=== PATIENT | female | born 1945 | race Caucasian/White ===

== ENCOUNTER 2016-07-10 14:14 | Outpatient (RCR) | payer MEDICARE ==
[~2016-07-10 14:14] MED LIST: ALBU8.5H2 IH; AMLO10TA82 PO; ASP81TEC PO; ATOR40TA PO; CLOP75TA PO; ETD200C PO; FEXO180T PO; FURO40TA4 PO; HYDR-3062 PO; HYDR-3584 PO; ISM30TCR PO; ISOS30TA3 PO; KCL20TCR PO; LEVO750T24 GT; LISI-593 PO; LISI40TA PO; LOPE2CAP29 PO; LORA10TA7 PO; LSNP10T PO; LSNP20T PO; MELO-198 PO; MNTL10T PO; MORP15TA PO; MS15TCR PO; NAPR-243 PO; NF-ESOM40C PO; NITR12SP5 TL; Oxygen NS; PNT40TEC PO; ROPI0.25 PO; ROPI0.5T PO; ROPI0.5T2 PO; ROPI1TAB PO; SMV20T PO; TRAM50TA2 PO; TRM50T PO
== END 2016-07-10 15:20 | disposition home or self-care (01) ==
PROVIDERS: ATTEND Nurse Practitioner Community Health
DX: M79.602 Pain in left arm (principal)

== ENCOUNTER 2017-01-18 18:20 | Emergency (ER) | payer MEDICARE ==
[~2017-01-18] VITALS: Ht 157.5 cm; Wt 74.8 kg
--- OUTSIDE RECORDS SUMMARY | 2017-01-18 18:26 | XMS REPORT ---
Author Author FUENTES PATIÑO Organization [employer] Address Unknown Phone Unavailable Care Team Providers Care Ham Clerk Name Role Phone FUENTES PATIÑO CP Unavailable Allergies No Known Allergies Problems Problem Type Condition Code Onset Dates Condition Status Problem Low back pain, unspecified back pain laterality, with sciatica presence unspecified M54.5 Active Problem Chronic obstructive pulmonary disease, unspecified COPD type J44.9 Active Problem Atherosclerotic heart disease of [place] coronary artery without angina pectoris I25.10 Active Medications No Known Medications Results No Known Results Summary Purpose eClinicalWorks Submission
--- OUTSIDE RECORDS SUMMARY | 2017-01-18 18:26 | XMS REPORT ---
Author Author FUENTES PATIÑO Organization [facility] Address [address] [place] [address] Care Team Providers Care Carpet Cutter Name Role Phone FUENTES PATIÑO Unavailable PROBLEMS Type Condition ICD9-CM Code XSF12-DT Code Onset Dates Condition Status SNOMED Code Problem Other chronic pain G89.29 Active 57277695 Problem Episodic cluster headache, not intractable G44.019 Active 466888390 Problem Low back pain, unspecified back pain laterality, with sciatica presence unspecified M54.5 Active 539964020 Problem Chronic obstructive pulmonary disease, unspecified COPD type J44.9 Active 74493537 Problem Acute pain due to injury G89.11 Active 615548575 Problem Atherosclerotic heart disease of [place] coronary artery without angina pectoris I25.10 Active [id number] ALLERGIES Unknown Allergies SOCIAL HISTORY No smoking Hx information available PLAN OF CARE VITAL SIGNS MEDICATIONS Medication Instructions Dosage Frequency Start Date End Date Duration Status Hydrocodone-Acetaminophen 5-325 MG Orally twice a day 1 tablet 12h 28 Jan, 2016 28 days Active RESULTS No Results PROCEDURES No Known procedures IMMUNIZATIONS No Known Immunizations
--- OUTSIDE RECORDS SUMMARY | 2017-01-18 18:26 | XMS REPORT ---
Author Author FUENTES PATIÑO Organization [employer] Address Unknown Phone Unavailable Care Team Providers Care Electronic Engraver Name Role Phone FUENTES PATIÑO CP Unavailable Allergies No Known Allergies Problems Problem Type Condition Code Onset Dates Condition Status Problem Atherosclerotic heart disease of [place] coronary artery without angina pectoris I25.10 Active Problem Low back pain, unspecified back pain laterality, with sciatica presence unspecified M54.5 Active Problem Acute pain due to injury G89.11 Active Problem Chronic obstructive pulmonary disease, unspecified COPD type J44.9 Active Assessment Low back pain, unspecified back pain laterality, with sciatica presence unspecified M54.5 Active Medications No Known Medications Results No Known Results Summary Purpose [employer]ClinicalWorks Submission
--- OUTSIDE RECORDS SUMMARY | 2017-01-18 18:26 | XMS REPORT ---
Author Author FUENTES PATIÑO Organization [employer] Address Unknown Phone Unavailable Care Team Providers Care Bail Bond Agent Name Role Phone FUENTES PATIÑO CP Unavailable Allergies No Known Allergies Problems Problem Type Condition Code Onset Dates Condition Status Problem Atherosclerotic heart disease of [place] coronary artery without angina pectoris I25.10 Active Problem Low back pain, unspecified back pain laterality, with sciatica presence unspecified M54.5 Active Problem Acute pain due to injury G89.11 Active Problem Chronic obstructive pulmonary disease, unspecified COPD type J44.9 Active Medications Medication Code System Code Instructions Start Date End Date Status Dosage Hydrocodone-Acetaminophen [facility] [address]-23 5-325 MG Orally twice a day May 05, 2014 1 tablet Results No Known Results Summary Purpose eClinicalWorks Submission
--- OUTSIDE RECORDS SUMMARY | 2017-01-18 18:26 | XMS REPORT ---
Author Author FUENTES PATIÑO Organization [employer] Address Unknown Phone Unavailable Care Team Providers Care Branch Manager Trainee Name Role Phone FUENTES PATIÑO CP Unavailable Allergies No Known Allergies Problems Problem Type Condition Code Onset Dates Condition Status Problem Atherosclerotic heart disease of [place] coronary artery without angina pectoris I25.10 Active Problem Low back pain, unspecified back pain laterality, with sciatica presence unspecified M54.5 Active Problem Acute pain due to injury G89.11 Active Problem Chronic obstructive pulmonary disease, unspecified COPD type J44.9 Active Medications Medication Code System Code Instructions Start Date End Date Status Dosage Claritin [facility] [address]-44 10 MG Orally 2 times a day 1 tablet Simvastatin [facility] [address]-52 20 MG TAKE ONE TABLET BY MOUTH AT BEDTIME Results No Known Results Summary Purpose eClinicalWorks Submission
--- OUTSIDE RECORDS SUMMARY | 2017-01-18 18:26 | XMS REPORT ---
Author Author FUENTES PATIÑO Organization [employer] Address Unknown Phone Unavailable Care Team Providers Care Checkout Supervisor Name Role Phone FUENTES PATIÑO CP Unavailable Allergies No Known Allergies Problems Problem Type Condition Code Onset Dates Condition Status Problem Atherosclerotic heart disease of [place] coronary artery without angina pectoris I25.10 Active Problem Low back pain, unspecified back pain laterality, with sciatica presence unspecified M54.5 Active Problem Acute pain due to injury G89.11 Active Problem Chronic obstructive pulmonary disease, unspecified COPD type J44.9 Active Medications Medication Code System Code Instructions Start Date End Date Status Dosage Etodolac [facility] [address]-69 200 MG Orally 3 times a day 1 capsule as needed Results No Known Results Summary Purpose eClinicalWorks Submission
--- OUTSIDE RECORDS SUMMARY | 2017-01-18 18:26 | XMS REPORT ---
Author Author FUENTES PATIÑO Organization [employer] Address Unknown Phone Unavailable Care Team Providers Care Senior Manager Creative Services Name Role Phone FUENTES PATIÑO CP Unavailable Allergies No Known Allergies Problems Problem Type Condition Code Onset Dates Condition Status Problem Atherosclerotic heart disease of [place] coronary artery without angina pectoris I25.10 Active Problem Low back pain, unspecified back pain laterality, with sciatica presence unspecified M54.5 Active Problem Acute pain due to injury G89.11 Active Problem Chronic obstructive pulmonary disease, unspecified COPD type J44.9 Active Medications Medication Code System Code Instructions Start Date End Date Status Dosage Hydrocodone-Acetaminophen [facility] [address]-83 5-325 MG 2 times a day May 05, 2014 1 tablet by Oral route 3 times per day Results No Known Results Summary Purpose eClinicalWorks Submission
--- OUTSIDE RECORDS SUMMARY | 2017-01-18 18:26 | XMS REPORT ---
Author Author FUENTES PATIÑO [facility] eClinical[employer] Address Unknown Phone Unavailable Care Team Providers Care Trust Vault Clerk Name Role Phone FUENTES PATIÑO CP Unavailable Allergies, Adverse Reactions, Alerts Substance Reaction Event Type Dilantin Info Not Available Drug Allergy Demerol Info Not Available Drug Allergy Aleve Info Not Available Drug Allergy Problems Problem Type Condition Code Onset Dates Condition Status Problem Atherosclerotic heart disease of [place] coronary artery without angina pectoris I25.10 Active Problem Low back pain, unspecified back pain laterality, with sciatica presence unspecified M54.5 Active Problem Acute pain due to injury G89.11 Active Assessment Acute pain due to injury G89.11 Active Problem Chronic obstructive pulmonary disease, unspecified COPD type J44.9 Active Assessment Other chronic pain G89.29 Active Medications Medication Code System Code Instructions Start Date End Date Status Dosage Zocor [facility] [address]-54 20 MG August 30, 2013 1 Tablet by Oral route 1 time per day--repository Lisinopril [facility] [address]-90 10 MG Orally August 02, 2013 take 2 tablet by Oral route 1 time per day-- trepository- pantoprazole NDC 0 40 mg August 07, 2012 take 1 tablet (40 mg) by oral route once daily-- repository Requip [facility] [id number] 0.5 MG Orally Once a day 1 tablet 1 to 3 hours before bedtime HydrOXYzine HCl [facility] [address]-97 25 mg Jan 26, 2014 take 1-2 tablet by Oral route 6 times per hour Albuterol NDC 0 90 mcg/actuation Inhalation Three times a day May 10, 2013 2 puffs by Inhalation route every 4 hours PRN Singulair [facility] [address]-92 10 MG Orally Once a day Dec 10, 2013 1 tablet by Oral route 1 time per day Gentamicin Sulfate [facility] [address]-37 0.3 % Ophthalmic Three times a day July 27, 2014 1 drop into affected eye Isosorbide Mononitrate [facility] [address]-53 30 mg Oct 08, 2013 take 1 tablet (30 mg) by oral route once daily in the morning Tizanidine HCl [facility] [address]-12 2 MG Orally Once a day at bedtime Feb 08, 2015 1 tablet as needed Etodolac [facility] [address]-86 200 MG Orally 3 times a day 1 capsule as needed HydrOXYzine HCl [facility] [address]-36 10 mg Orally every 6 hrs Jan 26, 2014 2-5 mg repository Imdur [facility] [id number] 30 MG TAKE ONE TABLET BY MOUTH ONCE DAILY Claritin [facility] 01997208539 10 MG Orally 2 times a day 1 tablet Acetaminophen [facility] [address]-33 500 mg Nov 05, 2012 1-2 tablet(s ) by Oral route every 6 hours PRN knee pain Lisinopril [facility] [address]-98 40 MG Orally Once a day Dec 15, 2014 1 tablet Simvastatin [facility] 08522405903 20 MG TAKE ONE TABLET BY MOUTH AT BEDTIME Hydrocodone-Acetaminophen [facility] [address]-57 5-325 MG x2 weeks May 05, 2014 1 tablet by Oral route 3 times per day Aspirin [facility] [address]-66 81 mg August 26, 2013 take 1 tablet by Oral route 1 time per day enteric coated Aspirin EC Low Dose [facility] 04771595477 81 MG TAKE ONE TABLET BY MOUTH ONCE DAILY Procedures Procedure Coding System Code Date Office Visit, Est Pt., Level 3 CPT-4 30302 Feb 08, 2015 [facility] VISIT ESTABLISHED PATIENT CPT-4 G0467 Feb 08, 2015 Vital Signs Date/Time: Feb 08, 2015 Temperature 97.12 F Weight 166.7 lbs Height 62 in BMI 30.49 Index Blood Pressure Diastolic 92 mmHg Blood Pressure Systolic 140 mmHg Cardiac Monitoring Heart Rate 64 bpm Results No Known Results Summary Purpose eClinicalWorks Submission
--- OUTSIDE RECORDS SUMMARY | 2017-01-18 18:26 | XMS REPORT ---
Author Author FUENTES PATIÑO [facility] [employer] Address Unknown Phone Unavailable Care Team Providers Care French Folding Machine Operator Name Role Phone FUENTES PATIÑO CP Unavailable Allergies No Known Allergies Problems Problem Type Condition Code Onset Dates Condition Status Problem Atherosclerotic heart disease of [place] coronary artery without angina pectoris I25.10 Active Problem Low back pain, unspecified back pain laterality, with sciatica presence unspecified M54.5 Active Problem Acute pain due to injury G89.11 Active Problem Chronic obstructive pulmonary disease, unspecified COPD type J44.9 Active Assessment Chronic obstructive pulmonary disease, unspecified COPD type J44.9 Active Medications Medication Code System Code Instructions Start Date End Date Status Dosage Singulair [facility] [address]-42 10 mg Orally Once a day Dec 10, 2013 1 tablet Aspirin EC Low Dose [facility] 96975178044 81 MG TAKE ONE TABLET BY MOUTH ONCE DAILY Etodolac [facility] [address]-36 200 mg Orally 3 times a day as needed for hand pain August 01, 2015 1 tablet Metformin HCl [facility] 97729064821 500 MG TAKE ONE TABELT BY MOUTH EVERY MORNING FOR 1 WEEK, THEN INCREASE TO TAKE ONE TABLET BY MOUTH TWICE DAILY Hydrocodone-Acetaminophen [facility] [address]-38 5-325 MG Orally twice a day May 05, 2014 1 tablet Zocor [facility] [address]-33 20 MG August 30, 2013 1 Tablet by Oral route 1 time per day Isosorbide Mononitrate [facility] [address]-80 30 MG Oct 08, 2013 take 1 tablet (30 mg) by oral route once daily in the morning ProAir HFA [facility] [address]-78 108 (90 Base) MCG/ACT Inhalation every 4 hrs September 08, 2015 2 puffs as needed for cough or wheeze Lisinopril [facility] [address]-05 40 mg Orally Once a day Dec 15, 2014 1 tablet Etodolac [facility] [address]-60 200 MG Orally 3 times a day 1 capsule as needed Requip [facility] [address]-28 0.5 MG Orally Once a day 1 tablet 1 to 3 hours before bedtime Results No Known Results Summary Purpose eClinicalWorks Submission
--- OUTSIDE RECORDS SUMMARY | 2017-01-18 18:26 | XMS REPORT ---
Author Author FUENTES PATIÑO Organization [employer] Address Unknown Phone Unavailable Care Team Providers Care Western Felt Hat Blocker Name Role Phone FUENTES PATIÑO CP Unavailable Allergies No Known Allergies Problems Problem Type Condition Code Onset Dates Condition Status Problem Atherosclerotic heart disease of [place] coronary artery without angina pectoris I25.10 Active Problem Low back pain, unspecified back pain laterality, with sciatica presence unspecified M54.5 Active Problem Acute pain due to injury G89.11 Active Problem Chronic obstructive pulmonary disease, unspecified COPD type J44.9 Active Assessment Low back pain, unspecified back pain laterality, with sciatica presence unspecified M54.5 Active Medications Medication Code System Code Instructions Start Date End Date Status Dosage Zocor [facility] [address]-55 20 MG August 30, 2013 1 Tablet by Oral route 1 time per day Etodolac [facility] [address]-80 200 MG Orally 3 times a day 1 capsule as needed ProAir HFA [facility] [address]-97 108 (90 Base) MCG/ACT Inhalation every 4 hrs September 08, 2015 2 puffs as needed for cough or wheeze Lisinopril [facility] [address]-87 40 mg Orally Once a day Dec 15, 2014 1 tablet Hydrocodone-Acetaminophen [facility] [address]-28 5-325 MG Orally twice a day May 05, 2014 1 tablet Isosorbide Mononitrate [facility] [address]-48 30 MG Oct 08, 2013 take 1 tablet (30 mg) by oral route once daily in the morning Singulair [facility] 59106546415 10 MG Take 1 tablet by mouth once a day Aspirin EC Low Dose [facility] 49540758803 81 MG TAKE ONE TABLET BY MOUTH ONCE DAILY Results No Known Results Summary Purpose eClinicalWorks Submission
--- OUTSIDE RECORDS SUMMARY | 2017-01-18 18:26 | XMS REPORT ---
Author Author ROSIE FISH Organization [facility] Address [address] [place] [address] Care Team Providers Care Hot Knife Cutter Name Role Phone ROSIE FISH Unavailable PROBLEMS Type Condition ICD9-CM Code [id number] Code Onset Dates Condition Status SNOMED Code Problem Other chronic pain G89.29 Active 85962651 Problem Episodic cluster headache, not intractable G44.019 Active 071257551 Problem Low back pain, unspecified back pain laterality, with sciatica presence unspecified M54.5 Active 286015114 Problem Chronic obstructive pulmonary disease, unspecified COPD type J44.9 Active 06156054 Problem Acute pain due to injury G89.11 Active 897667711 Problem Atherosclerotic heart disease of [place] coronary artery without angina pectoris I25.10 Active 7856771437320 ALLERGIES Substance Reaction Event Type Date Status Dilantin Unknown Drug Allergy Jan, Active Demerol Unknown Drug Allergy Jan, Active Benadryl rash Drug Allergy Jan, Active Aleve Unknown Drug Allergy Jan, Active SOCIAL HISTORY No smoking Hx information available PLAN OF CARE Activity Details Follow Up 2 Months Reason:nail trimming VITAL SIGNS Height 62 in 2016-02-13 Weight 170.7 lbs 2016-02-13 Temperature 97.8 degrees Fahrenheit 2016-02-13 Heart Rate 62 bpm 2016-02-13 Respiratory Rate 2016-02-13 BMI 31.22 kg/m2 2016-02-13 Blood pressure systolic 132 mmHg 2016-02-13 Blood pressure diastolic 86 mmHg 2016-02-13 MEDICATIONS Medication Instructions Dosage Frequency Start Date End Date Duration Status Singulair 10 MG Take 1 tablet by mouth once a day 90 Active Isosorbide Mononitrate 30 MG take 1 tablet (30 mg) by oral route once daily in the morning Sep, 90 Active Lisinopril 40 mg Orally Once a day 1 tablet 24h Nov, 90 days Active ProAir HFA 108 (90 Base) MCG/ACT Inhalation every 4 hrs 2 puffs as needed for cough or wheeze 4h 15 Aug, 2015 90 days Active Hydrocodone-Acetaminophen 5-325 MG Orally twice a day 1 tablet 12h 12 Apr, 2014 28 days Active Zocor 20 MG 1 Tablet by Oral route 1 time per day Aug, Active Etodolac 200 MG Orally 3 times a day 1 capsule as needed 8h Active RESULTS No Results PROCEDURES Procedure Date Ordered Related Diagnosis Body Site TRIM NAIL(S) 2016-02-13 N/A TRIM NAIL(S) Feb 13, 2016 Office Visit, Est Pt., Level 2 Feb 13, 2016 [facility] VISIT ESTABLISHED PATIENT Feb 13, 2016 IMMUNIZATIONS No Known Immunizations
--- OUTSIDE RECORDS SUMMARY | 2017-01-18 18:27 | XMS REPORT ---
Author Author FUENTES PATIÑO Organization [facility] Address [address] [place] [address] Care Team Providers Care Healthcare Advisory Services Manager Name Role Phone FUENTES PATIÑO Unavailable PROBLEMS Type Condition ICD9-CM Code [id number] Code Onset Dates Condition Status SNOMED Code Problem Other chronic pain G89.29 Active 23002307 Problem Episodic cluster headache, not intractable G44.019 Active 615337497 Problem Low back pain, unspecified back pain laterality, with sciatica presence unspecified M54.5 Active 685145429 Problem Chronic obstructive pulmonary disease, unspecified COPD type J44.9 Active 82188894 Problem Acute pain due to injury G89.11 Active 149652240 Problem Atherosclerotic heart disease of [place] coronary artery without angina pectoris I25.10 Active 3622514561541 ALLERGIES Unknown Allergies SOCIAL HISTORY No smoking Hx information available PLAN OF CARE VITAL SIGNS MEDICATIONS Medication Instructions Dosage Frequency Start Date End Date Duration Status Neurontin 100 MG Orally Once a day at bedtime 1 tablet Feb, 10 days Active RESULTS No Results PROCEDURES No Known procedures IMMUNIZATIONS No Known Immunizations
--- OUTSIDE RECORDS SUMMARY | 2017-01-18 18:27 | XMS REPORT ---
Author FUENTES Hatfield Organization [employer] Address Unknown Phone Unavailable Care Team Providers Care Python Architect Name Role Phone FUENTES PATIÑO CP Unavailable Allergies No Known Allergies Problems Problem Type Condition Code Onset Dates Condition Status Problem Atherosclerotic heart disease of [place] coronary artery without angina pectoris I25.10 Active Problem Low back pain, unspecified back pain laterality, with sciatica presence unspecified M54.5 Active Problem Acute pain due to injury G89.11 Active Problem Chronic obstructive pulmonary disease, unspecified COPD type J44.9 Active Medications Medication Code System Code Instructions Start Date End Date Status Dosage Hydrocodone-Acetaminophen [facility] [address]-51 5-325 MG Orally twice a day May 05, 2014 1 tablet Results No Known Results Summary Purpose eClinicalWorks Submission
--- OUTSIDE RECORDS SUMMARY | 2017-01-18 18:27 | XMS REPORT ---
Author Author FUENTES PATIÑO Organization [employer] Address Unknown Phone Unavailable Care Team Providers Care Ornamental Metal Erector Name Role Phone FUENTES PATIÑO CP Unavailable Allergies No Known Allergies Problems Problem Type Condition Code Onset Dates Condition Status Problem Atherosclerotic heart disease of [place] coronary artery without angina pectoris I25.10 Active [...] Hydrocodone-Acetaminophen [facility] [address]-34 5-325 MG Orally twice a day May 05, 2014 1 tablet Results No Known Results Summary Purpose eClinicalWorks Submission
--- OUTSIDE RECORDS SUMMARY | 2017-01-18 18:27 | XMS REPORT ---
Author Author EDA TINEO [facility] Address [address] [place] [id number] Phone Unavailable Care Team Providers Care Athletic Equipment Manager Name Role Phone EDA TINEO Unavailable Unavailable PROBLEMS Type Condition ICD9-CM Code [id number] Code Onset Dates Condition Status SNOMED Code Problem Other chronic pain G89.29 Active 89868587 Problem Episodic cluster headache, not intractable G44.019 Active 922494245 Problem Chronic obstructive pulmonary disease, unspecified COPD type J44.9 Active 95495387 Problem Low back pain, unspecified back pain laterality, with sciatica presence unspecified M54.5 Active 014497494 Problem Acute pain due to injury G89.11 Active 152954573 Problem Atherosclerotic heart disease of [place] coronary artery without angina pectoris I25.10 Active 1507442393750 ALLERGIES Substance Reaction Event Type Date Status Dilantin Unknown Drug Allergy Feb, Active Demerol Unknown Drug Allergy Feb, Active Benadryl rash Drug Allergy Feb, Active Aleve Unknown Drug Allergy Feb, Active SOCIAL HISTORY No smoking Hx information available PLAN OF CARE Activity Details Follow Up dania Reason:[place]IL[place] VITAL SIGNS Blood pressure systolic 133 mmHg 2016-02-26 Blood pressure diastolic 82 mmHg 2016-02-26 MEDICATIONS Medication Instructions Dosage Frequency Start Date End Date Duration Status Isosorbide Mononitrate 30 MG take 1 tablet (30 mg) by oral route once daily in the morning Sep, 90 Active Singulair 10 MG Take 1 tablet by mouth once a day 90 Active Hydrocodone-Acetaminophen 5-325 MG Orally twice a day 1 tablet 12h Jan, 28 days Active Neurontin 100 MG Orally Once a day at bedtime 1 tablet Feb, 10 days Active Lisinopril 40 mg Orally Once a day 1 tablet 24h Nov, 90 days Active Oxygen ... by inhalation route at bedtime 2L via nasal canula Active ProAir HFA 108 (90 Base) MCG/ACT Inhalation every 4 hrs 2 puffs as needed for cough or wheeze 4h Aug, 90 days Active PredniSONE 10 mg Orally 3 tabs daily X 3 days, 2 tabs dailyX 2 days 1 tab for 1 day 4 tablet daily X 4 days. Jan, Feb, 10 days Active Zocor 20 MG 1 Tablet by Oral route 1 time per day Aug, Active Aspirin EC Low Dose 81 MG TAKE ONE TABLET BY MOUTH ONCE DAILY 120 Active Etodolac 200 mg Orally 3 times a day as needed for hand pain 1 tablet Jul, Active RESULTS No Results PROCEDURES Procedure Date Ordered Related Diagnosis Body Site INTRAORL-PERIAPICAL 1 FILM 91652 Feb 26, 2016 INTRAORL-PERIAPICAL EA ADD FILM Feb 26, 2016 PROPHYLAXIS - ADULT Feb 26, 2016 PANORAMIC FILM SEE ALSO CODE 80391 Feb 26, 2016 TOPICAL FLUORIDE VARNISH Feb 26, 2016 BITEWINGS - THREE FILMS Feb 26, 2016 IMMUNIZATIONS No Known Immunizations
--- OUTSIDE RECORDS SUMMARY | 2017-01-18 18:27 | XMS REPORT ---
Author FUENTES [facility] eClinicalWorks Address Unknown Phone Unavailable Care Team Providers Care Lining Machine Tender Name Role Phone FUENTES PATIÑO CP Unavailable [...] J44.9 Active Problem Atherosclerotic heart disease of [place] coronary artery without angina pectoris I25.10 Active Assessment Essential hypertension I10 Active Assessment Viral infection, unspecified B34.9 Active Medications Medication Code System Code Instructions Start Date End Date Status Dosage Isosorbide Mononitrate [facility] [address]-19 30 mg Oct 08, 2013 take 1 tablet (30 mg) by oral route once daily in the morning HydrOXYzine HCl [facility] [address]-20 10 mg Orally every 6 hrs Jan 26, 2014 2-5 mg repository Gentamicin Sulfate [facility] [address]-41 0.3 % Ophthalmic Three times a day July 27, 2014 1 drop into affected eye pantoprazole [facility] 0 40 mg August 07, 2012 take 1 tablet (40 mg) by oral route once daily-- repository Etodolac [facility] [address]-97 200 MG Orally 3 times a day 1 capsule as needed Aspirin [facility] [address]-02 81 mg August 26, 2013 take 1 tablet by Oral route 1 time per day enteric coated Zocor [facility] [address]-41 20 MG August 30, 2013 1 Tablet by Oral route 1 time per day--repository Simvastatin [facility] 22738119790 20 MG TAKE ONE TABLET BY MOUTH AT BEDTIME Acetaminophen [facility] [address]-77 500 mg Nov 05, 2012 1-2 tablet(s ) by Oral route every 6 hours PRN knee pain Claritin [facility] 25454422148 10 MG Orally 2 times a day 1 tablet Imdur [facility] 95336297733 30 MG TAKE ONE TABLET BY MOUTH ONCE DAILY Lisinopril [facility] [address]-89 40 MG Orally Once a day Dec 15, 2014 1 tablet Aspirin EC Low Dose [facility] 74595523823 81 MG TAKE ONE TABLET BY MOUTH ONCE DAILY Albuterol [facility] 0 90 mcg/actuation Inhalation Three times a day May 10, 2013 2 puffs by Inhalation route every 4 hours PRN Hydrocodone-Acetaminophen [facility] [address]-11 5-325 MG May 05, 2014 1 tablet by Oral route 2 times per day for knee pain HydrOXYzine HCl [facility] [address]-47 25 mg Jan 26, 2014 take 1-2 tablet by Oral route 6 times per hour Singulair [facility] [address]-47 10 MG Orally Once a day Dec 10, 2013 1 tablet by Oral route 1 time per day Requip [facility] [address]-48 0.5 MG Orally Once a day July 27, 2014 1 tablet 1 to 3 hours before bedtime Lisinopril [facility] [address]-71 10 MG Orally August 02, 2013 take 2 tablet by Oral route 1 time per day-- trepository- Lisinopril [facility] [address]-22 20 mg August 02, 2013 take 1 tablet by Oral route 1 time per day Procedures Procedure Coding System Code Date Office Visit, Est Pt., Level 3 CPT-4 18075 Dec 15, 2014 [facility] VISIT ESTABLISHED PATIENT CPT-4 G0467 Dec 15, 2014 Vital Signs Date/Time: Dec 15, 2014 Temperature 97.5 F Weight 170 lbs Height 62 in BMI 31.09 Index Blood Pressure Diastolic 98 mmHg Blood Pressure Systolic 160 mmHg Cardiac Monitoring Heart Rate 80 bpm Results No Known Results Summary Purpose eClinicalWorks Submission
--- OUTSIDE RECORDS SUMMARY | 2017-01-18 18:27 | XMS REPORT ---
Author Author FUENTES PATIÑO Organization eClinicalWorks Address Unknown Phone Unavailable Care Team Providers Care Fresh Work Inspector Name Role Phone FUENTES PATIÑO CP Unavailable Allergies No Known Allergies Problems Problem Type Condition Code Onset Dates Condition Status Problem Atherosclerotic heart disease of [place] coronary artery without angina pectoris I25.10 Active Problem Low back pain, unspecified back pain laterality, with sciatica presence unspecified M54.5 Active Problem Acute pain due to injury G89.11 Active Problem Chronic obstructive pulmonary disease, unspecified COPD type J44.9 Active Assessment Low back pain, unspecified back pain laterality, with sciatica presence unspecified M54.5 Active Medications No Known Medications Procedures Procedure Coding System Code Date No Charge CPT-4 83998 Feb 08, 2015 Results Name Result Date Reference Range Unit Abnormality Flag [employer] Summary Purpose eClinicalWorks Submission
--- OUTSIDE RECORDS SUMMARY | 2017-01-18 18:27 | XMS REPORT ---
Author Author FUENTES PATIÑO Organization eClinicalWorks Address Unknown Phone Unavailable Care Team Providers Care Silk Conditioner Name Role Phone FUENTES PATIÑO CP Unavailable Allergies No Known Allergies Problems Problem Type Condition Code Onset Dates Condition Status Problem Atherosclerotic heart disease of [place] coronary artery without angina pectoris I25.10 Active Problem Low back pain, unspecified back pain laterality, with sciatica presence unspecified M54.5 Active Problem Acute pain due to injury G89.11 Active Problem Chronic obstructive pulmonary disease, unspecified COPD type J44.9 Active Medications Medication Code System Code Instructions Start Date End Date Status Dosage Lisinopril [facility] [address]-00 40 MG Orally Once a day Dec 15, 2014 1 tablet Requip [facility] [address]-83 0.5 MG Orally Once a day 1 tablet 1 to 3 hours before bedtime Singulair [facility] [address]-31 10 MG Orally Once a day Dec 10, 2013 1 tablet by Oral route 1 time per day Results No Known Results Summary Purpose eClinicalWorks Submission
--- OUTSIDE RECORDS SUMMARY | 2017-01-18 18:27 | XMS REPORT ---
Author Author FUENTES PATIÑO Organization [facility] Address [address] [place] [address] Care Team Providers Care Mold Closer Name Role Phone FUENTES PATIÑO Unavailable PROBLEMS Type Condition ICD9-CM Code [id number] Code Onset Dates Condition Status SNOMED Code Problem Other chronic pain G89.29 Active 22999686 Problem Episodic cluster headache, not intractable G44.019 Active 857289073 Problem Chronic obstructive pulmonary disease, unspecified COPD type J44.9 Active 66507245 Problem Low back pain, unspecified back pain laterality, with sciatica presence unspecified M54.5 Active 206673030 Problem Acute pain due to injury G89.11 Active 466347967 Problem Atherosclerotic heart disease of [place] coronary artery without angina pectoris I25.10 Active 4486916042239 ALLERGIES Unknown Allergies SOCIAL HISTORY No smoking Hx information available PLAN OF CARE VITAL SIGNS MEDICATIONS Medication Instructions Dosage Frequency Start Date End Date Duration Status Hydrocodone-Acetaminophen 5-325 MG Orally twice a day 1 tablet 12h Feb, 28 days Active RESULTS No Results PROCEDURES No Known procedures IMMUNIZATIONS No Known Immunizations
--- OUTSIDE RECORDS SUMMARY | 2017-01-18 18:27 | XMS REPORT ---
Author Author LORE PATIÑO Organization eClinicalWorks Address Unknown Phone Unavailable Care Team Providers Care Spinning Frame Fixer Name Role Phone LORE PATIÑO CP Unavailable Allergies No Known Allergies Problems Problem Type Condition ICD-9 Code Onset Dates Condition Status Problem Polyuria 788.42 Active Problem Lumbago 724.2 Active Problem Other and unspecified angina pectoris 413.9 Active Problem Dermatophytosis of nail 110.1 Active Problem Other screening mammogram V76.12 Active Problem Other and unspecified noninfectious gastroenteritis and colitis 558.9 Active Problem Dysphagia, unspecified 787.20 Active Problem Other abnormal glucose 790.29 Active Problem Chronic airway obstruction, not elsewhere classified 496 Active Problem Hemangioma of unspecified site 228.00 Active Problem Pneumonia, organism unspecified 486 Active Problem Other drug allergy 995.27 Active Problem Edema 782.3 Active Problem Headache 784.0 Active Problem Pain in soft tissues of limb 729.5 Active Problem Hypopotassemia 276.8 Active Problem Pain in joint, lower leg 719.46 Active Problem Coronary atherosclerosis of [place] coronary artery 414.01 Active Problem Dehydration 276.51 Active Problem Unspecified breast screening V76.10 Active Problem Unspecified infective otitis externa 380.10 Active Problem Coronary atherosclerosis of unspecified type of vessel, [place] or graft 414.00 Active Medications Medication Code System Code Instructions Start Date End Date Status Dosage Hydrocodone-Acetaminophen [facility] [address]-31 5-[address] Segovia to sign in Lore's absence May 05, 2014 1 tablet by Oral route 2 times per day for knee pain Results No Known Results Summary Purpose eClinicalWorks Submission
--- OUTSIDE RECORDS SUMMARY | 2017-01-18 18:27 | XMS REPORT ---
Author Author FUENTES PATIÑO Organization eClinicalWorks Address Unknown Phone Unavailable Care Team Providers Care Biopsychologist Name Role Phone FUENTES PATIÑO CP Unavailable Allergies No Known Allergies Problems Problem Type Condition Code Onset Dates Condition Status Problem Atherosclerotic heart disease of [place] coronary artery without angina pectoris I25.10 Active Problem Low back pain, unspecified back pain laterality, with sciatica presence unspecified M54.5 Active Problem Acute pain due to injury G89.11 Active Problem Chronic obstructive pulmonary disease, unspecified COPD type J44.9 Active Medications Medication Code System Code Instructions Start Date End Date Status Dosage Albuterol [facility] 0 90 mcg/actuation Inhalation Three times a day May 10, 2013 2 puffs by Inhalation route every 4 hours PRN Etodolac [facility] [address]-99 200 MG Orally 3 times a day 1 capsule as needed Isosorbide Mononitrate [facility] [address]-73 30 MG Oct 08, 2013 take 1 tablet (30 mg) by oral route once daily in the morning Results No Known Results Summary Purpose eClinicalWorks Submission
--- OUTSIDE RECORDS SUMMARY | 2017-01-18 18:27 | XMS REPORT ---
Author Author FUENTES PATIÑO Organization [facility] Address [address] [place] [address] Care Team Providers Care Jailer/Training Officer Name Role Phone FUENTES PATIÑO Unavailable PROBLEMS Type Condition ICD9-CM Code [id number] Code Onset Dates Condition Status SNOMED Code Problem Low back pain, unspecified back pain laterality, with sciatica presence unspecified M54.5 Active 241750047 Problem Acute bilateral low back pain with left-sided sciatica M54.42 Active 28729818 Problem Other chronic pain G89.29 Active 62943830 Problem Atherosclerotic heart disease of [place] coronary artery without angina pectoris I25.10 Active 7122128946639 Problem Chronic obstructive pulmonary disease, unspecified COPD type J44.9 Active 58723019 Problem Episodic cluster headache, not intractable G44.019 Active 712490182 Problem Acute pain due to injury G89.11 Active 041649019 ALLERGIES No Information SOCIAL HISTORY Never Assessed PLAN OF CARE VITAL SIGNS MEDICATIONS Medication Instructions Dosage Frequency Start Date End Date Duration Status Hydrocodone-Acetaminophen 5-325 MG Orally twice a day 1 tablet 12h 14 Jun, 2016 28 days Active RESULTS No Results PROCEDURES No Known procedures IMMUNIZATIONS No Known Immunizations MEDICAL (GENERAL) HISTORY Type Description Date Medical History hypertension Medical History hyperlipidemia Medical History type II diabetes Medical History osteoarthritis Medical History chronic obstructive pulmonary disease (COPD) Medical History coronary artery disease Medical History back pain (2 displaced vertebrae) Medical History echo (11/2012) WNL Medical History asthma Medical History restless leg syndrome Surgical History heart cath-stent mid to distal circumflex () 07/2012 Surgical History heart cath-stent to LAD for 60% stenosis () 08/2012 Surgical History heart cath-stents showed minimal dz, but were patent, 95% occlusion of small vessels; too small to stent ([facility]) 08/2013 Surgical History EGD-dilated stricture (I[facility]) 09/2012 Surgical History cholecystectomy Surgical History hysterectomy Surgical History appendectomy Surgical History spine surgery-halo (neck and back surgery) 1993 Surgical History carpal tunnel release Surgical History rectocele/cystocele repair, pessary fitted ([facility]) 05/2013 Surgical History Suspicious lesion removal 2015 Hospitalization History [facility] acute gastoentereritis, dehydration 06/06 Hospitalization History Heart Cath 2013
--- OUTSIDE RECORDS SUMMARY | 2017-01-18 18:28 | XMS REPORT ---
Author Author FUENTES PATIÑO [facility] Address [address] [place] [address] Care Team Providers Care Technician Name Role Phone FUENTES PATIÑO Unavailable PROBLEMS Type Condition ICD9-CM Code [id number] Code Onset Dates Condition Status SNOMED Code Problem Other chronic pain G89.29 Active 15422926 Problem Episodic cluster headache, not intractable G44.019 Active 555111483 Problem Low back pain, unspecified back pain laterality, with sciatica presence unspecified M54.5 Active 340266077 Problem Chronic obstructive pulmonary disease, unspecified COPD type J44.9 Active 11566302 Problem Acute pain due to injury G89.11 Active 114096409 Problem Atherosclerotic heart disease of [place] coronary artery without angina pectoris I25.10 Active 5462217256871 ALLERGIES Unknown Allergies SOCIAL HISTORY No smoking Hx information available PLAN OF CARE VITAL SIGNS MEDICATIONS Unknown Medications RESULTS No Results PROCEDURES No Known procedures IMMUNIZATIONS No Known Immunizations
--- OUTSIDE RECORDS SUMMARY | 2017-01-18 18:28 | XMS REPORT ---
Author Author ROSIE FISH Organization [facility] Address [address] [place] [address] Care Team Providers Care Personal Development Educator Name Role Phone ROSIE FISH Unavailable PROBLEMS Type Condition ICD9-CM Code ETC25-IT Code Onset Dates Condition Status SNOMED Code Problem Low back pain, unspecified back pain laterality, with sciatica presence unspecified M54.5 Active 158492177 Problem Acute bilateral low back pain with left-sided sciatica M54.42 Active 12371890 Problem Other chronic pain G89.29 Active 59723032 Problem Atherosclerotic heart disease of [place] coronary artery without angina pectoris I25.10 Active 3076709772035 Problem Chronic obstructive pulmonary disease, unspecified COPD type J44.9 Active 46047358 Problem Episodic cluster headache, not intractable G44.019 Active 919095537 Problem Acute pain due to injury G89.11 Active 727178459 ALLERGIES Substance Reaction Event Type Date Status Dilantin Unknown Drug Allergy Mar, Active Demerol Unknown Drug Allergy Mar, Active Benadryl rash Drug Allergy Mar, Active Aleve Unknown Drug Allergy Mar, Active SOCIAL HISTORY Never Assessed PLAN OF CARE Activity Details Follow Up 2 Months Reason:nail trimming. VITAL SIGNS Height 62 in 2016-04-23 Weight 168 lbs 2016-04-23 Heart Rate 80 bpm 2016-04-23 Respiratory Rate 18 2016-04-23 BMI 30.72 kg/m2 2016-04-23 Blood pressure systolic 130 mmHg 2016-04-23 Blood pressure diastolic 88 mmHg 2016-04-23 MEDICATIONS Medication Instructions Dosage Frequency Start Date End Date Duration Status Zocor 20 MG 1 Tablet by Oral route 1 time per day Aug, Active Mobic 15 MG Orally Once a day 1 tablet 24h Mar, 30 days Active Hydrocodone-Acetaminophen 5-325 MG Orally twice a day 1 tablet 12h Mar, 28 days Active Oxygen ... by inhalation route at bedtime 2L via nasal canula Active Neurontin 100 MG Orally Once a day at bedtime 1 tablet Feb, 10 days Active Ibuprofen 800 MG Orally Three times a day 1 tablet 8h 14 Mar, 2016Apr 30 day(s) Active Isosorbide Mononitrate 30 MG take 1 tablet (30 mg) by oral route once daily in the morning Sep, 90 Active ProAir HFA 108 (90 Base) MCG/ACT Inhalation every 4 hrs 2 puffs as needed for cough or wheeze 4h Aug, 90 days Active Singulair 10 MG Take 1 tablet by mouth once a day 90 Active Lisinopril 40 mg Orally Once a day 1 tablet 24h Nov, 90 days Active Aspirin EC Low Dose 81 MG TAKE ONE TABLET BY MOUTH ONCE DAILY 120 Active RESULTS No Results PROCEDURES Procedure Date Ordered Result Body Site [facility] VISIT ESTABLISHED PATIENT Apr 23, 2016 IMMUNIZATIONS No Known Immunizations MEDICAL (GENERAL) HISTORY [...] History heart cath-stent mid to distal circumflex ([facility]) 07/2012 Surgical History heart cath-stent to L[facility] for 60% stenosis [facility]) 08/2012 Surgical History heart cath-stents showed minimal dz, but were patent, 95% occlusion of small vessels; too small to stent ([facility]) 08/2013 Surgical History EGD-dilated stricture ([facility]) 09/2012 Surgical History cholecystectomy Surgical History hysterectomy Surgical History appendectomy Surgical History spine surgery-halo (neck and back surgery) 1993 Surgical History carpal tunnel release Surgical History rectocele/cystocele repair, pessary fitted ([facility]) 05/2013 Surgical History Suspicious lesion removal 2015 Hospitalization History [facility] acute gastoentereritis, dehydration 06/06 Hospitalization History Heart Cath 2013
--- OUTSIDE RECORDS SUMMARY | 2017-01-18 18:28 | XMS REPORT ---
Author Author FUENTES PATIÑO Organization [facility] Address [address] [place] [address] Care Team Providers Care Hat Forming Machine Feeder Name Role Phone FUENTSE PATIÑO Unavailable PROBLEMS Type Condition ICD9-CM Code QIO22-BL Code Onset Dates Condition Status SNOMED Code Problem Low back pain, unspecified back pain laterality, with sciatica presence unspecified M54.5 Active 779638862 Problem Acute bilateral low back pain with left-sided sciatica M54.42 Active 54266846 Problem Other chronic pain G89.29 Active 44666498 Problem Atherosclerotic heart disease of [place] coronary artery without angina pectoris I25.10 Active 6015536369095 Problem Chronic obstructive pulmonary disease, unspecified COPD type J44.9 Active 04753369 Problem Episodic cluster headache, not intractable G44.019 Active 454742258 Problem Acute pain due to injury G89.11 Active 102175447 ALLERGIES No Information SOCIAL HISTORY Never Assessed PLAN OF CARE VITAL SIGNS MEDICATIONS Medication Instructions Dosage Frequency Start Date End Date Duration Status Hydrocodone-Acetaminophen 5-325 MG Orally twice a day 1 tablet 12h 17 Apr, 2016 28 days Active RESULTS No Results [...] of small vessels; too small to stent () 08/2013 Surgical History EGD-dilated stricture (Ivan) 09/2012 Surgical History cholecystectomy Surgical History hysterectomy Surgical History appendectomy Surgical History spine surgery-halo (neck and back surgery) 1993 Surgical History carpal tunnel release Surgical History rectocele/cystocele repair, pessary fitted ([facility]) 05/2013 Surgical History Suspicious lesion removal 2015 Hospitalization History [facility] acute gastoentereritis, dehydration 06/06 Hospitalization History Heart Cath 2013
--- OUTSIDE RECORDS SUMMARY | 2017-01-18 18:28 | XMS REPORT ---
Author Author FUENTES PATIÑO Organization eClinicalWorks Address Unknown Phone Unavailable Care Team Providers Care Student Accounts Coordinator Name Role Phone FUENTES PATIÑO CP Unavailable Allergies No Known Allergies Problems Problem Type Condition Code Onset Dates Condition Status Problem Atherosclerotic heart disease of [place] coronary artery without angina pectoris I25.10 Active Problem Low back pain, unspecified back pain laterality, with sciatica presence unspecified M54.5 Active Problem Acute pain due to injury G89.11 Active Problem Chronic obstructive pulmonary disease, unspecified COPD type J44.9 Active Medications No Known Medications Results No Known Results Summary Purpose eClinicalWorks Submission
--- OUTSIDE RECORDS SUMMARY | 2017-01-18 18:28 | XMS REPORT ---
Author Author ROSIE FISH Organization [facility] Address [address] [place] [address] Care Team Providers Care Funeral Director'S Assistant Name Role Phone ROSIE FISH Unavailable PROBLEMS Type Condition ICD9-CM Code [id number] Code Onset Dates Condition Status SNOMED Code Problem Low back pain, unspecified back pain laterality, with sciatica presence unspecified M54.5 Active 452080395 Problem Acute bilateral low back pain with left-sided sciatica M54.42 Active 16690727 Problem Other chronic pain G89.29 Active 91032781 Problem Atherosclerotic heart disease of [place] coronary artery without angina pectoris I25.10 Active 9599809771929 Problem Chronic obstructive pulmonary disease, unspecified COPD type J44.9 Active 04777234 Problem Episodic cluster headache, not intractable G44.019 Active 326979506 Problem Acute pain due to injury G89.11 Active 535635960 ALLERGIES Substance Reaction Event Type Date Status Dilantin Unknown Drug Allergy June, Active Demerol Unknown Drug Allergy June, Active Benadryl rash Drug Allergy June, Active Aleve Unknown Drug Allergy June, Active SOCIAL HISTORY Never Assessed PLAN OF CARE Activity Details Follow Up 2 Months Reason:nail trimming Future/Pending Procedure TRIM NAIL(S) VITAL SIGNS Height 62 in 2016-07-19 Weight 167.8 lbs 2016-07-19 Temperature 98.3 degrees Fahrenheit 2016-07-19 Heart Rate 66 bpm 2016-07-19 Respiratory Rate 18 2016-07-19 BMI 30.69 kg/m2 2016-07-19 Blood pressure systolic 100 mmHg 2016-07-19 Blood pressure diastolic 70 mmHg 2016-07-19 MEDICATIONS Medication Instructions Dosage Frequency Start Date End Date Duration Status Oxygen ... by inhalation route at bedtime 2L via nasal canula Active Simvastatin 20 MG Take 1 tablet by mouth once a day in the evening 90 Active Lisinopril 40 mg Orally Once a day 1 tablet 24h Nov, 90 days Active Mobic 15 MG Orally Once a day 1 tablet 24h 30 Active Isosorbide Mononitrate 30 MG take 1 tablet (30 mg) by oral route once daily in the morning Sep, 90 Active Aspirin EC Low Dose 81 MG TAKE ONE TABLET BY MOUTH ONCE DAILY 120 Active Hydrocodone-Acetaminophen 5-325 MG Orally twice a day 1 tablet 12h June, 28 days Active Zocor 20 MG 1 Tablet by Oral route 1 time per day Aug, Active ProAir HFA 108 (90 Base) MCG/ACT Inhalation every 4 hrs 2 puffs as needed for cough or wheeze 4h Aug, 90 days Active Singulair 10 MG Orally Once a day 1 tablet 24h 90 days Active RESULTS No Results PROCEDURES Procedure Date Ordered Result Body Site TRIM NAIL(S) July 19, 2016 [facility] VIS[facility] ESTABLISHED PATIENT July 19, 2016 IMMUNIZATIONS No Known Immunizations MEDICAL (GENERAL) [...] heart cath-stent to LAD for 60% stenosis ([facility]) 08/2012 Surgical History heart cath-stents showed minimal dz, but were patent, 95% occlusion of small vessels; too small to stent ([facility]) 08/2013 Surgical History EGD-dilated stricture (Ivan) 09/2012 Surgical History cholecystectomy Surgical History hysterectomy Surgical History appendectomy Surgical History spine surgery-halo (neck and back surgery) 1993 Surgical History carpal tunnel release Surgical History rectocele/cystocele repair, pessary fitted ([facility]) 05/2013 Surgical History Suspicious lesion removal 2015 Hospitalization History [facility] acute gastoentereritis, dehydration 06/06 Hospitalization History Heart Cath 2013
--- OUTSIDE RECORDS SUMMARY | 2017-01-18 18:28 | XMS REPORT ---
Author Author FUENTES PATIÑO Organization eClinicalWorks Address Unknown Phone Unavailable Care Team Providers Care Guest Experience Representative Name Role Phone FUENTES PATIÑO CP Unavailable Allergies No Known Allergies Problems Problem Type Condition Code Onset Dates Condition Status Problem Atherosclerotic heart disease of [place] coronary artery without angina pectoris I25.10 Active Problem Low back pain, unspecified back pain laterality, with sciatica presence unspecified M54.5 Active Problem Acute pain due to injury G89.11 Active Problem Chronic obstructive pulmonary disease, unspecified COPD type J44.9 Active Medications No Known Medications Results No Known Results Summary Purpose eClinicalWorks Submission
--- OUTSIDE RECORDS SUMMARY | 2017-01-18 18:28 | XMS REPORT ---
Author Author [facility] Address Unknown Care Team Providers Care Manager Transportation Planning Name Role Phone BETY TAMAYO Unavailable PROBLEMS Type Condition ICD9-CM Code [id number] Code Onset Dates Condition Status SNOMED Code Problem Other chronic pain G89.29 Active 75928056 Problem Episodic cluster headache, not intractable G44.019 Active 006762833 Problem Chronic obstructive pulmonary disease, unspecified COPD type J44.9 Active 25772923 Problem Low back pain, unspecified back pain laterality, with sciatica presence unspecified M54.5 Active 422543760 Problem Acute pain due to injury G89.11 Active 918087471 Problem Atherosclerotic heart disease of [place] coronary artery without angina pectoris I25.10 Active 3586216288809 ALLERGIES Substance Reaction Event Type Date Status Dilantin Unknown Drug Allergy Feb, Active Demerol Unknown Drug Allergy Feb, Active Benadryl rash Drug Allergy Feb, Active Aleve Unknown Drug Allergy Feb, Active SOCIAL HISTORY No smoking Hx information available PLAN OF CARE Activity Details Follow Up 6 Months Reason:recall VITAL SIGNS MEDICATIONS Medication Instructions Dosage Frequency Start Date End Date Duration Status Isosorbide Mononitrate 30 MG take 1 tablet (30 mg) by oral route once daily in the morning Sep, 90 Active Oxygen ... by inhalation route at bedtime 2L via nasal canula Active Hydrocodone-Acetaminophen 5-325 MG Orally twice a day 1 tablet 12h Jan, 28 days Active Etodolac 200 mg Orally 3 times a day as needed for hand pain 1 tablet Jul, Active Lisinopril 40 mg Orally Once a day 1 tablet 24h Nov, 90 days Active ProAir HFA 108 (90 Base) MCG/ACT Inhalation every 4 hrs 2 puffs as needed for cough or wheeze 4h Aug, 90 days Active Singulair 10 MG Take 1 tablet by mouth once a day 90 Active Neurontin 100 MG Orally Once a day at bedtime 1 tablet Feb, 10 days Active Zocor 20 MG 1 Tablet by Oral route 1 time per day Aug, Active Aspirin EC Low Dose 81 MG TAKE ONE TABLET BY MOUTH ONCE DAILY 120 Active PredniSONE 10 mg Orally 3 tabs daily X 3 days, 2 tabs dailyX 2 days 1 tab for 1 day 4 tablet daily X 4 days. Jan, Feb, 10 days Active RESULTS No Results PROCEDURES Procedure Date Ordered Related Diagnosis Body Site COMP ORAL EVALUATION - NEW/EST PT Feb 27, 2016 IMMUNIZATIONS No Known Immunizations
--- OUTSIDE RECORDS SUMMARY | 2017-01-18 18:28 | XMS REPORT ---
Author Author AYE REYES Organization [facility] Address [address] [place] [address] Care Team Providers Care Sterile Proc Tech Name Role Phone KJ REYESICE Unavailable PROBLEMS Type Condition ICD9-CM Code [id number] Code Onset Dates Condition Status SNOMED Code Problem Low back pain, unspecified back pain laterality, with sciatica presence unspecified M54.5 Active 719363413 Problem Acute bilateral low back pain with left-sided sciatica M54.42 Active 07045254 Problem Other chronic pain G89.29 Active 88542416 Problem Atherosclerotic heart disease of the [place] coronary artery without angina pectoris I25.10 Active 6079614234650 Problem Chronic obstructive pulmonary disease, unspecified COPD type J44.9 Active 79869655 Problem Episodic cluster headache, not intractable G44.019 Active 885318695 Problem Acute pain due to injury G89.11 Active 501993519 ALLERGIES Substance Reaction Event Type Date Status Dilantin Unknown Drug Allergy Mar, Active Demerol Unknown Drug Allergy Mar, Active Benadryl rash Drug Allergy Mar, Active Aleve Unknown Drug Allergy Mar, Active SOCIAL HISTORY Never Assessed PLAN OF CARE Activity Details Follow Up prn Reason: VITAL SIGNS Height 62 in 2016-04-09 Weight 167.2 lbs 2016-04-09 Temperature 97.0 degrees Fahrenheit 2016-04-09 Heart Rate 80 bpm 2016-04-09 Respiratory Rate 18 2016-04-09 BMI 30.58 kg/m2 2016-04-09 Blood pressure systolic 128 mmHg 2016-04-09 Blood pressure diastolic 78 mmHg 2016-04-09 MEDICATIONS Medication Instructions Dosage Frequency Start Date End Date Duration Status Isosorbide Mononitrate CR 30 MG Take 1 tablet by mouth once daily in the morning 90 Active Singulair 10 MG Take 1 tablet by mouth once a day 90 Active Zocor 20 MG 1 Tablet by Oral route 1 time per day Aug, Active Isosorbide Mononitrate 30 MG take 1 tablet (30 mg) by oral route once daily in the morning Sep, 90 Active Aspirin EC Low Dose 81 MG TAKE ONE TABLET BY MOUTH ONCE DAILY 120 Active Hydrocodone-Acetaminophen 5-325 MG Orally twice a day 1 tablet 12h Feb, 28 days Active Oxygen ... by inhalation route at bedtime 2L via nasal canula Active Ibuprofen 800 MG Orally Three times a day 1 tablet 8h 14 Mar, 2016Apr 30 day(s) Active Neurontin 100 MG Orally Once a day at bedtime 1 tablet Feb, 10 days Active Lisinopril 40 mg Orally Once a day 1 tablet 24h Nov, 90 days Active ProAir HFA 108 (90 Base) MCG/ACT Inhalation every 4 hrs 2 puffs as needed for cough or wheeze 4h Aug, 90 days Active RESULTS No Results PROCEDURES Procedure Date Ordered Result Body Site [facility] VISIT ESTABLISHED PATIENT Apr 09, 2016 IMMUNIZATIONS No Known Immunizations MEDICAL (GENERAL) [...] stent (Cari) 08/2013 Surgical History EGD-dilated stricture (Love) 09/2012 Surgical History cholecystectomy Surgical History hysterectomy Surgical History appendectomy Surgical History spine surgery-halo (neck and back surgery) 1993 Surgical History carpal tunnel release Surgical History rectocele/cystocele repair, pessary fitted (Fenech) 05/2013 Surgical History Suspicious lesion removal 2015 Hospitalization History [facility] acute gastoentereritis, dehydration 06/06 Hospitalization History Heart Cath 2013
--- OUTSIDE RECORDS SUMMARY | 2017-01-18 18:28 | XMS REPORT ---
Author FUENTES [facility] eClinicalWorks Address Unknown Phone Unavailable Care Team Providers Care Hand Spinner Name Role Phone FUENTES PATIÑO CP Unavailable Allergies, Adverse Reactions, Alerts Substance Reaction Event Type Dilantin Info Not Available Drug Allergy Demerol Info Not Available Drug Allergy Benadryl rash Drug Allergy Aleve Info Not Available Drug Allergy Problems Problem Type Condition Code Onset Dates Condition Status Assessment Atypical mole L81.9 Active Problem Atherosclerotic heart disease of [place] coronary artery without angina pectoris I25.10 Active Problem Low back pain, unspecified back pain laterality, with sciatica presence unspecified M54.5 Active Problem Acute pain due to injury G89.11 Active Assessment Breast cancer screening Z12.39 Active Assessment Hyperlipidemia, unspecified hyperlipidemia type E78.5 Active Problem Chronic obstructive pulmonary disease, unspecified COPD type J44.9 Active Assessment Cramp of both lower extremities R25.2 Active Medications Medication Code System Code Instructions Start Date End Date Status Dosage Isosorbide Mononitrate [facility] [address]-44 30 MG Oct 08, 2013 take 1 tablet (30 mg) by oral route once daily in the morning Etodolac [facility] [address]-80 200 MG Orally 3 times a day 1 capsule as needed ProAir HFA [facility] [address]-46 108 (90 Base) MCG/ACT Inhalation every 4 hrs September 08, 2015 2 puffs as needed for cough or wheeze Lisinopril [facility] [address]-26 40 mg Orally Once a day Dec 15, 2014 1 tablet Singulair [facility] [address]-90 10 mg Orally Once a day Dec 10, 2013 1 tablet Aspirin EC Low Dose [facility] 83944158436 81 MG TAKE ONE TABLET BY MOUTH ONCE DAILY Etodolac [facility] [address]-51 200 mg Orally 3 times a day as needed for hand pain August 01, 2015 1 tablet Metformin HCl [facility] 98558824444 500 MG TAKE ONE TABELT BY MOUTH EVERY MORNING FOR 1 WEEK, THEN INCREASE TO TAKE ONE TABLET BY MOUTH TWICE DAILY Hydrocodone-Acetaminophen [facility] [address]-47 5-325 MG Orally twice a day May 05, 2014 1 tablet Zocor [facility] [address]-92 20 MG August 30, 2013 1 Tablet by Oral route 1 time per day Procedures Procedure Coding System Code Date [facility] VISIT ESTABLISHED PATIENT CPT-4 G0467 September 18, 2015 Office Visit, Est Pt., Level 3 CPT-4 62591 September 18, 2015 LAB NOT BILLED BY [facility] CPT-4 NOBLL September 18, 2015 VENIPUNCT, ROUTINE* CPT-4 93486 September 18, 2015 Vital Signs Date/Time: September 18, 2015 Cardiac Monitoring Heart Rate 51 bpm Weight 160.9 lbs Height 62 in BMI 29.43 Index Blood Pressure Diastolic 96 mmHg Blood Pressure Systolic 146 mmHg Results No Known Results Summary Purpose eClinicalWorks Submission
--- OUTSIDE RECORDS SUMMARY | 2017-01-18 18:28 | XMS REPORT ---
Author Author FUENTES PATIÑO Organization [employer] Address Unknown Phone Unavailable Care Team Providers Care Assembling Inspector Name Role Phone FUENTES PATIÑO CP Unavailable Allergies No Known Allergies Problems Problem Type Condition Code Onset Dates Condition Status Problem Atherosclerotic heart disease of [place] coronary artery without angina pectoris I25.10 Active Problem Low back pain, unspecified back pain laterality, with sciatica presence unspecified M54.5 Active Problem Acute pain due to injury G89.11 Active Problem Chronic obstructive pulmonary disease, unspecified COPD type J44.9 Active Assessment Allergic rhinitis, unspecified allergic rhinitis type J30.9 Active Medications No Known Medications Procedures Procedure Coding System Code Date THER/PROPH/DIAG INJ, SC/IM CPT-4 86957 August 07, 2015 KENALOG 40 MG/ML (PER 10 MG) CPT-4 J3301 August 07, 2015 Results No Known Results Summary Purpose eClinicalWorks Submission
--- OUTSIDE RECORDS SUMMARY | 2017-01-18 18:28 | XMS REPORT ---
Author Author FUENTES PATIÑO [facility] Address [address] [place] [address] Care Team Providers Care Commercial Sewing Instructor Name Role Phone FUENTES PATIÑO Unavailable PROBLEMS Type Condition ICD9-CM Code INN53-AT Code Onset Dates Condition Status SNOMED Code Problem Acute pain due to injury G89.11 Active 854024047 Problem Atherosclerotic heart disease of [place] coronary artery without angina pectoris I25.10 Active 6523667145390 Problem Low back pain, unspecified back pain laterality, with sciatica presence unspecified M54.5 Active 530921578 Problem Chronic obstructive pulmonary disease, unspecified COPD type J44.9 Active 04281323 ALLERGIES Unknown Allergies SOCIAL HISTORY No smoking Hx information available PLAN OF CARE VITAL SIGNS MEDICATIONS Unknown Medications RESULTS No Results PROCEDURES No Known procedures IMMUNIZATIONS No Known Immunizations
--- OUTSIDE RECORDS SUMMARY | 2017-01-18 18:28 | XMS REPORT ---
Author Author FUENTES PATIÑO Organization [facility] Address [address] [place] [address] Care Team Providers Care Timber Poisoner Name Role Phone FUENTES PATIÑO Unavailable PROBLEMS Type Condition ICD9-CM Code VFP64-HX Code Onset Dates Condition Status SNOMED Code Problem Low back pain, unspecified back pain laterality, with sciatica presence unspecified M54.5 Active 831095708 Problem Acute bilateral low back pain with left-sided sciatica M54.42 Active 57959735 Problem Other chronic pain G89.29 Active 61977052 Problem Atherosclerotic heart disease of [place] coronary artery without angina pectoris I25.10 Active 2988075336307 Problem Chronic obstructive pulmonary disease, unspecified COPD type J44.9 Active 68458490 Problem Episodic cluster headache, not intractable G44.019 Active 486617000 Problem Acute pain due to injury G89.11 Active 872327849 ALLERGIES No Information SOCIAL HISTORY Never Assessed PLAN OF CARE VITAL SIGNS MEDICATIONS No Known Medications RESULTS No Results PROCEDURES No Known [...] release Surgical History rectocele/cystocele repair, pessary fitted ([facility]) 05/2013 Surgical History Suspicious lesion removal 2015 Hospitalization History [facility] acute gastoentereritis, dehydration 06/06 Hospitalization History Heart Cath 2014
--- OUTSIDE RECORDS SUMMARY | 2017-01-18 18:29 | XMS REPORT ---
Author Author FUENTES PATIÑO Organization [employer] Address Unknown Phone Unavailable Care Team Providers Care Television Repairman Name Role Phone FUENTES PATIÑO CP Unavailable Allergies No Known Allergies Problems Problem Type Condition Code Onset Dates Condition Status Problem Atherosclerotic heart disease of [place] coronary artery without angina pectoris I25.10 Active Problem Low back pain, unspecified back pain laterality, with sciatica presence unspecified M54.5 Active Problem Acute pain due to injury G89.11 Active Problem Chronic obstructive pulmonary disease, unspecified COPD type J44.9 Active Medications Medication Code System Code Instructions Start Date End Date Status Dosage Zocor [facility] [address]-31 20 MG August 30, 2013 1 Tablet by Oral route 1 time per day Results No Known Results Summary Purpose eClinicalWorks Submission
--- OUTSIDE RECORDS SUMMARY | 2017-01-18 18:29 | XMS REPORT ---
Author Author FUENTES PATIÑO Organization [employer] Address Unknown Phone Unavailable Care Team Providers Care Floor Winder Name Role Phone FUENTES PATIÑO CP Unavailable Allergies No Known Allergies Problems Problem Type Condition Code Onset Dates Condition Status Problem Atherosclerotic heart disease of [place] coronary artery without angina pectoris I25.10 Active [...] Start Date End Date Status Dosage Hydrocodone-Acetaminophen [facility] [address]-56 5-325 MG Orally twice a day May 05, 2014 1 tablet Results No Known Results Summary Purpose eClinicalWorks Submission
--- OUTSIDE RECORDS SUMMARY | 2017-01-18 18:29 | XMS REPORT ---
Author Author FUENTES PATIÑO Organization [employer] Address Unknown Phone Unavailable Care Team Providers Care Photonics Engineering Technologist Name Role Phone FUENTES PATIÑO CP Unavailable [...] leg 719.46 Active Problem Coronary atherosclerosis of [place] coronary artery 414.01 Active Problem Dehydration 276.51 Active Problem Unspecified breast screening V76.10 Active Problem Unspecified infective otitis externa 380.10 Active Problem Coronary atherosclerosis of unspecified type of vessel, [place] or graft 414.00 Active Medications Medication Code System Code Instructions Start Date End Date Status Dosage [facility] [address]-42 10 MG Orally Once a day Dec 10, 2013 1 tablet by Oral route 1 time per day Results No Known Results Summary Purpose eClinicalWorks Submission
--- OUTSIDE RECORDS SUMMARY | 2017-01-18 18:29 | XMS REPORT ---
Author Author FUENTES PATIÑO Organization [facility] Address [address] [place] [address] Care Team Providers Care Sales And Marketing Assistant Name Role Phone FUENTES PATIÑO Unavailable PROBLEMS Type Condition ICD9-CM Code UOF11-LK Code Onset Dates Condition Status SNOMED Code Problem Low back pain, unspecified back pain laterality, with sciatica presence unspecified M54.5 Active 445922036 Problem Acute bilateral low back pain with left-sided sciatica M54.42 Active 57835901 Problem Other chronic pain G89.29 Active 40208220 Problem Atherosclerotic heart disease of [place] coronary artery without angina pectoris I25.10 Active 6060163320369 Problem Chronic obstructive pulmonary disease, unspecified COPD type J44.9 Active 31655901 Problem Episodic cluster headache, not intractable G44.019 Active 888420969 Problem Acute pain due to injury G89.11 Active 450930278 ALLERGIES No Information SOCIAL HISTORY Never Assessed PLAN OF CARE VITAL SIGNS MEDICATIONS Medication Instructions Dosage Frequency Start Date End Date Duration Status Hydrocodone-Acetaminophen 5-325 MG Orally twice a day 1 tablet 12h 17 Mar, 2016 28 days Active RESULTS No Results [...]
--- OUTSIDE RECORDS SUMMARY | 2017-01-18 18:29 | XMS REPORT ---
Author Author FUENTES PATIÑO Organization [facility] Address [address] [place] [address] Care Team Providers Care Ophthalmic Asst Name Role Phone FUENTES PATIÑO Unavailable PROBLEMS Type Condition ICD9-CM Code NVT62-EP Code Onset Dates Condition Status SNOMED Code Problem Other chronic pain G89.29 Active 69379537 Problem Episodic cluster headache, not intractable G44.019 Active 184731206 Problem Low back pain, unspecified back pain laterality, with sciatica presence unspecified M54.5 Active 283628944 Problem Chronic obstructive pulmonary disease, unspecified COPD type J44.9 Active 76063340 Problem Acute pain due to injury G89.11 Active 509488055 Problem Atherosclerotic heart disease of [place] coronary artery without angina pectoris I25.10 Active 1422669434527 ALLERGIES Substance Reaction Event Type Date Status Dilantin Unknown Drug Allergy Jan, Active Demerol Unknown Drug Allergy Jan, Active Benadryl rash Drug Allergy Jan, Active Aleve Unknown Drug Allergy Jan, Active SOCIAL HISTORY No smoking Hx information available PLAN OF CARE Activity Details Follow Up 4 Weeks Reason:headache VITAL SIGNS Height 62 in 2016-02-22 Weight 168.1 lbs 2016-02-22 Temperature 97.9 degrees Fahrenheit 2016-02-22 Heart Rate 52 bpm 2016-02-22 Respiratory Rate 20 2016-02-22 Oximetry on room air:97 % 2016-02-22 BMI 30.74 kg/m2 2016-02-22 Blood pressure systolic 130 mmHg 2016-02-22 Blood pressure diastolic 90 mmHg 2016-02-22 MEDICATIONS Medication Instructions Dosage Frequency Start Date End Date Duration Status ProAir HFA 108 (90 Base) MCG/ACT Inhalation every 4 hrs 2 puffs as needed for cough or wheeze 4h 15 Aug, 2015 90 days Active Singulair 10 MG Take 1 tablet by mouth once a day 90 Active PredniSONE 10 mg Orally 3 tabs daily X 3 days, 2 tabs dailyX 2 days 1 tab for 1 day 4 tablet daily X 4 days. Jan, Feb, 10 days Active Hydrocodone-Acetaminophen 5-325 MG Orally twice a day 1 tablet 12h Jan, 28 days Active Zocor 20 MG 1 Tablet by Oral route 1 time per day Aug, Active Lisinopril 40 mg Orally Once a day 1 tablet 24h 22 Nov, 2014 90 days Active Isosorbide Mononitrate 30 MG take 1 tablet (30 mg) by oral route once daily in the morning Sep, 90 Active Etodolac 200 mg Orally 3 times a day as needed for hand pain 1 tablet Jul, Active Carbamazepine 100 MG Orally Once a day at bedtime 1 tablet Jan, 30 day(s) Active Aspirin EC Low Dose 81 MG TAKE ONE TABLET BY MOUTH ONCE DAILY 120 Active Oxygen ... by inhalation route at bedtime 2L via nasal canula Active RESULTS Name Result Date Reference Range CBC 2016-02-22 WBC 9.9 3.4-10.8 RBC 4.33 3.77-5.28 Hemoglobin 12.4 11.1-15.9 Hematocrit 39.2 34.0-46.6 MCV 91 79-97 MCH 28.6 26.6-33.0 MCHC 31.6 31.5-35.7 RDW 13.3 12.3-15.4 Platelets 294 150-379 Neutrophils 47 Lymphs 42 Monocytes 8 Eos 2 Basos 1 Immature Cells Neutrophils (Absolute) 4.7 1.4-7.0 Lymphs (Absolute) 4.2 0.7-3.1 Monocytes(Absolute) 0.7 0.1-0.9 Eos (Absolute) 0.2 0.0-0.4 Baso (Absolute) 0.1 0.0-0.2 Immature Granulocytes 0 Immature Grans (Abs) 0.0 0.0-0.1 NRBC Hematology Comments: CMP 2016-02-22 Glucose, Serum 84 65-99 BUN 11 8-27 Creatinine, Serum 0.81 0.57-1.00 eGFR If NonAfricn Am 75 >59 eGFR If Africn Am 86 >59 BUN/Creatinine Ratio 14 11-26 Sodium, Serum 141 134-144 Potassium, Serum 3.7 3.5-5.2 Chloride, Serum 101 96-106 Carbon Dioxide, Total 29 18-29 Calcium, Serum 9.5 8.7-10.3 Protein, Total, Serum 6.5 6.0-8.5 Albumin, Serum 4.6 3.6-4.8 Globulin, Total 1.9 1.5-4.5 A/G Ratio 2.4 1.1-2.5 Bilirubin, Total 0.9 0.0-1.2 Alkaline Phosphatase, S 60 39-117 AST (SGOT) 11 0-40 ALT (SGPT) 8 0-32 ESR/SED RATE (IN HOUSE) 2016-02-22 SED/ESR RATE 13 mm/hr Lot # [id number] Exp Date 04/23/2016 0 - 30 mm PROCEDURES Procedure Date Ordered Related Diagnosis Body Site MEASURE BLOOD OXYGEN LEVEL Feb 22, 2016 [facility] EST[facility] PAT[facility] Feb 22, 2016 RBC SED RATE, NONAUTOMATED Feb 22, 2016 VENIPUNCT, ROUTINE* Feb 22, 2016 Office Visit, Est Pt., Level 3 Feb 22, 2016 IMMUNIZATIONS No Known Immunizations
--- OUTSIDE RECORDS SUMMARY | 2017-01-18 18:29 | XMS REPORT ---
Author Author FUENTES PATIÑO Organization [employer] Address Unknown Phone Unavailable Care Team Providers Care Oil Rig Driller Name Role Phone FUENTES PATIÑO CP Unavailable Allergies No Known Allergies Problems Problem Type Condition Code Onset Dates Condition Status Problem Low back pain, unspecified back pain laterality, with sciatica presence unspecified M54.5 Active Problem Chronic obstructive pulmonary disease, unspecified COPD type J44.9 Active Problem Atherosclerotic heart disease of [place] coronary artery without angina pectoris I25.10 Active Medications Medication Code System Code Instructions Start Date End Date Status Dosage Hydrocodone-Acetaminophen [facility] [address]-33 5-325 MG May 05, 2014 1 tablet by Oral route 2 times per day for knee pain Results No Known Results Summary Purpose eClinicalWorks Submission
--- OUTSIDE RECORDS SUMMARY | 2017-01-18 18:29 | XMS REPORT ---
Author Author FUENTES PATIÑO Organization [employer] Address Unknown Phone Unavailable Care Team Providers Care Drilling Manager Name Role Phone FUENTES PATIÑO CP Unavailable Allergies No Known Allergies Problems Problem Type Condition Code Onset Dates Condition Status Problem Atherosclerotic heart disease of [place] coronary artery without angina pectoris I25.10 Active Problem Low back pain, unspecified back pain laterality, with sciatica presence unspecified M54.5 Active Problem Acute pain due to injury G89.11 Active Problem Chronic obstructive pulmonary disease, unspecified COPD type J44.9 Active Assessment Chronic obstructive pulmonary disease, unspecified COPD type J44.9 Active Medications Medication Code System Code Instructions Start Date End Date Status Dosage [place] [facility] [address]-78 10 mg Orally Once a day Dec 10, 2013 1 tablet Results No Known Results Summary Purpose eClinicalWorks Submission
--- OUTSIDE RECORDS SUMMARY | 2017-01-18 18:29 | XMS REPORT ---
Author Author FUENTES PATIÑO Organization [facility] Address [address] [place] [address] Care Team Providers Care Materials Inspector Name Role Phone FUENTES PATIÑO Unavailable PROBLEMS Type Condition ICD9-CM Code DHU13-EB Code Onset Dates Condition Status SNOMED Code Problem Low back pain, unspecified back pain laterality, with sciatica presence unspecified M54.5 Active 230952827 Problem Acute bilateral low back pain with left-sided sciatica M54.42 Active 68193901 Problem Other chronic pain G89.29 Active 87904720 Problem Atherosclerotic heart disease of [place] coronary artery without angina pectoris I25.10 Active 9476592946860 Problem Chronic obstructive pulmonary disease, unspecified COPD type J44.9 Active 04740988 Problem Episodic cluster headache, not intractable G44.019 Active 737447994 Problem Acute pain due to injury G89.11 Active 305096218 ALLERGIES No Information SOCIAL HISTORY Never Assessed PLAN OF CARE VITAL SIGNS MEDICATIONS Medication Instructions Dosage Frequency Start Date End Date Duration Status Mobic 15 MG Orally Once a day 1 tablet 24h Mar, 30 days Active RESULTS No Results PROCEDURES No [...]
--- OUTSIDE RECORDS SUMMARY | 2017-01-18 18:29 | XMS REPORT ---
Author Author FUENTES PATIÑO [facility] Address [address] [place] [address] Care Team Providers Care Tar Boiler Name Role Phone FUENTES PATIÑO Unavailable PROBLEMS Type Condition ICD9-CM Code [id number] Code Onset Dates Condition Status SNOMED Code Problem Low back pain, unspecified back pain laterality, with sciatica presence unspecified M54.5 Active 957198244 Problem Acute bilateral low back pain with left-sided sciatica M54.42 Active 75437108 Problem Other chronic pain G89.29 Active 51432082 Problem Atherosclerotic heart disease of [place] coronary artery without angina pectoris I25.10 Active 9755683876804 Problem Chronic obstructive pulmonary disease, unspecified COPD type J44.9 Active 21787841 Problem Episodic cluster headache, not intractable G44.019 Active 404022795 Problem Acute pain due to injury G89.11 Active [id number] ALLERGIES No Known Allergies SOCIAL HISTORY No smoking Hx information available PLAN OF CARE VITAL SIGNS MEDICATIONS No Known Medications RESULTS No Results PROCEDURES No Known procedures IMMUNIZATIONS No Known Immunizations
--- OUTSIDE RECORDS SUMMARY | 2017-01-18 18:29 | XMS REPORT ---
Author Author FUENTES PATIÑO [facility] Address [address] [place] [address] Care Team Providers Care Passenger Rate Clerk Name Role Phone FUENTES PATIÑO Unavailable PROBLEMS Type Condition ICD9-CM Code [id number] Code Onset Dates Condition Status SNOMED Code Problem Other chronic pain G89.29 Active 35119843 Problem Episodic cluster headache, not intractable G44.019 Active 812466774 Problem Low back pain, unspecified back pain laterality, with sciatica presence unspecified M54.5 Active 986196497 Problem Chronic obstructive pulmonary disease, unspecified COPD type J44.9 Active 06698722 Problem Acute pain due to injury G89.11 Active 252829376 Problem Atherosclerotic heart disease of [place] coronary artery without angina pectoris I25.10 Active [id number] ALLERGIES Unknown Allergies SOCIAL HISTORY No smoking Hx information available PLAN OF CARE VITAL SIGNS MEDICATIONS Unknown Medications RESULTS No Results PROCEDURES No Known procedures IMMUNIZATIONS No Known Immunizations
--- OUTSIDE RECORDS SUMMARY | 2017-01-18 18:29 | XMS REPORT ---
Author Author FUENTES PATIÑO Organization [employer] Address Unknown Phone Unavailable Care Team Providers Care Substation Designer Name Role Phone FUENTES PATIÑO CP Unavailable Allergies No Known Allergies Problems Problem Type Condition Code Onset Dates Condition Status Problem Polyuria [...] leg 719.46 Active Problem Coronary atherosclerosis of [place] coronary artery 414.01 Active Problem Dehydration 276.51 Active Problem Unspecified breast screening V76.10 Active Problem Unspecified infective otitis externa 380.10 Active Problem Coronary atherosclerosis of unspecified type of vessel, [place] or graft 414.00 Active Medications Medication Code System Code Instructions Start Date End Date Status Dosage Silvadene [facility] [id number] 1 % Externally Once a day Nov 23, 2014Nov 1 application to affected area Results No Known Results Summary Purpose [employer] Submission
--- OUTSIDE RECORDS SUMMARY | 2017-01-18 18:29 | XMS REPORT ---
Author Author ROSIE FISH Organization [facility] Address [address] [place] [address] Care Team Providers Care Churner Name Role Phone ROSIE FISH Unavailable PROBLEMS Type Condition ICD9-CM Code [id number] Code Onset Dates Condition Status SNOMED Code Problem Acute pain due to injury G89.11 Active 327141889 Problem Atherosclerotic heart disease of [place] coronary artery without angina pectoris I25.10 Active 1210435753502 Assessment Onychomycosis B35.1 Oct, Active 481356190 Assessment Ingrown nail L60.0 Oct, Active 661235664 Problem Low back pain, unspecified back pain laterality, with sciatica presence unspecified M54.5 Active 270649573 Problem Chronic obstructive pulmonary disease, unspecified COPD type J44.9 Active 99258422 ALLERGIES Substance Reaction Event Type Date Status Dilantin Unknown Drug Allergy Oct, Active Demerol Unknown Drug Allergy Oct, Active Benadryl rash Drug Allergy Oct, Active Aleve Unknown Drug Allergy Oct, Active SOCIAL HISTORY No smoking Hx information available PLAN OF CARE VITAL SIGNS Height 62 in 2015-11-02 Weight 165.7 lbs 2015-11-02 Heart Rate 66 bpm 2015-11-02 Respiratory Rate 20 2015-11-02 BMI 30.30 kg/m2 2015-11-02 Blood pressure systolic 136 mmHg 2015-11-02 Blood pressure diastolic 78 mmHg 2015-11-02 MEDICATIONS Medication Instructions Dosage Frequency Start Date End Date Duration Status Isosorbide Mononitrate 30 MG take 1 tablet (30 mg) by oral route once daily in the morning Sep, Active Aspirin EC Low Dose 81 MG TAKE ONE TABLET BY MOUTH ONCE DAILY 120 Active Singulair 10 mg Orally Once a day 1 tablet 24h Nov, 90 days Active Etodolac 200 MG Orally 3 times a day 1 capsule as needed 8h Active Zocor 20 MG 1 Tablet by Oral route 1 time per day Aug, Active Lisinopril 40 mg Orally Once a day 1 tablet 24h 22 Nov, 2014 90 days Active ProAir HFA 108 (90 Base) MCG/ACT Inhalation every 4 hrs 2 puffs as needed for cough or wheeze 4h 15 Aug, 2015 90 days Active Hydrocodone-Acetaminophen 5-325 MG Orally twice a day 1 tablet 12h Apr, 28 days Active RESULTS No Results PROCEDURES Procedure Date Ordered Related Diagnosis Body Site NAIL REMOVAL SINGLE (COMPLETE OR PARTIAL) 2015-11-02 N/A REMOVAL OF NAIL PLATE Nov 02, 2015 Office Visit, Est Pt., Level 2 Nov 02, 2015 ON LICENSE OF [facility] VISIT ESTABLISHED PATIENT Nov 02, 2015 IMMUNIZATIONS No Known Immunizations
--- OUTSIDE RECORDS SUMMARY | 2017-01-18 18:29 | XMS REPORT ---
Author Author FUENTES PATIÑO Organization [employer] Address Unknown Phone Unavailable Care Team Providers Care Slide Fastener Repairer Name Role Phone FUENTES PATIÑO CP Unavailable Allergies No Known Allergies Problems Problem Type Condition Code Onset Dates Condition Status Problem Low back pain, unspecified back pain laterality, with sciatica presence unspecified M54.5 Active Problem Chronic obstructive pulmonary disease, unspecified COPD type J44.9 Active Problem Atherosclerotic heart disease of [place] coronary artery without angina pectoris I25.10 Active Medications Medication Code System Code Instructions Start Date End Date Status Dosage Hydrocodone-Acetaminophen [facility] [address]-17 5-325 MG May 05, 2014 1 tablet by Oral route 2 times per day for knee pain Results No Known Results Summary Purpose [employer] Submission
--- OUTSIDE RECORDS SUMMARY | 2017-01-18 18:30 | XMS REPORT ---
Author Author FUENTES PATIÑO Organization [employer] Address Unknown Phone Unavailable Care Team Providers Care Global Implementation Manager Name Role Phone FUENTES PATIÑO CP Unavailable Allergies No Known Allergies Problems Problem Type Condition Code Onset Dates Condition Status Problem Atherosclerotic heart disease of [place] coronary artery without angina pectoris I25.10 Active [...] Start Date End Date Status Dosage Hydrocodone-Acetaminophen [facility] [address]-72 5-325 MG Orally twice a day May 05, 2014 1 tablet Results No Known Results Summary Purpose [employer] Submission
[2017-01-18] MEDS ORDERED: IOHEXOL 350 MG/ML 100 ML (OMNIPAQUE 350) VIAL IV ONE (18:45)
[2017-01-18] MEDS ORDERED: NS 100 ML (IVPB) BAG IV ONE (18:45)
[2017-01-18 18:50] LABS: BASOPHILS # (AUTO) 0.1 10^3/uL (0.0-0.1); BASOPHILS % (AUTO) 1 % (0-10); EOSINOPHILS # (AUTO) 0.2 10^3/uL (0.0-0.3); EOSINOPHILS % (AUTO) 3 % (0-10); LYMPHOCYTES # (AUTO) 2.7 X 10^3 (1.0-4.0); LYMPHOCYTES % (AUTO) 32 % (12-44); MEAN CORPUSCULAR HEMOGLOBIN 29 PG (25-34); MEAN CORPUSCULAR HGB CONC 33 G/DL (32-36); MEAN CORPUSCULAR VOLUME 88 FL (80-99); MEAN PLATELET VOLUME 10.3 FL (7.4-10.4); MONOCYTES # (AUTO) 0.7 X 10^3 (0.0-1.0); MONOCYTES % (AUTO) 9 % (0-12); NEUTROPHILS # (AUTO) 4.8 X 10^3 (1.8-7.8); NEUTROPHILS % (AUTO) 56 % (42-75); PLATELET COUNT 243 10^3/uL (130-400); RED BLOOD COUNT 4.64 10^6/uL (4.35-5.85); RED CELL DISTRIBUTION WIDTH 12.8 % (10.0-14.5); WHITE BLOOD COUNT 8.5 10^3/uL (4.3-11.0)
[2017-01-18 18:51] LABS: BILIRUBIN,URINE NEGATIVE (NEGATIVE); KETONES,URINE NEGATIVE (NEGATIVE); LEUKOCYTE ESTERASE ,URINE NEGATIVE (NEGATIVE); NITRITE,URINE NEGATIVE (NEGATIVE); PH,URINE 6.5 (5-9); PROTEIN,URINE 1+ (NEGATIVE); UROBILINOGEN,URINE NORMAL (NORMAL)
[2017-01-18 19:00] LABS: INR 0.9 (0.8-1.4); PROTHROMBIN TIME PATIENT 12.4 SEC (12.2-14.7)
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
[2017-01-18 19:11] LABS: ALANINE AMINOTRANSFERASE 13 U/L (0-55); ALBUMIN 4.2 GM/DL (3.2-4.5); AMYLASE 49 U/L (25-125); ANION GAP 10 MMOL/L (5-14); ASPARTATE AMINO TRANSFERASE 12 U/L (5-34); BILIRUBIN,TOTAL 1.1 MG/DL (0.1-1.0); BLOOD UREA NITROGEN 11 MG/DL (7-18); BUN/CREATININE RATIO 15; CALCIUM 9.5 MG/DL (8.5-10.1); CARBON DIOXIDE 26 MMOL/L (21-32); CHLORIDE 104 MMOL/L (98-107); CREATININE SERUM 0.75 MG/DL (0.60-1.30); GFR ESTIMATED > 60; GLUCOSE 101 MG/DL (70-105); LIPASE 35 U/L (8-78); POTASSIUM 3.5 MMOL/L (3.6-5.0); SODIUM 140 MMOL/L (135-145); TOTAL PROTEIN 6.8 GM/DL (6.4-8.2)
[2017-01-18 19:17] LABS: TROPONIN I < 0.30 NG/ML (<0.30)
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
[2017-01-18] MEDS ORDERED: CYCL10TA9 PO (20:14)
[2017-01-18] MEDS ORDERED: RX-CYCLOBENZAPRINE 10 MG (FLEXERIL) TAB PPK#3 PO STA (20:14)
[2017-01-18 20:32] VITALS: BP 157/112
== END 2017-01-18 20:34 | disposition home or self-care (01) ==
LOC: EDUNIT# 18:20 → ER 18:21
DX: S16.1XXA Strain of muscle, fascia and tendon at neck level, initial encounter (principal); S39.012A Strain of muscle, fascia and tendon of lower back, initial encounter; S20.212A Contusion of left front wall of thorax, initial encounter; M54.2 Cervicalgia; M54.5 Low back pain; G89.29 Other chronic pain; J44.9 Chronic obstructive pulmonary disease, unspecified; I25.10 Atherosclerotic heart disease of native coronary artery without angina pectoris; E78.00 Pure hypercholesterolemia, unspecified; I10 Essential (primary) hypertension; K21.9 Gastro-esophageal reflux disease without esophagitis; M19.90 Unspecified osteoarthritis, unspecified site; E11.9 Type 2 diabetes mellitus without complications; Z79.82 Long term (current) use of aspirin; Z98.1 Arthrodesis status; Z90.49 Acquired absence of other specified parts of digestive tract; Z95.5 Presence of coronary angioplasty implant and graft; V49.40XA Driver injured in collision with unspecified motor vehicles in traffic accident, initial encounter
CPT/HCPCS: 36415; 70450; 71010; 71260; 72125; 72128; 72131; 72170; 74177; 80053; 81000; 82150; 83690; 84484; 85025; 85610; 85730; 93005; 93041

== ENCOUNTER → 2017-03-05 | Outpatient (CLI) | payer MEDICARE ==
[~2017-03-05] MED LIST changes: +CYCL10TA9 PO
== END ==
LOC: CARD 08:34
PROVIDERS: ATTEND Internal Medicine Cardiovascular Disease
DX: I25.10 Atherosclerotic heart disease of native coronary artery without angina pectoris (principal); R07.9 Chest pain, unspecified; I10 Essential (primary) hypertension; E78.2 Mixed hyperlipidemia
CPT/HCPCS: 93306

== ENCOUNTER → 2017-03-12 | Outpatient (CLI) | payer MEDICARE ==
[~2017-03-12] VITALS: Ht 157.5 cm; Wt 77.6 kg
[~2017-03-12] MED LIST changes: +CATHETER FLUSH 10 ML SYR IV PRN; +REGADENOSON 0.4 MG/5 ML SYR (LEXISCAN) IV ONE
[2017-03-12 09:06] VITALS: BP 167/104
--- NOTE | 2017-03-12 13:31 | STRESS TEST ---
DATE OF SERVICE: 03/12/2017 LEXISCAN MYOVIEW STRESS TEST REPORT REFERRING PHYSICIAN: [facility]. Baseline heart rate is 54, baseline blood pressure 175/100. Baseline EKG is sinus rhythm with no ischemic changes. In summary, the patient received 10.37 mCi of technetium-99 Myoview and the resting images were obtained. Then, the patient received 0.4 mg of Lexiscan followed by 32.4 mCi of technetium-99 Myoview. Throughout the test, there were no EKG changes. The resting and stress images were reviewed and compared in the short axis, horizontal long axis, and vertical long axis views. Review of the images showed breast attenuation with typical female pattern. No significant ischemia or infarction was seen. SSS is 2, SDS 2, TID value 0.99. On the gated images, the left ventricle appeared to be normal size with normal contractility. Calculated ejection fraction is 70%. CONCLUSION: 1. The patient tolerated Lexiscan well. 2. Typical female pattern with no significant ischemia or infarction on SPECT images. 3. Normal left ventricular size with normal contractility. Calculated ejection fraction is 70%. Job ID: [id number] DocumentID: [id number] Dictated Date: 03/12/2017 10:59:57 Customer Advocacy Manager Date: 03/12/2017 11:51:52 Dictated By: EFREM VALENTIN MD
== END ==
LOC: CARD 07:32
PROVIDERS: ATTEND Internal Medicine Cardiovascular Disease
DX: I25.10 Atherosclerotic heart disease of native coronary artery without angina pectoris (principal); R07.9 Chest pain, unspecified; I10 Essential (primary) hypertension; E78.2 Mixed hyperlipidemia
CPT/HCPCS: 78452; 93017

== ENCOUNTER → 2017-04-25 | Outpatient (CLI) | payer MEDICARE ==
[~2017-04-25] MED LIST changes: -CATHETER FLUSH 10 ML SYR IV PRN; -REGADENOSON 0.4 MG/5 ML SYR (LEXISCAN) IV ONE
[2017-04-25 09:33] LABS: ALANINE AMINOTRANSFERASE 11 U/L (0-55); ALBUMIN 4.3 GM/DL (3.2-4.5); ALKALINE PHOSPHATASE 53 U/L (40-136); BILIRUBIN,TOTAL 0.8 MG/DL (0.1-1.0); BUN/CREATININE RATIO 18; CALCIUM 9.4 MG/DL (8.5-10.1); CARBON DIOXIDE 26 MMOL/L (21-32); CHLORIDE 105 MMOL/L (98-107); CHOLESTEROL 185 MG/DL (< 200); CREATININE SERUM 0.74 MG/DL (0.60-1.30); GFR ESTIMATED > 60; GLUCOSE 107 MG/DL (70-105); HDL CHOLESTEROL 46 MG/DL (40-60); POTASSIUM 4.1 MMOL/L (3.6-5.0); SODIUM 142 MMOL/L (135-145); TOTAL PROTEIN 6.4 GM/DL (6.4-8.2); TRIGLYCERIDES 165 MG/DL (<150); VLDL CHOLESTEROL 33 MG/DL (5-40)
== END ==
LOC: LAB 08:42
PROVIDERS: ATTEND Physician Assistant
DX: I10 Essential (primary) hypertension (principal); I25.10 Atherosclerotic heart disease of native coronary artery without angina pectoris; E78.2 Mixed hyperlipidemia; I65.29 Occlusion and stenosis of unspecified carotid artery
CPT/HCPCS: 36415; 80053; 80061

== ENCOUNTER → 2017-05-21 | Outpatient (CLI) | payer MEDICARE ==
--- NOTE | 2017-05-21 08:43 | Diagnostic Imaging Report ---
Indication: Routine screening. Comparison is made with prior study from 09/25/2015 and 08/09/2014. Findings: Moderate parenchymal density is identified bilaterally. There is parenchymal heterogeneity and increased density, limiting the sensitivity of mammography. The parenchymal pattern is stable however. There are benign calcifications present. No dominant mass or malignant-appearing micro-ulcerations are seen. Axillae are unremarkable. Impression: BI-RADS category 2. No mammographic features suspicious for malignancy are identified. ACR BI-RADS Category 2: Benign findings. Result letter will be mailed to the patient. Note: At least 10% of breast cancer is not imaged by mammography. Dictated by: Dictated on workstation # [id number]
== END ==
LOC: RAD 07:53
PROVIDERS: ATTEND Nurse Practitioner Community Health
DX: Z12.31 Encounter for screening mammogram for malignant neoplasm of breast (principal)
CPT/HCPCS: 77067

== ENCOUNTER 2017-08-25 05:41 | Outpatient (CLI) | payer MEDICARE ==
[~2017-08-25] VITALS: Ht 157.5 cm; Wt 77.6 kg
[2017-08-25] MEDS ORDERED: ASPI-999 PO (10:29)
[2017-08-25] MEDS ORDERED: LORA10TA7 PO (10:31)
[2017-08-25] MEDS ORDERED: CITA10TA7 PO (10:31)
[2017-08-25] MEDS ORDERED: MELO15TA39 PO (10:31)
== END 2017-08-25 10:33 ==
LOC: PREOP 05:41
PROVIDERS: ATTEND Surgery
DX: Z01.818 Encounter for other preprocedural examination (principal)

== ENCOUNTER 2017-09-01 10:42 | Day surgery (SDC) | payer MEDICARE ==
[~2017-09-01] VITALS: Ht 157.5 cm; Wt 77.6 kg
[~2017-09-01 10:42] MED LIST changes: +ASPI-999 PO; +CITA10TA7 PO; +MELO15TA39 PO
[2017-09-01] MEDS ORDERED: NS IV 500 ML 500 ML IV PRN (11:03)
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
--- NOTE | 2017-09-01 11:10 | Conscious Sedation/ASA ---
Conscious Sedation Pre-Proced Time Reviewed: 11:10 ASA Class: 2 Airway Mallampati Classification: (chitimacha appropriate class) I. II. III, IV Lungs Heart ASA score ASA 1: a normal healthy patient ASA 2: a patient with a mild systemic disease (mid diabetes, controlled hypertension, obesity ASA 3: a patient with a severe systemic disease that limits activity (angina , COPD, prior Myocardial infarction) ASA 4: a patient with an incapacitating disease that is a constant threat to life (CHF, renal failure) ASA 5: a moribund patient not expected to survive 24 hrs. (ruptured aneurysm) ASA 6: a declared brain patient whose organs are being harvested. For emergent operations, add the letter E after the classification Grade 1 Sedation Plan: Discussed options with patient/fam Note The patient is an appropriate candidate to undergo the planned procedure, sedation, and anesthesia. The patient immediately re-assessed prior to indication. NICOLA MEJÍA MD Sep 01, 2017 11:10 am
[2017-09-01] MEDS ORDERED: NS IV 500 ML 500 ML ONE (11:23)
[2017-09-01 11:45] VITALS: BP 137/77
[2017-09-01] MEDS ORDERED: MIDAZOLAM 2 MG/2 ML (VERSED) VIAL ONE ×4 (11:51)
[2017-09-01] MEDS ORDERED: fentaNYL INJECTION 100 MCG/2 ML AMP ONE (11:51)
[2017-09-01] MEDS: MIDAZOLAM 2 MG/2 ML (VERSED) VIAL IVP PRN ×2 (12:46→12:51)
[2017-09-01] MEDS: fentaNYL INJECTION 100 MCG/2 ML AMP IVP PRN ×2 (12:48→12:53)
--- NOTE | 2017-09-01 13:11 | Endo Procedure Record ---
Endo Procedure Report Date of Procedure Last Colonoscopy: No Sep 01, 2017 Surgeon (s) NICOLA MEJÍA MD Post Procedure/Op Diagnosis Sigmoid diverticulosis. Poor bowel prep Procedure Performed Colonoscopy to cecum Description of Procedure Anesthesia Type: Conscious Sedation Specimen(s) collected/removed None Description of the Procedure Indication for the procedure: This lady came in for colonoscopy to investigate positive Cologard test. Informed consent was obtained after reviewing the procedure in detail. Description of procedure: She was placed in left lateral this position and her vital signs were monitored. Conscious sedation was achieved using Versed and fentanyl. Digital rectal examination was unremarkable. The colonoscope was then introduced in the rectum and advanced all the way up to the cecum The quality of bowel preparation was rather poor. However, I was able to irrigate the mucosa, suctioning the liquid fecal material and completed the examination. Scope was then withdrawn slowly and the mucosa examined in a systematic fashion. Finding: Sigmoid diverticulosis No polyps were found. She tolerated the procedure well and was taken back to the nursing area in a stable condition. Impression: Positive cologard test. No polyps. Copy Copies To 1: ROBB CURTIS MD,NICOLA Samuel MD Sep 01, 2017 1:10 pm
--- NOTE | 2017-09-01 13:13 | Discharge Inst-Simple/Standard ---
Discharge Inst-Standard Discharge Medications New, Converted or Re-Newed RX: Other Patient Instructions/Follow Up Plan of Care/Instructions/FU: Repeat colonoscopy in 5 Activity as Tolerated: Yes Discharge Diet: No Restrictions NICOLA MEJÍA MD Sep 01, 2017 1:13 pm
[2017-09-01 13:35] VITALS: BP 163/72
[2017-09-01 14:05] VITALS: BP 157/75
[2017-09-01 14:35] VITALS: BP 157/75
== END 2017-09-01 14:35 | disposition home or self-care (01) ==
LOC: ENDO 10:42
PROVIDERS: ATTEND Surgery
DX: R19.5 Other fecal abnormalities (principal); K57.30 Diverticulosis of large intestine without perforation or abscess without bleeding; I25.10 Atherosclerotic heart disease of native coronary artery without angina pectoris; I10 Essential (primary) hypertension; E11.9 Type 2 diabetes mellitus without complications; J44.9 Chronic obstructive pulmonary disease, unspecified; J45.909 Unspecified asthma, uncomplicated; Z79.82 Long term (current) use of aspirin; Z79.899 Other long term (current) drug therapy

== ENCOUNTER → 2017-12-18 | Outpatient (CLI) | payer MEDICARE ==
--- NOTE | 2017-12-18 08:17 | Diagnostic Imaging Report ---
PROCEDURE: US Thyroid. TECHNIQUE: Multiple real-time grayscale images were obtained of the thyroid in various projections. INDICATION: Thyroid enlargement. FINDINGS: Right lobe of the thyroid measures 3.8 x 1.6 x 1.6 cm and left lobe measures 3.1 x 1.3 x 1.7 cm. Both lobes contain hypoechoic nodules, both less than 1 cm in size. Nodule on the right is in the lower pole measuring 6 mm x 7 mm. Nodule on the left is in the midportion measuring 5 mm x 6 mm. No dominant thyroid mass is detected. IMPRESSION: Bilateral subcentimeter thyroid nodules. No dominant thyroid mass is detected. Dictated by: Dictated on workstation # [id number]
== END ==
LOC: RAD 07:13
PROVIDERS: ATTEND Internal Medicine Cardiovascular Disease
DX: E04.2 Nontoxic multinodular goiter (principal)
CPT/HCPCS: 76536

== ENCOUNTER → 2018-05-12 | Outpatient (CLI) | payer MEDICARE, OTHER ==
--- NOTE | 2018-05-12 11:10 | Diagnostic Imaging Report ---
INDICATION: Postmenopausal screening for osteoporosis. COMPARISON: None FINDINGS: AP Spine L1-L4: [BMD (g/cm2): 1.050] [T-Score: -1.2] [Z-Score: 0.2] [BMD Previous: 1.154] [BMD % Change: -9.0] LT Hip Neck: [BMD (g/cm2): 0.782] [T-Score: -1.8] [Z-Score: -0.3] LT Hip Total: [BMD (g/cm2):0.875] [T-Score:-1.1] [Z-Score: 0.3] [BMD Previous: N/A] [BMD % Change: N/A] RT Hip Neck: [BMD (g/cm2):0.749] [T-Score:-2.1] [Z-Score:-0.5] RT Hip Total: [BMD (g/cm2):0.857] [T-score:-1.2] [Z-Score:0.1] [BMD Previous:N/A] [BMD % Change:N/A] *Indicates significant change from prior examination based on 95% confidence level. World Health Organization criteria for BMD interpretation classify patients as Normal (T-score at or above -1.0), Osteopenic (T-score between -1.0 and -2.5) or Osteoporotic (T-score at or below -2.5). LIMITATIONS AND MODIFICATION: None. FRACTURE RISK (FRAX SCORE): The ten year probability of (%): Major Osteoporotic Fracture: [12.2] Hip Fracture: [2.5] IMPRESSION: 1. Osteopenia (Low bone mass). 2. Baseline examination. 3. See below National Osteoporosis Foundation guidelines on when to potentially initiate pharmacologic therapy. Based on the National Osteoporosis Foundation Guidelines, pharmacologic treatment should be initiated in any of the following, unless clinical conditions suggest otherwise: * Any patient with prior fragility fracture of the hip or vertebrae. A spine fracture indicates 5X risk for subsequent spine fracture and 2X risk for subsequent hip fracture. * Osteoporosis (T-score <-2.5). * Postmenopausal women and men age 50 and older with low bone mass/osteopenia (T-score between -1.0 and -2.5) by DXA and 10-year major osteoporotic fracture greater than 20% or a 10-year probability of hip fracture greater than 3%. These fracture risks are supplied above in the FRAX score, if applicable. * Clinician judgement and/or patient preferences may indicate treatment for people with 10-year fracture probabilities above or below these levels. Dictated by: Dictated on workstation # [id number]
== END ==
LOC: RAD 08:48
PROVIDERS: ATTEND Nurse Practitioner Community Health
DX: M85.80 Other specified disorders of bone density and structure, unspecified site (principal); M81.0 Age-related osteoporosis without current pathological fracture; Z78.0 Asymptomatic menopausal state
CPT/HCPCS: 77080

== ENCOUNTER → 2018-11-25 | Outpatient (CLI) | payer MEDICARE ==
[2018-11-25 12:29] LABS: ALANINE AMINOTRANSFERASE 11 U/L (0-55); ALBUMIN 4.3 GM/DL (3.2-4.5); ALKALINE PHOSPHATASE 71 U/L (40-136); BILIRUBIN,TOTAL 0.9 MG/DL (0.1-1.0); BUN/CREATININE RATIO 16; CALCIUM 9.5 MG/DL (8.5-10.1); CARBON DIOXIDE 27 MMOL/L (21-32); CHLORIDE 107 MMOL/L (98-107); CHOLESTEROL 171 MG/DL (< 200); CREATININE SERUM 0.83 MG/DL (0.60-1.30); GFR ESTIMATED > 60; GLUCOSE 90 MG/DL (70-105); HDL CHOLESTEROL 42 MG/DL (40-60); POTASSIUM 3.6 MMOL/L (3.6-5.0); SODIUM 144 MMOL/L (135-145); TOTAL PROTEIN 6.7 GM/DL (6.4-8.2); TRIGLYCERIDES 143 MG/DL (<150); VLDL CHOLESTEROL 29 MG/DL (5-40)
== END ==
LOC: CARD 11:34
PROVIDERS: ATTEND Physician Assistant
DX: I10 Essential (primary) hypertension (principal); I34.0 Nonrheumatic mitral (valve) insufficiency; I25.10 Atherosclerotic heart disease of native coronary artery without angina pectoris; I65.29 Occlusion and stenosis of unspecified carotid artery
CPT/HCPCS: 36415; 80053; 80061; 93306

== ENCOUNTER → 2019-02-08 | Outpatient (CLI) | payer MEDICARE ==
[~2019-02-08] VITALS: Ht 157 cm; Wt 74.0 kg
[~2019-02-08] MED LIST changes: +CATHETER FLUSH 10 ML SYR IV PRN; +REGADENOSON 0.4 MG/5 ML SYR (LEXISCAN) IV ONE
[2019-02-08 09:37] VITALS: BP 159/86
--- NOTE | 2019-02-08 12:17 | STRESS TEST ---
DATE OF SERVICE: 02/08/2019 LEXISCAN MYOVIEW STRESS TEST REFERRING PHYSICIAN: [facility]. Baseline heart rate is 59, baseline blood pressure 160/90. Baseline EKG is sinus rhythm with no ischemic changes. In summary, the patient was injected with 10.04 mCi of technetium-99 Myoview and the resting images were obtained. Then, the patient received 0.4 mg of Lexiscan followed by 29.2 mCi of technetium-99 Myoview. Throughout the test, there were no EKG changes. The resting and stress images were reviewed and compared in the short axis, horizontal long axis, and vertical long axis views. Review of the images showed breast attenuation with typical female pattern. No significant ischemia or infarction was seen. SSS is 3, SDS 3, there is transient ischemic dilatation with TID value 1.24. On the gated images, the left ventricle appeared to be in normal size with normal contractility. Calculated ejection fraction is 85%. CONCLUSION: 1. The patient tolerated Lexiscan well. 2. Breast attenuation with typical female pattern. No significant ischemia or infarction on SPECT images. 3. Transient ischemic dilatation with TID value of 1.24. 4. Normal left ventricular size with normal contractility. Calculated ejection fraction is 85%. Job ID: [id number] DocumentID: [id number] Dictated Date: 02/08/2019 11:53:46 Geography Faculty Member Date: 02/08/2019 12:16:47 Dictated By: EFREM VALENTIN MD
== END ==
LOC: CARD 07:15
PROVIDERS: ATTEND Physician Assistant
DX: I25.10 Atherosclerotic heart disease of native coronary artery without angina pectoris (principal); I65.29 Occlusion and stenosis of unspecified carotid artery; R07.9 Chest pain, unspecified; R60.9 Edema, unspecified; I10 Essential (primary) hypertension
CPT/HCPCS: 78452; 93017

== ENCOUNTER 2019-03-03 05:58 | Day surgery (SDC) | payer MEDICARE ==
[2019-03-03] VITALS (11 sets, daily range): BP systolic 115–185; BP diastolic 68–94
[~2019-03-03] VITALS: Ht 157 cm; Wt 74.0 kg
[~2019-03-03 05:58] MED LIST changes: -CATHETER FLUSH 10 ML SYR IV PRN; -REGADENOSON 0.4 MG/5 ML SYR (LEXISCAN) IV ONE; -TRAM50TA2 PO
[2019-03-03] MEDS ORDERED: HEParin 1000 UNIT/ML (10ML VIAL) FOR BOLUS ONE (06:44)
[2019-03-03] MEDS ORDERED: NS IV 1000 ML 3,000 ML ONE (06:44)
[2019-03-03] MEDS ORDERED: LIDOCAINE 1% INJ 20 ML 20 ML VIAL ONE (06:44)
[2019-03-03] MEDS ORDERED: NS IV 1000 ML 1,000 ML IV SCH ×2 (06:45→08:48)
[2019-03-03 07:12] LABS: HEMOGLOBIN 14.1 G/DL (11.5-16.0); RED CELL DISTRIBUTION WIDTH 13.1 % (10.0-14.5)
[2019-03-03 07:13] LABS: BILIRUBIN,URINE NEGATIVE (NEGATIVE); CLARITY,URINE CLEAR; COLOR,URINE YELLOW; GLUCOSE, URINE (UA) NEGATIVE (NEGATIVE); KETONES,URINE NEGATIVE (NEGATIVE); LEUKOCYTE ESTERASE ,URINE NEGATIVE (NEGATIVE); NITRITE,URINE NEGATIVE (NEGATIVE); PROTEIN,URINE NEGATIVE (NEGATIVE)
[2019-03-03 07:24] LABS: BACTERIA,URINE TRACE /HPF; SQUAMOUS EPITHELIAL CELL,UR 25-50 /HPF
[2019-03-03] MEDS ORDERED: MONT10TA24 PO (07:30)
[2019-03-03] MEDS ORDERED: AMLO10TA7 PO (07:30)
[2019-03-03] MEDS ORDERED: PANT40TA3 PO (07:30)
[2019-03-03] MEDS ORDERED: ESCI20TA PO (07:30)
[2019-03-03] MEDS ORDERED: ATOR20TA49 PO (07:30)
[2019-03-03] MEDS ORDERED: RANO500T3 PO (07:30)
[2019-03-03] MEDS ORDERED: BUDE10.2 IH (07:32)
[2019-03-03] MEDS ORDERED: RT-ALBUINH IH (07:32)
[2019-03-03 07:33] LABS: ALANINE AMINOTRANSFERASE 12 U/L (0-55); ALBUMIN 4.7 GM/DL (3.2-4.5); ALKALINE PHOSPHATASE 75 U/L (40-136); BILIRUBIN,TOTAL 1.1 MG/DL (0.1-1.0); BUN/CREATININE RATIO 15; CALCIUM 9.5 MG/DL (8.5-10.1); CARBON DIOXIDE 26 MMOL/L (21-32); CHLORIDE 105 MMOL/L (98-107); CHOLESTEROL 208 MG/DL (< 200); CREATININE SERUM 0.81 MG/DL (0.60-1.30); GFR ESTIMATED > 60; GLUCOSE 104 MG/DL (70-105); HDL CHOLESTEROL 51 MG/DL (40-60); POTASSIUM 3.8 MMOL/L (3.6-5.0); SODIUM 143 MMOL/L (135-145); TOTAL PROTEIN 7.2 GM/DL (6.4-8.2); TRIGLYCERIDES 184 MG/DL (<150); VLDL CHOLESTEROL 37 MG/DL (5-40)
[2019-03-03] MEDS ORDERED: fentaNYL INJECTION 100 MCG/2 ML AMP ONE (07:35)
[2019-03-03] MEDS ORDERED: MIDAZOLAM 5 MG/5 ML (VERSED) VIAL ONE (07:35)
[2019-03-03 07:38] LABS: PROTHROMBIN TIME PATIENT 13.3 SEC (12.2-14.7)
[2019-03-03] MEDS ORDERED: ACET-2469 PO (07:56)
[2019-03-03] MEDS ORDERED: NITR12SP5 TL (07:56)
[2019-03-03] MEDS ORDERED: CHOL10007 PO (07:56)
[2019-03-03] MEDS ORDERED: IBUP-1773 PO (07:56)
[2019-03-03] MEDS ORDERED: ACET325T38 PO (07:59)
--- NOTE | 2019-03-03 08:16 | Diagnostic Imaging Report ---
CHEST 1 VIEW, AP/PA ONLY Indication: Chest pain Comparison: 01/18/2017 Findings: Low lung volumes. Stable left basilar patchy opacities likely due to subsegmental atelectasis. No consolidation in the visualized lungs. Posterior lower lobes are poorly evaluated by portable radiography. Stable cardiomegaly. Mediastinal contours are otherwise normal. No pleural effusion or pneumothorax. Impression: 1. No acute cardiopulmonary process by portable radiography. Dictated by: Dictated on workstation # [id number]
--- NOTE | 2019-03-03 08:48 | Cardiac Procedure Note-CS/ASA ---
Pre-Procedure Note Pre-Op Procedure Note H&P Reviewed The H&P was reviewed, patient examined and no changes noted. Date H&P Reviewed: Mar 03, 2019 Time H&P Reviewed: 08:47 Conscious Sedation Pre-Proced Time 08:47 ASA Score 3 For ASA 3 and 4: Consider anesthesia and medical clearance. Also, for patients with a history of failed moderate sedation consider anesthesia. Airway Lungs Heart ASA score ASA 1: a normal healthy patient ASA 2: a patient with a mild systemic disease (mid diabetes, controlled hypertension, obesity x ASA 3: a patient with a severe systemic disease that limits activity (angina, COPD, prior Myocardial infarction) ASA 4: a patient with an incapacitating disease that is a constant threat to life (CHF, renal failure) ASA 5: a moribund patient not expected to survive 24 hrs. (ruptured aneurysm) ASA 6: a declared brain- patient whose organs are being harvested. For emergent operations, add the letter E after the classification Mallampati Classification Grade 3 Sedation Plan Analgesia, Amnesia, Plan communicated to team members, Discussed options with patient/fam, Discussed risks with patient/fam The patient is an appropriate candidate to undergo the planned procedure, sedation, and anesthesia. The patient immediately re-assessed prior to indication. EFREM VALENTIN MD Mar 03, 2019 08:48
--- NOTE | 2019-03-03 08:51 | Discharge Inst-Post CATH ---
Discharge Inst-CATH/EP Problems Reviewed?: Yes Post Cardiac Cath/EP D/C Inst Follow Up/Plan Appointment with Dr. VALENTIN's office in 4 weeks <b>CARDIAC CATH/EP PROCEDURE DISCHARGE INSTRUCTIONS</b> ACTIVITY * Go Home directly and rest. * Limit activity of the leg (or wrist if it was used) for 7 days including aerobics, swimming, jogging, bicycling, etc. * Restrict stair-climbing for 7 days if possible, if not, climb up with your non-cath leg, then bring together on the same step. * Avoid lifting, pushing, pulling or excessive movement of the affected extremity for 7 days. * Customary sexual activity may be resumed after 2 days-use caution not to use a position that strains or causes pain to the affected extremity. * No driving for 24 hours. * NO SMOKING. * Avoid straining for bowel movements for 7 days. * Gentle walking on level ground is allowed. * Returning to work will depend on the type of procedure and the results. Your doctor will discuss this with you. CALL YOUR DOCTOR FOR ANY OF THE FOLLOWING: *If bleeding from the puncture site occurs- Apply gentle pressure to site with clean cloth and call your doctor or EMS. * If a knot or lump forms under the skin, increases in size, or causes pain. * If bruising appears to be worsening or moving further down your leg instead of disappearing. * Temperature above 101 F. CARE OF YOUR GROIN INCISION; * Bruising or purple discoloration of the skin near the puncture site is common. * You may shower only, no bathtub bathing for 5 days. Be careful to avoid slipping as your leg may feel stiff. * If a closure device was used on your femoral artery, please see the attached guide regarding care of the device and your leg. * Leave dressing on FOR 24 hours. CARE OF YOUR WRIST INCISION; * Bruising or purple discoloration of the skin near the puncture site is common. * You may shower. * DO NOT submerge wrist. * Leave dressing on FOR 24 hours. EFREM VALENTIN MD Mar 03, 2019 08:51
--- NOTE | 2019-03-03 08:56 | Cardiac Cath Report ---
Cardiac Cath Report Physician (s)/Emergency Department Technician (s) Physician EFREM VALENTIN MD Pre-Procedure Diagnosis Pre-Procedure Diagnosis: coronary artery disease Post-Procedure Note Procedure Start Date: Mar 03, 2019 Name of Procedure: left heart catheterization Abdominal aortogram with bilateral runoff Findings/Procedure Note PROCEDURE NOTE: 73-year-old lady with history of coronary artery disease multiple intervention the past had an abnormal stress test with transient ischemic dilatation, scheduled for cardiac catheterization, had episode of lower extremities pain and claudication, she was scheduled for bilateral runoff during the procedure. After explaining the procedure to the patient, all pros and cons were explained, all questions were answered. The patient signed the consent and then she was placed on the cardiac catheterization laboratory. Groin was prepped SL fashion local anesthesia was used. Sheath placed in the artery. Gin right and left catheter were used to access the coronary system. Pigtail was used to access the left ventricular cavity. Left ventriculogram was not done Pigtail catheter was placed in the abdominal aorta just above the renal artery and runoff down to the foot was done. At the end of the procedure the sheath was removed. Closure device was used FINDINGS: Hemodynamics LV 158/17, end-diastolic pressure of 17 Aorta 162/81 mean of 115 ANATOMY: Left Main is free of obstructive disease Left Anterior Descending has mild disease, patent stent at the midportion, ostial diagonal branch that has been present since 2013, mild small vessel disease distally Left Circumflex has mild disease at the proximal and distal portion, patent stent in the midportion Right Coronory Artery has mild disease nonobstructive disease LV Gram was not done, pressure was measured Aorta evaluation done with abdominal aortogram and bilateral runoff which showed mild disease, slightly slower flow at the left leg with no obstructive disease down to the foot, renal arteries are normal, inferior mesenteric artery is normal CONCLUSION: 1. Patent stents in the LAD and circumflex artery with [id number] disease nonobstructive 2. Normal left ventricular end-diastolic pressure 3. Mild atherosclerotic plaques in the abdominal aorta and the legs with no significant obstructive disease down to the foot with normal renal arteries DISCUSSION AND RECOMMENDATION: patient was educated on compliance with medication, I will stop Ranexa and continue all other medications and monitor Anesthesia Type: Conscious Sedation Estimated blood loss (mL): 15 ml Contrast Amount: 96 ml Total Radiation Dose: 420 mGy Post-Procedure Diagnosis Post-operative diagnosis: Chest pain Coronary artery disease Hypertension Hyperlipidemia EFREM VALENTIN MD Mar 03, 2019 08:56
[2019-03-03] MEDS ORDERED: PATIENT MAY USE OWN MEDS, ALL PO SCH (09:00)
--- NOTE | 2019-03-03 11:00 | NUR ---
SPOKE WITH THE PT WELL CALLING MAIL ORDER TO COMPLETE THE MED REC. PT HAD ALL HER MED BOTTLES (MOST WERE FROM [facility]) AND THEY WERE ALMOST ALL FULL HOWEVER WHEN I SPOKE WITH [facility] HER MOST RECENT SHIPMENT OUT WAS 11-17-2018 FOR 90 DAY SUPPLIES. WHEN I ASKED THE PT ABOUT THIS SHE SAID SHE HAD AN ABUNDANCE BUILT UP FROM WHEN SHE FILLED AT [facility]. I THEN CALLED [facility] AND SHE HAS HARDLY EVER FILLED ANYTHING THERE, AND NONE OF THE ONES IN QUESTION. I LET BRYSON IN THE [employer] IN[employer]ER KNOW THAT I WAS CONCERNED ABOUT COMPLIANCE SO HE COULD LET THE KNOW. RANEXA 500MG: PT HAD A BOTTLES THAT SAYS "1 TAB BID" HOWEVER THE PT STATES HER DIRECTIONS WERE CHANGED AND SHE KNOW TAKES 2 TABS BID. I LEFT ALMOST EVERYTHING ON THE MED REC EVEN THOUGH THE DATING IS OFF SINCE SHE HAS ALMOST FULL BOTTLES. I DID DOCUMENT THE DATES ON THE ADDITIONAL NOTES ON THE MED REC. THE FOLLOWING ARE FILL DATES: 06-17-2018 ISOSORBIDE #90/90DS 06-17-2018 PROTONIX #90/90DS 11-17-2018 ATORVASTATIN #90/90DS 11-17-2018 RANEXA 500MG #180(SEE ABOVE FOR DAY SUPPLY) 11-17-2018 AMLODIPINE #90/90DS 11-17-2018 LISINOPRIL #90/90DS 11-17-2018 MONTELUKAST #90/90DS 11-30-2018 ESCITALOPRAM #30/30DS OTC MEDS: ASPIRIN TYLENOL TYLENOL PM
== END 2019-03-03 13:15 | disposition home or self-care (01) ==
LOC: CATH 05:58 → SDC 09:06 → CATH 13:15
PROVIDERS: ATTEND Internal Medicine Cardiovascular Disease
DX: I25.10 Atherosclerotic heart disease of native coronary artery without angina pectoris (principal); I10 Essential (primary) hypertension; R55 Syncope and collapse; E78.2 Mixed hyperlipidemia; G89.29 Other chronic pain; J44.9 Chronic obstructive pulmonary disease, unspecified; E11.9 Type 2 diabetes mellitus without complications; G25.81 Restless legs syndrome; I73.9 Peripheral vascular disease, unspecified; Z88.8 Allergy status to other drugs, medicaments and biological substances; Z88.5 Allergy status to narcotic agent; Z79.82 Long term (current) use of aspirin; Z90.49 Acquired absence of other specified parts of digestive tract; Z90.710 Acquired absence of both cervix and uterus; Z83.3 Family history of diabetes mellitus; Z82.3 Family history of stroke
CPT/HCPCS: 36415; 71045; 80053; 80061; 81000; 85027; 85610; 85730; 87081; 93458

== ENCOUNTER 2019-07-19 09:02 | Emergency (ER) | payer MEDICARE ==
[~2019-07-19] VITALS: Ht 157.4 cm; Wt 76.6 kg
[~2019-07-19 09:02] MED LIST changes: +ACET-2715 PO; +ACET325T38 PO; +AMLO10TA7 PO; +ATOR20TA49 PO; +BUDE10.2 IH; +CHOL10007 PO; +ESCI20TA PO; +IBUP-1773 PO; +MONT10TA26 PO; +PANT40TA3 PO; +RANO500T3 PO; +ROPI0.5T4 PO; +RT-ALBUINH IH
--- OUTSIDE RECORDS SUMMARY | 2019-07-19 09:09 | XMS REPORT ---
Author Author Juanita PATIÑO Organization [facility] Address [address] [place] [address] Care Team Providers Care Hand Box Folder Name Role Phone FUENTES PATIÑO Unavailable PROBLEMS Type Condition ICD9-CM Code WWZ63-US Code Onset Dates Condition S tatus SNOMED Code Problem Episodic cluster headache, not intractable G44.019 Active 541048155 Problem Angina pectoris, unspecified I20.9 A ctive 728568065 Problem Acute bilateral low back pain with left-sided sciatica M54.42 Active 51802977 Problem Other chronic pain G89.29 Active 8 9359529 Problem Lumbago with sciatica, right side M54.41 Active 150095072 Problem Lumbago with sciatica, left side M54.42 Active 817590162 Problem COPD exacerbation J44.1 Active 29 7106711661550 Problem Anxiety F41.9 Active 54310622 Problem Major depressive disorder, recurrent, mild F33.0 Active 993623670 Problem History of diabetes mellitus, type II Z86.39 Active 960428290 Problem Other chronic pain G89.29 Active 8 1120255 Problem Hyperlipidemia, unspecified hyperlipidemia type E7 8.5 Active 35151096 Problem 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.0 Active 831617064 Problem Chronic obstructive pulmonary disease, unspecified COPD ty pe J44.9 Active 31836384 Problem Essential hypertension I10 Active 76467762 Problem Seasonal allergic rhinitis due to pollen J30.1 Active 70967748 Problem Atherosclerotic heart diseas e of [place] coronary artery without angina pectoris I25.10 Active 9379445740097 Problem Hypoglycemia E16.2 Active 9764830 03 Problem 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 Active 247808315758 7 Problem Primary osteoarthritis of right knee M17.11 Active 679881491044005 Problem Dysphagia, unspecified type R13.10 Ac tive 80253238 ALLERGIES No Information ENCOUNTERS Encounter Location Date Diagnosis [place] [address] [place] [id number] 28 May, 2019 [place] [address] [address] 09 May, 2019 [place] [address] [address] 30 Apr, 2019 Dysphagia, unspecified type R13.10 ; Coronary artery disease of [place] artery of [place] heart with stable angina pectoris I25.118 and Breast cancer screening by mammogram Z12.31 [place] [address] [place] [id number] [address] [place] [id number] 10 Apr, 2019 Low back pain, unspecified b ack pain laterality, with sciatica presence unspecified M54.5 ; Onychomycosis B35.1 ; Other chronic pain G89.29 ; Chronic obstructive pulmonary disease, unspecified COPD type J44.9 ; Essential hypertension I10 ; Family history of diabetes mellitus Z83.3 ; Hyperlipidemia, unspecified hyperlipidemia type E78.5 ; Anxiety F41.9 and 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 [place] [address] [address] 06 Mar, 2019 Primary osteoarthritis of ri t knee M17.11 [place] [address] [place] [id number] [address] [place] [phone] Mar, [place] [address] [place] [id number] [place] [id number] Feb, Onychomycosis B35.1 ; Nail h ypertrophy L60.2 and Self-care deficit for grooming and hygiene Z74.1 [place] [address] [place] [id number] [place] [id number] 11 Jan, 2019 Posterior right knee pain M2 5.561 ; Pain in left leg M79.605 ; Pain in right leg M79.604 ; Coronary artery disease of [place] artery of [place] heart with stable angina pectoris I25.118 and Encounter for immunization Z23 [place] [id number] [place] [phone] Dec, Nail hypertrophy L60.2 ; Lakshmi chomycosis B35.1 and Self-care deficit for grooming and hygiene Z74.1 [place] [address] [facility] [id number] [address] [place] [id number] Oct, [facility] [address] [facility] [id number] [address] [place] [id number] Sep, Other chest pain R07.89 [facility] [address] [facility] [id number] [address] [place] [phone] Sep, [facility] [address] [facility] [id number] [address] [place] [id number] Sep, Cellulitis of groin L03.314 [place] [address] [facility] [id number] [address] [place] [address] Sep, Nail hypertrophy L60.2 and S elf-care deficit for grooming and hygiene Z74.1 [place] [address] [facility] [id number] [address] [place] [id number] Aug, [place] [address] [facility] [id number] [place] [address] Aug, Hypoglycemia E16.2 ; Nonintr actable episodic headache, unspecified headache type R51 and Candidiasis of breast B37.89 [place] [address] [facility] [id number] [address] [place] [phone] Aug, Nail hypertrophy L60.2 and S elf-care deficit for grooming and hygiene Z74.1 [place] [address] [facility] [id number] [address] [place] [id number] June, [facility] [address] [facility] [id number] [address] [place] [id number] May, Bee sting, accidental or uni ntentional, initial encounter T63.441A [place] [address] [facility] [id number] [address] [place] [address] Apr, Primary osteoarthritis invol ving multiple joints M15.0 ; Angina pectoris, unspecified I20.9 ; History of diabetes mellitus, type II Z86.39 and Chronic obstructive pulmonary disease, unspecified COPD type J44.9 [facility] [address] [facility] [id number] [address] [place] [id number] Apr, Nail hypertrophy L60.2 and [facility] deficit for grooming and hygiene Z74.1 [facility] [address] [facility] [id number] [address] [place] [id number] Mar, [facility] [address] [facility] [id number] [address] [place] [id number] Mar, Low back pain M54.5 [facility] [address] [facility] [id number] [address] [place] [phone] Mar, [facility] [address] [facility] [id number] [address] [place] [id number] Feb, [facility] [address] [place] [id number] [address] [place] [phone] Feb, [facility] [address] [place] [id number] [address] [place] [id number] Feb, Encounter for Medicare annua l wellness exam Z00.00 ; Major depressive disorder, recurrent, mild F33.0 ; Chronic obstructive pulmonary disease, unspecified COPD type J44.9 ; Atherosclerotic heart disease of [place] coronary artery without angina pectoris I25.10 ; Primary osteoarthritis involving multiple joints M15.0 ; Angina pectoris, unspecified I20.9 and 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 [facility] [address] [facility] [id number] [address] [place] [phone] Jan, [facility] [address] [facility] [id number] [address] [place] [id number] Jan, [facility] [address] [place] [id number] [address] [place] [id number] Dec, Chronic obstructive pulmonar y disease, unspecified COPD type J44.9 ; Low back pain M54.5 ; Other chronic pain G89.29 and Moderate episode of recurrent major depressive disorder F33.1 [facility] [address] [place] [id number] [address] [place] [id number] Nov, [place] [address] [place] [id number] [place] [address] Nov, Encounter for immunization Z 23 [place] [place] [id number] [place] [address] Nov, Allergic rhinitis due to ned iona, unspecified seasonality J30.1 ; Primary osteoarthritis involving multiple joints M15.0 and Encounter for immunization Z23 [place] [address] [place] [id number] [place] [phone] Oct, Nail hypertrophy L60.2 and S elf-care deficit for hygiene R46.0 [facility] [address] [address] Oct, Chest congestion R09.89 ; So re throat J02.9 and Cough R05 [place] [address] [address] Sep, [place] [address] [address] Aug, Low back pain M54.5 ; Other chronic pain G89.29 ; Pain in right knee M25.561 ; Pain in left knee M25.562 and Rash R21 [place] [address] [place] [id number] [address] [place] [address] Aug, Nail hypertrophy L60.2 and S elf-care deficit for hygiene R46.0 [place] [address] [place] [id number] [address] [place] [id number] June, Hypertrophy of nail L60.2 an d Self-care deficit for hygiene R46.0 [place] [address] [place] [id number] [address] [place] [phone] June, [place] [address] [facility] [id number] [address] [place] [phone] June, COPD exacerbation J44.1 [place] [address] [facility] [id number] [address] [place] [address] May, [place] [address] [facility] [id number] [address] [place] [id number] Apr, Seasonal allergic rhinitis d ue to pollen J30.1 ; Encounter for immunization Z23 ; COPD exacerbation J44.1 ; Encounter for screening mammogram for breast cancer Z12.31 and Colon cancer screening Z12.11 [place] [address] [facility] [id number] [address] [place] [address] Apr, [place] [address] [facility] [id number] [address] [place] [address] Feb, Lumbago with sciatica, right side M54.41 ; Lumbago with sciatica, left side M54.42 ; Other chronic pain G89.29 ; Left hip pain M25.552 and Anxiety F41.9 [facility] [place] [address] [facility] [id number] [address] [place] [phone] Jan, History of asthma Z87.09 ; C OPD exacerbation J44.1 and Acute non-recurrent maxillary sinusitis J01.00 [place] [address] [facility] [id number] [address] [place] [address] 20 Jan, 2017 Other chronic pain G89.29 an d Acute bilateral low back pain with left-sided sciatica M54.42 [place] [address] [facility] [id number] [address] [place] [address] 14 Jan, 2017 Other chronic pain G89.29 an d Acute bilateral low back pain with left-sided sciatica M54.42 [place] [address] [facility] [id number] [address] [place] [id number] 08 Dec, 2016 Trochanteric bursitis of lef t hip M70.62 ; Left hip pain M25.552 and Other chronic pain G89.29 [facility] [address] [place] [id number] [address] [place] [id number] Nov, Local reaction to insect sti ng, accidental or unintentional, initial encounter T63.481A and Acute dermatitis L30.9 [facility] [address] [place] [id number] [place] [address] Nov, Breast cancer screening Z12. 31 [place] [address] [address] Nov, Acute bilateral low back rangel n with left-sided sciatica M54.42 and Low back pain, unspecified back pain laterality, with sciatica presence unspecified M54.5 [facility] [address] [place] [id number] [place] [address] Oct, Acute bilateral low back rangel n with left-sided sciatica M54.42 [place] [address] [address] Sep, Low back pain, unspecified b ack pain laterality, with sciatica presence unspecified M54.5 [place] [address] [place] [address] Sep, [place] [address] [address] Aug, Nail hypertrophy L60.2 ; Lakshmi chomycosis B35.1 and Self-care deficit for hygiene R46.0 [place] [address] [place] [phone] Aug, [place] [address] [place] [address] Aug, [facility] [address] [place] [id number] [place] [address] Jul, Rash R21 [place] [address] [place] [id number] [place] [phone] Jul, [place] [address] [place] [address] Jul, Low back pain, unspecified b ack pain laterality, with sciatica presence unspecified M54.5 [facility] [address] [id number] [address] [place] [phone] June, Nail hypertrophy L60.2 ; Marilee f-care deficit for hygiene R46.0 and Other chronic pain G89.29 [facility] [address] [id number] [address] [place] [phone] June, Low back pain, unspecified b ack pain laterality, with sciatica presence unspecified M54.5 [place] [address] [id number] [address] [place] [phone] May, [facility] [address] [id number] [address] [place] [phone] May, [place] [address] [id number] [address] [place] [id number] May, [facility] [address] [id number] [address] [place] [id number] May, Low back pain, unspecified b ack pain laterality, with sciatica presence unspecified M54.5 [facility] [address] [id number] [address] [place] [id number] Apr, Breast pain, left N64.4 ; Le ft arm pain M79.602 and Family history of diabetes mellitus Z83.3 [facility] [address] [id number] [address] [place] [id number] Apr, Low back pain, unspecified b ack pain laterality, with sciatica presence unspecified M54.5 [facility] [address] [id number] [address] [place] [address] Apr, [facility] [address] [id number] [address] [place] [id number] Mar, Onychomycosis B35.1 and Self -care deficit for hygiene R46.0 [facility] [address] [id number] [address] [place] [id number] 17 Mar, 2016 Low back pain, unspecified b ack pain laterality, with sciatica presence unspecified M54.5 [facility] [address] [id number] [address] [place] [id number] 14 Mar, 2016 Pain in left shoulder M25.51 2 and Other chronic pain G89.29 [facility] [address] [id number] [address] [place] [id number] 13 Mar, 2016 Arthralgia, unspecified join t M25.50 [facility] [address] [id number] [address] [place] [phone] 06 Mar, 2016 [facility] [address] [id number] [address] [place] [id number] Feb, Low back pain, unspecified b ack pain laterality, with sciatica presence unspecified M54.5 [facility] [address] [id number] [address] [place] [id number] 12 Feb, 2016 [facility] [address] [place] [id number] Feb, Dental examination Z01.20 [facility] [id number] [place] [id number] Feb, Dental examination Z01.20 [facility] [address] [id number] [address] [place] [id number] Feb, Cramp of both lower extremit ies R25.2 [facility] [address] [id number] [address] [place] [id number] Feb, [facility] [address] [facility] [id number] [address] [place] [id number] Jan, Hypoxemia R09.02 ; Episodic cluster headache, not intractable G44.019 and Cramp of both lower extremities R25.2 [facility] [address] [id number] [address] [place] [id number] Jan, [facility] [address] [id number] [address] [place] [id number] Jan, Low back pain, unspecified b ack pain laterality, with sciatica presence unspecified M54.5 [facility] [address] [id number] [address] [place] [id number] Jan, Hypertrophy of nail L60.2 ; Onychomycosis B35.1 and Self-care deficit for hygiene R46.0 [facility] [address] [id number] [address] [place] [address] Jan, Low back pain, unspecified b ack pain laterality, with sciatica presence unspecified M54.5 [facility] [address] [facility] [id number] [address] [place] [id number] Dec, Low back pain, unspecified b ack pain laterality, with sciatica presence unspecified M54.5 [facility] [address] [facility] [id number] [address] [place] [id number] Dec, Bug bite with infection, ini tial encounter W57.XXXA [place] [address] [facility] [id number] [address] [place] [address] Nov, Low back pain, unspecified b ack pain laterality, with sciatica presence unspecified M54.5 [place] [address] [facility] [id number] [address] [place] [address] Nov, [facility] [address] [facility] [id number] [address] [place] [address] Nov, Chronic obstructive pulmonar y disease, unspecified COPD type J44.9 [facility] [address] [facility] [id number] [address] [place] [id number] Nov, [place] [address] [facility] [id number] [address] [place] [id number] 14 Oct, 2015 [place] [address] [facility] [id number] [address] [place] [id number] Oct, Onychomycosis B35.1 and Ingr own nail L60.0 [facility] [address] [id number] [address] [place] [address] Oct, Low back pain, unspecified b ack pain laterality, with sciatica presence unspecified M54.5 [facility] [address] [id number] [address] [place] [phone] Sep, [facility] [address] [id number] [address] [place] [id number] Sep, Low back pain, unspecified b ack pain laterality, with sciatica presence unspecified M54.5 [place] [address] [id number] [address] [place] [id number] Aug, [place] [address] [id number] [address] [place] [id number] Aug, Cramp of both lower extremit ies R25.2 ; Breast cancer screening Z12.39 ; Hyperlipidemia, unspecified hyperlipidemia type E78.5 and Atypical mole L81.9 [place] [address] [id number] [address] [place] [address] Aug, Chronic obstructive pulmonar y disease, unspecified COPD type J44.9 [facility] [address] [id number] [address] [place] [id number] Aug, Low back pain, unspecified b ack pain laterality, with sciatica presence unspecified M54.5 [facility] [address] [id number] [address] [place] [address] Aug, Atherosclerotic heart diseas e of [place] coronary artery without angina pectoris I25.10 [facility] [address] [id number] [address] [place] [id number] Jul, [facility] [address] [id number] [address] [place] [phone] Jul, [facility] [address] [id number] [address] [place] [id number] 13 Jul, 2015 Allergic rhinitis, unspecifi ed allergic rhinitis type J30.9 [facility] [address] [id number] [address] [place] [id number] Jul, Low back pain, unspecified b ack pain laterality, with sciatica presence unspecified M54.5 [place] [address] [facility] [id number] [address] [place] [id number] 07 Jul, 2015 Post-concussion headache G44 .309 and Arthralgia, unspecified joint M25.50 [place] [address] [id number] [address] [place] [id number] June, Chronic obstructive pulmonar y disease, unspecified COPD type J44.9 [place] [address] [facility] [id number] [address] [place] [id number] June, [place] [address] [facility] [id number] [address] [place] [phone] May, [place] [address] [facility] [id number] [address] [place] [address] May, [place] [address] [facility] [id number] [address] [place] [address] 30 Apr, 2015 Hip pain 719.45 and Atherosc lerotic heart disease of [place] coronary artery without angina pectoris I25.10 [place] [address] [facility] [id number] [address] [place] [address] Apr, History of self-care deficit Z86.59 ; Hypertrophy of nail L60.2 and Onychomycosis B35.1 [place] [address] [facility] [id number] [address] [place] [phone] Apr, [place] [address] [place] [id number] [address] [place] [id number] Apr, Gastroenteritis K52.9 [place] [address] [facility] [id number] [address] [place] [id number] Mar, [place] [address] [id number] [address] [place] [id number] Mar, [facility] [address] [id number] [address] [place] [id number] Mar, [facility] [address] [id number] [address] [place] [id number] Mar, Acute pain due to injury G89 .11 and Other chronic pain G89.29 [facility] [address] [id number] [address] [place] [id number] Mar, [facility] [address] [id number] [address] [place] [id number] Mar, [facility] [address] [id number] [address] [place] [id number] Mar, [facility] [address] [id number] [address] [place] [id number] Mar, [facility] [address] [id number] [address] [place] [id number] Feb, Low back pain, unspecified b ack pain laterality, with sciatica presence unspecified M54.5 [facility] [address] [id number] [address] [place] [phone] Feb, [facility] [address] [id number] [address] [place] [id number] Jan, [facility] [address] [id number] [address] [place] [id number] Jan, Low back pain, unspecified b ack pain laterality, with sciatica presence unspecified M54.5 [facility] [address] [id number] [address] [place] [id number] Jan, Other chronic pain G89.29 an d Acute pain due to injury G89.11 [facility] [address] [id number] [address] [place] [id number] Dec, [facility] [address] [id number] [address] [place] [id number] Nov, Essential hypertension I10 a nd Viral infection, unspecified B34.9 [facility] [address] [id number] [address] [place] [id number] Nov, [facility] [address] [facility] [id number] [address] [place] [address] Nov, [facility] [address] [facility] [id number] [address] [place] [phone] Oct, [facility] [address] [id number] [address] [place] [id number] Oct, [facility] [address] [facility] [id number] [address] [place] [phone] Oct, [facility] [address] [facility] [id number] [address] [place] [id number] Oct, [facility] [address] [facility] [id number] [address] [place] [id number] Sep, [facility] [address] [facility] [facility] [id number] [address] [place] [phone] Sep, Hypertrophy of nail 703.8 an d Self-care deficit for hygiene V40.39 [facility] [address] [facility] [id number] [address] [place] [phone] Sep, [facility] [address] [facility] [id number] [address] [place] [phone] Sep, [facility] [address] [facility] [id number] [address] [place] [phone] Aug, [facility] [address] [facility] [id number] [address] [place] [id number] Jul, Onychomycosis 110.1 and Ingr own nail 703.0 [facility] [address] [facility] [id number] [address] [place] [id number] Jul, Other screening mammogram V7 6.12 [facility] [address] [id number] [address] [place] [phone] Jul, [facility] [address] [id number] [address] [place] [phone] Jul, Hip pain 719.45 ; Visual dis turbance 368.9 and Conjunctivitis 372.30 [facility] [address] [id number] [address] [place] [phone] June, [facility] [address] [id number] [address] [place] [phone] June, [facility] [address] [id number] [address] [place] [phone] June, [facility] [address] [id number] [address] [place] [phone] June, [facility] [address] [id number] [address] [place] [phone] May, [facility] [address] [id number] [address] [place] [phone] May, [facility] [address] [id number] [address] [place] [phone] Apr, [facility] [address] [id number] [address] [place] [phone] Apr, [facility] [address] [id number] [address] [place] [phone] Apr, [facility] [address] [id number] [address] [place] [phone] Apr, [facility] [address] [id number] [address] [place] [phone] Mar, [facility] [address] [id number] [address] [place] [phone] Mar, [facility] [address] [id number] [address] [place] [phone] Feb, [facility] [address] [id number] [address] [place] [address], [place] [address] Feb, [facility] [address] [id number] [address] [place] [address], [place] [address] Feb, [facility] [address] [id number] [address] [place] [address], [place] [address] Jan, [facility] [address] [id number] [address] [place] [address], [place] [address] Jan, [facility] [address] [id number] [address] [place] [address], [place] [address] Jan, [facility] [address] [id number] [address] [place] [address], [place] [address] Jan, [facility] [address] [id number] [address] [place] [address], [place] [address] Jan, [facility] [address] [id number] [address] [place] [address], [place] [phone] Jan, [facility] [address] [id number] [address] [place] [address], [place] [address] Dec, [facility] [address] [id number] [address] [place] [address], [place] [address] Nov, [facility] [address] [id number] [address] [place] [address], [place] [address] Nov, [facility] [address] [id number] [address] [place] [phone] Nov, [facility] [address] [id number] [address] [place] [address], [place] [address] Nov, [facility] [address] [id number] [address] [place] [address], [place] [address] Nov, [facility] [address] [id number] [address] [place] [address], [place] [address] Nov, [facility] [address] [id number] [address] [place] [address], [place] [address] Nov, [facility] [address] [id number] [address] [place] [address], [place] [address] Nov, [facility] [address] [id number] [address] [place] [address], [place] [address] Nov, [facility] [address] [id number] [address] [place] [address], [place] [phone] Nov, [facility] [address] [id number] [address] [place] [address], [place] [address] Oct, [facility] [address] [id number] [address] [place] [address], [place] [address] Oct, [facility] [address] [id number] [address] [place] [address], [place] [phone] Oct, [facility] [address] [id number] [address] [place] [address], [place] [address] Oct, [facility] [address] [id number] [address] [place] [address], [place] [id number] 15 Oct, 2013 [facility] [address] [id number] [address] [place] [address], [place] [id number] 15 Oct, 2013 [facility] [address] [id number] [address] [place] [address], [place] [phone] Oct, [facility] [address] [id number] [address] [place] [address], [place] [phone] Oct, [facility] [address] [id number] [address] [place] [address], [place] [id number] Sep, [facility] [address] [id number] [address] [place] [address], [place] [id number] Sep, [facility] [address] [id number] [address] [place] [address], [place] [id number] Sep, [facility] [address] [id number] [address] [place] [address], [place] [address] Sep, [facility] [address] [id number] [facility] [place] [address] Aug, [facility] [address] [id number] [facility] [place] [address] Aug, [facility] [address] [id number] [facility] [place] [address] Aug, [facility] [address] [id number] [address] [place] [address], [place] [address] Aug, [facility] [address] [id number] [address] [place] [address], [place] [address] Aug, [facility] [address] [id number] [address] [place] [address], [place] [address] Aug, [facility] [address] [id number] [address] [place] [address], [place] [address] Aug, [facility] [address] [id number] [address] [place] [address], [place] [address] Aug, [facility] [address] [id number] [address] [place] [address], [place] [address] Jul, [facility] [address] [id number] [address] [place] [address], [place] [phone] Jul, [facility] [address] [id number] [address] [place] [address], [place] [address] Jul, [facility] [address] [id number] [address] [place] [address], [place] [address] Jul, [facility] [address] [id number] [address] [place] [address], [place] [address] Jul, [facility] [address] [id number] [address] [place] [address], [place] [address] Jul, [facility] [address] [id number] [address] [place] [address], [place] [address] Jul, [facility] [address] [id number] [address] [place] [address], [place] [address] Jul, [facility] [address] [id number] [address] [place] [address], [place] [address] Jul, [facility] [address] [id number] [address] [place] [address], [place] [address] Jul, [facility] [address] [id number] [address] [place] [address], [place] [address] Jul, [facility] [address] [id number] [address] [place] [address], [place] [address] Jul, [facility] [address] [id number] [address] [place] [address], [place] [address] Jul, [facility] [address] [id number] [address] [place] [address], [place] [address] Jul, [facility] [address] [id number] [address] [place] [address], [place] [phone] Jul, [facility] [address] [id number] [address] [place] [address], [place] [address] Jul, [facility] [address] [id number] [address] [place] [address], [place] [address] Jul, [facility] [address] [id number] [address] [place] [address], [place] [address] June, [facility] [address] [id number] [address] [place] [address], [place] [address] June, [facility] [address] [id number] [address] [place] [address], [place] [address] May, [facility] [address] [id number] [address] [place] [address], [place] [address] May, [facility] [address] [id number] [address] [place] [address], [place] [address] May, [facility] [address] [id number] [address] [place] [address], [place] [address] May, [facility] [address] [id number] [facility] [place] [address] 17 Apr, 2013 [facility] [address] [id number] [address] [place] [address], [place] [id number] 17 Apr, 2013 [facility] [address] [id number] [facility] [place] [address] 13 Apr, 2013 [facility] [address] [id number] [address] [place] [address], [place] [address] 13 Apr, 2013 [facility] [address] [id number] [address] [place] [address], [place] [address] 11 Apr, 2013 [facility] [address] [id number] [address] [place] [address], [place] [id number] 11 Apr, 2013 [facility] [address] [id number] [address] [place] [address], [place] [id number] 10 Apr, 2013 [facility] [address] [id number] [address] [place] [address], [place] [id number] 13 Mar, 2013 [facility] [address] [id number] [address] [place] [address], [place] [address] 13 Mar, 2013 [facility] [address] [id number] [address] [place] [address], [place] [id number] 11 Mar, 2013 [facility] [address] [id number] [address] [place] [address], [place] [phone] 11 Mar, 2013 [facility] [address] [id number] [address] [place] [address], [place] [address] Feb, [facility] [address] [id number] [address] [place] [address], [place] [phone] Feb, [facility] [address] [id number] [address] [place] [address], [place] [address] Feb, [facility] [address] [id number] [address] [place] [address], [place] [phone] Feb, [facility] [address] [id number] [address] [place] [address], [place] [address] Jan, [facility] [address] [id number] [address] [place] [address], [place] [id number] Jan, [facility] [address] [id number] [address] [place] [address], [place] [address] Jan, [facility] [address] [id number] [address] [place] [address], [place] [address] Jan, [facility] [address] [id number] [address] [place] [address], [place] [address] Dec, [facility] [address] [id number] [address] [place] [address], [place] [address] Dec, [facility] [address] [id number] [address] [place] [address], [place] [address] Dec, [facility] [address] [id number] [address] [place] [address], [place] [phone] Dec, [facility] [address] [id number] [address] [place] [id number] Dec, [facility] [address] [id number] [address] [place] [address], [place] [address] Nov, [facility] [address] [id number] [address] [place] [phone] Nov, [facility] [address] [id number] [address] [place] [phone] Nov, [facility] [address] [id number] [address] [place] [phone] Nov, [facility] [address] [id number] [address] [place] [address], [place] [address] Nov, [facility] [address] [id number] [address] [place] [phone] Nov, [facility] [address] [id number] [address] [place] [id number] Nov, [facility] [address] [id number] [address] [place] [address], [place] [address] Nov, [facility] [address] [id number] [address] [place] [address], [place] [address] Oct, [facility] [address] [id number] [address] [place] [address], [place] [address] Oct, [facility] [address] [id number] [address] [place] [address], [place] [address] Sep, [facility] [address] [id number] [address] [place] [address], [place] [address] Sep, [facility] [address] [id number] [address] [place] [address], [place] [address] Sep, [facility] [address] [id number] [address] [place] [address], [place] [address] Sep, [facility] [address] [id number] [address] [place] [address], [place] [address] Sep, [facility] [address] [id number] [address] [place] [address], [place] [address] Sep, [facility] [address] [id number] [address] [place] [address], [place] [address] Sep, [facility] [address] [id number] [address] [place] [address], [place] [address] Aug, [facility] [address] [id number] [address] [place] [address], [place] [address] Aug, [facility] [address] [id number] [address] [place] [address], [place] [address] Aug, [facility] [address] [id number] [address] [place] [address], [place] [address] Aug, [facility] [address] [id number] [address] [place] [address], [place] [address] Aug, [facility] [address] [id number] [address] [place] [address], [place] [address] Aug, [facility] [address] [id number] [address] [place] [address], [place] [address] 05 Aug, 2012 [facility] [address] [id number] [address] [place] [address], [place] [address] Aug, [facility] [address] [id number] [address] [place] [address], [place] [address] Jul, [facility] [address] [id number] [address] [place] [address], [place] [address] Jul, [facility] [address] [id number] [address] [place] [address], [place] [address] Jul, [facility] [address] [id number] [address] [place] [address], [place] [address] Jul, [facility] [address] [id number] [address] [place] [address], [place] [address] June, [facility] [address] [id number] [address] [place] [address], [place] [address] June, [facility] [address] [id number] [address] [place] [address], [place] [address] June, [facility] [address] [id number] [address] [place] [address], [place] [address] June, [facility] [address] [id number] [address] [place] [address], [place] [address] June, [facility] [address] [id number] [address] [place] [address], [place] [address] May, [facility] [address] [id number] [address] [place] [address], [place] [address] May, [facility] [address] [id number] [address] [place] [address], [place] [address] 16 May, 2012 [facility] [address] [id number] [address] [place] [address], [place] [address] 04 May, 2012 [facility] [address] [id number] [address] [place] [address], [place] [address] 26 Apr, 2012 [facility] [address] [id number] [address] [place] [address], [place] [id number] 25 Apr, 2012 [facility] [address] [id number] [address] [place] [address], [place] [id number] 08 Apr, 2012 [facility] [address] [id number] [address] [place] [address], [place] [address] 07 Apr, 2012 [facility] [address] [id number] [address] [place] [address], [place] [address] 21 Mar, 2012 [facility] [address] [id number] [address] [place] [address], [place] [id number] 15 Mar, 2012 [facility] [address] [id number] [address] [place] [address], [place] [id number] 13 Mar, 2012 [facility] [address] [id number] [address] [place] [address], [place] [id number] 07 Mar, 2012 [facility] [address] [id number] [address] [place] [address], [place] [address] Feb, [facility] [address] [id number] [address] [place] [address], [place] [address] Jan, [facility] [address] [id number] [address] [place] [address], [place] [address] Jan, [facility] [address] [id number] [address] [place] [address], [place] [id number] Jan, [facility] [address] [id number] [address] [place] [address], [place] [address] Dec, [facility] [address] [id number] [address] [place] [address], [place] [address] Dec, [facility] [address] [id number] [address] [place] [address], [place] [address] Dec, [facility] [address] [id number] [address] [place] [address], [place] [address] Dec, [facility] [address] [id number] [address] [place] [address], [place] [id number] 15 Dec, 2011 [facility] [address] [id number] [address] [place] [address], [place] [id number] 15 Dec, 2011 [facility] [address] [id number] [address] [place] [address], [place] [id number] 14 Dec, 2011 [facility] [address] [id number] [address] [place] [address], [place] [id number] 07 Dec, 2011 [facility] [address] [id number] [address] [place] [address], [place] [id number] 07 Dec, 2011 [facility] [address] [id number] [address] [place] [address], [place] [id number] 17 Nov, 2011 [facility] [address] [id number] [address] [place] [address], [place] [id number] 17 Nov, 2011 [facility] [address] [id number] [address] [place] [address], [place] [id number] Nov, [facility] [address] [id number] [address] [place] [address], [place] [id number] 12 Nov, 2011 [facility] [address] [id number] [address] [place] [address], [place] [id number] 10 Nov, 2011 [facility] [address] [id number] [address] [place] [address], [place] [id number] 10 Nov, 2011 [facility] [address] [id number] [address] [place] [address], [place] [id number] Oct, [facility] [address] [id number] [address] [place] [address], [place] [id number] 16 Sep, 2011 [facility] [address] [id number] [address] [place] [address], [place] [id number] Sep, [facility] [address] [id number] [address] [place] [address], [place] [id number] Aug, [facility] [address] [id number] [address] [place] [address], [place] [id number] Aug, [facility] [address] [id number] [address] [place] [address], [place] [id number] Aug, [facility] [address] [id number] [address] [place] [address], [place] [id number] Aug, [facility] [address] [id number] [address] [place] [address], [place] [id number] Aug, [facility] [address] [id number] [address] [place] [address], [place] [id number] Jul, [facility] [address] [id number] [address] [place] [address], [place] [id number] Jul, [facility] [address] [id number] [address] [place] [address], [place] [id number] June, [facility] [address] [id number] [address] [place] [address], [place] [id number] June, [facility] [address] [id number] [address] [place] [address], [place] [id number] June, [facility] [address] [id number] [address] [place] [address], [place] [id number] June, [facility] [address] [id number] [address] [place] [address], [place] [id number] May, [facility] [address] [id number] [address] [place] [address], [place] [id number] Apr, [facility] [address] [id number] [address] [place] [address], [place] [id number] Apr, [facility] [address] [id number] [address] [place] [address], [place] [id number] 15 Apr, 2011 [facility] [address] [id number] [address] [place] [address], [place] [id number] 08 Apr, 2011 [facility] [address] [id number] [address] [place] [address], [place] [id number] 05 Apr, 2011 [facility] [address] [id number] [address] [place] [address], [place] [id number] 29 Mar, 2011 [facility] [address] [id number] [address] [place] [address], [place] [id number] Mar, [facility] [address] [id number] [address] [place] [address], [place] [id number] 04 Mar, 2011 [facility] [address] [id number] [address] [place] [address], [place] [id number] Feb, [facility] [address] [id number] [address] [place] [address], [place] [id number] Feb, [facility] [address] [id number] [address] [place] [address], [place] [id number] Feb, [facility] [address] [id number] [address] [place] [address], [place] [id number] Feb, [facility] [address] [id number] [address] [place] [address], [place] [id number] Feb, [facility] [address] [id number] [address] [place] [address], [place] [id number] Feb, [facility] [address] [id number] [address] [place] [address], [place] [phone] Jan, [facility] [address] [id number] [address] [place] [address], [place] [id number] Jan, [facility] [address] [id number] [address] [place] [address], [place] [id number] Jan, [facility] [address] [id number] [address] [place] [address], [place] [id number] Jan, [facility] [address] [id number] [address] [place] [address], [place] [id number] Jan, [facility] [address] [id number] [address] [place] [address], [place] [id number] Jul, [facility] [address] [id number] [address] [place] [address], [place] [phone] June, [facility] [address] [id number] [address] [place] [id number] 13 Feb, 2010 [facility] [address] [id number] [address] [place] [id number] Jan, [facility] [address] [id number] [address] [place] [id number] Sep, [facility] [address] [id number] [address] [place] [id number] Aug, [facility] [address] [id number] [address] [place] [phone] May, [facility] [facility] [address] [id number] [address] [place] [phone] Apr, [facility] [address] [id number] [address] [place] [phone] Jan, [facility] [address] [id number] [address] [place] [phone] Jan, [facility] [address] [id number] [address] [place] [phone] Jan, [facility] [address] [id number] [address] [place] [id number] Dec, [facility] [address] [id number] [address] [place] [phone] Dec, [facility] [address] [id number] [address] [place] [id number] Nov, [facility] [address] [id number] [address] [place] [phone] Nov, [facility] [address] [id number] [address] [place] [phone] Nov, IMMUNIZATIONS No Known Immunizations SOCIAL HISTORY Never Assessed REASON FOR VISIT PLAN OF CARE VITAL SIGNS MEDICATIONS Unknown Medications RESULTS No Results PROCEDURES No Known procedures INSTRUCTIONS MEDICATIONS ADMINISTERED No Known Medications MEDICAL (GENERAL) HISTORY Type Description Date Medical History hypertension Medical History hyperlipidemia Medical History type II diabetes Medical History osteoarthritis Medical History chronic obstructive pulmonary disease (C OPD) Medical History coronary artery disease Diallo nt in 2012 Heart cath in 2016 and stress test in 2017 Dr Alcala Medical History back pain (2 displaced vertebrae) Medical History echo (11/2012) WNL Medical History asthma Medical History restless leg syndrome Surgical History heart cath-stent mid to distal circumfle x (Cari) 07/2012 Surgical History heart cath-stent to LAD for 60% stenosis (Cari) 08/2012 Surgical History heart cath-stents showed min imal dz, but were patent, 95% occlusion of small vessels; too small to stent (Cari) 08/2013 Surgical History EGD-dilated stricture ([facility]) 09/2012 Surgical History cholecystectomy Surgical History hysterectomy Surgical History appendectomy Surgical History spine surgery-halo (neck and back surger y) 1993 Surgical History carpal tunnel release Surgical History rectocele/cystocele repair, pessary fitt ed ([facility]) 05/2013 Surgical History Suspicious lesion removal 2015 Surgical History heart cath 03/03/2019 Hospitalization History [facility] acute gastoentereritis, dehydrati on 06/06 Hospitalization History Heart Cath 2013 Hospitalization History ER visit- 09/2018
--- OUTSIDE RECORDS SUMMARY | 2019-07-19 09:09 | XMS REPORT ---
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 Engineer Name Role Phone FUENTES PATIÑO Unavailable PROBLEMS Type Condition ICD9-CM Code LQX26-XY Code Onset Dates Condition S tatus SNOMED Code Problem Episodic cluster headache, not intractable G44.019 Active 650269919 Problem Angina pectoris, unspecified I20.9 A ctive 258530911 Problem Acute bilateral low back pain with left-sided sciatica M54.42 Active 03167748 Problem Other chronic pain G89.29 Active 8 7745225 Problem Lumbago with sciatica, right side M54.41 Active 261171383 Problem Lumbago with sciatica, left side M54.42 Active 575809581 Problem COPD exacerbation J44.1 Active 29 9780131632289 Problem Anxiety F41.9 Active 87412677 Problem Major depressive disorder, recurrent, mild F33.0 Active 489857284 Problem History of diabetes mellitus, type II Z86.39 Active 956362217 Problem Other chronic pain G89.29 Active 8 8077261 Problem Hyperlipidemia, unspecified hyperlipidemia type E7 8.5 Active 81297701 Problem 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.0 Active 341063864 Problem Chronic obstructive pulmonary disease, unspecified COPD ty pe J44.9 Active 73021460 Problem Essential hypertension I10 Active 23956064 Problem Seasonal allergic rhinitis due to pollen J30.1 Active 69612624 Problem Atherosclerotic heart diseas e of [place] coronary artery without angina pectoris I25.10 Active 8089227803694 Problem Hypoglycemia E16.2 Active 0254115 03 Problem 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 Active 416890234822 7 Problem Primary osteoarthritis of right knee M17.11 Active 783693286506066 Problem Dysphagia, unspecified type R13.10 Ac tive 02437811 ALLERGIES No Information ENCOUNTERS Encounter Location Date Diagnosis [place] [id number] [place] [phone] 28 May, 2019 [place] [address] [address] 09 May, 2019 [place] [address] [address] 30 Apr, 2019 Dysphagia, unspecified type R13.10 ; Coronary artery disease of [place] artery of [place] heart with stable angina pectoris I25.118 and Breast cancer screening by mammogram Z12.31 [place] [address] [place] [id number] [address] [place] [phone] 10 Apr, 2019 Low back pain, unspecified b ack pain laterality, with sciatica presence unspecified M54.5 ; Onychomycosis B35.1 ; Other chronic pain G89.29 ; Chronic obstructive pulmonary disease, unspecified COPD type J44.9 ; Essential hypertension I10 ; Family history of diabetes mellitus Z83.3 ; Hyperlipidemia, unspecified hyperlipidemia type E78.5 ; Anxiety F41.9 and 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 [place] [address] [address] 06 Mar, 2019 Primary osteoarthritis of ri t knee M17.11 [place] [address] [place] [id number] [address] [place] [phone] Mar, [place] [address] [place] [id number] [place] [phone] Feb, Onychomycosis B35.1 ; Nail h ypertrophy L60.2 and Self-care deficit for grooming and hygiene Z74.1 [place] [address] [place] [id number] [place] [id number] 11 Jan, 2019 Posterior right knee pain M2 5.561 ; Pain in left leg M79.605 ; Pain in right leg M79.604 ; Coronary artery disease of [place] artery of [place] heart with stable angina pectoris I25.118 and Encounter for immunization Z23 [place] [id number] [place] [phone] Dec, Nail hypertrophy L60.2 ; Lakshmi chomycosis B35.1 and Self-care deficit for grooming and hygiene Z74.1 [place] [address] [facility] [id number] [address] [place] [phone] Oct, [facility] [address] [facility] [id number] [address] [place] [phone] Sep, Other chest pain R07.89 [facility] [address] [facility] [id number] [address] [place] [phone] Sep, [facility] [address] [facility] [id number] [address] [place] [phone] Sep, Cellulitis of groin L03.314 [place] [address] [facility] [id number] [address] [place] [phone] Sep, Nail hypertrophy L60.2 and S elf-care deficit for grooming and hygiene Z74.1 [place] [address] [facility] [id number] [address] [place] [phone] Aug, [place] [address] [facility] [id number] [place] [phone] Aug, Hypoglycemia E16.2 ; Nonintr actable episodic headache, unspecified headache type R51 and Candidiasis of breast B37.89 [place] [address] [facility] [id number] [address] [place] [phone] Aug, Nail hypertrophy L60.2 and S elf-care deficit for grooming and hygiene Z74.1 [place] [address] [facility] [id number] [address] [place] [phone] June, [facility] [address] [facility] [id number] [address] [place] [phone] May, Bee sting, accidental or uni ntentional, initial encounter T63.441A [place] [address] [facility] [id number] [address] [place] [phone] Apr, Primary osteoarthritis invol ving multiple joints M15.0 ; Angina pectoris, unspecified I20.9 ; History of diabetes mellitus, type II Z86.39 and Chronic obstructive pulmonary disease, unspecified COPD type J44.9 [facility] [address] [facility] [id number] [address] [place] [phone] Apr, Nail hypertrophy L60.2 and S [facility] deficit for grooming and hygiene Z74.1 [facility] [address] [facility] [id number] [address] [place] [phone] Mar, [facility] [address] [facility] [id number] [address] [place] [phone] Mar, Low back pain M54.5 [facility] [address] [facility] [id number] [address] [place] [phone] Mar, [facility] [address] [facility] [id number] [address] [place] [phone] Feb, [facility] [address] [place] [id number] [place] [phone] Feb, [facility] [address] [place] [id number] [place] [phone] Feb, Encounter for Medicare annua l wellness exam Z00.00 ; Major depressive disorder, recurrent, mild F33.0 ; Chronic obstructive pulmonary disease, unspecified COPD type J44.9 ; Atherosclerotic heart disease of [place] coronary artery without angina pectoris I25.10 ; Primary osteoarthritis involving multiple joints M15.0 ; Angina pectoris, unspecified I20.9 and 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 [facility] [address] [facility] [id number] [address] [place] [phone] Jan, [facility] [address] [facility] [id number] [address] [place] [phone] Jan, [facility] [address] [place] [id number] [place] [phone] Dec, Chronic obstructive pulmonar y disease, unspecified COPD type J44.9 ; Low back pain M54.5 ; Other chronic pain G89.29 and Moderate episode of recurrent major depressive disorder F33.1 [facility] [address] [place] [id number] [place] [phone] Nov, [place] [address] [place] [id number] [place] [phone] Nov, Encounter for immunization Z 23 [place] [address] [place] [id number] [place] [phone] Nov, Allergic rhinitis due to ned iona, unspecified seasonality J30.1 ; Primary osteoarthritis involving multiple joints M15.0 and Encounter for immunization Z23 [place] [address] [place] [id number] [place] [phone] Oct, Nail hypertrophy L60.2 and S elf-care deficit for hygiene R46.0 [facility] [address] [address] Oct, Chest congestion R09.89 ; So re throat J02.9 and Cough R05 [place] [address] [address] Sep, [place] [address] [phone] Aug, Low back pain M54.5 ; Other chronic pain G89.29 ; Pain in right knee M25.561 ; Pain in left knee M25.562 and Rash R21 [place] [address] [place] [id number] [place] [phone] Aug, Nail hypertrophy L60.2 and S elf-care deficit for hygiene R46.0 [place] [address] [place] [id number] [place] [phone] June, Hypertrophy of nail L60.2 an d Self-care deficit for hygiene R46.0 [place] [address] [place] [id number] [place] [phone] June, [place] [address] [facility] [id number] [address] [place] [phone] June, COPD exacerbation J44.1 [place] [address] [facility] [id number] [address] [place] [phone] May, [place] [address] [facility] [id number] [address] [place] [phone] Apr, Seasonal allergic rhinitis d ue to pollen J30.1 ; Encounter for immunization Z23 ; COPD exacerbation J44.1 ; Encounter for screening mammogram for breast cancer Z12.31 and Colon cancer screening Z12.11 [place] [address] [facility] [id number] [address] [place] [phone] Apr, [place] [address] [facility] [id number] [address] [place] [phone] Feb, Lumbago with sciatica, right side M54.41 ; Lumbago with sciatica, left side M54.42 ; Other chronic pain G89.29 ; Left hip pain M25.552 and Anxiety F41.9 [facility] [place] [address] [facility] [id number] [address] [place] [phone] Jan, History of asthma Z87.09 ; C OPD exacerbation J44.1 and Acute non-recurrent maxillary sinusitis J01.00 [place] [address] [facility] [id number] [address] [place] [phone] 20 Jan, 2017 Other chronic pain G89.29 an d Acute bilateral low back pain with left-sided sciatica M54.42 [place] [address] [facility] [id number] [address] [place] [phone] 14 Jan, 2017 Other chronic pain G89.29 an d Acute bilateral low back pain with left-sided sciatica M54.42 [place] [address] [facility] [id number] [address] [place] [phone] 08 Dec, 2016 Trochanteric bursitis of lef t hip M70.62 ; Left hip pain M25.552 and Other chronic pain G89.29 [facility] [address] [place] [id number] [place] [phone] Nov, Local reaction to insect sti ng, accidental or unintentional, initial encounter T63.481A and Acute dermatitis L30.9 [facility] [address] [place] [id number] [place] [phone] Nov, Breast cancer screening Z12. 31 [place] [address] [id number] Nov, Acute bilateral low back rangel n with left-sided sciatica M54.42 and Low back pain, unspecified back pain laterality, with sciatica presence unspecified M54.5 [facility] [address] [place] [id number] [place] [phone] Oct, Acute bilateral low back rangel n with left-sided sciatica M54.42 [place] [address] [address] Sep, Low back pain, unspecified b ack pain laterality, with sciatica presence unspecified M54.5 [place] [address] [place] [phone] Sep, [place] [address] [address] Aug, Nail hypertrophy L60.2 ; Lakshmi chomycosis B35.1 and Self-care deficit for hygiene R46.0 [place] [address] [place] [phone] Aug, [place] [address] [place] [phone] Aug, [facility] [address] [place] [id number] [place] [phone] Jul, Rash R21 [place] [address] [place] [id number] [place] [phone] Jul, [place] [address] [place] [address] Jul, Low back pain, unspecified b ack pain laterality, with sciatica presence unspecified M54.5 [facility] [address] [id number] [address] [place] [phone] June, Nail hypertrophy L60.2 ; Marilee f-care deficit for hygiene R46.0 and Other chronic pain G89.29 [facility] [address] [id number] [address] [place] [phone] June, Low back pain, unspecified b ack pain laterality, with sciatica presence unspecified M54.5 [place] [address] [id number] [address] [place] [phone] May, [facility] [address] [id number] [address] [place] [phone] May, [place] [address] [id number] [address] [place] [phone] May, [facility] [address] [id number] [address] [place] [phone] May, Low back pain, unspecified b ack pain laterality, with sciatica presence unspecified M54.5 [facility] [address] [id number] [address] [place] [phone] Apr, Breast pain, left N64.4 ; Le ft arm pain M79.602 and Family history of diabetes mellitus Z83.3 [facility] [address] [id number] [address] [place] [phone] Apr, Low back pain, unspecified b ack pain laterality, with sciatica presence unspecified M54.5 [facility] [address] [id number] [address] [place] [phone] Apr, [facility] [address] [id number] [address] [place] [phone] Mar, Onychomycosis B35.1 and Self -care deficit for hygiene R46.0 [facility] [address] [id number] [address] [place] [id number] 17 Mar, 2016 Low back pain, unspecified b ack pain laterality, with sciatica presence unspecified M54.5 [facility] [address] [id number] [address] [place] [phone] 14 Mar, 2016 Pain in left shoulder M25.51 2 and Other chronic pain G89.29 [facility] [address] [id number] [address] [place] [phone] 13 Mar, 2016 Arthralgia, unspecified join t M25.50 [facility] [address] [id number] [address] [place] [phone] 06 Mar, 2016 [facility] [address] [id number] [address] [place] [phone] Feb, Low back pain, unspecified b ack pain laterality, with sciatica presence unspecified M54.5 [facility] [address] [id number] [address] [place] [phone] 12 Feb, 2016 [facility] [address] [place] [id number] Feb, Dental examination Z01.20 [facility] [id number] [place] [address] [id number] Feb, Dental examination Z01.20 [facility] [address] [id number] [address] [place] [phone] Feb, Cramp of both lower extremit ies R25.2 [facility] [address] [id number] [address] [place] [phone] Feb, [facility] [address] [facility] [id number] [address] [place] [phone] Jan, Hypoxemia R09.02 ; Episodic cluster headache, not intractable G44.019 and Cramp of both lower extremities R25.2 [facility] [address] [id number] [address] [place] [phone] Jan, [facility] [address] [id number] [address] [place] [phone] Jan, Low back pain, unspecified b ack pain laterality, with sciatica presence unspecified M54.5 [facility] [address] [id number] [address] [place] [phone] Jan, Hypertrophy of nail L60.2 ; Onychomycosis B35.1 and Self-care deficit for hygiene R46.0 [facility] [address] [id number] [address] [place] [phone] Jan, Low back pain, unspecified b ack pain laterality, with sciatica presence unspecified M54.5 [facility] [address] [facility] [id number] [address] [place] [phone] Dec, Low back pain, unspecified b ack pain laterality, with sciatica presence unspecified M54.5 [facility] [address] [facility] [id number] [address] [place] [phone] Dec, Bug bite with infection, ini tial encounter W57.XXXA [place] [address] [facility] [facility] [id number] [address] [place] [phone] Nov, Low back pain, unspecified b ack pain laterality, with sciatica presence unspecified M54.5 [place] [address] [facility] [id number] [address] [place] [phone] Nov, [facility] [address] [facility] [id number] [address] [place] [phone] Nov, Chronic obstructive pulmonar y disease, unspecified COPD type J44.9 [facility] [address] [facility] [id number] [address] [place] [phone] Nov, [place] [address] [facility] [id number] [address] [place] [phone] 14 Oct, 2015 [place] [address] [facility] [id number] [address] [place] [phone] Oct, Onychomycosis B35.1 and Ingr own nail L60.0 [facility] [address] [id number] [address] [place] [phone] Oct, Low back pain, unspecified b ack pain laterality, with sciatica presence unspecified M54.5 [facility] [address] [id number] [address] [place] [phone] Sep, [facility] [address] [id number] [address] [place] [phone] Sep, Low back pain, unspecified b ack pain laterality, with sciatica presence unspecified M54.5 [place] [address] [id number] [address] [place] [phone] Aug, [place] [address] [id number] [address] [place] [phone] Aug, Cramp of both lower extremit ies R25.2 ; Breast cancer screening Z12.39 ; Hyperlipidemia, unspecified hyperlipidemia type E78.5 and Atypical mole L81.9 [place] [address] [id number] [address] [place] [phone] Aug, Chronic obstructive pulmonar y disease, unspecified COPD type J44.9 [facility] [address] [id number] [address] [place] [phone] Aug, Low back pain, unspecified b ack pain laterality, with sciatica presence unspecified M54.5 [facility] [address] [id number] [address] [place] [phone] Aug, Atherosclerotic heart diseas e of [place] coronary artery without angina pectoris I25.10 [facility] [address] [id number] [address] [place] [phone] Jul, [facility] [address] [id number] [address] [place] [phone] Jul, [facility] [address] [id number] [address] [place] [phone] 13 Jul, 2015 Allergic rhinitis, unspecifi ed allergic rhinitis type J30.9 [facility] [address] [id number] [address] [place] [phone] Jul, Low back pain, unspecified b ack pain laterality, with sciatica presence unspecified M54.5 [place] [address] [facility] [id number] [address] [place] [phone] 07 Jul, 2015 Post-concussion headache G44 .309 and Arthralgia, unspecified joint M25.50 [place] [address] [id number] [address] [place] [phone] June, Chronic obstructive pulmonar y disease, unspecified COPD type J44.9 [place] [address] [facility] [id number] [address] [place] [phone] June, [place] [address] [facility] [id number] [address] [place] [phone] May, [place] [address] [facility] [id number] [address] [place] [phone] May, [place] [address] [facility] [id number] [address] [place] [phone] 30 Apr, 2015 Hip pain 719.45 and Atherosc lerotic heart disease of [place] coronary artery without angina pectoris I25.10 [place] [address] [facility] [id number] [address] [place] [phone] Apr, History of self-care deficit Z86.59 ; Hypertrophy of nail L60.2 and Onychomycosis B35.1 [place] [address] [facility] [id number] [address] [place] [phone] Apr, [place] [address] [place] [id number] [place] [phone] Apr, Gastroenteritis K52.9 [place] [address] [facility] [id number] [address] [place] [id number] Mar, [place] [id number] [id number] [address] [place] [phone] Mar, [facility] [address] [id number] [address] [place] [phone] Mar, [facility] [address] [id number] [address] [place] [id number] Mar, Acute pain due to injury G89 .11 and Other chronic pain G89.29 [facility] [address] [id number] [address] [place] [phone] Mar, [facility] [address] [id number] [address] [place] [id number] Mar, [facility] [address] [id number] [address] [place] [phone] Mar, [facility] [address] [id number] [address] [place] [phone] Mar, [facility] [address] [id number] [address] [place] [phone] Feb, Low back pain, unspecified b ack pain laterality, with sciatica presence unspecified M54.5 [facility] [address] [id number] [address] [place] [phone] Feb, [facility] [address] [id number] [address] [place] [phone] Jan, [facility] [address] [id number] [address] [place] [id number] Jan, Low back pain, unspecified b ack pain laterality, with sciatica presence unspecified M54.5 [facility] [address] [id number] [address] [place] [phone] Jan, Other chronic pain G89.29 an d Acute pain due to injury G89.11 [facility] [address] [id number] [address] [place] [id number] Dec, [facility] [address] [id number] [address] [place] [id number] Nov, Essential hypertension I10 a nd Viral infection, unspecified B34.9 [facility] [address] [id number] [address] [place] [phone] Nov, [facility] [address] [facility] [id number] [address] [place] [phone] Nov, [facility] [address] [facility] [id number] [address] [place] [phone] Oct, [facility] [address] [id number] [address] [place] [phone] Oct, [facility] [address] [facility] [id number] [address] [place] [phone] Oct, [facility] [address] [facility] [id number] [address] [place] [phone] Oct, [facility] [address] [facility] [id number] [address] [place] [phone] Sep, [facility] [address] [facility] [id number] [address] [place] [id number] Sep, Hypertrophy of nail 703.8 an d Self-care deficit for hygiene V40.39 [facility] [address] [facility] [id number] [address] [place] [phone] Sep, [facility] [address] [facility] [id number] [address] [place] [phone] Sep, [facility] [address] [facility] [id number] [address] [place] [phone] Aug, [facility] [address] [facility] [id number] [address] [place] [id number] Jul, Onychomycosis 110.1 and Ingr own nail 703.0 [facility] [address] [facility] [id number] [address] [place] [address] Jul, Other screening mammogram V7 6.12 [facility] [address] [id number] [address] [place] [phone] Jul, [facility] [address] [id number] [address] [place] [address] Jul, Hip pain 719.45 ; Visual dis turbance 368.9 and Conjunctivitis 372.30 [facility] [address] [id number] [address] [place] [phone] June, [facility] [address] [id number] [address] [place] [phone] June, [facility] [address] [id number] [address] [place] [phone] June, [facility] [address] [id number] [address] [place] [phone] June, [facility] [address] [id number] [address] [place] [phone] May, [facility] [address] [id number] [address] [place] [phone] May, [facility] [address] [id number] [address] [place] [phone] Apr, [facility] [address] [id number] [address] [place] [phone] Apr, [facility] [address] [id number] [address] [place] [phone] Apr, [facility] [address] [id number] [address] [place] [phone] Apr, [facility] [address] [id number] [address] [place] [phone] Mar, [facility] [address] [id number] [address] [place] [phone] Mar, [facility] [address] [id number] [address] [place] [phone] Feb, [facility] [address] [id number] [address] [place] [address], [place] [address] Feb, [facility] [address] [id number] [address] [place] [address], [place] [address] Feb, [facility] [address] [id number] [address] [place] [address], [place] [address] Jan, [facility] [address] [id number] [address] [place] [address], [place] [address] Jan, [facility] [address] [id number] [address] [place] [address], [place] [address] Jan, [facility] [address] [id number] [address] [place] [address], [place] [address] Jan, [facility] [address] [id number] [address] [place] [address], [place] [address] Jan, [facility] [address] [id number] [address] [place] [address], [place] [address] Jan, [facility] [address] [id number] [address] [place] [address], [place] [address] Dec, [facility] [address] [id number] [address] [place] [address], [place] [address] Nov, [facility] [address] [id number] [address] [place] [address], [place] [address] Nov, [facility] [address] [id number] [address] [place] [phone] Nov, [facility] [address] [id number] [address] [place] [address], [place] [address] Nov, [facility] [address] [id number] [address] [place] [address], [place] [address] Nov, [facility] [address] [id number] [address] [place] [address], [place] [address] Nov, [facility] [address] [id number] [address] [place] [address], [place] [address] Nov, [facility] [address] [id number] [address] [place] [address], [place] [address] Nov, [facility] [address] [id number] [address] [place] [address], [place] [address] Nov, [facility] [address] [id number] [address] [place] [address], [place] [address] Nov, [facility] [address] [id number] [address] [place] [address], [place] [address] Oct, [facility] [address] [id number] [address] [place] [address], [place] [address] Oct, [facility] [address] [id number] [address] [place] [address], [place] [address] Oct, [facility] [address] [id number] [address] [place] [address], [place] [address] Oct, [facility] [address] [id number] [address] [place] [address], [place] [address] 15 Oct, 2013 [facility] [address] [id number] [address] [place] [address], [place] [address] 15 Oct, 2013 [facility] [address] [id number] [address] [place] [address], [place] [address] Oct, [facility] [address] [id number] [address] [place] [address], [place] [address] Oct, [facility] [address] [id number] [address] [place] [address], [place] [address] Sep, [facility] [address] [id number] [address] [place] [address], [place] [address] Sep, [facility] [address] [id number] [address] [place] [address], [place] [address] Sep, [facility] [address] [id number] [address] [place] [address], [place] [address] Sep, [facility] [address] [id number] [facility] [address] Aug, [facility] [address] [id number] [facility] [address] Aug, [facility] [address] [id number] [facility] [address] Aug, [facility] [address] [id number] [address] [place] [address], [place] [address] Aug, [facility] [address] [id number] [address] [place] [address], [place] [address] Aug, [facility] [address] [id number] [address] [place] [address], [place] [address] Aug, [facility] [address] [id number] [address] [place] [address], [place] [address] Aug, [facility] [address] [id number] [address] [place] [address], [place] [address] Aug, [facility] [address] [id number] [address] [place] [address], [place] [address] Jul, [facility] [address] [id number] [address] [place] [address], [place] [address] Jul, [facility] [address] [id number] [address] [place] [address], [place] [address] Jul, [facility] [address] [id number] [address] [place] [address], [place] [address] Jul, [facility] [address] [id number] [address] [place] [address], [place] [address] Jul, [facility] [address] [id number] [address] [place] [address], [place] [address] Jul, [facility] [address] [id number] [address] [place] [address], [place] [address] Jul, [facility] [address] [id number] [address] [place] [address], [place] [address] Jul, [facility] [address] [id number] [address] [place] [address], [place] [address] Jul, [facility] [address] [id number] [address] [place] [address], [place] [address] Jul, [facility] [address] [id number] [address] [place] [address], [place] [address] Jul, [facility] [address] [id number] [address] [place] [address], [place] [address] Jul, [facility] [address] [id number] [address] [place] [address], [place] [address] Jul, [facility] [address] [id number] [address] [place] [address], [place] [address] Jul, [facility] [address] [id number] [address] [place] [address], [place] [address] Jul, [facility] [address] [id number] [address] [place] [address], [place] [address] Jul, [facility] [address] [id number] [address] [place] [address], [place] [address] Jul, [facility] [address] [id number] [address] [place] [address], [place] [address] June, [facility] [address] [id number] [address] [place] [address], [place] [address] June, [facility] [address] [id number] [address] [place] [address], [place] [address] May, [facility] [address] [id number] [address] [place] [address], [place] [address] May, [facility] [address] [id number] [address] [place] [address], [place] [address] May, [facility] [address] [id number] [address] [place] [address], [place] [address] May, [facility] [address] [id number] [facility] [address] 17 Apr, 2013 [facility] [address] [id number] [address] [place] [address], [place] [address] 17 Apr, 2013 [facility] [address] [id number] [facility] [address] 13 Apr, 2013 [facility] [address] [id number] [address] [place] [address], [place] [address] 13 Apr, 2013 [facility] [address] [id number] [address] [place] [address], [place] [address] 11 Apr, 2013 [facility] [address] [id number] [address] [place] [address], [place] [address] 11 Apr, 2013 [facility] [address] [id number] [address] [place] [address], [place] [address] 10 Apr, 2013 [facility] [address] [id number] [address] [place] [address], [place] [address] 13 Mar, 2013 [facility] [address] [id number] [address] [place] [address], [place] [address] 13 Mar, 2013 [facility] [address] [id number] [address] [place] [address], [place] [address] 11 Mar, 2013 [facility] [address] [id number] [address] [place] [address], [place] [address] 11 Mar, 2013 [facility] [address] [id number] [address] [place] [address], [place] [address] Feb, [facility] [address] [id number] [address] [place] [address], [place] [address] Feb, [facility] [address] [id number] [address] [place] [address], [place] [address] Feb, [facility] [address] [id number] [address] [place] [address], [place] [address] Feb, [facility] [address] [id number] [address] [place] [address], [place] [address] Jan, [facility] [address] [id number] [address] [place] [address], [place] [address] Jan, [facility] [address] [id number] [address] [place] [address], [place] [address] Jan, [facility] [address] [id number] [address] [place] [address], [place] [address] Jan, [facility] [address] [id number] [address] [place] [address], [place] [address] Dec, [facility] [address] [id number] [address] [place] [address], [place] [address] Dec, [facility] [address] [id number] [address] [place] [address], [place] [address] Dec, [facility] [address] [id number] [address] [place] [address], [place] [address] Dec, [facility] [address] [id number] [address] [place] [address] Dec, [facility] [address] [id number] [address] [place] [address], [place] [address] Nov, [facility] [address] [id number] [address] [place] [address] Nov, [facility] [address] [id number] [address] [place] [id number] Nov, [facility] [address] [id number] [address] [place] [address] Nov, [facility] [address] [id number] [address] [place] [address], [place] [address] Nov, [facility] [address] [id number] [address] [place] [address] Nov, [facility] [address] [id number] [address] [place] [address] Nov, [facility] [address] [id number] [address] [place] [address], [place] [address] Nov, [facility] [address] [id number] [address] [place] [address], [place] [address] Oct, [facility] [address] [id number] [address] [place] [address], [place] [address] Oct, [facility] [address] [id number] [address] [place] [address], [place] [address] Sep, [facility] [address] [id number] [address] [place] [address], [place] [address] Sep, [facility] [address] [id number] [address] [place] [address], [place] [address] Sep, [facility] [address] [id number] [address] [place] [address], [place] [address] Sep, [facility] [address] [id number] [address] [place] [address], [place] [address] Sep, [facility] [address] [id number] [address] [place] [address], [place] [address] Sep, [facility] [address] [id number] [address] [place] [address], [place] [address] Sep, [facility] [address] [id number] [address] [place] [address], [place] [address] Aug, [facility] [address] [id number] [address] [place] [address], [place] [address] Aug, [facility] [address] [id number] [address] [place] [address], [place] [address] Aug, [facility] [address] [id number] [address] [place] [address], [place] [address] Aug, [facility] [address] [id number] [address] [place] [address], [place] [address] Aug, [facility] [address] [id number] [address] [place] [address], [place] [address] Aug, [facility] [address] [id number] [address] [place] [address], [place] [address] 05 Aug, 2012 [facility] [address] [id number] [address] [place] [address], [place] [address] Aug, [facility] [address] [id number] [address] [place] [address], [place] [address] Jul, [facility] [address] [id number] [address] [place] [address], [place] [address] Jul, [facility] [address] [id number] [address] [place] [address], [place] [address] Jul, [facility] [address] [id number] [address] [place] [address], [place] [address] Jul, [facility] [address] [id number] [address] [place] [address], [place] [address] June, [facility] [address] [id number] [address] [place] [address], [place] [address] June, [facility] [address] [id number] [address] [place] [address], [place] [address] June, [facility] [address] [id number] [address] [place] [address], [place] [address] June, [facility] [address] [id number] [address] [place] [address], [place] [address] June, [facility] [address] [id number] [address] [place] [address], [place] [address] May, [facility] [address] [id number] [address] [place] [address], [place] [address] May, [facility] [address] [id number] [address] [place] [address], [place] [address] 16 May, 2012 [facility] [address] [id number] [address] [place] [address], [place] [address] 04 May, 2012 [facility] [address] [id number] [address] [place] [address], [place] [address] 26 Apr, 2012 [facility] [address] [id number] [address] [place] [address], [place] [address] 25 Apr, 2012 [facility] [address] [id number] [address] [place] [address], [place] [address] 08 Apr, 2012 [facility] [address] [id number] [address] [place] [address], [place] [address] 07 Apr, 2012 [facility] [address] [id number] [address] [place] [address], [place] [address] 21 Mar, 2012 [facility] [address] [id number] [address] [place] [address], [place] [address] 15 Mar, 2012 [facility] [address] [id number] [address] [place] [address], [place] [address] 13 Mar, 2012 [facility] [address] [id number] [address] [place] [address], [place] [address] 07 Mar, 2012 [facility] [address] [id number] [address] [place] [address], [place] [address] Feb, [facility] [address] [id number] [address] [place] [address], [place] [address] Jan, [facility] [address] [id number] [address] [place] [address], [place] [address] Jan, [facility] [address] [id number] [address] [place] [address], [place] [address] Jan, [facility] [address] [id number] [address] [place] [address], [place] [address] Dec, [facility] [address] [id number] [address] [place] [address], [place] [address] Dec, [facility] [address] [id number] [address] [place] [address], [place] [address] Dec, [facility] [address] [id number] [address] [place] [address], [place] [address] Dec, [facility] [address] [id number] [address] [place] [address], [place] [address] 15 Dec, 2011 [facility] [address] [id number] [address] [place] [address], [place] [address] 15 Dec, 2011 [facility] [address] [id number] [address] [place] [address], [place] [address] 14 Dec, 2011 [facility] [address] [id number] [address] [place] [address], [place] [address] 07 Dec, 2011 [facility] [address] [id number] [address] [place] [address], [place] [address] 07 Dec, 2011 [facility] [address] [id number] [address] [place] [address], [place] [address] 17 Nov, 2011 [facility] [address] [id number] [address] [place] [address], [place] [address] 17 Nov, 2011 [facility] [address] [id number] [address] [place] [address], [place] [address] Nov, [facility] [address] [id number] [address] [place] [address], [place] [address] 12 Nov, 2011 [facility] [address] [id number] [address] [place] [address], [place] [address] 10 Nov, 2011 [facility] [address] [id number] [address] [place] [address], [place] [address] 10 Nov, 2011 [facility] [address] [id number] [address] [place] [address], [place] [address] Oct, [facility] [address] [id number] [address] [place] [address], [place] [address] 16 Sep, 2011 [facility] [address] [id number] [address] [place] [address], [place] [address] Sep, [facility] [address] [id number] [address] [place] [address], [place] [address] Aug, [facility] [address] [id number] [address] [place] [address], [place] [address] Aug, [facility] [address] [id number] [address] [place] [address], [place] [address] Aug, [facility] [address] [id number] [address] [place] [address], [place] [address] Aug, [facility] [address] [id number] [address] [place] [address], [place] [address] Aug, [facility] [address] [id number] [address] [place] [address], [place] [address] Jul, [facility] [address] [id number] [address] [place] [address], [place] [address] Jul, [facility] [address] [id number] [address] [place] [address], [place] [address] June, [facility] [address] [id number] [address] [place] [address], [place] [address] June, [facility] [address] [id number] [address] [place] [address], [place] [address] June, [facility] [address] [id number] [address] [place] [address], [place] [address] June, [facility] [address] [id number] [address] [place] [address], [place] [address] May, [facility] [address] [id number] [address] [place] [address], [place] [address] Apr, [facility] [address] [id number] [address] [place] [address], [place] [address] Apr, [facility] [address] [id number] [address] [place] [address], [place] [address] 15 Apr, 2011 [facility] [address] [id number] [address] [place] [place] [address], [place] [address] 08 Apr, 2011 [facility] [address] [id number] [address] [place] [address], [place] [address] 05 Apr, 2011 [facility] [address] [id number] [address] [place] [address], [place] [address] 29 Mar, 2011 [facility] [address] [id number] [address] [place] [address], [place] [address] Mar, [facility] [address] [id number] [address] [place] [address], [place] [address] 04 Mar, 2011 [facility] [address] [id number] [address] [place] [address], [place] [address] Feb, [facility] [address] [id number] [address] [place] [address], [place] [address] Feb, [facility] [address] [id number] [address] [place] [address], [place] [address] Feb, [facility] [address] [id number] [address] [place] [address], [place] [address] Feb, [facility] [address] [id number] [address] [place] [address], [place] [address] Feb, [facility] [address] [id number] [address] [place] [address], [place] [address] Feb, [facility] [address] [id number] [address] [place] [address], [place] [address] Jan, [facility] [place] [address] [id number] [address] [place] [address], [place] [address] Jan, [facility] [address] [id number] [address] [place] [address], [place] [address] Jan, [facility] [address] [id number] [address] [place] [address], [place] [address] Jan, [facility] [address] [id number] [address] [place] [address], [place] [address] Jan, [facility] [address] [id number] [address] [place] [address], [place] [address] Jul, [facility] [address] [id number] [address] [place] [address], [place] [address] June, [facility] [address] [id number] [address] [place] [phone] 13 Feb, 2010 [facility] [address] [id number] [address] [place] [phone] Jan, [facility] [address] [id number] [address] [place] [phone] Sep, [facility] [address] [id number] [address] [place] [phone] Aug, [facility] [address] [id number] [address] [place] [phone] May, [facility] [address] [id number] [address] [place] [phone] Apr, [facility] [address] [id number] [address] [place] [phone] Jan, [facility] [address] [id number] [address] [place] [phone] Jan, [facility] [address] [id number] [address] [place] [phone] Jan, [facility] [address] [id number] [address] [place] [phone] Dec, [facility] [address] [id number] [address] [place] [phone] Dec, [facility] [address] [id number] [address] [place] [phone] Nov, [facility] [address] [id number] [address] [place] [phone] Nov, [facility] [address] [id number] [address] [place] [phone] Nov, IMMUNIZATIONS No Known Immunizations SOCIAL HISTORY [...] Surgical History rectocele/cystocele repair, pessary fitt ed ([facility]) 05/2013 Surgical History Suspicious lesion removal 2015 Surgical History heart cath 03/03/2019 Hospitalization History [facility] acute gastoentereritis, dehydrati on 06/06 Hospitalization History Heart Cath 2013 Hospitalization History ER visit- 09/2018
--- OUTSIDE RECORDS SUMMARY | 2019-07-19 09:10 | XMS REPORT ---
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 Active 8669465557182 Problem Other chronic pain G89.29 Active 8 9217873 Problem Episodic cluster headache, not intractable G44.019 Active 960893444 Problem Lumbago with sciatica, left side M54.42 Active 446282850 Problem Acute bilateral low back pain with left-sided sciatica M54.42 Active 82186923 Problem Anxiety F41.9 Active 32620550 Problem Lumbago with sciatica, right side M54.41 Active 746964484 Problem 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.0 Active 887880125 Problem Major depressive disorder, recurrent, mild F33.0 Active 733879673 Problem History of diabetes mellitus, type II Z86.39 Active 488770359 Problem Hyperlipidemia, unspecified hyperlipidemia type E7 8.5 Active 01768516 Problem Seasonal allergic rhinitis due to pollen J30.1 Active 97601469 Problem Essential hypertension I10 Active 69886654 Problem COPD exacerbation J44.1 Active 29 8989730139144 Problem Chronic obstructive pulmonary disease, unspecified COPD ty pe J44.9 Active 47351637 Problem Other chronic pain G89.29 Active 8 2173026 Problem Hypoglycemia E16.2 Active 6198439 03 Problem 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.118 [place] [address] [address] [place] [id number] [address] [place] [id number] 10 Apr, 2019 Low back pain, unspecified b ack pain laterality, with sciatica presence unspecified M54.5 ; Onychomycosis B35.1 ; Other chronic pain G89.29 ; Chronic obstructive pulmonary disease, unspecified COPD type J44.9 ; Essential hypertension I10 ; Family history of diabetes mellitus Z83.3 ; Hyperlipidemia, unspecified hyperlipidemia type E78.5 ; Anxiety F41.9 and 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 [place] [address] [address] Mar, Primary osteoarthritis of ri t knee M17.[address] [address] Mar, [place] [address] [address] [place] [id number] [address] [place] [id number] Feb, Onychomycosis B35.1 ; Nail h ypertrophy L60.2 and Self-care deficit for grooming and hygiene Z74.1 [place] [address] [place] [id number] [address] [place] [id number] Jan, Posterior right knee pain M2 5.561 ; Pain in left leg M79.605 ; Pain in right leg M79.604 ; 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.118 and Encounter for immunization Z23 [place] [address] [address] Dec, Nail hypertrophy L60.2 ; Lakshmi chomycosis B35.1 and Self-care deficit for grooming and hygiene Z74.1 [place] [address] [place] [id number] [address] [place] [id number] Oct, [place] [address] [address] Sep, Other chest pain R07.89 [place] [address] [address] Sep, [facility] [address] [address] Sep, Cellulitis of groin L03.314 [place] [address] [address] Sep, Nail hypertrophy L60.2 and S elf-care deficit for grooming and hygiene Z74.1 [place] [address] [address] Aug, [place] [address] [address] Aug, Hypoglycemia E16.2 ; Nonintr actable episodic headache, unspecified headache type R51 and Candidiasis of breast B37.89 [place] [address] [address] Aug, Nail hypertrophy L60.2 and S elf-care deficit for grooming and hygiene Z74.1 [place] [address] [address] June, [facility] [address] [address] May, Bee sting, accidental or uni ntentional, initial encounter T63.441A [place] [address] [address] Apr, Primary osteoarthritis invol ving multiple joints M15.0 ; Angina pectoris, unspecified I20.9 ; History of diabetes mellitus, type II Z86.39 and Chronic obstructive pulmonary disease, unspecified COPD type J44.9 [place] [address] [address] Apr, Nail hypertrophy L60.2 and S elf-care deficit for grooming and hygiene Z74.1 [facility] [address] [id number] [address] [place] [id number] Mar, [facility] [address] [facility] [id number] [address] [place] [id number] 13 Mar, 2018 Low back pain M54.5 [facility] [address] [facility] [id number] [address] [place] [id number] Mar, [facility] [address] [id number] [address] [place] [id number] Feb, [facility] [address] [facility] [id number] [address] [place] [id number] Feb, [facility] [address] [facility] [id number] [address] [place] [id number] Feb, Encounter for Medicare [facility] wellness exam Z00.00 ; Major depressive disorder, recurrent, mild F33.0 ; Chronic obstructive pulmonary disease, unspecified COPD type J44.9 ; 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 ; Primary osteoarthritis involving multiple joints M15.0 ; Angina pectoris, unspecified I20.9 and 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 [facility] [address] [facility] [id number] [address] [place] [id number] Jan, [facility] [address] [facility] [id number] [address] [place] [id number] Jan, [facility] [address] [facility] [id number] [address] [place] [id number] Dec, Chronic obstructive pulmonar y disease, unspecified COPD type J44.9 ; Low back pain M54.5 ; Other chronic pain G89.29 and Moderate episode of recurrent major depressive disorder F33.1 [facility] [address] [facility] [id number] [address] [place] [id number] Nov, [facility] [address] [facility] [id number] [address] [place] [id number] Nov, Encounter for immunization Z 23 [facility] [address] [id number] [address] [place] [id number] Nov, Allergic rhinitis due to ned iona, unspecified seasonality J30.1 ; Primary osteoarthritis involving multiple joints M15.0 and Encounter for immunization Z23 [facility] [address] [id number] [address] [place] [id number] Oct, Nail hypertrophy L60.2 and S elf-care deficit for hygiene R46.0 [facility] [address] [id number] [address] [place] [id number] 05 Oct, 2017 Chest congestion R09.89 ; So re throat J02.9 and Cough R05 [facility] [address] [id number] [address] [place] [id number] Sep, [facility] [address] [id number] [address] [place] [id number] Aug, Low back pain M54.5 ; Other chronic pain G89.29 ; Pain in right knee M25.561 ; Pain in left knee M25.562 and Rash R21 [facility] [address] [id number] [address] [place] [id number] Aug, Nail hypertrophy L60.2 and S elf-care deficit for hygiene R46.0 [facility] [address] [id number] [address] [place] [id number] June, Hypertrophy of nail L60.2 an d Self-care deficit for hygiene R46.0 [facility] [address] [id number] [address] [place] [id number] June, [facility] [address] [facility] [id number] [address] [place] [id number] June, COPD exacerbation J44.1 [facility] [address] [facility] [id number] [address] [place] [id number] May, [facility] [address] [facility] [id number] [address] [place] [id number] Apr, Seasonal allergic rhinitis d ue to pollen J30.1 ; Encounter for immunization Z23 ; COPD exacerbation J44.1 ; Encounter for screening mammogram for breast cancer Z12.31 and Colon cancer screening Z12.11 [place] [address] [address] Apr, [place] [address] [address] Feb, Lumbago with sciatica, right side M54.41 ; Lumbago with sciatica, left side M54.42 ; Other chronic pain G89.29 ; Left hip pain M25.552 and Anxiety F41.9 [facility] [place] [address] [address] 20 Jan, 2017 History of asthma Z87.09 ; C OPD exacerbation J44.1 and Acute non-recurrent maxillary sinusitis J01.00 [place] [address] [address] 20 Jan, 2017 Other chronic pain G89.29 an d Acute bilateral low back pain with left-sided sciatica M54.42 [place] [address] [address] 14 Jan, 2017 Other chronic pain G89.29 an d Acute bilateral low back pain with left-sided sciatica M54.42 [place] [address] [address] 08 Dec, 2016 Trochanteric bursitis of lef t hip M70.62 ; Left hip pain M25.552 and Other chronic pain G89.29 [facility] [address] [id number] 27 Nov, 2016 Local reaction to insect sti ng, accidental or unintentional, initial encounter T63.481A and Acute dermatitis L30.9 [place] [address] [address] 18 Nov, 2016 Breast cancer screening Z12. 31 [facility] [address] [id number] [address] [place] [id number] Nov, Acute bilateral low back rangel n with left-sided sciatica M54.42 and Low back pain, unspecified back pain laterality, with sciatica presence unspecified M54.5 [facility] [address] [id number] [address] [place] [id number] Oct, Acute bilateral low back rangel n with left-sided sciatica M54.42 [facility] [address] [id number] [address] [place] [id number] Sep, Low back pain, unspecified b ack pain laterality, with sciatica presence unspecified M54.5 [place] [id number] [id number] [address] [place] [id number] Sep, [place] [address] [id number] [address] [place] [id number] Aug, Nail hypertrophy L60.2 ; Lakshmi chomycosis B35.1 and Self-care deficit for hygiene R46.0 [place] [address] [id number] [address] [place] [id number] Aug, [facility] [address] [id number] [address] [place] [id number] Aug, [facility] [address] [id number] [address] [place] [id number] Jul, Rash R21 [facility] [address] [id number] [address] [place] [id number] Jul, [place] [address] [id number] [address] [place] [id number] Jul, Low back pain, unspecified b ack pain laterality, with sciatica presence unspecified M54.5 [place] [address] [id number] [address] [place] [id number] June, Nail hypertrophy L60.2 ; Marilee f-care deficit for hygiene R46.0 and Other chronic pain G89.29 [facility] [address] [id number] [address] [place] [id number] June, Low back pain, unspecified b ack pain laterality, with sciatica presence unspecified M54.5 [facility] [address] [id number] [address] [place] [id number] May, [facility] [address] [id number] [address] [place] [id number] May, [facility] [address] [id number] [address] [place] [id number] May, [facility] [address] [id number] [address] [place] [id number] May, Low back pain, unspecified b ack pain laterality, with sciatica presence unspecified M54.5 [facility] [address] [id number] [address] [place] [id number] Apr, Breast pain, left N64.4 ; Le ft arm pain M79.602 and Family history of diabetes mellitus Z83.3 [facility] [address] [id number] [address] [place] [id number] Apr, Low back pain, unspecified b ack pain laterality, with sciatica presence unspecified M54.5 [place] [address] [id number] [address] [place] [id number] Apr, [facility] [address] [id number] [address] [place] [id number] Mar, Onychomycosis B35.1 and Self -care deficit for hygiene R46.0 [facility] [address] [id number] [address] [place] [id number] 17 Mar, 2016 Low back pain, unspecified b ack pain laterality, with sciatica presence unspecified M54.5 [facility] [address] [id number] [address] [place] [id number] Mar, Pain in left shoulder M25.51 2 and Other chronic pain G89.29 [facility] [address] [id number] [address] [place] [id number] 13 Mar, 2016 Arthralgia, unspecified join t M25.50 [facility] [address] [id number] [address] [place] [id number] 06 Mar, 2016 [facility] [address] [id number] [address] [place] [id number] Feb, Low back pain, unspecified b ack pain laterality, with sciatica presence unspecified M54.5 [facility] [address] [id number] [address] [place] [id number] Feb, [facility] [address] [id number] [place] [id number] Feb, Dental examination Z01.20 [facility] [address] [id number] [place] [id number] Feb, Dental examination Z01.20 [facility] [address] [id number] [address] [place] [id number] Feb, Cramp of both lower extremit ies R25.2 [facility] [address] [id number] [address] [place] [id number] Feb, [facility] [address] [id number] [address] [place] [id number] Jan, Hypoxemia R09.02 ; Episodic cluster headache, not intractable G44.019 and Cramp of both lower extremities R25.2 [facility] [address] [id number] [address] [place] [id number] Jan, [facility] [address] [id number] [address] [place] [id number] Jan, Low back pain, unspecified b ack pain laterality, with sciatica presence unspecified M54.5 [facility] [address] [id number] [address] [place] [id number] Jan, Hypertrophy of nail L60.2 ; Onychomycosis B35.1 and Self-care deficit for hygiene R46.0 [place] [address] [facility] [id number] [address] [place] [id number] Jan, Low back pain, unspecified b ack pain laterality, with sciatica presence unspecified M54.5 [place] [address] [place] [id number] [address] [place] [id number] Dec, Low back pain, unspecified b ack pain laterality, with sciatica presence unspecified M54.5 [facility] [address] [facility] [id number] [address] [place] [id number] Dec, Bug bite with infection, ini tial encounter W57.XXXA [place] [address] [place] [id number] [address] [place] [id number] Nov, Low back pain, unspecified b ack pain laterality, with sciatica presence unspecified M54.5 [place] [address] [facility] [id number] [address] [place] [id number] Nov, [place] [address] [facility] [id number] [address] [place] [id number] Nov, Chronic obstructive pulmonar y disease, unspecified COPD type J44.9 [place] [address] [facility] [id number] [address] [place] [id number] Nov, [place] [address] [facility] [id number] [address] [place] [id number] 14 Oct, 2015 [place] [address] [id number] [address] [place] [id number] 08 Oct, 2015 Onychomycosis B35.1 and Ingr own nail L60.0 [place] [address] [id number] [address] [place] [id number] 02 Oct, 2015 Low back pain, unspecified b ack pain laterality, with sciatica presence unspecified M54.5 [place] [address] [id number] [address] [place] [id number] Sep, [facility] [address] [facility] [id number] [address] [place] [id number] Sep, Low back pain, unspecified b ack pain laterality, with sciatica presence unspecified M54.5 [facility] [address] [id number] [address] [place] [id number] Aug, [facility] [address] [facility] [id number] [address] [place] [id number] Aug, Cramp of both lower extremit ies R25.2 ; Breast cancer screening Z12.39 ; Hyperlipidemia, unspecified hyperlipidemia type E78.5 and Atypical mole L81.9 [facility] [address] [facility] [id number] [address] [place] [id number] Aug, Chronic obstructive pulmonar y disease, unspecified COPD type J44.9 [facility] [address] [facility] [id number] [address] [place] [id number] Aug, Low back pain, unspecified b ack pain laterality, with sciatica presence unspecified M54.5 [place] [address] [facility] [id number] [address] [place] [id number] Aug, 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 [facility] [address] [facility] [id number] [address] [place] [id number] Jul, [facility] [address] [id number] [address] [place] [id number] Jul, [facility] [address] [facility] [id number] [address] [place] [id number] Jul, Allergic rhinitis, unspecifi ed allergic rhinitis type J30.9 [facility] [address] [id number] [address] [place] [id number] Jul, Low back pain, unspecified b ack pain laterality, with sciatica presence unspecified M54.5 [place] [address] [facility] [id number] [address] [place] [id number] Jul, Post-concussion headache G44 .309 and Arthralgia, unspecified joint M25.50 [facility] [address] [facility] [id number] [address] [place] [id number] 24 Jun, 2015 Chronic obstructive pulmonar y disease, unspecified COPD type J44.9 [place] [id number] [place] [id number] June, [place] [address] [address] May, [place] [address] [address] May, [place] [address] [id number] 30 Apr, 2015 Hip pain 719.45 and Atherosc lerotic heart disease of alutiiq coronary artery without angina pectoris I25.10 [place] [address] [place] [id number] [address] [place] [address] Apr, History of self-care deficit Z86.59 ; Hypertrophy of nail L60.2 and Onychomycosis B35.1 [place] [address] [place] [id number] [address] [place] [id number] Apr, [place] [address] [address] Apr, Gastroenteritis K52.9 [place] [address] [place] [id number] [address] [place] [id number] Mar, [place] [address] [id number] Mar, [place] [address] [place] [id number] [address] [place] [id number] Mar, [place] [address] [address] Mar, Acute pain due to injury G89 .11 and Other chronic pain G89.29 [facility] [address] [id number] [address] [place] [id number] Mar, [facility] [address] [id number] [address] [place] [id number] Mar, [facility] [address] [id number] [address] [place] [id number] Mar, [facility] [address] [id number] [address] [place] [id number] Mar, [facility] [address] [id number] [address] [place] [id number] Feb, Low back pain, unspecified b ack pain laterality, with sciatica presence unspecified M54.5 [facility] [address] [facility] [id number] [address] [place] [id number] Feb, [facility] [address] [id number] [address] [place] [id number] Jan, [facility] [address] [facility] [id number] [address] [place] [id number] Jan, Low back pain, unspecified b ack pain laterality, with sciatica presence unspecified M54.5 [facility] [address] [facility] [id number] [address] [place] [id number] Jan, Other chronic pain G89.29 an d Acute pain due to injury G89.11 [facility] [address] [id number] [address] [place] [id number] Dec, [facility] [address] [facility] [id number] [address] [place] [phone] Nov, Essential hypertension I10 a nd Viral infection, unspecified B34.9 [facility] [address] [facility] [id number] [address] [place] [id number] Nov, [facility] [address] [id number] [address] [place] [id number] Nov, [facility] [address] [facility] [id number] [address] [place] [address] [id number] 30 Oct, 2014 [facility] [address] [facility] [id number] [address] [place] [id number] Oct, [facility] [address] [facility] [id number] [address] [place] [id number] Oct, [facility] [address] [id number] [address] [place] [address] Oct, [facility] [address] [facility] [id number] [address] [place] [address] Sep, [facility] [address] [facility] [id number] [address] [place] [id number] Sep, Hypertrophy of nail 703.8 an d Self-care deficit for hygiene V40.39 [facility] [address] [place] [id number] [address] [place] [address] Sep, [facility] [address] [facility] [id number] [address] [place] [address] Sep, [facility] [address] [facility] [id number] [address] [place] [address] Aug, [facility] [address] [place] [id number] [address] [place] [address] Jul, Onychomycosis 110.1 and Ingr own nail 703.0 [facility] [address] [facility] [id number] [address] [place] [address] Jul, Other screening mammogram V7 6.12 [facility] [address] [facility] [id number] [address] [place] [id number] Jul, [facility] [address] [facility] [id number] [address] [place] [address] Jul, Hip pain 719.45 ; Visual dis turbance 368.9 and Conjunctivitis 372.30 [facility] [address] [id number] [address] [place] [address], [place] [address] June, [facility] [address] [id number] [address] [place] [address], [place] [address] June, [facility] [address] [id number] [address] [place] [address], [place] [address] June, [facility] [address] [id number] [address] [place] [address], [place] [address] June, [facility] [address] [id number] [address] [place] [address], [place] [address] May, [facility] [address] [id number] [address] [place] [address], [place] [address] May, [facility] [address] [id number] [address] [place] [address], [place] [address] Apr, [facility] [address] [id number] [address] [place] [address] Apr, [facility] [address] [id number] [address] [place] [address], [place] [address] Apr, [facility] [address] [id number] [address] [place] [phone] Apr, [facility] [address] [id number] [address] [place] [address] Mar, [facility] [address] [id number] [address] [place] [id number] Mar, [facility] [address] [id number] [address] [place] [address], [place] [address] Feb, [facility] [address] [id number] [address] [place] [phone] Feb, [facility] [address] [id number] [address] [place] [address], [place] [address] Feb, [facility] [address] [id number] [address] [place] [address], [place] [address] Jan, [facility] [address] [id number] [address] [place] [address], [place] [address] Jan, [facility] [address] [id number] [address] [place] [address], [place] [address] Jan, [facility] [address] [id number] [address] [place] [address], [place] [address] Jan, [facility] [address] [id number] [address] [place] [address], [place] [address] Jan, [facility] [address] [id number] [address] [place] [address], [place] [address] Jan, [facility] [address] [id number] [address] [place] [address], [place] [address] Dec, [facility] [address] [id number] [address] [place] [address], [place] [address] Nov, [facility] [address] [id number] [address] [place] [address], [place] [address] Nov, [facility] [address] [id number] [address] [place] [address], [place] [address] Nov, [facility] [address] [id number] [address] [place] [address], [place] [address] Nov, [facility] [address] [id number] [address] [place] [address], [place] [address] Nov, [facility] [address] [id number] [address] [place] [address], [place] [address] Nov, [facility] [address] [id number] [address] [place] [address], [place] [address] Nov, [facility] [address] [id number] [address] [place] [address], [place] [address] Nov, [facility] [address] [id number] [address] [place] [address], [place] [address] Nov, [facility] [address] [id number] [address] [place] [address], [place] [address] Nov, [facility] [address] [id number] [address] [place] [address], [place] [address] Oct, [facility] [address] [id number] [address] [place] [address], [place] [address] Oct, [facility] [address] [id number] [address] [place] [address], [place] [address] Oct, [facility] [address] [id number] [address] [place] [address], [place] [address] Oct, [facility] [address] [id number] [address] [place] [address], [place] [address] Oct, [facility] [address] [id number] [address] [place] [address], [place] [address] Oct, [facility] [address] [id number] [address] [place] [address], [place] [address] Oct, [facility] [address] [id number] [address] [place] [address], [place] [address] Oct, [facility] [address] [id number] [address] [place] [address], [place] [address] Sep, [facility] [address] [id number] [address] [place] [address], [place] [address] Sep, [facility] [address] [id number] [address] [place] [address], [place] [address] Sep, [facility] [address] [id number] [address] [place] [address], [place] [address] Sep, [facility] [address] [id number] [address] [place] [address], [place] [address] Aug, [facility] [address] [id number] [address] [place] [address], [place] [address] Aug, [facility] [address] [id number] [address] [place] [address], [place] [address] Aug, [facility] [address] [id number] [address] [place] [address], [place] [address] Aug, [facility] [address] [id number] [address] [place] [address], [place] [address] Aug, [facility] [address] [id number] [address] [place] [address], [place] [address] Aug, [facility] [address] [id number] [address] [place] [address], [place] [address] Aug, [facility] [address] [id number] [address] [place] [address], [place] [address] Aug, [facility] [address] [id number] [address] [place] [address], [place] [address] Jul, [facility] [address] [id number] [address] [place] [address], [place] [address] Jul, [facility] [address] [id number] [address] [place] [address], [place] [address] Jul, [facility] [address] [id number] [address] [place] [address], [place] [address] Jul, [facility] [address] [id number] [address] [place] [address], [place] [address] Jul, [facility] [address] [id number] [address] [place] [address], [place] [address] Jul, [facility] [address] [id number] [address] [place] [address], [place] [address] Jul, [facility] [address] [id number] [address] [place] [address], [place] [address] Jul, [facility] [address] [id number] [address] [place] [address], [place] [address] Jul, [facility] [address] [id number] [address] [place] [address], [place] [address] Jul, [facility] [address] [id number] [facility] [place] [address] 09 Jul, 2013 [facility] [address] [id number] [address] [place] [address], [place] [address] Jul, [facility] [address] [id number] [address] [place] [address], [place] [address] 05 Jul, 2013 [facility] [address] [id number] [address] [place] [address], [place] [address] Jul, [facility] [address] [id number] [address] [place] [address], [place] [address] Jul, [facility] [address] [id number] [address] [place] [address], [place] [address] Jul, [facility] [address] [id number] [address] [place] [address], [place] [address] Jul, [facility] [address] [id number] [address] [place] [address], [place] [address] June, [facility] [address] [id number] [address] [place] [address], [place] [address] June, [facility] [address] [id number] [address] [place] [address], [place] [address] May, [facility] [address] [id number] [address] [place] [address], [place] [address] May, [facility] [address] [id number] [address] [place] [address], [place] [address] May, [facility] [address] [id number] [address] [place] [address], [place] [address] May, [facility] [address] [id number] [address] [place] [address], [place] [address] 17 Apr, 2013 [facility] [address] [id number] [address] [place] [address], [place] [address] 17 Apr, 2013 [facility] [address] [id number] [address] [place] [address], [place] [address] 13 Apr, 2013 [facility] [address] [id number] [facility] [place] [address] 13 Apr, 2013 [facility] [address] [id number] [address] [place] [address], [place] [address] Apr, [facility] [address] [id number] [address] [place] [address], [place] [address] Apr, [facility] [address] [id number] [address] [place] [address], [place] [address] Apr, [facility] [address] [id number] [address] [place] [address], [place] [address] Mar, [facility] [address] [id number] [address] [place] [address], [place] [address] Mar, [facility] [address] [id number] [address] [place] [address], [place] [address] Mar, [facility] [address] [id number] [address] [place] [address], [place] [address] Mar, [facility] [address] [id number] [address] [place] [address], [place] [address] Feb, [facility] [address] [id number] [address] [place] [address], [place] [address] Feb, [facility] [address] [id number] [address] [place] [address], [place] [address] Feb, [facility] [address] [id number] [address] [place] [address], [place] [address] Feb, [facility] [address] [id number] [address] [place] [address], [place] [address] Jan, [facility] [address] [id number] [address] [place] [address], [place] [address] Jan, [facility] [address] [id number] [address] [place] [address], [place] [address] Jan, [facility] [address] [id number] [address] [place] [address], [place] [address] Jan, [facility] [address] [id number] [address] [place] [address], [place] [address] Dec, [facility] [address] [id number] [address] [place] [address], [place] [address] Dec, [facility] [address] [id number] [address] [place] [address], [place] [address] Dec, [facility] [address] [id number] [address] [place] [address], [place] [address] Dec, [facility] [address] [id number] [address] [place] [address], [place] [address] Dec, [facility] [address] [id number] [address] [place] [address], [place] [address] Nov, [facility] [address] [id number] [address] [place] [address], [place] [address] Nov, [facility] [address] [id number] [address] [place] [address], [place] [address] Nov, [facility] [address] [id number] [address] [place] [address], [place] [address] Nov, [facility] [address] [id number] [address] [place] [address], [place] [address] Nov, [facility] [address] [id number] [address] [place] [address], [place] [address] Nov, [facility] [address] [id number] [address] [place] [address], [place] [address] Nov, [facility] [address] [id number] [address] [place] [address], [place] [address] Nov, [facility] [address] [id number] [address] [place] [address], [place] [address] Oct, [facility] [address] [id number] [address] [place] [address], [place] [address] Oct, [facility] [address] [id number] [address] [place] [address], [place] [address] Sep, [facility] [address] [id number] [address] [place] [address], [place] [address] Sep, [facility] [address] [id number] [address] [place] [address], [place] [address] Sep, [facility] [address] [id number] [address] [place] [address], [place] [address] Sep, [facility] [address] [id number] [address] [place] [address], [place] [address] Sep, [facility] [address] [id number] [address] [place] [address], [place] [address] Sep, [facility] [address] [id number] [address] [place] [address], [place] [address] Sep, [facility] [address] [id number] [address] [place] [address], [place] [address] Aug, [facility] [address] [id number] [address] [place] [address], [place] [address] Aug, [facility] [address] [id number] [address] [place] [address], [place] [address] Aug, [facility] [address] [id number] [address] [place] [address], [place] [address] Aug, [facility] [address] [id number] [address] [place] [address], [place] [address] Aug, [facility] [address] [id number] [address] [place] [address], [place] [address] Aug, [facility] [address] [id number] [address] [place] [address], [place] [address] Aug, [facility] [address] [id number] [address] [place] [address], [place] [address] Aug, [facility] [address] [id number] [address] [place] [address], [place] [address] 15 Jul, 2012 [facility] [address] [id number] [address] [place] [address], [place] [address] 14 Jul, 2012 [facility] [address] [id number] [address] [place] [address], [place] [address] Jul, [facility] [address] [id number] [address] [place] [address], [place] [address] Jul, [facility] [address] [id number] [address] [place] [address], [place] [address] June, [facility] [address] [id number] [address] [place] [address], [place] [address] June, [facility] [address] [id number] [address] [place] [address], [place] [address] June, [facility] [address] [id number] [address] [place] [address], [place] [address] June, [facility] [address] [id number] [address] [place] [address], [place] [address] June, [facility] [address] [id number] [address] [place] [address], [place] [address] May, [facility] [address] [id number] [address] [place] [address], [place] [address] May, [facility] [address] [id number] [address] [place] [address], [place] [address] May, [facility] [address] [id number] [address] [place] [address], [place] [address] May, [facility] [address] [id number] [address] [place] [address], [place] [address] Apr, [facility] [address] [id number] [address] [place] [address], [place] [address] Apr, [facility] [address] [id number] [address] [place] [address], [place] [address] Apr, [facility] [address] [id number] [address] [place] [address], [place] [address] 07 Apr, 2012 [facility] [address] [id number] [address] [place] [address], [place] [address] 21 Mar, 2012 [facility] [address] [id number] [address] [place] [address], [place] [address] 15 Mar, 2012 [facility] [address] [id number] [address] [place] [address], [place] [address] 13 Mar, 2012 [facility] [address] [id number] [address] [place] [address], [place] [address] 07 Mar, 2012 [facility] [address] [id number] [address] [place] [address], [place] [address] 07 Feb, 2012 [facility] [address] [id number] [address] [place] [address], [place] [address] 12 Jan, 2012 [facility] [address] [id number] [address] [place] [address], [place] [address] 12 Jan, 2012 [facility] [address] [id number] [address] [place] [address], [place] [address] 07 Jan, 2012 [facility] [address] [id number] [address] [place] [address], [place] [address] 29 Dec, 2011 [facility] [address] [id number] [address] [place] [address], [place] [address] 29 Dec, 2011 [facility] [address] [id number] [address] [place] [address], [place] [address] 28 Dec, 2011 [facility] [address] [id number] [address] [place] [address], [place] [address] 28 Dec, 2011 [facility] [address] [id number] [address] [place] [address], [place] [address] 15 Dec, 2011 [facility] [address] [id number] [address] [place] [address], [place] [address] 15 Dec, 2011 [facility] [address] [id number] [address] [place] [address], [place] [address] 14 Dec, 2011 [facility] [address] [id number] [address] [place] [address], [place] [address] 07 Dec, 2011 [facility] [address] [id number] [address] [place] [address], [place] [address] 07 Dec, 2011 [facility] [address] [id number] [address] [place] [address], [place] [address] 17 Nov, 2011 [facility] [address] [id number] [address] [place] [address], [place] [address] 17 Nov, 2011 [facility] [address] [id number] [address] [place] [address], [place] [address] Nov, [facility] [address] [id number] [address] [place] [address], [place] [address] Nov, [facility] [address] [id number] [address] [place] [address], [place] [address] Nov, [facility] [address] [id number] [address] [place] [address], [place] [address] Nov, [facility] [address] [id number] [address] [place] [address], [place] [address] Oct, [facility] [address] [id number] [address] [place] [address], [place] [address] Sep, [facility] [address] [id number] [address] [place] [address], [place] [address] Sep, [facility] [address] [id number] [address] [place] [address], [place] [address] Aug, [facility] [address] [id number] [address] [place] [address], [place] [address] Aug, [facility] [address] [id number] [address] [place] [address], [place] [address] Aug, [facility] [address] [id number] [address] [place] [address], [place] [address] Aug, [facility] [address] [id number] [address] [place] [address], [place] [address] Aug, [facility] [address] [id number] [address] [place] [address], [place] [address] Jul, [facility] [address] [id number] [address] [place] [address], [place] [address] Jul, [facility] [address] [id number] [address] [place] [address], [place] [address] June, [facility] [address] [id number] [address] [place] [address], [place] [address] June, [facility] [address] [id number] [address] [place] [address], [place] [address] June, [facility] [address] [id number] [address] [place] [address], [place] [address] June, [facility] [address] [id number] [address] [place] [address], [place] [address] May, [facility] [address] [id number] [address] [place] [address], [place] [address] Apr, [facility] [address] [id number] [address] [place] [address], [place] [id number] Apr, [facility] [address] [id number] [address] [place] [address], [place] [address] Apr, [facility] [address] [id number] [address] [place] [address], [place] [address] Apr, [facility] [address] [id number] [address] [place] [address], [place] [address] Apr, [facility] [address] [id number] [address] [place] [address], [place] [address] Mar, [facility] [address] [id number] [address] [place] [address], [place] [address] Mar, [facility] [address] [id number] [address] [place] [address], [place] [address] Mar, [facility] [address] [id number] [address] [place] [address], [place] [address] Feb, [facility] [address] [id number] [address] [place] [address], [place] [address] Feb, [facility] [address] [id number] [address] [place] [address], [place] [address] Feb, [facility] [address] [id number] [address] [place] [address], [place] [address] Feb, [facility] [address] [id number] [address] [place] [address], [place] [address] Feb, [facility] [address] [id number] [address] [place] [address], [place] [address] Feb, [facility] [address] [id number] [address] [place] [address], [place] [address] Jan, [facility] [address] [id number] [address] [place] [address], [place] [address] Jan, [facility] [address] [id number] [address] [place] [address], [place] [address] Jan, [facility] [address] [id number] [address] [place] [address], [place] [address] Jan, [facility] [address] [id number] [address] [place] [address], [place] [address] Jan, [facility] [address] [id number] [address] [place] [address], [place] [address] Jul, [facility] [address] [id number] [address] [place] [address], [place] [address] June, [facility] [address] [id number] [address] [place] [address], [place] [address] Feb, [facility] [address] [id number] [address] [place] [address], [place] [address] Jan, [facility] [address] [id number] [address] [place] [phone] Sep, [facility] [address] [id number] [address] [place] [id number] Aug, [facility] [address] [id number] [address] [place] [phone] May, [facility] [address] [id number] [address] [place] [phone] Apr, [facility] [address] [id number] [address] [place] [phone] Jan, [facility] [address] [id number] [address] [place] [phone] Jan, [facility] [address] [id number] [address] [place] [id number] Jan, [facility] [address] [id number] [address] [place] [phone] Dec, [facility] [address] [id number] [address] [place] [phone] Dec, [facility] [address] [id number] [address] [place] [id number] Nov, [facility] [address] [id number] [address] [place] [id number] Nov, [facility] [address] [id number] [address] [place] [phone] Nov, IMMUNIZATIONS No Known Immunizations SOCIAL HISTORY [...] Diallo nt in 2012 Heart cath in 2017 and stress test in 2018 Dr Alcala Medical History back pain (2 [...] Surgical History rectocele/cystocele repair, pessary fitt ed ([facility]) 05/2013 Surgical History Suspicious lesion removal 2015 Surgical History heart cath 03/03/2019 Hospitalization History [facility] acute gastoentereritis, dehydrati on 06/06 Hospitalization History Heart Cath 2013 Hospitalization History ER visit- 09/2018
--- OUTSIDE RECORDS SUMMARY | 2019-07-19 09:10 | XMS REPORT ---
Author Author Juanita PATIÑO Organization [facility] Address [address] [place] [address] Care Team Providers Care Lead Applier Name Role Phone FUENTES PATIÑO Unavailable PROBLEMS Type Condition ICD9-CM Code SVP06-WL Code Onset Dates Condition S tatus SNOMED Code Problem Episodic cluster headache, not intractable G44.019 Active 648476405 Problem Angina pectoris, unspecified I20.9 A ctive 577955239 Problem Acute bilateral low back pain with left-sided sciatica M54.42 Active 99795969 Problem Other chronic pain G89.29 Active 8 3582779 Problem Lumbago with sciatica, right side M54.41 Active 348258678 Problem Lumbago with sciatica, left side M54.42 Active 324679851 Problem COPD exacerbation J44.1 Active 29 [id number] Problem Anxiety F41.9 Active 93695241 Problem Major depressive disorder, recurrent, mild F33.0 Active 879656804 Problem History of diabetes mellitus, type II Z86.39 Active 990704569 Problem Other chronic pain G89.29 Active 8 7951609 Problem Hyperlipidemia, unspecified hyperlipidemia type E7 8.5 Active 64222950 Problem 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.0 Active 569799088 Problem Chronic obstructive pulmonary disease, unspecified COPD ty pe J44.9 Active 03984067 Problem Essential hypertension I10 Active 36118011 Problem Seasonal allergic rhinitis due to pollen J30.1 Active 68485056 Problem 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 Active 4824655104466 Problem Hypoglycemia E16.2 Active 9068734 03 Problem 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 Active 478532405999 7 Problem Primary osteoarthritis of right knee M17.11 Active [id number] Problem Dysphagia, unspecified type R13.10 Ac tive [id number] ALLERGIES No Information ENCOUNTERS Encounter Location Date Diagnosis [place] [address] [address] 28 May, [address] [address] 30 Apr, 2019 Dysphagia, unspecified type R13.10 ; Breast cancer screening by mammogram Z12.31 and Coronary artery disease of cab[place] artery of [place] heart with stable angina pectoris I25.[address] [address] 10 Apr, 2019 Low back pain, unspecified b ack pain laterality, with sciatica presence unspecified M54.5 ; Onychomycosis B35.1 ; Other chronic pain G89.29 ; Chronic obstructive pulmonary disease, unspecified COPD type J44.9 ; Essential hypertension I10 ; Family history of diabetes mellitus Z83.3 ; Hyperlipidemia, unspecified hyperlipidemia type E78.5 ; Anxiety F41.9 and 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 [address] 06 Mar, 2019 Primary osteoarthritis of ri t knee M17.[address] [address] Mar, [address] [address] Feb, Onychomycosis B35.1 ; Nail h ypertrophy L60.2 and Self-care deficit for grooming and hygiene Z74.[address] [address] Jan, Posterior right knee pain M2 5.561 ; Pain in left leg M79.605 ; Pain in right leg M79.604 ; Coronary artery disease of cabaz[place] artery of cabaz[place] heart with stable angina pectoris I25.118 and Encounter for immunization Z23 [address] [address] Dec, Nail hypertrophy L60.2 ; Lakshmi chomycosis B35.1 and Self-care deficit for grooming and hygiene Z74.1 [place] [address] [address] Oct, [place] [address] [place] [id number] [place] [address] Sep, Other chest pain R07.89 [place] [address] [address] Sep, [facility] [address] [address] Sep, Cellulitis of groin L03.314 [place] [address] [address] Sep, Nail hypertrophy L60.2 and S elf-care deficit for grooming and hygiene Z74.1 [place] [address] [address] Aug, [place] [address] [address] Aug, Hypoglycemia E16.2 ; Nonintr actable episodic headache, unspecified headache type R51 and Candidiasis of breast B37.89 [place] [address] [address] Aug, Nail hypertrophy L60.2 and S elf-care deficit for grooming and hygiene Z74.1 [place] [address] [address] June, [facility] [address] [place] [id number] [address] [place] [address] May, Bee sting, accidental or uni ntentional, initial encounter T63.441A [place] [address] [place] [id number] [address] [place] [address] Apr, Primary osteoarthritis invol ving multiple joints M15.0 ; Angina pectoris, unspecified I20.9 ; History of diabetes mellitus, type II Z86.39 and Chronic obstructive pulmonary disease, unspecified COPD type J44.9 [facility] [address] [facility] [id number] [address] [place] [address] Apr, Nail hypertrophy L60.2 and S elf-care deficit for grooming and hygiene Z74.1 [facility] [address] [facility] [id number] [address] [place] [id number] Mar, [facility] [address] [facility] [id number] [address] [place] [address] Mar, Low back pain M54.5 [facility] [address] [facility] [id number] [address] [place] [phone] Mar, [facility] [address] [facility] [id number] [address] [place] [address] Feb, [facility] [address] [facility] [id number] [address] [place] [id number] Feb, [facility] [address] [facility] [id number] [address] [place] [address] Feb, Encounter for Medicare annua l wellness exam Z00.00 ; Major depressive disorder, recurrent, mild F33.0 ; Chronic obstructive pulmonary disease, unspecified COPD type J44.9 ; 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 ; Primary osteoarthritis involving multiple joints M15.0 ; Angina pectoris, unspecified I20.9 and 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 [facility] [address] [facility] [id number] [address] [place] [address] Jan, [facility] [address] [facility] [id number] [address] [place] [phone] Jan, [facility] [address] [facility] [id number] [address] [place] [phone] Dec, Chronic obstructive pulmonar y disease, unspecified COPD type J44.9 ; Low back pain M54.5 ; Other chronic pain G89.29 and Moderate episode of recurrent major depressive disorder F33.1 [facility] [address] [place] [id number] [address] [place] [address] Nov, [facility] [address] [facility] [id number] [address] [place] [address] Nov, Encounter for immunization Z 23 [facility] [address] [facility] [id number] [address] [place] [address] Nov, Allergic rhinitis due to ned iona, unspecified seasonality J30.1 ; Primary osteoarthritis involving multiple joints M15.0 and Encounter for immunization Z23 [facility] [address] [facility] [id number] [address] [place] [phone] Oct, Nail hypertrophy L60.2 and S elf-care deficit for hygiene R46.0 [facility] [address] [facility] [id number] [address] [place] [phone] Oct, Chest congestion R09.89 ; So re throat J02.9 and Cough R05 [place] [address] [facility] [id number] [address] [place] [address] Sep, [facility] [address] [facility] [id number] [address] [place] [address] Aug, Low back pain M54.5 ; Other chronic pain G89.29 ; Pain in right knee M25.561 ; Pain in left knee M25.562 and Rash R21 [place] [address] [facility] [id number] [address] [place] [address] Aug, Nail hypertrophy L60.2 and S elf-care deficit for hygiene R46.0 [facility] [address] [facility] [id number] [address] [place] [address] June, Hypertrophy of nail L60.2 an d Self-care deficit for hygiene R46.0 [facility] [address] [facility] [id number] [address] [place] [address] June, [facility] [address] [facility] [id number] [address] [place] [id number] June, COPD exacerbation J44.1 [place] [address] [place] [id number] [address] [place] [phone] May, [place] [address] [address] Apr, Seasonal allergic rhinitis d ue to pollen J30.1 ; Encounter for immunization Z23 ; COPD exacerbation J44.1 ; Encounter for screening mammogram for breast cancer Z12.31 and Colon cancer screening Z12.11 [place] [address] [address] Apr, [place] [address] [address] Feb, Lumbago with sciatica, right side M54.41 ; Lumbago with sciatica, left side M54.42 ; Other chronic pain G89.29 ; Left hip pain M25.552 and Anxiety F41.9 [facility] [place] [address] [address] Jan, History of asthma Z87.09 ; C OPD exacerbation J44.1 and Acute non-recurrent maxillary sinusitis J01.00 [place] [address] [address] 20 Jan, 2017 Other chronic pain G89.29 an d Acute bilateral low back pain with left-sided sciatica M54.42 [place] [address] [address] 14 Jan, 2017 Other chronic pain G89.29 an d Acute bilateral low back pain with left-sided sciatica M54.42 [place] [address] [address] 08 Dec, 2016 Trochanteric bursitis of lef t hip M70.62 ; Left hip pain M25.552 and Other chronic pain G89.29 [facility] [address] [address] Nov, Local reaction to insect sti ng, accidental or unintentional, initial encounter T63.481A and Acute dermatitis L30.9 [facility] [address] [id number] [address] [place] [address] Nov, Breast cancer screening Z12. 31 [facility] [address] [id number] [address] [place] [address] Nov, Acute bilateral low back rangel n with left-sided sciatica M54.42 and Low back pain, unspecified back pain laterality, with sciatica presence unspecified M54.5 [facility] [address] [id number] [address] [place] [phone] Oct, Acute bilateral low back rangel n with left-sided sciatica M54.42 [facility] [address] [id number] [address] [place] [id number] Sep, Low back pain, unspecified b ack pain laterality, with sciatica presence unspecified M54.5 [facility] [address] [id number] [address] [place] [address] Sep, [facility] [address] [id number] [address] [place] [phone] Aug, Nail hypertrophy L60.2 ; Lakshmi chomycosis B35.1 and Self-care deficit for hygiene R46.0 [facility] [address] [facility] [id number] [address] [place] [phone] Aug, [facility] [address] [facility] [id number] [address] [place] [phone] Aug, [facility] [address] [id number] [address] [place] [phone] Jul, Rash R21 [place] [address] [facility] [id number] [address] [place] [address] Jul, [facility] [address] [facility] [id number] [address] [place] [id number] Jul, Low back pain, unspecified b ack pain laterality, with sciatica presence unspecified M54.5 [facility] [address] [id number] [address] [place] [phone] June, Nail hypertrophy L60.2 ; Marilee f-care deficit for hygiene R46.0 and Other chronic pain G89.29 [facility] [address] [id number] [address] [place] [id number] June, Low back pain, unspecified b ack pain laterality, with sciatica presence unspecified M54.5 [facility] [address] [id number] [address] [place] [phone] May, [facility] [address] [id number] [address] [place] [phone] May, [facility] [address] [id number] [address] [place] [id number] May, [facility] [address] [id number] [address] [place] [id number] May, Low back pain, unspecified b ack pain laterality, with sciatica presence unspecified M54.5 [facility] [address] [id number] [address] [place] [address] Apr, Breast pain, left N64.4 ; Le ft arm pain M79.602 and Family history of diabetes mellitus Z83.3 [facility] [address] [id number] [address] [place] [id number] Apr, Low back pain, unspecified b ack pain laterality, with sciatica presence unspecified M54.5 [facility] [address] [id number] [address] [place] [id number] Apr, [facility] [address] [id number] [address] [place] [phone] Mar, Onychomycosis B35.1 and Self -care deficit for hygiene R46.0 [facility] [address] [id number] [address] [place] [address] Mar, Low back pain, unspecified b ack pain laterality, with sciatica presence unspecified M54.5 [facility] [address] [id number] [address] [place] [id number] 14 Mar, 2016 Pain in left shoulder M25.51 2 and Other chronic pain G89.29 [facility] [address] [id number] [address] [place] [id number] 13 Mar, 2016 Arthralgia, unspecified join t M25.50 [facility] [address] [id number] [address] [place] [id number] 06 Mar, 2016 [facility] [address] [id number] [address] [place] [phone] Feb, Low back pain, unspecified b ack pain laterality, with sciatica presence unspecified M54.5 [facility] [address] [id number] [address] [place] [phone] Feb, [facility] [id number] [place] [id number] Feb, Dental examination Z01.20 [facility] [id number] [place] [id number] Feb, Dental examination Z01.20 [facility] [address] [id number] [address] [place] [phone] Feb, Cramp of both lower extremit ies R25.2 [facility] [address] [id number] [address] [place] [id number] Feb, [facility] [address] [id number] [address] [place] [phone] Jan, Hypoxemia R09.02 ; Episodic cluster headache, not intractable G44.019 and Cramp of both lower extremities R25.2 [facility] [address] [id number] [address] [place] [id number] Jan, [facility] [address] [id number] [address] [place] [address] Jan, Low back pain, unspecified b ack pain laterality, with sciatica presence unspecified M54.5 [place] [address] [facility] [id number] [address] [place] [address] Jan, Hypertrophy of nail L60.2 ; Onychomycosis B35.1 and Self-care deficit for hygiene R46.0 [place] [address] [place] [id number] [address] [place] [phone] Jan, Low back pain, unspecified b ack pain laterality, with sciatica presence unspecified M54.5 [place] [address] [facility] [id number] [address] [place] [id number] Dec, Low back pain, unspecified b ack pain laterality, with sciatica presence unspecified M54.5 [facility] [address] [place] [id number] [address] [place] [phone] Dec, Bug bite with infection, ini tial encounter W57.XXXA [place] [address] [place] [id number] [address] [place] [address] Nov, Low back pain, unspecified b ack pain laterality, with sciatica presence unspecified M54.5 [place] [address] [place] [id number] [address] [place] [id number] Nov, [place] [address] [place] [id number] [address] [place] [phone] Nov, Chronic obstructive pulmonar y disease, unspecified COPD type J44.9 [place] [address] [facility] [id number] [address] [place] [phone] Nov, [place] [address] [place] [id number] [address] [place] [id number] 14 Oct, 2015 [place] [address] [facility] [id number] [address] [place] [address] 08 Oct, 2015 Onychomycosis B35.1 and Ingr own nail L60.0 [place] [address] [id number] [address] [place] [address] Oct, Low back pain, unspecified b ack pain laterality, with sciatica presence unspecified M54.5 [facility] [address] [id number] [address] [place] [phone] Sep, [facility] [address] [id number] [address] [place] [address] Sep, Low back pain, unspecified b ack pain laterality, with sciatica presence unspecified M54.5 [facility] [address] [id number] [address] [place] [address] Aug, [place] [address] [facility] [id number] [address] [place] [phone] Aug, Cramp of both lower extremit ies R25.2 ; Breast cancer screening Z12.39 ; Hyperlipidemia, unspecified hyperlipidemia type E78.5 and Atypical mole L81.9 [facility] [address] [id number] [address] [place] [address] Aug, Chronic obstructive pulmonar y disease, unspecified COPD type J44.9 [place] [address] [id number] [address] [place] [id number] Aug, Low back pain, unspecified b ack pain laterality, with sciatica presence unspecified M54.5 [place] [address] [id number] [address] [place] [address] Aug, 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 [facility] [address] [id number] [address] [place] [address] Jul, [facility] [address] [id number] [address] [place] [id number] Jul, [facility] [address] [facility] [id number] [address] [place] [phone] Jul, Allergic rhinitis, unspecifi ed allergic rhinitis type J30.9 [place] [address] [id number] [address] [place] [id number] 13 Jul, 2015 Low back pain, unspecified b ack pain laterality, with sciatica presence unspecified M54.5 [facility] [address] [facility] [id number] [address] [place] [id number] 07 Jul, 2015 Post-concussion headache G44 .309 and Arthralgia, unspecified joint M25.50 [place] [address] [id number] [address] [place] [id number] 24 Jun, 2015 Chronic obstructive pulmonar y disease, unspecified COPD type J44.9 [place] [address] [facility] [id number] [address] [place] [phone] June, [place] [address] [facility] [id number] [address] [place] [phone] May, [place] [address] [place] [id number] [address] [place] [id number] 05 May, 2015 [facility] [address] [facility] [id number] [address] [place] [id number] 30 Apr, 2015 Hip pain 719.45 and Atherosc lerotic heart disease of cabazon coronary artery without angina pectoris I25.10 [place] [address] [place] [id number] [address] [place] [address] Apr, History of self-care deficit Z86.59 ; Hypertrophy of nail L60.2 and Onychomycosis B35.1 [facility] [address] [facility] [id number] [address] [place] [address] 16 Apr, 2015 [facility] [address] [facility] [id number] [address] [place] [phone] 15 Apr, 2015 Gastroenteritis K52.9 [facility] [address] [facility] [id number] [address] [place] [phone] Mar, [facility] [address] [place] [id number] [address] [place] [phone] Mar, [facility] [address] [id number] [address] [place] [phone] Mar, [facility] [address] [id number] [address] [place] [address] Mar, Acute pain due to injury G89 .11 and Other chronic pain G89.29 [facility] [address] [id number] [address] [place] [phone] Mar, [facility] [address] [id number] [address] [place] [phone] Mar, [facility] [address] [id number] [address] [place] [phone] Mar, [facility] [address] [id number] [address] [place] [phone] Mar, [facility] [address] [id number] [address] [place] [phone] Feb, Low back pain, unspecified b ack pain laterality, with sciatica presence unspecified M54.5 [facility] [address] [id number] [address] [place] [phone] Feb, [facility] [address] [id number] [address] [place] [id number] Jan, [facility] [address] [id number] [address] [place] [phone] Jan, Low back pain, unspecified b ack pain laterality, with sciatica presence unspecified M54.5 [facility] [address] [id number] [address] [place] [phone] Jan, Other chronic pain G89.29 an d Acute pain due to injury G89.11 [facility] [address] [id number] [address] [place] [id number] Dec, [facility] [address] [id number] [address] [place] [phone] Nov, Essential hypertension I10 a nd Viral infection, unspecified B34.9 [facility] [address] [facility] [id number] [address] [place] [phone] Nov, [facility] [address] [facility] [id number] [address] [place] [phone] Nov, [facility] [address] [facility] [id number] [address] [place] [phone] Oct, [facility] [address] [facility] [id number] [address] [place] [phone] Oct, [facility] [address] [facility] [id number] [address] [place] [id number] Oct, [facility] [address] [place] [id number] [address] [place] [phone] Oct, [facility] [address] [place] [id number] [address] [place] [id number] Sep, [facility] [address] [place] [id number] [address] [place] [id number] Sep, Hypertrophy of nail 703.8 an d Self-care deficit for hygiene V40.39 [facility] [address] [place] [id number] [address] [place] [id number] Sep, [facility] [address] [place] [id number] [address] [place] [address] Sep, [facility] [address] [id number] [address] [place] [address] Aug, [facility] [address] [facility] [id number] [address] [place] [address] Jul, Onychomycosis 110.1 and Ingr own nail 703.0 [facility] [address] [facility] [id number] [address] [place] [address] Jul, Other screening mammogram V7 6.12 [facility] [address] [id number] [address] [place] [address] Jul, [facility] [address] [id number] [address] [place] [address] Jul, Hip pain 719.45 ; Visual dis turbance 368.9 and Conjunctivitis 372.30 [facility] [address] [id number] [address] [place] [address], [place] [address] June, [facility] [address] [id number] [address] [place] [address] June, [facility] [address] [id number] [address] [place] [address], [place] [address] June, [facility] [address] [id number] [address] [place] [address], [place] [address] June, [facility] [address] [id number] [address] [place] [address], [place] [address] May, [facility] [address] [id number] [address] [place] [address], [place] [address] May, [facility] [address] [id number] [address] [place] [phone] Apr, [facility] [address] [id number] [address] [place] [address], [place] [address] Apr, [facility] [address] [id number] [address] [place] [phone] Apr, [facility] [address] [id number] [address] [place] [phone] Apr, [facility] [address] [id number] [address] [place] [address] Mar, [facility] [address] [id number] [address] [place] [phone] Mar, [facility] [address] [id number] [address] [place] [phone] Feb, [facility] [address] [id number] [address] [place] [phone] Feb, [facility] [address] [id number] [address] [place] [address], [place] [address] Feb, [facility] [address] [id number] [address] [place] [address], [place] [address] Jan, [facility] [address] [id number] [address] [place] [address], [place] [address] Jan, [facility] [address] [id number] [address] [place] [address], [place] [address] Jan, [facility] [address] [id number] [address] [place] [address], [place] [address] Jan, [facility] [address] [id number] [address] [place] [address], [place] [address] Jan, [facility] [address] [id number] [address] [place] [address], [place] [address] Jan, [facility] [address] [id number] [address] [place] [address], [place] [address] Dec, [facility] [address] [id number] [address] [place] [address], [place] [address] Nov, [facility] [address] [id number] [address] [place] [address], [place] [address] Nov, [facility] [address] [id number] [address] [place] [address], [place] [address] Nov, [facility] [address] [id number] [address] [place] [phone] Nov, [facility] [address] [id number] [address] [place] [address], [place] [address] Nov, [facility] [address] [id number] [address] [place] [address], [place] [address] Nov, [facility] [address] [id number] [address] [place] [address], [place] [address] Nov, [facility] [address] [id number] [address] [place] [address], [place] [address] Nov, [facility] [address] [id number] [address] [place] [address], [place] [address] Nov, [facility] [address] [id number] [address] [place] [address], [place] [address] Nov, [facility] [address] [id number] [address] [place] [address], [place] [address] Oct, [facility] [address] [id number] [address] [place] [address], [place] [address] 25 Oct, 2013 [facility] [address] [id number] [address] [place] [address], [place] [address] Oct, [facility] [address] [id number] [address] [place] [address], [place] [address] Oct, [facility] [address] [id number] [address] [place] [address], [place] [address] 15 Oct, 2013 [facility] [address] [id number] [address] [place] [address], [place] [address] 15 Oct, 2013 [facility] [address] [id number] [address] [place] [address], [place] [address] 04 Oct, 2013 [facility] [address] [id number] [address] [place] [address], [place] [address] 04 Oct, 2013 [facility] [address] [id number] [address] [place] [address], [place] [address] Sep, [facility] [address] [id number] [address] [place] [address], [place] [address] Sep, [facility] [address] [id number] [address] [place] [address], [place] [address] Sep, [facility] [address] [id number] [address] [place] [address], [place] [address] Sep, [facility] [address] [id number] [address] [place] [address], [place] [address] Aug, [facility] [address] [id number] [facility] [place] [address] Aug, 2013 [facility] [address] [id number] [facility] [place] [address] Aug, 2013 [facility] [address] [id number] [facility] [place] [address] Aug, 2013 [facility] [address] [id number] [facility] [place] [address] Aug, 2013 [facility] [address] [id number] [facility] [place] [address] Aug, 2013 [facility] [address] [id number] [address] [place] [address], [place] [address] Aug, [facility] [address] [id number] [address] [place] [address], [place] [address] Aug, [facility] [address] [id number] [address] [place] [address], [place] [address] Jul, [facility] [address] [id number] [address] [place] [address], [place] [address] Jul, [facility] [address] [id number] [address] [place] [address], [place] [address] Jul, [facility] [address] [id number] [address] [place] [address], [place] [address] Jul, [facility] [address] [id number] [address] [place] [address], [place] [address] Jul, [facility] [address] [id number] [address] [place] [address], [place] [address] Jul, [facility] [address] [id number] [address] [place] [address], [place] [address] Jul, [facility] [address] [id number] [address] [place] [address], [place] [address] Jul, [facility] [address] [id number] [address] [place] [address], [place] [address] Jul, [facility] [address] [id number] [address] [place] [address], [place] [address] Jul, [facility] [address] [id number] [address] [place] [address], [place] [address] Jul, [facility] [address] [id number] [address] [place] [address], [place] [address] Jul, [facility] [address] [id number] [address] [place] [address], [place] [address] Jul, [facility] [address] [id number] [address] [place] [address], [place] [address] Jul, [facility] [address] [id number] [address] [place] [address], [place] [address] Jul, [facility] [address] [id number] [address] [place] [address], [place] [address] Jul, [facility] [address] [id number] [address] [place] [address], [place] [address] Jul, [facility] [address] [id number] [address] [place] [address], [place] [address] June, [facility] [address] [id number] [address] [place] [address], [place] [address] June, [facility] [address] [id number] [address] [place] [address], [place] [address] May, [facility] [address] [id number] [address] [place] [address], [place] [address] May, [facility] [address] [id number] [address] [place] [address], [place] [address] May, [facility] [address] [id number] [address] [place] [address], [place] [address] May, [facility] [address] [id number] [address] [place] [address], [place] [address] Apr, [facility] [address] [id number] [facility] [place] [address] 17 Apr, 2013 [facility] [address] [id number] [address] [place] [address], [place] [address] 13 Apr, 2013 [facility] [address] [id number] [address] [place] [address], [place] [address] 13 Apr, 2013 [facility] [address] [id number] [address] [place] [address], [place] [address] 11 Apr, 2013 [facility] [address] [id number] [address] [place] [address], [place] [address] 11 Apr, 2013 [facility] [address] [id number] [address] [place] [address], [place] [address] 10 Apr, 2013 [facility] [address] [id number] [address] [place] [address], [place] [address] 13 Mar, 2013 [facility] [address] [id number] [address] [place] [address], [place] [address] 13 Mar, 2013 [facility] [address] [id number] [address] [place] [address], [place] [address] 11 Mar, 2013 [facility] [address] [id number] [address] [place] [address], [place] [address] Mar, [facility] [address] [id number] [address] [place] [address], [place] [address] Feb, [facility] [address] [id number] [address] [place] [address], [place] [address] Feb, [facility] [address] [id number] [address] [place] [address], [place] [address] Feb, [facility] [address] [id number] [address] [place] [address], [place] [address] Feb, [facility] [address] [id number] [address] [place] [address], [place] [address] Jan, [facility] [address] [id number] [address] [place] [address], [place] [address] Jan, [facility] [address] [id number] [address] [place] [address], [place] [address] Jan, [facility] [address] [id number] [address] [place] [address], [place] [address] Jan, [facility] [address] [id number] [address] [place] [address], [place] [address] Dec, [facility] [address] [id number] [address] [place] [address], [place] [address] Dec, [facility] [address] [id number] [address] [place] [address], [place] [address] Dec, [facility] [address] [id number] [address] [place] [address], [place] [address] Dec, [facility] [address] [id number] [address] [place] [address], [place] [address] Dec, [facility] [address] [id number] [address] [place] [address] Nov, [facility] [address] [id number] [address] [place] [address], [place] [address] Nov, [facility] [address] [id number] [address] [place] [address] Nov, [facility] [address] [id number] [address] [place] [address] Nov, [facility] [address] [id number] [address] [place] [address] Nov, [facility] [address] [id number] [address] [place] [address], [place] [address] Nov, [facility] [address] [id number] [address] [place] [address] Nov, [facility] [address] [id number] [address] [place] [address] Nov, [facility] [address] [id number] [address] [place] [address], [place] [address] Oct, [facility] [address] [id number] [address] [place] [address], [place] [address] Oct, [facility] [address] [id number] [address] [place] [address], [place] [address] Sep, [facility] [address] [id number] [address] [place] [address], [place] [address] Sep, [facility] [address] [id number] [address] [place] [address], [place] [address] Sep, [facility] [address] [id number] [address] [place] [address], [place] [address] Sep, [facility] [address] [id number] [address] [place] [address], [place] [address] Sep, [facility] [address] [id number] [address] [place] [address], [place] [address] Sep, [facility] [address] [id number] [address] [place] [address], [place] [address] Sep, [facility] [address] [id number] [address] [place] [address], [place] [address] Aug, [facility] [address] [id number] [address] [place] [address], [place] [address] Aug, [facility] [address] [id number] [address] [place] [address], [place] [address] Aug, [facility] [address] [id number] [address] [place] [address], [place] [address] Aug, [facility] [address] [id number] [address] [place] [address], [place] [address] 16 Aug, 2012 [facility] [address] [id number] [address] [place] [address], [place] [address] Aug, [facility] [address] [id number] [address] [place] [address], [place] [address] 05 Aug, 2012 [facility] [address] [id number] [address] [place] [address], [place] [address] Aug, [facility] [address] [id number] [address] [place] [address], [place] [address] 15 Jul, 2012 [facility] [address] [id number] [address] [place] [address], [place] [address] 14 Jul, 2012 [facility] [address] [id number] [address] [place] [address], [place] [address] Jul, [facility] [address] [id number] [address] [place] [address], [place] [address] Jul, [facility] [address] [id number] [address] [place] [address], [place] [address] June, [facility] [address] [id number] [address] [place] [address], [place] [address] June, [facility] [address] [id number] [address] [place] [address], [place] [address] June, [facility] [address] [id number] [address] [place] [address], [place] [address] June, [facility] [address] [id number] [address] [place] [address], [place] [address] June, [facility] [address] [id number] [address] [place] [address], [place] [address] May, [facility] [address] [id number] [address] [place] [address], [place] [address] May, [facility] [address] [id number] [address] [place] [address], [place] [address] May, [facility] [address] [id number] [address] [place] [address], [place] [address] May, [facility] [address] [id number] [address] [place] [address], [place] [address] Apr, [facility] [address] [id number] [address] [place] [address], [place] [address] Apr, [facility] [address] [id number] [address] [place] [address], [place] [address] 08 Apr, 2012 [facility] [address] [id number] [address] [place] [address], [place] [address] 07 Apr, 2012 [facility] [address] [id number] [address] [place] [address], [place] [address] 21 Mar, 2012 [facility] [address] [id number] [address] [place] [address], [place] [address] 15 Mar, 2012 [facility] [address] [id number] [address] [place] [address], [place] [address] 13 Mar, 2012 [facility] [address] [id number] [address] [place] [address], [place] [address] 07 Mar, 2012 [facility] [address] [id number] [address] [place] [address], [place] [address] Feb, [facility] [address] [id number] [address] [place] [address], [place] [address] Jan, [facility] [address] [id number] [address] [place] [address], [place] [address] Jan, [facility] [address] [id number] [address] [place] [address], [place] [address] Jan, [facility] [address] [id number] [address] [place] [address], [place] [address] Dec, [facility] [address] [id number] [address] [place] [address], [place] [address] Dec, [facility] [address] [id number] [address] [place] [address], [place] [address] Dec, [facility] [address] [id number] [address] [place] [address], [place] [address] Dec, [facility] [address] [id number] [address] [place] [address], [place] [address] 15 Dec, 2011 [facility] [address] [id number] [address] [place] [address], [place] [address] 15 Dec, 2011 [facility] [address] [id number] [address] [place] [address], [place] [address] 14 Dec, 2011 [facility] [address] [id number] [address] [place] [address], [place] [address] 07 Dec, 2011 [facility] [address] [id number] [address] [place] [address], [place] [address] 07 Dec, 2011 [facility] [address] [id number] [address] [place] [address], [place] [address] 17 Nov, 2011 [facility] [address] [id number] [address] [place] [address], [place] [address] 17 Nov, 2011 [facility] [address] [id number] [address] [place] [address], [place] [address] 12 Nov, 2011 [facility] [address] [id number] [address] [place] [address], [place] [address] 12 Nov, 2011 [facility] [address] [id number] [address] [place] [address], [place] [address] 10 Nov, 2011 [facility] [address] [id number] [address] [place] [address], [place] [address] 10 Nov, 2011 [facility] [address] [id number] [address] [place] [address], [place] [address] 12 Oct, 2011 [facility] [address] [id number] [address] [place] [address], [place] [address] 16 Sep, 2011 [facility] [address] [id number] [address] [place] [address], [place] [address] Sep, [facility] [address] [id number] [address] [place] [address], [place] [address] Aug, [facility] [address] [id number] [address] [place] [address], [place] [address] Aug, [facility] [address] [id number] [address] [place] [address], [place] [address] Aug, [facility] [address] [id number] [address] [place] [address], [place] [address] Aug, [facility] [address] [id number] [address] [place] [address], [place] [address] Aug, [facility] [address] [id number] [address] [place] [address], [place] [address] Jul, [facility] [address] [id number] [address] [place] [address], [place] [address] Jul, [facility] [address] [id number] [address] [place] [address], [place] [address] June, [facility] [address] [id number] [address] [place] [address], [place] [address] June, [facility] [address] [id number] [address] [place] [address], [place] [address] June, [facility] [address] [id number] [address] [place] [address], [place] [address] June, [facility] [address] [id number] [address] [place] [address], [place] [address] May, [facility] [address] [id number] [address] [place] [address], [place] [address] Apr, [facility] [address] [id number] [address] [place] [address], [place] [address] Apr, [facility] [address] [id number] [address] [place] [address], [place] [address] Apr, [facility] [address] [id number] [address] [place] [address], [place] [address] Apr, [facility] [address] [id number] [address] [place] [address], [place] [address] Apr, [facility] [address] [id number] [address] [place] [address], [place] [address] Mar, [facility] [address] [id number] [address] [place] [address], [place] [address] Mar, [facility] [address] [id number] [address] [place] [address], [place] [address] Mar, [facility] [address] [id number] [address] [place] [address], [place] [address] Feb, [facility] [address] [id number] [address] [place] [address], [place] [address] Feb, [facility] [address] [id number] [address] [place] [address], [place] [address] Feb, [facility] [address] [id number] [address] [place] [address], [place] [address] Feb, [facility] [address] [id number] [address] [place] [address], [place] [address] Feb, [facility] [address] [id number] [address] [place] [address], [place] [address] Feb, [facility] [address] [id number] [address] [place] [address], [place] [address] Jan, [facility] [address] [id number] [address] [place] [address], [place] [address] Jan, [facility] [address] [id number] [address] [place] [address], [place] [address] Jan, [facility] [address] [id number] [address] [place] [address], [place] [address] Jan, [facility] [address] [id number] [address] [place] [address], [place] [address] Jan, [facility] [address] [id number] [address] [place] [address], [place] [id number] 16 Jul, 2010 [facility] [address] [id number] [address] [place] [address], [place] [id number] June, [facility] [address] [id number] [address] [place] [address], [place] [phone] Feb, [facility] [address] [id number] [address] [place] [phone] Jan, [facility] [address] [id number] [address] [place] [id number] Sep, [facility] [address] [id number] [address] [place] [phone] Aug, [facility] [address] [id number] [address] [place] [phone] May, [facility] [address] [id number] [address] [place] [phone] Apr, [facility] [address] [id number] [address] [place] [phone] Jan, [facility] [address] [id number] [address] [place] [phone] Jan, [facility] [address] [id number] [address] [place] [phone] Jan, [facility] [address] [id number] [address] [place] [phone] Dec, [facility] [address] [id number] [address] [place] [phone] Dec, [facility] [address] [id number] [address] [place] [phone] Nov, [facility] [address] [id number] [address] [place] [phone] Nov, [facility] [address] [id number] [address] [place] [phone] Nov, IMMUNIZATIONS No Known Immunizations SOCIAL HISTORY [...] Surgical History rectocele/cystocele repair, pessary fitt ed ([facility]) 05/2013 Surgical History Suspicious lesion removal 2016 Surgical History heart cath 03/03/2019 Hospitalization History [facility] acute gastoentereritis, dehydrati on 06/06 Hospitalization History Heart Cath 2013 Hospitalization History ER visit- 09/2018
--- OUTSIDE RECORDS SUMMARY | 2019-07-19 09:11 | XMS REPORT ---
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 Active 6857682768062 Problem Other chronic pain G89.29 Active 8 5966075 Problem Episodic cluster headache, not intractable G44.019 Active 693663016 Problem Lumbago with sciatica, left side M54.42 Active 922686344 Problem Acute bilateral low back pain with left-sided sciatica M54.42 Active 92081008 Problem Anxiety F41.9 Active 07801395 Problem Lumbago with sciatica, right side M54.41 Active 590677679 Problem 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.0 Active 582431600 Problem Major depressive disorder, recurrent, mild F33.0 Active 138255457 Problem History of diabetes mellitus, type II Z86.39 Active 314900789 Problem Hyperlipidemia, unspecified hyperlipidemia type E7 8.5 Active 29129143 Problem Seasonal allergic rhinitis due to pollen J30.1 Active 20146322 Problem Essential hypertension I10 Active 51219487 Problem COPD exacerbation J44.1 Active 29 8320579572429 Problem Chronic obstructive pulmonary disease, unspecified COPD ty pe J44.9 Active 16804102 Problem Other chronic pain G89.29 Active 8 9444397 Problem Hypoglycemia E16.2 Active 8507670 03 Problem 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 Active 470427022175 7 Problem Primary osteoarthritis of right knee M17.11 Active [id number] ALLERGIES No Information ENCOUNTERS Encounter Location Date Diagnosis [facility] [address] [id number] [place] [address] Apr, [place] [address] [address] Apr, Low back pain, unspecified back pain lat erality, with sciatica presence unspecified M54.5 ; Onychomycosis B35.1 ; Other chronic pain G89.29 ; Chronic obstructive pulmonary disease, unspecified COPD type J44.9 ; Essential hypertension I10 ; Family history of diabetes mellitus Z83.3 ; Hyperlipidemia, unspecified hyperlipidemia type E78.5 ; Anxiety F41.9 and 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 [address] Mar, Primary osteoarthritis of right knee M17 .[address] [address] Mar, [address] [address] Feb, Onychomycosis B35.1 ; Nail hypertrophy L 60.2 and Self-care deficit for grooming and hygiene Z74.[address] [address] Jan, Posterior right knee pain M25.561 ; Pain in left leg M79.605 ; Pain in right leg M79.604 ; 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 I25.118 and Encounter for immunization Z23 [address] [address] Dec, Nail hypertrophy L60.2 ; Onychomycosis B 35.1 and Self-care deficit for grooming and hygiene Z74.[address] [address] Oct, [address] [address] Sep, Other chest pain R07.[address] [address] Sep, [facility] [place] [id number] [address] [place] [address] Sep, Cellulitis of groin L03.314 [place] [address] [address] Sep, Nail hypertrophy L60.2 and Self-care def icit for grooming and hygiene Z74.1 [place] [address] [address] Aug, [address] [address] Aug, Hypoglycemia E16.2 ; Nonintractable epis odic headache, unspecified headache type R51 and Candidiasis of breast B37.[address] [address] Aug, Nail hypertrophy L60.2 and Self-care def icit for grooming and hygiene Z74.[address] [address] June, [facility] WALK IN [address] [address] May, Bee sting, accidental or uni ntentional, initial encounter T63.441A [address] [address] Apr, Primary osteoarthritis involving multipl e joints M15.0 ; Angina pectoris, unspecified I20.9 ; History of diabetes mellitus, type II Z86.39 and Chronic obstructive pulmonary disease, unspecified COPD type J44.[address] [address] Apr, Nail hypertrophy L60.2 and Self-care def icit for grooming and hygiene Z74.[address] [address] Mar, [facility]ARE [address] [place], [place] [id number] [address] [place] [address] Mar, Low back pain M54.5 [place] [address] [address] Mar, [place] [address] [address] Feb, [place] [address] [address] Feb, [place] [address] [address] Feb, Encounter for Medicare annual wellness e xam Z00.00 ; Major depressive disorder, recurrent, mild F33.0 ; Chronic obstructive pulmonary disease, unspecified COPD type J44.9 ; 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 ; Primary osteoarthritis involving multiple joints M15.0 ; Angina pectoris, unspecified I20.9 and 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 [place] [address] [address] Jan, [place] [address] [address] Jan, [place] [address] [address] Dec, Chronic obstructive pulmonary disease, u nspecified COPD type J44.9 ; Low back pain M54.5 ; Other chronic pain G89.29 and Moderate episode of recurrent major depressive disorder F33.1 [place] [address] [address] Nov, [place] [address] [address] Nov, Encounter for immunization Z23 [place] [address] [address] Nov, Allergic rhinitis due to pollen, unspeci fied seasonality J30.1 ; Primary osteoarthritis involving multiple joints M15.0 and Encounter for immunization Z23 [place] [address] [address] Oct, Nail hypertrophy L60.2 and Self-care def icit for hygiene R46.0 [facility] [address] [facility] [id number] [address] [place] [address] Oct, Chest congestion R09.89 ; So re throat J02.9 and Cough R05 [facility] [address] [address] Sep, [place] [address] [address] Aug, Low back pain M54.5 ; Other chronic pain G89.29 ; Pain in right knee M25.561 ; Pain in left knee M25.562 and Rash R21 [place] [address] [address] Aug, Nail hypertrophy L60.2 and Self-care def icit for hygiene R46.0 [place] [address] [address] June, Hypertrophy of nail L60.2 and Self-care deficit for hygiene R46.0 [place] [address] [address] June, [place] [address] [address] June, COPD exacerbation J44.1 [place] [address] [address] May, [place] [address] [address] Apr, Seasonal allergic rhinitis due to pollen J30.1 ; Encounter for immunization Z23 ; COPD exacerbation J44.1 ; Encounter for screening mammogram for breast cancer Z12.31 and Colon cancer screening Z12.11 [place] [address] [address] Apr, [place] [address] [address] Feb, Lumbago with sciatica, right side M54.41 ; Lumbago with sciatica, left side M54.42 ; Other chronic pain G89.29 ; Left hip pain M25.552 and Anxiety F41.9 [facility] [place] [address] [address] [place] [id number] [place] [address] Jan, History of asthma Z87.09 ; C OPD exacerbation J44.1 and Acute non-recurrent maxillary sinusitis J01.00 [place] [address] [address] Jan, Other chronic pain G89.29 and Acute bila teral low back pain with left- sided sciatica M54.42 [place] [address] [address] Jan, Other chronic pain G89.29 and Acute bila teral low back pain with left- sided sciatica M54.[address] [address] Dec, Trochanteric bursitis of left hip M70.62 ; Left hip pain M25.552 and Other chronic pain G89.29 [facility] WALK IN [address] [address] Nov, Local reaction to insect sti ng, accidental or unintentional, initial encounter T63.481A and Acute dermatitis L30.[address] [address] Nov, Breast cancer screening Z12.[address] [address] Nov, Acute bilateral low back pain with left- sided sciatica M54.42 and Low back pain, unspecified back pain laterality, with sciatica presence unspecified M54.5 [facility] WALK IN [place] [address] [address] Oct, Acute bilateral low back rangel n with left-sided sciatica M54.42 [place] [address] [address] Sep, Low back pain, unspecified back pain lat erality, with sciatica presence unspecified M54.5 [facility] [address] [address] Sep, [facility] [address] [address] Aug, Nail hypertrophy L60.2 ; Onychomycosis B 35.1 and Self-care deficit for hygiene R46.0 [facility] [address] [address] Aug, [facility] [address] [address] Aug, [facility] [address] [facility] [id number] [address] [place] [address] Jul, Rash R21 [facility] [address] [address] Jul, [facility] [address] [address] Jul, Low back pain, unspecified back pain lat erality, with sciatica presence unspecified M54.5 [place] [address] [address] June, Nail hypertrophy L60.2 ; Self-care defic it for hygiene R46.0 and Other chronic pain G89.29 [facility] [address] [address] June, Low back pain, unspecified back pain lat erality, with sciatica presence unspecified M54.5 [place] [address] [address] May, [facility] [address] [address] May, [facility] [address] [address] May, [place] [address] [address] May, Low back pain, unspecified back pain lat erality, with sciatica presence unspecified M54.5 [place] [address] [address] Apr, Breast pain, left N64.4 ; Left arm pain M79.602 and Family history of diabetes mellitus Z83.3 [place] [address] [address] Apr, Low back pain, unspecified back pain lat erality, with sciatica presence unspecified M54.5 [place] [address] [address] Apr, [place] [address] [address] 28 Mar, 2016 Onychomycosis B35.1 and Self-care defici t for hygiene R46.0 [place] [address] [address] 17 Mar, 2016 Low back pain, unspecified back pain lat erality, with sciatica presence unspecified M54.5 [facility] [address] [facility] [id number] [address] [place] [address] 14 Mar, 2016 Pain in left shoulder M25.51 2 and Other chronic pain G89.29 [place] [address] [address] 13 Mar, 2016 Arthralgia, unspecified joint M25.50 [place] [address] [address] 06 Mar, 2016 [place] [address] [address] Feb, Low back pain, unspecified back pain lat erality, with sciatica presence unspecified M54.5 [place] [address] [address] Feb, [facility] [address] [id number] Feb, Dental examination Z01.20 [facility] [address] [id number] Feb, Dental examination Z01.20 [place] [address] [address] Feb, Cramp of both lower extremities R25.2 [place] [address] [address] Feb, [place] [address] [place] [address] Jan, Hypoxemia R09.02 ; Episodic cluster head ache, not intractable G44.019 and Cramp of both lower extremities R25.2 [place] [address] [address] Jan, [place] [address] [address] Jan, Low back pain, unspecified back pain lat erality, with sciatica presence unspecified M54.5 [place] [address] [address] Jan, Hypertrophy of nail L60.2 ; Onychomycosi s B35.1 and Self-care deficit for hygiene R46.0 [place] [address] [address] Jan, Low back pain, unspecified back pain lat erality, with sciatica presence unspecified M54.5 [place] [address] [address] Dec, Low back pain, unspecified back pain lat erality, with sciatica presence unspecified M54.[address] [facility] [address] [facility] [id number] [address] [place] [address] Dec, Bug bite with infection, ini tial encounter W57.XXXA [place] [address] [address] Nov, Low back pain, unspecified back pain lat erality, with sciatica presence unspecified M54.5 [place] [address] [address] Nov, [place] [address] [address] Nov, Chronic obstructive pulmonary disease, u nspecified COPD type J44.9 [place] [address] [address] Nov, [place] [address] [address] Oct, [place] [address] [address] Oct, Onychomycosis B35.1 and Ingrown nail L60 .0 [place] [address] [address] Oct, Low back pain, unspecified back pain lat erality, with sciatica presence unspecified M54.5 [place] [address] [address] Sep, [place] [address] [address] Sep, Low back pain, unspecified back pain lat erality, with sciatica presence unspecified M54.5 [place] [address] [address] Aug, [place] [address] [address] Aug, Cramp of both lower extremities R25.2 ; Breast cancer screening Z12.39 ; Hyperlipidemia, unspecified hyperlipidemia type E78.5 and Atypical mole L81.9 [place] [address] [address] Aug, Chronic obstructive pulmonary disease, u nspecified COPD type J44.9 [place] [address] [address] 11 Aug, 2015 Low back pain, unspecified back pain lat erality, with sciatica presence unspecified M54.5 [place] [address] [address] 11 Aug, 2015 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 [place] [address] [address] Jul, [place] [address] [address] Jul, [place] [address] [address] Jul, Allergic rhinitis, unspecified allergic rhinitis type J30.9 [place] [address] [address] Jul, Low back pain, unspecified back pain lat erality, with sciatica presence unspecified M54.5 [place] [address] [address] 07 Jul, 2015 Post-concussion headache G44.309 and Art hralgia, unspecified joint M25.50 [place] [address] [address] June, Chronic obstructive pulmonary disease, u nspecified COPD type J44.9 [place] [address] [address] June, [place] [address] [address] May, [place] [address] [address] May, [place] [address] [address] Apr, Hip pain 719.45 and Atherosclerotic hear t disease of tangirnaq coronary artery without angina pectoris I25.10 [place] [id number] [address] 22 Apr, 2015 History of self-care deficit Z86.59 ; Hy pertrophy of nail L60.2 and Onychomycosis B35.1 [place] [address] [address] 16 Apr, 2015 [place] [address] [address] 15 Apr, 2015 Gastroenteritis K52.9 [place] [address] [address] Mar, [place] [address] [address] Mar, [place] [address] [address] Mar, [place] [address] [address] Mar, Acute pain due to injury G89.11 and Othe r chronic pain G89.29 [place] [address] [address] 12 Mar, 2015 [place] [address] [address] 08 Mar, 2015 [place] [address] [address] 08 Mar, 2015 [facility] [address] [address] 08 Mar, 2015 [place] [address] [address] Feb, Low back pain, unspecified back pain lat erality, with sciatica presence unspecified M54.5 [place] [address] [address] Feb, [place] [address] [address] Jan, [facility] [address] [address] Jan, Low back pain, unspecified back pain lat erality, with sciatica presence unspecified M54.5 [facility] [address] [address] Jan, Other chronic pain G89.29 and Acute pain due to injury G89.11 [facility] [address] [address] Dec, [facility] [address] [address] Nov, Essential hypertension I10 and Viral inf ection, unspecified B34.9 [facility] [address] [address] Nov, [facility] [address] [address] Nov, [facility] [address] [address] 30 Oct, 2014 [facility] [address] [address] 14 Oct, 2014 [facility] [address] [address] 08 Oct, 2014 [facility] [address] [address] 08 Oct, 2014 [facility] [address] [address] Sep, [facility] [address] [address] Sep, Hypertrophy of nail 703.8 and Self-care deficit for hygiene V40.39 [facility] [address] [address] Sep, [facility] [address] [address] Sep, [facility] [address] [place] [id number] [place] [address] Aug, [facility] [address] [place] [id number] [place] [address] Jul, Onychomycosis 110.1 and Ingrown nail 703 .0 [facility] [address] [place] [id number] [place] [address] Jul, Other screening mammogram V76.12 [facility] [address] [place] [id number] [place] [address] Jul, [facility] [address] [address] Jul, Hip pain 719.45 ; Visual disturbance 368 .9 and Conjunctivitis 372.30 [facility] [address] [place] [id number] [place] [address] June, [facility] [address] [place] [id number] [place] [address] June, [facility] [address] [place] [id number] [place] [address] June, [facility] [address] [place] [id number] [place] [address] June, [facility] [address] [place] [id number] [place] [address] May, [facility] [address] [place] [id number] [place] [address] May, [facility] [address] [place] [id number] [place] [address] Apr, [facility] [address] [place] [id number] [place] [address] Apr, [facility] [address] [place] [id number] [place] [address] Apr, [facility] [address] [place] [id number] [place] [address] Apr, [facility] [address] [id number] [place] [address] Mar, 2014 [facility] [address] [id number] [place] [address] Mar, [facility] [address] [id number] [place] [address] Feb, [facility] [address] [id number] [place] [address] Feb, [facility] [address] [id number] [place] [address] Feb, [facility] [address] [id number] [place] [address] Jan, [facility] [address] [id number] [place] [address] Jan, [facility] [address] [place] [id number] [place] [address] Jan, [facility] [address] [id number] [place] [address] Jan, [facility] [address] [place] [id number] [place] [address] Jan, [facility] [address] [id number] [place] [address] Jan, [facility] [address] [place] [id number] [place] [address] Dec, [facility] [address] [id number] [place] [address] Nov, [facility] [address] [id number] [place] [address] Nov, [facility] [address] [id number] [place] [address] Nov, [facility] [address] [id number] [place] [address] Nov, [facility] [address] [id number] [place] [address] Nov, [facility] [address] [facility] [id number] [place] [address] Nov, [facility] [address] [facility] [id number] [place] [address] Nov, [facility] [address] [id number] [place] [address] Nov, [facility] [address] [id number] [place] [address] Nov, [facility] [address] [facility] [id number] [place] [address] Nov, [facility] [address] [id number] [place] [address] Oct, [facility] [address] [id number] [place] [address] Oct, [facility] [address] [id number] [place] [address] 24 Oct, 2013 [facility] [address] [id number] [place] [address] 24 Oct, 2013 [facility] [address] [id number] [place] [address] 15 Oct, 2013 [facility] [address] [id number] [place] [address] 15 Oct, 2013 [facility] [address] [id number] [place] [address] Oct, 2013 [facility] [address] [id number] [place] [address] Oct, 2013 [facility] [address] [id number] [place] [address] Sep, [facility] [address] [id number] [place] [address] Sep, [facility] [address] [id number] [place] [address] Sep, [facility] [address] [id number] [place] [address] Sep, 2013 [facility] [address] [id number] [place] [address] Aug, [facility] [address] [facility] [id number] [place] [address] Aug, 2013 [facility] [address] [facility] [id number] [place] [address] Aug, [facility] [address] [facility] [id number] [place] [address] Aug, 2013 [facility] [address] [facility] [id number] [place] [address] Aug, [facility] [address] [id number] [place] [address] Aug, [facility] [address] [id number] [place] [address] Aug, [facility] [address] [id number] [place] [address] Aug, [facility] [address] [facility] [id number] [place] [address] Jul, [facility] [address] [id number] [place] [address] Jul, [facility] [address] [id number] [place] [address] Jul, [facility] [address] [facility] [id number] [place] [address] Jul, [facility] [address] [facility] [id number] [place] [address] Jul, [facility] [address] [id number] [place] [address] Jul, [facility] [address] [id number] [place] [address] Jul, [facility] [address] [id number] [place] [address] Jul, [facility] [address] [id number] [place] [address] Jul, [facility] [address] [id number] [place] [address] Jul, [facility] [address] [id number] [place] [address] Jul, [facility] [address] [id number] [place] [address] Jul, [facility] [address] [id number] [place] [address] Jul, [facility] [address] [id number] [place] [address] Jul, [facility] [address] [id number] [place] [address] Jul, [facility] [place] [facility] [address] [id number] [place] [address] Jul, [facility] [place] [facility] [address] [id number] [place] [address] Jul, [facility] [place] [facility] [address] [id number] [place] [address] June, [facility] [place] [facility] [address] [id number] [place] [address] June, [facility] [place] [facility] [address] [id number] [place] [address] May, [facility] [place] [facility] [address] [id number] [place] [address] May, [facility] [place] [facility] [address] [id number] [place] [address] May, [facility] [place] [facility] [address] [id number] [place] [address] May, [facility] [place] [facility] [address] [id number] [place] [address] Apr, [facility] [place] [facility] [address] [id number] [place] [address] 17 Apr, 2013 [facility] [place] [facility] [address] [facility] [id number] [place] [address] 13 Apr, 2013 [facility] [place] [facility] [address] [facility] [id number] [place] [address] 13 Apr, 2013 [facility] [place] [facility] [address] [id number] [place] [address] 11 Apr, 2013 [facility] [place] [facility] [address] [id number] [place] [address] 11 Apr, 2013 [facility] [place] [facility] [address] [facility] [id number] [place] [address] 10 Apr, 2013 [facility] [place] [facility] [address] [id number] [place] [address] 13 Mar, 2013 [facility] [place] [facility] [address] [id number] [place] [address] Mar, [facility] [place] [facility] [address] [id number] [place] [address] Mar, [facility] [place] [facility] [address] [id number] [place] [address] Mar, [facility] [place] [facility] [address] [id number] [place] [address] Feb, [facility] [place] [facility] [address] [id number] [place] [address] Feb, [facility] [place] [facility] [address] [id number] [place] [address] Feb, [facility] [place] [facility] [address] [facility] [id number] [place] [address] Feb, [facility] [place] [facility] [address] [id number] [place] [address] Jan, [facility] [place] [facility] [address] [facility] [id number] [place] [address] Jan, [facility] [place] [facility] [address] [id number] [place] [address] Jan, [facility] [place] [facility] [address] [id number] [place] [address] Jan, [facility] [place] [facility] [address] [id number] [place] [address] Dec, [facility] [place] [facility] [address] [id number] [place] [address] Dec, [facility] [place] [facility] [address] [id number] [place] [address] Dec, [facility] [place] [facility] [address] [id number] [place] [address] Dec, [facility] [place] [facility] [address] [id number] [place] [address] Dec, [facility] [place] [facility] [address] [id number] [place] [address] Nov, [facility] [place] [facility] [address] [id number] [place] [address] Nov, [facility] [place] [facility] [address] [id number] [place] [address] Nov, [facility] [place] [facility] [address] [id number] [place] [address] Nov, [facility] [place] [facility] [address] [id number] [place] [address] Nov, [facility] [place] [facility] [address] [id number] [place] [address] Nov, [facility] [place] [facility] [address] [id number] [place] [address] Nov, [facility] [place] [facility] [address] [id number] [place] [address] Nov, [facility] [place] [facility] [address] [id number] [place] [address] Oct, [facility] [place] [facility] [address] [id number] [place] [address] Oct, [facility] [place] [facility] [address] [id number] [place] [address] Sep, [facility] [place] [facility] [address] [id number] [place] [address] Sep, [facility] [place] [facility] [address] [facility] [id number] [place] [address] Sep, [facility] [place] [facility] [address] [facility] [id number] [place] [address] Sep, [facility] [place] [facility] [address] [id number] [place] [address] Sep, [facility] [place] [facility] [address] [facility] [id number] [place] [address] Sep, [facility] [place] [facility] [address] [id number] [place] [address] Sep, [facility] [place] [facility] [address] [id number] [place] [address] Aug, [facility] [place] [facility] [address] [id number] [place] [address] Aug, [facility] [place] [facility] [address] [facility] [id number] [place] [address] Aug, [facility] [place] [facility] [address] [id number] [place] [address] Aug, [facility] [place] [facility] [address] [id number] [place] [address] Aug, [facility] [place] [facility] [address] [id number] [place] [address] Aug, [facility] [place] [facility] [address] [facility] [id number] [place] [address] Aug, [facility] [place] [facility] [address] [id number] [place] [address] Aug, [facility] [place] [facility] [address] [facility] [id number] [place] [address] Jul, [facility] [place] [facility] [address] [id number] [place] [address] Jul, [facility] [place] [facility] [address] [id number] [place] [address] Jul, [facility] [address] [id number] [place] [address] Jul, [facility] [place] [facility] [address] [id number] [place] [address] June, [facility] [place] [facility] [address] [id number] [place] [address] June, [facility] [place] [facility] [address] [id number] [place] [address] June, [facility] [place] [facility] [address] [id number] [place] [address] June, [facility] [place] [facility] [address] [id number] [place] [address] June, [facility] [place] [facility] [address] [id number] [place] [address] May, [facility] [place] [facility] [address] [id number] [place] [address] May, [facility] [place] [facility] [address] [id number] [place] [address] May, [facility] [place] [facility] [address] [id number] [place] [address] May, [facility] [place] [facility] [address] [id number] [place] [address] Apr, [facility] [place] [facility] [address] [id number] [place] [address] Apr, [facility] [place] [facility] [address] [id number] [place] [address] Apr, [facility] [place] [facility] [address] [id number] [place] [address] Apr, [facility] [place] [facility] [address] [id number] [place] [address] Mar, [facility] [place] [facility] [address] [id number] [place] [address] Mar, [facility] [place] [facility] [address] [id number] [place] [address] 13 Mar, 2012 [facility] [place] [facility] [address] [id number] [place] [address] 07 Mar, 2012 [facility] [place] [facility] [address] [id number] [place] [address] 07 Feb, 2012 [facility] [place] [facility] [address] [id number] [place] [address] Jan, [facility] [place] [facility] [address] [id number] [place] [address] Jan, [facility] [place] [facility] [address] [id number] [place] [address] Jan, [facility] [place] [facility] [address] [id number] [place] [address] 29 Dec, 2011 [facility] [place] [facility] [id number] [place] [address] 29 Dec, 2011 [facility] [place] [facility] [address] [id number] [place] [address] Dec, [facility] [place] [facility] [address] [id number] [place] [address] 28 Dec, 2011 [facility] [place] [facility] [address] [id number] [place] [address] 15 Dec, 2011 [facility] [place] [facility] [address] [id number] [place] [address] 15 Dec, 2011 [facility] [place] [facility] [address] [id number] [place] [address] 14 Dec, 2011 [facility] [place] [facility] [address] [id number] [place] [address] 07 Dec, 2011 [facility] [place] [facility] [address] [id number] [place] [address] 07 Dec, 2011 [facility] [place] [facility] [address] [id number] [place] [address] 17 Nov, 2011 [facility] [place] [facility] [address] [id number] [place] [address] Nov, [facility] [place] [facility] [address] [facility] [id number] [place] [address] Nov, [facility] [place] [facility] [address] [id number] [place] [address] Nov, [facility] [place] [facility] [address] [id number] [place] [address] Nov, [facility] [place] [facility] [address] [id number] [place] [address] Nov, [facility] [place] [facility] [address] [facility] [id number] [place] [address] Oct, [facility] [place] [facility] [address] [id number] [place] [address] Sep, [facility] [place] [facility] [address] [id number] [place] [address] Sep, [facility] [place] [facility] [address] [id number] [place] [address] Aug, [facility] [place] [facility] [address] [id number] [place] [address] Aug, [facility] [place] [facility] [address] [id number] [place] [address] Aug, [facility] [place] [facility] [address] [id number] [place] [address] Aug, [facility] [place] [facility] [address] [id number] [place] [address] Aug, [facility] [place] [facility] [address] [id number] [place] [address] Jul, [facility] [place] [facility] [address] [id number] [place] [address] Jul, [facility] [place] [facility] [address] [id number] [place] [address] June, [facility] [place] [facility] [address] [id number] [place] [address] June, [facility] [place] [facility] [address] [id number] [place] [address] June, [facility] [place] [facility] [address] [id number] [place] [address] June, [facility] [place] [facility] [address] [id number] [place] [address] May, [facility] [place] [facility] [address] [id number] [place] [address] Apr, [facility] [place] [facility] [address] [id number] [place] [address] Apr, [facility] [place] [facility] [address] [id number] [place] [address] Apr, [facility] [place] [facility] [address] [id number] [place] [address] Apr, [facility] [place] [facility] [address] [id number] [place] [address] Apr, [facility] [place] [facility] [address] [id number] [place] [address] Mar, [facility] [place] [facility] [address] [id number] [place] [address] Mar, [facility] [place] [facility] [address] [id number] [place] [address] Mar, [facility] [place] [facility] [address] [id number] [place] [address] Feb, [facility] [place] [facility] [address] [id number] [place] [address] Feb, [facility] [place] [facility] [address] [id number] [place] [address] Feb, [facility] [place] [facility] [address] [id number] [place] [address] Feb, [facility] [place] [facility] [address] [id number] [place] [address] Feb, [facility] [place] [facility] [address] [id number] [place] [address] Feb, [facility] [address] [id number] [place] [address] 30 Jan, 2011 [facility] [address] [id number] [place] [address] Jan, [facility] [address] [id number] [place] [address] Jan, [facility] [address] [id number] [place] [address] Jan, [facility] [place] [facility] [address] [id number] [place] [address] Jan, [facility] [address] [id number] [place] [address] 16 Jul, 2010 [facility] [place] [facility] [address] [id number] [place] [address] June, [facility] [id number] [place] [address] Feb, [facility] [address] [id number] [place] [address] Jan, [facility] [address] [id number] [place] [address] Sep, [facility] [place] [facility] [address] [id number] [place] [address] Aug, [facility] [address] [id number] [place] [address] 14 May, 2009 [facility] [place] [facility] [address] [id number] [place] [address] 16 Apr, 2009 [facility] [place] [facility] [address] [id number] [place] [address] Jan, [facility] [place] [facility] [address] [id number] [place] [address] Jan, [facility] [place] [facility] [address] [id number] [place] [address] Jan, [facility] [place] [facility] [address] [id number] [place] [address] Dec, [facility] [address] [id number] [place] [address] Dec, [facility] [address] [id number] [place] [address] Nov, [facility] [address] [id number] [place] [address] Nov, [facility] [address] [id number] [place] [address] Nov, IMMUNIZATIONS No Known Immunizations SOCIAL HISTORY [...] Surgical History rectocele/cystocele repair, pessary fitt ed ([facility]) 05/2013 Surgical History Suspicious lesion removal 2016 Surgical History heart cath 03/03/2019 Hospitalization History [facility] acute gastoentereritis, dehydrati on 06/06 Hospitalization History Heart Cath 2013 Hospitalization History ER visit- 09/2018
--- OUTSIDE RECORDS SUMMARY | 2019-07-19 09:11 | XMS REPORT ---
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 Active [id number] Problem Other chronic pain G89.29 Active 8 7978775 Problem Episodic cluster headache, not intractable G44.019 Active 447269314 Problem Lumbago with sciatica, left side M54.42 Active 901001900 Problem Acute bilateral low back pain with left-sided sciatica M54.42 Active 99339737 Problem Anxiety F41.9 Active 70312366 Problem Lumbago with sciatica, right side M54.41 Active 681231587 Problem 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.0 Active 509315641 Problem Major depressive disorder, recurrent, mild F33.0 Active 079931935 Problem History of diabetes mellitus, type II Z86.39 Active 550979867 Problem Hyperlipidemia, unspecified hyperlipidemia type E7 8.5 Active 75526090 Problem Seasonal allergic rhinitis due to pollen J30.1 Active 37953072 Problem Essential hypertension I10 Active 50480490 Problem COPD exacerbation J44.1 Active 29 [id number] Problem Chronic obstructive pulmonary disease, unspecified COPD ty pe J44.9 Active 12610774 Problem Other chronic pain G89.29 Active 8 6587481 Problem Hypoglycemia E16.2 Active 2467977 03 Problem 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 Active 269292405791 7 Problem Primary osteoarthritis of right knee M17.11 Active [id number] ALLERGIES No Information ENCOUNTERS Encounter Location Date Diagnosis [facility] [address] [facility] [id number] [address] [place] [phone] Apr, Chronic obstructive pulmonar y disease, unspecified COPD type J44.9 and 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.118 [place] [address] [address] [place] [id number] [address] [place] [id number] 10 Apr, 2019 Low back pain, unspecified b ack pain laterality, with sciatica presence unspecified M54.5 ; Onychomycosis B35.1 ; Other chronic pain G89.29 ; Chronic obstructive pulmonary disease, unspecified COPD type J44.9 ; Essential hypertension I10 ; Family history of diabetes mellitus Z83.3 ; Hyperlipidemia, unspecified hyperlipidemia type E78.5 ; Anxiety F41.9 and 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 [place] [address] [address] Mar, Primary osteoarthritis of ri t knee M17.[address] [address] Mar, [place] [address] [address] [place] [id number] [address] [place] [address] Feb, Onychomycosis B35.1 ; Nail h ypertrophy L60.2 and Self-care deficit for grooming and hygiene Z74.1 [place] [address] [address] [place] [id number] [address] [place] [address] Jan, Posterior right knee pain M2 5.561 ; Pain in left leg M79.605 ; Pain in right leg M79.604 ; 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.118 and Encounter for immunization Z23 [place] [address] [address] Dec, Nail hypertrophy L60.2 ; Lakshmi chomycosis B35.1 and Self-care deficit for grooming and hygiene Z74.1 [place] [address] [address] [place] [id number] [address] [place] [id number] Oct, [place] [address] [address] Sep, Other chest pain R07.89 [place] [address] [address] Sep, [facility] [address] [address] Sep, Cellulitis of groin L03.314 [place] [address] [address] Sep, Nail hypertrophy L60.2 and S elf-care deficit for grooming and hygiene Z74.1 [place] [address] [address] Aug, [place] [address] [address] Aug, Hypoglycemia E16.2 ; Nonintr actable episodic headache, unspecified headache type R51 and Candidiasis of breast B37.89 [place] [address] [address] Aug, Nail hypertrophy L60.2 and S elf-care deficit for grooming and hygiene Z74.1 [place] [address] [address] June, [facility] [address] [address] May, Bee sting, accidental or uni ntentional, initial encounter T63.441A [place] [address] [address] Apr, Primary osteoarthritis invol ving multiple joints M15.0 ; Angina pectoris, unspecified I20.9 ; History of diabetes mellitus, type II Z86.39 and Chronic obstructive pulmonary disease, unspecified COPD type J44.9 [place] [address] [address] Apr, Nail hypertrophy L60.2 and S elf-care deficit for grooming and hygiene Z74.1 [facility] [address] [id number] [address] [place] [address] Mar, [facility] [address] [facility] [id number] [address] [place] [id number] 13 Mar, 2018 Low back pain M54.5 [facility] [address] [facility] [id number] [address] [place] [phone] Mar, [facility] [address] [id number] [address] [place] [id number] Feb, [facility] [address] [facility] [id number] [address] [place] [id number] Feb, [facility] [address] [facility] [id number] [address] [place] [address] Feb, [facility] Z00.00 ; Major depressive disorder, recurrent, mild F33.0 ; Chronic obstructive pulmonary disease, unspecified COPD type J44.9 ; 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 ; Primary osteoarthritis involving multiple joints M15.0 ; Angina pectoris, unspecified I20.9 and 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 [facility] [address] [facility] [id number] [address] [place] [phone] Jan, [facility] [address] [facility] [id number] [address] [place] [phone] Jan, [facility] [address] [facility] [id number] [address] [place] [address] Dec, Chronic obstructive pulmonar y disease, unspecified COPD type J44.9 ; Low back pain M54.5 ; Other chronic pain G89.29 and Moderate episode of recurrent major depressive disorder F33.1 [facility] [address] [facility] [id number] [address] [place] [phone] Nov, [facility] [address] [facility] [id number] [address] [place] [address] Nov, Encounter for immunization Z 23 [facility] [address] [id number] [address] [place] [address] Nov, Allergic rhinitis due to ned iona, unspecified seasonality J30.1 ; Primary osteoarthritis involving multiple joints M15.0 and Encounter for immunization Z23 [facility] [address] [id number] [address] [place] [address] Oct, Nail hypertrophy L60.2 and S elf-care deficit for hygiene R46.0 [facility] [address] [id number] [address] [place] [id number] 05 Oct, 2017 Chest congestion R09.89 ; So re throat J02.9 and Cough R05 [facility] [address] [id number] [address] [place] [phone] Sep, [facility] [address] [id number] [address] [place] [address] Aug, Low back pain M54.5 ; Other chronic pain G89.29 ; Pain in right knee M25.561 ; Pain in left knee M25.562 and Rash R21 [facility] [address] [id number] [address] [place] [address] Aug, Nail hypertrophy L60.2 and S elf-care deficit for hygiene R46.0 [facility] [address] [id number] [address] [place] [phone] June, Hypertrophy of nail L60.2 an d Self-care deficit for hygiene R46.0 [facility] [address] [id number] [address] [place] [phone] June, [facility] [address] [facility] [id number] [address] [place] [address] June, COPD exacerbation J44.1 [facility] [address] [facility] [id number] [address] [place] [id number] May, [facility] [address] [facility] [id number] [address] [place] [address] Apr, Seasonal allergic rhinitis d ue to pollen J30.1 ; Encounter for immunization Z23 ; COPD exacerbation J44.1 ; Encounter for screening mammogram for breast cancer Z12.31 and Colon cancer screening Z12.11 [place] [address] [address] Apr, [place] [address] [address] Feb, Lumbago with sciatica, right side M54.41 ; Lumbago with sciatica, left side M54.42 ; Other chronic pain G89.29 ; Left hip pain M25.552 and Anxiety F41.9 [facility] [place] [address] [address] 20 Jan, 2017 History of asthma Z87.09 ; C OPD exacerbation J44.1 and Acute non-recurrent maxillary sinusitis J01.00 [place] [address] [address] 20 Jan, 2017 Other chronic pain G89.29 an d Acute bilateral low back pain with left-sided sciatica M54.42 [place] [address] [address] 14 Jan, 2017 Other chronic pain G89.29 an d Acute bilateral low back pain with left-sided sciatica M54.42 [place] [address] [address] 08 Dec, 2016 Trochanteric bursitis of lef t hip M70.62 ; Left hip pain M25.552 and Other chronic pain G89.29 [facility] [address] [address] 27 Nov, 2016 Local reaction to insect sti ng, accidental or unintentional, initial encounter T63.481A and Acute dermatitis L30.9 [place] [address] [address] 18 Nov, 2016 Breast cancer screening Z12. 31 [facility] [address] [id number] [address] [place] [phone] Nov, Acute bilateral low back rangel n with left-sided sciatica M54.42 and Low back pain, unspecified back pain laterality, with sciatica presence unspecified M54.5 [facility] [address] [id number] [address] [place] [id number] Oct, Acute bilateral low back rangel n with left-sided sciatica M54.42 [facility] [address] [id number] [address] [place] [id number] Sep, Low back pain, unspecified b ack pain laterality, with sciatica presence unspecified M54.5 [place] [address] [id number] [address] [place] [phone] Sep, [place] [address] [id number] [address] [place] [address] Aug, Nail hypertrophy L60.2 ; Lakshmi chomycosis B35.1 and Self-care deficit for hygiene R46.0 [place] [address] [id number] [address] [place] [phone] Aug, [facility] [address] [id number] [address] [place] [address] Aug, [facility] [address] [id number] [address] [place] [address] Jul, Rash R21 [facility] [address] [id number] [address] [place] [phone] Jul, [place] [address] [id number] [address] [place] [id number] Jul, Low back pain, unspecified b ack pain laterality, with sciatica presence unspecified M54.5 [place] [address] [id number] [address] [place] [phone] June, Nail hypertrophy L60.2 ; Marilee f-care deficit for hygiene R46.0 and Other chronic pain G89.29 [facility] [address] [id number] [address] [place] [address] June, Low back pain, unspecified b ack pain laterality, with sciatica presence unspecified M54.5 [facility] [address] [id number] [address] [place] [phone] May, [facility] [address] [id number] [address] [place] [phone] May, [facility] [address] [id number] [address] [place] [phone] May, [facility] [address] [id number] [address] [place] [phone] May, Low back pain, unspecified b ack pain laterality, with sciatica presence unspecified M54.5 [facility] [address] [id number] [address] [place] [address] Apr, Breast pain, left N64.4 ; Le ft arm pain M79.602 and Family history of diabetes mellitus Z83.3 [facility] [address] [id number] [address] [place] [id number] Apr, Low back pain, unspecified b ack pain laterality, with sciatica presence unspecified M54.5 [place] [address] [id number] [address] [place] [id number] Apr, [facility] [address] [id number] [address] [place] [address] Mar, Onychomycosis B35.1 and Self -care deficit for hygiene R46.0 [facility] [address] [id number] [address] [place] [id number] 17 Mar, 2016 Low back pain, unspecified b ack pain laterality, with sciatica presence unspecified M54.5 [facility] [address] [id number] [address] [place] [address] Mar, Pain in left shoulder M25.51 2 and Other chronic pain G89.29 [facility] [address] [id number] [address] [place] [address] 13 Mar, 2016 Arthralgia, unspecified join t M25.50 [facility] [address] [id number] [address] [place] [id number] 06 Mar, 2016 [facility] [address] [id number] [address] [place] [id number] Feb, Low back pain, unspecified b ack pain laterality, with sciatica presence unspecified M54.5 [facility] [address] [id number] [address] [place] [id number] Feb, [facility] [id number] [place] [id number] Feb, Dental examination Z01.20 [facility] [id number] [place] [id number] Feb, Dental examination Z01.20 [facility] [address] [id number] [address] [place] [phone] Feb, Cramp of both lower extremit ies R25.2 [facility] [address] [id number] [address] [place] [phone] Feb, [facility] [address] [id number] [address] [place] [address] Jan, Hypoxemia R09.02 ; Episodic cluster headache, not intractable G44.019 and Cramp of both lower extremities R25.2 [facility] [address] [id number] [address] [place] [address] Jan, [facility] [address] [id number] [address] [place] [address] Jan, Low back pain, unspecified b ack pain laterality, with sciatica presence unspecified M54.5 [facility] [address] [id number] [address] [place] [address] Jan, Hypertrophy of nail L60.2 ; Onychomycosis B35.1 and Self-care deficit for hygiene R46.0 [place] [address] [facility] [id number] [address] [place] [address] Jan, Low back pain, unspecified b ack pain laterality, with sciatica presence unspecified M54.5 [place] [address] [place] [id number] [address] [place] [address] Dec, Low back pain, unspecified b ack pain laterality, with sciatica presence unspecified M54.5 [facility] [address] [facility] [id number] [address] [place] [id number] Dec, Bug bite with infection, ini tial encounter W57.XXXA [place] [address] [place] [id number] [address] [place] [address] Nov, Low back pain, unspecified b ack pain laterality, with sciatica presence unspecified M54.5 [place] [address] [facility] [id number] [address] [place] [address] Nov, [place] [address] [facility] [id number] [address] [place] [address] Nov, Chronic obstructive pulmonar y disease, unspecified COPD type J44.9 [place] [address] [facility] [id number] [address] [place] [address] Nov, [place] [address] [facility] [id number] [address] [place] [id number] 14 Oct, 2015 [place] [address] [id number] [address] [place] [id number] 08 Oct, 2015 Onychomycosis B35.1 and Ingr own nail L60.0 [place] [address] [id number] [address] [place] [id number] 02 Oct, 2015 Low back pain, unspecified b ack pain laterality, with sciatica presence unspecified M54.5 [place] [address] [id number] [address] [place] [id number] Sep, [facility] [address] [facility] [id number] [address] [place] [phone] Sep, Low back pain, unspecified b ack pain laterality, with sciatica presence unspecified M54.5 [facility] [address] [id number] [address] [place] [phone] Aug, [facility] [address] [facility] [id number] [address] [place] [id number] Aug, Cramp of both lower extremit ies R25.2 ; Breast cancer screening Z12.39 ; Hyperlipidemia, unspecified hyperlipidemia type E78.5 and Atypical mole L81.9 [facility] [address] [facility] [id number] [address] [place] [id number] Aug, Chronic obstructive pulmonar y disease, unspecified COPD type J44.9 [facility] [address] [facility] [id number] [address] [place] [phone] Aug, Low back pain, unspecified b ack pain laterality, with sciatica presence unspecified M54.5 [place] [address] [facility] [id number] [address] [place] [address] Aug, 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 [facility] [address] [facility] [id number] [address] [place] [address] Jul, [facility] [address] [id number] [address] [place] [id number] Jul, [facility] [address] [facility] [id number] [address] [place] [address] Jul, Allergic rhinitis, unspecifi ed allergic rhinitis type J30.9 [facility] [address] [id number] [address] [place] [address] Jul, Low back pain, unspecified b ack pain laterality, with sciatica presence unspecified M54.5 [place] [address] [facility] [id number] [address] [place] [id number] Jul, Post-concussion headache G44 .309 and Arthralgia, unspecified joint M25.50 [facility] [address] [facility] [id number] [address] [place] [address] 24 Jun, 2015 Chronic obstructive pulmonar y disease, unspecified COPD type J44.9 [place] [id number] [place] [address] June, [place] [address] [address] May, [place] [address] [address] May, [place] [address] [address] 30 Apr, 2015 Hip pain 719.45 and Atherosc lerotic heart disease of cheesh-na coronary artery without angina pectoris I25.10 [place] [address] [place] [id number] [address] [place] [address] Apr, History of self-care deficit Z86.59 ; Hypertrophy of nail L60.2 and Onychomycosis B35.1 [place] [address] [place] [id number] [address] [place] [address] Apr, [place] [address] [address] Apr, Gastroenteritis K52.9 [place] [address] [place] [id number] [address] [place] [address] Mar, [place] [address] [address] Mar, [place] [address] [place] [id number] [address] [place] [address] Mar, [place] [address] [address] Mar, Acute pain due to injury G89 .11 and Other chronic pain G89.29 [facility] [address] [id number] [address] [place] [id number] Mar, [facility] [address] [id number] [address] [place] [phone] Mar, [facility] [address] [id number] [address] [place] [phone] Mar, [facility] [address] [id number] [address] [place] [address] Mar, [facility] [address] [id number] [address] [place] [address] Feb, Low back pain, unspecified b ack pain laterality, with sciatica presence unspecified M54.5 [facility] [address] [facility] [id number] [address] [place] [phone] Feb, [facility] [address] [id number] [address] [place] [phone] Jan, [facility] [address] [facility] [id number] [address] [place] [address] Jan, Low back pain, unspecified b ack pain laterality, with sciatica presence unspecified M54.5 [facility] [address] [facility] [id number] [address] [place] [phone] Jan, Other chronic pain G89.29 an d Acute pain due to injury G89.11 [facility] [address] [id number] [address] [place] [id number] Dec, [facility] [address] [facility] [id number] [address] [place] [id number] Nov, Essential hypertension I10 a nd Viral infection, unspecified B34.9 [facility] [address] [facility] [id number] [address] [place] [phone] Nov, [facility] [address] [id number] [address] [place] [phone] Nov, [facility] [address] [facility] [id number] [address] [place] [phone] 30 Oct, 2014 [facility] [address] [facility] [id number] [address] [place] [phone] Oct, [facility] [address] [facility] [id number] [address] [place] [address] [id number] Oct, [facility] [address] [id number] [address] [place] [phone] Oct, [facility] [address] [facility] [id number] [address] [place] [phone] Sep, [facility] [address] [facility] [id number] [address] [place] [id number] Sep, Hypertrophy of nail 703.8 an d Self-care deficit for hygiene V40.39 [facility] [address] [id number] [address] [place] [phone] Sep, [facility] [address] [facility] [id number] [address] [place] [phone] Sep, [facility] [address] [facility] [id number] [address] [place] [phone] Aug, [facility] [address] [id number] [address] [place] [phone] Jul, Onychomycosis 110.1 and Ingr own nail 703.0 [facility] [address] [facility] [id number] [address] [place] [phone] Jul, Other screening mammogram V7 6.12 [facility] [address] [facility] [id number] [address] [place] [phone] Jul, [facility] [address] [facility] [id number] [address] [place] [phone] Jul, Hip pain 719.45 ; Visual dis turbance 368.9 and Conjunctivitis 372.30 [facility] [address] [id number] [address] [place] [address], [place] [id number] June, [facility] [address] [id number] [address] [place] [address], [place] [id number] June, [facility] [address] [id number] [address] [place] [address], [place] [id number] June, [facility] [address] [id number] [address] [place] [address], [place] [id number] June, [facility] [address] [id number] [address] [place] [address], [place] [id number] May, [facility] [address] [id number] [address] [place] [address], [place] [id number] May, [facility] [address] [id number] [address] [place] [address], [place] [id number] Apr, [facility] [address] [id number] [address] [place] [phone] Apr, [facility] [address] [id number] [address] [place] [address], [place] [id number] Apr, [facility] [address] [id number] [address] [place] [phone] Apr, [facility] [address] [id number] [address] [place] [phone] Mar, [facility] [address] [id number] [address] [place] [phone] Mar, [facility] [address] [id number] [address] [place] [address], [place] [id number] Feb, [facility] [address] [id number] [address] [place] [phone] Feb, [facility] [address] [id number] [address] [place] [address], [place] [id number] Feb, [facility] [address] [id number] [address] [place] [address], [place] [id number] Jan, [facility] [address] [id number] [address] [place] [address], [place] [id number] Jan, [facility] [address] [id number] [address] [place] [address], [place] [id number] Jan, [facility] [address] [id number] [address] [place] [address], [place] [id number] Jan, [facility] [address] [id number] [address] [place] [address], [place] [id number] Jan, [facility] [address] [id number] [address] [place] [address], [place] [id number] Jan, [facility] [address] [id number] [address] [place] [address], [place] [id number] Dec, [facility] [address] [id number] [address] [place] [address], [place] [id number] Nov, [facility] [address] [id number] [address] [place] [address], [place] [phone] Nov, [facility] [address] [id number] [address] [place] [address], [place] [phone] Nov, [facility] [address] [id number] [address] [place] [address], [place] [id number] Nov, [facility] [address] [id number] [address] [place] [address], [place] [id number] Nov, [facility] [address] [id number] [address] [place] [address], [place] [id number] Nov, [facility] [address] [id number] [address] [place] [address], [place] [id number] Nov, [facility] [address] [id number] [address] [place] [address], [place] [phone] Nov, [facility] [address] [id number] [address] [place] [address], [place] [phone] Nov, [facility] [address] [id number] [address] [place] [address], [place] [id number] Nov, [facility] [address] [id number] [address] [place] [address], [place] [id number] Oct, [facility] [address] [id number] [address] [place] [address], [place] [id number] Oct, [facility] [address] [id number] [address] [place] [address], [place] [id number] Oct, [facility] [address] [id number] [address] [place] [address], [place] [id number] Oct, [facility] [address] [id number] [address] [place] [address], [place] [id number] Oct, [facility] [address] [id number] [address] [place] [address], [place] [id number] Oct, [facility] [address] [id number] [address] [place] [address], [place] [id number] Oct, [facility] [address] [id number] [address] [place] [address], [place] [id number] Oct, [facility] [address] [id number] [address] [place] [address], [place] [id number] Sep, [facility] [address] [id number] [address] [place] [address], [place] [id number] Sep, [facility] [address] [id number] [address] [place] [address], [place] [id number] Sep, [facility] [address] [id number] [address] [place] [address], [place] [id number] Sep, [facility] [address] [id number] [address] [place] [address], [place] [phone] Aug, [facility] [address] [id number] [address] [place] [address], [place] [phone] Aug, [facility] [address] [id number] [address] [place] [address], [place] [id number] Aug, [facility] [address] [id number] [address] [place] [address], [place] [id number] Aug, [facility] [address] [id number] [address] [place] [address], [place] [phone] Aug, [facility] [address] [id number] [address] [place] [address], [place] [phone] Aug, [facility] [address] [id number] [address] [place] [address], [place] [id number] Aug, [facility] [address] [id number] [address] [place] [address], [place] [phone] Aug, [facility] [address] [id number] [address] [place] [address], [place] [id number] Jul, [facility] [address] [id number] [address] [place] [address], [place] [id number] Jul, [facility] [address] [id number] [address] [place] [address], [place] [phone] Jul, [facility] [address] [id number] [address] [place] [address], [place] [phone] Jul, [facility] [address] [id number] [address] [place] [address], [place] [phone] Jul, [facility] [address] [id number] [address] [place] [address], [place] [id number] Jul, [facility] [address] [id number] [address] [place] [address], [place] [id number] Jul, [facility] [address] [id number] [address] [place] [address], [place] [id number] Jul, [facility] [address] [id number] [address] [place] [address], [place] [id number] Jul, [facility] [address] [id number] [address] [place] [address], [place] [id number] Jul, [facility] [address] [id number] [facility] [place] [id number] 09 Jul, 2013 [facility] [address] [id number] [address] [place] [address], [place] [id number] Jul, [facility] [address] [id number] [address] [place] [address], [place] [id number] 05 Jul, 2013 [facility] [address] [id number] [address] [place] [address], [place] [id number] Jul, [facility] [address] [id number] [address] [place] [address], [place] [id number] Jul, [facility] [address] [id number] [address] [place] [address], [place] [id number] Jul, [facility] [address] [id number] [address] [place] [address], [place] [id number] Jul, [facility] [address] [id number] [address] [place] [address], [place] [id number] June, [facility] [address] [id number] [address] [place] [address], [place] [id number] June, [facility] [address] [id number] [address] [place] [address], [place] [id number] May, [facility] [address] [id number] [address] [place] [address], [place] [id number] May, [facility] [address] [id number] [address] [place] [address], [place] [id number] May, [facility] [address] [id number] [address] [place] [address], [place] [id number] May, [facility] [address] [id number] [address] [place] [address], [place] [id number] 17 Apr, 2013 [facility] [address] [id number] [address] [place] [address], [place] [id number] 17 Apr, 2013 [facility] [address] [id number] [address] [place] [address], [place] [id number] 13 Apr, 2013 [facility] [address] [id number] [facility] [place] [id number] 13 Apr, 2013 [facility] [address] [id number] [address] [place] [address], [place] [id number] Apr, [facility] [address] [id number] [address] [place] [address], [place] [id number] Apr, [facility] [address] [id number] [address] [place] [address], [place] [phone] Apr, [facility] [address] [id number] [address] [place] [address], [place] [id number] Mar, [facility] [address] [id number] [address] [place] [address], [place] [id number] Mar, [facility] [address] [id number] [address] [place] [address], [place] [id number] Mar, [facility] [address] [id number] [address] [place] [address], [place] [id number] Mar, [facility] [address] [id number] [address] [place] [address], [place] [id number] Feb, [facility] [address] [id number] [address] [place] [address], [place] [id number] Feb, [facility] [address] [id number] [address] [place] [address], [place] [id number] Feb, [facility] [address] [id number] [address] [place] [address], [place] [id number] Feb, [facility] [address] [id number] [address] [place] [address], [place] [phone] Jan, [facility] [address] [id number] [address] [place] [address], [place] [id number] Jan, [facility] [address] [id number] [address] [place] [address], [place] [id number] Jan, [facility] [address] [id number] [address] [place] [address], [place] [id number] Jan, [facility] [address] [id number] [address] [place] [address], [place] [phone] Dec, [facility] [address] [id number] [address] [place] [address], [place] [id number] Dec, [facility] [address] [id number] [address] [place] [address], [place] [id number] Dec, [facility] [address] [id number] [address] [place] [address], [place] [id number] Dec, [facility] [address] [id number] [address] [place] [address], [place] [id number] Dec, [facility] [address] [id number] [address] [place] [address], [place] [id number] Nov, [facility] [address] [id number] [address] [place] [address], [place] [id number] Nov, [facility] [address] [id number] [address] [place] [address], [place] [phone] Nov, [facility] [address] [id number] [address] [place] [address], [place] [id number] Nov, [facility] [address] [id number] [address] [place] [address], [place] [phone] Nov, [facility] [address] [id number] [address] [place] [address], [place] [phone] Nov, [facility] [address] [id number] [address] [place] [address], [place] [phone] Nov, [facility] [address] [id number] [address] [place] [address], [place] [id number] Nov, [facility] [address] [id number] [address] [place] [address], [place] [id number] Oct, [facility] [address] [id number] [address] [place] [address], [place] [id number] Oct, [facility] [address] [id number] [address] [place] [address], [place] [id number] Sep, [facility] [address] [id number] [address] [place] [address], [place] [id number] Sep, [facility] [address] [id number] [address] [place] [address], [place] [id number] Sep, [facility] [address] [id number] [address] [place] [address], [place] [address] Sep, [facility] [address] [id number] [address] [place] [address], [place] [address] Sep, [facility] [address] [id number] [address] [place] [address], [place] [id number] Sep, [facility] [address] [id number] [address] [place] [address], [place] [id number] Sep, [facility] [address] [id number] [address] [place] [address], [place] [id number] Aug, [facility] [address] [id number] [address] [place] [address], [place] [id number] Aug, [facility] [address] [id number] [address] [place] [address], [place] [id number] Aug, [facility] [address] [id number] [address] [place] [address], [place] [id number] Aug, [facility] [address] [id number] [address] [place] [address], [place] [id number] Aug, [facility] [address] [id number] [address] [place] [address], [place] [address] Aug, [facility] [address] [id number] [address] [place] [address], [place] [id number] Aug, [facility] [address] [id number] [address] [place] [address], [place] [id number] Aug, [facility] [address] [id number] [address] [place] [address], [place] [id number] 15 Jul, 2012 [facility] [address] [id number] [address] [place] [address], [place] [id number] 14 Jul, 2012 [facility] [address] [id number] [address] [place] [address], [place] [id number] Jul, [facility] [address] [id number] [address] [place] [address], [place] [id number] Jul, [facility] [address] [id number] [address] [place] [address], [place] [id number] June, [facility] [address] [id number] [address] [place] [address], [place] [id number] June, [facility] [address] [id number] [address] [place] [address], [place] [id number] June, [facility] [address] [id number] [address] [place] [address], [place] [id number] June, [facility] [address] [id number] [address] [place] [address], [place] [id number] June, [facility] [address] [id number] [address] [place] [address], [place] [id number] May, [facility] [address] [id number] [address] [place] [address], [place] [id number] May, [facility] [address] [id number] [address] [place] [address], [place] [id number] May, [facility] [address] [id number] [address] [place] [address], [place] [id number] May, [facility] [address] [id number] [address] [place] [address], [place] [id number] Apr, [facility] [address] [id number] [address] [place] [address], [place] [id number] Apr, [facility] [address] [id number] [address] [place] [address], [place] [id number] Apr, [facility] [address] [id number] [address] [place] [address], [place] [id number] 07 Apr, 2012 [facility] [address] [id number] [address] [place] [address], [place] [id number] 21 Mar, 2012 [facility] [address] [id number] [address] [place] [address], [place] [id number] 15 Mar, 2012 [facility] [address] [id number] [address] [place] [address], [place] [id number] 13 Mar, 2012 [facility] [address] [id number] [address] [place] [address], [place] [id number] 07 Mar, 2012 [facility] [address] [id number] [address] [place] [address], [place] [id number] 07 Feb, 2012 [facility] [address] [id number] [address] [place] [address], [place] [id number] 12 Jan, 2012 [facility] [address] [id number] [address] [place] [address], [place] [id number] 12 Jan, 2012 [facility] [address] [id number] [address] [place] [address], [place] [id number] 07 Jan, 2012 [facility] [address] [id number] [address] [place] [address], [place] [id number] 29 Dec, 2011 [facility] [address] [id number] [address] [place] [address], [place] [id number] 29 Dec, 2011 [facility] [address] [id number] [address] [place] [address], [place] [id number] 28 Dec, 2011 [facility] [address] [id number] [address] [place] [address], [place] [id number] 28 Dec, 2011 [facility] [address] [id number] [address] [place] [address], [place] [id number] 15 Dec, 2011 [facility] [address] [id number] [address] [place] [address], [place] [id number] 15 Dec, 2011 [facility] [address] [id number] [address] [place] [address], [place] [id number] 14 Dec, 2011 [facility] [address] [id number] [address] [place] [address], [place] [id number] 07 Dec, 2011 [facility] [address] [id number] [address] [place] [address], [place] [id number] 07 Dec, 2011 [facility] [address] [id number] [address] [place] [address], [place] [id number] 17 Nov, 2011 [facility] [address] [id number] [address] [place] [address], [place] [id number] 17 Nov, 2011 [facility] [address] [id number] [address] [place] [address], [place] [id number] Nov, [facility] [address] [id number] [address] [place] [address], [place] [id number] Nov, [facility] [address] [id number] [address] [place] [address], [place] [id number] Nov, [facility] [address] [id number] [address] [place] [address], [place] [id number] Nov, [facility] [address] [id number] [address] [place] [address], [place] [id number] Oct, [facility] [address] [id number] [address] [place] [address], [place] [id number] Sep, [facility] [address] [id number] [address] [place] [address], [place] [id number] Sep, [facility] [address] [id number] [address] [place] [address], [place] [id number] Aug, [facility] [address] [id number] [address] [place] [address], [place] [id number] Aug, [facility] [address] [id number] [address] [place] [address], [place] [id number] Aug, [facility] [address] [id number] [address] [place] [address], [place] [id number] Aug, [facility] [address] [id number] [address] [place] [address], [place] [id number] Aug, [facility] [address] [id number] [address] [place] [address], [place] [id number] Jul, [facility] [address] [id number] [address] [place] [address], [place] [id number] Jul, [facility] [address] [id number] [address] [place] [address], [place] [id number] June, [facility] [address] [id number] [address] [place] [address], [place] [id number] June, [facility] [address] [id number] [address] [place] [address], [place] [id number] June, [facility] [address] [id number] [address] [place] [address], [place] [id number] June, [facility] [address] [id number] [address] [place] [address], [place] [id number] May, [facility] [address] [id number] [address] [place] [address], [place] [id number] Apr, [facility] [address] [id number] [address] [place] [address], [place] [id number] Apr, [facility] [address] [id number] [address] [place] [address], [place] [id number] Apr, [facility] [address] [id number] [address] [place] [address], [place] [id number] Apr, [facility] [address] [id number] [address] [place] [address], [place] [id number] Apr, [facility] [address] [id number] [address] [place] [address], [place] [id number] Mar, [facility] [address] [id number] [address] [place] [address], [place] [id number] Mar, [facility] [address] [id number] [address] [place] [address], [place] [id number] Mar, [facility] [address] [id number] [address] [place] [address], [place] [id number] Feb, [facility] [address] [id number] [address] [place] [address], [place] [id number] Feb, [facility] [address] [id number] [address] [place] [address], [place] [id number] Feb, [facility] [address] [id number] [address] [place] [address], [place] [id number] Feb, [facility] [facility] [address] [id number] [address] [place] [address], [place] [id number] Feb, [facility] [address] [id number] [address] [place] [address], [place] [id number] Feb, [facility] [address] [id number] [address] [place] [address], [place] [id number] Jan, [facility] [address] [id number] [address] [place] [address], [place] [id number] Jan, [facility] [address] [id number] [address] [place] [address], [place] [id number] Jan, [facility] [address] [id number] [address] [place] [address], [place] [id number] Jan, [facility] [address] [id number] [address] [place] [address], [place] [id number] Jan, [facility] [address] [id number] [address] [place] [address], [place] [id number] Jul, [facility] [address] [id number] [address] [place] [address], [place] [id number] June, [facility] [address] [id number] [address] [place] [address], [place] [id number] Feb, [facility] [address] [id number] [address] [place] [address], [place] [id number] Jan, [facility] [address] [id number] [address] [place] [id number] Sep, [facility] [address] [id number] [address] [place] [phone] Aug, [facility] [address] [id number] [address] [place] [phone] May, [facility] [address] [id number] [address] [place] [phone] Apr, [facility] [address] [id number] [address] [place] [id number] Jan, [facility] [address] [id number] [address] [place] [id number] Jan, [facility] [address] [id number] [address] [place] [phone] Jan, [facility] [address] [id number] [address] [place] [phone] Dec, [facility] [address] [id number] [address] [place] [phone] Dec, [facility] [address] [id number] [address] [place] [phone] Nov, [facility] [address] [id number] [address] [place] [id number] Nov, [facility] [address] [id number] [address] [place] [id number] Nov, IMMUNIZATIONS No Known Immunizations SOCIAL HISTORY [...] Surgical History rectocele/cystocele repair, pessary fitt ed ([facility]) 05/2013 Surgical History Suspicious lesion removal 2015 Surgical History heart cath 03/03/2019 Hospitalization History [facility] acute gastoentereritis, dehydrati on 06/06 Hospitalization History Heart Cath 2013 Hospitalization History ER visit- 09/2018
--- OUTSIDE RECORDS SUMMARY | 2019-07-19 09:11 | XMS REPORT ---
Author Author Juanita PATIÑO Organization [facility] Address [address] [place] [address] Care Team Providers Care Sleep Technician Name Role Phone FUENTES PATIÑO Unavailable PROBLEMS Type Condition ICD9-CM Code GFO38-EK Code Onset Dates Condition S tatus SNOMED Code Problem Angina pectoris, unspecified I20.9 A ctive 575132376 Problem Atherosclerotic heart diseas e of [place] coronary artery without angina pectoris I25.10 Active 0776803040921 Problem Other chronic pain G89.29 Active 8 8369558 Problem Episodic cluster headache, not intractable G44.019 Active 367536108 Problem Lumbago with sciatica, left side M54.42 Active 595777438 Problem Acute bilateral low back pain with left-sided sciatica M54.42 Active 29285485 Problem Anxiety F41.9 Active 89744736 Problem Lumbago with sciatica, right side M54.41 Active 210421453 Problem 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.0 Active 319193930 Problem Major depressive disorder, recurrent, mild F33.0 Active 756926107 Problem History of diabetes mellitus, type II Z86.39 Active 874199370 Problem Hyperlipidemia, unspecified hyperlipidemia type E7 8.5 Active 07007299 Problem Seasonal allergic rhinitis due to pollen J30.1 Active 15539347 Problem Essential hypertension I10 Active 00317700 Problem COPD exacerbation J44.1 Active 29 0832549000535 Problem Chronic obstructive pulmonary disease, unspecified COPD ty pe J44.9 Active 79767712 Problem Other chronic pain G89.29 Active 8 0771453 Problem Hypoglycemia E16.2 Active 5936237 03 Problem 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 [address] [id number] [place] [address] Apr, [place] [address] [address] Apr, Low back pain, unspecified back pain lat erality, with sciatica presence unspecified M54.5 ; Onychomycosis B35.1 ; Other chronic pain G89.29 ; Chronic obstructive pulmonary disease, unspecified COPD type J44.9 ; Essential hypertension I10 ; Family history of diabetes mellitus Z83.3 ; Hyperlipidemia, unspecified hyperlipidemia type E78.5 ; Anxiety F41.9 and 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 [address] Mar, Primary osteoarthritis of right knee M17 .[address] [address] Mar, [address] [address] Feb, Onychomycosis B35.1 ; Nail hypertrophy L 60.2 and Self-care deficit for grooming and hygiene Z74.[address] [address] Jan, Posterior right knee pain M25.561 ; Pain in left leg M79.605 ; Pain in right leg M79.604 ; Coronary artery disease of [place] artery of [place] heart with stable angina pectoris I25.118 and Encounter for immunization Z23 [address] [address] Dec, Nail hypertrophy L60.2 ; Onychomycosis B 35.1 and Self-care deficit for grooming and hygiene Z74.[address] [address] Oct, [address] [address] Sep, Other chest pain R07.[address] [address] Sep, [facility] [place] [id number] [place] [address] Sep, Cellulitis of groin L03.314 [place] [address] [address] Sep, Nail hypertrophy L60.2 and Self-care def icit for grooming and hygiene Z74.1 [place] [address] [address] Aug, [address] [address] Aug, Hypoglycemia E16.2 ; Nonintractable epis odic headache, unspecified headache type R51 and Candidiasis of breast B37.[address] [address] Aug, Nail hypertrophy L60.2 and Self-care def icit for grooming and hygiene Z74.[address] [address] June, [facility] [address] [address] May, Bee sting, accidental or uni ntentional, initial encounter T63.441A [address] [address] Apr, Primary osteoarthritis involving multipl e joints M15.0 ; Angina pectoris, unspecified I20.9 ; History of diabetes mellitus, type II Z86.39 and Chronic obstructive pulmonary disease, unspecified COPD type J44.[address] [address] Apr, Nail hypertrophy L60.2 and Self-care def icit for grooming and hygiene Z74.[address] [address] Mar, [facility] [address] [place] [id number] [address] [place] [address] Mar, Low back pain M54.5 [place] [address] [address] Mar, [place] [address] [address] Feb, [place] [address] [address] Feb, [place] [address] [address] Feb, Encounter for Medicare annual wellness e xam Z00.00 ; Major depressive disorder, recurrent, mild F33.0 ; Chronic obstructive pulmonary disease, unspecified COPD type J44.9 ; Atherosclerotic heart disease of [place] coronary artery without angina pectoris I25.10 ; Primary osteoarthritis involving multiple joints M15.0 ; Angina pectoris, unspecified I20.9 and 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 [place] [address] [address] Jan, [place] [address] [address] Jan, [place] [address] [address] Dec, Chronic obstructive pulmonary disease, u nspecified COPD type J44.9 ; Low back pain M54.5 ; Other chronic pain G89.29 and Moderate episode of recurrent major depressive disorder F33.1 [place] [address] [address] Nov, [place] [address] [address] Nov, Encounter for immunization Z23 [place] [address] [address] Nov, Allergic rhinitis due to pollen, unspeci fied seasonality J30.1 ; Primary osteoarthritis involving multiple joints M15.0 and Encounter for immunization Z23 [place] [address] [address] Oct, Nail hypertrophy L60.2 and Self-care def icit for hygiene R46.0 [facility] [address] [facility] [id number] [address] [place] [address] Oct, Chest congestion R09.89 ; So re throat J02.[address] [facility] [address] [address] Sep, [place] [address] [address] Aug, Low back pain M54.5 ; Other chronic pain G89.29 ; Pain in right knee M25.561 ; Pain in left knee M25.562 and Rash R21 [place] [address] [address] Aug, Nail hypertrophy L60.2 and Self-care def icit for hygiene R46.0 [place] [address] [address] June, Hypertrophy of nail L60.2 and Self-care deficit for hygiene R46.0 [place] [address] [address] June, [place] [address] [address] June, COPD exacerbation J44.1 [place] [address] [address] May, [place] [address] [address] Apr, Seasonal allergic rhinitis due to pollen J30.1 ; Encounter for immunization Z23 ; COPD exacerbation J44.1 ; Encounter for screening mammogram for breast cancer Z12.31 and Colon cancer screening Z12.11 [place] [address] [address] Apr, [place] [address] [address] Feb, Lumbago with sciatica, right side M54.41 ; Lumbago with sciatica, left side M54.42 ; Other chronic pain G89.29 ; Left hip pain M25.552 and Anxiety F41.9 [facility] [place] [address] [address] [place] [id number] [place] [address] Jan, History of asthma Z87.09 ; C OPD exacerbation J44.1 and Acute non-recurrent maxillary sinusitis J01.00 [place] [address] [address] Jan, Other chronic pain G89.29 and Acute bila teral low back pain with left- sided sciatica M54.42 [place] [address] [address] Jan, Other chronic pain G89.29 and Acute bila teral low back pain with left- sided sciatica M54.[address] [address] Dec, Trochanteric bursitis of left hip M70.62 ; Left hip pain M25.552 and Other chronic pain G89.29 [facility] [address] [address] Nov, Local reaction to insect sti ng, accidental or unintentional, initial encounter T63.481A and Acute dermatitis L30.[address] [address] Nov, Breast cancer screening Z12.[address] [address] Nov, Acute bilateral low back pain with left- sided sciatica M54.42 and Low back pain, unspecified back pain laterality, with sciatica presence unspecified M54.5 [facility] [place] [address] [address] Oct, Acute bilateral low back rangel n with left-sided sciatica M54.42 [place] [address] [address] Sep, Low back pain, unspecified back pain lat erality, with sciatica presence unspecified M54.5 [facility] [address] [address] Sep, [facility] [address] [address] Aug, Nail hypertrophy L60.2 ; Onychomycosis B 35.1 and Self-care deficit for hygiene R46.0 [facility] [address] [address] Aug, [facility] [address] [address] Aug, [facility] [address] [facility] [id number] [address] [place] [address] Jul, Rash [address]21 [facility] [address] [address] Jul, [facility] [address] [address] Jul, Low back pain, unspecified back pain lat erality, with sciatica presence unspecified M54.5 [place] [address] [address] June, Nail hypertrophy L60.2 ; Self-care defic it for hygiene R46.0 and Other chronic pain G89.29 [facility] [address] [address] June, Low back pain, unspecified back pain lat erality, with sciatica presence unspecified M54.5 [place] [address] [address] May, [facility] [address] [address] May, [facility] [address] [address] May, [place] [address] [address] May, Low back pain, unspecified back pain lat erality, with sciatica presence unspecified M54.5 [place] [address] [address] Apr, Breast pain, left N64.4 ; Left arm pain M79.602 and Family history of diabetes mellitus Z83.3 [place] [address] [address] Apr, Low back pain, unspecified back pain lat erality, with sciatica presence unspecified M54.5 [place] [address] [address] Apr, [place] [address] [address] 28 Mar, 2016 Onychomycosis B35.1 and Self-care defici t for hygiene R46.0 [place] [address] [address] 17 Mar, 2016 Low back pain, unspecified back pain lat erality, with sciatica presence unspecified M54.5 [facility] [address] [facility] [id number] [address] [place] [address] 14 Mar, 2016 Pain in left shoulder M25.51 2 and Other chronic pain G89.29 [place] [address] [address] 13 Mar, 2016 Arthralgia, unspecified joint M25.50 [place] [address] [address] 06 Mar, 2016 [place] [address] [address] Feb, Low back pain, unspecified back pain lat erality, with sciatica presence unspecified M54.5 [place] [address] [address] Feb, [facility] [address] [id number] Feb, Dental examination Z01.20 [facility] [address] [id number] Feb, Dental examination Z01.20 [place] [address] [address] Feb, Cramp of both lower extremities R25.2 [place] [address] [address] Feb, [place] [address] [place] [address] Jan, Hypoxemia R09.02 ; Episodic cluster head ache, not intractable G44.019 and Cramp of both lower extremities R25.2 [place] [address] [address] Jan, [place] [address] [address] Jan, Low back pain, unspecified back pain lat erality, with sciatica presence unspecified M54.5 [place] [address] [address] Jan, Hypertrophy of nail L60.2 ; Onychomycosi s B35.1 and Self-care deficit for hygiene R46.0 [place] [address] [address] Jan, Low back pain, unspecified back pain lat erality, with sciatica presence unspecified M54.5 [place] [address] [address] Dec, Low back pain, unspecified back pain lat erality, with sciatica presence unspecified M54.5 [facility] [address] [facility] [id number] [address] [place] [address] Dec, Bug bite with infection, ini tial encounter W57.XXXA [place] [address] [address] Nov, Low back pain, unspecified back pain lat erality, with sciatica presence unspecified M54.5 [place] [address] [address] Nov, [place] [address] [address] Nov, Chronic obstructive pulmonary disease, u nspecified COPD type J44.9 [place] [address] [address] Nov, [place] [address] [address] Oct, [place] [address] [address] Oct, Onychomycosis B35.1 and Ingrown nail L60 .0 [place] [address] [address] Oct, Low back pain, unspecified back pain lat erality, with sciatica presence unspecified M54.5 [place] [address] [address] Sep, [place] [address] [address] Sep, Low back pain, unspecified back pain lat erality, with sciatica presence unspecified M54.5 [place] [address] [address] Aug, [place] [address] [address] Aug, Cramp of both lower extremities R25.2 ; Breast cancer screening Z12.39 ; Hyperlipidemia, unspecified hyperlipidemia type E78.5 and Atypical mole L81.9 [place] [address] [address] Aug, Chronic obstructive pulmonary disease, u nspecified COPD type J44.9 [place] [address] [address] 11 Aug, 2015 Low back pain, unspecified back pain lat erality, with sciatica presence unspecified M54.5 [place] [address] [address] 11 Aug, 2015 Atherosclerotic heart disease of [place] coronary artery without angina pectoris I25.10 [place] [address] [address] Jul, [place] [address] [address] Jul, [place] [address] [address] Jul, Allergic rhinitis, unspecified allergic rhinitis type J30.9 [place] [address] [address] Jul, Low back pain, unspecified back pain lat erality, with sciatica presence unspecified M54.5 [place] [address] [address] 07 Jul, 2015 Post-concussion headache G44.309 and Art hralgia, unspecified joint M25.50 [place] [address] [address] June, Chronic obstructive pulmonary disease, u nspecified COPD type J44.9 [place] [address] [address] June, [place] [address] [address] May, [place] [address] [address] May, [place] [address] [address] Apr, Hip pain 719.45 and Atherosclerotic hear t disease of [place] coronary artery without angina pectoris I25.10 [place] [address] [address] 22 Apr, 2015 History of self-care deficit Z86.59 ; Hy pertrophy of nail L60.2 and Onychomycosis B35.1 [place] [address] [address] 16 Apr, 2015 [place] [address] [address] 15 Apr, 2015 Gastroenteritis K52.9 [place] [address] [address] Mar, [place] [address] [address] Mar, [place] [address] [address] Mar, [place] [address] [address] Mar, Acute pain due to injury G89.11 and Othe r chronic pain G89.29 [place] [address] [address] 12 Mar, 2015 [place] [address] [address] 08 Mar, 2015 [place] [address] [address] 08 Mar, 2015 [facility] [address] [address] 08 Mar, 2015 [place] [address] [address] Feb, Low back pain, unspecified back pain lat erality, with sciatica presence unspecified M54.5 [place] [address] [address] Feb, [place] [address] [address] Jan, [facility] [address] [address] Jan, Low back pain, unspecified back pain lat erality, with sciatica presence unspecified M54.5 [facility] [address] [address] Jan, Other chronic pain G89.29 and Acute pain due to injury G89.11 [facility] [address] [address] Dec, [facility] [address] [address] Nov, Essential hypertension I10 and Viral inf ection, unspecified B34.9 [facility] [address] [address] Nov, [facility] [address] [address] Nov, [facility] [address] [address] 30 Oct, 2014 [facility] [address] [address] 14 Oct, 2014 [facility] [address] [address] 08 Oct, 2014 [facility] [address] [address] 08 Oct, 2014 [facility] [address] [address] Sep, [facility] [address] [address] Sep, Hypertrophy of nail 703.8 and Self-care deficit for hygiene V40.39 [facility] [address] [address] Sep, [facility] [address] [address] Sep, [facility] [address] [place] [id number] [place] [address] Aug, [facility] [address] [place] [id number] [place] [address] Jul, Onychomycosis 110.1 and Ingrown nail 7[address] [facility] [address] [place] [id number] [place] [address] Jul, Other screening mammogram V76.12 [facility] [address] [place] [id number] [place] [address] Jul, [facility] [address] [address] Jul, Hip pain 719.45 ; Visual disturbance 368 .[address] [facility] [address] [place] [id number] [place] [address] June, [facility] [address] [place] [id number] [place] [address] June, [facility] [address] [place] [id number] [place] [address] June, [facility] [address] [place] [id number] [place] [address] June, [facility] [address] [place] [id number] [place] [address] May, [facility] [address] [place] [id number] [place] [address] May, [facility] [address] [place] [id number] [place] [address] Apr, [facility] [address] [place] [id number] [place] [address] Apr, [facility] [address] [place] [id number] [place] [address] Apr, [facility] [address] [place] [id number] [place] [address] Apr, [facility] [address] [id number] [place] [address] Mar, 2014 [facility] [address] [id number] [place] [address] Mar, [facility] [address] [id number] [place] [address] Feb, [facility] [address] [id number] [place] [address] Feb, [facility] [address] [id number] [place] [address] Feb, [facility] [address] [id number] [place] [address] Jan, [facility] [address] [id number] [place] [address] Jan, [facility] [address] [place] [id number] [place] [address] Jan, [facility] [address] [id number] [place] [address] Jan, [facility] [address] [place] [id number] [place] [address] Jan, [facility] [address] [id number] [place] [address] Jan, [facility] [address] [place] [id number] [place] [address] Dec, [facility] [address] [id number] [place] [address] Nov, [facility] [address] [id number] [place] [address] Nov, [facility] [address] [id number] [place] [address] Nov, [facility] [address] [id number] [place] [address] Nov, [facility] [address] [id number] [place] [address] Nov, [facility] [address] [facility] [id number] [place] [address] Nov, [facility] [address] [facility] [id number] [place] [address] Nov, [facility] [address] [id number] [place] [address] Nov, [facility] [address] [id number] [place] [address] Nov, [facility] [address] [facility] [id number] [place] [address] Nov, [facility] [address] [id number] [place] [address] Oct, [facility] [address] [id number] [place] [address] Oct, [facility] [address] [id number] [place] [address] 24 Oct, 2013 [facility] [address] [id number] [place] [address] 24 Oct, 2013 [facility] [address] [id number] [place] [address] 15 Oct, 2013 [facility] [address] [id number] [place] [address] 15 Oct, 2013 [facility] [address] [id number] [place] [address] Oct, 2013 [facility] [address] [id number] [place] [address] Oct, 2013 [facility] [address] [id number] [place] [address] Sep, [facility] [address] [id number] [place] [address] Sep, [facility] [address] [id number] [place] [address] Sep, [facility] [address] [id number] [facility] [place] [address] Sep, 2013 [facility] [address] [id number] [facility] [place] [address] Aug, [facility] [address] [facility] [id number] [place] [address] Aug, 2013 [facility] [address] [facility] [id number] [place] [address] Aug, [facility] [address] [facility] [id number] [place] [address] Aug, 2013 [facility] [address] [facility] [id number] [place] [address] Aug, [facility] [address] [id number] [place] [address] Aug, [facility] [address] [id number] [place] [address] Aug, [facility] [address] [id number] [place] [address] Aug, [facility] [address] [facility] [id number] [place] [address] Jul, [facility] [address] [id number] [place] [address] Jul, [facility] [address] [id number] [place] [address] Jul, [facility] [address] [facility] [id number] [place] [address] Jul, [facility] [address] [facility] [id number] [place] [address] Jul, [facility] [address] [id number] [place] [address] Jul, [facility] [address] [id number] [place] [address] Jul, [facility] [address] [id number] [place] [address] Jul, [facility] [address] [id number] [place] [address] Jul, [facility] [address] [id number] [place] [address] Jul, [facility] [address] [id number] [place] [address] Jul, [facility] [address] [id number] [place] [address] Jul, [facility] [address] [id number] [place] [address] Jul, [facility] [address] [id number] [place] [address] Jul, [facility] [address] [id number] [place] [address] Jul, [facility] [address] [id number] [place] [address] Jul, [facility] [address] [id number] [place] [address] Jul, [facility] [place] [facility] [id number] [place] [address] June, [facility] [place] [facility] [address] [id number] [place] [address] June, [facility] [place] [facility] [address] [facility] [id number] [place] [address] May, [facility] [place] [facility] [address] [facility] [id number] [place] [address] May, [facility] [place] [facility] [address] [facility] [id number] [place] [address] May, [facility] [place] [facility] [address] [facility] [address] [id number] [place] [address] May, [facility] [place] [facility] [address] [facility] [id number] [place] [address] Apr, [facility] [place] [facility] [address] [facility] [address] [id number] [place] [address] 17 Apr, 2013 [facility] [place] [facility] [address] [facility] [id number] [place] [address] 13 Apr, 2013 [facility] [place] [facility] [address] [facility] [id number] [facility] [place] [address] 13 Apr, 2013 [facility] [place] [facility] [address] [facility] [address] [id number] [place] [address] 11 Apr, 2013 [facility] [place] [facility] [address] [facility] [id number] [place] [address] 11 Apr, 2013 [facility] [place] [facility] [address] [facility] [id number] [facility] [place] [address] 10 Apr, 2013 [facility] [place] [facility] [address] [facility] [id number] [place] [address] 13 Mar, 2013 [facility] [place] [facility] [address] [id number] [place] [address] Mar, [facility] [place] [facility] [address] [facility] [id number] [place] [address] Mar, [facility] [place] [facility] [address] [facility] [id number] [place] [address] Mar, [facility] [place] [facility] [address] [id number] [place] [address] Feb, [facility] [place] [facility] [address] [facility] [id number] [place] [address] Feb, [facility] [place] [facility] [address] [facility] [address] [id number] [place] [address] Feb, [facility] [place] [facility] [address] [facility] [id number] [place] [address] Feb, [facility] [place] [facility] [address] [facility] [id number] [place] [address] Jan, [facility] [place] [facility] [address] [facility] [id number] [place] [address] Jan, [facility] [place] [facility] [address] [facility] [address] [id number] [place] [address] Jan, [facility] [place] [facility] [address] [facility] [id number] [place] [address] Jan, [facility] [place] [facility] [address] [facility] [id number] [place] [address] Dec, [facility] [place] [facility] [address] [facility] [address] [id number] [place] [address] Dec, [facility] [place] [facility] [address] [facility] [address] [id number] [place] [address] Dec, [facility] [place] [facility] [address] [facility] [id number] [place] [address] Dec, [facility] [place] [facility] [address] [facility] [id number] [place] [address] Dec, [facility] [place] [facility] [address] [facility] [id number] [place] [address] Nov, [facility] [place] [facility] [address] [facility] [address] [id number] [place] [address] Nov, [facility] [place] [facility] [address] [facility] [id number] [place] [address] Nov, [facility] [place] [facility] [address] [facility] [id number] [place] [address] Nov, [facility] [place] [facility] [address] [facility] [id number] [place] [address] Nov, [facility] [place] [facility] [address] [id number] [place] [address] Nov, [facility] [place] [facility] [address] [facility] [address] [id number] [place] [address] Nov, [facility] [place] [facility] [address] [facility] [id number] [place] [address] Nov, [facility] [place] [facility] [address] [facility] [id number] [place] [address] Oct, [facility] [place] [facility] [address] [facility] [id number] [place] [address] Oct, [facility] [place] [facility] [address] [facility] [address] [id number] [place] [address] Sep, [facility] [place] [facility] [address] [id number] [facility] [place] [address] Sep, [facility] [place] [facility] [address] [facility] [id number] [place] [address] Sep, [facility] [place] [facility] [address] [facility] [id number] [facility] [place] [address] Sep, [facility] [place] [facility] [address] [id number] [place] [address] Sep, [facility] [place] [facility] [address] [facility] [id number] [place] [address] Sep, [facility] [place] [facility] [address] [id number] [place] [address] Sep, [facility] [place] [facility] [address] [facility] [id number] [facility] [place] [address] Aug, [facility] [place] [facility] [address] [id number] [facility] [place] [address] Aug, [facility] [place] [facility] [address] [facility] [id number] [place] [address] Aug, [facility] [place] [facility] [address] [facility] [id number] [facility] [place] [address] Aug, [facility] [place] [facility] [address] [id number] [facility] [place] [address] Aug, [facility] [place] [facility] [address] [facility] [address] [id number] [place] [address] Aug, [facility] [place] [facility] [address] [facility] [id number] [facility] [place] [address] Aug, [facility] [place] [facility] [address] [id number] [facility] [place] [address] Aug, [facility] [place] [facility] [address] [facility] [id number] [facility] [place] [address] Jul, [facility] [place] [facility] [id number] [facility] [place] [address] Jul, [facility] [place] [facility] [id number] [place] [address] Jul, [facility] [id number] [place] [address] Jul, [facility] [place] [facility] [id number] [place] [address] June, [facility] [place] [facility] [address] [id number] [place] [address] June, [facility] [place] [facility] [address] [id number] [place] [address] June, [facility] [place] [facility] [address] [facility] [address] [id number] [place] [address] June, [facility] [place] [facility] [address] [facility] [id number] [place] [address] June, [facility] [place] [facility] [address] [facility] [id number] [place] [address] May, [facility] [place] [facility] [address] [facility] [id number] [place] [address] May, [facility] [place] [facility] [address] [facility] [id number] [place] [address] May, [facility] [place] [facility] [address] [facility] [id number] [place] [address] May, [facility] [place] [facility] [address] [facility] [id number] [place] [address] Apr, [facility] [place] [facility] [address] [facility] [id number] [place] [address] Apr, [facility] [place] [facility] [address] [facility] [id number] [place] [address] Apr, [facility] [place] [facility] [address] [facility] [id number] [place] [address] Apr, [facility] [place] [facility] [address] [facility] [address] [id number] [place] [address] Mar, [facility] [place] [facility] [address] [facility] [id number] [place] [address] Mar, [facility] [place] [facility] [address] [facility] [id number] [place] [address] 13 Mar, 2012 [facility] [place] [facility] [address] [facility] [address] [id number] [place] [address] 07 Mar, 2012 [facility] [place] [facility] [address] [facility] [id number] [place] [address] 07 Feb, 2012 [facility] [place] [facility] [address] [facility] [id number] [place] [address] Jan, [facility] [place] [facility] [address] [facility] [address] [id number] [place] [address] Jan, [facility] [place] [facility] [address] [id number] [place] [address] Jan, [facility] [place] [facility] [id number] [place] [address] 29 Dec, 2011 [facility] [place] [facility] [id number] [place] [address] 29 Dec, 2011 [facility] [place] [facility] [address] [facility] [id number] [place] [address] Dec, [facility] [place] [facility] [id number] [place] [address] 28 Dec, 2011 [facility] [place] [facility] [id number] [place] [address] 15 Dec, 2011 [facility] [place] [facility] [id number] [place] [address] 15 Dec, 2011 [facility] [place] [facility] [address] [id number] [place] [address] 14 Dec, 2011 [facility] [place] [facility] [address] [facility] [address] [id number] [place] [address] 07 Dec, 2011 [facility] [place] [facility] [address] [facility] [id number] [place] [address] 07 Dec, 2011 [facility] [place] [facility] [address] [facility] [id number] [place] [address] 17 Nov, 2011 [facility] [place] [facility] [address] [facility] [address] [id number] [place] [address] Nov, [facility] [place] [facility] [address] [facility] [id number] [place] [address] Nov, [facility] [place] [facility] [address] [id number] [place] [address] Nov, [facility] [place] [facility] [address] [facility] [id number] [place] [address] Nov, [facility] [place] [facility] [address] [facility] [id number] [place] [address] Nov, [facility] [place] [facility] [address] [facility] [id number] [place] [address] Oct, [facility] [place] [facility] [address] [facility] [id number] [place] [address] Sep, [facility] [place] [facility] [address] [facility] [id number] [place] [address] Sep, [facility] [place] [facility] [address] [facility] [id number] [place] [address] Aug, [facility] [place] [facility] [address] [id number] [place] [address] Aug, [facility] [place] [facility] [address] [id number] [place] [address] Aug, [facility] [place] [facility] [address] [id number] [place] [address] Aug, [facility] [place] [facility] [address] [id number] [place] [address] Aug, [facility] [place] [facility] [address] [id number] [place] [address] Jul, [facility] [place] [facility] [address] [id number] [place] [address] Jul, [facility] [place] [facility] [address] [id number] [place] [address] June, [facility] [place] [facility] [address] [id number] [place] [address] June, [facility] [place] [facility] [address] [id number] [place] [address] June, [facility] [place] [facility] [address] [id number] [place] [address] June, [facility] [place] [facility] [address] [id number] [place] [address] May, [facility] [place] [facility] [address] [id number] [place] [address] Apr, [facility] [place] [facility] [address] [id number] [place] [address] Apr, [facility] [place] [facility] [address] [id number] [place] [address] Apr, [facility] [place] [facility] [address] [id number] [place] [address] Apr, [facility] [place] [facility] [address] [id number] [place] [address] Apr, [facility] [place] [facility] [address] [id number] [place] [address] Mar, [facility] [place] [facility] [address] [id number] [place] [address] Mar, [facility] [place] [facility] [address] [id number] [place] [address] Mar, [facility] [place] [facility] [address] [id number] [place] [address] Feb, [facility] [place] [facility] [address] [id number] [place] [address] Feb, [facility] [place] [facility] [address] [id number] [place] [address] Feb, [facility] [place] [facility] [address] [id number] [place] [address] Feb, [facility] [place] [facility] [address] [id number] [place] [address] Feb, [facility] [place] [facility] [address] [id number] [place] [address] Feb, [facility] [address] [facility] [id number] [place] [address] 30 Jan, 2011 [facility] [address] [id number] [place] [address] Jan, [facility] [address] [id number] [place] [address] Jan, [facility] [address] [id number] [place] [address] Jan, [facility] [place] [facility] [address] [id number] [place] [address] Jan, [facility] [address] [id number] [place] [address] 16 Jul, 2010 [facility] [place] [facility] [address] [id number] [place] [address] June, [facility] [id number] [place] [address] Feb, [facility] [address] [id number] [place] [address] Jan, [facility] [address] [id number] [place] [address] Sep, [facility] [place] [facility] [address] [id number] [place] [address] Aug, [facility] [address] [id number] [place] [address] 14 May, 2009 [facility] [place] [facility] [address] [id number] [place] [address] 16 Apr, 2009 [facility] [place] [facility] [address] [id number] [place] [address] Jan, [facility] [place] [facility] [address] [id number] [place] [address] Jan, [facility] [place] [facility] [address] [id number] [place] [address] Jan, [facility] [place] [facility] [address] [id number] [place] [address] Dec, [facility] [address] [id number] [place] [address] Dec, [facility] [address] [id number] [place] [address] Nov, [facility] [address] [id number] [place] [address] Nov, [facility] [address] [id number] [place] [address] Nov, IMMUNIZATIONS No Known Immunizations SOCIAL HISTORY Never Assessed REASON FOR VISIT PLAN OF CARE VITAL SIGNS Height 62 in 2013-05-04 Weight 179.12 lbs 2013-05-04 Temperature 97.7 degrees Fahrenheit 2013-05-04 Heart Rate 80 bpm 2013-05-04 Respiratory Rate 18 2013-05-04 Blood pressure systolic 126 mmHg 2013-05-04 Blood pressure diastolic 72 mmHg 2013-05-04 MEDICATIONS Unknown Medications RESULTS No Results PROCEDURES Procedure Date Ordered Result Body Site MAMMOGRAM, SCREENING May 04, 2013 INSTRUCTIONS MEDICATIONS ADMINISTERED No Known Medications MEDICAL [...] Surgical History rectocele/cystocele repair, pessary fitt ed ([facility]) 05/2013 Surgical History Suspicious lesion removal 2015 Surgical History heart cath 03/03/2019 Hospitalization History [facility] acute gastoentereritis, dehydrati on 06/06 Hospitalization History Heart Cath 2013 Hospitalization History ER visit- 09/2018
--- OUTSIDE RECORDS SUMMARY | 2019-07-19 09:12 | XMS REPORT ---
Author Author Juanita PATIÑO Organization 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 Active 1241655174682 Problem Other chronic pain G89.29 Active 8 9894539 Problem Episodic cluster headache, not intractable G44.019 Active 235346049 Problem Lumbago with sciatica, left side M54.42 Active 056149237 Problem Acute bilateral low back pain with left-sided sciatica M54.42 Active 59953332 Problem COPD exacerbation J44.1 Active 29 [id number] Problem Seasonal allergic rhinitis due to pollen J30.1 Active 15561961 Problem 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.0 Active 941431872 Problem 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 Active 250856750175 7 Problem Anxiety F41.9 Active 31623410 Problem Primary osteoarthritis of right knee M17.11 Active 162630713889719 Problem Lumbago with sciatica, right side M54.41 Active 979674340 Problem Major depressive disorder, recurrent, mild F33.0 Active 520912019 Problem History of diabetes mellitus, type II Z86.39 Active 934193644 Problem Other chronic pain G89.29 Active 8 9858270 Problem Hypoglycemia E16.2 Active 6322755 03 ALLERGIES Substance Reaction Event Type Date Status Demerol Unknown Drug Allergy Apr, Active Benadryl rash Drug Allergy Apr, Active Aleve Unknown Drug Allergy Apr, Active Dilantin Unknown Drug Allergy Apr, Active ENCOUNTERS Encounter Location Date Diagnosis [place] [address] [address] Apr, [place] [address] [address] Mar, Primary osteoarthritis of right knee M17 .11 [place] [address] [address] Mar, [place] [address] [address] Feb, Onychomycosis B35.1 ; Nail hypertrophy L 60.2 and Self-care deficit for grooming and hygiene Z74.1 [place] [address] [address] Jan, Posterior right knee pain M25.561 ; Pain in left leg M79.605 ; Pain in right leg M79.604 ; Coronary artery disease of elim ira artery of elim ira heart with stable angina pectoris I25.118 and Encounter for immunization Z23 [place] [address] [address] Dec, Nail hypertrophy L60.2 ; Onychomycosis B 35.1 and Self-care deficit for grooming and hygiene Z74.1 [place] [address] [address] Oct, [place] [address] [address] Sep, Other chest pain R07.89 [place] [address] [address] Sep, [facility] [address] [facility] [id number] [address] [place] [address] Sep, Cellulitis of groin L03.314 [place] [address] [address] Sep, Nail hypertrophy L60.2 and Self-care def icit for grooming and hygiene Z74.1 [place] [address] [address] Aug, [place] [address] [address] Aug, Hypoglycemia E16.2 ; Nonintractable epis odic headache, unspecified headache type R51 and Candidiasis of breast B37.[address] [address] Aug, Nail hypertrophy L60.2 and Self-care def icit for grooming and hygiene Z74.1 [place] [address] [address] June, [facility] [address] [place] [id number] [address] [place] [address] May, Bee sting, accidental or uni ntentional, initial encounter T63.441A [address] [address] Apr, Primary osteoarthritis involving multipl e joints M15.0 ; Angina pectoris, unspecified I20.9 ; History of diabetes mellitus, type II Z86.39 and Chronic obstructive pulmonary disease, unspecified COPD type J44.[address] [address] Apr, Nail hypertrophy L60.2 and Self-care def icit for grooming and hygiene Z74.1 [place] [address] [address] Mar, [facility] [address] [place] [id number] [place] [address] Mar, Low back pain M54.[address] [address] Mar, [place] [address] [address] Feb, [place] [address] [address] Feb, [place] [address] [address] Feb, Encounter for Medicare annual wellness e xam Z00.00 ; Major depressive disorder, recurrent, mild F33.0 ; Chronic obstructive pulmonary disease, unspecified COPD type J44.9 ; 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 ; Primary osteoarthritis involving multiple joints M15.0 ; Angina pectoris, unspecified I20.9 and 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 [place] [address] [address] Jan, [place] [address] [address] Jan, [place] [address] [address] Dec, Chronic obstructive pulmonary disease, u nspecified COPD type J44.9 ; Low back pain M54.5 ; Other chronic pain G89.29 and Moderate episode of recurrent major depressive disorder F33.1 [place] [address] [address] Nov, [place] [address] [address] Nov, Encounter for immunization Z23 [place] [address] [address] Nov, Allergic rhinitis due to pollen, unspeci fied seasonality J30.1 ; Primary osteoarthritis involving multiple joints M15.0 and Encounter for immunization Z23 [place] [address] [place] [id number] [place] [address] Oct, Nail hypertrophy L60.2 and Self-care def icit for hygiene R46.0 [facility] [address] [facility] [id number] [address] [place] [address] Oct, Chest congestion R09.89 ; So re throat J02.9 and Cough R05 [place] [address] [place] [id number] [place] [address] Sep, [place] [address] [address] Aug, Low back pain M54.5 ; Other chronic pain G89.29 ; Pain in right knee M25.561 ; Pain in left knee M25.562 and Rash R21 [place] [address] [address] Aug, Nail hypertrophy L60.2 and Self-care def icit for hygiene R46.0 [place] [address] [address] June, Hypertrophy of nail L60.2 and Self-care deficit for hygiene R46.0 [place] [address] [address] June, [place] [address] [address] June, COPD exacerbation J44.1 [place] [address] [address] May, [place] [address] [address] Apr, Seasonal allergic rhinitis due to pollen J30.1 ; Encounter for immunization Z23 ; COPD exacerbation J44.1 ; Encounter for screening mammogram for breast cancer Z12.31 and Colon cancer screening Z12.11 [place] [address] [address] Apr, [place] [address] [address] Feb, Lumbago with sciatica, right side M54.41 ; Lumbago with sciatica, left side M54.42 ; Other chronic pain G89.29 ; Left hip pain M25.552 and Anxiety F41.9 [facility] [address] [facility] [id number] [address] [place] [address] Jan, History of asthma Z87.09 ; C OPD exacerbation J44.1 and Acute non-recurrent maxillary sinusitis J01.00 [place] [address] [address] 20 Jan, 2017 Other chronic pain G89.29 and Acute bila teral low back pain with left- sided sciatica M54.42 [place] [address] [address] 14 Jan, 2017 Other chronic pain G89.29 and Acute bila teral low back pain with left- sided sciatica M54.42 [place] [address] [address] 08 Dec, 2016 Trochanteric bursitis of left hip M70.62 ; Left hip pain M25.552 and Other chronic pain G89.29 [facility] [place] [address] [address] Nov, Local reaction to insect sti ng, accidental or unintentional, initial encounter T63.481A and Acute dermatitis L30.9 [place] [address] [address] Nov, Breast cancer screening Z12.[address] [address] Nov, Acute bilateral low back pain with left- sided sciatica M54.42 and Low back pain, unspecified back pain laterality, with sciatica presence unspecified M54.5 [facility] [place] [address] [address] [place] [id number] [place] [address] Oct, Acute bilateral low back rangel n with left-sided sciatica M54.42 [place] [address] [address] Sep, Low back pain, unspecified back pain lat erality, with sciatica presence unspecified M54.5 [place] [address] [address] Sep, [place] [address] [address] Aug, Nail hypertrophy L60.2 ; Onychomycosis B 35.1 and Self-care deficit for hygiene R46.0 [facility] [address] [address] Aug, [facility] [address] [address] Aug, [facility] [address] [facility] [id number] [address] [place] [address] Jul, Rash R21 [facility] [address] [address] Jul, [place] [address] [address] Jul, Low back pain, unspecified back pain lat erality, with sciatica presence unspecified M54.5 [place] [address] [address] June, Nail hypertrophy L60.2 ; Self-care defic it for hygiene R46.0 and Other chronic pain G89.29 [place] [address] [address] June, Low back pain, unspecified back pain lat erality, with sciatica presence unspecified M54.5 [facility] [address] [address] May, [facility] [address] [address] May, [facility] [address] [address] May, [place] [address] [address] May, Low back pain, unspecified back pain lat erality, with sciatica presence unspecified M54.5 [place] [address] [address] Apr, Breast pain, left N64.4 ; Left arm pain M79.602 and Family history of diabetes mellitus Z83.3 [place] [address] [address] Apr, Low back pain, unspecified back pain lat erality, with sciatica presence unspecified M54.5 [place] [address] [address] Apr, [place] [address] [address] 28 Mar, 2016 Onychomycosis B35.1 and Self-care defici t for hygiene R46.0 [place] [address] [address] 17 Mar, 2016 Low back pain, unspecified back pain lat erality, with sciatica presence unspecified M54.5 [facility] [address] [facility] [id number] [address] [address] 14 Mar, 2016 Pain in left shoulder M25.51 2 and Other chronic pain G89.29 [place] [address] [address] 13 Mar, 2016 Arthralgia, unspecified joint M25.50 [place] [address] [address] 06 Mar, 2016 [place] [address] [address] Feb, Low back pain, unspecified back pain lat erality, with sciatica presence unspecified M54.5 [place] [address] [address] Feb, [facility] [address] [id number] Feb, Dental examination Z01.20 [facility] [address] [id number] Feb, Dental examination Z01.20 [place] [address] [address] Feb, Cramp of both lower extremities R25.2 [place] [address] [address] Feb, [place] [address] [place] [id number] Jan, Hypoxemia R09.02 ; Episodic cluster head ache, not intractable G44.019 and Cramp of both lower extremities R25.2 [place] [address] [address] Jan, [place] [address] [place] [address] Jan, Low back pain, unspecified back pain lat erality, with sciatica presence unspecified M54.5 [place] [address] [address] Jan, Hypertrophy of nail L60.2 ; Onychomycosi s B35.1 and Self-care deficit for hygiene R46.0 [place] [address] [address] Jan, Low back pain, unspecified back pain lat erality, with sciatica presence unspecified M54.5 [place] [address] [address] Dec, Low back pain, unspecified back pain lat erality, with sciatica presence unspecified M54.5 [facility] [address] [facility] [id number] [address] [address] Dec, Bug bite with infection, ini tial encounter W57.XXXA [place] [address] [address] Nov, Low back pain, unspecified back pain lat erality, with sciatica presence unspecified M54.5 [place] [address] [address] Nov, [place] [address] [address] Nov, Chronic obstructive pulmonary disease, u nspecified COPD type J44.9 [place] [address] [address] Nov, [place] [address] [address] Oct, [place] [address] [address] Oct, Onychomycosis B35.1 and Ingrown nail L60 .0 [place] [address] [address] Oct, Low back pain, unspecified back pain lat erality, with sciatica presence unspecified M54.5 [place] [address] [address] Sep, [place] [address] [address] Sep, Low back pain, unspecified back pain lat erality, with sciatica presence unspecified M54.5 [place] [address] [address] Aug, [place] [address] [address] Aug, Cramp of both lower extremities R25.2 ; Breast cancer screening Z12.39 ; Hyperlipidemia, unspecified hyperlipidemia type E78.5 and Atypical mole L81.9 [place] [address] [address] Aug, Chronic obstructive pulmonary disease, u nspecified COPD type J44.9 [place] [address] [address] Aug, Low back pain, unspecified back pain lat erality, with sciatica presence unspecified M54.5 [place] [address] [address] Aug, 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 [place] [address] [address] Jul, [place] [address] [address] Jul, [place] [address] [address] Jul, Allergic rhinitis, unspecified allergic rhinitis type J30.9 [place] [address] [address] 13 Jul, 2015 Low back pain, unspecified back pain lat erality, with sciatica presence unspecified M54.5 [place] [address] [address] 07 Jul, 2015 Post-concussion headache G44.309 and Art hralgia, unspecified joint M25.50 [place] [address] [address] June, Chronic obstructive pulmonary disease, u nspecified COPD type J44.9 [place] [address] [address] June, [place] [address] [address] 18 May, 2015 [place] [address] [address] May, [place] [address] [address] 30 Apr, 2015 Hip pain 719.45 and Atherosclerotic hear t disease of elim ira coronary artery without angina pectoris I25.10 [place] [address] [address] 22 Apr, 2015 History of self-care deficit Z86.59 ; Hy pertrophy of nail L60.2 and Onychomycosis B35.1 [place] [address] [address] Apr, [facility] [address] [address] Apr, Gastroenteritis K52.9 [facility] [address] [address] Mar, [facility] [address] [address] Mar, [facility] [address] [address] Mar, [facility] [address] [address] Mar, Acute pain due to injury G89.11 and Othe r chronic pain G89.29 [facility] [address] [address] Mar, [facility] [address] [address] 08 Mar, 2015 [facility] [address] [address] 08 Mar, 2015 [facility] [address] [address] 08 Mar, 2015 [facility] [address] [address] Feb, Low back pain, unspecified back pain lat erality, with sciatica presence unspecified M54.5 [facility] [address] [address] Feb, [facility] [address] [address] Jan, [facility] [address] [address] Jan, Low back pain, unspecified back pain lat erality, with sciatica presence unspecified M54.5 [facility] [address] [address] 16 Dec, 2015 Other chronic pain G89.29 and Acute pain due to injury G89.11 [facility] [address] [address] Dec, [facility] [address] [address] Nov, Essential hypertension I10 and Viral inf ection, unspecified B34.9 [facility] [address] [address] Nov, [facility] [address] [address] Nov, [facility] [address] [address] Oct, [place] [address] [address] Oct, [place] [address] [address] Oct, [facility] [address] [address] Oct, [facility] [address] [address] Sep, [place] [address] [address] Sep, Hypertrophy of nail 703.8 and Self-care deficit for hygiene V40.39 [facility] [address] [address] Sep, [facility] [address] [address] Sep, [facility] [address] [address] Aug, [facility] [address] [address] Jul, Onychomycosis 110.1 and Ingrown nail 703 .0 [place] [address] [address] Jul, Other screening mammogram V76.12 [facility] [address] [id number] [place] [address] Jul, [facility] [address] [id number] [place] [address] Jul, Hip pain 719.45 ; Visual disturbance 368 .[address] [facility] [address] [place] [id number] [place] [address] June, [facility] [address] [id number] [place] [address] June, [facility] [address] [place] [id number] [place] [address] June, [facility] [address] [place] [id number] [place] [address] June, [facility] [address] [place] [id number] [place] [address] May, [facility] [address] [id number] [place] [address] May, [facility] [address] [place] [id number] [place] [address] Apr, [facility] [address] [id number] [place] [address] Apr, [facility] [address] [place] [id number] [place] [address] Apr, [facility] [address] [id number] [place] [address] Apr, [facility] [address] [place] [id number] [place] [address] Mar, [facility] [address] [id number] [place] [address] Mar, [facility] [address] [id number] [place] [address] Feb, [facility] [address] [id number] [place] [address] Feb, [facility] [address] [id number] [place] [address] Feb, [facility] [address] [id number] [place] [address] Jan, [facility] [address] [id number] [place] [address] Jan, [facility] [address] [id number] [place] [address] Jan, [facility] [address] [id number] [place] [address] Jan, [facility] [address] [id number] [place] [address] Jan, [facility] [address] [id number] [place] [address] Jan, [facility] [address] [id number] [place] [address] Dec, [facility] [address] [id number] [place] [address] Nov, [facility] [address] [id number] [place] [address] Nov, [facility] [address] [id number] [place] [address] Nov, [facility] [address] [id number] [place] [address] Nov, [facility] [address] [id number] [place] [address] Nov, [facility] [address] [place] [id number] [place] [address] Nov, [facility] [address] [id number] [place] [address] Nov, [facility] [address] [id number] [place] [address] Nov, [facility] [address] [facility] [id number] [place] [address] Nov, [facility] [address] [id number] [place] [address] Nov, [facility] [address] [id number] [place] [address] Oct, [facility] [address] [id number] [place] [address] Oct, [facility] [address] [facility] [id number] [place] [address] Oct, [facility] [address] [id number] [place] [address] Oct, [facility] [address] [id number] [place] [address] Oct, [facility] [address] [id number] [place] [address] Oct, [facility] [address] [id number] [place] [address] Oct, [facility] [address] [id number] [place] [address] Oct, [facility] [address] [id number] [place] [address] Sep, [facility] [address] [id number] [place] [address] Sep, [facility] [address] [id number] [place] [address] Sep, [facility] [address] [id number] [place] [address] Sep, [facility] [address] [id number] [place] [address] Aug, [facility] [address] [id number] [place] [address] Aug, [facility] [address] [id number] [place] [address] Aug, 2013 [facility] [address] [facility] [id number] [facility] [place] [address] Aug, 2013 [facility] [address] [facility] [id number] [facility] [place] [address] Aug, 2013 [facility] [address] [id number] [facility] [place] [address] Aug, 2013 [facility] [address] [facility] [id number] [facility] [place] [address] Aug, 2013 [facility] [address] [facility] [id number] [facility] [place] [address] Aug, 2013 [facility] [address] [id number] [place] [address] Jul, [facility] [address] [id number] [place] [address] Jul, [facility] [address] [id number] [place] [address] Jul, [facility] [address] [id number] [place] [address] Jul, [facility] [address] [id number] [place] [address] Jul, [facility] [address] [id number] [place] [address] Jul, [facility] [address] [id number] [place] [address] Jul, [facility] [address] [id number] [place] [address] Jul, [facility] [address] [id number] [place] [address] Jul, [facility] [address] [id number] [place] [address] Jul, [facility] [address] [id number] [place] [address] Jul, [facility] [address] [id number] [place] [place] [address] 09 Jul, 2013 [facility] [address] [facility] [id number] [place] [address] Jul, [facility] [address] [facility] [id number] [place] [address] Jul, [facility] [address] [id number] [place] [address] Jul, [facility] [address] [id number] [place] [address] Jul, [facility] [address] [facility] [id number] [place] [address] Jul, [facility] [address] [id number] [place] [address] June, [facility] [address] [id number] [place] [address] June, [facility] [address] [id number] [place] [address] May, [facility] [address] [id number] [place] [address] May, [facility] [address] [id number] [place] [address] May, [facility] [address] [id number] [place] [address] May, [facility] [address] [id number] [place] [address] Apr, [facility] [address] [facility] [id number] [place] [address] 17 Apr, 2013 [facility] [address] [id number] [place] [address] Apr, [facility] [address] [id number] [place] [address] Apr, [facility] [address] [id number] [place] [address] Apr, [facility] [address] [id number] [place] [address] Apr, [facility] [address] [id number] [place] [address] Apr, [facility] [address] [id number] [place] [address] 13 Mar, 2013 [facility] [address] [id number] [place] [address] Mar, [facility] [address] [id number] [place] [address] Mar, [facility] [address] [id number] [place] [address] Mar, [facility] [address] [id number] [place] [address] Feb, [facility] [address] [id number] [place] [address] Feb, [facility] [address] [id number] [place] [address] Feb, [facility] [address] [id number] [place] [address] Feb, [facility] [address] [id number] [place] [address] Jan, [facility] [address] [id number] [place] [address] Jan, [facility] [address] [id number] [place] [address] Jan, [facility] [address] [id number] [place] [address] Jan, [facility] [address] [id number] [place] [address] Dec, [facility] [address] [id number] [place] [address] Dec, [facility] [address] [id number] [facility] [place] [address] Dec, [facility] [address] [facility] [id number] [facility] [place] [address] Dec, [facility] [address] [facility] [id number] [place] [address] Dec, [facility] [address] [id number] [place] [address] Nov, [facility] [address] [id number] [place] [address] Nov, [facility] [address] [id number] [place] [address] Nov, [facility] [address] [id number] [place] [address] Nov, [facility] [address] [id number] [place] [address] Nov, [facility] [address] [id number] [place] [address] Nov, [facility] [address] [id number] [place] [address] Nov, [facility] [address] [id number] [place] [address] Nov, [facility] [address] [id number] [place] [address] Oct, [facility] [address] [id number] [place] [address] Oct, [facility] [address] [facility] [id number] [place] [address] Sep, [facility] [address] [id number] [place] [address] Sep, [facility] [address] [id number] [place] [address] Sep, [facility] [address] [id number] [place] [address] Sep, [facility] [address] [id number] [place] [address] Sep, [facility] [address] [facility] [id number] [place] [address] Sep, [facility] [address] [id number] [place] [address] Sep, [facility] [address] [id number] [place] [address] Aug, [facility] [address] [facility] [id number] [place] [address] Aug, [facility] [address] [facility] [id number] [place] [address] Aug, [facility] [address] [id number] [place] [address] Aug, [facility] [address] [id number] [place] [address] Aug, [facility] [address] [id number] [place] [address] Aug, [facility] [address] [id number] [place] [address] Aug, [facility] [address] [id number] [place] [address] Aug, [facility] [address] [id number] [place] [address] Jul, [facility] [address] [id number] [place] [address] Jul, [facility] [address] [facility] [id number] [place] [address] Jul, [facility] [address] [id number] [place] [address] Jul, [facility] [address] [id number] [place] [address] June, [facility] [address] [id number] [place] [address] June, [facility] [address] [id number] [place] [address] June, [facility] [address] [id number] [place] [address] June, [facility] [address] [id number] [place] [address] June, [facility] [address] [id number] [place] [address] May, [facility] [address] [facility] [id number] [place] [address] May, [facility] [address] [id number] [place] [address] May, [facility] [address] [id number] [place] [address] May, [facility] [address] [id number] [place] [address] Apr, [facility] [address] [id number] [place] [address] Apr, [facility] [address] [id number] [place] [address] Apr, [facility] [address] [id number] [place] [address] Apr, [facility] [address] [id number] [place] [address] Mar, [facility] [address] [id number] [place] [address] 15 Mar, 2012 [facility] [address] [id number] [place] [address] Mar, [facility] [address] [id number] [place] [address] 07 Mar, 2012 [facility] [address] [id number] [place] [address] Feb, [facility] [address] [id number] [place] [address] Jan, [facility] [address] [id number] [place] [address] Jan, [facility] [address] [id number] [place] [address] Jan, [facility] [address] [id number] [place] [address] Dec, [facility] [address] [id number] [place] [address] Dec, [facility] [address] [id number] [place] [address] Dec, [facility] [address] [id number] [place] [address] Dec, [facility] [address] [id number] [place] [address] 15 Dec, 2011 [facility] [address] [id number] [place] [address] 15 Dec, 2011 [facility] [address] [id number] [place] [address] 14 Dec, 2011 [facility] [address] [id number] [place] [address] Dec, [facility] [address] [id number] [place] [address] Dec, [facility] [address] [id number] [place] [address] Nov, [facility] [address] [id number] [place] [address] 17 Nov, 2011 [facility] [id number] [place] [address] Nov, [facility] [address] [id number] [place] [address] Nov, [facility] [address] [id number] [place] [address] Nov, [facility] [address] [id number] [place] [address] Nov, [facility] [address] [id number] [place] [address] Oct, [facility] [address] [id number] [place] [address] Sep, [facility] [address] [id number] [place] [address] Sep, [facility] [address] [id number] [place] [address] Aug, [facility] [address] [id number] [place] [address] Aug, [facility] [address] [id number] [place] [address] Aug, [facility] [address] [id number] [place] [address] Aug, [facility] [address] [id number] [place] [address] Aug, [facility] [address] [id number] [place] [address] Jul, [facility] [address] [id number] [place] [address] Jul, [facility] [address] [id number] [place] [address] June, [facility] [address] [id number] [place] [address] June, [facility] [address] [id number] [place] [address] June, [facility] [address] [id number] [place] [address] June, [facility] [address] [id number] [place] [address] May, [facility] [address] [id number] [place] [address] Apr, [facility] [address] [id number] [place] [address] Apr, [facility] [address] [id number] [place] [address] 15 Apr, 2011 [facility] [address] [id number] [place] [address] 08 Apr, 2011 [facility] [address] [id number] [place] [address] Apr, [facility] [address] [id number] [place] [address] Mar, [facility] [address] [id number] [place] [address] Mar, [facility] [address] [id number] [place] [address] Mar, [facility] [address] [id number] [place] [address] Feb, [facility] [address] [id number] [place] [address] Feb, [facility] [address] [id number] [place] [address] Feb, [facility] [address] [id number] [place] [address] Feb, [facility] [address] [id number] [place] [address] Feb, [facility] [address] [id number] [place] [address] Feb, [facility] [address] [id number] [place] [address] Jan, [facility] [address] [id number] [place] [address] Jan, [facility] [address] [id number] [place] [address] Jan, [facility] [address] [id number] [place] [address] 13 Jan, 2011 [facility] [address] [id number] [place] [address] 02 Jan, 2011 [facility] [address] [id number] [place] [address] 16 Jul, 2010 [facility] [address] [id number] [place] [address] June, [facility] [address] [id number] [place] [address] 13 Feb, 2010 [facility] [address] [id number] [place] [address] Jan, [facility] [address] [id number] [place] [address] Sep, [facility] [address] [id number] [place] [address] Aug, [facility] [address] [id number] [place] [address] 14 May, 2009 [facility] [address] [id number] [place] [address] Apr, [facility] [address] [id number] [place] [address] Jan, [facility] [address] [id number] [place] [address] Jan, [facility] [address] [id number] [place] [address] Jan, [facility] [address] [id number] [place] [address] Dec, [facility] [id number] [place] [address] Dec, [facility] [address] [id number] [place] [address] Nov, [facility] [address] [id number] [place] [address] Nov, [facility] [address] [facility] [id number] [place] [address] Nov, IMMUNIZATIONS No Known Immunizations SOCIAL HISTORY Never Assessed REASON FOR VISIT COPD Pt in for follow up NANCI Muller, Needs A1C. Has prev hx of DM. PLAN OF CARE Activity Details Follow Up 4 Months Reason:arthralgia VITAL SIGNS Height 62 in 2018-05-18 Weight 165.8 lbs 2018-05-18 Temperature 97.8 degrees Fahrenheit 2018-05-18 Heart Rate 64 bpm 2018-05-18 Respiratory Rate 18 2018-05-18 Oximetry 95 % 2018-05-18 BMI 30.32 kg/m2 2018-05-18 Blood pressure systolic 152 mmHg 2018-05-18 Blood pressure diastolic 84 mmHg 2018-05-18 MEDICATIONS Medication Instructions Dosage Frequency Start Date End Date Duration S tatus Calcium 600 MG Orally Twice a day 1 tablet with meals 12h Feb, Active Ibuprofen 600 MG Orally Three times a day 1 tablet with food or milk as needed 8h 25 Apr, 2018 30 days Active Ranexa 500 mg Orally Twice a day 1 tablet 12h Active Ventolin HFA 108 (90 Base) MCG/ACT USE 2 PUFFS EVERY 4 HOURS NEEDED FOR SHORTNESS OF BREATH OR WHEEZE 90 Active Loratadine 10 mg Orally Once a day as needed for allergies 1 tablet Apr, May, 90 days Active Escitalopram Oxalate 20 MG Orally Once a day 1 tablet 24h 22 Ja 2017 30 day(s) Active Isosorbide Mononitrate 30 mg take 1 tabl et (30 mg) by oral route once daily in the morning 90 Active Symbicort 160-4.5 MCG/ACT Inhalation Twice a day 2 puffs 12h Jan, Active Singulair 10 MG TAKE 1 TABLET BY MOUTH ONCE A DAY 90 Active Oxygen ... by inhalation route at bedtime 2L via nasal canula Active Atorvastatin Calcium 20 MG Orally Once a day 1 tablet 24h 16 Oc 2017 30 day(s) Active Aspirin EC Low Dose 81 MG TAKE ONE TABLET BY MOUTH ONCE DAILY 120 Active Amlodipine Besylate 5 MG Orally Once a day 1 tablet 24h 16 Nov, 2017 30 day(s) Active Pantoprazole Sodium 40 MG Orally Once a day 1 tablet 24h Active Lidoderm 5 % Externally Once a day 1 patch to skin remove after 12 hours 24h 13 Mar, 2018 30 days Active RESULTS No Results PROCEDURES Procedure Date Ordered Result Body Site [facility] VISIT ESTABLISHED PATIENT May 18, 2018 VENIPUNCT, ROUTINE* May 18, 2018 [facility] May [facility], 2018 GLYCATED HEMOGLOBIN TEST May 18, 2018 INSTRUCTIONS MEDICATIONS ADMINISTERED No Known Medications MEDICAL [...] Surgical History rectocele/cystocele repair, pessary fitt ed ([facility]) 05/2013 Surgical History Suspicious lesion removal 2015 Surgical History heart cath 03/03/2019 Hospitalization History [facility] acute gastoentereritis, dehydrati on 06/06 Hospitalization History Heart Cath 2013 Hospitalization History ER visit- 09/2018
--- OUTSIDE RECORDS SUMMARY | 2019-07-19 09:12 | XMS REPORT ---
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 Active 0428309933587 Problem Other chronic pain G89.29 Active 8 8946532 Problem Episodic cluster headache, not intractable G44.019 Active 162772604 Problem Lumbago with sciatica, left side M54.42 Active 065787399 Problem Acute bilateral low back pain with left-sided sciatica M54.42 Active 21018864 Problem COPD exacerbation J44.1 Active 29 [id number] Problem Seasonal allergic rhinitis due to pollen J30.1 Active 29043207 Problem 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.0 Active 554024538 Problem 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 Active [id number] 7 Problem Anxiety F41.9 Active 68938176 Problem Primary osteoarthritis of right knee M17.11 Active 481282442437498 Problem Lumbago with sciatica, right side M54.41 Active 369273733 Problem Major depressive disorder, recurrent, mild F33.0 Active 951754970 Problem History of diabetes mellitus, type II Z86.39 Active 241016638 Problem Other chronic pain G89.29 Active 8 3112712 Problem Hypoglycemia E16.2 Active 8262222 03 ALLERGIES No Information ENCOUNTERS Encounter Location Date Diagnosis [facility] [id number] [place] [address] 06 Mar, 2019 Primary osteoarthritis of right knee M17 .11 [place] [address] [address] Mar, [address] [address] Feb, Onychomycosis B35.1 ; Nail hypertrophy L 60.2 and Self-care deficit for grooming and hygiene Z74.[address] [address] Jan, Posterior right knee pain M25.561 ; Pain in left leg M79.605 ; Pain in right leg M79.604 ; Coronary artery disease of kiana artery of kiana heart with stable angina pectoris I25.118 and Encounter for immunization Z23 [address] [address] Dec, Nail hypertrophy L60.2 ; Onychomycosis B 35.1 and Self-care deficit for grooming and hygiene Z74.[address] [address] Oct, [address] [address] Sep, Other chest pain R07.[address] [address] Sep, [facility] [address] [facility] [id number] [address] [place] [address] Sep, Cellulitis of groin L03.[address] [address] Sep, Nail hypertrophy L60.2 and Self-care def icit for grooming and hygiene Z74.[address] [address] Aug, [address] [address] Aug, Hypoglycemia E16.2 ; Nonintractable epis odic headache, unspecified headache type R51 and Candidiasis of breast B37.89 [place] [address] [address] Aug, Nail hypertrophy L60.2 and Self-care def icit for grooming and hygiene Z74.1 [place] [address] [address] June, [facility] [address] [facility] [id number] [address] [place] [address] May, Bee sting, accidental or uni ntentional, initial encounter T63.441A [place] [address] [address] Apr, Primary osteoarthritis involving multipl e joints M15.0 ; Angina pectoris, unspecified I20.9 ; History of diabetes mellitus, type II Z86.39 and Chronic obstructive pulmonary disease, unspecified COPD type J44.9 [place] [address] [address] Apr, Nail hypertrophy L60.2 and Self-care def icit for grooming and hygiene Z74.1 [place] [address] [address] Mar, [facility] [place] [address] [facility] [id number] [address] [place] [address] 13 Mar, 2018 Low back pain M54.5 [place] [address] [address] Mar, [place] [address] [address] Feb, [place] [address] [address] Feb, [place] [address] [address] Feb, Encounter for Medicare annual wellness e xam Z00.00 ; Major depressive disorder, recurrent, mild F33.0 ; Chronic obstructive pulmonary disease, unspecified COPD type J44.9 ; 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 ; Primary osteoarthritis involving multiple joints M15.0 ; Angina pectoris, unspecified I20.9 and 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 [place] [address] [address] Jan, [place] [address] [address] Jan, [place] [address] [address] Dec, Chronic obstructive pulmonary disease, u nspecified COPD type J44.9 ; Low back pain M54.5 ; Other chronic pain G89.29 and Moderate episode of recurrent major depressive disorder F33.1 [place] [address] [address] Nov, [place] [address] [address] Nov, Encounter for immunization Z23 [place] [address] [address] Nov, Allergic rhinitis due to pollen, unspeci fied seasonality J30.1 ; Primary osteoarthritis involving multiple joints M15.0 and Encounter for immunization Z23 [place] [address] [address] Oct, Nail hypertrophy L60.2 and Self-care def icit for hygiene R46.0 [facility] [address] [facility] [id number] [address] [place] [address] Oct, Chest congestion R09.89 ; So re throat J02.9 and Cough R05 [place] [address] [address] Sep, [place] [address] [address] Aug, Low back pain M54.5 ; Other chronic pain G89.29 ; Pain in right knee M25.561 ; Pain in left knee M25.562 and Rash R21 [place] [address] [address] Aug, Nail hypertrophy L60.2 and Self-care def icit for hygiene R46.0 [place] [address] [address] June, Hypertrophy of nail L60.2 and Self-care deficit for hygiene R46.0 [place] [address] [address] June, [place] [address] [address] June, COPD exacerbation J44.1 [place] [address] [address] May, [place] [address] [address] Apr, Seasonal allergic rhinitis due to pollen J30.1 ; Encounter for immunization Z23 ; COPD exacerbation J44.1 ; Encounter for screening mammogram for breast cancer Z12.31 and Colon cancer screening Z12.11 [place] [address] [address] Apr, [place] [address] [address] Feb, Lumbago with sciatica, right side M54.41 ; Lumbago with sciatica, left side M54.42 ; Other chronic pain G89.29 ; Left hip pain M25.552 and Anxiety F41.9 [facility] [address] [facility] [id number] [address] [place] [address] Jan, History of asthma Z87.09 ; C OPD exacerbation J44.1 and Acute non-recurrent maxillary sinusitis J01.00 [place] [address] [address] Jan, Other chronic pain G89.29 and Acute bila teral low back pain with left- sided sciatica M54.42 [place] [address] [address] 14 Jan, 2017 Other chronic pain G89.29 and Acute bila teral low back pain with left- sided sciatica M54.[address] [address] Dec, Trochanteric bursitis of left hip M70.62 ; Left hip pain M25.552 and Other chronic pain G89.29 [facility] [address] [address] Nov, Local reaction to insect sti ng, accidental or unintentional, initial encounter T63.481A and Acute dermatitis L30.[address] [address] Nov, Breast cancer screening Z12.[address] [address] Nov, Acute bilateral low back pain with left- sided sciatica M54.42 and Low back pain, unspecified back pain laterality, with sciatica presence unspecified M54.5 [facility] [address] [address] Oct, Acute bilateral low back rangel n with left-sided sciatica M54.[address] [address] Sep, Low back pain, unspecified back pain lat erality, with sciatica presence unspecified M54.5 [place] [address] [address] Sep, [address] [address] Aug, Nail hypertrophy L60.2 ; Onychomycosis B 35.1 and Self-care deficit for hygiene R46.[address] [address] Aug, [address] [address] Aug, [facility] [address] [facility] [id number] [address] [place] [address] Jul, Rash R21 [facility] [address] [address] Jul, [facility] [address] [address] Jul, Low back pain, unspecified back pain lat erality, with sciatica presence unspecified M54.5 [place] [address] [address] June, Nail hypertrophy L60.2 ; Self-care defic it for hygiene R46.0 and Other chronic pain G89.29 [place] [address] [address] June, Low back pain, unspecified back pain lat erality, with sciatica presence unspecified M54.5 [place] [address] [address] May, [place] [address] [address] May, [facility] [address] [address] May, [place] [address] [address] May, Low back pain, unspecified back pain lat erality, with sciatica presence unspecified M54.5 [place] [address] [address] Apr, Breast pain, left N64.4 ; Left arm pain M79.602 and Family history of diabetes mellitus Z83.3 [place] [address] [address] 17 Apr, 2016 Low back pain, unspecified back pain lat erality, with sciatica presence unspecified M54.5 [place] [address] [address] Apr, [facility] [address] [address] 28 Mar, 2016 Onychomycosis B35.1 and Self-care defici t for hygiene R46.0 [facility] [address] [address] 17 Mar, 2016 Low back pain, unspecified back pain lat erality, with sciatica presence unspecified M54.5 [facility] [address] [facility] [id number] [address] [place] [address] 14 Mar, 2016 Pain in left shoulder M25.51 2 and Other chronic pain G89.29 [facility] [address] [address] 13 Mar, 2016 Arthralgia, unspecified joint M25.50 [place] [address] [address] Mar, [facility] [address] [address] Feb, Low back pain, unspecified back pain lat erality, with sciatica presence unspecified M54.5 [facility] [address] [address] Feb, [facility] [address] [id number] Feb, Dental examination Z01.20 [facility] [address] [id number] Feb, Dental examination Z01.20 [facility] [address] [address] Feb, Cramp of both lower extremities R25.2 [facility] [address] [address] Feb, [facility] [address] [address] Jan, Hypoxemia R09.02 ; Episodic cluster head ache, not intractable G44.019 and Cramp of both lower extremities R25.2 [place] [address] [address] Jan, [place] [address] [address] Jan, Low back pain, unspecified back pain lat erality, with sciatica presence unspecified M54.5 [place] [address] [address] Jan, Hypertrophy of nail L60.2 ; Onychomycosi s B35.1 and Self-care deficit for hygiene R46.0 [place] [address] [address] Jan, Low back pain, unspecified back pain lat erality, with sciatica presence unspecified M54.5 [place] [address] [address] Dec, Low back pain, unspecified back pain lat erality, with sciatica presence unspecified M54.5 [facility] [address] [facility] [id number] [address] [place] [address] Dec, Bug bite with infection, ini tial encounter W57.XXXA [place] [address] [address] Nov, Low back pain, unspecified back pain lat erality, with sciatica presence unspecified M54.5 [place] [address] [address] Nov, [place] [address] [address] Nov, Chronic obstructive pulmonary disease, u nspecified COPD type J44.9 [place] [address] [address] Nov, [place] [address] [address] 14 Oct, 2015 [facility] [address] [address] 08 Oct, 2015 Onychomycosis B35.1 and Ingrown nail L60 .0 [place] [address] [address] 02 Oct, 2015 Low back pain, unspecified back pain lat erality, with sciatica presence unspecified M54.5 [place] [address] [address] Sep, [place] [address] [address] Sep, Low back pain, unspecified back pain lat erality, with sciatica presence unspecified M54.5 [place] [address] [address] Aug, [place] [address] [address] Aug, Cramp of both lower extremities R25.2 ; Breast cancer screening Z12.39 ; Hyperlipidemia, unspecified hyperlipidemia type E78.5 and Atypical mole L81.9 [place] [address] [address] Aug, Chronic obstructive pulmonary disease, u nspecified COPD type J44.9 [place] [address] [address] Aug, Low back pain, unspecified back pain lat erality, with sciatica presence unspecified M54.5 [place] [address] [address] Aug, 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 [place] [address] [address] Jul, [place] [address] [address] Jul, [place] [address] [address] Jul, Allergic rhinitis, unspecified allergic rhinitis type J30.9 [place] [address] [address] Jul, Low back pain, unspecified back pain lat erality, with sciatica presence unspecified M54.5 [place] [address] [address] 07 Jul, 2015 Post-concussion headache G44.309 and Art hralgia, unspecified joint M25.50 [place] [address] [address] June, Chronic obstructive pulmonary disease, u nspecified COPD type J44.9 [place] [address] [address] June, [place] [address] [address] May, [place] [address] [address] May, [place] [address] [address] 30 Apr, 2015 Hip pain 719.45 and Atherosclerotic hear t disease of kiana coronary artery without angina pectoris I25.10 [place] [address] [address] Apr, History of self-care deficit Z86.59 ; Hy pertrophy of nail L60.2 and Onychomycosis B35.1 [place] [address] [address] Apr, [address] [address] Apr, Gastroenteritis K52.9 [place] [address] [address] Mar, [place] [address] [address] Mar, [facility] [address] [address] Mar, [facility] [address] [address] Mar, Acute pain due to injury G89.11 and Othe r chronic pain G89.29 [facility] [address] [address] Mar, [facility] [address] [address] Mar, [facility] [address] [address] Mar, [facility] [address] [address] Mar, [facility] [address] [address] Feb, Low back pain, unspecified back pain lat erality, with sciatica presence unspecified M54.5 [facility] [address] [address] Feb, [facility] [address] [address] Jan, [facility] [address] [address] Jan, Low back pain, unspecified back pain lat erality, with sciatica presence unspecified M54.5 [facility] [address] [address] Jan, Other chronic pain G89.29 and Acute pain due to injury G89.11 [facility] [address] [address] Dec, [facility] [address] [address] Nov, Essential hypertension I10 and Viral inf ection, unspecified B34.9 [facility] [address] [address] Nov, [facility] [address] [address] Nov, [facility] [address] [address] Oct, [facility] [address] [address] 14 Oct, 2014 [facility] [address] [address] Oct, [facility] [address] [address] Oct, [facility] [address] [address] Sep, [facility] [address] [address] Sep, Hypertrophy of nail 703.8 and Self-care deficit for hygiene V40.39 [place] [address] [address] Sep, [facility] [address] [address] Sep, [place] [address] [address] Aug, [facility] [address] [address] Jul, Onychomycosis 110.1 and Ingrown nail 703 .0 [place] [address] [address] Jul, Other screening mammogram V76.12 [facility] [address] [address] Jul, [facility] [address] [address] Jul, Hip pain 719.45 ; Visual disturbance 368 .9 and Conjunctivitis 372.30 [facility] [address] [place] [id number] [place] [address] June, [facility] [address] [place] [id number] [place] [address] June, [facility] [address] [place] [id number] [place] [address] June, [facility] [place] [facility] [address] [place] [id number] [place] [address] June, [facility] [address] [place] [id number] [place] [address] May, [facility] [address] [place] [id number] [place] [address] May, [facility] [address] [place] [id number] [place] [address] Apr, [facility] [place] [facility] [address] [place] [id number] [place] [address] Apr, [facility] [address] [place] [id number] [place] [address] Apr, [facility] [address] [place] [id number] [place] [address] Apr, [facility] [address] [place] [id number] [place] [address] Mar, [facility] [place] [facility] [address] [place] [id number] [place] [address] Mar, [facility] [place] [facility] [address] [place] [id number] [place] [address] Feb, [facility] [place] [facility] [address] [place] [id number] [place] [address] Feb, [facility] [place] [facility] [address] [place] [id number] [place] [address] Feb, [facility] [address] [place] [id number] [place] [address] Jan, [facility] [place] [facility] [id number] [place] [address] Jan, [facility] [place] [facility] [id number] [place] [address] Jan, [facility] [place] [facility] [id number] [place] [address] Jan, [facility] [place] [facility] [id number] [place] [address] Jan, [facility] [place] [facility] [id number] [place] [address] Jan, [facility] [place] [facility] [id number] [place] [address] Dec, [facility] [place] [facility] [id number] [place] [address] Nov, [facility] [place] [facility] [id number] [place] [address] Nov, [facility] [place] [facility] [id number] [place] [address] Nov, [facility] [place] [facility] [address] [id number] [place] [address] Nov, [facility] [place] [facility] [id number] [place] [address] Nov, 2013 [facility] [place] [facility] [id number] [place] [address] Nov, [facility] [place] [facility] [id number] [place] [address] Nov, 2013 [facility] [place] [facility] [id number] [place] [address] Nov, [facility] [place] [facility] [id number] [place] [address] Nov, [facility] [place] [facility] [id number] [place] [address] Nov, [facility] [place] [facility] [address] [facility] [id number] [place] [address] Oct, 2013 [facility] [place] [facility] [address] [facility] [id number] [facility] [facility] [place] [address] 25 Oct, 2013 [facility] [place] [facility] [address] [facility] [id number] [place] [address] Oct, [facility] [place] [facility] [address] [facility] [id number] [facility] [facility] [place] [address] 24 Oct, 2013 [facility] [place] [facility] [address] [facility] [id number] [place] [address] 15 Oct, 2013 [facility] [place] [facility] [address] [facility] [id number] [place] [address] 15 Oct, 2013 [facility] [place] [facility] [address] [facility] [id number] [facility] [facility] [place] [address] Oct, [facility] [place] [facility] [id number] [facility] [facility] [place] [address] Oct, [facility] [place] [facility] [address] [facility] [id number] [place] [address] Sep, [facility] [place] [facility] [address] [facility] [id number] [facility] [facility] [place] [address] Sep, [facility] [place] [facility] [id number] [place] [address] Sep, [facility] [place] [facility] [id number] [place] [address] Sep, [facility] [place] [facility] [id number] [place] [address] Aug, [facility] [place] [facility] [address] [facility] [id number] [facility] [place] [address] Aug, [facility] [id number] [place] [address] Aug, [facility] [address] [facility] [id number] [place] [address] Aug, 2013 [facility] [id number] [place] [address] Aug, 2013 [facility] [address] [facility] [id number] [place] [address] Aug, 2013 [facility] [address] [facility] [id number] [place] [address] Aug, [facility] [address] [facility] [id number] [place] [address] Aug, [facility] [id number] [place] [address] Jul, [facility] [address] [facility] [id number] [place] [address] Jul, [facility] [address] [facility] [id number] [place] [address] Jul, [facility] [id number] [place] [address] Jul, [facility] [id number] [place] [address] Jul, [facility] [id number] [place] [address] Jul, [facility] [id number] [place] [address] Jul, [facility] [id number] [place] [address] Jul, [facility] [id number] [place] [address] Jul, [facility] [id number] [place] [address] Jul, [facility] [address] [facility] [id number] [place] [address] Jul, [facility] [id number] [place] [address] Jul, [facility] [id number] [place] [address] Jul, [facility] [id number] [place] [address] Jul, [facility] [id number] [place] [address] Jul, [facility] [id number] [place] [address] Jul, [facility] [id number] [place] [address] Jul, [facility] [id number] [place] [address] June, [facility] [address] [facility] [id number] [place] [address] June, [facility] [id number] [place] [address] May, [facility] [id number] [place] [address] May, [facility] [id number] [place] [address] May, [facility] [id number] [place] [address] May, [facility] [id number] [place] [address] 17 Apr, 2013 [facility] [id number] [place] [address] 17 Apr, 2013 [facility] [id number] [place] [address] 13 Apr, 2013 [facility] [id number] [place] [address] 13 Apr, 2013 [facility] [id number] [place] [address] 11 Apr, 2013 [facility] [id number] [place] [address] 11 Apr, 2013 [facility] [id number] [place] [address] 10 Apr, 2013 [facility] [id number] [place] [address] Mar, [facility] [address] [facility] [id number] [place] [address] Mar, [facility] [id number] [place] [address] Mar, [facility] [id number] [place] [address] Mar, [facility] [id number] [place] [address] Feb, [facility] [id number] [place] [address] Feb, [facility] [id number] [place] [address] Feb, [facility] [id number] [place] [address] Feb, [facility] [id number] [place] [address] Jan, [facility] [id number] [place] [address] Jan, [facility] [id number] [place] [address] Jan, [facility] [id number] [place] [address] Jan, [facility] [id number] [place] [address] Dec, [facility] [id number] [place] [address] Dec, [facility] [id number] [place] [address] Dec, [facility] [id number] [place] [address] Dec, [facility] [id number] [place] [address] Dec, [facility] [id number] [place] [address] Nov, [facility] [address] [facility] [id number] [place] [address] Nov, [facility] [id number] [place] [address] Nov, [facility] [id number] [place] [address] Nov, [facility] [address] [facility] [id number] [place] [address] Nov, [facility] [address] [facility] [id number] [place] [address] Nov, [facility] [id number] [place] [address] Nov, [facility] [id number] [place] [address] Nov, [facility] [id number] [place] [address] Oct, [facility] [address] [facility] [id number] [place] [address] Oct, [facility] [id number] [place] [address] Sep, [facility] [id number] [place] [address] Sep, [facility] [id number] [place] [address] Sep, [facility] [address] [facility] [id number] [place] [address] Sep, [facility] [id number] [place] [address] Sep, [facility] [id number] [place] [address] Sep, [facility] [id number] [place] [address] Sep, [facility] [address] [facility] [id number] [facility] [facility] [place] [address] Aug, [facility] [address] [facility] [id number] [facility] [facility] [place] [address] Aug, [facility] [id number] [place] [address] Aug, [facility] [id number] [facility] [facility] [place] [address] Aug, [facility] [address] [facility] [id number] [place] [address] Aug, [facility] [id number] [place] [address] Aug, [facility] [id number] [place] [address] Aug, [facility] [id number] [place] [address] Aug, [facility] [id number] [place] [address] Jul, [facility] [id number] [place] [address] Jul, [facility] [id number] [place] [address] Jul, [facility] [id number] [place] [address] Jul, [facility] [address] [facility] [id number] [place] [address] June, [facility] [address] [facility] [id number] [place] [address] June, [facility] [id number] [place] [address] June, [facility] [id number] [place] [address] June, [facility] [id number] [facility] [facility] [place] [address] June, [facility] [id number] [place] [address] May, [facility] [id number] [place] [address] May, [facility] [id number] [place] [address] May, [facility] [id number] [place] [address] May, [facility] [id number] [place] [address] Apr, [facility] [id number] [place] [address] Apr, [facility] [id number] [place] [address] Apr, [facility] [id number] [place] [address] Apr, [facility] [id number] [place] [address] Mar, [facility] [id number] [place] [address] 15 Mar, 2012 [facility] [id number] [place] [address] Mar, [facility] [id number] [place] [address] 07 Mar, 2012 [facility] [id number] [place] [address] Feb, [facility] [id number] [place] [address] Jan, [facility] [id number] [place] [address] Jan, [facility] [id number] [place] [address] Jan, [facility] [id number] [place] [address] Dec, [facility] [id number] [place] [address] Dec, [facility] [id number] [place] [address] Dec, [facility] [id number] [place] [address] Dec, [facility] [id number] [place] [address] 15 Dec, 2011 [facility] [id number] [place] [address] 15 Dec, 2011 [facility] [id number] [place] [address] 14 Dec, 2011 [facility] [id number] [place] [address] Dec, [facility] [id number] [place] [address] Dec, [facility] [id number] [place] [address] Nov, [facility] [id number] [place] [address] 17 Nov, 2011 [facility] [id number] [place] [address] Nov, [facility] [id number] [place] [address] Nov, [facility] [id number] [place] [address] 10 Nov, 2011 [facility] [id number] [place] [address] 10 Nov, 2011 [facility] [id number] [place] [address] 12 Oct, 2011 [facility] [id number] [place] [address] Sep, [facility] [id number] [place] [address] Sep, [facility] [id number] [place] [address] Aug, [facility] [id number] [place] [address] Aug, [facility] [id number] [place] [address] Aug, [facility] [id number] [place] [address] Aug, [facility] [id number] [place] [address] Aug, [facility] [id number] [place] [address] Jul, [facility] [id number] [place] [address] Jul, [facility] [id number] [place] [address] June, [facility] [id number] [place] [address] June, [facility] [id number] [place] [address] June, [facility] [id number] [place] [address] June, [facility] [id number] [place] [address] May, [facility] [id number] [place] [address] Apr, [facility] [id number] [place] [address] Apr, [facility] [id number] [place] [address] Apr, [facility] [id number] [place] [address] Apr, [facility] [id number] [place] [address] Apr, [facility] [id number] [place] [address] Mar, [facility] [id number] [place] [address] Mar, [facility] [id number] [place] [address] Mar, [facility] [id number] [place] [address] Feb, [facility] [id number] [place] [address] Feb, [facility] [id number] [place] [address] Feb, [facility] [id number] [place] [address] Feb, [facility] [id number] [place] [address] Feb, [facility] [id number] [place] [address] Feb, [facility] [id number] [place] [address] Jan, [facility] [id number] [place] [address] Jan, [facility] [id number] [place] [address] Jan, [facility] [id number] [place] [address] Jan, [facility] [id number] [place] [address] Jan, [facility] [id number] [place] [address] Jul, [facility] [id number] [place] [address] June, [facility] [id number] [place] [address] Feb, [facility] [id number] [place] [address] Jan, [facility] [id number] [place] [address] Sep, [facility] [id number] [place] [address] Aug, [facility] [id number] [place] [address] May, [facility] [id number] [place] [address] Apr, [facility] [id number] [place] [address] Jan, [facility] [id number] [place] [address] Jan, [facility] [id number] [place] [address] Jan, [facility] [id number] [place] [address] Dec, [facility] [id number] [place] [address] Dec, [facility] [id number] [place] [address] Nov, [facility] [id number] [place] [address] Nov, [facility] [id number] [place] [address] Nov, IMMUNIZATIONS No Known Immunizations SOCIAL HISTORY Never Assessed REASON FOR VISIT PLAN OF CARE VITAL SIGNS MEDICATIONS No [...] Surgical History rectocele/cystocele repair, pessary fitt ed ([facility]) 05/2013 Surgical History Suspicious lesion removal 2015 Surgical History heart cath 03/03/2019 Hospitalization History [facility] acute gastoentereritis, dehydrati on 06/06 Hospitalization History Heart Cath 2013 Hospitalization History ER visit- 09/2018
--- OUTSIDE RECORDS SUMMARY | 2019-07-19 09:13 | XMS REPORT ---
Author Author Juanita PATIÑO Organization [facility] Address [address] [place] [address] Care Team Providers Care Enrollment Eligibility Representative Name Role Phone FUENTES PATIÑO Unavailable PROBLEMS Type Condition ICD9-CM Code QCO61-FU Code Onset Dates Condition S tatus SNOMED Code Problem Chronic obstructive pulmonary disease, unspecified COPD ty pe J44.9 Active 54302774 Problem Angina pectoris, unspecified I20.9 A ctive 143632237 Problem Atherosclerotic heart diseas e of [place] coronary artery without angina pectoris I25.10 Active 9230194347016 Problem Other chronic pain G89.29 Active 8 8476164 Problem Episodic cluster headache, not intractable G44.019 Active 167686590 Problem Lumbago with sciatica, left side M54.42 Active 639935105 Problem Acute bilateral low back pain with left-sided sciatica M54.42 Active 15374010 Problem COPD exacerbation J44.1 Active 29 [id number] Problem Seasonal allergic rhinitis due to pollen J30.1 Active 44889492 Problem 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.0 Active 985650194 Problem 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 Active 760730542216 7 Problem Anxiety F41.9 Active 80411291 Problem Primary osteoarthritis of right knee M17.11 Active 827237021211252 Problem Lumbago with sciatica, right side M54.41 Active 204725934 Problem Major depressive disorder, recurrent, mild F33.0 Active 813486023 Problem History of diabetes mellitus, type II Z86.39 Active 205305805 Problem Other chronic pain G89.29 Active 8 9839022 Problem Hypoglycemia E16.2 Active 3001929 03 ALLERGIES No Information ENCOUNTERS Encounter Location Date Diagnosis [facility] [address] [id number] [place] [address] 06 Mar, 2019 Primary osteoarthritis of right knee M17 .11 [place] [address] [address] Mar, [address] [address] Feb, Onychomycosis B35.1 ; Nail hypertrophy L 60.2 and Self-care deficit for grooming and hygiene Z74.[address] [address] Jan, Posterior right knee pain M25.561 ; Pain in left leg M79.605 ; Pain in right leg M79.604 ; Coronary artery disease of [place] artery of [place] heart with stable angina pectoris I25.118 and Encounter for immunization Z23 [address] [address] Dec, Nail hypertrophy L60.2 ; Onychomycosis B 35.1 and Self-care deficit for grooming and hygiene Z74.[address] [address] Oct, [address] [address] Sep, Other chest pain R07.[address] [address] Sep, [facility] [address] [facility] [id number] [address] [place] [address] Sep, Cellulitis of groin L03.[address] [address] Sep, Nail hypertrophy L60.2 and Self-care def icit for grooming and hygiene Z74.[address] [address] Aug, [address] [address] Aug, Hypoglycemia E16.2 ; Nonintractable epis odic headache, unspecified headache type R51 and Candidiasis of breast B37.89 [place] [address] [address] Aug, Nail hypertrophy L60.2 and Self-care def icit for grooming and hygiene Z74.1 [place] [address] [address] June, [facility] [address] [facility] [id number] [address] [place] [address] May, Bee sting, accidental or uni ntentional, initial encounter T63.441A [place] [address] [address] Apr, Primary osteoarthritis involving multipl e joints M15.0 ; Angina pectoris, unspecified I20.9 ; History of diabetes mellitus, type II Z86.39 and Chronic obstructive pulmonary disease, unspecified COPD type J44.9 [place] [address] [address] Apr, Nail hypertrophy L60.2 and Self-care def icit for grooming and hygiene Z74.1 [place] [address] [address] Mar, [facility] [place] [address] [address] [facility] [id number] [address] [place] [address] 13 Mar, 2018 Low back pain M54.5 [place] [address] [address] Mar, [place] [address] [address] Feb, [place] [address] [address] Feb, [place] [address] [address] Feb, Encounter for Medicare annual wellness e xam Z00.00 ; Major depressive disorder, recurrent, mild F33.0 ; Chronic obstructive pulmonary disease, unspecified COPD type J44.9 ; Atherosclerotic heart disease of [place] coronary artery without angina pectoris I25.10 ; Primary osteoarthritis involving multiple joints M15.0 ; Angina pectoris, unspecified I20.9 and 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 [place] [address] [address] Jan, [place] [address] [address] Jan, [place] [address] [address] Dec, Chronic obstructive pulmonary disease, u nspecified COPD type J44.9 ; Low back pain M54.5 ; Other chronic pain G89.29 and Moderate episode of recurrent major depressive disorder F33.1 [place] [address] [address] Nov, [place] [address] [address] Nov, Encounter for immunization Z23 [place] [address] [address] Nov, Allergic rhinitis due to pollen, unspeci fied seasonality J30.1 ; Primary osteoarthritis involving multiple joints M15.0 and Encounter for immunization Z23 [place] [address] [address] Oct, Nail hypertrophy L60.2 and Self-care def icit for hygiene R46.0 [facility] [address] [facility] [id number] [address] [place] [address] Oct, Chest congestion R09.89 ; So re throat J02.9 and Cough R05 [place] [address] [address] Sep, [place] [address] [address] Aug, Low back pain M54.5 ; Other chronic pain G89.29 ; Pain in right knee M25.561 ; Pain in left knee M25.562 and Rash R21 [place] [address] [address] Aug, Nail hypertrophy L60.2 and Self-care def icit for hygiene R46.0 [place] [address] [address] June, Hypertrophy of nail L60.2 and Self-care deficit for hygiene R46.0 [place] [address] [address] June, [place] [address] [address] June, COPD exacerbation J44.1 [place] [address] [address] May, [place] [address] [address] Apr, Seasonal allergic rhinitis due to pollen J30.1 ; Encounter for immunization Z23 ; COPD exacerbation J44.1 ; Encounter for screening mammogram for breast cancer Z12.31 and Colon cancer screening Z12.11 [place] [address] [address] Apr, [place] [address] [address] Feb, Lumbago with sciatica, right side M54.41 ; Lumbago with sciatica, left side M54.42 ; Other chronic pain G89.29 ; Left hip pain M25.552 and Anxiety F41.9 [facility] [address] [facility] [id number] [address] [place] [address] Jan, History of asthma Z87.09 ; C OPD exacerbation J44.1 and Acute non-recurrent maxillary sinusitis J01.00 [place] [address] [address] Jan, Other chronic pain G89.29 and Acute bila teral low back pain with left- sided sciatica M54.42 [place] [address] [address] 14 Jan, 2017 Other chronic pain G89.29 and Acute bila teral low back pain with left- sided sciatica M54.[address] [address] Dec, Trochanteric bursitis of left hip M70.62 ; Left hip pain M25.552 and Other chronic pain G89.29 [facility] [address] [address] Nov, Local reaction to insect sti ng, accidental or unintentional, initial encounter T63.481A and Acute dermatitis L30.[address] [address] Nov, Breast cancer screening Z12.[address] [address] Nov, Acute bilateral low back pain with left- sided sciatica M54.42 and Low back pain, unspecified back pain laterality, with sciatica presence unspecified M54.5 [facility] [place] [address] [address] Oct, Acute bilateral low back rangel n with left-sided sciatica M54.[address] [address] Sep, Low back pain, unspecified back pain lat erality, with sciatica presence unspecified M54.5 [place] [address] [address] Sep, [address] [address] Aug, Nail hypertrophy L60.2 ; Onychomycosis B 35.1 and Self-care deficit for hygiene R46.[address] [address] Aug, [address] [address] Aug, [facility] [address] [facility] [id number] [address] [place] [address] Jul, Rash R21 [facility] [place] [address] [address] Jul, [facility] [place] [address] [address] Jul, Low back pain, unspecified back pain lat erality, with sciatica presence unspecified M54.5 [place] [address] [address] June, Nail hypertrophy L60.2 ; Self-care defic it for hygiene R46.0 and Other chronic pain G89.29 [place] [address] [address] June, Low back pain, unspecified back pain lat erality, with sciatica presence unspecified M54.5 [place] [address] [address] May, [place] [address] [address] May, [facility] [place] [address] [address] May, [place] [address] [address] May, Low back pain, unspecified back pain lat erality, with sciatica presence unspecified M54.5 [place] [address] [address] Apr, Breast pain, left N64.4 ; Left arm pain M79.602 and Family history of diabetes mellitus Z83.3 [place] [address] [address] 17 Apr, 2016 Low back pain, unspecified back pain lat erality, with sciatica presence unspecified M54.5 [place] [address] [address] Apr, [facility] [place] [address] [address] 28 Mar, 2016 Onychomycosis B35.1 and Self-care defici t for hygiene R46.0 [facility] [place] [address] [address] 17 Mar, 2016 Low back pain, unspecified back pain lat erality, with sciatica presence unspecified M54.5 [facility] [address] [facility] [id number] [address] [place] [address] 14 Mar, 2016 Pain in left shoulder M25.51 2 and Other chronic pain G89.29 [facility] [place] [address] [address] 13 Mar, 2016 Arthralgia, unspecified joint M25.50 [place] [address] [address] Mar, [facility] [place] [address] [address] Feb, Low back pain, unspecified back pain lat erality, with sciatica presence unspecified M54.5 [facility] [place] [address] [address] Feb, [facility] [address] [id number] Feb, Dental examination Z01.20 [facility] [address] [id number] Feb, Dental examination Z01.20 [facility] [place] [address] [address] Feb, Cramp of both lower extremities R25.2 [facility] [place] [address] [address] Feb, [facility] [place] [address] [address] Jan, Hypoxemia R09.02 ; Episodic cluster head ache, not intractable G44.019 and Cramp of both lower extremities R25.2 [place] [address] [address] Jan, [place] [address] [address] Jan, Low back pain, unspecified back pain lat erality, with sciatica presence unspecified M54.5 [place] [address] [address] Jan, Hypertrophy of nail L60.2 ; Onychomycosi s B35.1 and Self-care deficit for hygiene R46.0 [place] [address] [address] Jan, Low back pain, unspecified back pain lat erality, with sciatica presence unspecified M54.5 [place] [address] [address] Dec, Low back pain, unspecified back pain lat erality, with sciatica presence unspecified M54.5 [facility] [address] [facility] [id number] [address] [place] [address] Dec, Bug bite with infection, ini tial encounter W57.XXXA [place] [address] [address] Nov, Low back pain, unspecified back pain lat erality, with sciatica presence unspecified M54.5 [place] [address] [address] Nov, [place] [address] [address] Nov, Chronic obstructive pulmonary disease, u nspecified COPD type J44.9 [place] [address] [address] Nov, [place] [address] [address] 14 Oct, 2015 [facility] [place] [address] [address] 08 Oct, 2015 Onychomycosis B35.1 and Ingrown nail L60 .0 [place] [address] [address] 02 Oct, 2015 Low back pain, unspecified back pain lat erality, with sciatica presence unspecified M54.5 [place] [address] [address] Sep, [place] [address] [address] Sep, Low back pain, unspecified back pain lat erality, with sciatica presence unspecified M54.5 [place] [address] [address] Aug, [place] [address] [address] Aug, Cramp of both lower extremities R25.2 ; Breast cancer screening Z12.39 ; Hyperlipidemia, unspecified hyperlipidemia type E78.5 and Atypical mole L81.9 [place] [address] [address] Aug, Chronic obstructive pulmonary disease, u nspecified COPD type J44.9 [place] [address] [address] Aug, Low back pain, unspecified back pain lat erality, with sciatica presence unspecified M54.5 [place] [address] [address] Aug, Atherosclerotic heart disease of [place] coronary artery without angina pectoris I25.10 [place] [address] [address] Jul, [place] [address] [address] Jul, [place] [address] [address] Jul, Allergic rhinitis, unspecified allergic rhinitis type J30.9 [place] [address] [address] Jul, Low back pain, unspecified back pain lat erality, with sciatica presence unspecified M54.5 [place] [address] [address] 07 Jul, 2015 Post-concussion headache G44.309 and Art hralgia, unspecified joint M25.50 [place] [address] [address] June, Chronic obstructive pulmonary disease, u nspecified COPD type J44.9 [place] [address] [address] June, [place] [address] [address] May, [place] [address] [address] May, [place] [address] [address] 30 Apr, 2015 Hip pain 719.45 and Atherosclerotic hear t disease of [place] coronary artery without angina pectoris I25.10 [place] [address] [address] Apr, History of self-care deficit Z86.59 ; Hy pertrophy of nail L60.2 and Onychomycosis B35.1 [place] [address] [address] Apr, [address] [address] Apr, Gastroenteritis K52.9 [place] [address] [address] Mar, [place] [address] [address] Mar, [facility] [place] [address] [address] Mar, [facility] [place] [address] [address] Mar, Acute pain due to injury G89.11 and Othe r chronic pain G89.29 [facility] [place] [address] [address] Mar, [facility] [place] [address] [address] Mar, [facility] [place] [address] [address] Mar, [facility] [place] [address] [address] Mar, [facility] [place] [address] [address] Feb, Low back pain, unspecified back pain lat erality, with sciatica presence unspecified M54.5 [facility] [place] [address] [address] Feb, [facility] [place] [address] [address] Jan, [facility] [place] [address] [address] Jan, Low back pain, unspecified back pain lat erality, with sciatica presence unspecified M54.5 [facility] [place] [address] [address] Jan, Other chronic pain G89.29 and Acute pain due to injury G89.11 [facility] [place] [address] [address] Dec, [facility] [place] [address] [address] Nov, Essential hypertension I10 and Viral inf ection, unspecified B34.9 [facility] [place] [address] [address] Nov, [facility] [place] [address] [address] Nov, [facility] [place] [address] [address] Oct, [facility] [place] [address] [address] 14 Oct, 2014 [facility] [place] [address] [address] Oct, [facility] [address] [address] Oct, [facility] [place] [address] [address] Sep, [facility] [place] [address] [address] Sep, Hypertrophy of nail 703.8 and Self-care deficit for hygiene V40.39 [place] [address] [address] Sep, [facility] [place] [address] [address] Sep, [place] [address] [address] Aug, [facility] [address] [address] Jul, Onychomycosis 110.1 and Ingrown nail 703 .0 [place] [address] [address] Jul, Other screening mammogram V76.12 [facility] [place] [address] [address] Jul, [facility] [address] [address] Jul, Hip pain 719.45 ; Visual disturbance 368 .9 and Conjunctivitis 372.30 [facility] [address] [place] [id number] [place] [address] June, [facility] [address] [place] [id number] [place] [address] June, [facility] [address] [place] [id number] [place] [address] June, [facility] [place] [facility] [address] [place] [id number] [place] [address] June, [facility] [address] [place] [id number] [place] [address] May, [facility] [address] [place] [id number] [place] [address] May, [facility] [address] [place] [id number] [place] [address] Apr, [facility] [place] [facility] [address] [place] [id number] [place] [address] Apr, [facility] [address] [place] [id number] [place] [address] Apr, [facility] [address] [place] [id number] [place] [address] Apr, [facility] [address] [place] [id number] [place] [address] Mar, [facility] [place] [facility] [address] [place] [id number] [place] [address] Mar, [facility] [place] [facility] [address] [place] [id number] [place] [address] Feb, [facility] [place] [facility] [address] [place] [id number] [place] [address] Feb, [facility] [place] [facility] [address] [place] [id number] [place] [address] Feb, [facility] [address] [place] [id number] [place] [address] Jan, [facility] [place] [facility] [address] [id number] [place] [address] Jan, [facility] [place] [facility] [address] [id number] [place] [address] Jan, [facility] [place] [facility] [address] [id number] [place] [address] Jan, [facility] [place] [facility] [address] [id number] [place] [address] Jan, [facility] [place] [facility] [address] [id number] [place] [address] Jan, [facility] [place] [facility] [address] [id number] [place] [address] Dec, [facility] [place] [facility] [address] [id number] [place] [address] Nov, [facility] [place] [facility] [address] [id number] [place] [address] Nov, [facility] [place] [facility] [address] [id number] [place] [address] Nov, [facility] [place] [facility] [address] [id number] [place] [address] Nov, [facility] [place] [facility] [address] [id number] [place] [address] Nov, 2013 [facility] [place] [facility] [address] [id number] [place] [address] Nov, [facility] [place] [facility] [address] [id number] [place] [address] Nov, 2013 [facility] [place] [facility] [address] [id number] [place] [address] Nov, [facility] [place] [facility] [address] [id number] [place] [address] Nov, [facility] [place] [facility] [address] [id number] [place] [address] Nov, [facility] [place] [facility] [address] [id number] [place] [address] Oct, 2013 [facility] [place] [facility] [address] [facility] [id number] [facility] [address] 25 Oct, 2013 [facility] [place] [facility] [address] [facility] [id number] [place] [address] Oct, [facility] [place] [facility] [address] [facility] [id number] [facility] [place] [address] 24 Oct, 2013 [facility] [place] [facility] [address] [facility] [id number] [place] [address] 15 Oct, 2013 [facility] [place] [facility] [address] [facility] [id number] [place] [address] 15 Oct, 2013 [facility] [place] [facility] [address] [facility] [id number] [facility] [place] [address] Oct, [facility] [place] [facility] [address] [id number] [facility] [place] [address] Oct, [facility] [place] [facility] [address] [id number] [place] [address] Sep, [facility] [place] [facility] [address] [facility] [id number] [facility] [place] [address] Sep, [facility] [place] [facility] [address] [id number] [place] [address] Sep, [facility] [place] [facility] [address] [id number] [place] [address] Sep, [facility] [place] [facility] [address] [id number] [place] [address] Aug, [facility] [place] [facility] [address] [facility] [id number] [facility] [place] [address] Aug, [facility] [place] [facility] [address] [id number] [place] [address] Aug, [facility] [place] [facility] [address] [facility] [id number] [place] [address] Aug, 2013 [facility] [place] [facility] [address] [id number] [place] [address] Aug, 2013 [facility] [place] [facility] [address] [facility] [id number] [place] [address] Aug, 2013 [facility] [place] [facility] [address] [facility] [id number] [place] [address] Aug, [facility] [place] [facility] [address] [facility] [id number] [place] [address] Aug, [facility] [place] [facility] [address] [id number] [place] [address] Jul, [facility] [address] [facility] [id number] [place] [address] Jul, [facility] [address] [facility] [id number] [place] [address] Jul, [facility] [address] [id number] [place] [address] Jul, [facility] [address] [id number] [place] [address] Jul, [facility] [address] [id number] [place] [address] Jul, [facility] [address] [id number] [place] [address] Jul, [facility] [address] [id number] [place] [address] Jul, [facility] [address] [id number] [place] [address] Jul, [facility] [address] [id number] [place] [address] Jul, [facility] [address] [facility] [id number] [place] [address] Jul, [facility] [address] [id number] [place] [address] Jul, [facility] [address] [id number] [place] [address] Jul, [facility] [address] [id number] [place] [address] Jul, [facility] [address] [id number] [place] [address] Jul, [facility] [address] [id number] [place] [address] Jul, [facility] [address] [id number] [place] [address] Jul, [facility] [address] [id number] [place] [address] June, [facility] [address] [facility] [id number] [place] [address] June, [facility] [address] [id number] [place] [address] May, [facility] [address] [id number] [place] [address] May, [facility] [address] [id number] [place] [address] May, [facility] [address] [id number] [place] [address] May, [facility] [address] [id number] [place] [address] 17 Apr, 2013 [facility] [address] [id number] [place] [address] 17 Apr, 2013 [facility] [address] [id number] [place] [address] 13 Apr, 2013 [facility] [address] [id number] [place] [address] 13 Apr, 2013 [facility] [address] [id number] [place] [address] 11 Apr, 2013 [facility] [address] [id number] [place] [address] 11 Apr, 2013 [facility] [address] [id number] [place] [address] 10 Apr, 2013 [facility] [address] [id number] [place] [address] Mar, [facility] [address] [facility] [id number] [place] [address] Mar, [facility] [address] [id number] [place] [address] Mar, [facility] [address] [id number] [place] [address] Mar, [facility] [address] [id number] [place] [address] Feb, [facility] [address] [id number] [place] [address] Feb, [facility] [address] [id number] [place] [address] Feb, [facility] [address] [id number] [place] [address] Feb, [facility] [address] [id number] [place] [address] Jan, [facility] [address] [id number] [place] [address] Jan, [facility] [address] [id number] [place] [address] Jan, [facility] [address] [id number] [place] [address] Jan, [facility] [address] [id number] [place] [address] Dec, [facility] [address] [id number] [place] [address] Dec, [facility] [address] [id number] [place] [address] Dec, [facility] [address] [id number] [place] [address] Dec, [facility] [address] [id number] [place] [address] Dec, [facility] [address] [id number] [place] [address] Nov, [facility] [address] [facility] [id number] [place] [address] Nov, [facility] [address] [id number] [place] [address] Nov, [facility] [address] [id number] [place] [address] Nov, [facility] [address] [facility] [id number] [place] [address] Nov, [facility] [address] [facility] [id number] [place] [address] Nov, [facility] [address] [id number] [place] [address] Nov, [facility] [address] [id number] [place] [address] Nov, [facility] [address] [id number] [place] [address] Oct, [facility] [address] [facility] [id number] [place] [address] Oct, [facility] [address] [id number] [place] [address] Sep, [facility] [address] [id number] [place] [address] Sep, [facility] [address] [id number] [place] [address] Sep, [facility] [address] [facility] [id number] [place] [address] Sep, [facility] [address] [id number] [place] [address] Sep, [facility] [address] [id number] [place] [address] Sep, [facility] [address] [id number] [place] [address] Sep, [facility] [address] [facility] [id number] [facility] [place] [address] Aug, [facility] [address] [facility] [id number] [facility] [place] [address] Aug, [facility] [address] [id number] [place] [address] Aug, [facility] [address] [id number] [facility] [place] [address] Aug, [facility] [address] [facility] [id number] [place] [address] Aug, [facility] [address] [id number] [place] [address] Aug, [facility] [address] [id number] [place] [address] Aug, [facility] [address] [id number] [place] [address] Aug, [facility] [address] [id number] [place] [address] Jul, [facility] [address] [id number] [place] [address] Jul, [facility] [address] [id number] [place] [address] Jul, [facility] [address] [id number] [place] [address] Jul, [facility] [address] [facility] [id number] [place] [address] June, [facility] [address] [facility] [id number] [place] [address] June, [facility] [address] [id number] [place] [address] June, [facility] [address] [id number] [place] [address] June, [facility] [address] [id number] [facility] [place] [address] June, [facility] [address] [id number] [place] [address] May, [facility] [address] [id number] [place] [address] May, [facility] [address] [id number] [place] [address] May, [facility] [address] [id number] [place] [address] May, [facility] [address] [id number] [place] [address] Apr, [facility] [address] [id number] [place] [address] Apr, [facility] [address] [id number] [place] [address] Apr, [facility] [address] [id number] [place] [address] Apr, [facility] [address] [id number] [place] [address] Mar, [facility] [address] [id number] [place] [address] 15 Mar, 2012 [facility] [address] [id number] [place] [address] Mar, [facility] [address] [id number] [place] [address] 07 Mar, 2012 [facility] [address] [id number] [place] [address] Feb, [facility] [address] [id number] [place] [address] Jan, [facility] [address] [id number] [place] [address] Jan, [facility] [address] [id number] [place] [address] Jan, [facility] [address] [id number] [place] [address] Dec, [facility] [address] [id number] [place] [address] Dec, [facility] [address] [id number] [place] [address] Dec, [facility] [address] [id number] [place] [address] Dec, [facility] [address] [id number] [place] [address] 15 Dec, 2011 [facility] [address] [id number] [place] [address] 15 Dec, 2011 [facility] [address] [id number] [place] [address] 14 Dec, 2011 [facility] [id number] [place] [address] Dec, [facility] [address] [id number] [place] [address] Dec, [facility] [address] [id number] [place] [address] Nov, [facility] [address] [id number] [place] [address] 17 Nov, 2011 [facility] [address] [id number] [place] [address] Nov, [facility] [address] [id number] [place] [address] Nov, [facility] [address] [id number] [place] [address] 10 Nov, 2011 [facility] [address] [id number] [place] [address] 10 Nov, 2011 [facility] [address] [id number] [place] [address] 12 Oct, 2011 [facility] [address] [id number] [place] [address] Sep, [facility] [address] [id number] [place] [address] Sep, [facility] [address] [id number] [place] [address] Aug, [facility] [address] [id number] [place] [address] Aug, [facility] [address] [id number] [place] [address] Aug, [facility] [address] [id number] [place] [address] Aug, [facility] [address] [id number] [place] [address] Aug, [facility] [address] [id number] [place] [address] Jul, [facility] [address] [id number] [place] [address] Jul, [facility] [address] [id number] [place] [address] June, [facility] [address] [id number] [place] [address] June, [facility] [address] [id number] [place] [address] June, [facility] [address] [id number] [place] [address] June, [facility] [address] [id number] [place] [address] May, [facility] [address] [id number] [place] [address] Apr, [facility] [address] [id number] [place] [address] Apr, [facility] [address] [id number] [place] [address] Apr, [facility] [address] [id number] [place] [address] Apr, [facility] [address] [id number] [place] [address] Apr, [facility] [address] [id number] [place] [address] Mar, [facility] [address] [id number] [place] [address] Mar, [facility] [address] [id number] [place] [address] Mar, [facility] [address] [id number] [place] [address] Feb, [facility] [address] [id number] [place] [address] Feb, [facility] [address] [id number] [place] [address] Feb, [facility] [address] [id number] [place] [address] Feb, [facility] [address] [id number] [place] [address] Feb, [facility] [address] [id number] [place] [address] Feb, [facility] [address] [id number] [place] [address] Jan, [facility] [address] [id number] [place] [address] Jan, [facility] [address] [id number] [place] [address] Jan, [facility] [id number] [place] [address] Jan, [facility] [address] [id number] [place] [address] Jan, [facility] [id number] [place] [address] Jul, [facility] [place] [id number] [place] [address] June, [facility] [place] [id number] [place] [address] Feb, [facility] [place] [id number] [place] [address] Jan, [facility] [place] [id number] [place] [address] Sep, [facility] [place] [id number] [place] [address] Aug, [facility] [place] [id number] [place] [address] May, [facility] [place] [id number] [place] [address] Apr, [facility] [place] [id number] [place] [address] Jan, [facility] [place] [id number] [place] [address] Jan, [facility] [place] [id number] [place] [address] Jan, [facility] [place] [id number] [place] [address] Dec, [facility] [place] [id number] [place] [address] Dec, [facility] [place] [id number] [place] [address] Nov, [facility] [place] [id number] [place] [address] Nov, [facility] [place] [id number] [place] [address] Nov, IMMUNIZATIONS No Known Immunizations SOCIAL HISTORY [...] Surgical History rectocele/cystocele repair, [facility]2013 Surgical History Suspicious lesion removal 2015 Surgical History heart cath 03/03/2019 Hospitalization History [facility] acute gastoentereritis, dehydrati on 06/06 Hospitalization History Heart Cath 2013 Hospitalization History ER visit- 09/2018
--- OUTSIDE RECORDS SUMMARY | 2019-07-19 09:13 | XMS REPORT ---
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 Name Role Phone FUENTES PATIÑO Unavailable PROBLEMS Type Condition ICD9-CM Code AWB86-UZ Code Onset Dates Condition S tatus SNOMED Code Problem Chronic obstructive pulmonary disease, unspecified COPD ty pe J44.9 Active 63023195 Problem Angina pectoris, unspecified I20.9 A ctive 560870920 Problem Atherosclerotic heart diseas e of [place] coronary artery without angina pectoris I25.10 Active 2216959508560 Problem Other chronic pain G89.29 Active 8 3980293 Problem Episodic cluster headache, not intractable G44.019 Active 909487460 Problem Lumbago with sciatica, left side M54.42 Active 699478358 Problem Acute bilateral low back pain with left-sided sciatica M54.42 Active 32269336 Problem COPD exacerbation J44.1 Active 29 [id number] Problem Seasonal allergic rhinitis due to pollen J30.1 Active 08283627 Problem 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.0 Active 184820354 Problem 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 Active 412443910498 7 Problem Anxiety F41.9 Active 98431603 Problem Primary osteoarthritis of right knee M17.11 Active 357776389936826 Problem Lumbago with sciatica, right side M54.41 Active 827143677 Problem Major depressive disorder, recurrent, mild F33.0 Active 743630613 Problem History of diabetes mellitus, type II Z86.39 Active 659129290 Problem Other chronic pain G89.29 Active 8 5965463 Problem Hypoglycemia E16.2 Active 6235106 03 ALLERGIES No Information ENCOUNTERS Encounter Location Date Diagnosis [facility] [address] [id number] [place] [address] 06 Mar, 2019 Primary osteoarthritis of right knee M17 .11 [place] [address] [address] Mar, [address] [address] Feb, Onychomycosis B35.1 ; Nail hypertrophy L 60.2 and Self-care deficit for grooming and hygiene Z74.[address] [address] Jan, Posterior right knee pain M25.561 ; Pain in left leg M79.605 ; Pain in right leg M79.604 ; Coronary artery disease of [place] artery of [place] heart with stable angina pectoris I25.118 and Encounter for immunization Z23 [address] [address] Dec, Nail hypertrophy L60.2 ; Onychomycosis B 35.1 and Self-care deficit for grooming and hygiene Z74.[address] [address] Oct, [address] [address] Sep, Other chest pain R07.[address] [address] Sep, [facility] [address] [facility] [id number] [address] [place] [address] Sep, Cellulitis of groin L03.[address] [address] Sep, Nail hypertrophy L60.2 and Self-care def icit for grooming and hygiene Z74.[address] [address] Aug, [address] [address] Aug, Hypoglycemia E16.2 ; Nonintractable epis odic headache, unspecified headache type R51 and Candidiasis of breast B37.89 [place] [address] [address] Aug, Nail hypertrophy L60.2 and Self-care def icit for grooming and hygiene Z74.1 [place] [address] [address] June, [facility] [address] [facility] [id number] [address] [place] [address] May, Bee sting, accidental or uni ntentional, initial encounter T63.441A [place] [address] [address] Apr, Primary osteoarthritis involving multipl e joints M15.0 ; Angina pectoris, unspecified I20.9 ; History of diabetes mellitus, type II Z86.39 and Chronic obstructive pulmonary disease, unspecified COPD type J44.9 [place] [address] [address] Apr, Nail hypertrophy L60.2 and Self-care def icit for grooming and hygiene Z74.1 [place] [address] [address] Mar, [facility] [place] [address] [facility] [id number] [address] [place] [address] 13 Mar, 2018 Low back pain M54.5 [place] [address] [address] Mar, [place] [address] [address] Feb, [place] [address] [address] Feb, [place] [address] [address] Feb, Encounter for Medicare annual wellness e xam Z00.00 ; Major depressive disorder, recurrent, mild F33.0 ; Chronic obstructive pulmonary disease, unspecified COPD type J44.9 ; Atherosclerotic heart disease of [place] coronary artery without angina pectoris I25.10 ; Primary osteoarthritis involving multiple joints M15.0 ; Angina pectoris, unspecified I20.9 and 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 [place] [address] [address] Jan, [place] [address] [address] Jan, [place] [address] [address] Dec, Chronic obstructive pulmonary disease, u nspecified COPD type J44.9 ; Low back pain M54.5 ; Other chronic pain G89.29 and Moderate episode of recurrent major depressive disorder F33.1 [place] [address] [address] Nov, [place] [address] [address] Nov, Encounter for immunization Z23 [place] [address] [address] Nov, Allergic rhinitis due to pollen, unspeci fied seasonality J30.1 ; Primary osteoarthritis involving multiple joints M15.0 and Encounter for immunization Z23 [place] [address] [address] Oct, Nail hypertrophy L60.2 and Self-care def icit for hygiene R46.0 [facility] [address] [facility] [id number] [address] [place] [address] Oct, Chest congestion R09.89 ; So re throat J02.9 and Cough R05 [place] [address] [address] Sep, [place] [address] [address] Aug, Low back pain M54.5 ; Other chronic pain G89.29 ; Pain in right knee M25.561 ; Pain in left knee M25.562 and Rash R21 [place] [address] [address] Aug, Nail hypertrophy L60.2 and Self-care def icit for hygiene R46.0 [place] [address] [address] June, Hypertrophy of nail L60.2 and Self-care deficit for hygiene R46.0 [place] [address] [address] June, [place] [address] [address] June, COPD exacerbation J44.1 [place] [address] [address] May, [place] [address] [address] Apr, Seasonal allergic rhinitis due to pollen J30.1 ; Encounter for immunization Z23 ; COPD exacerbation J44.1 ; Encounter for screening mammogram for breast cancer Z12.31 and Colon cancer screening Z12.11 [place] [address] [address] Apr, [place] [address] [address] Feb, Lumbago with sciatica, right side M54.41 ; Lumbago with sciatica, left side M54.42 ; Other chronic pain G89.29 ; Left hip pain M25.552 and Anxiety F41.9 [facility] [address] [facility] [id number] [address] [place] [address] Jan, History of asthma Z87.09 ; C OPD exacerbation J44.1 and Acute non-recurrent maxillary sinusitis J01.00 [place] [address] [address] Jan, Other chronic pain G89.29 and Acute bila teral low back pain with left- sided sciatica M54.42 [place] [address] [address] 14 Jan, 2017 Other chronic pain G89.29 and Acute bila teral low back pain with left- sided sciatica M54.[address] [address] Dec, Trochanteric bursitis of left hip M70.62 ; Left hip pain M25.552 and Other chronic pain G89.29 [facility] [address] [address] Nov, Local reaction to insect sti ng, accidental or unintentional, initial encounter T63.481A and Acute dermatitis L30.[address] [address] Nov, Breast cancer screening Z12.[address] [address] Nov, Acute bilateral low back pain with left- sided sciatica M54.42 and Low back pain, unspecified back pain laterality, with sciatica presence unspecified M54.5 [facility] [place] [address] [address] Oct, Acute bilateral low back rangel n with left-sided sciatica M54.[address] [address] Sep, Low back pain, unspecified back pain lat erality, with sciatica presence unspecified M54.5 [place] [address] [address] Sep, [address] [address] Aug, Nail hypertrophy L60.2 ; Onychomycosis B 35.1 and Self-care deficit for hygiene R46.[address] [address] Aug, [address] [address] Aug, [facility] [address] [facility] [id number] [address] [place] [address] Jul, Rash R21 [facility] [address] [address] Jul, [facility] [address] [address] Jul, Low back pain, unspecified back pain lat erality, with sciatica presence unspecified M54.5 [place] [address] [address] June, Nail hypertrophy L60.2 ; Self-care defic it for hygiene R46.0 and Other chronic pain G89.29 [place] [address] [address] June, Low back pain, unspecified back pain lat erality, with sciatica presence unspecified M54.5 [place] [address] [address] May, [place] [address] [address] May, [facility] [address] [address] May, [place] [address] [address] May, Low back pain, unspecified back pain lat erality, with sciatica presence unspecified M54.5 [place] [address] [address] Apr, Breast pain, left N64.4 ; Left arm pain M79.602 and Family history of diabetes mellitus Z83.3 [place] [address] [address] 17 Apr, 2016 Low back pain, unspecified back pain lat erality, with sciatica presence unspecified M54.5 [place] [address] [address] Apr, [facility] [address] [address] 28 Mar, 2016 Onychomycosis B35.1 and Self-care defici t for hygiene R46.0 [facility] [address] [address] 17 Mar, 2016 Low back pain, unspecified back pain lat erality, with sciatica presence unspecified M54.5 [facility] [address] [facility] [id number] [address] [place] [address] 14 Mar, 2016 Pain in left shoulder M25.51 2 and Other chronic pain G89.29 [facility] [address] [address] 13 Mar, 2016 Arthralgia, unspecified joint M25.50 [place] [address] [address] Mar, [facility] [address] [address] Feb, Low back pain, unspecified back pain lat erality, with sciatica presence unspecified M54.5 [facility] [address] [address] Feb, [facility] [address] [id number] Feb, Dental examination Z01.20 [facility] [address] [id number] Feb, Dental examination Z01.20 [facility] [address] [address] Feb, Cramp of both lower extremities R25.2 [facility] [address] [address] Feb, [facility] [address] [address] Jan, Hypoxemia R09.02 ; Episodic cluster head ache, not intractable G44.019 and Cramp of both lower extremities R25.2 [place] [address] [address] Jan, [place] [address] [address] Jan, Low back pain, unspecified back pain lat erality, with sciatica presence unspecified M54.5 [place] [address] [address] Jan, Hypertrophy of nail L60.2 ; Onychomycosi s B35.1 and Self-care deficit for hygiene R46.0 [place] [address] [address] Jan, Low back pain, unspecified back pain lat erality, with sciatica presence unspecified M54.5 [place] [address] [address] Dec, Low back pain, unspecified back pain lat erality, with sciatica presence unspecified M54.5 [facility] [address] [facility] [id number] [address] [place] [address] Dec, Bug bite with infection, ini tial encounter W57.XXXA [place] [address] [address] Nov, Low back pain, unspecified back pain lat erality, with sciatica presence unspecified M54.5 [place] [address] [address] Nov, [place] [address] [address] Nov, Chronic obstructive pulmonary disease, u nspecified COPD type J44.9 [place] [address] [address] Nov, [place] [address] [address] 14 Oct, 2015 [facility] [address] [address] 08 Oct, 2015 Onychomycosis B35.1 and Ingrown nail L60 .0 [place] [address] [address] 02 Oct, 2015 Low back pain, unspecified back pain lat erality, with sciatica presence unspecified M54.5 [place] [address] [address] Sep, [place] [address] [address] Sep, Low back pain, unspecified back pain lat erality, with sciatica presence unspecified M54.5 [place] [address] [address] Aug, [place] [address] [address] Aug, Cramp of both lower extremities R25.2 ; Breast cancer screening Z12.39 ; Hyperlipidemia, unspecified hyperlipidemia type E78.5 and Atypical mole L81.9 [place] [address] [address] Aug, Chronic obstructive pulmonary disease, u nspecified COPD type J44.9 [place] [address] [address] Aug, Low back pain, unspecified back pain lat erality, with sciatica presence unspecified M54.5 [place] [address] [address] Aug, Atherosclerotic heart disease of [place] coronary artery without angina pectoris I25.10 [place] [address] [address] Jul, [place] [address] [address] Jul, [place] [address] [address] Jul, Allergic rhinitis, unspecified allergic rhinitis type J30.9 [place] [address] [address] Jul, Low back pain, unspecified back pain lat erality, with sciatica presence unspecified M54.5 [place] [address] [address] 07 Jul, 2015 Post-concussion headache G44.309 and Art hralgia, unspecified joint M25.50 [place] [address] [address] June, Chronic obstructive pulmonary disease, u nspecified COPD type J44.9 [place] [address] [address] June, [place] [address] [address] May, [place] [address] [address] May, [place] [address] [address] 30 Apr, 2015 Hip pain 719.45 and Atherosclerotic hear t disease of [place] coronary artery without angina pectoris I25.10 [place] [address] [address] Apr, History of self-care deficit Z86.59 ; Hy pertrophy of nail L60.2 and Onychomycosis B35.1 [place] [address] [address] Apr, [address] [address] Apr, Gastroenteritis K52.9 [place] [address] [address] Mar, [place] [address] [address] Mar, [facility] [address] [address] Mar, [facility] [address] [address] Mar, Acute pain due to injury G89.11 and Othe r chronic pain G89.29 [facility] [address] [address] Mar, [facility] [address] [address] Mar, [facility] [address] [address] Mar, [facility] [address] [address] Mar, [facility] [address] [address] Feb, Low back pain, unspecified back pain lat erality, with sciatica presence unspecified M54.5 [facility] [address] [address] Feb, [facility] [address] [address] Jan, [facility] [address] [address] Jan, Low back pain, unspecified back pain lat erality, with sciatica presence unspecified M54.5 [facility] [address] [address] Jan, Other chronic pain G89.29 and Acute pain due to injury G89.11 [facility] [address] [address] Dec, [facility] [address] [address] Nov, Essential hypertension I10 and Viral inf ection, unspecified B34.9 [facility] [address] [address] Nov, [facility] [address] [address] Nov, [facility] [address] [address] Oct, [facility] [address] [address] 14 Oct, 2014 [facility] [address] [address] Oct, [facility] [address] [address] Oct, [facility] [address] [address] Sep, [facility] [address] [address] Sep, Hypertrophy of nail 703.8 and Self-care deficit for hygiene V40.39 [place] [address] [address] Sep, [facility] [address] [address] Sep, [place] [address] [address] Aug, [facility] [address] [address] Jul, Onychomycosis 110.1 and Ingrown nail 703 .0 [place] [address] [address] Jul, Other screening mammogram V76.12 [facility] [address] [address] Jul, [facility] [address] [address] Jul, Hip pain 719.45 ; Visual disturbance 368 .9 and Conjunctivitis 372.30 [facility] [address] [place] [id number] [place] [address] June, [facility] [address] [place] [id number] [place] [address] June, [facility] [address] [place] [id number] [place] [address] June, [facility] [place] [facility] [address] [place] [id number] [place] [address] June, [facility] [address] [place] [id number] [place] [address] May, [facility] [address] [place] [id number] [place] [address] May, [facility] [address] [place] [id number] [place] [address] Apr, [facility] [place] [facility] [address] [place] [id number] [place] [address] Apr, [facility] [address] [place] [id number] [place] [address] Apr, [facility] [address] [place] [id number] [place] [address] Apr, [facility] [address] [place] [id number] [place] [address] Mar, [facility] [place] [facility] [address] [place] [id number] [place] [address] Mar, [facility] [place] [facility] [address] [place] [id number] [place] [address] Feb, [facility] [place] [facility] [address] [place] [id number] [place] [address] Feb, [facility] [place] [facility] [address] [place] [id number] [place] [address] Feb, [facility] [address] [place] [id number] [place] [address] Jan, [facility] [place] [facility] [address] [id number] [place] [address] Jan, [facility] [place] [facility] [address] [id number] [place] [address] Jan, [facility] [place] [facility] [address] [id number] [place] [address] Jan, [facility] [place] [facility] [address] [id number] [place] [address] Jan, [facility] [place] [facility] [address] [id number] [place] [address] Jan, [facility] [place] [facility] [address] [id number] [place] [address] Dec, [facility] [place] [facility] [address] [id number] [place] [address] Nov, [facility] [place] [facility] [address] [id number] [place] [address] Nov, [facility] [place] [facility] [address] [id number] [place] [address] Nov, [facility] [place] [facility] [address] [id number] [place] [address] Nov, [facility] [place] [facility] [address] [id number] [place] [address] Nov, 2013 [facility] [place] [facility] [address] [id number] [place] [address] Nov, [facility] [place] [facility] [address] [id number] [place] [address] Nov, 2013 [facility] [place] [facility] [address] [id number] [place] [address] Nov, [facility] [place] [facility] [address] [id number] [place] [address] Nov, [facility] [place] [facility] [address] [id number] [place] [address] Nov, [facility] [place] [facility] [address] [id number] [place] [address] Oct, 2013 [facility] [place] [facility] [address] [facility] [id number] [facility] [address] 25 Oct, 2013 [facility] [place] [facility] [address] [facility] [id number] [place] [address] Oct, [facility] [place] [facility] [address] [facility] [id number] [facility] [address] 24 Oct, 2013 [facility] [place] [facility] [address] [facility] [id number] [place] [address] 15 Oct, 2013 [facility] [place] [facility] [address] [facility] [id number] [place] [address] 15 Oct, 2013 [facility] [place] [facility] [address] [facility] [id number] [facility] [place] [address] Oct, [facility] [place] [facility] [address] [id number] [facility] [address] Oct, [facility] [place] [facility] [address] [id number] [place] [address] Sep, [facility] [place] [facility] [address] [facility] [id number] [facility] [address] Sep, [facility] [place] [facility] [address] [id number] [place] [address] Sep, [facility] [place] [facility] [address] [id number] [place] [address] Sep, [facility] [place] [facility] [address] [id number] [place] [address] Aug, [facility] [place] [facility] [address] [facility] [id number] [facility] [address] Aug, [facility] [place] [facility] [address] [id number] [place] [address] Aug, [facility] [place] [facility] [address] [facility] [id number] [place] [address] Aug, 2013 [facility] [place] [facility] [address] [id number] [place] [address] Aug, 2013 [facility] [place] [facility] [address] [facility] [id number] [place] [address] Aug, 2013 [facility] [place] [facility] [address] [facility] [id number] [place] [address] Aug, [facility] [place] [facility] [address] [facility] [id number] [place] [address] Aug, [facility] [place] [facility] [address] [id number] [place] [address] Jul, [facility] [place] [facility] [address] [facility] [id number] [place] [address] Jul, [facility] [place] [facility] [address] [facility] [id number] [place] [address] Jul, [facility] [place] [facility] [address] [id number] [place] [address] Jul, [facility] [place] [facility] [address] [id number] [place] [address] Jul, [facility] [address] [id number] [place] [address] Jul, [facility] [address] [id number] [place] [address] Jul, [facility] [address] [id number] [place] [address] Jul, [facility] [address] [id number] [place] [address] Jul, [facility] [address] [id number] [place] [address] Jul, [facility] [address] [facility] [id number] [place] [address] Jul, [facility] [address] [id number] [place] [address] Jul, [facility] [address] [id number] [place] [address] Jul, [facility] [address] [id number] [place] [address] Jul, [facility] [address] [id number] [place] [address] Jul, [facility] [address] [id number] [place] [address] Jul, [facility] [address] [id number] [place] [address] Jul, [facility] [address] [id number] [place] [address] June, [facility] [address] [facility] [id number] [place] [address] June, [facility] [address] [id number] [place] [address] May, [facility] [address] [id number] [place] [address] May, [facility] [address] [id number] [place] [address] May, [facility] [address] [id number] [place] [address] May, [facility] [facility] [id number] [place] [address] 17 Apr, 2013 [facility] [id number] [place] [address] 17 Apr, 2013 [facility] [id number] [place] [address] 13 Apr, 2013 [facility] [id number] [place] [address] 13 Apr, 2013 [facility] [id number] [place] [address] 11 Apr, 2013 [facility] [id number] [place] [address] 11 Apr, 2013 [facility] [id number] [place] [address] 10 Apr, 2013 [facility] [id number] [place] [address] Mar, [facility] [address] [facility] [id number] [place] [address] Mar, [facility] [id number] [place] [address] Mar, [facility] [id number] [place] [address] Mar, [facility] [id number] [place] [address] Feb, [facility] [id number] [place] [address] Feb, [facility] [id number] [place] [address] Feb, [facility] [id number] [place] [address] Feb, [facility] [id number] [place] [address] Jan, [facility] [id number] [place] [address] Jan, [facility] [id number] [place] [address] Jan, [facility] [id number] [place] [address] Jan, [facility] [id number] [place] [address] Dec, [facility] [id number] [place] [address] Dec, [facility] [id number] [place] [address] Dec, [facility] [id number] [place] [address] Dec, [facility] [id number] [place] [address] Dec, [facility] [address] [id number] [place] [address] Nov, [facility] [address] [facility] [id number] [place] [address] Nov, [facility] [id number] [place] [address] Nov, [facility] [id number] [place] [address] Nov, [facility] [address] [facility] [id number] [place] [address] Nov, [facility] [address] [facility] [id number] [place] [address] Nov, [facility] [id number] [place] [address] Nov, [facility] [id number] [place] [address] Nov, [facility] [id number] [place] [address] Oct, [facility] [address] [facility] [id number] [place] [address] Oct, [facility] [id number] [place] [address] Sep, [facility] [id number] [place] [address] Sep, [facility] [id number] [place] [address] Sep, [facility] [address] [facility] [id number] [place] [address] Sep, [facility] [id number] [place] [address] Sep, [facility] [id number] [place] [address] Sep, [facility] [id number] [place] [address] Sep, [facility] [address] [facility] [id number] [facility] [place] [address] Aug, [facility] [address] [facility] [id number] [facility] [address] Aug, [facility] [address] [id number] [place] [address] Aug, [facility] [id number] [facility] [address] Aug, [facility] [address] [facility] [id number] [place] [address] Aug, [facility] [address] [id number] [place] [address] Aug, [facility] [address] [id number] [place] [address] Aug, [facility] [address] [id number] [place] [address] Aug, [facility] [id number] [place] [address] Jul, [facility] [address] [id number] [place] [address] Jul, [facility] [id number] [place] [address] Jul, [facility] [id number] [place] [address] Jul, [facility] [address] [facility] [id number] [place] [address] June, [facility] [address] [facility] [id number] [place] [address] June, [facility] [address] [id number] [place] [address] June, [facility] [address] [id number] [place] [address] June, [facility] [id number] [facility] [place] [address] June, [facility] [id number] [place] [address] May, [facility] [id number] [place] [address] May, [facility] [address] [id number] [place] [address] May, [facility] [address] [id number] [place] [address] May, [facility] [id number] [place] [address] Apr, [facility] [address] [id number] [place] [address] Apr, [facility] [address] [id number] [place] [address] Apr, [facility] [id number] [place] [address] Apr, [facility] [id number] [place] [address] Mar, [facility] [address] [id number] [place] [address] 15 Mar, 2012 [facility] [id number] [place] [address] Mar, [facility] [id number] [place] [address] 07 Mar, 2012 [facility] [id number] [place] [address] Feb, [facility] [address] [id number] [place] [address] Jan, [facility] [id number] [place] [address] Jan, [facility] [id number] [place] [address] Jan, [facility] [address] [id number] [place] [address] Dec, [facility] [id number] [place] [address] Dec, [facility] [address] [id number] [place] [address] Dec, [facility] [address] [id number] [place] [address] Dec, [facility] [address] [id number] [place] [address] 15 Dec, 2011 [facility] [id number] [place] [address] 15 Dec, 2011 [facility] [id number] [place] [address] 14 Dec, 2011 [facility] [id number] [place] [address] Dec, [facility] [address] [id number] [place] [address] Dec, [facility] [address] [facility] [address] [id number] [place] [address] Nov, [facility] [address] [id number] [place] [address] 17 Nov, 2011 [facility] [address] [facility] [id number] [place] [address] Nov, [facility] [address] [id number] [place] [address] Nov, [facility] [id number] [place] [address] 10 Nov, 2011 [facility] [address] [id number] [place] [address] 10 Nov, 2011 [facility] [address] [id number] [place] [address] 12 Oct, 2011 [facility] [address] [id number] [place] [address] Sep, [facility] [address] [id number] [place] [address] Sep, [facility] [address] [id number] [place] [address] Aug, [facility] [address] [id number] [place] [address] Aug, [facility] [address] [id number] [place] [address] Aug, [facility] [address] [id number] [place] [address] Aug, [facility] [id number] [place] [address] Aug, [facility] [address] [id number] [place] [address] Jul, [facility] [address] [id number] [place] [address] Jul, [facility] [address] [id number] [place] [address] June, [facility] [address] [id number] [place] [address] June, [facility] [address] [id number] [place] [address] June, [facility] [address] [id number] [place] [address] June, [facility] [address] [id number] [place] [address] May, [facility] [address] [id number] [place] [address] Apr, [facility] [address] [id number] [place] [address] Apr, [facility] [address] [id number] [place] [address] Apr, [facility] [address] [facility] [id number] [place] [address] Apr, [facility] [address] [id number] [place] [address] Apr, [facility] [address] [facility] [id number] [place] [address] Mar, [facility] [address] [id number] [place] [address] Mar, [facility] [address] [id number] [place] [address] Mar, [facility] [address] [id number] [place] [address] Feb, [facility] [address] [id number] [place] [address] Feb, [facility] [address] [id number] [place] [address] Feb, [facility] [address] [facility] [id number] [place] [address] Feb, [facility] [address] [id number] [place] [address] Feb, [facility] [address] [id number] [place] [address] Feb, [facility] [address] [id number] [place] [address] Jan, [facility] [address] [id number] [place] [address] Jan, [facility] [address] [id number] [place] [address] Jan, [facility] [id number] [place] [address] Jan, [facility] [id number] [place] [address] Jan, [facility] [id number] [place] [address] Jul, [facility] [id number] [place] [address] June, [facility] [id number] [place] [address] Feb, [facility] [id number] [place] [address] Jan, [facility] [id number] [place] [address] Sep, [facility] [id number] [place] [address] Aug, [facility] [id number] [place] [address] May, [facility] [id number] [place] [address] Apr, [facility] [id number] [place] [address] Jan, [facility] [id number] [place] [address] Jan, [facility] [id number] [place] [address] Jan, [facility] [id number] [place] [address] Dec, [facility] [id number] [place] [address] Dec, [facility] [id number] [place] [address] Nov, [facility] [id number] [place] [address] Nov, [facility] [id number] [place] [address] Nov, IMMUNIZATIONS No Known Immunizations SOCIAL HISTORY [...] of small vessels; too small to stent ([facility]) 08/2013 Surgical History EGD-dilated stricture ([facility]) 09/2012 Surgical History cholecystectomy Surgical History hysterectomy Surgical History appendectomy Surgical History spine surgery-halo (neck and back surger y) 1993 Surgical History carpal tunnel release Surgical History rectocele/cystocele repair, pessary fitt ed ([facility]) 05/2013 Surgical History Suspicious lesion removal 2015 Surgical History heart cath 03/03/2019 Hospitalization History [facility] acute gastoentereritis, dehydrati on 06/06 Hospitalization History Heart Cath 2013 Hospitalization History ER visit- 09/2018
--- OUTSIDE RECORDS SUMMARY | 2019-07-19 09:13 | XMS REPORT ---
Author Author Juanita PATIÑO Organization [facility] Address [address] [place] [address] Care Team Providers Care Third Officer Name Role Phone FUENTES PATIÑO Unavailable PROBLEMS Type Condition ICD9-CM Code NKG78-IV Code Onset Dates Condition S tatus SNOMED Code Problem Chronic obstructive pulmonary disease, unspecified COPD ty pe J44.9 Active 69752896 Problem Angina pectoris, unspecified I20.9 A ctive 792553121 Problem Atherosclerotic heart diseas e of [place] coronary artery without angina pectoris I25.10 Active 5028309871283 Problem Other chronic pain G89.29 Active 8 2612389 Problem Episodic cluster headache, not intractable G44.019 Active 657295785 Problem Lumbago with sciatica, left side M54.42 Active 076288696 Problem Acute bilateral low back pain with left-sided sciatica M54.42 Active 47686917 Problem COPD exacerbation J44.1 Active 29 [id number] Problem Seasonal allergic rhinitis due to pollen J30.1 Active 86491109 Problem 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.0 Active 763571750 Problem 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 Active 053390212442 7 Problem Anxiety F41.9 Active 16010646 Problem Primary osteoarthritis of right knee M17.11 Active [id number] Problem Lumbago with sciatica, right side M54.41 Active 235706213 Problem Major depressive disorder, recurrent, mild F33.0 Active 678527159 Problem History of diabetes mellitus, type II Z86.39 Active 271371175 Problem Other chronic pain G89.29 Active 8 5433546 Problem Hypoglycemia E16.2 Active 3639886 03 ALLERGIES No Information ENCOUNTERS Encounter Location Date Diagnosis [facility] [address] [id number] [place] [address] 06 Mar, 2019 Primary osteoarthritis of right knee M17 .11 [place] [address] [address] Mar, [address] [address] Feb, Onychomycosis B35.1 ; Nail hypertrophy L 60.2 and Self-care deficit for grooming and hygiene Z74.[address] [address] Jan, Posterior right knee pain M25.561 ; Pain in left leg M79.605 ; Pain in right leg M79.604 ; Coronary artery disease of [place] artery of [place] heart with stable angina pectoris I25.118 and Encounter for immunization Z23 [address] [address] Dec, Nail hypertrophy L60.2 ; Onychomycosis B 35.1 and Self-care deficit for grooming and hygiene Z74.[address] [address] Oct, [address] [address] Sep, Other chest pain R07.[address] [address] Sep, [facility] [address] [facility] [id number] [address] [place] [address] Sep, Cellulitis of groin L03.[address] [address] Sep, Nail hypertrophy L60.2 and Self-care def icit for grooming and hygiene Z74.[address] [address] Aug, [address] [address] Aug, Hypoglycemia E16.2 ; Nonintractable epis odic headache, unspecified headache type R51 and Candidiasis of breast B37.89 [place] [address] [address] Aug, Nail hypertrophy L60.2 and Self-care def icit for grooming and hygiene Z74.1 [place] [address] [address] June, [facility] [address] [facility] [id number] [address] [place] [address] May, Bee sting, accidental or uni ntentional, initial encounter T63.441A [place] [address] [address] Apr, Primary osteoarthritis involving multipl e joints M15.0 ; Angina pectoris, unspecified I20.9 ; History of diabetes mellitus, type II Z86.39 and Chronic obstructive pulmonary disease, unspecified COPD type J44.9 [place] [address] [address] Apr, Nail hypertrophy L60.2 and Self-care def icit for grooming and hygiene Z74.1 [place] [address] [address] Mar, [facility] [place] [address] [facility] [id number] [address] [place] [address] 13 Mar, 2018 Low back pain M54.5 [place] [address] [address] Mar, [place] [address] [address] Feb, [place] [address] [address] Feb, [place] [address] [address] Feb, Encounter for Medicare annual wellness e xam Z00.00 ; Major depressive disorder, recurrent, mild F33.0 ; Chronic obstructive pulmonary disease, unspecified COPD type J44.9 ; Atherosclerotic heart disease of [place] coronary artery without angina pectoris I25.10 ; Primary osteoarthritis involving multiple joints M15.0 ; Angina pectoris, unspecified I20.9 and 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 [place] [address] [address] Jan, [place] [address] [address] Jan, [place] [address] [address] Dec, Chronic obstructive pulmonary disease, u nspecified COPD type J44.9 ; Low back pain M54.5 ; Other chronic pain G89.29 and Moderate episode of recurrent major depressive disorder F33.1 [place] [address] [address] Nov, [place] [address] [address] Nov, Encounter for immunization Z23 [place] [address] [address] Nov, Allergic rhinitis due to pollen, unspeci fied seasonality J30.1 ; Primary osteoarthritis involving multiple joints M15.0 and Encounter for immunization Z23 [place] [address] [address] Oct, Nail hypertrophy L60.2 and Self-care def icit for hygiene R46.0 [facility] [address] [facility] [id number] [address] [place] [address] Oct, Chest congestion R09.89 ; So re throat J02.9 and Cough R05 [place] [address] [address] Sep, [place] [address] [address] Aug, Low back pain M54.5 ; Other chronic pain G89.29 ; Pain in right knee M25.561 ; Pain in left knee M25.562 and Rash R21 [place] [address] [address] Aug, Nail hypertrophy L60.2 and Self-care def icit for hygiene R46.0 [place] [address] [address] June, Hypertrophy of nail L60.2 and Self-care deficit for hygiene R46.0 [place] [address] [address] June, [place] [address] [address] June, COPD exacerbation J44.1 [place] [address] [address] May, [place] [address] [address] Apr, Seasonal allergic rhinitis due to pollen J30.1 ; Encounter for immunization Z23 ; COPD exacerbation J44.1 ; Encounter for screening mammogram for breast cancer Z12.31 and Colon cancer screening Z12.11 [place] [address] [address] Apr, [place] [address] [address] Feb, Lumbago with sciatica, right side M54.41 ; Lumbago with sciatica, left side M54.42 ; Other chronic pain G89.29 ; Left hip pain M25.552 and Anxiety F41.9 [facility] [address] [facility] [id number] [address] [place] [address] Jan, History of asthma Z87.09 ; C OPD exacerbation J44.1 and Acute non-recurrent maxillary sinusitis J01.00 [place] [address] [address] Jan, Other chronic pain G89.29 and Acute bila teral low back pain with left- sided sciatica M54.42 [place] [address] [address] 14 Jan, 2017 Other chronic pain G89.29 and Acute bila teral low back pain with left- sided sciatica M54.[address] [address] Dec, Trochanteric bursitis of left hip M70.62 ; Left hip pain M25.552 and Other chronic pain G89.29 [facility] [address] [address] Nov, Local reaction to insect sti ng, accidental or unintentional, initial encounter T63.481A and Acute dermatitis L30.[address] [address] Nov, Breast cancer screening Z12.[address] [address] Nov, Acute bilateral low back pain with left- sided sciatica M54.42 and Low back pain, unspecified back pain laterality, with sciatica presence unspecified M54.5 [facility] [address] [address] Oct, Acute bilateral low back rangel n with left-sided sciatica M54.[address] [address] Sep, Low back pain, unspecified back pain lat erality, with sciatica presence unspecified M54.5 [place] [address] [address] Sep, [address] [address] Aug, Nail hypertrophy L60.2 ; Onychomycosis B 35.1 and Self-care deficit for hygiene R46.[address] [address] Aug, [address] [address] Aug, [facility] [address] [facility] [id number] [address] [place] [address] Jul, Rash R21 [facility] [address] [address] Jul, [facility] [address] [address] Jul, Low back pain, unspecified back pain lat erality, with sciatica presence unspecified M54.5 [place] [address] [address] June, Nail hypertrophy L60.2 ; Self-care defic it for hygiene R46.0 and Other chronic pain G89.29 [place] [address] [address] June, Low back pain, unspecified back pain lat erality, with sciatica presence unspecified M54.5 [place] [address] [address] May, [place] [address] [address] May, [facility] [address] [address] May, [place] [address] [address] May, Low back pain, unspecified back pain lat erality, with sciatica presence unspecified M54.5 [place] [address] [address] Apr, Breast pain, left N64.4 ; Left arm pain M79.602 and Family history of diabetes mellitus Z83.3 [place] [address] [address] 17 Apr, 2016 Low back pain, unspecified back pain lat erality, with sciatica presence unspecified M54.5 [place] [address] [address] Apr, [facility] [address] [address] 28 Mar, 2016 Onychomycosis B35.1 and Self-care defici t for hygiene R46.0 [facility] [address] [address] 17 Mar, 2016 Low back pain, unspecified back pain lat erality, with sciatica presence unspecified M54.5 [facility] [address] [facility] [id number] [address] [place] [address] 14 Mar, 2016 Pain in left shoulder M25.51 2 and Other chronic pain G89.29 [facility] [address] [address] 13 Mar, 2016 Arthralgia, unspecified joint M25.50 [place] [address] [address] Mar, [facility] [address] [address] Feb, Low back pain, unspecified back pain lat erality, with sciatica presence unspecified M54.5 [facility] [address] [address] Feb, [facility] [address] [id number] Feb, Dental examination Z01.20 [facility] [address] [id number] Feb, Dental examination Z01.20 [facility] [address] [address] Feb, Cramp of both lower extremities R25.2 [facility] [address] [address] Feb, [facility] [address] [address] Jan, Hypoxemia R09.02 ; Episodic cluster head ache, not intractable G44.019 and Cramp of both lower extremities R25.2 [place] [address] [address] Jan, [place] [address] [address] Jan, Low back pain, unspecified back pain lat erality, with sciatica presence unspecified M54.5 [place] [address] [address] Jan, Hypertrophy of nail L60.2 ; Onychomycosi s B35.1 and Self-care deficit for hygiene R46.0 [place] [address] [address] Jan, Low back pain, unspecified back pain lat erality, with sciatica presence unspecified M54.5 [place] [address] [address] Dec, Low back pain, unspecified back pain lat erality, with sciatica presence unspecified M54.5 [facility] [address] [facility] [id number] [address] [place] [address] Dec, Bug bite with infection, ini tial encounter W57.XXXA [place] [address] [address] Nov, Low back pain, unspecified back pain lat erality, with sciatica presence unspecified M54.5 [place] [address] [address] Nov, [place] [address] [address] Nov, Chronic obstructive pulmonary disease, u nspecified COPD type J44.9 [place] [address] [address] Nov, [place] [address] [address] 14 Oct, 2015 [facility] [address] [address] 08 Oct, 2015 Onychomycosis B35.1 and Ingrown nail L60 .0 [place] [address] [address] 02 Oct, 2015 Low back pain, unspecified back pain lat erality, with sciatica presence unspecified M54.5 [place] [address] [address] Sep, [place] [address] [address] Sep, Low back pain, unspecified back pain lat erality, with sciatica presence unspecified M54.5 [place] [address] [address] Aug, [place] [address] [address] Aug, Cramp of both lower extremities R25.2 ; Breast cancer screening Z12.39 ; Hyperlipidemia, unspecified hyperlipidemia type E78.5 and Atypical mole L81.9 [place] [address] [address] Aug, Chronic obstructive pulmonary disease, u nspecified COPD type J44.9 [place] [address] [address] Aug, Low back pain, unspecified back pain lat erality, with sciatica presence unspecified M54.5 [place] [address] [address] Aug, Atherosclerotic heart disease of [place] coronary artery without angina pectoris I25.10 [place] [address] [address] Jul, [place] [address] [address] Jul, [place] [address] [address] Jul, Allergic rhinitis, unspecified allergic rhinitis type J30.9 [place] [address] [address] Jul, Low back pain, unspecified back pain lat erality, with sciatica presence unspecified M54.5 [place] [address] [address] 07 Jul, 2015 Post-concussion headache G44.309 and Art hralgia, unspecified joint M25.50 [place] [address] [address] June, Chronic obstructive pulmonary disease, u nspecified COPD type J44.9 [place] [address] [address] June, [place] [address] [address] May, [place] [address] [address] May, [place] [address] [address] 30 Apr, 2015 Hip pain 719.45 and Atherosclerotic hear t disease of [place] coronary artery without angina pectoris I25.10 [place] [address] [address] Apr, History of self-care deficit Z86.59 ; Hy pertrophy of nail L60.2 and Onychomycosis B35.1 [place] [address] [address] Apr, [address] [address] Apr, Gastroenteritis K52.9 [place] [address] [address] Mar, [place] [address] [address] Mar, [facility] [address] [address] Mar, [facility] [address] [address] Mar, Acute pain due to injury G89.11 and Othe r chronic pain G89.29 [facility] [address] [address] Mar, [facility] [address] [address] Mar, [facility] [address] [address] Mar, [facility] [address] [address] Mar, [facility] [address] [address] Feb, Low back pain, unspecified back pain lat erality, with sciatica presence unspecified M54.5 [facility] [address] [address] Feb, [facility] [address] [address] Jan, [facility] [address] [address] Jan, Low back pain, unspecified back pain lat erality, with sciatica presence unspecified M54.5 [facility] [address] [address] Jan, Other chronic pain G89.29 and Acute pain due to injury G89.11 [facility] [address] [address] Dec, [facility] [address] [address] Nov, Essential hypertension I10 and Viral inf ection, unspecified B34.9 [facility] [address] [address] Nov, [facility] [address] [address] Nov, [facility] [address] [address] Oct, [facility] [address] [address] 14 Oct, 2014 [facility] [address] [address] Oct, [facility] [address] [address] Oct, [facility] [address] [address] Sep, [facility] [address] [address] Sep, Hypertrophy of nail 703.8 and Self-care deficit for hygiene V40.39 [place] [address] [address] Sep, [facility] [address] [address] Sep, [place] [address] [address] Aug, [facility] [address] [address] Jul, Onychomycosis 110.1 and Ingrown nail 703 .0 [place] [address] [address] Jul, Other screening mammogram V76.12 [facility] [address] [address] Jul, [facility] [address] [address] Jul, Hip pain 719.45 ; Visual disturbance 368 .9 and Conjunctivitis 372.30 [facility] [address] [place] [id number] [place] [address] June, [facility] [address] [place] [id number] [place] [address] June, [facility] [address] [place] [id number] [place] [address] June, [facility] [place] [facility] [address] [place] [id number] [place] [address] June, [facility] [address] [place] [id number] [place] [address] May, [facility] [address] [place] [id number] [place] [address] May, [facility] [address] [place] [id number] [place] [address] Apr, [facility] [place] [facility] [address] [place] [id number] [place] [address] Apr, [facility] [address] [place] [id number] [place] [address] Apr, [facility] [address] [place] [id number] [place] [address] Apr, [facility] [address] [place] [id number] [place] [address] Mar, [facility] [place] [facility] [address] [place] [id number] [place] [address] Mar, [facility] [place] [facility] [address] [place] [id number] [place] [address] Feb, [facility] [place] [facility] [address] [place] [id number] [place] [address] Feb, [facility] [place] [facility] [address] [place] [id number] [place] [address] Feb, [facility] [address] [place] [id number] [place] [address] Jan, [facility] [place] [facility] [address] [id number] [place] [address] Jan, [facility] [place] [facility] [address] [id number] [place] [address] Jan, [facility] [place] [facility] [address] [id number] [place] [address] Jan, [facility] [place] [facility] [address] [id number] [place] [address] Jan, [facility] [place] [facility] [address] [id number] [place] [address] Jan, [facility] [place] [facility] [address] [id number] [place] [address] Dec, [facility] [place] [facility] [address] [id number] [place] [address] Nov, [facility] [place] [facility] [address] [id number] [place] [address] Nov, [facility] [place] [facility] [address] [id number] [place] [address] Nov, [facility] [place] [facility] [address] [id number] [place] [address] Nov, [facility] [place] [facility] [address] [id number] [place] [address] Nov, 2013 [facility] [place] [facility] [address] [id number] [place] [address] Nov, [facility] [place] [facility] [address] [id number] [place] [address] Nov, 2013 [facility] [place] [facility] [address] [id number] [place] [address] Nov, [facility] [place] [facility] [address] [id number] [place] [address] Nov, [facility] [place] [address] [id number] [place] [address] Nov, [facility] [place] [facility] [address] [id number] [place] [address] Oct, 2013 [facility] [place] [facility] [address] [facility] [id number] [facility] [address] 25 Oct, 2013 [facility] [place] [facility] [address] [facility] [id number] [place] [address] Oct, [facility] [place] [facility] [address] [facility] [id number] [facility] [address] 24 Oct, 2013 [facility] [place] [facility] [address] [facility] [id number] [place] [address] 15 Oct, 2013 [facility] [place] [facility] [address] [facility] [id number] [place] [address] 15 Oct, 2013 [facility] [place] [facility] [address] [facility] [id number] [facility] [place] [address] Oct, [facility] [place] [facility] [address] [id number] [facility] [place] [address] Oct, [facility] [place] [facility] [address] [id number] [place] [address] Sep, [facility] [place] [facility] [address] [facility] [id number] [facility] [place] [address] Sep, [facility] [place] [facility] [address] [id number] [place] [address] Sep, [facility] [place] [facility] [address] [id number] [place] [address] Sep, [facility] [place] [facility] [address] [id number] [place] [address] Aug, [facility] [place] [facility] [address] [facility] [id number] [facility] [place] [address] Aug, [facility] [place] [facility] [address] [id number] [place] [address] Aug, [facility] [place] [facility] [address] [facility] [id number] [place] [address] Aug, 2013 [facility] [place] [facility] [address] [id number] [place] [address] Aug, 2013 [facility] [place] [address] [facility] [id number] [place] [address] Aug, 2013 [facility] [address] [facility] [id number] [place] [address] Aug, [facility] [address] [facility] [id number] [place] [address] Aug, [facility] [address] [id number] [place] [address] Jul, [facility] [address] [facility] [id number] [place] [address] Jul, [facility] [address] [facility] [id number] [place] [address] Jul, [facility] [address] [id number] [place] [address] Jul, [facility] [address] [id number] [place] [address] Jul, [facility] [address] [id number] [place] [address] Jul, [facility] [address] [id number] [place] [address] Jul, [facility] [address] [id number] [place] [address] Jul, [facility] [address] [id number] [place] [address] Jul, [facility] [address] [id number] [place] [address] Jul, [facility] [address] [facility] [id number] [place] [address] Jul, [facility] [address] [id number] [place] [address] Jul, [facility] [address] [id number] [place] [address] Jul, [facility] [address] [id number] [place] [address] Jul, [facility] [address] [id number] [place] [address] Jul, [facility] [address] [id number] [place] [address] Jul, [facility] [address] [id number] [place] [address] Jul, [facility] [address] [id number] [place] [address] June, [facility] [address] [facility] [id number] [place] [address] June, [facility] [address] [id number] [place] [address] May, [facility] [address] [id number] [place] [address] May, [facility] [address] [id number] [place] [address] May, [facility] [address] [id number] [place] [address] May, [facility] [address] [id number] [place] [address] 17 Apr, 2013 [facility] [address] [id number] [place] [address] 17 Apr, 2013 [facility] [address] [id number] [place] [address] 13 Apr, 2013 [facility] [address] [id number] [place] [address] 13 Apr, 2013 [facility] [address] [id number] [place] [address] 11 Apr, 2013 [facility] [address] [id number] [place] [address] 11 Apr, 2013 [facility] [address] [id number] [place] [address] 10 Apr, 2013 [facility] [address] [id number] [place] [address] Mar, [facility] [address] [facility] [id number] [place] [address] Mar, [facility] [address] [id number] [place] [address] Mar, [facility] [address] [id number] [place] [address] Mar, [facility] [address] [id number] [place] [address] Feb, [facility] [address] [id number] [place] [address] Feb, [facility] [address] [id number] [place] [address] Feb, [facility] [address] [id number] [place] [address] Feb, [facility] [address] [id number] [place] [address] Jan, [facility] [address] [id number] [place] [address] Jan, [facility] [address] [id number] [place] [address] Jan, [facility] [address] [id number] [place] [address] Jan, [facility] [address] [id number] [place] [address] Dec, [facility] [address] [id number] [place] [address] Dec, [facility] [address] [id number] [place] [address] Dec, [facility] [address] [id number] [place] [address] Dec, [facility] [address] [id number] [place] [address] Dec, [facility] [address] [id number] [place] [address] Nov, [facility] [address] [facility] [id number] [place] [address] Nov, [facility] [address] [id number] [place] [address] Nov, [facility] [address] [id number] [place] [address] Nov, [facility] [address] [facility] [id number] [place] [address] Nov, [facility] [address] [facility] [id number] [place] [address] Nov, [facility] [address] [id number] [place] [address] Nov, [facility] [address] [id number] [place] [address] Nov, [facility] [address] [id number] [place] [address] Oct, [facility] [address] [facility] [id number] [place] [address] Oct, [facility] [address] [id number] [place] [address] Sep, [facility] [address] [id number] [place] [address] Sep, [facility] [address] [id number] [place] [address] Sep, [facility] [address] [facility] [id number] [place] [address] Sep, [facility] [address] [id number] [place] [address] Sep, [facility] [address] [id number] [place] [address] Sep, [facility] [address] [id number] [place] [address] Sep, [facility] [address] [facility] [id number] [facility] [place] [address] Aug, [facility] [address] [facility] [id number] [facility] [place] [address] Aug, [facility] [address] [id number] [place] [address] Aug, [facility] [address] [id number] [facility] [place] [address] Aug, [facility] [address] [facility] [id number] [place] [address] Aug, [facility] [address] [id number] [place] [address] Aug, [facility] [address] [id number] [place] [address] Aug, [facility] [address] [id number] [place] [address] Aug, [facility] [address] [id number] [place] [address] Jul, [facility] [address] [id number] [place] [address] Jul, [facility] [address] [id number] [place] [address] Jul, [facility] [address] [id number] [place] [address] Jul, [facility] [address] [facility] [id number] [place] [address] June, [facility] [address] [facility] [id number] [place] [address] June, [facility] [address] [id number] [place] [address] June, [facility] [address] [id number] [place] [address] June, [facility] [address] [id number] [facility] [place] [address] June, [facility] [address] [id number] [place] [address] May, [facility] [address] [id number] [place] [address] May, [facility] [address] [id number] [place] [address] May, [facility] [address] [id number] [place] [address] May, [facility] [address] [id number] [place] [address] Apr, [facility] [address] [id number] [place] [address] Apr, [facility] [address] [id number] [place] [address] Apr, [facility] [address] [id number] [place] [address] Apr, [facility] [address] [id number] [place] [address] Mar, [facility] [address] [id number] [place] [address] 15 Mar, 2012 [facility] [address] [id number] [place] [address] Mar, [facility] [address] [id number] [place] [address] 07 Mar, 2012 [facility] [address] [id number] [place] [address] Feb, [facility] [address] [id number] [place] [address] Jan, [facility] [address] [id number] [place] [address] Jan, [facility] [address] [id number] [place] [address] Jan, [facility] [address] [id number] [place] [address] Dec, [facility] [address] [id number] [place] [address] Dec, [facility] [address] [id number] [place] [address] Dec, [facility] [address] [id number] [place] [address] Dec, [facility] [address] [id number] [place] [address] 15 Dec, 2011 [facility] [address] [id number] [place] [address] 15 Dec, 2011 [facility] [address] [id number] [place] [address] 14 Dec, 2011 [facility] [id number] [place] [address] Dec, [facility] [address] [id number] [place] [address] Dec, [facility] [address] [id number] [place] [address] Nov, [facility] [address] [id number] [place] [address] 17 Nov, 2011 [facility] [address] [id number] [place] [address] Nov, [facility] [address] [id number] [place] [address] Nov, [facility] [address] [id number] [place] [address] 10 Nov, 2011 [facility] [address] [id number] [place] [address] 10 Nov, 2011 [facility] [address] [id number] [place] [address] 12 Oct, 2011 [facility] [address] [id number] [place] [address] Sep, [facility] [address] [id number] [place] [address] Sep, [facility] [address] [id number] [place] [address] Aug, [facility] [address] [id number] [place] [address] Aug, [facility] [address] [id number] [place] [address] Aug, [facility] [address] [id number] [place] [address] Aug, [facility] [address] [id number] [place] [address] Aug, [facility] [address] [id number] [place] [address] Jul, [facility] [address] [id number] [place] [address] Jul, [facility] [address] [id number] [place] [address] June, [facility] [address] [id number] [place] [address] June, [facility] [address] [id number] [place] [address] June, [facility] [address] [id number] [place] [address] June, [facility] [address] [id number] [place] [address] May, [facility] [address] [id number] [place] [address] Apr, [facility] [address] [id number] [place] [address] Apr, [facility] [address] [id number] [place] [address] Apr, [facility] [address] [id number] [place] [address] Apr, [facility] [address] [id number] [place] [address] Apr, [facility] [address] [id number] [place] [address] Mar, [facility] [address] [id number] [place] [address] Mar, [facility] [address] [id number] [place] [address] Mar, [facility] [address] [id number] [place] [address] Feb, [facility] [address] [id number] [place] [address] Feb, [facility] [address] [id number] [place] [address] Feb, [facility] [address] [id number] [place] [address] Feb, [facility] [address] [id number] [place] [address] Feb, [facility] [address] [id number] [place] [address] Feb, [facility] [address] [id number] [place] [address] Jan, [facility] [address] [id number] [place] [address] Jan, [facility] [address] [id number] [place] [address] Jan, [facility] [id number] [place] [address] Jan, [facility] [address] [id number] [place] [address] Jan, [facility] [id number] [place] [address] Jul, [facility] [id number] [place] [address] June, [facility] [id number] [place] [address] Feb, [facility] [id number] [place] [address] Jan, [facility] [id number] [place] [address] Sep, [facility] [id number] [place] [address] Aug, [facility] [id number] [place] [address] May, [facility] [id number] [place] [address] Apr, [facility] [id number] [place] [address] Jan, [facility] [id number] [place] [address] Jan, [facility] [id number] [place] [address] Jan, [facility] [id number] [place] [address] Dec, [facility] [id number] [place] [address] Dec, [facility] [id number] [place] [address] Nov, [facility] [id number] [place] [address] Nov, [facility] [id number] [place] [address] Nov, IMMUNIZATIONS No Known Immunizations SOCIAL HISTORY [...] Surgical History rectocele/cystocele repair, pessary fitt ed ([facility]) 05/2013 Surgical History Suspicious lesion removal 2015 Surgical History heart cath 03/03/2019 Hospitalization History [facility] acute gastoentereritis, dehydrati on 06/06 Hospitalization History Heart Cath 2013 Hospitalization History ER visit- 09/2018
--- OUTSIDE RECORDS SUMMARY | 2019-07-19 09:14 | XMS REPORT ---
Author Author Juantia PATIÑO Organization [facility] [place] Address [address] [place] [address] Care Team Providers Care Card Clothier Name Role Phone FUENTES PATIÑO Unavailable PROBLEMS Type Condition ICD9-CM Code UOU23-DI Code Onset Dates Condition S tatus SNOMED Code Problem Chronic obstructive pulmonary disease, unspecified COPD ty pe J44.9 Active 79409606 Problem Angina pectoris, unspecified I20.9 A ctive 055169286 Problem Atherosclerotic heart diseas e of [place] coronary artery without angina pectoris I25.10 Active 0697769712263 Problem Other chronic pain G89.29 Active 8 5191693 Problem Episodic cluster headache, not intractable G44.019 Active 112429986 Problem Lumbago with sciatica, left side M54.42 Active 762390304 Problem Acute bilateral low back pain with left-sided sciatica M54.42 Active 46653031 Problem COPD exacerbation J44.1 Active 29 [id number] Problem Seasonal allergic rhinitis due to pollen J30.1 Active 76368760 Problem 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.0 Active 796399649 Problem 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 Active [id number] 7 Problem Anxiety F41.9 Active 63201496 Problem Primary osteoarthritis of right knee M17.11 Active [id number] Problem Lumbago with sciatica, right side M54.41 Active 288779345 Problem Major depressive disorder, recurrent, mild F33.0 Active 009408086 Problem History of diabetes mellitus, type II Z86.39 Active 451481949 Problem Other chronic pain G89.29 Active 8 1573215 Problem Hypoglycemia E16.2 Active 8918625 03 ALLERGIES No Information ENCOUNTERS Encounter Location Date Diagnosis [facility] [place] [address] [id number] [place] [address] 06 Mar, 2019 Primary osteoarthritis of right knee M17 .11 [place] [address] [address] Mar, [address] [address] Feb, Onychomycosis B35.1 ; Nail hypertrophy L 60.2 and Self-care deficit for grooming and hygiene Z74.[address] [address] Jan, Posterior right knee pain M25.561 ; Pain in left leg M79.605 ; Pain in right leg M79.604 ; Coronary artery disease of [place] artery of [place] heart with stable angina pectoris I25.118 and Encounter for immunization Z23 [address] [address] Dec, Nail hypertrophy L60.2 ; Onychomycosis B 35.1 and Self-care deficit for grooming and hygiene Z74.[address] [address] Oct, [address] [address] Sep, Other chest pain R07.[address] [address] Sep, [facility] [address] [facility] [id number] [address] [place] [address] Sep, Cellulitis of groin L03.[address] [address] Sep, Nail hypertrophy L60.2 and Self-care def icit for grooming and hygiene Z74.[address] [address] Aug, [address] [address] Aug, Hypoglycemia E16.2 ; Nonintractable epis odic headache, unspecified headache type R51 and Candidiasis of breast B37.89 [place] [address] [address] Aug, Nail hypertrophy L60.2 and Self-care def icit for grooming and hygiene Z74.1 [place] [address] [address] June, [facility] [address] [facility] [id number] [address] [place] [address] May, Bee sting, accidental or uni ntentional, initial encounter T63.441A [place] [address] [address] Apr, Primary osteoarthritis involving multipl e joints M15.0 ; Angina pectoris, unspecified I20.9 ; History of diabetes mellitus, type II Z86.39 and Chronic obstructive pulmonary disease, unspecified COPD type J44.9 [place] [address] [address] Apr, Nail hypertrophy L60.2 and Self-care def icit for grooming and hygiene Z74.1 [place] [address] [address] Mar, [facility] [place] [address] [facility] [id number] [address] [place] [address] 13 Mar, 2018 Low back pain M54.5 [place] [address] [address] Mar, [place] [address] [address] Feb, [place] [address] [address] Feb, [place] [address] [address] Feb, Encounter for Medicare annual wellness e xam Z00.00 ; Major depressive disorder, recurrent, mild F33.0 ; Chronic obstructive pulmonary disease, unspecified COPD type J44.9 ; Atherosclerotic heart disease of [place] coronary artery without angina pectoris I25.10 ; Primary osteoarthritis involving multiple joints M15.0 ; Angina pectoris, unspecified I20.9 and 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 [place] [address] [address] Jan, [place] [address] [address] Jan, [place] [address] [address] Dec, Chronic obstructive pulmonary disease, u nspecified COPD type J44.9 ; Low back pain M54.5 ; Other chronic pain G89.29 and Moderate episode of recurrent major depressive disorder F33.1 [place] [address] [address] Nov, [place] [address] [address] Nov, Encounter for immunization Z23 [place] [address] [address] Nov, Allergic rhinitis due to pollen, unspeci fied seasonality J30.1 ; Primary osteoarthritis involving multiple joints M15.0 and Encounter for immunization Z23 [place] [address] [address] Oct, Nail hypertrophy L60.2 and Self-care def icit for hygiene R46.0 [facility] [address] [facility] [id number] [address] [place] [address] Oct, Chest congestion R09.89 ; So re throat J02.9 and Cough R05 [place] [address] [address] Sep, [place] [address] [address] Aug, Low back pain M54.5 ; Other chronic pain G89.29 ; Pain in right knee M25.561 ; Pain in left knee M25.562 and Rash R21 [place] [address] [address] Aug, Nail hypertrophy L60.2 and Self-care def icit for hygiene R46.0 [place] [address] [address] June, Hypertrophy of nail L60.2 and Self-care deficit for hygiene R46.0 [place] [address] [address] June, [place] [address] [address] June, COPD exacerbation J44.1 [place] [address] [address] May, [place] [address] [address] Apr, Seasonal allergic rhinitis due to pollen J30.1 ; Encounter for immunization Z23 ; COPD exacerbation J44.1 ; Encounter for screening mammogram for breast cancer Z12.31 and Colon cancer screening Z12.11 [place] [address] [address] Apr, [place] [address] [address] Feb, Lumbago with sciatica, right side M54.41 ; Lumbago with sciatica, left side M54.42 ; Other chronic pain G89.29 ; Left hip pain M25.552 and Anxiety F41.9 [facility] [address] [facility] [id number] [address] [place] [address] Jan, History of asthma Z87.09 ; C OPD exacerbation J44.1 and Acute non-recurrent maxillary sinusitis J01.00 [place] [address] [address] Jan, Other chronic pain G89.29 and Acute bila teral low back pain with left- sided sciatica M54.42 [place] [address] [address] 14 Jan, 2017 Other chronic pain G89.29 and Acute bila teral low back pain with left- sided sciatica M54.[address] [address] Dec, Trochanteric bursitis of left hip M70.62 ; Left hip pain M25.552 and Other chronic pain G89.29 [facility] [address] [address] Nov, Local reaction to insect sti ng, accidental or unintentional, initial encounter T63.481A and Acute dermatitis L30.[address] [address] Nov, Breast cancer screening Z12.[address] [address] Nov, Acute bilateral low back pain with left- sided sciatica M54.42 and Low back pain, unspecified back pain laterality, with sciatica presence unspecified M54.5 [facility] [address] [address] Oct, Acute bilateral low back rangel n with left-sided sciatica M54.[address] [address] Sep, Low back pain, unspecified back pain lat erality, with sciatica presence unspecified M54.5 [place] [address] [address] Sep, [address] [address] Aug, Nail hypertrophy L60.2 ; Onychomycosis B 35.1 and Self-care deficit for hygiene R46.[address] [address] Aug, [address] [address] Aug, [facility] [address] [facility] [id number] [address] [place] [address] Jul, Rash R21 [facility] [place] [address] [address] Jul, [facility] [place] [address] [address] Jul, Low back pain, unspecified back pain lat erality, with sciatica presence unspecified M54.5 [place] [address] [address] June, Nail hypertrophy L60.2 ; Self-care defic it for hygiene R46.0 and Other chronic pain G89.29 [place] [address] [address] June, Low back pain, unspecified back pain lat erality, with sciatica presence unspecified M54.5 [place] [address] [address] May, [place] [address] [address] May, [facility] [place] [address] [address] May, [place] [address] [address] May, Low back pain, unspecified back pain lat erality, with sciatica presence unspecified M54.5 [place] [address] [address] Apr, Breast pain, left N64.4 ; Left arm pain M79.602 and Family history of diabetes mellitus Z83.3 [place] [address] [address] 17 Apr, 2016 Low back pain, unspecified back pain lat erality, with sciatica presence unspecified M54.5 [place] [address] [address] Apr, [facility] [place] [address] [address] 28 Mar, 2016 Onychomycosis B35.1 and Self-care defici t for hygiene R46.0 [facility] [place] [address] [address] 17 Mar, 2016 Low back pain, unspecified back pain lat erality, with sciatica presence unspecified M54.5 [facility] [address] [facility] [id number] [address] [place] [address] 14 Mar, 2016 Pain in left shoulder M25.51 2 and Other chronic pain G89.29 [facility] [place] [address] [address] 13 Mar, 2016 Arthralgia, unspecified joint M25.50 [place] [address] [address] Mar, [facility] [place] [address] [address] Feb, Low back pain, unspecified back pain lat erality, with sciatica presence unspecified M54.5 [facility] [place] [address] [address] Feb, [facility] [address] [id number] Feb, Dental examination Z01.20 [facility] [address] [id number] Feb, Dental examination Z01.20 [facility] [place] [address] [address] Feb, Cramp of both lower extremities R25.2 [facility] [place] [address] [address] Feb, [facility] [place] [address] [address] Jan, Hypoxemia R09.02 ; Episodic cluster head ache, not intractable G44.019 and Cramp of both lower extremities R25.2 [place] [address] [address] Jan, [place] [address] [address] Jan, Low back pain, unspecified back pain lat erality, with sciatica presence unspecified M54.5 [place] [address] [address] Jan, Hypertrophy of nail L60.2 ; Onychomycosi s B35.1 and Self-care deficit for hygiene R46.0 [place] [address] [address] Jan, Low back pain, unspecified back pain lat erality, with sciatica presence unspecified M54.5 [place] [address] [address] Dec, Low back pain, unspecified back pain lat erality, with sciatica presence unspecified M54.5 [facility] [address] [facility] [id number] [address] [place] [address] Dec, Bug bite with infection, ini tial encounter W57.XXXA [place] [address] [address] Nov, Low back pain, unspecified back pain lat erality, with sciatica presence unspecified M54.5 [place] [address] [address] Nov, [place] [address] [address] Nov, Chronic obstructive pulmonary disease, u nspecified COPD type J44.9 [place] [address] [address] Nov, [place] [address] [address] 14 Oct, 2015 [facility] [place] [address] [address] 08 Oct, 2015 Onychomycosis B35.1 and Ingrown nail L60 .0 [place] [address] [address] 02 Oct, 2015 Low back pain, unspecified back pain lat erality, with sciatica presence unspecified M54.5 [place] [address] [address] Sep, [place] [address] [address] Sep, Low back pain, unspecified back pain lat erality, with sciatica presence unspecified M54.5 [place] [address] [address] Aug, [place] [address] [address] Aug, Cramp of both lower extremities R25.2 ; Breast cancer screening Z12.39 ; Hyperlipidemia, unspecified hyperlipidemia type E78.5 and Atypical mole L81.9 [place] [address] [address] Aug, Chronic obstructive pulmonary disease, u nspecified COPD type J44.9 [place] [address] [address] Aug, Low back pain, unspecified back pain lat erality, with sciatica presence unspecified M54.5 [place] [address] [address] Aug, Atherosclerotic heart disease of [place] coronary artery without angina pectoris I25.10 [place] [address] [address] Jul, [place] [address] [address] Jul, [place] [address] [address] Jul, Allergic rhinitis, unspecified allergic rhinitis type J30.9 [place] [address] [address] Jul, Low back pain, unspecified back pain lat erality, with sciatica presence unspecified M54.5 [place] [address] [address] 07 Jul, 2015 Post-concussion headache G44.309 and Art hralgia, unspecified joint M25.50 [place] [address] [address] June, Chronic obstructive pulmonary disease, u nspecified COPD type J44.9 [place] [address] [address] June, [place] [address] [address] May, [place] [address] [address] May, [place] [address] [address] 30 Apr, 2015 Hip pain 719.45 and Atherosclerotic hear t disease of [place] coronary artery without angina pectoris I25.10 [place] [address] [address] Apr, History of self-care deficit Z86.59 ; Hy pertrophy of nail L60.2 and Onychomycosis B35.1 [place] [address] [address] Apr, [address] [address] Apr, Gastroenteritis K52.9 [place] [address] [address] Mar, [place] [address] [address] Mar, [facility] [place] [address] [address] Mar, [facility] [place] [address] [address] Mar, Acute pain due to injury G89.11 and Othe r chronic pain G89.29 [facility] [place] [address] [address] Mar, [facility] [place] [address] [address] Mar, [facility] [place] [address] [address] Mar, [facility] [place] [address] [address] Mar, [facility] [place] [address] [address] Feb, Low back pain, unspecified back pain lat erality, with sciatica presence unspecified M54.5 [facility] [place] [address] [address] Feb, [facility] [place] [address] [address] Jan, [facility] [place] [address] [address] Jan, Low back pain, unspecified back pain lat erality, with sciatica presence unspecified M54.5 [facility] [place] [address] [address] Jan, Other chronic pain G89.29 and Acute pain due to injury G89.11 [facility] [place] [address] [address] Dec, [facility] [place] [address] [address] Nov, Essential hypertension I10 and Viral inf ection, unspecified B34.9 [facility] [place] [address] [address] Nov, [facility] [place] [address] [address] Nov, [facility] [place] [address] [address] Oct, [facility] [place] [address] [address] 14 Oct, 2014 [facility] [place] [address] [address] Oct, [facility] [place] [address] [address] Oct, [facility] [place] [address] [address] Sep, [facility] [place] [address] [address] Sep, Hypertrophy of nail 703.8 and Self-care deficit for hygiene V40.39 [place] [address] [address] Sep, [facility] [place] [address] [address] Sep, [place] [address] [address] Aug, [facility] [place] [address] [address] Jul, Onychomycosis 110.1 and Ingrown nail 703 .0 [place] [address] [address] Jul, Other screening mammogram V76.12 [facility] [place] [address] [address] Jul, [facility] [place] [address] [address] Jul, Hip pain 719.45 ; Visual disturbance 368 .9 and Conjunctivitis 372.30 [facility] [address] [place] [id number] [place] [address] June, [facility] [address] [place] [id number] [place] [address] June, [facility] [address] [place] [id number] [place] [address] June, [facility] [place] [facility] [address] [place] [id number] [place] [address] June, [facility] [address] [place] [id number] [place] [address] May, [facility] [address] [place] [id number] [place] [address] May, [facility] [address] [place] [id number] [place] [address] Apr, [facility] [place] [facility] [address] [place] [id number] [place] [address] Apr, [facility] [address] [place] [id number] [place] [address] Apr, [facility] [address] [place] [id number] [place] [address] Apr, [facility] [address] [place] [id number] [place] [address] Mar, [facility] [place] [facility] [address] [place] [id number] [place] [address] Mar, [facility] [place] [facility] [address] [place] [id number] [place] [address] Feb, [facility] [place] [facility] [address] [place] [id number] [place] [address] Feb, [facility] [place] [facility] [address] [place] [id number] [place] [address] Feb, [facility] [address] [place] [id number] [place] [address] Jan, [facility] [place] [facility] [address] [id number] [place] [address] Jan, [facility] [place] [facility] [address] [id number] [place] [address] Jan, [facility] [place] [facility] [address] [id number] [place] [address] Jan, [facility] [place] [facility] [address] [id number] [place] [address] Jan, [facility] [place] [facility] [address] [id number] [place] [address] Jan, [facility] [place] [facility] [address] [id number] [place] [address] Dec, [facility] [place] [facility] [address] [id number] [place] [address] Nov, [facility] [place] [facility] [address] [id number] [place] [address] Nov, [facility] [place] [facility] [address] [id number] [place] [address] Nov, [facility] [place] [facility] [address] [id number] [place] [address] Nov, [facility] [place] [facility] [address] [id number] [place] [address] Nov, 2013 [facility] [place] [facility] [address] [id number] [place] [address] Nov, [facility] [place] [facility] [address] [id number] [place] [address] Nov, 2013 [facility] [place] [facility] [address] [id number] [place] [address] Nov, [facility] [place] [facility] [address] [id number] [place] [address] Nov, [facility] [place] [facility] [address] [id number] [place] [address] Nov, [facility] [place] [facility] [address] [id number] [place] [address] Oct, 2013 [facility] [place] [facility] [address] [facility] [id number] [facility] [place] [address] 25 Oct, 2013 [facility] [place] [facility] [address] [facility] [id number] [place] [address] Oct, [facility] [place] [facility] [address] [facility] [id number] [facility] [place] [address] 24 Oct, 2013 [facility] [place] [facility] [address] [facility] [id number] [place] [address] 15 Oct, 2013 [facility] [place] [facility] [address] [facility] [id number] [place] [address] 15 Oct, 2013 [facility] [place] [facility] [address] [facility] [id number] [facility] [place] [address] Oct, [facility] [place] [facility] [address] [id number] [facility] [place] [address] Oct, [facility] [place] [facility] [address] [id number] [place] [address] Sep, [facility] [place] [facility] [address] [facility] [id number] [facility] [place] [address] Sep, [facility] [place] [facility] [address] [id number] [place] [address] Sep, [facility] [place] [facility] [address] [id number] [place] [address] Sep, [facility] [place] [facility] [address] [id number] [place] [address] Aug, [facility] [place] [facility] [address] [facility] [id number] [facility] [place] [address] Aug, [facility] [place] [facility] [address] [id number] [place] [address] Aug, [facility] [place] [facility] [address] [facility] [id number] [place] [address] Aug, 2013 [facility] [place] [facility] [address] [id number] [place] [address] Aug, 2013 [facility] [place] [facility] [address] [facility] [id number] [place] [address] Aug, 2013 [facility] [place] [facility] [address] [facility] [id number] [place] [address] Aug, [facility] [place] [facility] [address] [facility] [id number] [place] [address] Aug, [facility] [place] [facility] [address] [id number] [place] [address] Jul, [facility] [place] [facility] [address] [facility] [id number] [place] [address] Jul, [facility] [place] [facility] [address] [facility] [id number] [place] [address] Jul, [facility] [place] [facility] [address] [id number] [place] [address] Jul, [facility] [place] [facility] [address] [id number] [place] [address] Jul, [facility] [place] [facility] [address] [id number] [place] [address] Jul, [facility] [place] [facility] [address] [id number] [place] [address] Jul, [facility] [place] [facility] [address] [id number] [place] [address] Jul, [facility] [place] [facility] [address] [id number] [place] [address] Jul, [facility] [place] [facility] [address] [id number] [place] [address] Jul, [facility] [place] [facility] [address] [facility] [id number] [place] [address] Jul, [facility] [place] [facility] [address] [id number] [place] [address] Jul, [facility] [address] [facility] [id number] [place] [address] Jul, [facility] [address] [facility] [id number] [place] [address] Jul, [facility] [address] [id number] [place] [address] Jul, [facility] [address] [id number] [place] [address] Jul, [facility] [address] [id number] [place] [address] Jul, [facility] [address] [id number] [place] [address] June, [facility] [address] [facility] [id number] [place] [address] June, [facility] [address] [id number] [place] [address] May, [facility] [address] [id number] [place] [address] May, [facility] [address] [id number] [place] [address] May, [facility] [address] [id number] [place] [address] May, [facility] [address] [id number] [place] [address] 17 Apr, 2013 [facility] [address] [id number] [place] [address] 17 Apr, 2013 [facility] [address] [id number] [place] [address] 13 Apr, 2013 [facility] [address] [id number] [place] [address] 13 Apr, 2013 [facility] [address] [id number] [place] [address] 11 Apr, 2013 [facility] [address] [id number] [place] [address] 11 Apr, 2013 [facility] [address] [id number] [place] [address] 10 Apr, 2013 [facility] [address] [id number] [place] [address] Mar, [facility] [address] [facility] [id number] [place] [address] Mar, [facility] [address] [id number] [place] [address] Mar, [facility] [address] [id number] [place] [address] Mar, [facility] [address] [id number] [place] [address] Feb, [facility] [address] [id number] [place] [address] Feb, [facility] [address] [id number] [place] [address] Feb, [facility] [address] [id number] [place] [address] Feb, [facility] [address] [id number] [place] [address] Jan, [facility] [address] [id number] [place] [address] Jan, [facility] [address] [id number] [place] [address] Jan, [facility] [address] [id number] [place] [address] Jan, [facility] [address] [id number] [place] [address] Dec, [facility] [address] [id number] [place] [address] Dec, [facility] [address] [id number] [place] [address] Dec, [facility] [address] [facility] [id number] [place] [address] Dec, [facility] [address] [facility] [id number] [place] [address] Dec, [facility] [address] [id number] [place] [address] Nov, [facility] [address] [facility] [id number] [place] [address] Nov, [facility] [address] [id number] [place] [address] Nov, [facility] [address] [id number] [place] [address] Nov, [facility] [address] [facility] [id number] [place] [address] Nov, [facility] [address] [facility] [id number] [place] [address] Nov, [facility] [address] [id number] [place] [address] Nov, [facility] [address] [id number] [place] [address] Nov, [facility] [address] [id number] [place] [address] Oct, [facility] [address] [facility] [id number] [place] [address] Oct, [facility] [address] [id number] [place] [address] Sep, [facility] [address] [id number] [place] [address] Sep, [facility] [address] [id number] [place] [address] Sep, [facility] [address] [facility] [id number] [place] [address] Sep, [facility] [address] [id number] [place] [address] Sep, [facility] [address] [id number] [place] [address] Sep, [facility] [address] [id number] [place] [address] Sep, [facility] [address] [facility] [id number] [facility] [place] [address] Aug, [facility] [address] [facility] [id number] [facility] [place] [address] Aug, [facility] [address] [id number] [place] [address] Aug, [facility] [address] [id number] [facility] [place] [address] Aug, [facility] [address] [facility] [id number] [place] [address] Aug, [facility] [address] [id number] [place] [address] Aug, [facility] [address] [id number] [place] [address] Aug, [facility] [address] [id number] [place] [address] Aug, [facility] [address] [id number] [place] [address] Jul, [facility] [address] [id number] [place] [address] Jul, [facility] [address] [id number] [place] [address] Jul, [facility] [address] [id number] [place] [address] Jul, [facility] [address] [facility] [id number] [place] [address] June, [facility] [address] [facility] [id number] [place] [address] June, [facility] [address] [id number] [place] [address] June, [facility] [address] [id number] [place] [address] June, [facility] [address] [id number] [facility] [place] [address] June, [facility] [address] [id number] [place] [address] May, [facility] [address] [id number] [place] [address] May, [facility] [address] [id number] [place] [address] May, [facility] [address] [id number] [place] [address] May, [facility] [address] [id number] [place] [address] Apr, [facility] [address] [id number] [place] [address] Apr, [facility] [address] [id number] [place] [address] Apr, [facility] [address] [id number] [place] [address] Apr, [facility] [address] [id number] [place] [address] Mar, [facility] [address] [id number] [place] [address] 15 Mar, 2012 [facility] [address] [id number] [place] [address] Mar, [facility] [address] [id number] [place] [address] 07 Mar, 2012 [facility] [address] [id number] [place] [address] Feb, [facility] [address] [id number] [place] [address] Jan, [facility] [address] [id number] [place] [address] Jan, [facility] [address] [id number] [place] [address] Jan, [facility] [address] [id number] [place] [address] Dec, [facility] [address] [id number] [place] [address] Dec, [facility] [address] [id number] [place] [address] Dec, [facility] [address] [id number] [place] [address] Dec, [facility] [address] [id number] [place] [address] 15 Dec, 2011 [facility] [address] [id number] [place] [address] 15 Dec, 2011 [facility] [address] [id number] [place] [address] 14 Dec, 2011 [facility] [id number] [place] [address] Dec, [facility] [address] [id number] [place] [address] Dec, [facility] [address] [id number] [place] [address] Nov, [facility] [address] [id number] [place] [address] 17 Nov, 2011 [facility] [address] [id number] [place] [address] Nov, [facility] [address] [id number] [place] [address] Nov, [facility] [address] [id number] [place] [address] 10 Nov, 2011 [facility] [address] [id number] [place] [address] 10 Nov, 2011 [facility] [address] [id number] [place] [address] 12 Oct, 2011 [facility] [address] [id number] [place] [address] Sep, [facility] [address] [id number] [place] [address] Sep, [facility] [address] [id number] [place] [address] Aug, [facility] [address] [id number] [place] [address] Aug, [facility] [address] [id number] [place] [address] Aug, [facility] [address] [id number] [place] [address] Aug, [facility] [address] [id number] [place] [address] Aug, [facility] [address] [id number] [place] [address] Jul, [facility] [address] [id number] [place] [address] Jul, [facility] [address] [id number] [place] [address] June, [facility] [address] [id number] [place] [address] June, [facility] [address] [id number] [place] [address] June, [facility] [address] [id number] [place] [address] June, [facility] [address] [id number] [place] [address] May, [facility] [address] [id number] [place] [address] Apr, [facility] [address] [id number] [place] [address] Apr, [facility] [address] [id number] [place] [address] Apr, [facility] [address] [id number] [place] [address] Apr, [facility] [address] [id number] [place] [address] Apr, [facility] [address] [id number] [place] [address] Mar, [facility] [address] [id number] [place] [address] Mar, [facility] [address] [id number] [place] [address] Mar, [facility] [address] [id number] [place] [address] Feb, [facility] [address] [id number] [place] [address] Feb, [facility] [address] [id number] [place] [address] Feb, [facility] [address] [id number] [place] [address] Feb, [facility] [address] [id number] [place] [address] Feb, [facility] [address] [id number] [place] [address] Feb, [facility] [address] [id number] [place] [address] Jan, [facility] [address] [id number] [place] [address] Jan, [facility] [address] [id number] [place] [address] Jan, [facility] [id number] [place] [address] Jan, [facility] [address] [id number] [place] [address] Jan, [facility] [id number] [place] [address] Jul, [facility] [place] [id number] [place] [address] June, [facility] [place] [id number] [place] [address] Feb, [facility] [place] [id number] [place] [address] Jan, [facility] [place] [id number] [place] [address] Sep, [facility] [place] [id number] [place] [address] Aug, [facility] [place] [id number] [place] [address] May, [facility] [place] [id number] [place] [address] Apr, [facility] [place] [id number] [place] [address] Jan, [facility] [place] [id number] [place] [address] Jan, [facility] [place] [id number] [place] [address] Jan, [facility] [place] [id number] [place] [address] Dec, [facility] [place] [id number] [place] [address] Dec, [facility] [place] [id number] [place] [address] Nov, [facility] [place] [id number] [place] [address] Nov, [facility] [place] [id number] [place] [address] Nov, IMMUNIZATIONS No Known Immunizations SOCIAL HISTORY [...] Surgical History rectocele/cystocele repair, pessary fitt ed ([facility]) 05/2013 Surgical History Suspicious lesion removal 2015 Surgical History heart cath 03/03/2019 Hospitalization History [facility] acute gastoentereritis, dehydrati on 06/06 Hospitalization History Heart Cath 2013 Hospitalization History ER visit- 09/2018
[2019-07-19 09:22] VITALS: BP 147/84
--- OUTSIDE RECORDS SUMMARY | 2019-07-19 09:27 | XMS REPORT ---
Author Author Juanita PATIÑO Organization [facility] Address [address] [place] [address] Care Team Providers Care Yield Clerk Name Role Phone FUENTES PATIÑO Unavailable PROBLEMS Type Condition ICD9-CM Code CSW66-HP Code Onset Dates Condition S tatus SNOMED Code Problem Episodic cluster headache, not intractable G44.019 Active 951068233 Problem Angina pectoris, unspecified I20.9 A ctive 215358948 Problem Acute bilateral low back pain with left-sided sciatica M54.42 Active 22939796 Problem Other chronic pain G89.29 Active 8 7566573 Problem Lumbago with sciatica, right side M54.41 Active 828793929 Problem Lumbago with sciatica, left side M54.42 Active 939857781 Problem COPD exacerbation J44.1 Active 29 [id number] Problem Anxiety F41.9 Active 45535042 Problem Major depressive disorder, recurrent, mild F33.0 Active 846640555 Problem History of diabetes mellitus, type II Z86.39 Active 901415177 Problem Other chronic pain G89.29 Active 8 1956821 Problem Hyperlipidemia, unspecified hyperlipidemia type E7 8.5 Active 52225493 Problem 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.0 Active 121141259 Problem Chronic obstructive pulmonary disease, unspecified COPD ty pe J44.9 Active 65000129 Problem Essential hypertension I10 Active 25544306 Problem Seasonal allergic rhinitis due to pollen J30.1 Active 81107381 Problem 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 Active 7365282455275 Problem Hypoglycemia E16.2 Active 5719802 03 Problem 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 Active 748622331187 7 Problem Primary osteoarthritis of right knee M17.11 Active 383952209232861 Problem Dysphagia, unspecified type R13.10 Ac tive 20460125 ALLERGIES No Information ENCOUNTERS Encounter Location Date Diagnosis [facility] [id number] [place] [address] Jul, [facility] [address] [address] June, Non-recurrent acute suppurat jessica otitis media of right ear without spontaneous rupture of tympanic membrane H66.001 [place] [address] [address] May, Nail hypertrophy L60.2 ; 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 and Self-care deficit for grooming and hygiene Z74.1 [place] [address] [address] May, [place] [address] [address] Apr, Dysphagia, unspecified type R13.10 ; 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 and Breast cancer screening by mammogram Z12.31 [place] [address] [place] [id number] [place] [address] Apr, Low back pain, unspecified b ack pain laterality, with sciatica presence unspecified M54.5 ; Onychomycosis B35.1 ; Other chronic pain G89.29 ; Chronic obstructive pulmonary disease, unspecified COPD type J44.9 ; Essential hypertension I10 ; Family history of diabetes mellitus Z83.3 ; Hyperlipidemia, unspecified hyperlipidemia type E78.5 ; Anxiety F41.9 and 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 [facility] [address] [place] [id number] [place] [address] Mar, Primary osteoarthritis of ri ght knee M17.11 [place] [address] [address] Mar, [place] [address] [place] [id number] [place] [address] Feb, Onychomycosis B35.1 ; Nail h ypertrophy L60.2 and Self-care deficit for grooming and hygiene Z74.1 [place] [address] [facility] [id number] [address] [place] [address] Jan, Posterior right knee pain M2 5.561 ; Pain in left leg M79.605 ; Pain in right leg M79.604 ; 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 and Encounter for immunization Z23 [place] [address] [address] [facility] [id number] [address] [place] [address] Dec, Nail hypertrophy L60.2 ; Lakshmi chomycosis B35.1 and Self-care deficit for grooming and hygiene Z74.1 [place] [address] [address] [facility] [id number] [address] [place] [address] Oct, [place] [address] [place] [id number] [place] [address] Sep, Other chest pain R07.89 [place] [address] [place] [id number] [place] [address] Sep, [facility] [address] [facility] [id number] [address] [place] [address] Sep, Cellulitis of groin L03.314 [place] [address] [address] [facility] [id number] [address] [place] [address] Sep, Nail hypertrophy L60.2 and S elf-care deficit for grooming and hygiene Z74.1 [place] [address] [address] [facility] [id number] [address] [place] [address] Aug, [place] [address] [address] [facility] [id number] [address] [place] [address] Aug, Hypoglycemia E16.2 ; Nonintr actable episodic headache, unspecified headache type R51 and Candidiasis of breast B37.89 [place] [address] [address] [facility] [id number] [address] [place] [address] Aug, Nail hypertrophy L60.2 and S elf-care deficit for grooming and hygiene Z74.1 [facility] [address] [facility] [id number] [address] [place] [address] June, [facility] [address] [facility] [id number] [address] [place] [address] May, Bee sting, accidental or uni ntentional, initial encounter T63.441A [place] [address] [place] [id number] [place] [address] Apr, Primary osteoarthritis invol ving multiple joints M15.0 ; Angina pectoris, unspecified I20.9 ; History of diabetes mellitus, type II Z86.39 and Chronic obstructive pulmonary disease, unspecified COPD type J44.9 [place] [address] [place] [id number] [place] [address] Apr, Nail hypertrophy L60.2 and S elf-care deficit for grooming and hygiene Z74.1 [facility] [address] [place] [id number] [place] [address] Mar, [facility] [address] [place] [id number] [place] [address] Mar, Low back pain M54.5 [place] [address] [place] [id number] [place] [address] Mar, [facility] [address] [place] [id number] [place] [address] Feb, [place] [address] [place] [id number] [place] [phone] Feb, [place] [address] [place] [id number] [place] [address] Feb, Encounter for Medicare annua l wellness exam Z00.00 ; Major depressive disorder, recurrent, mild F33.0 ; Chronic obstructive pulmonary disease, unspecified COPD type J44.9 ; 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 ; Primary osteoarthritis involving multiple joints M15.0 ; Angina pectoris, unspecified I20.9 and 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 [facility] [address] [place] [id number] [place] [address] Jan, [facility] [address] [place] [id number] [place] [address] Jan, [facility] [address] [place] [id number] [place] [address] Dec, Chronic obstructive pulmonar y disease, unspecified COPD type J44.9 ; Low back pain M54.5 ; Other chronic pain G89.29 and Moderate episode of recurrent major depressive disorder F33.1 [place] [address] [place] [id number] [place] [phone] Nov, [place] [address] [place] [id number] [place] [address] Nov, Encounter for immunization Z 23 [place] [address] [place] [id number] [place] [address] Nov, Allergic rhinitis due to ned iona, unspecified seasonality J30.1 ; Primary osteoarthritis involving multiple joints M15.0 and Encounter for immunization Z23 [facility] [address] [place] [id number] [place] [address] Oct, Nail hypertrophy L60.2 and S elf-care deficit for hygiene R46.0 [facility] [address] [place] [id number] [place] [address] Oct, Chest congestion R09.89 ; So re throat J02.9 and Cough R05 [place] [address] [place] [id number] [place] [address] Sep, [place] [address] [place] [id number] [place] [address] Aug, Low back pain M54.5 ; Other chronic pain G89.29 ; Pain in right knee M25.561 ; Pain in left knee M25.562 and Rash R21 [place] [address] [place] [id number] [place] [address] Aug, Nail hypertrophy L60.2 and S elf-care deficit for hygiene R46.0 [place] [address] [address] June, Hypertrophy of nail L60.2 an d Self-care deficit for hygiene R46.0 [place] [address] [address] June, [place] [address] [address] June, COPD exacerbation J44.1 [place] [address] [address] May, [place] [address] [address] Apr, Seasonal allergic rhinitis d ue to pollen J30.1 ; Encounter for immunization Z23 ; COPD exacerbation J44.1 ; Encounter for screening mammogram for breast cancer Z12.31 and Colon cancer screening Z12.11 [place] [address] [address] Apr, [place] [address] [address] Feb, Lumbago with sciatica, right side M54.41 ; Lumbago with sciatica, left side M54.42 ; Other chronic pain G89.29 ; Left hip pain M25.552 and Anxiety F41.9 [facility] [address] [place] [id number] [place] [address] Jan, History of asthma Z87.09 ; C OPD exacerbation J44.1 and Acute non-recurrent maxillary sinusitis J01.00 [place] [address] [address] Jan, Other chronic pain G89.29 an d Acute bilateral low back pain with left-sided sciatica M54.42 [place] [address] [address] 14 Jan, 2017 Other chronic pain G89.29 an d Acute bilateral low back pain with left-sided sciatica M54.42 [place] [address] [address] Dec, Trochanteric bursitis of lef t hip M70.62 ; Left hip pain M25.552 and Other chronic pain G89.29 [facility] [address] [address] Nov, Local reaction to insect sti ng, accidental or unintentional, initial encounter T63.481A and Acute dermatitis L30.9 [place] [address] [address] Nov, Breast cancer screening Z12. 31 [place] [address] [address] Nov, Acute bilateral low back rangel n with left-sided sciatica M54.42 and Low back pain, unspecified back pain laterality, with sciatica presence unspecified M54.5 [facility] [address] [address] Oct, Acute bilateral low back rangel n with left-sided sciatica M54.42 [place] [address] [address] Sep, Low back pain, unspecified b ack pain laterality, with sciatica presence unspecified M54.5 [place] [address] [id number] Sep, [place] [address] [address] Aug, Nail hypertrophy L60.2 ; Lakshmi chomycosis B35.1 and Self-care deficit for hygiene R46.0 [place] [address] [address] Aug, [facility] [address] [id number] [address] [place] [address] Aug, [facility] [address] [id number] [address] [place] [address] Jul, Rash R21 [facility] [address] [facility] [id number] [address] [place] [id number] Jul, [facility] [address] [facility] [id number] [address] [place] [id number] Jul, Low back pain, unspecified b ack pain laterality, with sciatica presence unspecified M54.5 [facility] [address] [facility] [id number] [address] [place] [address] June, Nail hypertrophy L60.2 ; Marilee f-care deficit for hygiene R46.0 and Other chronic pain G89.29 [facility] [address] [place] [id number] [place] [address] June, Low back pain, unspecified b ack pain laterality, with sciatica presence unspecified M54.5 [facility] [address] [facility] [id number] [address] [place] [address] May, [facility] [address] [facility] [id number] [address] [place] [address] May, [facility] [address] [facility] [id number] [address] [place] [address] May, [facility] [address] [facility] [id number] [address] [place] [address] May, Low back pain, unspecified b ack pain laterality, with sciatica presence unspecified M54.5 [facility] [address] [facility] [id number] [address] [place] [address] Apr, Breast pain, left N64.4 ; Le ft arm pain M79.602 and Family history of diabetes mellitus Z83.3 [facility] [address] [place] [id number] [place] [address] Apr, Low back pain, unspecified b ack pain laterality, with sciatica presence unspecified M54.5 [facility] [address] [id number] [address] [place] [address] Apr, [facility] [address] [id number] [address] [place] [address] 28 Mar, 2016 Onychomycosis B35.1 and Self -care deficit for hygiene R46.0 [facility] [address] [id number] [address] [place] [id number] 17 Mar, 2016 Low back pain, unspecified b ack pain laterality, with sciatica presence unspecified M54.5 [facility] [address] [id number] [address] [place] [address] 14 Mar, 2016 Pain in left shoulder M25.51 2 and Other chronic pain G89.29 [facility] [address] [id number] [address] [place] [address] 13 Mar, 2016 Arthralgia, unspecified join t M25.50 [facility] [address] [id number] [address] [place] [address] 06 Mar, 2016 [facility] [address] [id number] [address] [place] [address] Feb, Low back pain, unspecified b ack pain laterality, with sciatica presence unspecified M54.5 [facility] [address] [id number] [address] [place] [address] Feb, [facility] [address] [id number] [address] [place] [id number] Feb, Dental examination Z01.20 [facility] [address] [id number] [address] [place] [id number] Feb, Dental examination Z01.20 [facility] [address] [id number] [address] [place] [address] Feb, Cramp of both lower extremit ies R25.2 [facility] [address] [facility] [id number] [address] [place] [address] Feb, [facility] [address] [facility] [id number] [address] [place] [address] Jan, Hypoxemia R09.02 ; Episodic cluster headache, not intractable G44.019 and Cramp of both lower extremities R25.2 [place] [address] [facility] [id number] [address] [place] [address] Jan, [facility] [address] [facility] [id number] [address] [place] [address] Jan, Low back pain, unspecified b ack pain laterality, with sciatica presence unspecified M54.5 [place] [address] [place] [id number] [place] [address] Jan, Hypertrophy of nail L60.2 ; Onychomycosis B35.1 and Self-care deficit for hygiene R46.0 [place] [address] [facility] [id number] [address] [place] [address] Jan, Low back pain, unspecified b ack pain laterality, with sciatica presence unspecified M54.5 [place] [address] [place] [id number] [place] [address] Dec, Low back pain, unspecified b ack pain laterality, with sciatica presence unspecified M54.5 [facility] [address] [place] [id number] [place] [address] Dec, Bug bite with infection, ini tial encounter W57.XXXA [place] [address] [place] [id number] [place] [id number] Nov, Low back pain, unspecified b ack pain laterality, with sciatica presence unspecified M54.5 [place] [address] [place] [id number] [place] [address] Nov, [place] [address] [place] [id number] [place] [address] Nov, Chronic obstructive pulmonar y disease, unspecified COPD type J44.9 [facility] [address] [id number] [address] [place] [id number] Nov, [facility] [address] [id number] [address] [place] [address] Oct, [facility] [address] [facility] [id number] [address] [place] [address] Oct, Onychomycosis B35.1 and Ingr own nail L60.0 [place] [address] [id number] [address] [place] [address] Oct, Low back pain, unspecified b ack pain laterality, with sciatica presence unspecified M54.5 [place] [address] [facility] [id number] [address] [place] [address] Sep, [facility] [address] [facility] [id number] [address] [place] [address] Sep, Low back pain, unspecified b ack pain laterality, with sciatica presence unspecified M54.5 [place] [address] [id number] [address] [place] [address] Aug, [place] [address] [facility] [id number] [address] [place] [address] Aug, Cramp of both lower extremit ies R25.2 ; Breast cancer screening Z12.39 ; Hyperlipidemia, unspecified hyperlipidemia type E78.5 and Atypical mole L81.9 [facility] [address] [id number] [address] [place] [address] Aug, Chronic obstructive pulmonar y disease, unspecified COPD type J44.9 [facility] [address] [id number] [address] [place] [address] Aug, Low back pain, unspecified b ack pain laterality, with sciatica presence unspecified M54.5 [place] [address] [id number] [address] [place] [address] 11 Aug, 2015 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 [facility] [address] [id number] [address] [place] [address] Jul, [facility] [address] [facility] [id number] [address] [place] [address] 15 Jul, 2015 [place] [address] [id number] [address] [place] [address] Jul, Allergic rhinitis, unspecifi ed allergic rhinitis type J30.9 [place] [address] [id number] [address] [place] [address] Jul, Low back pain, unspecified b ack pain laterality, with sciatica presence unspecified M54.5 [place] [address] [facility] [id number] [address] [place] [address] Jul, Post-concussion headache G44 .309 and Arthralgia, unspecified joint M25.50 [place] [address] [id number] [address] [place] [address] June, Chronic obstructive pulmonar y disease, unspecified COPD type J44.9 [facility] [address] [facility] [id number] [address] [place] [address] June, [place] [address] [facility] [id number] [address] [place] [address] May, [facility] [address] [facility] [id number] [address] [place] [address] 05 May, 2015 [place] [address] [facility] [id number] [address] [place] [id number] 30 Apr, 2015 Hip pain 719.45 and Atherosc lerotic heart disease of viejas coronary artery without angina pectoris I25.10 [facility] [address] [facility] [id number] [address] [place] [address] 22 Apr, 2015 History of self-care deficit Z86.59 ; Hypertrophy of nail L60.2 and Onychomycosis B35.1 [facility] [address] [id number] [address] [place] [id number] 16 Apr, 2015 [facility] [address] [facility] [id number] [address] [place] [address] Apr, Gastroenteritis K52.9 [facility] [address] [id number] [address] [place] [address] Mar, [facility] [address] [id number] [address] [place] [address] Mar, [facility] [address] [id number] [address] [place] [address] Mar, [facility] [address] [facility] [id number] [address] [place] [address] Mar, Acute pain due to injury G89 .11 and Other chronic pain G89.29 [facility] [address] [facility] [id number] [address] [place] [address] Mar, [facility] [address] [id number] [address] [place] [phone] Mar, [facility] [address] [facility] [id number] [address] [place] [address] Mar, [facility] [address] [facility] [id number] [address] [place] [address] Mar, [facility] [address] [facility] [id number] [address] [place] [address] Feb, Low back pain, unspecified b ack pain laterality, with sciatica presence unspecified M54.5 [facility] [address] [facility] [id number] [address] [place] [phone] Feb, [facility] [address] [facility] [id number] [address] [place] [phone] Jan, [facility] [address] [facility] [id number] [address] [place] [id number] Jan, Low back pain, unspecified b ack pain laterality, with sciatica presence unspecified M54.5 [facility] [address] [id number] [address] [place] [address] Jan, Other chronic pain G89.29 an d Acute pain due to injury G89.11 [facility] [address] [id number] [address] [place] [address] Dec, [facility] [address] [facility] [id number] [address] [place] [address] Nov, Essential hypertension I10 a nd Viral infection, unspecified B34.9 [facility] [address] [facility] [id number] [address] [place] [id number] Nov, [facility] [address] [facility] [id number] [address] [place] [id number] Nov, [facility] [address] [facility] [id number] [address] [place] [id number] Oct, [facility] [address] [id number] [address] [place] [id number] Oct, [facility] [address] [facility] [id number] [address] [place] [address] Oct, [facility] [address] [id number] [address] [place] [address] Oct, [facility] [address] [facility] [id number] [address] [place] [address] Sep, [facility] [address] [facility] [id number] [address] [place] [address] Sep, Hypertrophy of nail 703.8 an d Self-care deficit for hygiene V40.39 [facility] [address] [id number] [address] [place] [address] Sep, [facility] [address] [place] [place] [id number] [address] [place] [address] Sep, [facility] [address] [id number] [address] [place] [address] Aug, [facility] [address] [id number] [address] [place] [address] Jul, Onychomycosis 110.1 and Ingr own nail 703.0 [facility] [address] [id number] [address] [place] [address] Jul, Other screening mammogram V7 6.12 [facility] [address] [id number] [address] [place] [address] Jul, [facility] [address] [id number] [address] [place] [address] Jul, Hip pain 719.45 ; Visual dis turbance 368.9 and Conjunctivitis 372.30 [facility] [address] [id number] [address] [place] [address] June, [facility] [address] [id number] [address] [place] [address] June, [facility] [address] [facility] [id number] [address] [place] [address] June, [facility] [address] [facility] [id number] [address] [place] [address] June, [facility] [address] [facility] [id number] [address] [place] [address] May, [facility] [address] [id number] [address] [place] [address] May, [facility] [address] [id number] [address] [place] [address] Apr, [facility] [address] [id number] [address] [place] [address] Apr, [facility] [address] [facility] [id number] [address] [place] [address] Apr, [facility] [address] [id number] [address] [place] [address], [place] [address] Apr, [facility] [address] [id number] [address] [place] [address], [place] [address] Mar, [facility] [address] [id number] [address] [place] [address], [place] [address] Mar, [facility] [address] [id number] [address] [place] [address], [place] [address] Feb, [facility] [address] [id number] [address] [place] [address], [place] [address] Feb, [facility] [address] [id number] [address] [place] [address], [place] [address] Feb, [facility] [address] [id number] [address] [place] [address], [place] [address] Jan, [facility] [address] [id number] [address] [place] [address], [place] [address] Jan, [facility] [address] [id number] [address] [place] [address], [place] [address] Jan, [facility] [address] [id number] [address] [place] [address], [place] [address] Jan, [facility] [address] [id number] [address] [place] [address], [place] [address] Jan, [facility] [address] [id number] [address] [place] [address], [place] [address] Jan, [facility] [address] [id number] [address] [place] [address], [place] [address] Dec, [facility] [address] [id number] [address] [place] [address], [place] [address] Nov, [facility] [address] [id number] [address] [place] [address], [place] [address] Nov, [facility] [address] [id number] [address] [place] [address], [place] [address] Nov, 2013 [facility] [address] [id number] [address] [place] [address], [place] [address] Nov, 2013 [facility] [address] [id number] [address] [place] [address], [place] [address] Nov, 2013 [facility] [address] [id number] [address] [place] [address], [place] [address] Nov, 2013 [facility] [address] [id number] [address] [place] [address], [place] [address] Nov, 2013 [facility] [address] [id number] [address] [place] [address], [place] [address] Nov, [facility] [address] [id number] [address] [place] [address], [place] [address] Nov, [facility] [address] [id number] [address] [place] [address], [place] [address] Nov, [facility] [address] [id number] [address] [place] [address], [place] [address] 25 Oct, 2013 [facility] [address] [id number] [address] [place] [address], [place] [address] 25 Sep, 2013 [facility] [address] [id number] [address] [place] [address], [place] [address] 24 Sep, 2013 [facility] [address] [id number] [address] [place] [address] 24 Sep, 2013 [facility] [address] [id number] [address] [place] [address] 15 Sep, 2013 [facility] [address] [id number] [address] [place] [address], [place] [address] 15 Sep, 2013 [facility] [address] [id number] [address] [place] [address], [place] [address] 04 Sep, 2013 [facility] [address] [id number] [address] [place] [address], [place] [address] 04 Sep, 2013 [facility] [address] [id number] [facility] [address] Sep, [facility] [address] [id number] [address] [place] [address], [place] [address] Sep, [facility] [address] [id number] [address] [place] [address], [place] [address] Sep, [facility] [address] [id number] [address] [place] [address], [place] [address] Sep, [facility] [address] [id number] [address] [place] [address], [place] [address] Aug, [facility] [address] [id number] [address] [place] [address], [place] [address] Aug, [facility] [address] [id number] [address] [place] [address], [place] [address] Aug, [facility] [address] [id number] [address] [place] [address], [place] [address] Aug, [facility] [address] [id number] [address] [place] [address], [place] [address] Aug, [facility] [address] [id number] [address] [place] [address], [place] [address] Aug, [facility] [address] [id number] [address] [place] [address], [place] [address] Aug, [facility] [address] [id number] [address] [place] [address], [place] [address] Aug, [facility] [address] [id number] [address] [place] [address], [place] [address] Jul, [facility] [address] [id number] [address] [place] [address], [place] [address] Jul, [facility] [address] [id number] [address] [place] [address], [place] [address] Jul, [facility] [address] [id number] [address] [place] [address], [place] [address] Jul, [facility] [address] [id number] [address] [place] [address], [place] [address] Jul, [facility] [address] [id number] [address] [place] [address], [place] [address] Jul, [facility] [address] [id number] [address] [place] [address], [place] [address] Jul, [facility] [address] [id number] [address] [place] [address], [place] [address] Jul, [facility] [address] [id number] [address] [place] [address], [place] [address] Jul, [facility] [address] [id number] [address] [place] [address], [place] [address] Jul, [facility] [address] [id number] [address] [place] [address], [place] [address] Jul, [facility] [address] [id number] [address] [place] [address], [place] [address] Jul, [facility] [address] [id number] [address] [place] [address], [place] [address] Jul, [facility] [address] [id number] [address] [place] [address], [place] [address] Jul, [facility] [address] [id number] [address] [place] [address], [place] [address] Jul, [facility] [address] [id number] [address] [place] [address], [place] [address] Jul, [facility] [address] [id number] [address] [place] [address], [place] [address] Jul, [facility] [address] [id number] [address] [place] [address], [place] [address] June, [facility] [address] [id number] [address] [place] [address], [place] [address] June, [facility] [address] [id number] [address] [place] [address], [place] [address] May, [facility] [address] [id number] [facility] [place] [address] May, [facility] [address] [id number] [address] [place] [address], [place] [address] May, [facility] [address] [id number] [address] [place] [address], [place] [address] May, [facility] [address] [id number] [address] [place] [address], [place] [address] 17 Apr, 2013 [facility] [address] [id number] [address] [place] [address], [place] [address] 17 Apr, 2013 [facility] [address] [id number] [address] [place] [address], [place] [address] Apr, [facility] [address] [id number] [address] [place] [address], [place] [address] Apr, [facility] [address] [id number] [address] [place] [address], [place] [address] Apr, [facility] [address] [id number] [address] [place] [address], [place] [address] Apr, [facility] [address] [id number] [address] [place] [address], [place] [address] Apr, [facility] [address] [id number] [address] [place] [address], [place] [address] Mar, [facility] [address] [id number] [address] [place] [address], [place] [address] Mar, [facility] [address] [id number] [address] [place] [address], [place] [address] Mar, [facility] [address] [id number] [address] [place] [address], [place] [address] Mar, [facility] [address] [id number] [address] [place] [address], [place] [address] Feb, [facility] [address] [id number] [address] [place] [address], [place] [address] Feb, [facility] [address] [id number] [address] [place] [address], [place] [address] Feb, [facility] [address] [id number] [address] [place] [address], [place] [address] Feb, [facility] [address] [id number] [address] [place] [address], [place] [address] Jan, [facility] [address] [id number] [address] [place] [address], [place] [address] Jan, [facility] [address] [id number] [address] [place] [address], [place] [address] Jan, [facility] [address] [id number] [address] [place] [address], [place] [address] Jan, [facility] [address] [id number] [address] [place] [address], [place] [address] Dec, [facility] [address] [id number] [address] [place] [address], [place] [address] Dec, [facility] [address] [id number] [address] [place] [address], [place] [address] Dec, [facility] [address] [id number] [address] [place] [address], [place] [address] Dec, [facility] [address] [id number] [address] [place] [address], [place] [address] Dec, [facility] [address] [id number] [address] [place] [address], [place] [address] Nov, [facility] [address] [id number] [address] [place] [address], [place] [address] Nov, [facility] [address] [id number] [address] [place] [address], [place] [address] Nov, [facility] [address] [id number] [address] [place] [address], [place] [address] Nov, [facility] [address] [id number] [address] [place] [address], [place] [address] Nov, [facility] [address] [id number] [address] [place] [address], [place] [address] Nov, [facility] [address] [id number] [address] [place] [address], [place] [address] Nov, [facility] [address] [id number] [address] [place] [address], [place] [address] Nov, [facility] [address] [id number] [address] [place] [address], [place] [address] Oct, [facility] [address] [id number] [address] [place] [address], [place] [address] Oct, [facility] [address] [id number] [address] [place] [address], [place] [address] Sep, [facility] [address] [id number] [address] [place] [address], [place] [address] Sep, [facility] [address] [id number] [address] [place] [address], [place] [address] Sep, [facility] [address] [id number] [address] [place] [address], [place] [address] Sep, [facility] [address] [id number] [address] [place] [address], [place] [address] Sep, [facility] [address] [id number] [address] [place] [address], [place] [address] Sep, [facility] [address] [id number] [address] [place] [address], [place] [address] Sep, [facility] [address] [id number] [address] [place] [address], [place] [address] Aug, [facility] [address] [id number] [address] [place] [address], [place] [address] Aug, [facility] [address] [id number] [address] [place] [address], [place] [address] 25 Aug, 2012 [facility] [address] [id number] [address] [place] [address], [place] [address] 17 Aug, 2012 [facility] [address] [id number] [address] [place] [address], [place] [address] 16 Aug, 2012 [facility] [address] [id number] [address] [place] [address], [place] [address] 15 Aug, 2012 [facility] [address] [id number] [address] [place] [address], [place] [address] 05 Aug, 2012 [facility] [place] [address] [id number] [address] [place] [address], [place] [address] Aug, [facility] [address] [id number] [address] [place] [address], [place] [address] Jul, [facility] [address] [id number] [address] [place] [address], [place] [address] Jul, [facility] [place] [address] [id number] [address] [place] [address], [place] [address] Jul, [facility] [place] [address] [id number] [address] [place] [address], [place] [address] Jul, [facility] [address] [id number] [address] [place] [address], [place] [address] June, [facility] [address] [id number] [address] [place] [address], [place] [address] June, [facility] [address] [id number] [address] [place] [address], [place] [address] June, [facility] [address] [id number] [address] [place] [address], [place] [address] June, [facility] [address] [id number] [address] [place] [address], [place] [address] June, [facility] [address] [id number] [address] [place] [address], [place] [address] May, [facility] [address] [id number] [address] [place] [address], [place] [address] May, [facility] [address] [id number] [address] [place] [address], [place] [address] 16 May, 2012 [facility] [address] [id number] [address] [place] [address], [place] [address] 04 May, 2012 [facility] [address] [id number] [address] [place] [address], [place] [address] 26 Apr, 2012 [facility] [address] [id number] [address] [place] [address], [place] [address] 25 Apr, 2012 [facility] [address] [id number] [address] [place] [address], [place] [address] 08 Apr, 2012 [facility] [address] [id number] [address] [place] [address], [place] [address] 07 Apr, 2012 [facility] [place] [address] [id number] [address] [place] [address], [place] [address] 21 Mar, 2012 [facility] [address] [id number] [address] [place] [address], [place] [address] 15 Mar, 2012 [facility] [address] [id number] [address] [place] [address], [place] [address] 13 Mar, 2012 [facility] [address] [id number] [address] [place] [address], [place] [address] 07 Mar, 2012 [facility] [place] [address] [id number] [address] [place] [address], [place] [address] Feb, [facility] [address] [id number] [address] [place] [address], [place] [address] Jan, [facility] [place] [address] [id number] [address] [place] [address], [place] [address] Jan, [facility] [address] [id number] [address] [place] [address], [place] [address] Jan, [facility] [place] [address] [id number] [address] [place] [address] [place] [address] 29 Dec, 2011 [facility] [address] [id number] [address] [place] [address], [place] [address] 29 Dec, 2011 [facility] [address] [id number] [address] [place] [address], [place] [address] 28 Dec, 2011 [facility] [address] [id number] [address] [place] [address], [place] [address] 28 Dec, 2011 [facility] [address] [id number] [address] [place] [address], [place] [address] 15 Dec, 2011 [facility] [address] [id number] [address] [place] [address], [place] [address] 15 Dec, 2011 [facility] [address] [id number] [address] [place] [address], [place] [address] 14 Dec, 2011 [facility] [address] [id number] [address] [place] [address], [place] [address] Dec, [facility] [address] [id number] [address] [place] [address], [place] [address] Dec, [facility] [address] [id number] [address] [place] [address], [place] [address] 17 Nov, 2011 [facility] [address] [id number] [address] [place] [address], [place] [address] 17 Nov, 2011 [facility] [address] [id number] [address] [place] [address], [place] [address] Nov, [facility] [address] [id number] [address] [place] [address] 12 Nov, 2011 [facility] [address] [id number] [address] [place] [address], [place] [address] 10 Nov, 2011 [facility] [address] [id number] [address] [place] [address], [place] [address] 10 Nov, 2011 [facility] [address] [id number] [address] [place] [address] 12 Oct, 2011 [facility] [address] [id number] [address] [place] [address], [place] [address] Sep, [facility] [address] [id number] [address] [place] [address], [place] [address] Sep, [facility] [address] [id number] [address] [place] [address], [place] [address] Aug, [facility] [address] [id number] [address] [place] [address], [place] [address] Aug, [facility] [address] [id number] [address] [place] [address], [place] [address] Aug, [facility] [address] [id number] [address] [place] [address], [place] [address] Aug, [facility] [address] [id number] [address] [place] [address], [place] [address] Aug, [facility] [address] [id number] [address] [place] [address], [place] [address] Jul, [facility] [address] [id number] [address] [place] [address], [place] [address] Jul, [facility] [address] [id number] [address] [place] [address], [place] [address] June, [facility] [address] [id number] [address] [place] [address], [place] [address] June, [facility] [address] [id number] [address] [place] [address], [place] [address] June, [facility] [address] [id number] [address] [place] [address], [place] [address] June, [facility] [address] [id number] [address] [place] [address], [place] [address] May, [facility] [address] [id number] [address] [place] [address], [place] [address] Apr, [facility] [address] [id number] [address] [place] [address], [place] [address] Apr, 2011 [facility] [address] [id number] [address] [place] [address], [place] [address] 15 Apr, 2011 [facility] [address] [id number] [address] [place] [address], [place] [address] 08 Apr, 2011 [facility] [address] [id number] [address] [place] [address], [place] [address] Apr, [facility] [address] [id number] [address] [place] [address], [place] [address] Mar, [facility] [address] [id number] [address] [place] [address], [place] [address] Mar, [facility] [address] [id number] [address] [place] [address], [place] [address] Mar, [facility] [address] [id number] [address] [place] [address], [place] [address] Feb, [facility] [address] [id number] [address] [place] [address], [place] [address] Feb, [facility] [address] [id number] [address] [place] [address], [place] [address] Feb, [facility] [facility] [address] [id number] [address] [place] [address], [place] [address] Feb, [facility] [address] [id number] [address] [place] [address], [place] [address] Feb, [facility] [address] [id number] [address] [place] [address], [place] [address] Feb, [facility] [address] [id number] [address] [place] [address], [place] [address] Jan, [facility] [address] [id number] [address] [place] [address], [place] [address] Jan, [facility] [address] [id number] [address] [place] [address], [place] [address] Jan, [facility] [address] [id number] [address] [place] [address], [place] [address] 13 Jan, 2011 [facility] [place] [address] [id number] [address] [place] [address], [place] [address] 02 Jan, 2011 [facility] [address] [id number] [address] [place] [address], [place] [address] 16 Jul, 2010 [facility] [address] [id number] [address] [place] [address], [place] [address] June, [facility] [address] [id number] [address] [place] [address], [place] [address] 13 Feb, 2010 [facility] [place] [address] [id number] [address] [place] [address], [place] [address] 20 Jan, 2010 [facility] [place] [address] [id number] [address] [place] [address], [place] [address] Sep, [facility] [place] [address] [id number] [address] [place] [address], [place] [address] Aug, [facility] [address] [id number] [address] [place] [address], [place] [address] 14 May, 2009 [facility] [place] [address] [id number] [address] [place] [address], [place] [address] 16 Apr, 2009 [facility] [address] [id number] [address] [place] [address], [place] [address] 28 Jan, 2009 [facility] [place] [address] [id number] [address] [place] [address], [place] [address] Jan, [facility] [address] [id number] [address] [place] [address], [place] [address] Jan, [facility] [address] [id number] [address] [place] [address], [place] [address] Dec, [facility] [address] [id number] [address] [place] [address], [place] [address] Dec, [facility] [place] [address] [id number] [address] [place] [address], [place] [address] Nov, [facility] [address] [facility] [id number] [address] [place] [id number] Nov, [facility] [address] [facility] [id number] [address] [place] [address] Nov, IMMUNIZATIONS No Known Immunizations SOCIAL HISTORY [...]
--- OUTSIDE RECORDS SUMMARY | 2019-07-19 09:27 | XMS REPORT ---
Author Author Juanita PATIÑO Organization [facility] [place] Address [address] [place] [address] Care Team Providers Care Impersonator Character Name Role Phone FUENTES PATIÑO Unavailable PROBLEMS Type Condition ICD9-CM Code [id number] Code Onset Dates Condition S tatus SNOMED Code Problem Episodic cluster headache, not intractable G44.019 Active 333071823 Problem Angina pectoris, unspecified I20.9 A ctive 376913798 Problem Acute bilateral low back pain with left-sided sciatica M54.42 Active 92942785 Problem Other chronic pain G89.29 Active 8 3378865 Problem Lumbago with sciatica, right side M54.41 Active 312890909 Problem Lumbago with sciatica, left side M54.42 Active 638617202 Problem COPD exacerbation J44.1 Active 29 8354450192601 Problem Anxiety F41.9 Active 06202560 Problem Major depressive disorder, recurrent, mild F33.0 Active 904922097 Problem History of diabetes mellitus, type II Z86.39 Active 884616787 Problem Other chronic pain G89.29 Active 8 1036197 Problem Hyperlipidemia, unspecified hyperlipidemia type E7 8.5 Active 53119823 Problem 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.0 Active 325855811 Problem Chronic obstructive pulmonary disease, unspecified COPD ty pe J44.9 Active 55637715 Problem Essential hypertension I10 Active 67397287 Problem Seasonal allergic rhinitis due to pollen J30.1 Active 17515741 Problem 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 Active 7937482943572 Problem Hypoglycemia E16.2 Active 5194420 03 Problem 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 Active 855823888773 7 Problem Primary osteoarthritis of right knee M17.11 Active 959091255656399 Problem Dysphagia, unspecified type R13.10 Ac tive 30885460 ALLERGIES No Information ENCOUNTERS Encounter Location Date Diagnosis [place] [address] [address] Jul, [place] [address] [address] May, Nail hypertrophy L60.2 ; 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 and Self-care deficit for grooming and hygiene Z74.1 [place] [address] [address] May, [place] [address] [address] 30 Apr, 2019 Dysphagia, unspecified type R13.10 ; Coronary artery disease of ramona artery of ramona heart with stable angina pectoris I25.118 and Breast cancer screening by mammogram Z12.31 [place] [address] [address] 10 Apr, 2019 Low back pain, unspecified b ack pain laterality, with sciatica presence unspecified M54.5 ; Onychomycosis B35.1 ; Other chronic pain G89.29 ; Chronic obstructive pulmonary disease, unspecified COPD type J44.9 ; Essential hypertension I10 ; Family history of diabetes mellitus Z83.3 ; Hyperlipidemia, unspecified hyperlipidemia type E78.5 ; Anxiety F41.9 and 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 [place] [address] [place] [id number] [place] [address] Mar, Primary osteoarthritis of ri ght knee M17.11 [place] [address] [place] [id number] [address] [place] [address] Mar, [place] [address] [address] Feb, Onychomycosis B35.1 ; Nail h ypertrophy L60.2 and Self-care deficit for grooming and hygiene Z74.1 [place] [id number] [place] [address] Jan, Posterior right knee pain M2 5.561 ; Pain in left leg M79.605 ; Pain in right leg M79.604 ; Coronary artery disease of ramona artery of ramona heart with stable angina pectoris I25.118 and Encounter for immunization Z23 [facility] [place] [address] [facility] [id number] [place] [address] Dec, Nail hypertrophy L60.2 ; Lakshmi chomycosis B35.1 and Self-care deficit for grooming and hygiene Z74.1 [place] [address] [facility] [id number] [place] [address] Oct, [place] [address] [facility] [id number] [place] [address] Sep, Other chest pain R07.89 [place] [address] [place] [id number] [place] [address] Sep, [facility] [address] [place] [id number] [place] [address] Sep, Cellulitis of groin L03.314 [place] [address] [place] [id number] [place] [address] Sep, Nail hypertrophy L60.2 and S elf-care deficit for grooming and hygiene Z74.1 [facility] [place] [address] [place] [id number] [place] [phone] Aug, [place] [address] [facility] [id number] [place] [address] Aug, Hypoglycemia E16.2 ; Nonintr actable episodic headache, unspecified headache type R51 and Candidiasis of breast B37.89 [facility] [place] [address] [facility] [id number] [address] [place] [address] Aug, Nail hypertrophy L60.2 and S elf-care deficit for grooming and hygiene Z74.1 [place] [address] [facility] [id number] [address] [place] [id number] June, [facility] [address] [facility] [id number] [address] [place] [address] May, Bee sting, accidental or uni ntentional, initial encounter T63.441A [place] [address] [address] Apr, Primary osteoarthritis invol ving multiple joints M15.0 ; Angina pectoris, unspecified I20.9 ; History of diabetes mellitus, type II Z86.39 and Chronic obstructive pulmonary disease, unspecified COPD type J44.9 [place] [address] [address] Apr, Nail hypertrophy L60.2 and S [facility] deficit for grooming and hygiene Z74.1 [place] [address] [address] Mar, [facility] [address] [address] Mar, Low back pain M54.5 [place] [address] [address] Mar, [facility] [place] [address] [place] [id number] [place] [address] Feb, [place] [address] [address] Feb, [place] [address] [address] Feb, Encounter for Medicare annua l wellness exam Z00.00 ; Major depressive disorder, recurrent, mild F33.0 ; Chronic obstructive pulmonary disease, unspecified COPD type J44.9 ; 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 ; Primary osteoarthritis involving multiple joints M15.0 ; Angina pectoris, unspecified I20.9 and 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 [place] [address] [place] [id number] [place] [address] Jan, [facility] [place] [address] [address] Jan, [facility] [place] [address] [place] [address] Dec, Chronic obstructive pulmonar y disease, unspecified COPD type J44.9 ; Low back pain M54.5 ; Other chronic pain G89.29 and Moderate episode of recurrent major depressive disorder F33.1 [place] [address] [place] [address] Nov, [place] [address] [place] [id number] [place] [address] Nov, Encounter for immunization Z 23 [place] [address] [address] Nov, Allergic rhinitis due to ned iona, unspecified seasonality J30.1 ; Primary osteoarthritis involving multiple joints M15.0 and Encounter for immunization Z23 [place] [address] [address] Oct, Nail hypertrophy L60.2 and S elf-care deficit for hygiene R46.0 [facility] [address] [address] 05 Oct, 2017 Chest congestion R09.89 ; So re throat J02.9 and Cough R05 [place] [address] [place] [id number] [place] [address] Sep, [facility] [place] [address] [place] [id number] [place] [address] Aug, Low back pain M54.5 ; Other chronic pain G89.29 ; Pain in right knee M25.561 ; Pain in left knee M25.562 and Rash R21 [place] [address] [place] [id number] [place] [address] Aug, Nail hypertrophy L60.2 and S elf-care deficit for hygiene R46.0 [facility] [place] [address] [place] [id number] [place] [address] June, Hypertrophy of nail L60.2 an d Self-care deficit for hygiene R46.0 [facility] [place] [address] [facility] [id number] [address] [place] [address] June, [facility] [place] [address] [facility] [id number] [address] [place] [address] June, COPD exacerbation J44.1 [facility] [place] [address] [facility] [id number] [address] [place] [address] May, [facility] [place] [address] [facility] [id number] [address] [place] [address] Apr, Seasonal allergic rhinitis d ue to pollen J30.1 ; Encounter for immunization Z23 ; COPD exacerbation J44.1 ; Encounter for screening mammogram for breast cancer Z12.31 and Colon cancer screening Z12.11 [place] [address] [place] [id number] [place] [address] Apr, [place] [address] [place] [id number] [place] [address] Feb, Lumbago with sciatica, right side M54.41 ; Lumbago with sciatica, left side M54.42 ; Other chronic pain G89.29 ; Left hip pain M25.552 and Anxiety F41.9 [facility] [address] [place] [id number] [place] [address] Jan, History of asthma Z87.09 ; C OPD exacerbation J44.1 and Acute non-recurrent maxillary sinusitis J01.00 [facility] [place] [address] [facility] [id number] [address] [place] [address] Jan, Other chronic pain G89.29 an d Acute bilateral low back pain with left-sided sciatica M54.42 [facility] [place] [address] [facility] [id number] [address] [place] [address] 14 Jan, 2017 Other chronic pain G89.29 an d Acute bilateral low back pain with left-sided sciatica M54.42 [facility] [place] [address] [address] Dec, Trochanteric bursitis of lef t hip M70.62 ; Left hip pain M25.552 and Other chronic pain G89.29 [facility] [address] [address] Nov, Local reaction to insect sti ng, accidental or unintentional, initial encounter T63.481A and Acute dermatitis L30.9 [place] [address] [address] Nov, Breast cancer screening Z12. 31 [place] [address] [address] Nov, Acute bilateral low back rangel n with left-sided sciatica M54.42 and Low back pain, unspecified back pain laterality, with sciatica presence unspecified M54.5 [facility] [address] [address] Oct, Acute bilateral low back rangel n with left-sided sciatica M54.42 [place] [address] [address] Sep, Low back pain, unspecified b ack pain laterality, with sciatica presence unspecified M54.5 [place] [address] [address] Sep, [place] [address] [address] Aug, Nail hypertrophy L60.2 ; Lakshmi chomycosis B35.1 and Self-care deficit for hygiene R46.0 [place] [address] [address] Aug, [place] [address] [address] Aug, [facility] [address] [address] Jul, Rash R21 [facility] [place] [address] [id number] [address] [place] [address] Jul, [facility] [place] [address] [facility] [id number] [address] [place] [address] Jul, Low back pain, unspecified b ack pain laterality, with sciatica presence unspecified M54.5 [facility] [place] [address] [id number] [address] [place] [address] June, Nail hypertrophy L60.2 ; Marilee f-care deficit for hygiene R46.0 and Other chronic pain G89.29 [place] [address] [facility] [id number] [address] [place] [address] June, Low back pain, unspecified b ack pain laterality, with sciatica presence unspecified M54.5 [place] [address] [facility] [id number] [address] [place] [address] May, [facility] [place] [address] [id number] [address] [place] [address] May, [facility] [place] [address] [facility] [id number] [address] [place] [address] May, [facility] [place] [address] [facility] [id number] [address] [place] [address] May, Low back pain, unspecified b ack pain laterality, with sciatica presence unspecified M54.5 [facility] [place] [address] [facility] [id number] [address] [place] [address] Apr, Breast pain, left N64.4 ; Le ft arm pain M79.602 and Family history of diabetes mellitus Z83.3 [facility] [place] [address] [id number] [address] [place] [address] Apr, Low back pain, unspecified b ack pain laterality, with sciatica presence unspecified M54.5 [place] [address] [facility] [id number] [address] [place] [address] Apr, [facility] [place] [address] [id number] [address] [place] [address] 28 Mar, 2016 Onychomycosis B35.1 and Self -care deficit for hygiene R46.0 [facility] [place] [address] [id number] [address] [place] [address] 17 Mar, 2016 Low back pain, unspecified b ack pain laterality, with sciatica presence unspecified M54.5 [facility] [address] [id number] [address] [place] [address] 14 Mar, 2016 Pain in left shoulder M25.51 2 and Other chronic pain G89.29 [facility] [place] [address] [id number] [address] [place] [address] 13 Mar, 2016 Arthralgia, unspecified join t M25.50 [facility] [place] [address] [id number] [address] [place] [address] 06 Mar, 2016 [facility] [place] [address] [id number] [address] [place] [address] Feb, Low back pain, unspecified b ack pain laterality, with sciatica presence unspecified M54.5 [facility] [place] [address] [id number] [address] [place] [address] Feb, [facility] [address] [id number] [address] [place] [id number] Feb, Dental examination Z01.20 [facility] [address] [id number] [address] [place] [id number] Feb, Dental examination Z01.20 [facility] [place] [address] [id number] [address] [place] [address] Feb, Cramp of both lower extremit ies R25.2 [facility] [place] [address] [id number] [address] [place] [address] Feb, [facility] [place] [address] [id number] [address] [place] [address] Jan, Hypoxemia R09.02 ; Episodic cluster headache, not intractable G44.019 and Cramp of both lower extremities R25.2 [place] [address] [place] [id number] [place] [phone] Jan, [facility] [place] [address] [place] [id number] [place] [address] Jan, Low back pain, unspecified b ack pain laterality, with sciatica presence unspecified M54.5 [place] [address] [address] Jan, Hypertrophy of nail L60.2 ; Onychomycosis B35.1 and Self-care deficit for hygiene R46.0 [place] [address] [address] Jan, Low back pain, unspecified b ack pain laterality, with sciatica presence unspecified M54.5 [place] [address] [address] Dec, Low back pain, unspecified b ack pain laterality, with sciatica presence unspecified M54.5 [facility] [address] [address] Dec, Bug bite with infection, ini tial encounter W57.XXXA [place] [address] [address] Nov, Low back pain, unspecified b ack pain laterality, with sciatica presence unspecified M54.5 [place] [address] [place] [address] Nov, [place] [address] [address] Nov, Chronic obstructive pulmonar y disease, unspecified COPD type J44.9 [facility] [place] [address] [address] Nov, [facility] [place] [address] [facility] [id number] [address] [place] [address] Oct, [facility] [place] [address] [facility] [id number] [address] [place] [address] Oct, Onychomycosis B35.1 and Ingr own nail L60.0 [place] [address] [facility] [id number] [address] [place] [address] Oct, Low back pain, unspecified b ack pain laterality, with sciatica presence unspecified M54.5 [place] [address] [facility] [id number] [address] [place] [address] Sep, [place] [address] [place] [id number] [place] [address] Sep, Low back pain, unspecified b ack pain laterality, with sciatica presence unspecified M54.5 [place] [address] [place] [id number] [place] [address] Aug, [place] [address] [place] [id number] [place] [address] Aug, Cramp of both lower extremit ies R25.2 ; Breast cancer screening Z12.39 ; Hyperlipidemia, unspecified hyperlipidemia type E78.5 and Atypical mole L81.9 [place] [address] [place] [id number] [place] [address] Aug, Chronic obstructive pulmonar y disease, unspecified COPD type J44.9 [place] [address] [facility] [id number] [address] [place] [address] Aug, Low back pain, unspecified b ack pain laterality, with sciatica presence unspecified M54.5 [place] [address] [facility] [id number] [address] [place] [address] Aug, 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 [place] [address] [place] [id number] [place] [address] Jul, [facility] [place] [address] [id number] [address] [place] [address] Jul, [facility] [place] [address] [id number] [address] [place] [address] Jul, Allergic rhinitis, unspecifi ed allergic rhinitis type J30.9 [facility] [place] [address] [id number] [address] [place] [address] Jul, Low back pain, unspecified b ack pain laterality, with sciatica presence unspecified M54.5 [facility] [place] [address] [id number] [address] [place] [id number] 07 Jul, 2015 Post-concussion headache G44 .309 and Arthralgia, unspecified joint M25.50 [place] [address] [id number] [address] [place] [address] June, Chronic obstructive pulmonar y disease, unspecified COPD type J44.9 [facility] [place] [address] [id number] [address] [place] [address] June, [facility] [place] [address] [id number] [address] [place] [address] May, [facility] [place] [address] [id number] [address] [place] [address] May, [facility] [place] [address] [id number] [address] [place] [address] 30 Apr, 2015 Hip pain 719.45 and Atherosc lerotic heart disease of ramona coronary artery without angina pectoris I25.10 [facility] [place] [address] [id number] [address] [place] [address] Apr, History of self-care deficit Z86.59 ; Hypertrophy of nail L60.2 and Onychomycosis B35.1 [facility] [place] [address] [id number] [address] [place] [address] Apr, [facility] [place] [address] [id number] [address] [place] [address] Apr, Gastroenteritis K52.9 [facility] [place] [address] [id number] [address] [place] [address] Mar, [facility] [place] [address] [id number] [address] [place] [id number] Mar, [facility], [place] [address] [id number] [address] [place] [id number] Mar, [facility], [place] [address] [id number] [address] [place] [id number] Mar, Acute pain due to injury G89 .11 and Other chronic pain G89.29 [facility], [place] [address] [id number] [address] [place] [id number] Mar, [facility], [place] [address] [id number] [address] [place] [id number] Mar, [facility], [place] [address] [id number] [address] [place] [id number] Mar, [facility], [place] [address] [id number] [address] [place] [id number] Mar, [facility], [place] [address] [facility] [id number] [address] [place] [id number] Feb, Low back pain, unspecified b ack pain laterality, with sciatica presence unspecified M54.5 [facility], [place] [address] [id number] [address] [place] [id number] Feb, [facility], [place] [address] [id number] [address] [place] [id number] Jan, [facility], [place] [address] [facility] [id number] [address] [place] [id number] Jan, Low back pain, unspecified b ack pain laterality, with sciatica presence unspecified M54.5 [facility], [place] [address] [id number] [address] [place] [id number] Jan, Other chronic pain G89.29 an d Acute pain due to injury G89.11 [facility], [place] [address] [id number] [address] [place] [id number] Dec, [facility], [place] [address] [id number] [address] [place] [id number] Nov, Essential hypertension I10 a nd Viral infection, unspecified B34.9 [facility] [place] [address] [id number] [address] [place] [address] Nov, [facility] [place] [address] [id number] [address] [place] [address] Nov, [facility] [place] [address] [id number] [address] [place] [address] 30 Oct, 2014 [facility] [place] [address] [id number] [address] [place] [address] Oct, [facility] [place] [address] [id number] [address] [place] [address] Oct, [facility] [place] [address] [id number] [address] [place] [address] Oct, [facility] [place] [address] [id number] [address] [place] [address] Sep, [facility] [place] [address] [id number] [address] [place] [address] Sep, Hypertrophy of nail 703.8 an d Self-care deficit for hygiene V40.39 [facility] [place] [address] [id number] [address] [place] [address] Sep, [facility] [place] [address] [id number] [address] [place] [address] Sep, [facility] [place] [address] [id number] [address] [place] [address] Aug, [facility] [place] [address] [id number] [address] [place] [address] Jul, Onychomycosis 110.1 and Ingr own nail 703.0 [facility] [place] [address] [id number] [address] [place] [address] Jul, Other screening mammogram V7 6.12 [facility] [place] [address] [id number] [address] [place] [address] Jul, [facility] [place] [address] [id number] [address] [place] [address] Jul, Hip pain 719.45 ; Visual dis turbance 368.9 and Conjunctivitis 372.30 [facility] [place] [address] [id number] [address] [place] [address] June, [facility] [place] [address] [id number] [address] [place] [address] June, [facility] [place] [address] [id number] [address] [place] [address] June, [facility] [place] [address] [id number] [address] [place] [address] June, [facility] [place] [address] [id number] [address] [place] [address] May, [facility] [place] [address] [id number] [address] [place] [address] May, [facility] [place] [address] [id number] [address] [place] [address] Apr, [facility] [place] [address] [id number] [address] [place] [address] Apr, [facility] [place] [address] [id number] [address] [place] [address] Apr, [facility] [place] [address] [id number] [address] [place] [address] Apr, [facility] [place] [address] [id number] [address] [place] [address] Mar, [facility] [address] [id number] [address] [place] [address], [place] [address] Mar, [facility] [address] [id number] [address] [place] [address], [place] [address] Feb, [facility] [address] [id number] [address] [place] [address], [place] [address] Feb, [facility] [address] [id number] [address] [place] [address], [place] [address] Feb, [facility] [address] [id number] [address] [place] [address], [place] [address] Jan, [facility] [address] [id number] [address] [place] [address], [place] [address] Jan, [facility] [address] [id number] [address] [place] [address], [place] [address] Jan, [facility] [address] [id number] [address] [place] [address], [place] [address] Jan, [facility] [address] [id number] [address] [place] [address], [place] [address] Jan, [facility] [address] [id number] [address] [place] [address], [place] [address] Jan, [facility] [address] [id number] [address] [place] [address] Dec, [facility] [address] [id number] [address] [place] [address] Nov, [facility] [address] [id number] [address] [place] [address], [place] [address] Nov, [facility] [address] [id number] [address] [place] [address], [place] [address] Nov, [facility] [address] [id number] [address] [place] [address] Nov, [facility] [address] [id number] [address] [place] [address] Nov, [facility] [address] [id number] [address] [place] [address], [place] [address] Nov, [facility] [address] [id number] [address] [place] [address], [place] [address] Nov, [facility] [address] [id number] [address] [place] [address], [place] [address] Nov, [facility] [address] [id number] [address] [place] [address], [place] [address] Nov, [facility] [address] [id number] [address] [place] [address], [place] [address] Nov, [facility] [address] [id number] [address] [place] [address], [place] [address] Oct, [facility] [address] [id number] [address] [place] [address], [place] [address] Oct, [facility] [address] [id number] [address] [place] [address], [place] [address] 24 Oct, 2013 [facility] [address] [id number] [address] [place] [address], [place] [address] 24 Oct, 2013 [facility] [address] [id number] [address] [place] [address], [place] [address] 15 Oct, 2013 [facility] [address] [id number] [address] [place] [address], [place] [address] 15 Oct, 2013 [facility] [address] [id number] [address] [place] [address], [place] [address] 04 Oct, 2013 [facility] [address] [id number] [address] [place] [address], [place] [address] 04 Oct, 2013 [facility] [address] [id number] [address] [place] [address], [place] [address] 15 Sep, 2013 [facility] [address] [id number] [address] [place] [address], [place] [address] 15 Sep, 2013 [facility] [address] [id number] [facility] [place] [address] Sep, [facility] [address] [id number] [facility] [place] [address] Sep, [facility] [address] [id number] [facility] [place] [address] Aug, [facility] [address] [id number] [facility] [place] [address] Aug, [facility] [address] [id number] [facility] [place] [address] Aug, [facility] [address] [id number] [facility] [place] [address] Aug, [facility] [address] [id number] [address] [place] [address], [place] [address] Aug, [facility] [address] [id number] [address] [place] [address], [place] [address] Aug, [facility] [address] [id number] [address] [place] [address], [place] [address] Aug, [facility] [address] [id number] [address] [place] [address], [place] [address] Aug, [facility] [address] [id number] [address] [place] [address], [place] [address] Jul, [facility] [address] [id number] [address] [place] [address], [place] [address] Jul, [facility] [address] [id number] [address] [place] [address], [place] [address] Jul, [facility] [address] [id number] [address] [place] [address], [place] [address] Jul, [facility] [address] [id number] [address] [place] [address], [place] [address] Jul, [facility] [address] [id number] [address] [place] [address], [place] [address] Jul, [facility] [address] [id number] [facility] [place] [address] Jul, [facility] [address] [id number] [address] [place] [address], [place] [address] Jul, [facility] [address] [id number] [address] [place] [address], [place] [address] Jul, [facility] [address] [id number] [address] [place] [address], [place] [address] Jul, [facility] [address] [id number] [address] [place] [address], [place] [address] Jul, [facility] [address] [id number] [address] [place] [address], [place] [address] Jul, [facility] [address] [id number] [address] [place] [address], [place] [address] Jul, [facility] [address] [id number] [address] [place] [address], [place] [address] Jul, [facility] [address] [id number] [address] [place] [address], [place] [address] Jul, [facility] [address] [id number] [address] [place] [address], [place] [address] Jul, [facility] [address] [id number] [address] [place] [address], [place] [address] Jul, [facility] [address] [id number] [address] [place] [address], [place] [address] June, [facility] [address] [id number] [address] [place] [address], [place] [address] June, [facility] [address] [id number] [address] [place] [address], [place] [address] May, [facility] [address] [id number] [address] [place] [address], [place] [address] May, [facility] [address] [id number] [facility] [place] [address] 10 May, 2013 [facility] [address] [id number] [address] [place] [address], [place] [address] 10 May, 2013 [facility] [address] [id number] [facility] [place] [address] 17 Apr, 2013 [facility] [address] [id number] [address] [place] [address], [place] [address] 17 Apr, 2013 [facility] [address] [id number] [address] [place] [address], [place] [address] 13 Apr, 2013 [facility] [address] [id number] [address] [place] [address], [place] [address] 13 Apr, 2013 [facility] [address] [id number] [address] [place] [address], [place] [address] 11 Apr, 2013 [facility] [address] [id number] [address] [place] [address], [place] [address] 11 Apr, 2013 [facility] [address] [id number] [address] [place] [address], [place] [address] 10 Apr, 2013 [facility] [address] [id number] [address] [place] [address], [place] [address] 13 Mar, 2013 [facility] [address] [id number] [address] [place] [address], [place] [address] 13 Mar, 2013 [facility] [address] [id number] [address] [place] [address], [place] [address] Mar, [facility] [address] [id number] [address] [place] [address], [place] [address] Mar, [facility] [address] [id number] [address] [place] [address], [place] [address] Feb, [facility] [address] [id number] [address] [place] [address], [place] [address] Feb, [facility] [address] [id number] [address] [place] [address], [place] [address] Feb, [facility] [address] [id number] [address] [place] [address], [place] [address] Feb, [facility] [address] [id number] [address] [place] [address], [place] [address] Jan, [facility] [address] [id number] [address] [place] [address], [place] [address] Jan, [facility] [address] [id number] [address] [place] [address], [place] [address] Jan, [facility] [address] [id number] [address] [place] [address], [place] [address] Jan, [facility] [address] [id number] [address] [place] [address], [place] [address] Dec, [facility] [address] [id number] [address] [place] [address], [place] [address] Dec, [facility] [address] [id number] [address] [place] [address] Dec, [facility] [address] [id number] [address] [place] [address], [place] [address] Dec, [facility] [address] [id number] [address] [place] [address] Dec, [facility] [address] [id number] [address] [place] [address] Nov, [facility] [address] [id number] [address] [place] [address] Nov, [facility] [address] [id number] [address] [place] [address] Nov, [facility] [address] [id number] [address] [place] [address] Nov, [facility] [address] [id number] [address] [place] [address] Nov, [facility] [address] [id number] [address] [place] [address] Nov, [facility] [address] [id number] [address] [place] [address], [place] [address] Nov, [facility] [address] [id number] [address] [place] [address], [place] [address] Nov, [facility] [address] [id number] [address] [place] [address], [place] [address] Oct, [facility] [address] [id number] [address] [place] [address], [place] [address] Oct, [facility] [address] [id number] [address] [place] [address], [place] [address] Sep, [facility] [address] [id number] [address] [place] [address], [place] [address] Sep, [facility] [address] [id number] [address] [place] [address], [place] [address] Sep, [facility] [address] [id number] [address] [place] [address], [place] [address] Sep, [facility] [address] [id number] [address] [place] [address], [place] [address] Sep, [facility] [address] [id number] [address] [place] [address], [place] [address] Sep, [facility] [address] [id number] [address] [place] [address], [place] [address] Sep, [facility] [address] [id number] [address] [place] [address], [place] [address] Aug, [facility] [address] [id number] [address] [place] [address], [place] [address] Aug, [facility] [address] [id number] [address] [place] [address], [place] [address] Aug, [facility] [address] [id number] [address] [place] [address], [place] [address] Aug, [facility] [address] [id number] [facility] [place] [address] 16 Aug, 2012 [facility] [address] [id number] [address] [place] [address], [place] [address] 15 Aug, 2012 [facility] [address] [id number] [address] [place] [address], [place] [address] 05 Aug, 2012 [facility] [address] [id number] [address] [place] [address], [place] [address] Aug, [facility] [address] [id number] [address] [place] [address], [place] [address] Jul, [facility] [address] [id number] [address] [place] [address], [place] [address] Jul, [facility] [address] [id number] [address] [place] [address], [place] [address] Jul, [facility] [address] [id number] [address] [place] [address], [place] [address] Jul, [facility] [address] [id number] [address] [place] [address], [place] [address] June, [facility] [address] [id number] [address] [place] [address], [place] [address] June, [facility] [address] [id number] [address] [place] [address], [place] [address] June, [facility] [address] [id number] [address] [place] [address], [place] [address] June, [facility] [address] [id number] [address] [place] [address], [place] [address] June, [facility] [address] [id number] [address] [place] [address], [place] [address] May, [facility] [address] [id number] [address] [place] [address], [place] [address] May, [facility] [address] [id number] [address] [place] [address], [place] [address] 16 May, 2012 [facility] [address] [id number] [address] [place] [address], [place] [address] 04 May, 2012 [facility] [address] [id number] [address] [place] [address], [place] [address] 26 Apr, 2012 [facility] [address] [id number] [address] [place] [address], [place] [address] 25 Apr, 2012 [facility] [address] [id number] [address] [place] [address], [place] [address] 08 Apr, 2012 [facility] [address] [id number] [address] [place] [address], [place] [address] 07 Apr, 2012 [facility] [address] [id number] [address] [place] [address], [place] [address] 21 Mar, 2012 [facility] [address] [id number] [address] [place] [address], [place] [address] 15 Mar, 2012 [facility] [address] [id number] [address] [place] [address], [place] [address] 13 Mar, 2012 [facility] [address] [id number] [address] [place] [address], [place] [address] 07 Mar, 2012 [facility] [address] [id number] [address] [place] [address], [place] [address] 07 Feb, 2012 [facility] [address] [id number] [address] [place] [address], [place] [address] Jan, [facility] [address] [id number] [address] [place] [address], [place] [address] Jan, [facility] [address] [id number] [address] [place] [address], [place] [address] Jan, [facility] [address] [id number] [address] [place] [address], [place] [address] Dec, [facility] [address] [id number] [address] [place] [address], [place] [address] Dec, [facility] [address] [id number] [address] [place] [address], [place] [address] 28 Dec, 2011 [facility] [address] [id number] [address] [place] [address], [place] [address] 28 Dec, 2011 [facility] [address] [id number] [address] [place] [address], [place] [address] 15 Dec, 2011 [facility] [address] [id number] [address] [place] [address], [place] [address] 15 Dec, 2011 [facility] [address] [id number] [address] [place] [address], [place] [address] 14 Dec, 2011 [facility] [address] [id number] [address] [place] [address], [place] [address] 07 Dec, 2011 [facility] [address] [id number] [address] [place] [address], [place] [address] Dec, [facility] [address] [id number] [address] [place] [address], [place] [address] 17 Nov, 2011 [facility] [address] [id number] [address] [place] [address], [place] [address] 17 Nov, 2011 [facility] [address] [id number] [address] [place] [address], [place] [address] Nov, [facility] [address] [id number] [address] [place] [address], [place] [address] Nov, [facility] [address] [id number] [address] [place] [address], [place] [address] 10 Nov, 2011 [facility] [address] [id number] [address] [place] [address], [place] [address] 10 Nov, 2011 [facility] [address] [id number] [address] [place] [address], [place] [address] 12 Oct, 2011 [facility] [address] [id number] [address] [place] [address], [place] [address] 16 Sep, 2011 [facility] [address] [id number] [address] [place] [address], [place] [address] Sep, [facility] [address] [id number] [address] [place] [address], [place] [address] Aug, [facility] [address] [id number] [address] [place] [address], [place] [address] Aug, [facility] [address] [id number] [address] [place] [address], [place] [address] Aug, [facility] [address] [id number] [address] [place] [address], [place] [address] Aug, [facility] [address] [id number] [address] [place] [address], [place] [address] Aug, [facility] [address] [id number] [address] [place] [address], [place] [address] Jul, [facility] [address] [id number] [address] [place] [address], [place] [address] Jul, [facility] [address] [id number] [address] [place] [address], [place] [address] June, [facility] [address] [id number] [address] [place] [address], [place] [address] June, [facility] [address] [id number] [address] [place] [address], [place] [address] June, [facility] [address] [id number] [address] [place] [address], [place] [address] June, [facility] [address] [id number] [address] [place] [address], [place] [address] May, [facility] [address] [id number] [address] [place] [address], [place] [address] Apr, [facility] [address] [id number] [address] [place] [address], [place] [address] Apr, [facility] [address] [id number] [address] [place] [address], [place] [address] Apr, [facility] [address] [id number] [address] [place] [address], [place] [address] 08 Apr, 2011 [facility] [address] [id number] [address] [place] [address], [place] [address] Apr, [facility] [address] [id number] [address] [place] [address], [place] [address] Mar, [facility] [address] [id number] [address] [place] [address], [place] [address] Mar, [facility] [address] [id number] [address] [place] [address], [place] [address] Mar, [facility] [address] [id number] [address] [place] [address], [place] [id number] Feb, [facility] [address] [id number] [address] [place] [address], [place] [address] Feb, [facility] [address] [id number] [address] [place] [address], [place] [address] Feb, [facility] [address] [id number] [address] [place] [address], [place] [address] Feb, [facility] [address] [id number] [address] [place] [address], [place] [address] Feb, [facility] [address] [id number] [address] [place] [address], [place] [address] Feb, [facility] [address] [id number] [address] [place] [address], [place] [address] Jan, [facility] [address] [id number] [address] [place] [address], [place] [address] Jan, [facility] [address] [id number] [address] [place] [address], [place] [address] Jan, [facility] [address] [id number] [address] [place] [address], [place] [address] Jan, [facility] [address] [id number] [address] [place] [address], [place] [address] Jan, [facility] [address] [id number] [address] [place] [address], [place] [address] 16 Jul, 2010 [facility] [address] [id number] [address] [place] [address], [place] [address] June, [facility] [address] [id number] [address] [place] [address], [place] [address] 13 Feb, 2010 [facility] [address] [id number] [address] [place] [address], [place] [address] 20 Jan, 2010 [facility] [address] [id number] [address] [place] [address], [place] [address] Sep, [facility] [address] [id number] [address] [place] [address], [place] [address] 20 Aug, 2009 [facility] [address] [id number] [address] [place] [address], [place] [address] 14 May, 2009 [facility] [address] [id number] [address] [place] [address], [place] [address] Apr, [facility] [address] [id number] [address] [place] [address], [place] [address] Jan, [facility] [address] [id number] [address] [place] [address], [place] [address] Jan, [facility] [address] [id number] [address] [place] [address], [place] [address] Jan, [facility] [address] [id number] [address] [place] [address], [place] [address] Dec, [facility] [address] [id number] [address] [place] [address], [place] [address] Dec, [facility] [address] [id number] [address] [place] [address], [place] [address] Nov, [facility] [address] [id number] [address] [place] [address], [place] [address] Nov, [facility] [address] [id number] [address] [place] [address], [place] [address] Nov, IMMUNIZATIONS No Known Immunizations SOCIAL HISTORY [...] Surgical History rectocele/cystocele repair, pessary fitt ed ([facility]) 05/2013 Surgical History Suspicious lesion removal 2015 Surgical History heart cath 03/03/2019 Hospitalization History [facility] acute gastoentereritis, dehydrati on 06/06 Hospitalization History Heart Cath 2013 Hospitalization History ER visit- 09/2018
--- OUTSIDE RECORDS SUMMARY | 2019-07-19 09:28 | XMS REPORT ---
Author Author Juanita PATIÑO Organization [facility] Address [address] [place] [address] Care Team Providers Care Tub Tender Name Role Phone FUENTES PATIÑO Unavailable PROBLEMS Type Condition ICD9-CM Code ZHC90-TF Code Onset Dates Condition S tatus SNOMED Code Problem Episodic cluster headache, not intractable G44.019 Active 665021026 Problem Angina pectoris, unspecified I20.9 A ctive 757088888 Problem Acute bilateral low back pain with left-sided sciatica M54.42 Active 27513634 Problem Other chronic pain G89.29 Active 8 3351125 Problem Lumbago with sciatica, right side M54.41 Active 883753008 Problem Lumbago with sciatica, left side M54.42 Active 752639989 Problem COPD exacerbation J44.1 Active 29 2856363291469 Problem Anxiety F41.9 Active 20270840 Problem Major depressive disorder, recurrent, mild F33.0 Active 723598993 Problem History of diabetes mellitus, type II Z86.39 Active 387984040 Problem Other chronic pain G89.29 Active 8 6684093 Problem Hyperlipidemia, unspecified hyperlipidemia type E7 8.5 Active 68700315 Problem 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.0 Active 452773022 Problem Chronic obstructive pulmonary disease, unspecified COPD ty pe J44.9 Active 21057368 Problem Essential hypertension I10 Active 61569117 Problem Seasonal allergic rhinitis due to pollen J30.1 Active 74593738 Problem Atherosclerotic heart diseas e of [place] coronary artery without angina pectoris I25.10 Active 3685716030895 Problem Hypoglycemia E16.2 Active 7347081 03 Problem 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 Active 624820113827 7 Problem Primary osteoarthritis of right knee M17.11 Active [id number] Problem Dysphagia, unspecified type R13.10 Ac tive 35595058 ALLERGIES No Information ENCOUNTERS Encounter Location Date Diagnosis [place] [address] [address] Jul, [place] [address] [address] May, Nail hypertrophy L60.2 ; 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 and Self-care deficit for grooming and hygiene Z74.1 [place] [address] [address] May, [place] [address] [address] 30 Apr, 2019 Dysphagia, unspecified type R13.10 ; Coronary artery disease [place] artery [place] heart with stable angina pectoris I25.118 and Breast cancer screening by mammogram Z12.31 [place] [address] [address] 10 Apr, 2019 Low back pain, unspecified b ack pain laterality, with sciatica presence unspecified M54.5 ; Onychomycosis B35.1 ; Other chronic pain G89.29 ; Chronic obstructive pulmonary disease, unspecified COPD type J44.9 ; Essential hypertension I10 ; Family history of diabetes mellitus Z83.3 ; Hyperlipidemia, unspecified hyperlipidemia type E78.5 ; Anxiety F41.9 and 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 [place] [address] [place] [id number] [place] [address] Mar, Primary osteoarthritis of ri ght knee M17.11 [place] [address] [place] [id number] [place] [address] Mar, [place] [address] [address] Feb, Onychomycosis B35.1 ; Nail h ypertrophy L60.2 and Self-care deficit for grooming and hygiene Z74.1 [place] [id number] [place] [address] Jan, Posterior right knee pain M2 5.561 ; Pain in left leg M79.605 ; Pain in right leg M79.604 ; Coronary artery disease of [place] artery [place] heart with stable angina pectoris I25.118 and Encounter for immunization Z23 [facility] [address] [facility] [id number] [place] [address] Dec, Nail hypertrophy L60.2 ; Lakshmi chomycosis B35.1 and Self-care deficit for grooming and hygiene Z74.1 [place] [address] [facility] [id number] [place] [address] Oct, [place] [address] [facility] [id number] [place] [address] Sep, Other chest pain R07.89 [place] [address] [place] [id number] [place] [address] Sep, [facility] [address] [place] [id number] [place] [address] Sep, Cellulitis of groin L03.314 [place] [address] [place] [id number] [place] [address] Sep, Nail hypertrophy L60.2 and S elf-care deficit for grooming and hygiene Z74.1 [facility] [address] [place] [id number] [place] [address] Aug, [place] [address] [facility] [id number] [place] [phone] Aug, Hypoglycemia E16.2 ; Nonintr actable episodic headache, unspecified headache type R51 and Candidiasis of breast B37.89 [facility] [address] [facility] [id number] [address] [place] [address] Aug, Nail hypertrophy L60.2 and S elf-care deficit for grooming and hygiene Z74.1 [place] [address] [facility] [id number] [address] [place] [address] June, [facility] [address] [facility] [id number] [address] [place] [address] May, Bee sting, accidental or uni ntentional, initial encounter T63.441A [place] [id number] [address] Apr, Primary osteoarthritis invol ving multiple joints M15.0 ; Angina pectoris, unspecified I20.9 ; History of diabetes mellitus, type II Z86.39 and Chronic obstructive pulmonary disease, unspecified COPD type J44.9 [place] [address] [address] Apr, Nail hypertrophy L60.2 and S [facility] deficit for grooming and hygiene Z74.1 [place] [address] [address] Mar, [facility] [address] [address] Mar, Low back pain M54.5 [place] [address] [address] Mar, [facility] [address] [place] [id number] [place] [address] Feb, [place] [address] [address] Feb, [place] [address] [address] Feb, Encounter for Medicare annua l wellness exam Z00.00 ; Major depressive disorder, recurrent, mild F33.0 ; Chronic obstructive pulmonary disease, unspecified COPD type J44.9 ; Atherosclerotic heart disease of [place] coronary artery without angina pectoris I25.10 ; Primary osteoarthritis involving multiple joints M15.0 ; Angina pectoris, unspecified I20.9 and 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 [place] [id number] [place] [id number] [address] [place] [address] Jan, [facility] [address] [address] Jan, [facility] [address] [place] [address] Dec, Chronic obstructive pulmonar y disease, unspecified COPD type J44.9 ; Low back pain M54.5 ; Other chronic pain G89.29 and Moderate episode of recurrent major depressive disorder F33.1 [place] [address] [place] [address] Nov, [place] [address] [place] [id number] [place] [address] Nov, Encounter for immunization Z 23 [place] [address] [address] Nov, Allergic rhinitis due to ned iona, unspecified seasonality J30.1 ; Primary osteoarthritis involving multiple joints M15.0 and Encounter for immunization Z23 [place] [address] [address] Oct, Nail hypertrophy L60.2 and S elf-care deficit for hygiene R46.0 [facility] [address] [address] 05 Oct, 2017 Chest congestion R09.89 ; So re throat J02.9 and Cough R05 [place] [address] [place] [id number] [place] [address] Sep, [facility] [address] [place] [id number] [address] [place] [address] Aug, Low back pain M54.5 ; Other chronic pain G89.29 ; Pain in right knee M25.561 ; Pain in left knee M25.562 and Rash R21 [place] [address] [place] [id number] [address] [place] [address] Aug, Nail hypertrophy L60.2 and S elf-care deficit for hygiene R46.0 [facility] [address] [place] [id number] [address] [place] [address] June, Hypertrophy of nail L60.2 an d Self-care deficit for hygiene R46.0 [facility] [address] [facility] [id number] [address] [place] [address] June, [facility] [address] [facility] [id number] [address] [place] [address] June, COPD exacerbation J44.1 [facility] [address] [facility] [id number] [address] [place] [address] May, [facility] [address] [facility] [id number] [address] [place] [address] Apr, Seasonal allergic rhinitis d ue to pollen J30.1 ; Encounter for immunization Z23 ; COPD exacerbation J44.1 ; Encounter for screening mammogram for breast cancer Z12.31 and Colon cancer screening Z12.11 [place] [address] [place] [id number] [place] [address] Apr, [place] [address] [place] [id number] [place] [address] Feb, Lumbago with sciatica, right side M54.41 ; Lumbago with sciatica, left side M54.42 ; Other chronic pain G89.29 ; Left hip pain M25.552 and Anxiety F41.9 [facility] [address] [place] [id number] [address] [place] [address] Jan, History of asthma Z87.09 ; C OPD exacerbation J44.1 and Acute non-recurrent maxillary sinusitis J01.00 [facility] [address] [facility] [id number] [address] [place] [address] Jan, Other chronic pain G89.29 an d Acute bilateral low back pain with left-sided sciatica M54.42 [facility] [address] [facility] [id number] [address] [place] [address] 14 Jan, 2017 Other chronic pain G89.29 an d Acute bilateral low back pain with left-sided sciatica M54.42 [facility] [address] [address] Dec, Trochanteric bursitis of lef t hip M70.62 ; Left hip pain M25.552 and Other chronic pain G89.29 [facility] [address] [address] Nov, Local reaction to insect sti ng, accidental or unintentional, initial encounter T63.481A and Acute dermatitis L30.9 [place] [address] [address] Nov, Breast cancer screening Z12. 31 [place] [address] [address] Nov, Acute bilateral low back rangel n with left-sided sciatica M54.42 and Low back pain, unspecified back pain laterality, with sciatica presence unspecified M54.5 [facility] [address] [address] Oct, Acute bilateral low back rangel n with left-sided sciatica M54.42 [place] [address] [address] Sep, Low back pain, unspecified b ack pain laterality, with sciatica presence unspecified M54.5 [place] [address] [address] Sep, [place] [address] [address] Aug, Nail hypertrophy L60.2 ; Lakshmi chomycosis B35.1 and Self-care deficit for hygiene R46.0 [place] [address] [address] Aug, [place] [address] [address] Aug, [facility] [address] [address] Jul, Rash R21 [facility] [address] [id number] [address] [place] [address] Jul, [facility] [address] [facility] [id number] [address] [place] [address] Jul, Low back pain, unspecified b ack pain laterality, with sciatica presence unspecified M54.5 [facility] [address] [id number] [address] [place] [address] June, Nail hypertrophy L60.2 ; Marilee f-care deficit for hygiene R46.0 and Other chronic pain G89.29 [place] [address] [facility] [id number] [address] [place] [address] June, Low back pain, unspecified b ack pain laterality, with sciatica presence unspecified M54.5 [place] [address] [facility] [id number] [address] [place] [address] May, [facility] [address] [id number] [address] [place] [address] May, [facility] [address] [facility] [id number] [address] [place] [address] May, [facility] [address] [facility] [id number] [address] [place] [address] May, Low back pain, unspecified b ack pain laterality, with sciatica presence unspecified M54.5 [facility] [address] [facility] [id number] [address] [place] [address] Apr, Breast pain, left N64.4 ; Le ft arm pain M79.602 and Family history of diabetes mellitus Z83.3 [facility] [address] [id number] [address] [place] [address] Apr, Low back pain, unspecified b ack pain laterality, with sciatica presence unspecified M54.5 [place] [address] [facility] [id number] [address] [place] [address] Apr, [facility] [address] [id number] [address] [place] [address] 28 Mar, 2016 Onychomycosis B35.1 and Self -care deficit for hygiene R46.0 [facility] [address] [id number] [address] [place] [address] 17 Mar, 2016 Low back pain, unspecified b ack pain laterality, with sciatica presence unspecified M54.5 [facility] [address] [id number] [address] [place] [address] 14 Mar, 2016 Pain in left shoulder M25.51 2 and Other chronic pain G89.29 [facility] [address] [id number] [address] [place] [address] 13 Mar, 2016 Arthralgia, unspecified join t M25.50 [facility] [address] [id number] [address] [place] [address] 06 Mar, 2016 [facility] [address] [id number] [address] [place] [address] Feb, Low back pain, unspecified b ack pain laterality, with sciatica presence unspecified M54.5 [facility] [address] [id number] [address] [place] [address] Feb, [facility] [address] [id number] [address] [place] [id number] Feb, Dental examination Z01.20 [facility] [address] [id number] [address] [place] [id number] Feb, Dental examination Z01.20 [facility] [address] [id number] [address] [place] [address] Feb, Cramp of both lower extremit ies R25.2 [facility] [address] [id number] [address] [place] [address] Feb, [facility] [address] [id number] [address] [place] [address] Jan, Hypoxemia R09.02 ; Episodic cluster headache, not intractable G44.019 and Cramp of both lower extremities R25.2 [place] [address] [place] [id number] [place] [address] Jan, [facility] [address] [place] [id number] [place] [address] Jan, Low back pain, unspecified b ack pain laterality, with sciatica presence unspecified M54.5 [place] [address] [address] Jan, Hypertrophy of nail L60.2 ; Onychomycosis B35.1 and Self-care deficit for hygiene R46.0 [place] [address] [address] Jan, Low back pain, unspecified b ack pain laterality, with sciatica presence unspecified M54.5 [place] [address] [address] Dec, Low back pain, unspecified b ack pain laterality, with sciatica presence unspecified M54.5 [facility] [address] [address] Dec, Bug bite with infection, ini tial encounter W57.XXXA [place] [address] [address] Nov, Low back pain, unspecified b ack pain laterality, with sciatica presence unspecified M54.5 [place] [id number] [place] [address] Nov, [place] [address] [address] Nov, Chronic obstructive pulmonar y disease, unspecified COPD type J44.9 [facility] [address] [address] Nov, [facility] [address] [facility] [id number] [address] [place] [address] Oct, [facility] [address] [facility] [id number] [address] [place] [address] Oct, Onychomycosis B35.1 and Ingr own nail L60.0 [place] [address] [facility] [id number] [address] [place] [address] Oct, Low back pain, unspecified b ack pain laterality, with sciatica presence unspecified M54.5 [place] [address] [facility] [id number] [address] [place] [address] Sep, [place] [address] [place] [id number] [address] [place] [address] Sep, Low back pain, unspecified b ack pain laterality, with sciatica presence unspecified M54.5 [place] [address] [place] [id number] [place] [address] Aug, [place] [address] [place] [id number] [address] [place] [address] Aug, Cramp of both lower extremit ies R25.2 ; Breast cancer screening Z12.39 ; Hyperlipidemia, unspecified hyperlipidemia type E78.5 and Atypical mole L81.9 [place] [address] [place] [id number] [place] [address] Aug, Chronic obstructive pulmonar y disease, unspecified COPD type J44.9 [place] [address] [facility] [id number] [address] [place] [address] Aug, Low back pain, unspecified b ack pain laterality, with sciatica presence unspecified M54.5 [place] [address] [facility] [id number] [address] [place] [address] Aug, Atherosclerotic heart diseas e of [place] coronary artery without angina pectoris I25.10 [place] [address] [place] [id number] [address] [place] [address] Jul, [facility] [address] [id number] [address] [place] [address] Jul, [facility] [address] [id number] [address] [place] [address] Jul, Allergic rhinitis, unspecifi ed allergic rhinitis type J30.9 [facility] [address] [id number] [address] [place] [address] Jul, Low back pain, unspecified b ack pain laterality, with sciatica presence unspecified M54.5 [facility] [address] [id number] [address] [place] [address] 07 Jul, 2015 Post-concussion headache G44 .309 and Arthralgia, unspecified joint M25.50 [place] [address] [id number] [address] [place] [address] June, Chronic obstructive pulmonar y disease, unspecified COPD type J44.9 [facility] [address] [id number] [address] [place] [address] June, [facility] [address] [id number] [address] [place] [address] May, [facility] [address] [id number] [address] [place] [address] May, [facility] [address] [id number] [address] [place] [address] 30 Apr, 2015 Hip pain 719.45 and Atherosc lerotic heart disease of [place] coronary artery without angina pectoris I25.10 [facility] [address] [id number] [address] [place] [address] Apr, History of self-care deficit Z86.59 ; Hypertrophy of nail L60.2 and Onychomycosis B35.1 [facility] [address] [id number] [address] [place] [address] Apr, [facility] [address] [id number] [address] [place] [address] Apr, Gastroenteritis K52.9 [facility] [address] [id number] [address] [place] [address] Mar, [facility] [address] [id number] [address] [place] [address] Mar, [facility] [address] [id number] [address] [place] [address] Mar, [facility] [address] [id number] [address] [place] [address] Mar, Acute pain due to injury G89 .11 and Other chronic pain G89.29 [facility] [address] [id number] [address] [place] [address] Mar, [facility] [address] [id number] [address] [place] [address] Mar, [facility] [address] [id number] [address] [place] [address] Mar, [facility] [address] [id number] [address] [place] [address] Mar, [facility] [address] [facility] [id number] [address] [place] [address] Feb, Low back pain, unspecified b ack pain laterality, with sciatica presence unspecified M54.5 [facility] [address] [id number] [address] [place] [address] Feb, [facility] [address] [id number] [address] [place] [address] Jan, [facility] [address] [facility] [id number] [address] [place] [address] Jan, Low back pain, unspecified b ack pain laterality, with sciatica presence unspecified M54.5 [facility] [address] [id number] [address] [place] [address] Jan, Other chronic pain G89.29 an d Acute pain due to injury G89.11 [facility] [address] [id number] [address] [place] [address] Dec, [facility] [address] [id number] [address] [place] [address] Nov, Essential hypertension I10 a nd Viral infection, unspecified B34.9 [facility] [address] [id number] [address] [place] [address] Nov, [facility] [address] [id number] [address] [place] [phone] Nov, [facility] [address] [id number] [address] [place] [address] 30 Oct, 2014 [facility] [address] [id number] [address] [place] [address] Oct, [facility] [address] [id number] [address] [place] [address] Oct, [facility] [address] [id number] [address] [place] [id number] Oct, [facility] [address] [id number] [address] [place] [phone] Sep, [facility] [address] [id number] [address] [place] [id number] Sep, Hypertrophy of nail 703.8 an d Self-care deficit for hygiene V40.39 [facility] [address] [id number] [address] [place] [id number] Sep, [facility] [address] [address] [id number] [address] [place] [address] Sep, [facility] [address] [id number] [address] [place] [address] Aug, [facility] [address] [id number] [address] [place] [address] Jul, Onychomycosis 110.1 and Ingr own nail 703.0 [facility] [address] [id number] [address] [place] [address] Jul, Other screening mammogram V7 6.12 [facility] [address] [id number] [address] [place] [address] Jul, [facility] [address] [id number] [address] [place] [address] Jul, Hip pain 719.45 ; Visual dis turbance 368.9 and Conjunctivitis 372.30 [facility] [address] [id number] [address] [place] [address] June, [facility] [address] [id number] [address] [place] [address] June, [facility] [address] [id number] [address] [place] [address] June, [facility] [address] [id number] [address] [place] [address] June, [facility] [address] [id number] [address] [place] [address] May, [facility] [address] [id number] [address] [place] [address] May, [facility] [address] [id number] [address] [place] [address] Apr, [facility] [address] [id number] [address] [place] [address] Apr, [facility] [address] [id number] [address] [place] [address] Apr, [facility] [address] [id number] [address] [place] [address] Apr, [facility] [address] [id number] [address] [place] [address] Mar, [facility] [address] [id number] [address] [place] [address], [place] [address] Mar, [facility] [address] [id number] [address] [place] [address], [place] [address] Feb, [facility] [address] [id number] [address] [place] [address], [place] [address] Feb, [facility] [address] [id number] [address] [place] [address], [place] [address] Feb, [facility] [address] [id number] [address] [place] [address], [place] [address] Jan, [facility] [address] [id number] [address] [place] [address], [place] [address] Jan, [facility] [address] [id number] [address] [place] [address], [place] [address] Jan, [facility] [address] [id number] [address] [place] [address], [place] [address] Jan, [facility] [address] [id number] [address] [place] [address], [place] [address] Jan, [facility] [address] [id number] [address] [place] [address], [place] [address] Jan, [facility] [address] [id number] [address] [place] [address] Dec, [facility] [address] [id number] [address] [place] [address] Nov, [facility] [address] [id number] [address] [place] [address], [place] [address] Nov, [facility] [address] [id number] [address] [place] [address], [place] [address] Nov, [facility] [address] [id number] [address] [place] [address] Nov, [facility] [address] [id number] [address] [place] [address] Nov, [facility] [address] [id number] [address] [place] [address], [place] [address] Nov, [facility] [address] [id number] [address] [place] [address], [place] [address] Nov, [facility] [address] [id number] [address] [place] [address], [place] [address] Nov, [facility] [address] [id number] [address] [place] [address], [place] [address] Nov, [facility] [address] [id number] [address] [place] [address], [place] [address] Nov, [facility] [address] [id number] [address] [place] [address], [place] [address] Oct, [facility] [address] [id number] [address] [place] [address], [place] [address] Oct, [facility] [address] [id number] [address] [place] [address], [place] [address] 24 Oct, 2013 [facility] [address] [id number] [address] [place] [address], [place] [address] 24 Oct, 2013 [facility] [address] [id number] [address] [place] [address], [place] [address] 15 Oct, 2013 [facility] [address] [id number] [address] [place] [address], [place] [address] 15 Oct, 2013 [facility] [address] [id number] [address] [place] [address], [place] [address] 04 Oct, 2013 [facility] [address] [id number] [address] [place] [address], [place] [address] 04 Oct, 2013 [facility] [address] [id number] [address] [place] [address], [place] [address] 15 Sep, 2013 [facility] [address] [id number] [address] [place] [address], [place] [address] 15 Sep, 2013 [facility] [address] [id number] [facility] [place] [address] Sep, [facility] [address] [id number] [facility] [place] [address] Sep, [facility] [address] [id number] [facility] [place] [address] Aug, [facility] [address] [id number] [facility] [place] [address] Aug, [facility] [address] [id number] [facility] [place] [address] Aug, [facility] [address] [id number] [facility] [place] [address] Aug, [facility] [address] [id number] [address] [place] [address], [place] [address] Aug, [facility] [address] [id number] [address] [place] [address], [place] [address] Aug, [facility] [address] [id number] [address] [place] [address], [place] [address] Aug, [facility] [address] [id number] [address] [place] [address], [place] [address] Aug, [facility] [address] [id number] [address] [place] [address], [place] [address] Jul, [facility] [address] [id number] [address] [place] [address], [place] [address] Jul, [facility] [address] [id number] [address] [place] [address], [place] [address] Jul, [facility] [address] [id number] [address] [place] [address], [place] [address] Jul, [facility] [address] [id number] [address] [place] [address], [place] [address] Jul, [facility] [address] [id number] [address] [place] [address], [place] [address] Jul, [facility] [address] [id number] [facility] [place] [address] Jul, [facility] [address] [id number] [address] [place] [address], [place] [address] Jul, [facility] [address] [id number] [address] [place] [address], [place] [address] Jul, [facility] [address] [id number] [address] [place] [address], [place] [address] Jul, [facility] [address] [id number] [address] [place] [address], [place] [address] Jul, [facility] [address] [id number] [address] [place] [address], [place] [address] Jul, [facility] [address] [id number] [address] [place] [address], [place] [address] Jul, [facility] [address] [id number] [address] [place] [address], [place] [address] Jul, [facility] [address] [id number] [address] [place] [address], [place] [address] Jul, [facility] [address] [id number] [address] [place] [address], [place] [address] Jul, [facility] [address] [id number] [address] [place] [address], [place] [address] Jul, [facility] [address] [id number] [address] [place] [address], [place] [address] June, [facility] [address] [id number] [address] [place] [address], [place] [address] June, [facility] [address] [id number] [address] [place] [address], [place] [address] May, [facility] [address] [id number] [address] [place] [address], [place] [address] May, [facility] [address] [id number] [facility] [place] [address] 10 May, 2013 [facility] [address] [id number] [address] [place] [address], [place] [address] 10 May, 2013 [facility] [address] [id number] [facility] [place] [address] 17 Apr, 2013 [facility] [address] [id number] [address] [place] [address], [place] [address] 17 Apr, 2013 [facility] [address] [id number] [address] [place] [address], [place] [address] 13 Apr, 2013 [facility] [address] [id number] [address] [place] [address], [place] [address] 13 Apr, 2013 [facility] [address] [id number] [address] [place] [address], [place] [address] 11 Apr, 2013 [facility] [address] [id number] [address] [place] [address], [place] [address] 11 Apr, 2013 [facility] [address] [id number] [address] [place] [address], [place] [address] 10 Apr, 2013 [facility] [address] [id number] [address] [place] [address], [place] [address] 13 Mar, 2013 [facility] [address] [id number] [address] [place] [address], [place] [address] 13 Mar, 2013 [facility] [address] [id number] [address] [place] [address], [place] [address] Mar, [facility] [address] [id number] [address] [place] [address], [place] [address] Mar, [facility] [address] [id number] [address] [place] [address], [place] [address] Feb, [facility] [address] [id number] [address] [place] [address], [place] [address] Feb, [facility] [address] [id number] [address] [place] [address], [place] [address] Feb, [facility] [address] [id number] [address] [place] [address], [place] [address] Feb, [facility] [address] [id number] [address] [place] [address], [place] [address] Jan, [facility] [address] [id number] [address] [place] [address], [place] [address] Jan, [facility] [address] [id number] [address] [place] [address], [place] [address] Jan, [facility] [address] [id number] [address] [place] [address], [place] [address] Jan, [facility] [address] [id number] [address] [place] [address], [place] [address] Dec, [facility] [address] [id number] [address] [place] [address], [place] [address] Dec, [facility] [address] [id number] [address] [place] [address] Dec, [facility] [address] [id number] [address] [place] [address], [place] [address] Dec, [facility] [address] [id number] [address] [place] [address] Dec, [facility] [address] [id number] [address] [place] [address] Nov, [facility] [address] [id number] [address] [place] [address] Nov, [facility] [address] [id number] [address] [place] [address] Nov, [facility] [address] [id number] [address] [place] [address] Nov, [facility] [address] [id number] [address] [place] [address] Nov, [facility] [address] [id number] [address] [place] [address] Nov, [facility] [address] [id number] [address] [place] [address], [place] [address] Nov, [facility] [address] [id number] [address] [place] [address], [place] [address] Nov, [facility] [address] [id number] [address] [place] [address], [place] [address] Oct, [facility] [address] [id number] [address] [place] [address], [place] [address] Oct, [facility] [address] [id number] [address] [place] [address], [place] [address] Sep, [facility] [address] [id number] [address] [place] [address], [place] [address] Sep, [facility] [address] [id number] [address] [place] [address], [place] [address] Sep, [facility] [address] [id number] [address] [place] [address], [place] [address] Sep, [facility] [address] [id number] [address] [place] [address], [place] [address] Sep, [facility] [address] [id number] [address] [place] [address], [place] [address] Sep, [facility] [address] [id number] [address] [place] [address], [place] [address] Sep, [facility] [address] [id number] [address] [place] [address], [place] [address] Aug, [facility] [address] [id number] [address] [place] [address], [place] [address] Aug, [facility] [address] [id number] [address] [place] [address], [place] [address] Aug, [facility] [address] [id number] [address] [place] [address], [place] [address] Aug, [facility] [address] [id number] [facility] [place] [address] 16 Aug, 2012 [facility] [address] [id number] [address] [place] [address], [place] [address] 15 Aug, 2012 [facility] [address] [id number] [address] [place] [address], [place] [address] 05 Aug, 2012 [facility] [address] [id number] [address] [place] [address], [place] [address] Aug, [facility] [address] [id number] [address] [place] [address], [place] [address] Jul, [facility] [address] [id number] [address] [place] [address], [place] [address] Jul, [facility] [address] [id number] [address] [place] [address], [place] [address] Jul, [facility] [address] [id number] [address] [place] [address], [place] [address] Jul, [facility] [address] [id number] [address] [place] [address], [place] [address] June, [facility] [address] [id number] [address] [place] [address], [place] [address] June, [facility] [address] [id number] [address] [place] [address], [place] [address] June, [facility] [address] [id number] [address] [place] [address], [place] [address] June, [facility] [address] [id number] [address] [place] [address], [place] [address] June, [facility] [address] [id number] [address] [place] [address], [place] [address] May, [facility] [address] [id number] [address] [place] [address], [place] [address] May, [facility] [address] [id number] [address] [place] [address], [place] [address] 16 May, 2012 [facility] [address] [id number] [address] [place] [address], [place] [address] 04 May, 2012 [facility] [address] [id number] [address] [place] [address], [place] [address] 26 Apr, 2012 [facility] [address] [id number] [address] [place] [address], [place] [address] 25 Apr, 2012 [facility] [address] [id number] [address] [place] [address], [place] [address] 08 Apr, 2012 [facility] [address] [id number] [address] [place] [address], [place] [address] 07 Apr, 2012 [facility] [address] [id number] [address] [place] [address], [place] [address] 21 Mar, 2012 [facility] [address] [id number] [address] [place] [address], [place] [address] 15 Mar, 2012 [facility] [address] [id number] [address] [place] [address], [place] [address] 13 Mar, 2012 [facility] [address] [id number] [address] [place] [address], [place] [address] 07 Mar, 2012 [facility] [address] [id number] [address] [place] [address], [place] [address] 07 Feb, 2012 [facility] [address] [id number] [address] [place] [address], [place] [address] Jan, [facility] [address] [id number] [address] [place] [address], [place] [address] Jan, [facility] [address] [id number] [address] [place] [address], [place] [address] Jan, [facility] [address] [id number] [address] [place] [address], [place] [address] Dec, [facility] [address] [id number] [address] [place] [address], [place] [address] Dec, [facility] [address] [id number] [address] [place] [address], [place] [address] 28 Dec, 2011 [facility] [address] [id number] [address] [place] [address], [place] [address] 28 Dec, 2011 [facility] [address] [id number] [address] [place] [address], [place] [address] 15 Dec, 2011 [facility] [address] [id number] [address] [place] [address], [place] [address] 15 Dec, 2011 [facility] [address] [id number] [address] [place] [address], [place] [address] 14 Dec, 2011 [facility] [address] [id number] [address] [place] [address], [place] [address] 07 Dec, 2011 [facility] [address] [id number] [address] [place] [address], [place] [address] Dec, [facility] [address] [id number] [address] [place] [address], [place] [address] 17 Nov, 2011 [facility] [address] [id number] [address] [place] [address], [place] [address] 17 Nov, 2011 [facility] [address] [id number] [address] [place] [address], [place] [address] Nov, [facility] [address] [id number] [address] [place] [address], [place] [address] Nov, [facility] [address] [id number] [address] [place] [address], [place] [address] 10 Nov, 2011 [facility] [address] [id number] [address] [place] [address], [place] [address] 10 Nov, 2011 [facility] [address] [id number] [address] [place] [address], [place] [address] 12 Oct, 2011 [facility] [address] [id number] [address] [place] [address], [place] [address] 16 Sep, 2011 [facility] [address] [id number] [address] [place] [address], [place] [address] Sep, [facility] [address] [id number] [address] [place] [address], [place] [address] Aug, [facility] [address] [id number] [address] [place] [address], [place] [address] Aug, [facility] [address] [id number] [address] [place] [address], [place] [address] Aug, [facility] [address] [id number] [address] [place] [address], [place] [address] Aug, [facility] [address] [id number] [address] [place] [address], [place] [address] Aug, [facility] [address] [id number] [address] [place] [address], [place] [address] Jul, [facility] [address] [id number] [address] [place] [address], [place] [address] Jul, [facility] [address] [id number] [address] [place] [address], [place] [address] June, [facility] [address] [id number] [address] [place] [address], [place] [address] June, [facility] [address] [id number] [address] [place] [address], [place] [address] June, [facility] [address] [id number] [address] [place] [address], [place] [address] June, [facility] [address] [id number] [address] [place] [address], [place] [address] May, [facility] [address] [id number] [address] [place] [address], [place] [address] Apr, [facility] [address] [id number] [address] [place] [address], [place] [address] Apr, [facility] [address] [id number] [address] [place] [address], [place] [address] Apr, [facility] [address] [id number] [address] [place] [address], [place] [address] 08 Apr, 2011 [facility] [address] [id number] [address] [place] [address], [place] [address] Apr, [facility] [address] [id number] [address] [place] [address], [place] [address] Mar, [facility] [address] [id number] [address] [place] [address], [place] [address] Mar, [facility] [address] [id number] [address] [place] [address], [place] [address] Mar, [facility] [address] [id number] [address] [place] [address], [place] [address] Feb, [facility] [address] [id number] [address] [place] [address], [place] [address] Feb, [facility] [address] [id number] [address] [place] [address], [place] [address] Feb, [facility] [address] [id number] [address] [place] [address], [place] [address] Feb, [facility] [address] [id number] [address] [place] [address], [place] [address] Feb, [facility] [address] [id number] [address] [place] [address], [place] [address] Feb, [facility] [address] [id number] [address] [place] [address], [place] [address] Jan, [facility] [address] [id number] [address] [place] [address], [place] [address] Jan, [facility] [address] [id number] [address] [place] [address], [place] [address] Jan, [facility] [address] [id number] [address] [place] [address], [place] [address] Jan, [facility] [address] [id number] [address] [place] [address], [place] [address] Jan, [facility] [address] [id number] [address] [place] [address], [place] [address] 16 Jul, 2010 [facility] [address] [id number] [address] [place] [address], [place] [address] June, [facility] [address] [id number] [address] [place] [address], [place] [address] 13 Feb, 2010 [facility] [address] [id number] [address] [place] [address], [place] [address] 20 Jan, 2010 [facility] [address] [id number] [address] [place] [address], [place] [address] Sep, [facility] [address] [id number] [address] [place] [address], [place] [id number] 20 Aug, 2009 [facility] [address] [id number] [address] [place] [address], [place] [id number] 14 May, 2009 [facility] [address] [id number] [address] [place] [address], [place] [address] Apr, [facility] [address] [id number] [address] [place] [address], [place] [address] Jan, [facility] [address] [id number] [address] [place] [address], [place] [address] Jan, [facility] [address] [id number] [address] [place] [address], [place] [address] Jan, [facility] [address] [id number] [address] [place] [address], [place] [address] Dec, [facility] [address] [id number] [address] [place] [address], [place] [address] Dec, [facility] [address] [id number] [address] [place] [address], [place] [address] Nov, [facility] [address] [id number] [address] [place] [address], [place] [address] Nov, [facility] [address] [id number] [address] [place] [address], [place] [address] Nov, IMMUNIZATIONS No Known Immunizations SOCIAL HISTORY [...] Surgical History rectocele/cystocele repair, pessary fitt ed ([facility]) 05/2013 Surgical History Suspicious lesion removal 2015 Surgical History heart cath 03/03/2019 Hospitalization History [facility] acute gastoentereritis, dehydrati on 06/06 Hospitalization History Heart Cath 2013 Hospitalization History ER visit- 09/2018
--- OUTSIDE RECORDS SUMMARY | 2019-07-19 09:28 | XMS REPORT ---
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 Name Role Phone Migration, Doctor Unavailable Unavailable PROBLEMS Type Condition ICD9-CM Code ECQ04-DG Code Onset Dates Condition S tatus SNOMED Code Problem Episodic cluster headache, not intractable G44.019 Active 047465486 Problem Angina pectoris, unspecified I20.9 A ctive 493250473 Problem Acute bilateral low back pain with left-sided sciatica M54.42 Active 36152560 Problem Other chronic pain G89.29 Active 8 2068539 Problem Lumbago with sciatica, right side M54.41 Active 528307507 Problem Lumbago with sciatica, left side M54.42 Active 727510073 Problem COPD exacerbation J44.1 Active 29 [id number] Problem Anxiety F41.9 Active 83061678 Problem Major depressive disorder, recurrent, mild F33.0 Active 246193527 Problem History of diabetes mellitus, type II Z86.39 Active 224418010 Problem Other chronic pain G89.29 Active 8 3335409 Problem Hyperlipidemia, unspecified hyperlipidemia type E7 8.5 Active 50745146 Problem 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.0 Active 954423659 Problem Chronic obstructive pulmonary disease, unspecified COPD ty pe J44.9 Active 26499095 Problem Essential hypertension I10 Active 44930692 Problem Seasonal allergic rhinitis due to pollen J30.1 Active 21093838 Problem Atherosclerotic heart diseas e of [place] coronary artery without angina pectoris I25.10 Active 2253152351933 Problem Hypoglycemia E16.2 Active 2795706 03 Problem 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 Active 892636032627 7 Problem Primary osteoarthritis of right knee M17.11 Active 852542249194709 Problem Dysphagia, unspecified type R13.10 Ac tive 49687128 ALLERGIES No Information ENCOUNTERS Encounter Location Date Diagnosis [facility] [address] [facility] [id number] [address] [place] [address] Jul, [place] [address] [address] 28 May, 2019 Nail hypertrophy L60.2 ; 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 and Self-care deficit for grooming and hygiene Z74.1 [place] [address] [address] 09 May, [address] [address] 30 Apr, 2019 Dysphagia, unspecified type R13.10 ; Coronary artery disease of [place] artery of [place] heart with stable angina pectoris I25.118 and Breast cancer screening by mammogram Z12.[address] [address] 10 Apr, 2019 Low back pain, unspecified b ack pain laterality, with sciatica presence unspecified M54.5 ; Onychomycosis B35.1 ; Other chronic pain G89.29 ; Chronic obstructive pulmonary disease, unspecified COPD type J44.9 ; Essential hypertension I10 ; Family history of diabetes mellitus Z83.3 ; Hyperlipidemia, unspecified hyperlipidemia type E78.5 ; Anxiety F41.9 and 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 [address] 06 Mar, 2019 Primary osteoarthritis of ri t knee M17.[address] [address] Mar, [address] [address] Feb, Onychomycosis B35.1 ; Nail h ypertrophy L60.2 and Self-care deficit for grooming and hygiene Z74.[address] [address] Jan, Posterior right knee pain M2 5.561 ; Pain in left leg M79.605 ; Pain in right leg M79.604 ; Coronary artery disease of [place] artery of [place] heart with stable angina pectoris I25.118 and Encounter for immunization Z23 [place] [address] [address] Dec, Nail hypertrophy L60.2 ; Lakshmi chomycosis B35.1 and Self-care deficit for grooming and hygiene Z74.1 [place] [address] [address] Oct, [place] [address] [address] Sep, Other chest pain R07.89 [place] [address] [address] Sep, [facility] [place] [address] [address] Sep, Cellulitis of groin L03.314 [place] [address] [address] Sep, Nail hypertrophy L60.2 and S elf-care deficit for grooming and hygiene Z74.1 [place] [address] [address] Aug, [place] [address] [address] Aug, Hypoglycemia E16.2 ; Nonintr actable episodic headache, unspecified headache type R51 and Candidiasis of breast B37.89 [place] [address] [address] Aug, Nail hypertrophy L60.2 and S elf-care deficit for grooming and hygiene Z74.1 [place] [address] [address] June, [facility] [address] [place] [id number] [place] [address] May, Bee sting, accidental or uni ntentional, initial encounter T63.441A [place] [address] [facility] [id number] [address] [place] [address] Apr, Primary osteoarthritis invol ving multiple joints M15.0 ; Angina pectoris, unspecified I20.9 ; History of diabetes mellitus, type II Z86.39 and Chronic obstructive pulmonary disease, unspecified COPD type J44.9 [facility] [address] [facility] [id number] [address] [place] [address] Apr, Nail hypertrophy L60.2 and S [facility] deficit for grooming and hygiene Z74.1 [facility] [address] [facility] [id number] [address] [place] [address] Mar, [facility] [address] [facility] [id number] [address] [place] [address] Mar, Low back pain M54.5 [facility] [address] [facility] [id number] [address] [place] [address] Mar, [facility] [address] [facility] [id number] [address] [place] [id number] Feb, [facility] [address] [facility] [id number] [address] [place] [id number] Feb, [facility] [address] [facility] [id number] [address] [place] [address] Feb, Encounter for Medicare annua l wellness exam Z00.00 ; Major depressive disorder, recurrent, mild F33.0 ; Chronic obstructive pulmonary disease, unspecified COPD type J44.9 ; Atherosclerotic heart disease of [place] coronary artery without angina pectoris I25.10 ; Primary osteoarthritis involving multiple joints M15.0 ; Angina pectoris, unspecified I20.9 and 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 [facility] [address] [facility] [id number] [address] [place] [id number] Jan, [facility] [address] [facility] [id number] [address] [place] [address] Jan, [facility] [address] [place] [id number] [address] [place] [id number] Dec, Chronic obstructive pulmonar y disease, unspecified COPD type J44.9 ; Low back pain M54.5 ; Other chronic pain G89.29 and Moderate episode of recurrent major depressive disorder F33.1 [facility] [address] [facility] [id number] [address] [place] [id number] Nov, [facility] [address] [facility] [id number] [address] [place] [id number] Nov, Encounter for immunization Z 23 [place] [address] [facility] [id number] [address] [place] [address] Nov, Allergic rhinitis due to ned iona, unspecified seasonality J30.1 ; Primary osteoarthritis involving multiple joints M15.0 and Encounter for immunization Z23 [place] [address] [facility] [id number] [address] [place] [id number] Oct, Nail hypertrophy L60.2 and S elf-care deficit for hygiene R46.0 [facility] [address] [place] [id number] [address] [place] [id number] Oct, Chest congestion R09.89 ; So re throat J02.9 and Cough R05 [place] [address] [place] [id number] [place] [id number] Sep, [facility] [address] [facility] [id number] [address] [place] [id number] Aug, Low back pain M54.5 ; Other chronic pain G89.29 ; Pain in right knee M25.561 ; Pain in left knee M25.562 and Rash R21 [facility] [address] [facility] [id number] [address] [place] [id number] Aug, Nail hypertrophy L60.2 and S elf-care deficit for hygiene R46.0 [facility] [address] [facility] [id number] [address] [place] [id number] June, Hypertrophy of nail L60.2 an d Self-care deficit for hygiene R46.0 [place] [address] [facility] [id number] [address] [place] [id number] June, [facility] [address] [facility] [id number] [address] [place] [id number] June, COPD exacerbation J44.1 [facility] [address] [facility] [id number] [address] [place] [id number] May, [facility] [address] [address] Apr, Seasonal allergic rhinitis d ue to pollen J30.1 ; Encounter for immunization Z23 ; COPD exacerbation J44.1 ; Encounter for screening mammogram for breast cancer Z12.31 and Colon cancer screening Z12.11 [place] [address] [place] [id number] [place] [address] Apr, [place] [address] [address] Feb, Lumbago with sciatica, right side M54.41 ; Lumbago with sciatica, left side M54.42 ; Other chronic pain G89.29 ; Left hip pain M25.552 and Anxiety F41.9 [facility] [address] [place] [id number] [place] [address] Jan, History of asthma Z87.09 ; C OPD exacerbation J44.1 and Acute non-recurrent maxillary sinusitis J01.00 [facility] [address] [place] [id number] [address] [place] [id number] Jan, Other chronic pain G89.29 an d Acute bilateral low back pain with left-sided sciatica M54.42 [place] [address] [place] [id number] Jan, Other chronic pain G89.29 an d Acute bilateral low back pain with left-sided sciatica M54.42 [facility] [address] [facility] [id number] [address] [place] [id number] Dec, Trochanteric bursitis of lef t hip M70.62 ; Left hip pain M25.552 and Other chronic pain G89.29 [facility] [address] [place] [id number] [place] [address] Nov, Local reaction to insect sti ng, accidental or unintentional, initial encounter T63.481A and Acute dermatitis L30.9 [place] [address] [place] [id number] [place] [id number] Nov, Breast cancer screening Z12. 31 [place] [address] [place] [id number] [place] [address] Nov, Acute bilateral low back rangel n with left-sided sciatica M54.42 and Low back pain, unspecified back pain laterality, with sciatica presence unspecified M54.5 [facility] [address] [place] [id number] [place] [address] Oct, Acute bilateral low back rangel n with left-sided sciatica M54.42 [place] [address] [address] Sep, Low back pain, unspecified b ack pain laterality, with sciatica presence unspecified M54.5 [place] [address] [address] Sep, [place] [address] [address] Aug, Nail hypertrophy L60.2 ; Lakshmi chomycosis B35.1 and Self-care deficit for hygiene R46.0 [place] [address] [place] [id number] Aug, [place] [address] [place] [id number] [place] [address] Aug, [facility] [address] [place] [id number] [place] [id number] Jul, Rash R21 [place] [address] [address] Jul, [facility] [address] [id number] [address] [place] [id number] Jul, Low back pain, unspecified b ack pain laterality, with sciatica presence unspecified M54.5 [facility] [address] [id number] [address] [place] [id number] June, Nail hypertrophy L60.2 ; Marilee f-care deficit for hygiene R46.0 and Other chronic pain G89.29 [facility] [address] [id number] [address] [place] [id number] June, Low back pain, unspecified b ack pain laterality, with sciatica presence unspecified M54.5 [facility] [address] [id number] [address] [place] [id number] May, [facility] [address] [id number] [address] [place] [id number] May, [facility] [address] [id number] [address] [place] [id number] May, [facility] [address] [id number] [address] [place] [id number] May, Low back pain, unspecified b ack pain laterality, with sciatica presence unspecified M54.5 [facility] [address] [id number] [address] [place] [id number] Apr, Breast pain, left N64.4 ; Le ft arm pain M79.602 and Family history of diabetes mellitus Z83.3 [facility] [address] [id number] [address] [place] [id number] Apr, Low back pain, unspecified b ack pain laterality, with sciatica presence unspecified M54.5 [facility] [address] [id number] [address] [place] [id number] Apr, [facility] [address] [id number] [address] [place] [id number] 28 Mar, 2016 Onychomycosis B35.1 and Self -care deficit for hygiene R46.0 [facility] [address] [id number] [address] [place] [id number] 17 Mar, 2016 Low back pain, unspecified b ack pain laterality, with sciatica presence unspecified M54.5 [facility] [address] [id number] [address] [place] [id number] 14 Mar, 2016 Pain in left shoulder M25.51 2 and Other chronic pain G89.29 [facility] [address] [id number] [address] [place] [id number] 13 Mar, 2016 Arthralgia, unspecified join t M25.50 [facility] [address] [id number] [address] [place] [id number] 06 Mar, 2016 [facility] [address] [id number] [address] [place] [id number] Feb, Low back pain, unspecified b ack pain laterality, with sciatica presence unspecified M54.5 [facility] [address] [id number] [address] [place] [id number] Feb, [facility] [address] [id number] [address] [place] [id number] Feb, Dental examination Z01.20 [facility] [address] [id number] [address] [place] [id number] Feb, Dental examination Z01.20 [facility] [address] [id number] [address] [place] [id number] Feb, Cramp of both lower extremit ies R25.2 [facility] [address] [id number] [address] [place] [id number] Feb, [facility] [address] [id number] [address] [place] [id number] Jan, Hypoxemia R09.02 ; Episodic cluster headache, not intractable G44.019 and Cramp of both lower extremities R25.2 [facility] [address] [id number] [address] [place] [id number] Jan, [facility] [address] [id number] [address] [place] [id number] Jan, Low back pain, unspecified b ack pain laterality, with sciatica presence unspecified M54.5 [facility] [address] [id number] [address] [place] [id number] Jan, Hypertrophy of nail L60.2 ; Onychomycosis B35.1 and Self-care deficit for hygiene R46.0 [place] [address] [facility] [id number] [address] [place] [id number] Jan, Low back pain, unspecified b ack pain laterality, with sciatica presence unspecified M54.5 [place] [address] [facility] [id number] [address] [place] [id number] Dec, Low back pain, unspecified b ack pain laterality, with sciatica presence unspecified M54.5 [facility] [address] [facility] [id number] [address] [place] [id number] Dec, Bug bite with infection, ini tial encounter W57.XXXA [place] [address] [id number] [address] [place] [id number] Nov, Low back pain, unspecified b ack pain laterality, with sciatica presence unspecified M54.5 [place] [address] [facility] [id number] [address] [place] [id number] Nov, [place] [address] [id number] [address] [place] [id number] Nov, Chronic obstructive pulmonar y disease, unspecified COPD type J44.9 [facility] [address] [id number] [address] [place] [id number] Nov, [place] [address] [facility] [id number] [address] [place] [id number] Oct, [facility] [address] [id number] [address] [place] [address] Oct, Onychomycosis B35.1 and Ingr own nail L60.0 [facility] [address] [id number] [address] [place] [id number] Oct, Low back pain, unspecified b ack pain laterality, with sciatica presence unspecified M54.5 [place] [address] [id number] [address] [place] [id number] Sep, [place] [address] [id number] [address] [place] [id number] Sep, Low back pain, unspecified b ack pain laterality, with sciatica presence unspecified M54.5 [place] [address] [facility] [id number] [address] [place] [id number] Aug, [place] [address] [facility] [id number] [address] [place] [id number] Aug, Cramp of both lower extremit ies R25.2 ; Breast cancer screening Z12.39 ; Hyperlipidemia, unspecified hyperlipidemia type E78.5 and Atypical mole L81.9 [place] [address] [id number] [address] [place] [id number] Aug, Chronic obstructive pulmonar y disease, unspecified COPD type J44.9 [place] [address] [id number] [address] [place] [address] Aug, Low back pain, unspecified b ack pain laterality, with sciatica presence unspecified M54.5 [place] [address] [id number] [address] [place] [id number] Aug, Atherosclerotic heart diseas e of [place] coronary artery without angina pectoris I25.10 [place] [address] [id number] [address] [place] [id number] Jul, [place] [address] [facility] [id number] [address] [place] [id number] 15 Jul, 2015 [place] [address] [facility] [id number] [address] [place] [id number] 13 Jul, 2015 Allergic rhinitis, unspecifi ed allergic rhinitis type J30.9 [place] [address] [facility] [id number] [address] [place] [id number] 13 Jul, 2015 Low back pain, unspecified b ack pain laterality, with sciatica presence unspecified M54.5 [place] [address] [place] [id number] [address] [place] [address] 07 Jul, 2015 Post-concussion headache G44 .309 and Arthralgia, unspecified joint M25.50 [place] [address] [place] [id number] [address] [place] [id number] 24 Jun, 2015 Chronic obstructive pulmonar y disease, unspecified COPD type J44.9 [place] [address] [address] June, [place] [id number] [place] [id number] 18 May, 2015 [place] [address] [address] 05 May, 2015 [place] [address] [place] [id number] [address] [place] [address] 30 Apr, 2015 Hip pain 719.45 and Atherosc lerotic heart disease of [place] coronary artery without angina pectoris I25.10 [place] [address] [place] [id number] [place] [id number] 22 Apr, 2015 History of self-care deficit Z86.59 ; Hypertrophy of nail L60.2 and Onychomycosis B35.1 [place] [address] [place] [id number] [place] [id number] 16 Apr, 2015 [place] [address] [place] [id number] 15 Apr, 2015 Gastroenteritis K52.9 [facility] [address] [id number] [address] [place] [id number] Mar, [facility] [address] [id number] [address] [place] [id number] Mar, [facility] [address] [id number] [address] [place] [id number] Mar, [facility] [address] [id number] [address] [place] [id number] Mar, Acute pain due to injury G89 .11 and Other chronic pain G89.29 [facility] [address] [id number] [address] [place] [id number] Mar, [facility] [address] [id number] [address] [place] [phone] Mar, [facility] [address] [id number] [address] [place] [phone] Mar, [facility] [address] [id number] [address] [place] [id number] Mar, [facility] [address] [id number] [address] [place] [phone] Feb, Low back pain, unspecified b ack pain laterality, with sciatica presence unspecified M54.5 [facility] [address] [id number] [address] [place] [phone] Feb, [facility] [address] [id number] [address] [place] [phone] Jan, [facility] [address] [id number] [address] [place] [id number] Jan, Low back pain, unspecified b ack pain laterality, with sciatica presence unspecified M54.5 [facility] [address] [id number] [address] [place] [id number] Jan, Other chronic pain G89.29 an d Acute pain due to injury G89.11 [facility] [address] [id number] [address] [place] [phone] Dec, [facility] [address] [id number] [address] [place] [id number] Nov, Essential hypertension I10 a nd Viral infection, unspecified B34.9 [facility] [address] [facility] [facility] [id number] [address] [place] [phone] Nov, [facility] [address] [id number] [address] [place] [address] Nov, [facility] [address] [id number] [address] [place] [address] Oct, [facility] [address] [facility] [id number] [address] [place] [phone] Oct, [facility] [address] [facility] [id number] [address] [place] [address] Oct, [facility] [address] [facility] [id number] [address] [place] [address] Oct, [facility] [address] [facility] [id number] [address] [place] [address] Sep, [facility] [address] [facility] [id number] [address] [place] [address] Sep, Hypertrophy of nail 703.8 an d Self-care deficit for hygiene V40.39 [facility] [address] [facility] [id number] [address] [place] [address] Sep, [facility] [address] [facility] [id number] [address] [place] [address] Sep, [facility] [address] [facility] [id number] [address] [place] [phone] Aug, [facility] [address] [facility] [id number] [address] [place] [address] Jul, Onychomycosis 110.1 and Ingr own nail 703.0 [facility] [address] [id number] [address] [place] [id number] 09 Jul, 2014 Other screening mammogram V7 6.12 [facility] [address] [id number] [address] [place] [id number] Jul, [facility] [address] [id number] [address] [place] [phone] Jul, Hip pain 719.45 ; Visual dis turbance 368.9 and Conjunctivitis 372.30 [facility] [address] [id number] [address] [place] [address] June, [facility] [address] [id number] [address] [place] [address] June, [facility] [address] [id number] [address] [place] [phone] June, [facility] [address] [id number] [address] [place] [id number] June, [facility] [address] [id number] [address] [place] [address] May, [facility] [address] [id number] [address] [place] [address] May, [facility] [address] [id number] [address] [place] [phone] Apr, [facility] [address] [id number] [address] [place] [phone] Apr, [facility] [address] [id number] [address] [place] [phone] Apr, [facility] [address] [id number] [address] [place] [phone] Apr, [facility] [address] [id number] [address] [place] [id number] Mar, [facility] [address] [id number] [address] [place] [id number] Mar, [facility] [address] [id number] [address] [place] [address], [place] [address] Feb, [facility] [address] [id number] [address] [place] [address], [place] [address] Feb, [facility] [address] [id number] [address] [place] [address], [place] [address] Feb, [facility] [address] [id number] [address] [place] [address], [place] [address] Jan, [facility] [address] [id number] [address] [place] [address], [place] [address] Jan, [facility] [address] [id number] [address] [place] [address], [place] [address] Jan, [facility] [address] [id number] [address] [place] [address], [place] [address] Jan, [facility] [address] [id number] [address] [place] [address], [place] [address] Jan, [facility] [address] [id number] [address] [place] [address], [place] [address] Jan, [facility] [address] [id number] [address] [place] [address], [place] [address] Dec, [facility] [address] [id number] [address] [place] [address], [place] [address] Nov, [facility] [address] [id number] [address] [place] [address], [place] [address] Nov, [facility] [address] [id number] [address] [place] [address], [place] [address] Nov, [facility] [address] [id number] [address] [place] [address], [place] [address] Nov, [facility] [address] [id number] [address] [place] [address], [place] [address] Nov, [facility] [address] [id number] [address] [place] [address] [place] [address] Nov, [facility] [address] [id number] [address] [place] [address], [place] [address] Nov, [facility] [address] [id number] [address] [place] [address], [place] [address] Nov, [facility] [address] [id number] [address] [place] [address], [place] [address] Nov, [facility] [address] [id number] [address] [place] [address], [place] [address] Nov, [facility] [address] [id number] [address] [place] [address], [place] [address] 25 Oct, 2013 [facility] [address] [id number] [address] [place] [address], [place] [address] 25 Oct, 2013 [facility] [address] [id number] [address] [place] [address], [place] [address] 24 Oct, 2013 [facility] [address] [id number] [address] [place] [address], [place] [address] 24 Oct, 2013 [facility] [address] [id number] [address] [place] [address], [place] [address] 15 Oct, 2013 [facility] [address] [id number] [address] [place] [address], [place] [address] 15 Oct, 2013 [facility] [address] [id number] [address] [place] [address], [place] [address] 04 Oct, 2013 [facility] [address] [id number] [address] [place] [address], [place] [address] 04 Oct, 2013 [facility] [address] [id number] [address] [place] [address], [place] [address] Sep, [facility] [address] [id number] [address] [place] [address], [place] [address] Sep, [facility] [address] [id number] [address] [place] [address], [place] [address] Sep, [facility] [address] [id number] [facility] [place] [address] Sep, [facility] [address] [id number] [facility] [place] [address] Aug, [facility] [address] [id number] [facility] [place] [address] Aug, [facility] [address] [id number] [address] [place] [address], [place] [address] Aug, [facility] [address] [id number] [address] [place] [address], [place] [address] Aug, 2013 [facility] [address] [id number] [address] [place] [address], [place] [address] Aug, [facility] [address] [id number] [address] [place] [address], [place] [address] Aug, [facility] [address] [id number] [address] [place] [address], [place] [address] Aug, [facility] [address] [id number] [address] [place] [address], [place] [address] Aug, [facility] [address] [id number] [address] [place] [address], [place] [address] Jul, [facility] [address] [id number] [address] [place] [address], [place] [address] Jul, [facility] [address] [id number] [address] [place] [address], [place] [address] Jul, [facility] [address] [id number] [address] [place] [address], [place] [address] Jul, [facility] [address] [id number] [address] [place] [address], [place] [address] Jul, [facility] [address] [id number] [address] [place] [address], [place] [address] Jul, [facility] [address] [id number] [address] [place] [address], [place] [address] Jul, [facility] [address] [id number] [facility] [place] [address] Jul, [facility] [address] [id number] [address] [place] [address], [place] [address] Jul, [facility] [address] [id number] [address] [place] [address], [place] [address] Jul, [facility] [address] [id number] [address] [place] [address], [place] [address] Jul, [facility] [address] [id number] [address] [place] [address], [place] [address] Jul, [facility] [address] [id number] [address] [place] [address], [place] [address] Jul, [facility] [address] [id number] [address] [place] [address], [place] [address] Jul, [facility] [address] [id number] [address] [place] [address], [place] [address] Jul, [facility] [address] [id number] [address] [place] [address], [place] [address] Jul, [facility] [address] [id number] [address] [place] [address], [place] [address] Jul, [facility] [address] [id number] [address] [place] [address], [place] [address] June, [facility] [address] [id number] [address] [place] [address], [place] [address] June, [facility] [address] [id number] [address] [place] [address], [place] [address] May, [facility] [address] [id number] [address] [place] [address], [place] [address] May, [facility] [address] [id number] [address] [place] [address], [place] [address] May, [facility] [address] [id number] [facility] [place] [address] 10 May, 2013 [facility] [address] [id number] [address] [place] [address], [place] [address] 17 Apr, 2013 [facility] [address] [id number] [facility] [place] [address] 17 Apr, 2013 [facility] [address] [id number] [address] [place] [address], [place] [address] 13 Apr, 2013 [facility] [address] [id number] [address] [place] [address], [place] [address] 13 Apr, 2013 [facility] [address] [id number] [address] [place] [address], [place] [address] 11 Apr, 2013 [facility] [address] [id number] [address] [place] [address], [place] [address] 11 Apr, 2013 [facility] [address] [id number] [address] [place] [address], [place] [address] 10 Apr, 2013 [facility] [address] [id number] [address] [place] [address], [place] [address] 13 Mar, 2013 [facility] [address] [id number] [address] [place] [address], [place] [address] 13 Mar, 2013 [facility] [address] [id number] [address] [place] [address], [place] [address] 11 Mar, 2013 [facility] [address] [id number] [address] [place] [address], [place] [address] Mar, [facility] [address] [id number] [address] [place] [address], [place] [address] Feb, [facility] [address] [id number] [address] [place] [address], [place] [address] Feb, [facility] [address] [id number] [address] [place] [address], [place] [address] Feb, [facility] [address] [id number] [address] [place] [address], [place] [address] Feb, [facility] [address] [id number] [address] [place] [address], [place] [address] Jan, [facility] [address] [id number] [address] [place] [address], [place] [address] Jan, [facility] [address] [id number] [address] [place] [address], [place] [address] Jan, [facility] [address] [id number] [address] [place] [address], [place] [address] Jan, [facility] [address] [id number] [address] [place] [address], [place] [address] Dec, [facility] [address] [id number] [address] [place] [address], [place] [address] Dec, [facility] [address] [id number] [address] [place] [address], [place] [address] Dec, [facility] [address] [id number] [address] [place] [address], [place] [address] Dec, [facility] [address] [id number] [address] [place] [address], [place] [address] Dec, [facility] [address] [id number] [address] [place] [address] Nov, [facility] [address] [id number] [address] [place] [address], [place] [address] Nov, [facility] [address] [id number] [address] [place] [address] Nov, [facility] [address] [id number] [address] [place] [address], [place] [address] Nov, [facility] [address] [id number] [address] [place] [address], [place] [address] Nov, [facility] [address] [id number] [address] [place] [address], [place] [address] Nov, [facility] [address] [id number] [address] [place] [address] [place] [address] Nov, [facility] [address] [id number] [address] [place] [address], [place] [address] Nov, [facility] [address] [id number] [address] [place] [address], [place] [address] Oct, [facility] [address] [id number] [address] [place] [address], [place] [address] Oct, [facility] [address] [id number] [address] [place] [address], [place] [address] Sep, [facility] [address] [id number] [address] [place] [address], [place] [address] Sep, [facility] [address] [id number] [address] [place] [address], [place] [address] Sep, [facility] [address] [id number] [address] [place] [address], [place] [address] Sep, [facility] [address] [id number] [address] [place] [address], [place] [address] Sep, [facility] [address] [id number] [address] [place] [address], [place] [address] Sep, [facility] [address] [id number] [address] [place] [address], [place] [address] Sep, [facility] [address] [id number] [address] [place] [address], [place] [address] Aug, [facility] [address] [id number] [address] [place] [address], [place] [address] Aug, [facility] [address] [id number] [address] [place] [address], [place] [address] Aug, [facility] [address] [id number] [address] [place] [address], [place] [address] Aug, [facility] [address] [id number] [address] [place] [address], [place] [address] Aug, [facility] [address] [id number] [address] [place] [address], [place] [address] 15 Aug, 2012 [facility] [address] [id number] [address] [place] [address], [place] [address] 05 Aug, 2012 [facility] [address] [id number] [address] [place] [address], [place] [address] Aug, [facility] [address] [id number] [address] [place] [address], [place] [address] 15 Jul, 2012 [facility] [address] [id number] [address] [place] [address], [place] [address] Jul, [facility] [address] [id number] [address] [place] [address], [place] [address] Jul, [facility] [address] [id number] [address] [place] [address], [place] [address] Jul, [facility] [address] [id number] [address] [place] [address], [place] [address] June, [facility] [address] [id number] [address] [place] [address], [place] [address] June, [facility] [address] [id number] [address] [place] [address], [place] [address] June, [facility] [address] [id number] [address] [place] [address], [place] [address] June, [facility] [address] [id number] [address] [place] [address], [place] [address] June, [facility] [address] [id number] [address] [place] [address], [place] [address] May, [facility] [address] [id number] [address] [place] [address], [place] [address] May, [facility] [address] [id number] [address] [place] [address], [place] [address] 16 May, 2012 [facility] [address] [id number] [address] [place] [address], [place] [address] May, [facility] [address] [id number] [address] [place] [address], [place] [address] Apr, [facility] [address] [id number] [address] [place] [address], [place] [address] Apr, [facility] [address] [id number] [address] [place] [address], [place] [address] 08 Apr, 2012 [facility] [address] [id number] [address] [place] [address], [place] [address] 07 Apr, 2012 [facility] [address] [id number] [address] [place] [address], [place] [address] 21 Mar, 2012 [facility] [address] [id number] [address] [place] [address], [place] [address] 15 Mar, 2012 [facility] [address] [id number] [address] [place] [address], [place] [address] 13 Mar, 2012 [facility] [address] [id number] [address] [place] [address], [place] [address] 07 Mar, 2012 [facility] [address] [id number] [address] [place] [address], [place] [address] Feb, [facility] [address] [id number] [address] [place] [address], [place] [address] Jan, [facility] [address] [id number] [address] [place] [address], [place] [address] Jan, [facility] [address] [id number] [address] [place] [address], [place] [address] Jan, [facility] [address] [id number] [address] [place] [address], [place] [address] Dec, [facility] [address] [id number] [address] [place] [address], [place] [address] Dec, [facility] [address] [id number] [address] [place] [address], [place] [address] Dec, [facility] [address] [id number] [address] [place] [address], [place] [address] 28 Dec, 2011 [facility] [address] [id number] [address] [place] [address], [place] [address] 15 Dec, 2011 [facility] [address] [id number] [address] [place] [address], [place] [address] 15 Dec, 2011 [facility] [address] [id number] [address] [place] [address], [place] [address] 14 Dec, 2011 [facility] [address] [id number] [address] [place] [address], [place] [address] 07 Dec, 2011 [facility] [address] [id number] [address] [place] [address], [place] [address] 07 Dec, 2011 [facility] [address] [id number] [address] [place] [address], [place] [address] 17 Nov, 2011 [facility] [address] [id number] [address] [place] [address], [place] [address] 17 Nov, 2011 [facility] [address] [id number] [address] [place] [address], [place] [address] Nov, [facility] [address] [id number] [address] [place] [address], [place] [address] 12 Nov, 2011 [facility] [address] [id number] [address] [place] [address], [place] [address] 10 Nov, 2011 [facility] [address] [id number] [address] [place] [address], [place] [address] 10 Nov, 2011 [facility] [address] [id number] [address] [place] [address], [place] [address] 12 Oct, 2011 [facility] [address] [id number] [address] [place] [address], [place] [address] 16 Sep, 2011 [facility] [address] [id number] [address] [place] [address], [place] [address] Sep, [facility] [address] [id number] [address] [place] [address], [place] [address] Aug, [facility] [address] [id number] [address] [place] [address], [place] [address] Aug, [facility] [address] [id number] [address] [place] [address], [place] [address] Aug, [facility] [address] [id number] [address] [place] [address], [place] [address] Aug, [facility] [address] [id number] [address] [place] [address], [place] [address] Aug, [facility] [address] [id number] [address] [place] [address], [place] [address] Jul, [facility] [address] [id number] [address] [place] [address], [place] [address] Jul, [facility] [address] [id number] [address] [place] [address], [place] [address] June, [facility] [address] [id number] [address] [place] [address], [place] [address] June, [facility] [address] [id number] [address] [place] [address], [place] [address] June, [facility] [address] [id number] [address] [place] [address], [place] [address] June, [facility] [address] [id number] [address] [place] [address], [place] [address] May, [facility] [address] [id number] [address] [place] [address], [place] [address] Apr, [facility] [address] [id number] [address] [place] [address] [address] Apr, [facility] [address] [id number] [address] [place] [address], [place] [address] 15 Apr, 2011 [facility] [address] [id number] [address] [place] [address], [place] [address] Apr, [facility] [address] [id number] [address] [place] [address], [place] [address] Apr, [facility] [address] [id number] [address] [place] [address], [place] [address] 29 Mar, 2011 [facility] [address] [id number] [address] [place] [address], [place] [address] Mar, [facility] [address] [id number] [address] [place] [address], [place] [address] Mar, [facility] [address] [id number] [address] [place] [address], [place] [address] Feb, [facility] [address] [id number] [address] [place] [address], [place] [address] Feb, [facility] [address] [id number] [address] [place] [address], [place] [address] Feb, [facility] [address] [id number] [address] [place] [address], [place] [address] Feb, [facility] [address] [id number] [address] [place] [address], [place] [address] Feb, [facility] [address] [id number] [address] [place] [address], [place] [address] Feb, [facility] [address] [id number] [address] [place] [address], [place] [address] Jan, [facility] [address] [id number] [address] [place] [address], [place] [address] Jan, [facility] [address] [id number] [address] [place] [address], [place] [address] Jan, [facility] [address] [id number] [address] [place] [address], [place] [address] Jan, [facility] [address] [id number] [address] [place] [address], [place] [address] 02 Jan, 2011 [facility] [address] [id number] [address] [place] [address], [place] [address] 16 Jul, 2010 [facility] [address] [id number] [address] [place] [phone] June, [facility] [address] [id number] [address] [place] [phone] Feb, [facility] [address] [id number] [address] [place] [phone] Jan, [facility] [address] [id number] [address] [place] [phone] Sep, [facility] [address] [id number] [address] [place] [phone] Aug, [facility] [address] [id number] [address] [place] [phone] May, [facility] [address] [id number] [address] [place] [phone] Apr, [facility] [address] [id number] [address] [place] [phone] Jan, [facility] [address] [id number] [address] [place] [id number] Jan, [facility] [address] [id number] [address] [place] [phone] Jan, [facility] [address] [id number] [address] [place] [phone] Dec, [facility] [address] [id number] [address] [place] [id number] Dec, [facility] [address] [id number] [address] [place] [phone] Nov, [facility] [address] [id number] [address] [place] [phone] Nov, [facility] [address] [id number] [address] [place] [id number] Nov, IMMUNIZATIONS No Known Immunizations SOCIAL HISTORY [...] Surgical History rectocele/cystocele repair, pessary fitt ed ([facility]) 05/2013 Surgical History Suspicious lesion removal 2016 Surgical History heart cath 03/03/2019 Hospitalization History [facility] acute gastoentereritis, dehydrati on 06/06 Hospitalization History Heart Cath 2013 Hospitalization History ER visit- 09/2018
--- OUTSIDE RECORDS SUMMARY | 2019-07-19 09:28 | XMS REPORT ---
Author Author Juanita PATIÑO Organization [facility] Address [address] [place] [address] Care Team Providers Care Skip Operator Name Role Phone FUENTES PATIÑO Unavailable PROBLEMS Type Condition ICD9-CM Code YKD25-YO Code Onset Dates Condition S tatus SNOMED Code Problem Episodic cluster headache, not intractable G44.019 Active 817036075 Problem Angina pectoris, unspecified I20.9 A ctive 809412004 Problem Acute bilateral low back pain with left-sided sciatica M54.42 Active 44846815 Problem Other chronic pain G89.29 Active 8 1316634 Problem Lumbago with sciatica, right side M54.41 Active 478055265 Problem Lumbago with sciatica, left side M54.42 Active 569348260 Problem COPD exacerbation J44.1 Active 29 [id number] Problem Anxiety F41.9 Active 77515824 Problem Major depressive disorder, recurrent, mild F33.0 Active 372840582 Problem History of diabetes mellitus, type II Z86.39 Active 031669060 Problem Other chronic pain G89.29 Active 8 4169357 Problem Hyperlipidemia, unspecified hyperlipidemia type E7 8.5 Active 16680931 Problem 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.0 Active 389652536 Problem Chronic obstructive pulmonary disease, unspecified COPD ty pe J44.9 Active 37584177 Problem Essential hypertension I10 Active 26030133 Problem Seasonal allergic rhinitis due to pollen J30.1 Active 39139346 Problem Atherosclerotic heart diseas e of [place] coronary artery without angina pectoris I25.10 Active 7902563321483 Problem Hypoglycemia E16.2 Active 1022420 03 Problem 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10 ; Coronary artery disease of [place] artery of [place] heart with stable angina pectoris I25.118 and Breast cancer screening by mammogram Z12.31 [place] [address] [address] 10 Apr, 2019 Low back pain, unspecified b ack pain laterality, with sciatica presence unspecified M54.5 ; Onychomycosis B35.1 ; Other chronic pain G89.29 ; Chronic obstructive pulmonary disease, unspecified COPD type J44.9 ; Essential hypertension I10 ; Family history of diabetes mellitus Z83.3 ; Hyperlipidemia, unspecified hyperlipidemia type E78.5 ; Anxiety F41.9 and 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 [place] [address] [address] [place] [id number] [place] [phone] Mar, Primary osteoarthritis of ri ght knee M17.11 [place] [address] [address] [place] [id number] [address] [place] [phone] Mar, [place] [address] [address] Feb, Onychomycosis B35.1 ; Nail h ypertrophy L60.2 and Self-care deficit for grooming and hygiene Z74.1 [place] [id number] [place] [address] Jan, Posterior right knee pain M2 5.561 ; Pain in left leg M79.605 ; Pain in right leg M79.604 ; Coronary artery disease of [place] artery of [place] heart with stable angina pectoris I25.118 and Encounter for immunization Z23 [facility] [address] [facility] [id number] [place] [phone] Dec, Nail hypertrophy L60.2 ; Lakshmi chomycosis B35.1 and Self-care deficit for grooming and hygiene Z74.1 [place] [address] [address] [facility] [id number] [place] [phone] Oct, [place] [address] [address] [facility] [id number] [place] [phone] Sep, Other chest pain R07.89 [place] [address] [address] [place] [id number] [place] [phone] Sep, [facility] [address] [place] [id number] [place] [phone] Sep, Cellulitis of groin L03.314 [place] [address] [address] [place] [id number] [place] [phone] Sep, Nail hypertrophy L60.2 and S elf-care deficit for grooming and hygiene Z74.1 [facility] [address] [place] [id number] [place] [phone] Aug, [place] [address] [facility] [id number] [place] [phone] Aug, Hypoglycemia E16.2 ; Nonintr actable episodic headache, unspecified headache type R51 and Candidiasis of breast B37.89 [facility] [address] [facility] [id number] [address] [place] [phone] Aug, Nail hypertrophy L60.2 and S elf-care deficit for grooming and hygiene Z74.1 [place] [address] [address] [facility] [id number] [address] [place] [phone] June, [facility] [address] [facility] [id number] [address] [place] [phone] May, Bee sting, accidental or uni ntentional, initial encounter T63.441A [place] [id number] [address] Apr, Primary osteoarthritis invol ving multiple joints M15.0 ; Angina pectoris, unspecified I20.9 ; History of diabetes mellitus, type II Z86.39 and Chronic obstructive pulmonary disease, unspecified COPD type J44.9 [place] [address] [address] Apr, Nail hypertrophy L60.2 and S [facility] deficit for grooming and hygiene Z74.1 [place] [address] [address] Mar, [facility] [address] [address] Mar, Low back pain M54.5 [place] [address] [address] Mar, [facility] [address] [place] [id number] [place] [phone] Feb, [place] [address] [address] Feb, [place] [address] [address] Feb, Encounter for Medicare annua l wellness exam Z00.00 ; Major depressive disorder, recurrent, mild F33.0 ; Chronic obstructive pulmonary disease, unspecified COPD type J44.9 ; Atherosclerotic heart disease of [place] coronary artery without angina pectoris I25.10 ; Primary osteoarthritis involving multiple joints M15.0 ; Angina pectoris, unspecified I20.9 and 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 [place] [address] [place] [id number] [address] [place] [phone] Jan, [facility] [address] [address] Jan, [facility] [address] [place] [phone] Dec, Chronic obstructive pulmonar y disease, unspecified COPD type J44.9 ; Low back pain M54.5 ; Other chronic pain G89.29 and Moderate episode of recurrent major depressive disorder F33.1 [place] [address] [place] [phone] Nov, [place] [address] [place] [id number] [place] [phone] Nov, Encounter for immunization Z 23 [place] [address] [address] Nov, Allergic rhinitis due to ned iona, unspecified seasonality J30.1 ; Primary osteoarthritis involving multiple joints M15.0 and Encounter for immunization Z23 [place] [address] [address] Oct, Nail hypertrophy L60.2 and S elf-care deficit for hygiene R46.0 [facility] [address] [address] 05 Oct, 2017 Chest congestion R09.89 ; So re throat J02.9 and Cough R05 [place] [address] [address] [place] [id number] [place] [phone] Sep, [facility] [address] [place] [id number] [address] [place] [phone] Aug, Low back pain M54.5 ; Other chronic pain G89.29 ; Pain in right knee M25.561 ; Pain in left knee M25.562 and Rash R21 [place] [address] [address] [place] [id number] [address] [place] [phone] Aug, Nail hypertrophy L60.2 and S elf-care deficit for hygiene R46.0 [facility] [address] [place] [id number] [address] [place] [phone] June, Hypertrophy of nail L60.2 an d Self-care deficit for hygiene R46.0 [facility] [address] [facility] [id number] [address] [place] [phone] June, [facility] [address] [facility] [id number] [address] [place] [phone] June, COPD exacerbation J44.1 [facility] [address] [facility] [id number] [address] [place] [phone] May, [facility] [address] [facility] [id number] [address] [place] [phone] Apr, Seasonal allergic rhinitis d ue to pollen J30.1 ; Encounter for immunization Z23 ; COPD exacerbation J44.1 ; Encounter for screening mammogram for breast cancer Z12.31 and Colon cancer screening Z12.11 [place] [address] [place] [id number] [address] [place] [phone] Apr, [place] [address] [place] [id number] [address] [place] [phone] Feb, Lumbago with sciatica, right side M54.41 ; Lumbago with sciatica, left side M54.42 ; Other chronic pain G89.29 ; Left hip pain M25.552 and Anxiety F41.9 [facility] [address] [place] [id number] [address] [place] [phone] Jan, History of asthma Z87.09 ; C OPD exacerbation J44.1 and Acute non-recurrent maxillary sinusitis J01.00 [facility] [address] [facility] [id number] [address] [place] [phone] Jan, Other chronic pain G89.29 an d Acute bilateral low back pain with left-sided sciatica M54.42 [facility] [address] [facility] [id number] [address] [place] [id number] 14 Jan, 2017 Other chronic pain G89.29 an d Acute bilateral low back pain with left-sided sciatica M54.42 [facility] [address] [address] Dec, Trochanteric bursitis of lef t hip M70.62 ; Left hip pain M25.552 and Other chronic pain G89.29 [facility] [address] [address] Nov, Local reaction to insect sti ng, accidental or unintentional, initial encounter T63.481A and Acute dermatitis L30.9 [place] [address] [address] Nov, Breast cancer screening Z12. 31 [place] [address] [address] Nov, Acute bilateral low back rangel n with left-sided sciatica M54.42 and Low back pain, unspecified back pain laterality, with sciatica presence unspecified M54.5 [facility] [address] [address] Oct, Acute bilateral low back rangel n with left-sided sciatica M54.42 [place] [address] [address] Sep, Low back pain, unspecified b ack pain laterality, with sciatica presence unspecified M54.5 [place] [address] [address] Sep, [place] [address] [address] Aug, Nail hypertrophy L60.2 ; Lakshmi chomycosis B35.1 and Self-care deficit for hygiene R46.0 [place] [address] [address] Aug, [place] [address] [address] Aug, [facility] [address] [address] Jul, Rash R21 [facility] [address] [id number] [address] [place] [phone] Jul, [facility] [address] [facility] [id number] [address] [place] [phone] Jul, Low back pain, unspecified b ack pain laterality, with sciatica presence unspecified M54.5 [facility] [address] [id number] [address] [place] [phone] June, Nail hypertrophy L60.2 ; Marilee f-care deficit for hygiene R46.0 and Other chronic pain G89.29 [place] [address] [facility] [id number] [address] [place] [phone] June, Low back pain, unspecified b ack pain laterality, with sciatica presence unspecified M54.5 [place] [address] [facility] [id number] [address] [place] [phone] May, [facility] [address] [id number] [address] [place] [phone] May, [facility] [address] [facility] [id number] [address] [place] [phone] May, [facility] [address] [facility] [id number] [address] [place] [phone] May, Low back pain, unspecified b ack pain laterality, with sciatica presence unspecified M54.5 [facility] [address] [facility] [id number] [address] [place] [phone] Apr, Breast pain, left N64.4 ; Le ft arm pain M79.602 and Family history of diabetes mellitus Z83.3 [facility] [address] [id number] [address] [place] [phone] Apr, Low back pain, unspecified b ack pain laterality, with sciatica presence unspecified M54.5 [place] [id number] [facility] [id number] [address] [place] [phone] Apr, [facility] [address] [id number] [address] [place] [id number] 28 Mar, 2016 Onychomycosis B35.1 and Self -care deficit for hygiene R46.0 [facility] [address] [id number] [address] [place] [id number] 17 Mar, 2016 Low back pain, unspecified b ack pain laterality, with sciatica presence unspecified M54.5 [facility] [address] [id number] [address] [place] [id number] 14 Mar, 2016 Pain in left shoulder M25.51 2 and Other chronic pain G89.29 [facility] [address] [id number] [address] [place] [phone] 13 Mar, 2016 Arthralgia, unspecified join t M25.50 [facility] [address] [id number] [address] [place] [phone] 06 Mar, 2016 [facility] [address] [id number] [address] [place] [phone] Feb, Low back pain, unspecified b ack pain laterality, with sciatica presence unspecified M54.5 [facility] [address] [id number] [address] [place] [phone] Feb, [facility] [address] [id number] [address] [place] [id number] Feb, Dental examination Z01.20 [facility] [address] [id number] [address] [place] [id number] Feb, Dental examination Z01.20 [facility] [address] [id number] [address] [place] [phone] Feb, Cramp of both lower extremit ies R25.2 [facility] [address] [id number] [address] [place] [phone] Feb, [facility] [address] [id number] [address] [place] [phone] Jan, Hypoxemia R09.02 ; Episodic cluster headache, not intractable G44.019 and Cramp of both lower extremities R25.2 [place] [address] [place] [id number] [place] [phone] Jan, [facility] [address] [place] [id number] [place] [phone] Jan, Low back pain, unspecified b ack pain laterality, with sciatica presence unspecified M54.5 [place] [address] [address] Jan, Hypertrophy of nail L60.2 ; Onychomycosis B35.1 and Self-care deficit for hygiene R46.0 [place] [address] [address] Jan, Low back pain, unspecified b ack pain laterality, with sciatica presence unspecified M54.5 [place] [address] [address] Dec, Low back pain, unspecified b ack pain laterality, with sciatica presence unspecified M54.5 [facility] [address] [address] Dec, Bug bite with infection, ini tial encounter W57.XXXA [place] [address] [address] Nov, Low back pain, unspecified b ack pain laterality, with sciatica presence unspecified M54.5 [place] [address] [place] [address] Nov, [place] [address] [address] Nov, Chronic obstructive pulmonar y disease, unspecified COPD type J44.9 [facility] [address] [address] Nov, [facility] [address] [facility] [id number] [address] [place] [phone] Oct, [facility] [address] [facility] [id number] [address] [place] [phone] Oct, Onychomycosis B35.1 and Ingr own nail L60.0 [place] [address] [facility] [id number] [address] [place] [phone] Oct, Low back pain, unspecified b ack pain laterality, with sciatica presence unspecified M54.5 [place] [address] [facility] [id number] [address] [place] [phone] Sep, [place] [address] [place] [id number] [address] [place] [phone] Sep, Low back pain, unspecified b ack pain laterality, with sciatica presence unspecified M54.5 [place] [address] [place] [id number] [address] [place] [id number] Aug, [place] [address] [place] [id number] [address] [place] [id number] Aug, Cramp of both lower extremit ies R25.2 ; Breast cancer screening Z12.39 ; Hyperlipidemia, unspecified hyperlipidemia type E78.5 and Atypical mole L81.9 [place] [address] [place] [id number] [address] [place] [id number] Aug, Chronic obstructive pulmonar y disease, unspecified COPD type J44.9 [place] [address] [facility] [id number] [address] [place] [phone] Aug, Low back pain, unspecified b ack pain laterality, with sciatica presence unspecified M54.5 [place] [address] [facility] [id number] [address] [place] [phone] Aug, Atherosclerotic heart diseas e of [place] coronary artery without angina pectoris I25.10 [place] [address] [place] [id number] [address] [place] [phone] Jul, [facility] [address] [id number] [address] [place] [phone] Jul, [facility] [address] [id number] [address] [place] [phone] Jul, Allergic rhinitis, unspecifi ed allergic rhinitis type J30.9 [facility] [address] [id number] [address] [place] [id number] Jul, Low back pain, unspecified b ack pain laterality, with sciatica presence unspecified M54.5 [facility] [address] [id number] [address] [place] [id number] 07 Jul, 2015 Post-concussion headache G44 .309 and Arthralgia, unspecified joint M25.50 [place] [address] [id number] [address] [place] [id number] June, Chronic obstructive pulmonar y disease, unspecified COPD type J44.9 [facility] [address] [id number] [address] [place] [id number] June, [facility] [address] [id number] [address] [place] [id number] May, [facility] [address] [id number] [address] [place] [phone] May, [facility] [address] [id number] [address] [place] [id number] 30 Apr, 2015 Hip pain 719.45 and Atherosc lerotic heart disease of [place] coronary artery without angina pectoris I25.10 [facility] [address] [id number] [address] [place] [id number] Apr, History of self-care deficit Z86.59 ; Hypertrophy of nail L60.2 and Onychomycosis B35.1 [facility] [address] [id number] [address] [place] [phone] Apr, [facility] [address] [id number] [address] [place] [phone] Apr, Gastroenteritis K52.9 [facility] [address] [id number] [address] [place] [phone] Mar, [facility] [address] [id number] [address] [place] [phone] Mar, [facility] [address] [id number] [address] [place] [id number] Mar, [facility] [address] [id number] [address] [place] [id number] Mar, Acute pain due to injury G89 .11 and Other chronic pain G89.29 [facility] [address] [id number] [address] [place] [phone] Mar, [facility] [address] [id number] [address] [place] [phone] Mar, [facility] [address] [id number] [address] [place] [phone] Mar, [facility] [address] [id number] [address] [place] [id number] Mar, [facility] [address] [facility] [id number] [address] [place] [id number] Feb, Low back pain, unspecified b ack pain laterality, with sciatica presence unspecified M54.5 [facility] [address] [id number] [address] [place] [id number] Feb, [facility] [address] [id number] [address] [place] [id number] Jan, [facility] [address] [facility] [id number] [address] [place] [id number] Jan, Low back pain, unspecified b ack pain laterality, with sciatica presence unspecified M54.5 [facility] [address] [id number] [address] [place] [id number] Jan, Other chronic pain G89.29 an d Acute pain due to injury G89.11 [facility] [address] [id number] [address] [place] [id number] Dec, [facility] [address] [id number] [address] [place] [id number] Nov, Essential hypertension I10 a nd Viral infection, unspecified B34.9 [facility] [address] [id number] [address] [place] [phone] Nov, [facility] [address] [id number] [address] [place] [phone] Nov, [facility] [address] [id number] [address] [place] [id number] 30 Oct, 2014 [facility] [address] [address] [id number] [address] [place] [phone] Oct, [facility] [address] [id number] [address] [place] [phone] Oct, [facility] [address] [id number] [address] [place] [phone] Oct, [facility] [address] [id number] [address] [place] [id number] Sep, [facility] [address] [id number] [address] [place] [id number] Sep, Hypertrophy of nail 703.8 an d Self-care deficit for hygiene V40.39 [facility] [address] [id number] [address] [place] [phone] Sep, [facility] [address] [id number] [address] [place] [phone] Sep, [facility] [address] [id number] [address] [place] [phone] Aug, [facility] [address] [id number] [address] [place] [phone] Jul, Onychomycosis 110.1 and Ingr own nail 703.0 [facility] [address] [id number] [address] [place] [phone] Jul, Other screening mammogram V7 6.12 [facility] [address] [id number] [address] [place] [phone] Jul, [facility] [address] [id number] [address] [place] [phone] Jul, Hip pain 719.45 ; Visual dis turbance 368.9 and Conjunctivitis 372.30 [facility] [address] [id number] [address] [place] [phone] June, [facility] [address] [id number] [address] [place] [id number] June, [facility] [address] [id number] [address] [place] [phone] June, [facility] [address] [id number] [address] [place] [phone] June, [facility] [address] [id number] [address] [place] [phone] May, [facility] [address] [id number] [address] [place] [phone] May, [facility] [address] [id number] [address] [place] [phone] Apr, [facility] [address] [id number] [address] [place] [phone] Apr, [facility] [address] [id number] [address] [place] [phone] Apr, [facility] [address] [id number] [address] [place] [phone] Apr, [facility] [address] [id number] [address] [place] [phone] Mar, [facility] [address] [id number] [address] [place] [address], [place] [address] Mar, [facility] [address] [id number] [address] [place] [address], [place] [address] Feb, [facility] [address] [id number] [address] [place] [address], [place] [address] Feb, [facility] [address] [id number] [address] [place] [address], [place] [address] Feb, [facility] [address] [id number] [address] [place] [address], [place] [address] Jan, [facility] [address] [id number] [address] [place] [address], [place] [address] Jan, [facility] [address] [id number] [address] [place] [address], [place] [address] Jan, [facility] [address] [id number] [address] [place] [address], [place] [address] Jan, [facility] [address] [id number] [address] [place] [address], [place] [address] Jan, [facility] [address] [id number] [address] [place] [address], [place] [address] Jan, [facility] [address] [id number] [address] [place] [phone] Dec, [facility] [address] [id number] [address] [place] [phone] Nov, [facility] [address] [id number] [address] [place] [address], [place] [address] Nov, [facility] [address] [id number] [address] [place] [address], [place] [address] Nov, [facility] [address] [id number] [address] [place] [phone] Nov, [facility] [address] [id number] [address] [place] [phone] Nov, [facility] [address] [id number] [address] [place] [address], [place] [address] Nov, [facility] [address] [id number] [address] [place] [address], [place] [address] Nov, [facility] [address] [id number] [address] [place] [address], [place] [address] Nov, [facility] [address] [id number] [address] [place] [address], [place] [address] Nov, [facility] [address] [id number] [address] [place] [address], [place] [address] Nov, [facility] [address] [id number] [address] [place] [address], [place] [address] Oct, [facility] [address] [id number] [address] [place] [address], [place] [address] Oct, [facility] [address] [id number] [address] [place] [address], [place] [address] 24 Oct, 2013 [facility] [address] [id number] [address] [place] [address], [place] [address] 24 Oct, 2013 [facility] [address] [id number] [address] [place] [address], [place] [address] 15 Oct, 2013 [facility] [address] [id number] [address] [place] [address], [place] [address] 15 Oct, 2013 [facility] [address] [id number] [address] [place] [address], [place] [address] 04 Oct, 2013 [facility] [address] [id number] [address] [place] [address], [place] [address] 04 Oct, 2013 [facility] [address] [id number] [address] [place] [address], [place] [address] 15 Sep, 2013 [facility] [address] [id number] [address] [place] [address], [place] [address] 15 Sep, 2013 [facility] [address] [id number] [address] [place] [address] Sep, [facility] [address] [id number] [address] [place] [address] Sep, [facility] [address] [id number] [address] [place] [address] Aug, [facility] [address] [id number] [address] [place] [address] Aug, [facility] [address] [id number] [address] [place] [address] Aug, [facility] [address] [id number] [address] [place] [address] Aug, [facility] [address] [id number] [address] [place] [address], [place] [address] Aug, [facility] [address] [id number] [address] [place] [address], [place] [address] Aug, [facility] [address] [id number] [address] [place] [address], [place] [address] Aug, [facility] [address] [id number] [address] [place] [address], [place] [address] Aug, [facility] [address] [id number] [address] [place] [address], [place] [address] Jul, [facility] [address] [id number] [address] [place] [address], [place] [address] Jul, [facility] [address] [id number] [address] [place] [address], [place] [address] Jul, [facility] [address] [id number] [address] [place] [address], [place] [address] Jul, [facility] [address] [id number] [address] [place] [address], [place] [address] Jul, [facility] [address] [id number] [address] [place] [address], [place] [address] Jul, [facility] [address] [id number] [address] [place] [address] Jul, [facility] [address] [id number] [address] [place] [address], [place] [address] Jul, [facility] [address] [id number] [address] [place] [address], [place] [address] Jul, [facility] [address] [id number] [address] [place] [address], [place] [address] Jul, [facility] [address] [id number] [address] [place] [address], [place] [address] Jul, [facility] [address] [id number] [address] [place] [address], [place] [address] Jul, [facility] [address] [id number] [address] [place] [address], [place] [address] Jul, [facility] [address] [id number] [address] [place] [address], [place] [address] Jul, [facility] [address] [id number] [address] [place] [address], [place] [address] Jul, [facility] [address] [id number] [address] [place] [address], [place] [address] Jul, [facility] [address] [id number] [address] [place] [address], [place] [address] Jul, [facility] [address] [id number] [address] [place] [address], [place] [address] June, [facility] [address] [id number] [address] [place] [address], [place] [address] June, [facility] [address] [id number] [address] [place] [address], [place] [address] May, [facility] [address] [id number] [address] [place] [address], [place] [address] May, [facility] [address] [id number] [address] [place] [address] 10 May, 2013 [facility] [address] [id number] [address] [place] [address], [place] [address] 10 May, 2013 [facility] [address] [id number] [address] [place] [address] 17 Apr, 2013 [facility] [address] [id number] [address] [place] [address], [place] [address] 17 Apr, 2013 [facility] [address] [id number] [address] [place] [address], [place] [address] 13 Apr, 2013 [facility] [address] [id number] [address] [place] [address], [place] [address] 13 Apr, 2013 [facility] [address] [id number] [address] [place] [address], [place] [address] 11 Apr, 2013 [facility] [address] [id number] [address] [place] [address], [place] [address] 11 Apr, 2013 [facility] [address] [id number] [address] [place] [address], [place] [address] 10 Apr, 2013 [facility] [address] [id number] [address] [place] [address], [place] [address] 13 Mar, 2013 [facility] [address] [id number] [address] [place] [address], [place] [address] 13 Mar, 2013 [facility] [address] [id number] [address] [place] [address], [place] [address] Mar, [facility] [address] [id number] [address] [place] [address], [place] [address] Mar, [facility] [address] [id number] [address] [place] [address], [place] [address] Feb, [facility] [address] [id number] [address] [place] [address], [place] [address] Feb, [facility] [address] [id number] [address] [place] [address], [place] [address] Feb, [facility] [address] [id number] [address] [place] [address], [place] [address] Feb, [facility] [address] [id number] [address] [place] [address], [place] [address] Jan, [facility] [address] [id number] [address] [place] [address], [place] [address] Jan, [facility] [address] [id number] [address] [place] [address], [place] [address] Jan, [facility] [address] [id number] [address] [place] [address], [place] [address] Jan, [facility] [address] [id number] [address] [place] [address], [place] [address] Dec, [facility] [address] [id number] [address] [place] [address], [place] [address] Dec, [facility] [address] [id number] [address] [place] [address] Dec, [facility] [address] [id number] [address] [place] [address], [place] [address] Dec, [facility] [address] [id number] [address] [place] [id number] Dec, [facility] [address] [id number] [address] [place] [address] Nov, [facility] [address] [id number] [address] [place] [address] Nov, [facility] [address] [id number] [address] [place] [address] Nov, [facility] [address] [id number] [address] [place] [address] Nov, [facility] [address] [id number] [address] [place] [address] Nov, [facility] [address] [id number] [address] [place] [address] Nov, [facility] [address] [id number] [address] [place] [address], [place] [address] Nov, [facility] [address] [id number] [address] [place] [address], [place] [address] Nov, [facility] [address] [id number] [address] [place] [address], [place] [address] Oct, [facility] [address] [id number] [address] [place] [address], [place] [address] Oct, [facility] [address] [id number] [address] [place] [address], [place] [address] Sep, [facility] [address] [id number] [address] [place] [address], [place] [address] Sep, [facility] [address] [id number] [address] [place] [address], [place] [address] Sep, [facility] [address] [id number] [address] [place] [address], [place] [address] Sep, [facility] [address] [id number] [address] [place] [address], [place] [address] Sep, [facility] [address] [id number] [address] [place] [address], [place] [address] Sep, [facility] [address] [id number] [address] [place] [address], [place] [address] Sep, [facility] [address] [id number] [address] [place] [address], [place] [address] Aug, [facility] [address] [id number] [address] [place] [address], [place] [address] Aug, [facility] [address] [id number] [address] [place] [address], [place] [address] Aug, [facility] [address] [id number] [address] [place] [address], [place] [address] Aug, [facility] [address] [id number] [address] [place] [address] 16 Aug, 2012 [facility] [address] [id number] [address] [place] [address], [place] [address] 15 Aug, 2012 [facility] [address] [id number] [address] [place] [address], [place] [address] 05 Aug, 2012 [facility] [address] [id number] [address] [place] [address], [place] [address] Aug, [facility] [address] [id number] [address] [place] [address], [place] [address] Jul, [facility] [address] [id number] [address] [place] [address], [place] [address] Jul, [facility] [address] [id number] [address] [place] [address], [place] [address] Jul, [facility] [address] [id number] [address] [place] [address], [place] [address] Jul, [facility] [address] [id number] [address] [place] [address], [place] [address] June, [facility] [address] [id number] [address] [place] [address], [place] [address] June, [facility] [address] [id number] [address] [place] [address], [place] [address] June, [facility] [address] [id number] [address] [place] [address], [place] [address] June, [facility] [address] [id number] [address] [place] [address], [place] [address] June, [facility] [address] [id number] [address] [place] [address], [place] [address] May, [facility] [address] [id number] [address] [place] [address], [place] [address] May, [facility] [address] [id number] [address] [place] [address], [place] [address] 16 May, 2012 [facility] [address] [id number] [address] [place] [address], [place] [address] 04 May, 2012 [facility] [address] [id number] [address] [place] [address], [place] [address] 26 Apr, 2012 [facility] [address] [id number] [address] [place] [address], [place] [address] 25 Apr, 2012 [facility] [address] [id number] [address] [place] [address], [place] [address] 08 Apr, 2012 [facility] [address] [id number] [address] [place] [address], [place] [address] 07 Apr, 2012 [facility] [address] [id number] [address] [place] [address], [place] [address] 21 Mar, 2012 [facility] [address] [id number] [address] [place] [address], [place] [address] 15 Mar, 2012 [facility] [address] [id number] [address] [place] [address], [place] [address] 13 Mar, 2012 [facility] [address] [id number] [address] [place] [address], [place] [address] 07 Mar, 2012 [facility] [address] [id number] [address] [place] [address], [place] [address] 07 Feb, 2012 [facility] [address] [id number] [address] [place] [address], [place] [address] Jan, [facility] [address] [id number] [address] [place] [address], [place] [address] Jan, [facility] [address] [id number] [address] [place] [address], [place] [address] Jan, [facility] [address] [id number] [address] [place] [address], [place] [address] Dec, [facility] [address] [id number] [address] [place] [address], [place] [address] Dec, [facility] [address] [id number] [address] [place] [address], [place] [address] 28 Dec, 2011 [facility] [address] [id number] [address] [place] [address], [place] [address] 28 Dec, 2011 [facility] [address] [id number] [address] [place] [address], [place] [address] 15 Dec, 2011 [facility] [address] [id number] [address] [place] [address], [place] [address] 15 Dec, 2011 [facility] [address] [id number] [address] [place] [address], [place] [address] 14 Dec, 2011 [facility] [address] [id number] [address] [place] [address], [place] [address] 07 Dec, 2011 [facility] [address] [id number] [address] [place] [address], [place] [address] Dec, [facility] [address] [id number] [address] [place] [address], [place] [address] 17 Nov, 2011 [facility] [address] [id number] [address] [place] [address], [place] [address] 17 Nov, 2011 [facility] [address] [id number] [address] [place] [address], [place] [address] Nov, [facility] [address] [id number] [address] [place] [address], [place] [address] Nov, [facility] [address] [id number] [address] [place] [address], [place] [address] 10 Nov, 2011 [facility] [address] [id number] [address] [place] [address], [place] [address] 10 Nov, 2011 [facility] [address] [id number] [address] [place] [address], [place] [address] 12 Oct, 2011 [facility] [address] [id number] [address] [place] [address], [place] [address] 16 Sep, 2011 [facility] [address] [id number] [address] [place] [address], [place] [address] Sep, [facility] [address] [id number] [address] [place] [address], [place] [address] Aug, [facility] [address] [id number] [address] [place] [address], [place] [address] Aug, [facility] [address] [id number] [address] [place] [address], [place] [address] Aug, [facility] [address] [id number] [address] [place] [address], [place] [address] Aug, [facility] [address] [id number] [address] [place] [address], [place] [address] Aug, [facility] [address] [id number] [address] [place] [address], [place] [address] Jul, [facility] [address] [id number] [address] [place] [address], [place] [address] Jul, [facility] [address] [id number] [address] [place] [address], [place] [address] June, [facility] [address] [id number] [address] [place] [address], [place] [address] June, [facility] [address] [id number] [address] [place] [address], [place] [address] June, [facility] [address] [id number] [address] [place] [address], [place] [address] June, [facility] [address] [id number] [address] [place] [address], [place] [address] May, [facility] [address] [id number] [address] [place] [address], [place] [address] Apr, [facility] [address] [id number] [address] [place] [address], [place] [address] Apr, [facility] [address] [id number] [address] [place] [address], [place] [address] Apr, [facility] [address] [id number] [address] [place] [address], [place] [address] 08 Apr, 2011 [facility] [address] [id number] [address] [place] [address], [place] [address] Apr, [facility] [address] [id number] [address] [place] [address], [place] [address] Mar, [facility] [address] [id number] [address] [place] [address], [place] [address] Mar, [facility] [address] [id number] [address] [place] [address], [place] [address] Mar, [facility] [address] [id number] [address] [place] [address], [place] [address] Feb, [facility] [address] [id number] [address] [place] [address], [place] [address] Feb, [facility] [address] [id number] [address] [place] [address], [place] [address] Feb, [facility] [address] [id number] [address] [place] [address], [place] [address] Feb, [facility] [place] [address] [id number] [address] [place] [address], [place] [address] Feb, [facility] [address] [id number] [address] [place] [address], [place] [address] Feb, [facility] [place] [address] [id number] [address] [place] [address], [place] [address] Jan, [facility] [address] [id number] [address] [place] [address], [place] [address] Jan, [facility] [address] [id number] [address] [place] [address], [place] [address] Jan, [facility] [address] [id number] [address] [place] [address], [place] [address] Jan, [facility] [address] [id number] [address] [place] [address], [place] [address] Jan, [facility] [address] [id number] [address] [place] [address], [place] [address] 16 Jul, 2010 [facility] [address] [id number] [address] [place] [address], [place] [address] June, [facility] [address] [id number] [address] [place] [address], [place] [address] 13 Feb, 2010 [facility] [address] [id number] [address] [place] [address], [place] [address] 20 Jan, 2010 [facility] [address] [id number] [address] [place] [address], [place] [address] Sep, [facility] [address] [id number] [address] [place] [address], [place] [address] 20 Aug, 2009 [facility] [address] [id number] [address] [place] [address], [place] [address] 14 May, 2009 [facility] [address] [id number] [address] [place] [address], [place] [address] Apr, [facility] [address] [id number] [address] [place] [address], [place] [address] Jan, [facility] [place] [address] [id number] [address] [place] [address], [place] [address] Jan, [facility] [address] [id number] [address] [place] [address], [place] [address] Jan, [facility] [address] [id number] [address] [place] [address], [place] [address] Dec, [facility] [address] [id number] [address] [place] [address], [place] [address] Dec, [facility] [address] [id number] [address] [place] [address], [place] [address] Nov, [facility] [address] [id number] [address] [place] [address], [place] [address] Nov, [facility] [address] [id number] [address] [place] [address], [place] [address] Nov, IMMUNIZATIONS No Known Immunizations SOCIAL HISTORY Never Assessed REASON FOR VISIT PLAN OF CARE VITAL SIGNS Height 62 in 2012-08-07 Weight 173.3 lbs 2012-08-07 Temperature 97.2 degrees Fahrenheit 2012-08-07 Heart Rate 72 bpm 2012-08-07 Respiratory Rate 18 2012-08-07 Blood pressure systolic 126 mmHg 2012-08-07 Blood pressure diastolic 70 mmHg 2012-08-07 MEDICATIONS Unknown Medications RESULTS No Results PROCEDURES [...] Surgical History rectocele/cystocele repair, pessary fitt ed ([facility]) 05/2013 Surgical History Suspicious lesion removal 2015 Surgical History heart cath 03/03/2019 Hospitalization History [facility] acute gastoentereritis, dehydrati on 06/06 Hospitalization History Heart Cath 2014 Hospitalization History ER visit- 09/2018
--- OUTSIDE RECORDS SUMMARY | 2019-07-19 09:29 | XMS REPORT ---
Author Author Juanita PATIÑO Organization [facility] Address [address] [place] [address] Care Team Providers Care Adobe Maker Name Role Phone FUENTES PATIÑO Unavailable PROBLEMS Type Condition ICD9-CM Code OJJ21-BI Code Onset Dates Condition S tatus SNOMED Code Problem Episodic cluster headache, not intractable G44.019 Active 409018128 Problem Angina pectoris, unspecified I20.9 A ctive 657202828 Problem Acute bilateral low back pain with left-sided sciatica M54.42 Active 76511792 Problem Other chronic pain G89.29 Active 8 6189803 Problem Lumbago with sciatica, right side M54.41 Active 584748842 Problem Lumbago with sciatica, left side M54.42 Active 885585916 Problem COPD exacerbation J44.1 Active 29 [id number] Problem Anxiety F41.9 Active 63083092 Problem Major depressive disorder, recurrent, mild F33.0 Active 866295255 Problem History of diabetes mellitus, type II Z86.39 Active 605152192 Problem Other chronic pain G89.29 Active 8 8257549 Problem Hyperlipidemia, unspecified hyperlipidemia type E7 8.5 Active 46910549 Problem 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.0 Active 447292430 Problem Chronic obstructive pulmonary disease, unspecified COPD ty pe J44.9 Active 81256584 Problem Essential hypertension I10 Active 92455968 Problem Seasonal allergic rhinitis due to pollen J30.1 Active 22047726 Problem 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 Active 9289719904542 Problem Hypoglycemia E16.2 Active 3976002 03 Problem 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 Active 208599850317 7 Problem Primary osteoarthritis of right knee M17.11 Active [id number] Problem Dysphagia, unspecified type R13.10 Ac tive 60874081 ALLERGIES No Information ENCOUNTERS Encounter Location Date Diagnosis [place] [address] [address] Jul, [place] [address] [address] May, Nail hypertrophy L60.2 ; 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 and Self-care deficit for grooming and hygiene Z74.1 [place] [address] [address] May, [place] [address] [address] 30 Apr, 2019 Dysphagia, unspecified type R13.10 ; 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.118 and Breast cancer screening by mammogram Z12.31 [place] [address] [address] 10 Apr, 2019 Low back pain, unspecified b ack pain laterality, with sciatica presence unspecified M54.5 ; Onychomycosis B35.1 ; Other chronic pain G89.29 ; Chronic obstructive pulmonary disease, unspecified COPD type J44.9 ; Essential hypertension I10 ; Family history of diabetes mellitus Z83.3 ; Hyperlipidemia, unspecified hyperlipidemia type E78.5 ; Anxiety F41.9 and 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 [place] [address] [place] [id number] [place] [address] Mar, Primary osteoarthritis of ri ght knee M17.11 [place] [address] [place] [id number] [address] [place] [address] Mar, [place] [address] [address] Feb, Onychomycosis B35.1 ; Nail h ypertrophy L60.2 and Self-care deficit for grooming and hygiene Z74.1 [place] [id number] [place] [address] Jan, Posterior right knee pain M2 5.561 ; Pain in left leg M79.605 ; Pain in right leg M79.604 ; 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.118 and Encounter for immunization Z23 [facility] [address] [facility] [id number] [place] [address] Dec, Nail hypertrophy L60.2 ; Lakshmi chomycosis B35.1 and Self-care deficit for grooming and hygiene Z74.1 [place] [address] [facility] [id number] [place] [address] Oct, [place] [address] [facility] [id number] [place] [address] Sep, Other chest pain R07.89 [place] [address] [place] [id number] [place] [address] Sep, [facility] [address] [place] [id number] [place] [address] Sep, Cellulitis of groin L03.314 [place] [address] [place] [id number] [place] [address] Sep, Nail hypertrophy L60.2 and S elf-care deficit for grooming and hygiene Z74.1 [facility] [address] [place] [id number] [place] [address] Aug, [place] [address] [facility] [id number] [place] [address] Aug, Hypoglycemia E16.2 ; Nonintr actable episodic headache, unspecified headache type R51 and Candidiasis of breast B37.89 [facility] [address] [facility] [id number] [address] [place] [address] Aug, Nail hypertrophy L60.2 and S elf-care deficit for grooming and hygiene Z74.1 [place] [address] [facility] [id number] [address] [place] [address] June, [facility] [address] [facility] [id number] [address] [place] [address] May, Bee sting, accidental or uni ntentional, initial encounter T63.441A [place] [address] [address] Apr, Primary osteoarthritis invol ving multiple joints M15.0 ; Angina pectoris, unspecified I20.9 ; History of diabetes mellitus, type II Z86.39 and Chronic obstructive pulmonary disease, unspecified COPD type J44.9 [place] [address] [address] Apr, Nail hypertrophy L60.2 and S [facility] deficit for grooming and hygiene Z74.1 [place] [address] [address] Mar, [facility] [address] [address] Mar, Low back pain M54.5 [place] [address] [address] Mar, [facility] [address] [place] [id number] [address] [place] [address] Feb, [place] [address] [address] Feb, [place] [address] [address] Feb, Encounter for Medicare annua l wellness exam Z00.00 ; Major depressive disorder, recurrent, mild F33.0 ; Chronic obstructive pulmonary disease, unspecified COPD type J44.9 ; 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 ; Primary osteoarthritis involving multiple joints M15.0 ; Angina pectoris, unspecified I20.9 and 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 [place] [address] [place] [id number] [place] [address] Jan, [facility] [address] [address] Jan, [facility] [address] [place] [address] Dec, Chronic obstructive pulmonar y disease, unspecified COPD type J44.9 ; Low back pain M54.5 ; Other chronic pain G89.29 and Moderate episode of recurrent major depressive disorder F33.1 [place] [address] [place] [address] Nov, [place] [address] [place] [id number] [place] [address] Nov, Encounter for immunization Z 23 [place] [address] [address] Nov, Allergic rhinitis due to ned iona, unspecified seasonality J30.1 ; Primary osteoarthritis involving multiple joints M15.0 and Encounter for immunization Z23 [place] [address] [address] Oct, Nail hypertrophy L60.2 and S elf-care deficit for hygiene R46.0 [facility] [address] [address] 05 Oct, 2017 Chest congestion R09.89 ; So re throat J02.9 and Cough R05 [place] [address] [place] [id number] [place] [address] Sep, [facility] [address] [place] [id number] [place] [address] Aug, Low back pain M54.5 ; Other chronic pain G89.29 ; Pain in right knee M25.561 ; Pain in left knee M25.562 and Rash R21 [place] [address] [place] [id number] [address] [place] [address] Aug, Nail hypertrophy L60.2 and S elf-care deficit for hygiene R46.0 [facility] [address] [place] [id number] [address] [place] [address] June, Hypertrophy of nail L60.2 an d Self-care deficit for hygiene R46.0 [facility] [address] [facility] [id number] [address] [place] [address] June, [facility] [address] [facility] [id number] [address] [place] [address] June, COPD exacerbation J44.1 [facility] [address] [facility] [id number] [address] [place] [address] May, [facility] [address] [facility] [id number] [address] [place] [address] Apr, Seasonal allergic rhinitis d ue to pollen J30.1 ; Encounter for immunization Z23 ; COPD exacerbation J44.1 ; Encounter for screening mammogram for breast cancer Z12.31 and Colon cancer screening Z12.11 [place] [address] [place] [id number] [place] [address] Apr, [place] [address] [place] [id number] [place] [address] Feb, Lumbago with sciatica, right side M54.41 ; Lumbago with sciatica, left side M54.42 ; Other chronic pain G89.29 ; Left hip pain M25.552 and Anxiety F41.9 [facility] [address] [place] [id number] [address] [place] [address] Jan, History of asthma Z87.09 ; C OPD exacerbation J44.1 and Acute non-recurrent maxillary sinusitis J01.00 [facility] [address] [facility] [id number] [address] [place] [address] Jan, Other chronic pain G89.29 an d Acute bilateral low back pain with left-sided sciatica M54.42 [facility] [address] [facility] [id number] [address] [place] [address] 14 Jan, 2017 Other chronic pain G89.29 an d Acute bilateral low back pain with left-sided sciatica M54.42 [facility] [address] [address] Dec, Trochanteric bursitis of lef t hip M70.62 ; Left hip pain M25.552 and Other chronic pain G89.29 [facility] [address] [address] Nov, Local reaction to insect sti ng, accidental or unintentional, initial encounter T63.481A and Acute dermatitis L30.9 [place] [address] [address] Nov, Breast cancer screening Z12. 31 [place] [address] [address] Nov, Acute bilateral low back rangel n with left-sided sciatica M54.42 and Low back pain, unspecified back pain laterality, with sciatica presence unspecified M54.5 [facility] [address] [address] Oct, Acute bilateral low back rangel n with left-sided sciatica M54.42 [place] [address] [address] Sep, Low back pain, unspecified b ack pain laterality, with sciatica presence unspecified M54.5 [place] [address] [address] Sep, [place] [address] [address] Aug, Nail hypertrophy L60.2 ; Lakshmi chomycosis B35.1 and Self-care deficit for hygiene R46.0 [place] [address] [address] Aug, [place] [address] [address] Aug, [facility] [address] [address] Jul, Rash R21 [facility] [address] [id number] [address] [place] [address] Jul, [facility] [address] [facility] [id number] [address] [place] [address] Jul, Low back pain, unspecified b ack pain laterality, with sciatica presence unspecified M54.5 [facility] [address] [id number] [address] [place] [address] June, Nail hypertrophy L60.2 ; Marilee f-care deficit for hygiene R46.0 and Other chronic pain G89.29 [place] [address] [facility] [id number] [address] [place] [address] June, Low back pain, unspecified b ack pain laterality, with sciatica presence unspecified M54.5 [place] [address] [facility] [id number] [address] [place] [address] May, [facility] [address] [id number] [address] [place] [address] May, [facility] [address] [facility] [id number] [address] [place] [address] May, [facility] [address] [facility] [id number] [address] [place] [address] May, Low back pain, unspecified b ack pain laterality, with sciatica presence unspecified M54.5 [facility] [address] [facility] [id number] [address] [place] [address] Apr, Breast pain, left N64.4 ; Le ft arm pain M79.602 and Family history of diabetes mellitus Z83.3 [facility] [address] [id number] [address] [place] [address] Apr, Low back pain, unspecified b ack pain laterality, with sciatica presence unspecified M54.5 [place] [address] [facility] [id number] [address] [place] [address] Apr, [facility] [address] [id number] [address] [place] [address] 28 Mar, 2016 Onychomycosis B35.1 and Self -care deficit for hygiene R46.0 [facility] [address] [id number] [address] [place] [address] 17 Mar, 2016 Low back pain, unspecified b ack pain laterality, with sciatica presence unspecified M54.5 [facility] [address] [id number] [address] [place] [address] 14 Mar, 2016 Pain in left shoulder M25.51 2 and Other chronic pain G89.29 [facility] [address] [id number] [address] [place] [address] 13 Mar, 2016 Arthralgia, unspecified join t M25.50 [facility] [address] [id number] [address] [place] [address] 06 Mar, 2016 [facility] [address] [id number] [address] [place] [address] Feb, Low back pain, unspecified b ack pain laterality, with sciatica presence unspecified M54.5 [facility] [address] [id number] [address] [place] [address] Feb, [facility] [address] [id number] [address] [place] [id number] Feb, Dental examination Z01.20 [facility] [address] [id number] [address] [place] [id number] Feb, Dental examination Z01.20 [facility] [address] [id number] [address] [place] [address] Feb, Cramp of both lower extremit ies R25.2 [facility] [address] [id number] [address] [place] [address] Feb, [facility] [address] [id number] [address] [place] [address] Jan, Hypoxemia R09.02 ; Episodic cluster headache, not intractable G44.019 and Cramp of both lower extremities R25.2 [place] [address] [place] [id number] [place] [address] Jan, [facility] [address] [place] [id number] [place] [address] Jan, Low back pain, unspecified b ack pain laterality, with sciatica presence unspecified M54.5 [place] [address] [address] Jan, Hypertrophy of nail L60.2 ; Onychomycosis B35.1 and Self-care deficit for hygiene R46.0 [place] [address] [address] Jan, Low back pain, unspecified b ack pain laterality, with sciatica presence unspecified M54.5 [place] [address] [address] Dec, Low back pain, unspecified b ack pain laterality, with sciatica presence unspecified M54.5 [facility] [address] [address] Dec, Bug bite with infection, ini tial encounter W57.XXXA [place] [address] [address] Nov, Low back pain, unspecified b ack pain laterality, with sciatica presence unspecified M54.5 [place] [address] [place] [address] Nov, [place] [address] [address] Nov, Chronic obstructive pulmonar y disease, unspecified COPD type J44.9 [facility] [address] [address] Nov, [facility] [address] [facility] [id number] [address] [place] [address] Oct, [facility] [address] [facility] [id number] [address] [place] [address] Oct, Onychomycosis B35.1 and Ingr own nail L60.0 [place] [address] [facility] [id number] [address] [place] [address] Oct, Low back pain, unspecified b ack pain laterality, with sciatica presence unspecified M54.5 [place] [address] [facility] [id number] [address] [place] [address] Sep, [place] [address] [place] [id number] [address] [place] [address] Sep, Low back pain, unspecified b ack pain laterality, with sciatica presence unspecified M54.5 [place] [address] [place] [id number] [address] [place] [address] Aug, [place] [address] [place] [id number] [place] [address] Aug, Cramp of both lower extremit ies R25.2 ; Breast cancer screening Z12.39 ; Hyperlipidemia, unspecified hyperlipidemia type E78.5 and Atypical mole L81.9 [place] [address] [place] [id number] [address] [place] [address] Aug, Chronic obstructive pulmonar y disease, unspecified COPD type J44.9 [place] [address] [facility] [id number] [address] [place] [address] Aug, Low back pain, unspecified b ack pain laterality, with sciatica presence unspecified M54.5 [place] [address] [facility] [id number] [address] [place] [address] Aug, 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 [place] [address] [place] [id number] [address] [place] [address] Jul, [facility] [address] [id number] [address] [place] [address] Jul, [facility] [address] [id number] [address] [place] [address] Jul, Allergic rhinitis, unspecifi ed allergic rhinitis type J30.9 [facility] [address] [id number] [address] [place] [address] Jul, Low back pain, unspecified b ack pain laterality, with sciatica presence unspecified M54.5 [facility] [address] [id number] [address] [place] [address] 07 Jul, 2015 Post-concussion headache G44 .309 and Arthralgia, unspecified joint M25.50 [place] [address] [id number] [address] [place] [address] June, Chronic obstructive pulmonar y disease, unspecified COPD type J44.9 [facility] [address] [id number] [address] [place] [address] June, [facility] [address] [id number] [address] [place] [address] May, [facility] [address] [id number] [address] [place] [address] May, [facility] [address] [id number] [address] [place] [address] 30 Apr, 2015 Hip pain 719.45 and Atherosc lerotic heart disease of hughes coronary artery without angina pectoris I25.10 [facility] [address] [id number] [address] [place] [address] Apr, History of self-care deficit Z86.59 ; Hypertrophy of nail L60.2 and Onychomycosis B35.1 [facility] [address] [id number] [address] [place] [address] Apr, [facility] [address] [id number] [address] [place] [address] Apr, Gastroenteritis K52.9 [facility] [address] [id number] [address] [place] [address] Mar, [facility] [address] [id number] [address] [place] [address] Mar, [facility] [address] [id number] [address] [place] [address] Mar, [facility] [address] [id number] [address] [place] [address] Mar, Acute pain due to injury G89 .11 and Other chronic pain G89.29 [facility] [address] [id number] [address] [place] [address] Mar, [facility] [address] [id number] [address] [place] [address] Mar, [facility] [address] [id number] [address] [place] [address] Mar, [facility] [address] [id number] [address] [place] [address] Mar, [facility] [address] [facility] [id number] [address] [place] [address] Feb, Low back pain, unspecified b ack pain laterality, with sciatica presence unspecified M54.5 [facility] [address] [id number] [address] [place] [address] Feb, [facility] [address] [id number] [address] [place] [address] Jan, [facility] [address] [facility] [id number] [address] [place] [address] Jan, Low back pain, unspecified b ack pain laterality, with sciatica presence unspecified M54.5 [facility] [address] [id number] [address] [place] [address] Jan, Other chronic pain G89.29 an d Acute pain due to injury G89.11 [facility] [address] [id number] [address] [place] [address] Dec, [facility] [address] [id number] [address] [place] [address] Nov, Essential hypertension I10 a nd Viral infection, unspecified B34.9 [facility] [address] [id number] [address] [place] [address] Nov, [facility] [address] [id number] [address] [place] [address] Nov, [facility] [address] [id number] [address] [place] [address] 30 Oct, 2014 [facility] [address] [id number] [address] [place] [address] Oct, [facility] [address] [id number] [address] [place] [id number] Oct, [facility] [address] [id number] [address] [place] [id number] Oct, [facility] [address] [id number] [address] [place] [id number] Sep, [facility] [address] [id number] [address] [place] [id number] Sep, Hypertrophy of nail 703.8 an d Self-care deficit for hygiene V40.39 [facility] [address] [id number] [address] [place] [id number] Sep, [facility] [address] [id number] [address] [place] [id number] Sep, [facility] [address] [id number] [address] [place] [id number] Aug, [facility] [address] [id number] [address] [place] [id number] Jul, Onychomycosis 110.1 and Ingr own nail 703.0 [facility] [address] [id number] [address] [place] [id number] Jul, Other screening mammogram V7 6.12 [facility] [address] [id number] [address] [place] [id number] Jul, [facility] [address] [address] [id number] [address] [place] [address] Jul, Hip pain 719.45 ; Visual dis turbance 368.9 and Conjunctivitis 372.30 [facility] [address] [id number] [address] [place] [address] June, [facility] [address] [id number] [address] [place] [id number] June, [facility] [address] [id number] [address] [place] [address] June, [facility] [address] [id number] [address] [place] [phone] June, [facility] [address] [id number] [address] [place] [id number] May, [facility] [address] [id number] [address] [place] [address] May, [facility] [address] [id number] [address] [place] [id number] Apr, [facility] [address] [id number] [address] [place] [id number] Apr, [facility] [address] [id number] [address] [place] [id number] Apr, [facility] [address] [id number] [address] [place] [id number] Apr, [facility] [address] [id number] [address] [place] [id number] Mar, [facility] [address] [id number] [address] [place] [address], [place] [address] Mar, [facility] [address] [id number] [address] [place] [address], [place] [address] Feb, [facility] [address] [id number] [address] [place] [address], [place] [address] Feb, [facility] [address] [id number] [address] [place] [address], [place] [address] Feb, [facility] [address] [id number] [address] [place] [address], [place] [address] Jan, [facility] [address] [id number] [address] [place] [address], [place] [address] Jan, [facility] [address] [id number] [address] [place] [address], [place] [address] Jan, [facility] [address] [id number] [address] [place] [address], [place] [address] Jan, [facility] [address] [id number] [address] [place] [address], [place] [address] Jan, [facility] [address] [id number] [address] [place] [address], [place] [address] Jan, [facility] [address] [id number] [address] [place] [phone] Dec, [facility] [address] [id number] [address] [place] [id number] Nov, [facility] [address] [id number] [address] [place] [address], [place] [address] Nov, [facility] [address] [id number] [address] [place] [address], [place] [address] Nov, [facility] [address] [id number] [address] [place] [id number] Nov, [facility] [address] [id number] [address] [place] [id number] Nov, [facility] [address] [id number] [address] [place] [address], [place] [address] Nov, [facility] [address] [id number] [address] [place] [address], [place] [address] Nov, [facility] [address] [id number] [address] [place] [address], [place] [address] Nov, [facility] [address] [id number] [address] [place] [address], [place] [address] Nov, [facility] [address] [id number] [address] [place] [address], [place] [address] Nov, [facility] [address] [id number] [address] [place] [address], [place] [address] Oct, [facility] [address] [id number] [address] [place] [address], [place] [address] Oct, [facility] [address] [id number] [address] [place] [address], [place] [address] 24 Oct, 2013 [facility] [address] [id number] [address] [place] [address], [place] [address] 24 Oct, 2013 [facility] [address] [id number] [address] [place] [address], [place] [address] 15 Oct, 2013 [facility] [address] [id number] [address] [place] [address], [place] [address] 15 Oct, 2013 [facility] [address] [id number] [address] [place] [address], [place] [address] 04 Oct, 2013 [facility] [address] [id number] [address] [place] [address], [place] [address] 04 Oct, 2013 [facility] [address] [id number] [address] [place] [address], [place] [address] 15 Sep, 2013 [facility] [address] [id number] [address] [place] [address], [place] [address] 15 Sep, 2013 [facility] [address] [id number] [facility] [place] [address] Sep, [facility] [address] [id number] [facility] [place] [address] Sep, [facility] [address] [id number] [facility] [place] [address] Aug, [facility] [address] [id number] [facility] [place] [address] Aug, [facility] [address] [id number] [facility] [place] [address] Aug, [facility] [address] [id number] [facility] [place] [address] Aug, [facility] [address] [id number] [address] [place] [address], [place] [address] Aug, [facility] [address] [id number] [address] [place] [address], [place] [address] Aug, [facility] [address] [id number] [address] [place] [address], [place] [address] Aug, [facility] [address] [id number] [address] [place] [address], [place] [address] Aug, [facility] [address] [id number] [address] [place] [address], [place] [address] Jul, [facility] [address] [id number] [address] [place] [address], [place] [address] Jul, [facility] [address] [id number] [address] [place] [address], [place] [address] Jul, [facility] [address] [id number] [address] [place] [address], [place] [address] Jul, [facility] [address] [id number] [address] [place] [address], [place] [address] Jul, [facility] [address] [id number] [address] [place] [address], [place] [address] Jul, [facility] [address] [id number] [facility] [place] [address] Jul, [facility] [address] [id number] [address] [place] [address], [place] [address] Jul, [facility] [address] [id number] [address] [place] [address], [place] [address] Jul, [facility] [address] [id number] [address] [place] [address], [place] [address] Jul, [facility] [address] [id number] [address] [place] [address], [place] [address] Jul, [facility] [address] [id number] [address] [place] [address], [place] [address] Jul, [facility] [address] [id number] [address] [place] [address], [place] [address] Jul, [facility] [address] [id number] [address] [place] [address], [place] [address] Jul, [facility] [address] [id number] [address] [place] [address], [place] [address] Jul, [facility] [address] [id number] [address] [place] [address], [place] [address] Jul, [facility] [address] [id number] [address] [place] [address], [place] [address] Jul, [facility] [address] [id number] [address] [place] [address], [place] [address] June, [facility] [address] [id number] [address] [place] [address], [place] [address] June, [facility] [address] [id number] [address] [place] [address], [place] [address] May, [facility] [address] [id number] [address] [place] [address], [place] [address] May, [facility] [address] [id number] [facility] [place] [address] 10 May, 2013 [facility] [address] [id number] [address] [place] [address], [place] [address] 10 May, 2013 [facility] [address] [id number] [facility] [place] [address] 17 Apr, 2013 [facility] [address] [id number] [address] [place] [address], [place] [address] 17 Apr, 2013 [facility] [address] [id number] [address] [place] [address], [place] [address] 13 Apr, 2013 [facility] [address] [id number] [address] [place] [address], [place] [address] 13 Apr, 2013 [facility] [address] [id number] [address] [place] [address], [place] [address] 11 Apr, 2013 [facility] [address] [id number] [address] [place] [address], [place] [address] 11 Apr, 2013 [facility] [address] [id number] [address] [place] [address], [place] [address] 10 Apr, 2013 [facility] [address] [id number] [address] [place] [address], [place] [address] 13 Mar, 2013 [facility] [address] [id number] [address] [place] [address], [place] [address] 13 Mar, 2013 [facility] [address] [id number] [address] [place] [address], [place] [address] Mar, [facility] [address] [id number] [address] [place] [address], [place] [address] Mar, [facility] [address] [id number] [address] [place] [address], [place] [address] Feb, [facility] [address] [id number] [address] [place] [address], [place] [address] Feb, [facility] [address] [id number] [address] [place] [address], [place] [address] Feb, [facility] [address] [id number] [address] [place] [address], [place] [address] Feb, [facility] [address] [id number] [address] [place] [address], [place] [address] Jan, [facility] [address] [id number] [address] [place] [address], [place] [address] Jan, [facility] [address] [id number] [address] [place] [address], [place] [address] Jan, [facility] [address] [id number] [address] [place] [address], [place] [address] Jan, [facility] [address] [id number] [address] [place] [address], [place] [address] Dec, [facility] [address] [id number] [address] [place] [address], [place] [address] Dec, [facility] [address] [id number] [address] [place] [address] Dec, [facility] [address] [id number] [address] [place] [address], [place] [address] Dec, [facility] [address] [id number] [address] [place] [id number] Dec, [facility] [address] [id number] [address] [place] [address] Nov, [facility] [address] [id number] [address] [place] [address] Nov, [facility] [address] [id number] [address] [place] [address] Nov, [facility] [address] [id number] [address] [place] [address] Nov, [facility] [address] [id number] [address] [place] [address] Nov, [facility] [address] [id number] [address] [place] [address] Nov, [facility] [address] [id number] [address] [place] [address], [place] [address] Nov, [facility] [address] [id number] [address] [place] [address], [place] [address] Nov, [facility] [address] [id number] [address] [place] [address], [place] [address] Oct, [facility] [address] [id number] [address] [place] [address], [place] [address] Oct, [facility] [address] [id number] [address] [place] [address], [place] [address] Sep, [facility] [address] [id number] [address] [place] [address], [place] [address] Sep, [facility] [address] [id number] [address] [place] [address], [place] [address] Sep, [facility] [address] [id number] [address] [place] [address], [place] [address] Sep, [facility] [address] [id number] [address] [place] [address], [place] [address] Sep, [facility] [address] [id number] [address] [place] [address], [place] [address] Sep, [facility] [address] [id number] [address] [place] [address], [place] [address] Sep, [facility] [address] [id number] [address] [place] [address], [place] [address] Aug, [facility] [address] [id number] [address] [place] [address], [place] [address] Aug, [facility] [address] [id number] [address] [place] [address], [place] [address] Aug, [facility] [address] [id number] [address] [place] [address], [place] [address] Aug, [facility] [address] [id number] [facility] [place] [address] 16 Aug, 2012 [facility] [address] [id number] [address] [place] [address], [place] [address] 15 Aug, 2012 [facility] [address] [id number] [address] [place] [address], [place] [address] 05 Aug, 2012 [facility] [address] [id number] [address] [place] [address], [place] [address] Aug, [facility] [address] [id number] [address] [place] [address], [place] [address] Jul, [facility] [address] [id number] [address] [place] [address], [place] [address] Jul, [facility] [address] [id number] [address] [place] [address], [place] [address] Jul, [facility] [address] [id number] [address] [place] [address], [place] [address] Jul, [facility] [address] [id number] [address] [place] [address], [place] [address] June, [facility] [address] [id number] [address] [place] [address], [place] [address] June, [facility] [address] [id number] [address] [place] [address], [place] [address] June, [facility] [address] [id number] [address] [place] [address], [place] [address] June, [facility] [address] [id number] [address] [place] [address], [place] [address] June, [facility] [address] [id number] [address] [place] [address], [place] [address] May, [facility] [address] [id number] [address] [place] [address], [place] [address] May, [facility] [address] [id number] [address] [place] [address], [place] [address] 16 May, 2012 [facility] [address] [id number] [address] [place] [address], [place] [address] 04 May, 2012 [facility] [address] [id number] [address] [place] [address], [place] [address] 26 Apr, 2012 [facility] [address] [id number] [address] [place] [address], [place] [address] 25 Apr, 2012 [facility] [address] [id number] [address] [place] [address], [place] [address] 08 Apr, 2012 [facility] [address] [id number] [address] [place] [address], [place] [address] 07 Apr, 2012 [facility] [address] [id number] [address] [place] [address], [place] [address] 21 Mar, 2012 [facility] [address] [id number] [address] [place] [address], [place] [address] 15 Mar, 2012 [facility] [address] [id number] [address] [place] [address], [place] [address] 13 Mar, 2012 [facility] [address] [id number] [address] [place] [address], [place] [address] 07 Mar, 2012 [facility] [address] [id number] [address] [place] [address], [place] [address] 07 Feb, 2012 [facility] [address] [id number] [address] [place] [address], [place] [address] Jan, [facility] [address] [id number] [address] [place] [address], [place] [address] Jan, [facility] [address] [id number] [address] [place] [address], [place] [address] Jan, [facility] [address] [id number] [address] [place] [address], [place] [address] Dec, [facility] [address] [id number] [address] [place] [address], [place] [address] Dec, [facility] [address] [id number] [address] [place] [address], [place] [address] 28 Dec, 2011 [facility] [address] [id number] [address] [place] [address], [place] [address] 28 Dec, 2011 [facility] [address] [id number] [address] [place] [address], [place] [address] 15 Dec, 2011 [facility] [address] [id number] [address] [place] [address], [place] [address] 15 Dec, 2011 [facility] [address] [id number] [address] [place] [address], [place] [address] 14 Dec, 2011 [facility] [address] [id number] [address] [place] [address], [place] [address] 07 Dec, 2011 [facility] [address] [id number] [address] [place] [address], [place] [address] Dec, [facility] [address] [id number] [address] [place] [address], [place] [address] 17 Nov, 2011 [facility] [address] [id number] [address] [place] [address], [place] [address] 17 Nov, 2011 [facility] [address] [id number] [address] [place] [address], [place] [address] Nov, [facility] [address] [id number] [address] [place] [address], [place] [address] Nov, [facility] [address] [id number] [address] [place] [address], [place] [address] 10 Nov, 2011 [facility] [address] [id number] [address] [place] [address], [place] [address] 10 Nov, 2011 [facility] [address] [id number] [address] [place] [address], [place] [address] 12 Oct, 2011 [facility] [address] [id number] [address] [place] [address], [place] [address] 16 Sep, 2011 [facility] [address] [id number] [address] [place] [address], [place] [address] Sep, [facility] [place] [address] [id number] [address] [place] [address], [place] [address] Aug, [facility] [address] [id number] [address] [place] [address], [place] [address] Aug, [facility] [address] [id number] [address] [place] [address], [place] [address] Aug, [facility] [address] [id number] [address] [place] [address], [place] [address] Aug, [facility] [address] [id number] [address] [place] [address], [place] [address] Aug, [facility] [address] [id number] [address] [place] [address], [place] [address] Jul, [facility] [address] [id number] [address] [place] [address], [place] [address] Jul, [facility] [address] [id number] [address] [place] [address], [place] [address] June, [facility] [address] [id number] [address] [place] [address], [place] [address] June, [facility] [address] [id number] [address] [place] [address], [place] [address] June, [facility] [address] [id number] [address] [place] [address], [place] [address] June, [facility] [address] [id number] [address] [place] [address], [place] [address] May, [facility] [address] [id number] [address] [place] [address], [place] [address] Apr, [facility] [address] [id number] [address] [place] [address], [place] [address] Apr, [facility] [address] [id number] [address] [place] [address], [place] [address] Apr, [facility] [address] [id number] [address] [place] [address], [place] [address] 08 Apr, 2011 [facility] [place] [address] [id number] [address] [place] [address], [place] [address] Apr, [facility] [address] [id number] [address] [place] [address], [place] [address] Mar, [facility] [place] [address] [id number] [address] [place] [address], [place] [address] Mar, [facility] [address] [id number] [address] [place] [address], [place] [address] Mar, [facility] [address] [id number] [address] [place] [address], [place] [address] Feb, [facility] [place] [address] [id number] [address] [place] [address], [place] [address] Feb, [facility] [place] [address] [id number] [address] [place] [address], [place] [address] Feb, [facility] [place] [address] [id number] [address] [place] [address], [place] [address] Feb, [facility] [place] [address] [id number] [address] [place] [address], [place] [address] Feb, [facility] [address] [id number] [address] [place] [address], [place] [address] Feb, [facility] [place] [address] [id number] [address] [place] [address], [place] [address] Jan, [facility] [address] [id number] [address] [place] [address], [place] [address] Jan, [facility] [address] [id number] [address] [place] [address], [place] [address] Jan, [facility] [address] [id number] [address] [place] [address], [place] [address] Jan, [facility] [address] [id number] [address] [place] [address], [place] [address] Jan, [facility] [address] [id number] [address] [place] [address], [place] [address] 16 Jul, 2010 [facility] [address] [id number] [address] [place] [address], [place] [address] June, [facility] [address] [id number] [address] [place] [address], [place] [address] 13 Feb, 2010 [facility] [address] [id number] [address] [place] [address], [place] [address] 20 Jan, 2010 [facility] [address] [id number] [address] [place] [address], [place] [address] Sep, [facility] [address] [id number] [address] [place] [address], [place] [id number] 20 Aug, 2009 [facility] [address] [id number] [address] [place] [address], [place] [address] 14 May, 2009 [facility] [address] [id number] [address] [place] [address], [place] [address] Apr, [facility] [address] [id number] [address] [place] [address], [place] [address] Jan, [facility] [place] [address] [id number] [address] [place] [address], [place] [address] Jan, [facility] [address] [id number] [address] [place] [address], [place] [address] Jan, [facility] [address] [id number] [address] [place] [address], [place] [address] Dec, [facility] [address] [id number] [address] [place] [address], [place] [address] Dec, [facility] [address] [id number] [address] [place] [address], [place] [address] Nov, [facility] [address] [id number] [address] [place] [address], [place] [address] Nov, [facility] [address] [id number] [address] [place] [address], [place] [address] Nov, IMMUNIZATIONS No Known Immunizations SOCIAL HISTORY [...] Surgical History rectocele/cystocele repair, pessary fitt ed ([facility]) 05/2013 Surgical History Suspicious lesion removal 2015 Surgical History heart cath 03/03/2019 Hospitalization History [facility] acute gastoentereritis, dehydrati on 06/06 Hospitalization History Heart Cath 2013 Hospitalization History ER visit- 09/2018
--- OUTSIDE RECORDS SUMMARY | 2019-07-19 09:29 | XMS REPORT ---
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 Name Role Phone Migration, Doctor Unavailable Unavailable PROBLEMS Type Condition ICD9-CM Code [id number] Code Onset Dates Condition S tatus SNOMED Code Problem Episodic cluster headache, not intractable G44.019 Active 445891353 Problem Angina pectoris, unspecified I20.9 A ctive 585978641 Problem Acute bilateral low back pain with left-sided sciatica M54.42 Active 73470643 Problem Other chronic pain G89.29 Active 8 8225242 Problem Lumbago with sciatica, right side M54.41 Active 939000230 Problem Lumbago with sciatica, left side M54.42 Active 317197729 Problem COPD exacerbation J44.1 Active 29 [id number] Problem Anxiety F41.9 Active 01751022 Problem Major depressive disorder, recurrent, mild F33.0 Active 317710956 Problem History of diabetes mellitus, type II Z86.39 Active 715402925 Problem Other chronic pain G89.29 Active 8 8110983 Problem Hyperlipidemia, unspecified hyperlipidemia type E7 8.5 Active 17982885 Problem 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.0 Active 285632532 Problem Chronic obstructive pulmonary disease, unspecified COPD ty pe J44.9 Active 54624343 Problem Essential hypertension I10 Active 69263230 Problem Seasonal allergic rhinitis due to pollen J30.1 Active 73036979 Problem Atherosclerotic heart diseas e of [place] coronary artery without angina pectoris I25.10 Active 7482453811555 Problem Hypoglycemia E16.2 Active 4432490 03 Problem 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 Active 469683780397 7 Problem Primary osteoarthritis of right knee M17.11 Active [id number] Problem Dysphagia, unspecified type R13.10 Ac tive 95145498 ALLERGIES No Information ENCOUNTERS Encounter Location Date Diagnosis [facility] [address] [facility] [id number] [address] [place] [address] Jul, [place] [address] [address] 28 May, 2019 Nail hypertrophy L60.2 ; 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9 ; Essential hypertension I10 ; Family history of diabetes mellitus Z83.3 ; Hyperlipidemia, unspecified hyperlipidemia type E78.5 ; Anxiety F41.9 and 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 [address] 06 Mar, 2019 Primary osteoarthritis of ri t knee M17.[address] [address] Mar, [address] [address] Feb, Onychomycosis B35.1 ; Nail h ypertrophy L60.2 and Self-care deficit for grooming and hygiene Z74.[address] [address] Jan, Posterior right knee pain M2 5.561 ; Pain in left leg M79.605 ; Pain in right leg M79.604 ; Coronary artery disease of [place] artery of [place] heart with stable angina pectoris I25.118 and Encounter for immunization Z23 [place] [address] [address] Dec, Nail hypertrophy L60.2 ; Lakshmi chomycosis B35.1 and Self-care deficit for grooming and hygiene Z74.1 [place] [address] [address] Oct, [place] [address] [address] Sep, Other chest pain R07.89 [place] [address] [address] Sep, [facility] [place] [address] [address] Sep, Cellulitis of groin L03.314 [place] [address] [address] Sep, Nail hypertrophy L60.2 and S elf-care deficit for grooming and hygiene Z74.1 [place] [address] [address] Aug, [place] [address] [address] Aug, Hypoglycemia E16.2 ; Nonintr actable episodic headache, unspecified headache type R51 and Candidiasis of breast B37.89 [place] [address] [address] Aug, Nail hypertrophy L60.2 and S elf-care deficit for grooming and hygiene Z74.1 [place] [address] [address] June, [facility] [address] [place] [id number] [place] [address] May, Bee sting, accidental or uni ntentional, initial encounter T63.441A [place] [address] [facility] [id number] [address] [place] [id number] Apr, Primary osteoarthritis invol ving multiple joints M15.0 ; Angina pectoris, unspecified I20.9 ; History of diabetes mellitus, type II Z86.39 and Chronic obstructive pulmonary disease, unspecified COPD type J44.9 [facility] [address] [facility] [id number] [address] [place] [id number] Apr, Nail hypertrophy L60.2 and S elf-[facility] deficit for grooming and hygiene Z74.1 [facility] [address] [facility] [id number] [address] [place] [id number] Mar, [facility] [address] [facility] [id number] [address] [place] [id number] Mar, Low back pain M54.5 [facility] [address] [facility] [id number] [address] [place] [id number] Mar, [facility] [address] [facility] [id number] [address] [place] [id number] Feb, [facility] [address] [facility] [id number] [address] [place] [id number] Feb, [facility] [address] [facility] [id number] [address] [place] [id number] Feb, Encounter for Medicare annua l wellness exam Z00.00 ; Major depressive disorder, recurrent, mild F33.0 ; Chronic obstructive pulmonary disease, unspecified COPD type J44.9 ; Atherosclerotic heart disease of [place] coronary artery without angina pectoris I25.10 ; Primary osteoarthritis involving multiple joints M15.0 ; Angina pectoris, unspecified I20.9 and 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 [facility] [address] [facility] [id number] [address] [place] [id number] Jan, [facility] [address] [facility] [id number] [address] [place] [id number] Jan, [facility] [address] [place] [id number] [address] [place] [id number] Dec, Chronic obstructive pulmonar y disease, unspecified COPD type J44.9 ; Low back pain M54.5 ; Other chronic pain G89.29 and Moderate episode of recurrent major depressive disorder F33.1 [facility] [address] [facility] [id number] [address] [place] [id number] Nov, [facility] [address] [facility] [id number] [address] [place] [address] Nov, Encounter for immunization Z 23 [place] [facility] [id number] [address] [place] [id number] Nov, Allergic rhinitis due to ned iona, unspecified seasonality J30.1 ; Primary osteoarthritis involving multiple joints M15.0 and Encounter for immunization Z23 [place] [address] [facility] [id number] [address] [place] [id number] Oct, Nail hypertrophy L60.2 and S elf-care deficit for hygiene R46.0 [facility] [address] [place] [id number] [address] [place] [id number] Oct, Chest congestion R09.89 ; So re throat J02.9 and Cough R05 [place] [address] [place] [id number] [address] [place] [id number] Sep, [facility] [address] [facility] [id number] [address] [place] [id number] Aug, Low back pain M54.5 ; Other chronic pain G89.29 ; Pain in right knee M25.561 ; Pain in left knee M25.562 and Rash R21 [facility] [address] [facility] [id number] [address] [place] [id number] Aug, Nail hypertrophy L60.2 and S elf-care deficit for hygiene R46.0 [facility] [address] [facility] [id number] [address] [place] [id number] June, Hypertrophy of nail L60.2 an d Self-care deficit for hygiene R46.0 [place] [address] [facility] [id number] [address] [place] [id number] June, [facility] [address] [facility] [id number] [address] [place] [id number] June, COPD exacerbation J44.1 [facility] [address] [facility] [id number] [address] [place] [id number] May, [facility] [address] [address] Apr, Seasonal allergic rhinitis d ue to pollen J30.1 ; Encounter for immunization Z23 ; COPD exacerbation J44.1 ; Encounter for screening mammogram for breast cancer Z12.31 and Colon cancer screening Z12.11 [place] [address] [place] [id number] [address] [place] [id number] Apr, [place] [address] [address] Feb, Lumbago with sciatica, right side M54.41 ; Lumbago with sciatica, left side M54.42 ; Other chronic pain G89.29 ; Left hip pain M25.552 and Anxiety F41.9 [facility] [address] [place] [id number] [place] [address] Jan, History of asthma Z87.09 ; C OPD exacerbation J44.1 and Acute non-recurrent maxillary sinusitis J01.00 [facility] [address] [place] [id number] [address] [place] [id number] Jan, Other chronic pain G89.29 an d Acute bilateral low back pain with left-sided sciatica M54.42 [place] [address] [place] [id number] Jan, Other chronic pain G89.29 an d Acute bilateral low back pain with left-sided sciatica M54.42 [facility] [address] [facility] [id number] [address] [place] [id number] Dec, Trochanteric bursitis of lef t hip M70.62 ; Left hip pain M25.552 and Other chronic pain G89.29 [facility] [address] [place] [id number] [place] [id number] Nov, Local reaction to insect sti ng, accidental or unintentional, initial encounter T63.481A and Acute dermatitis L30.9 [place] [address] [place] [id number] [place] [address] Nov, Breast cancer screening Z12. 31 [place] [address] [place] [id number] [place] [address] Nov, Acute bilateral low back rangel n with left-sided sciatica M54.42 and Low back pain, unspecified back pain laterality, with sciatica presence unspecified M54.5 [facility] [address] [place] [id number] [place] [phone] Oct, Acute bilateral low back rangel n with left-sided sciatica M54.42 [place] [address] [address] Sep, Low back pain, unspecified b ack pain laterality, with sciatica presence unspecified M54.5 [place] [address] [address] Sep, [place] [address] [address] Aug, Nail hypertrophy L60.2 ; Lakshmi chomycosis B35.1 and Self-care deficit for hygiene R46.0 [place] [address] [place] [phone] Aug, [place] [address] [place] [id number] [place] [address] Aug, [facility] [address] [place] [id number] [address] [place] [phone] Jul, Rash R21 [place] [address] [id number] Jul, [facility] [address] [id number] [address] [place] [id number] Jul, Low back pain, unspecified b ack pain laterality, with sciatica presence unspecified M54.5 [facility] [address] [id number] [address] [place] [id number] June, Nail hypertrophy L60.2 ; Marilee f-care deficit for hygiene R46.0 and Other chronic pain G89.29 [facility] [address] [id number] [address] [place] [id number] June, Low back pain, unspecified b ack pain laterality, with sciatica presence unspecified M54.5 [facility] [address] [id number] [address] [place] [id number] May, [facility] [address] [id number] [address] [place] [id number] May, [facility] [address] [id number] [address] [place] [id number] May, [facility] [address] [id number] [address] [place] [phone] May, Low back pain, unspecified b ack pain laterality, with sciatica presence unspecified M54.5 [facility] [address] [id number] [address] [place] [id number] Apr, Breast pain, left N64.4 ; Le ft arm pain M79.602 and Family history of diabetes mellitus Z83.3 [facility] [address] [id number] [address] [place] [id number] Apr, Low back pain, unspecified b ack pain laterality, with sciatica presence unspecified M54.5 [facility] [address] [id number] [address] [place] [id number] Apr, [facility] [address] [id number] [address] [place] [id number] 28 Mar, 2016 Onychomycosis B35.1 and Self -care deficit for hygiene R46.0 [facility] [address] [id number] [address] [place] [id number] 17 Mar, 2016 Low back pain, unspecified b ack pain laterality, with sciatica presence unspecified M54.5 [facility] [address] [id number] [address] [place] [id number] 14 Mar, 2016 Pain in left shoulder M25.51 2 and Other chronic pain G89.29 [facility] [address] [id number] [address] [place] [id number] 13 Mar, 2016 Arthralgia, unspecified join t M25.50 [facility] [address] [id number] [address] [place] [id number] 06 Mar, 2016 [facility] [address] [id number] [address] [place] [id number] Feb, Low back pain, unspecified b ack pain laterality, with sciatica presence unspecified M54.5 [facility] [address] [id number] [address] [place] [id number] Feb, [facility] [address] [id number] [address] [place] [id number] Feb, Dental examination Z01.20 [facility] [address] [id number] [address] [place] [id number] Feb, Dental examination Z01.20 [facility] [address] [id number] [address] [place] [id number] Feb, Cramp of both lower extremit ies R25.2 [facility] [address] [id number] [address] [place] [id number] Feb, [facility] [address] [id number] [address] [place] [id number] Jan, Hypoxemia R09.02 ; Episodic cluster headache, not intractable G44.019 and Cramp of both lower extremities R25.2 [facility] [address] [id number] [address] [place] [id number] Jan, [facility] [address] [id number] [address] [place] [id number] Jan, Low back pain, unspecified b ack pain laterality, with sciatica presence unspecified M54.5 [facility] [address] [id number] [address] [place] [id number] Jan, Hypertrophy of nail L60.2 ; Onychomycosis B35.1 and Self-care deficit for hygiene R46.0 [place] [address] [facility] [id number] [address] [place] [id number] Jan, Low back pain, unspecified b ack pain laterality, with sciatica presence unspecified M54.5 [place] [address] [facility] [id number] [address] [place] [id number] Dec, Low back pain, unspecified b ack pain laterality, with sciatica presence unspecified M54.5 [facility] [address] [facility] [id number] [address] [place] [id number] Dec, Bug bite with infection, ini tial encounter W57.XXXA [place] [address] [id number] [address] [place] [id number] Nov, Low back pain, unspecified b ack pain laterality, with sciatica presence unspecified M54.5 [place] [address] [facility] [id number] [address] [place] [address] Nov, [place] [address] [id number] [address] [place] [id number] Nov, Chronic obstructive pulmonar y disease, unspecified COPD type J44.9 [facility] [address] [id number] [address] [place] [id number] Nov, [place] [address] [facility] [id number] [address] [place] [id number] Oct, [facility] [address] [id number] [address] [place] [id number] Oct, Onychomycosis B35.1 and Ingr own nail L60.0 [facility] [address] [id number] [address] [place] [id number] Oct, Low back pain, unspecified b ack pain laterality, with sciatica presence unspecified M54.5 [place] [address] [id number] [address] [place] [id number] Sep, [place] [address] [id number] [address] [place] [id number] Sep, Low back pain, unspecified b ack pain laterality, with sciatica presence unspecified M54.5 [place] [address] [facility] [id number] [address] [place] [id number] Aug, [place] [address] [facility] [id number] [address] [place] [id number] Aug, Cramp of both lower extremit ies R25.2 ; Breast cancer screening Z12.39 ; Hyperlipidemia, unspecified hyperlipidemia type E78.5 and Atypical mole L81.9 [place] [address] [id number] [address] [place] [id number] Aug, Chronic obstructive pulmonar y disease, unspecified COPD type J44.9 [place] [address] [id number] [address] [place] [id number] Aug, Low back pain, unspecified b ack pain laterality, with sciatica presence unspecified M54.5 [place] [address] [id number] [address] [place] [id number] Aug, Atherosclerotic heart diseas e of [place] coronary artery without angina pectoris I25.10 [place] [address] [id number] [address] [place] [phone] Jul, [place] [address] [facility] [id number] [address] [place] [id number] 15 Jul, 2015 [place] [address] [facility] [id number] [address] [place] [id number] 13 Jul, 2015 Allergic rhinitis, unspecifi ed allergic rhinitis type J30.9 [place] [address] [facility] [id number] [address] [place] [id number] 13 Jul, 2015 Low back pain, unspecified b ack pain laterality, with sciatica presence unspecified M54.5 [place] [address] [place] [id number] [address] [place] [id number] 07 Jul, 2015 Post-concussion headache G44 .309 and Arthralgia, unspecified joint M25.50 [place] [address] [place] [id number] [address] [place] [id number] 24 Jun, 2015 Chronic obstructive pulmonar y disease, unspecified COPD type J44.9 [place] [address] [address] June, [place] [address] [place] [id number] 18 May, 2015 [place] [address] [id number] 05 May, 2015 [place] [address] [place] [id number] [address] [place] [id number] 30 Apr, 2015 Hip pain 719.45 and Atherosc lerotic heart disease of [place] coronary artery without angina pectoris I25.10 [place] [address] [place] [id number] [address] [place] [id number] 22 Apr, 2015 History of self-care deficit Z86.59 ; Hypertrophy of nail L60.2 and Onychomycosis B35.1 [place] [address] [place] [id number] [address] [place] [id number] 16 Apr, 2015 [place] [id number] [place] [id number] 15 Apr, 2015 Gastroenteritis K52.9 [facility] [address] [id number] [address] [place] [id number] Mar, [facility] [address] [id number] [address] [place] [phone] Mar, [facility] [address] [id number] [address] [place] [id number] Mar, [facility] [address] [id number] [address] [place] [id number] Mar, Acute pain due to injury G89 .11 and Other chronic pain G89.29 [facility] [address] [id number] [address] [place] [id number] Mar, [facility] [address] [id number] [address] [place] [id number] Mar, [facility] [address] [id number] [address] [place] [id number] Mar, [facility] [address] [id number] [address] [place] [id number] Mar, [facility] [address] [id number] [address] [place] [id number] Feb, Low back pain, unspecified b ack pain laterality, with sciatica presence unspecified M54.5 [facility] [address] [id number] [address] [place] [id number] Feb, [facility] [address] [id number] [address] [place] [id number] Jan, [facility] [address] [id number] [address] [place] [id number] Jan, Low back pain, unspecified b ack pain laterality, with sciatica presence unspecified M54.5 [facility] [address] [id number] [address] [place] [id number] Jan, Other chronic pain G89.29 an d Acute pain due to injury G89.11 [facility] [address] [id number] [address] [place] [id number] Dec, [facility] [address] [id number] [address] [place] [id number] Nov, Essential hypertension I10 a nd Viral infection, unspecified B34.9 [facility] [address] [facility] [id number] [address] [place] [id number] Nov, [facility] [address] [id number] [address] [place] [phone] Nov, [facility] [address] [id number] [address] [place] [phone] Oct, [facility] [address] [facility] [id number] [address] [place] [phone] Oct, [facility] [address] [facility] [id number] [address] [place] [phone] Oct, [facility] [address] [facility] [id number] [address] [place] [phone] Oct, [facility] [address] [facility] [id number] [address] [place] [id number] Sep, [facility] [address] [facility] [id number] [address] [place] [id number] Sep, Hypertrophy of nail 703.8 an d Self-care deficit for hygiene V40.39 [facility] [address] [facility] [id number] [address] [place] [id number] Sep, [facility] [address] [facility] [id number] [address] [place] [id number] Sep, [facility] [address] [facility] [id number] [address] [place] [id number] Aug, [facility] [address] [facility] [id number] [address] [place] [id number] Jul, Onychomycosis 110.1 and Ingr own nail 703.0 [facility] [address] [id number] [address] [place] [id number] 09 Jul, 2014 Other screening mammogram V7 6.12 [facility] [address] [id number] [address] [place] [id number] Jul, [facility] [address] [id number] [address] [place] [id number] Jul, Hip pain 719.45 ; Visual dis turbance 368.9 and Conjunctivitis 372.30 [facility] [address] [id number] [address] [place] [id number] June, [facility] [address] [id number] [address] [place] [id number] June, [facility] [address] [id number] [address] [place] [id number] June, [facility] [address] [id number] [address] [place] [id number] June, [facility] [address] [id number] [address] [place] [id number] May, [facility] [address] [id number] [address] [place] [id number] May, [facility] [address] [id number] [address] [place] [id number] Apr, [facility] [address] [id number] [address] [place] [id number] Apr, [facility] [address] [id number] [address] [place] [id number] Apr, [facility] [address] [id number] [address] [place] [id number] Apr, [facility] [address] [id number] [address] [place] [id number] Mar, [facility] [address] [id number] [address] [place] [id number] Mar, [facility] [address] [id number] [address] [place] [address], [place] [address] Feb, [facility] [address] [id number] [address] [place] [address], [place] [address] Feb, [facility] [address] [id number] [address] [place] [address], [place] [address] Feb, [facility] [address] [id number] [address] [place] [address], [place] [address] Jan, [facility] [address] [id number] [address] [place] [address], [place] [address] Jan, [facility] [address] [id number] [address] [place] [address], [place] [address] Jan, [facility] [address] [id number] [address] [place] [address], [place] [address] Jan, [facility] [address] [id number] [address] [place] [address], [place] [address] Jan, [facility] [address] [id number] [address] [place] [address], [place] [address] Jan, [facility] [address] [id number] [address] [place] [address], [place] [address] Dec, [facility] [address] [id number] [address] [place] [address], [place] [address] Nov, [facility] [address] [id number] [address] [place] [address], [place] [address] Nov, [facility] [address] [id number] [address] [place] [address], [place] [address] Nov, [facility] [address] [id number] [address] [place] [address], [place] [address] Nov, [facility] [address] [id number] [address] [place] [address], [place] [address] Nov, [facility] [address] [id number] [address] [place] [address] [place] [address] Nov, [facility] [address] [id number] [address] [place] [address], [place] [address] Nov, [facility] [address] [id number] [address] [place] [address], [place] [address] Nov, [facility] [address] [id number] [address] [place] [address], [place] [address] Nov, [facility] [address] [id number] [address] [place] [address], [place] [address] Nov, [facility] [address] [id number] [address] [place] [address], [place] [address] 25 Oct, 2013 [facility] [address] [id number] [address] [place] [address], [place] [address] 25 Oct, 2013 [facility] [address] [id number] [address] [place] [address], [place] [address] 24 Oct, 2013 [facility] [address] [id number] [address] [place] [address], [place] [address] 24 Oct, 2013 [facility] [address] [id number] [address] [place] [address], [place] [address] 15 Oct, 2013 [facility] [address] [id number] [address] [place] [address], [place] [address] 15 Oct, 2013 [facility] [address] [id number] [address] [place] [address], [place] [address] 04 Oct, 2013 [facility] [address] [id number] [address] [place] [address], [place] [address] 04 Oct, 2013 [facility] [address] [id number] [address] [place] [address], [place] [address] Sep, [facility] [address] [id number] [address] [place] [address], [place] [address] Sep, [facility] [address] [id number] [address] [place] [address], [place] [address] Sep, [facility] [address] [id number] [facility] [place] [address] Sep, [facility] [address] [id number] [facility] [place] [address] Aug, [facility] [address] [id number] [facility] [place] [address] Aug, [facility] [address] [id number] [address] [place] [address], [place] [address] Aug, [facility] [address] [id number] [address] [place] [address], [place] [address] Aug, 2013 [facility] [address] [id number] [address] [place] [address], [place] [address] Aug, [facility] [address] [id number] [address] [place] [address], [place] [address] Aug, [facility] [address] [id number] [address] [place] [address], [place] [address] Aug, [facility] [address] [id number] [address] [place] [address], [place] [address] Aug, [facility] [address] [id number] [address] [place] [address], [place] [address] Jul, [facility] [address] [id number] [address] [place] [address], [place] [address] Jul, [facility] [address] [id number] [address] [place] [address], [place] [address] Jul, [facility] [address] [id number] [address] [place] [address], [place] [address] Jul, [facility] [address] [id number] [address] [place] [address], [place] [address] Jul, [facility] [address] [id number] [address] [place] [address], [place] [address] Jul, [facility] [address] [id number] [address] [place] [address], [place] [address] Jul, [facility] [address] [id number] [facility] [place] [address] Jul, [facility] [address] [id number] [address] [place] [address], [place] [address] Jul, [facility] [address] [id number] [address] [place] [address], [place] [address] Jul, [facility] [address] [id number] [address] [place] [address], [place] [address] Jul, [facility] [address] [id number] [address] [place] [address], [place] [address] Jul, [facility] [address] [id number] [address] [place] [address], [place] [address] Jul, [facility] [address] [id number] [address] [place] [address], [place] [address] Jul, [facility] [address] [id number] [address] [place] [address], [place] [address] Jul, [facility] [address] [id number] [address] [place] [address], [place] [address] Jul, [facility] [address] [id number] [address] [place] [address], [place] [address] Jul, [facility] [address] [id number] [address] [place] [address], [place] [address] June, [facility] [address] [id number] [address] [place] [address], [place] [address] June, [facility] [address] [id number] [address] [place] [address], [place] [address] May, [facility] [address] [id number] [address] [place] [address], [place] [address] May, [facility] [address] [id number] [address] [place] [address], [place] [address] May, [facility] [address] [id number] [facility] [place] [address] 10 May, 2013 [facility] [address] [id number] [address] [place] [address], [place] [address] 17 Apr, 2013 [facility] [address] [id number] [facility] [place] [address] 17 Apr, 2013 [facility] [address] [id number] [address] [place] [address], [place] [address] 13 Apr, 2013 [facility] [address] [id number] [address] [place] [address], [place] [address] 13 Apr, 2013 [facility] [address] [id number] [address] [place] [address], [place] [address] 11 Apr, 2013 [facility] [address] [id number] [address] [place] [address], [place] [address] 11 Apr, 2013 [facility] [address] [id number] [address] [place] [address], [place] [address] 10 Apr, 2013 [facility] [address] [id number] [address] [place] [address], [place] [address] 13 Mar, 2013 [facility] [address] [id number] [address] [place] [address], [place] [address] 13 Mar, 2013 [facility] [address] [id number] [address] [place] [address], [place] [address] 11 Mar, 2013 [facility] [address] [id number] [address] [place] [address], [place] [address] Mar, [facility] [address] [id number] [address] [place] [address], [place] [address] Feb, [facility] [address] [id number] [address] [place] [address], [place] [address] Feb, [facility] [address] [id number] [address] [place] [address], [place] [address] Feb, [facility] [address] [id number] [address] [place] [address], [place] [address] Feb, [facility] [address] [id number] [address] [place] [address], [place] [address] Jan, [facility] [address] [id number] [address] [place] [address], [place] [address] Jan, [facility] [address] [id number] [address] [place] [address], [place] [address] Jan, [facility] [address] [id number] [address] [place] [address], [place] [address] Jan, [facility] [address] [id number] [address] [place] [address], [place] [address] Dec, [facility] [address] [id number] [address] [place] [address], [place] [address] Dec, [facility] [address] [id number] [address] [place] [address], [place] [address] Dec, [facility] [address] [id number] [address] [place] [address], [place] [address] Dec, [facility] [address] [id number] [address] [place] [address], [place] [address] Dec, [facility] [address] [id number] [address] [place] [address] Nov, [facility] [address] [id number] [address] [place] [address], [place] [address] Nov, [facility] [address] [id number] [address] [place] [id number] Nov, [facility] [address] [id number] [address] [place] [address], [place] [address] Nov, [facility] [address] [id number] [address] [place] [address], [place] [address] Nov, [facility] [address] [id number] [address] [place] [address], [place] [address] Nov, [facility] [address] [id number] [address] [place] [address] [place] [address] Nov, [facility] [address] [id number] [address] [place] [address], [place] [address] Nov, [facility] [address] [id number] [address] [place] [address], [place] [address] Oct, [facility] [address] [id number] [address] [place] [address], [place] [address] Oct, [facility] [address] [id number] [address] [place] [address], [place] [address] Sep, [facility] [address] [id number] [address] [place] [address], [place] [address] Sep, [facility] [address] [id number] [address] [place] [address], [place] [address] Sep, [facility] [address] [id number] [address] [place] [address], [place] [address] Sep, [facility] [address] [id number] [address] [place] [address], [place] [address] Sep, [facility] [address] [id number] [address] [place] [address], [place] [address] Sep, [facility] [address] [id number] [address] [place] [address], [place] [address] Sep, [facility] [address] [id number] [address] [place] [address], [place] [address] Aug, [facility] [address] [id number] [address] [place] [address], [place] [address] Aug, [facility] [address] [id number] [address] [place] [address], [place] [address] Aug, [facility] [address] [id number] [address] [place] [address], [place] [address] Aug, [facility] [address] [id number] [address] [place] [address], [place] [address] Aug, [facility] [address] [id number] [address] [place] [address], [place] [address] 15 Aug, 2012 [facility] [address] [id number] [address] [place] [address], [place] [address] 05 Aug, 2012 [facility] [address] [id number] [address] [place] [address], [place] [address] Aug, [facility] [address] [id number] [address] [place] [address], [place] [address] 15 Jul, 2012 [facility] [address] [id number] [address] [place] [address], [place] [address] Jul, [facility] [address] [id number] [address] [place] [address], [place] [address] Jul, [facility] [address] [id number] [address] [place] [address], [place] [address] Jul, [facility] [address] [id number] [address] [place] [address], [place] [address] June, [facility] [address] [id number] [address] [place] [address], [place] [address] June, [facility] [address] [id number] [address] [place] [address], [place] [address] June, [facility] [address] [id number] [address] [place] [address], [place] [address] June, [facility] [address] [id number] [address] [place] [address], [place] [address] June, [facility] [address] [id number] [address] [place] [address], [place] [address] May, [facility] [address] [id number] [address] [place] [address], [place] [address] May, [facility] [address] [id number] [address] [place] [address], [place] [address] 16 May, 2012 [facility] [address] [id number] [address] [place] [address], [place] [address] May, [facility] [address] [id number] [address] [place] [address], [place] [address] Apr, [facility] [address] [id number] [address] [place] [address], [place] [address] Apr, [facility] [address] [id number] [address] [place] [address], [place] [address] 08 Apr, 2012 [facility] [address] [id number] [address] [place] [address], [place] [address] 07 Apr, 2012 [facility] [address] [id number] [address] [place] [address], [place] [address] 21 Mar, 2012 [facility] [address] [id number] [address] [place] [address], [place] [address] 15 Mar, 2012 [facility] [address] [id number] [address] [place] [address], [place] [address] 13 Mar, 2012 [facility] [address] [id number] [address] [place] [address], [place] [address] 07 Mar, 2012 [facility] [address] [id number] [address] [place] [address], [place] [address] Feb, [facility] [address] [id number] [address] [place] [address], [place] [address] Jan, [facility] [address] [id number] [address] [place] [address], [place] [address] Jan, [facility] [address] [id number] [address] [place] [address], [place] [address] Jan, [facility] [address] [id number] [address] [place] [address], [place] [address] Dec, [facility] [address] [id number] [address] [place] [address], [place] [address] Dec, [facility] [address] [id number] [address] [place] [address], [place] [address] Dec, [facility] [address] [id number] [address] [place] [address], [place] [address] 28 Dec, 2011 [facility] [address] [id number] [address] [place] [address], [place] [address] 15 Dec, 2011 [facility] [address] [id number] [address] [place] [address], [place] [address] 15 Dec, 2011 [facility] [address] [id number] [address] [place] [address], [place] [address] 14 Dec, 2011 [facility] [address] [id number] [address] [place] [address], [place] [address] 07 Dec, 2011 [facility] [address] [id number] [address] [place] [address], [place] [address] 07 Dec, 2011 [facility] [address] [id number] [address] [place] [address], [place] [address] 17 Nov, 2011 [facility] [address] [id number] [address] [place] [address], [place] [address] 17 Nov, 2011 [facility] [address] [id number] [address] [place] [address], [place] [address] Nov, [facility] [address] [id number] [address] [place] [address], [place] [address] 12 Nov, 2011 [facility] [address] [id number] [address] [place] [address], [place] [address] 10 Nov, 2011 [facility] [address] [id number] [address] [place] [address], [place] [address] 10 Nov, 2011 [facility] [address] [id number] [address] [place] [address], [place] [address] 12 Oct, 2011 [facility] [address] [id number] [address] [place] [address], [place] [address] 16 Sep, 2011 [facility] [address] [id number] [address] [place] [address], [place] [address] Sep, [facility] [address] [id number] [address] [place] [address], [place] [address] Aug, [facility] [address] [id number] [address] [place] [address], [place] [address] Aug, [facility] [address] [id number] [address] [place] [address], [place] [address] Aug, [facility] [address] [id number] [address] [place] [address], [place] [address] Aug, [facility] [address] [id number] [address] [place] [address], [place] [address] Aug, [facility] [address] [id number] [address] [place] [address], [place] [address] Jul, [facility] [address] [id number] [address] [place] [address], [place] [address] Jul, [facility] [address] [id number] [address] [place] [address], [place] [address] June, [facility] [address] [id number] [address] [place] [address], [place] [address] June, [facility] [address] [id number] [address] [place] [address], [place] [address] June, [facility] [address] [id number] [address] [place] [address], [place] [address] June, [facility] [address] [id number] [address] [place] [address], [place] [address] May, [facility] [address] [id number] [address] [place] [address], [place] [address] Apr, [facility] [address] [id number] [address] [place] [address], [place] [address] Apr, [facility] [address] [id number] [address] [place] [address], [place] [address] 15 Apr, 2011 [facility] [address] [id number] [address] [place] [address], [place] [address] Apr, [facility] [address] [id number] [address] [place] [address], [place] [address] Apr, [facility] [address] [id number] [address] [place] [address], [place] [address] 29 Mar, 2011 [facility] [address] [id number] [address] [place] [address], [place] [address] Mar, [facility] [address] [id number] [address] [place] [address], [place] [id number] Mar, [facility] [address] [id number] [address] [place] [address], [place] [address] Feb, [facility] [address] [id number] [address] [place] [address], [place] [phone] Feb, [facility] [address] [id number] [address] [place] [address], [place] [id number] Feb, [facility] [address] [id number] [address] [place] [address], [place] [phone] Feb, [facility] [address] [id number] [address] [place] [address], [place] [id number] Feb, [facility] [address] [id number] [address] [place] [address], [place] [address] Feb, [facility] [address] [id number] [address] [place] [address], [place] [phone] Jan, [facility] [address] [id number] [address] [place] [address], [place] [address] Jan, [facility] [address] [id number] [address] [place] [address], [place] [phone] Jan, [facility] [address] [id number] [address] [place] [address], [place] [address] Jan, [facility] [address] [id number] [address] [place] [address], [place] [id number] 02 Jan, 2011 [facility] [address] [id number] [address] [place] [address], [place] [address] 16 Jul, 2010 [facility] [address] [id number] [address] [place] [phone] June, [facility] [address] [id number] [address] [place] [phone] Feb, [facility] [address] [id number] [address] [place] [phone] Jan, [facility] [address] [id number] [address] [place] [phone] Sep, [facility] [address] [id number] [address] [place] [phone] Aug, [facility] [address] [id number] [address] [place] [id number] 14 May, 2009 [facility] [address] [id number] [address] [place] [phone] Apr, [facility] [address] [id number] [address] [place] [phone] Jan, [facility] [address] [id number] [address] [place] [phone] Jan, [facility] [address] [id number] [address] [place] [phone] Jan, [facility] [address] [id number] [address] [place] [phone] Dec, [facility] [address] [id number] [address] [place] [phone] Dec, [facility] [address] [id number] [address] [place] [phone] Nov, [facility] [address] [id number] [address] [place] [phone] Nov, [facility] [address] [id number] [address] [place] [phone] Nov, IMMUNIZATIONS No Known Immunizations SOCIAL HISTORY Never Assessed REASON FOR VISIT PLAN OF CARE VITAL SIGNS Height 62 in 2011-08-26 Weight 171 lbs 2011-08-26 Temperature 98.1 degrees Fahrenheit 2011-08-26 Heart Rate 76 bpm 2011-08-26 Respiratory Rate 18 2011-08-26 Blood pressure systolic 144 mmHg 2011-08-26 Blood pressure diastolic 92 mmHg 2011-08-26 MEDICATIONS Unknown Medications RESULTS No Results PROCEDURES Procedure Date Ordered Result Body Site GLYCATED HEMOGLOBIN TEST August 26, 2011 VENIPUNCT, ROUTINE* August 26, 2011 INSTRUCTIONS MEDICATIONS ADMINISTERED No Known Medications MEDICAL [...] Surgical History rectocele/cystocele repair, pessary fitt ed ([facility]) 05/2013 Surgical History Suspicious lesion removal 2015 Surgical History heart cath 03/03/2019 Hospitalization History [facility] acute gastoentereritis, dehydrati on 06/06 Hospitalization History Heart Cath 2013 Hospitalization History ER visit- 09/2018
[2019-07-19] MEDS ORDERED: DOXY100T2 PO ×2 (09:30→09:31)
--- NOTE | 2019-07-19 09:31 | ED Integumentary General ---
General Stated Complaint: POSSIBLE TICK BITE Source: patient History of Present Illness Date Seen by Provider: July 19, 2019 Time Seen by Provider: 09:25 Initial Comments PT ARRIVES VIA POV FROM HOME C/O TICK BITE TO LEFT FLANK STATES SHE NOTICED A "SCAB" ON HER LEFT FLANK AREA LAST NIGHT TODAY, JUST PRIOR TO ARRIVAL, SHE PICKED OFF THE "SCAB" AND STATES IT WAS A TICK TOLD HER BOSS AT [facility]" AND HE TOLD HER SHE "NEEDED TO COME HERE AND GET IT CHECKED OUT" PCP: PATRICIA, NAZANIN PATIÑO Allergies and Home Medications Allergies Coded Allergies: naproxen (Verified Allergy, Intermediate, RASH/HIVES, 10/04/15) Phenytoin Sodium Extended (Verified Allergy, Unknown, 10/04/15) meperidine HCl (Verified Allergy, Unknown, 10/04/15) phenytoin sodium (Verified Allergy, Unknown, 10/04/15) Home Medications Acetaminophen 325 Mg Tablet, 650 MG PO Q8H PRN for PAIN-MILD (1-4), (Reported) Acetaminophen/Diphenhydramine 1 Each Tablet, 1 EACH PO HS PRN for SLEEP, (Reported) Albuterol Sulfate 1 Puff Puff, 2 PUFF IH Q4H PRN for SHORTNESS OF BREATH, (Reported) Amlodipine Besylate 10 Mg Tablet, 10 MG PO DAILY, (Reported) Aspirin 81 Mg Tab.chew, 81 MG PO HS, (Reported) Atorvastatin Calcium 20 Mg Tablet, 20 MG PO DAILY, (Reported) Budesonide/Formoterol Fumarate 10.2 Gm Hfa.aer.ad, 2 PUFF IH BID PRN for SHORTNESS OF BREATH, (Reported) Cholecalciferol (Vitamin D3) 1,000 Unit Capsule, 1,000 UNIT PO DAILY, (Reported) Doxycycline Hyclate 100 Mg Tablet, 100 MG PO BID Prescribed by: PONCHO ROCHA on 07/19/19 0931 Escitalopram Oxalate 20 Mg Tablet, 20 MG PO DAILY, (Reported) LAST FILLED 11-30-2018 #30 / 30 DAY SUPPLY Ibuprofen 600 Mg Tablet, 600 MG PO Q8H PRN for PAIN-MILD (1-4), (Reported) Isosorbide Mononitrate 30 Mg Tab.er.24h, 30 MG PO DAILY, (Reported) LAST FILLED 06-17-2018 #90 / 90 DAY SUPPLY Lisinopril 40 Mg Tablet, 40 MG PO DAILY, (Reported) Montelukast Sodium 10 Mg Tablet, 10 MG PO DAILY, (Reported) Nitroglycerin 12 Gm [place], 1 SPRAY TL PRN PRN for CHEST PAIN, (Reported) Pantoprazole Sodium 40 Mg Tablet.dr, 40 MG PO DAILY, (Reported) LAST FILLED 06-17-2018 #90/90DAY SUPPLY Patient Home Medication List Home Medication List Reviewed: Yes Review of Systems Review of Systems Constitutional: no symptoms reported Skin: see HPI Past Lpelwls-Jeqsgb-Simqjq Hx Past Med/Social Hx: Reviewed and Corrections made Patient Social History Recent Hopitalizations: No Immunizations Up To Date Tetanus Booster (TDap): More than 5yrs Date of Pneumonia Vaccine: Apr 30, 2012 Date of Influenza Vaccine: Nov 04, 2018 Seasonal Allergies Seasonal Allergies: Yes Past Medical History Surgeries: Yes Abdominal, Appendectomy, Bowel Surgery, Cardiac, Coronary Stent, Gallbladder, Orthopedic Respiratory: Yes (COPD, ASTHMA; O2 AT HS STATES SHE DOESN'T USE IT) Asthma, COPD Currently Using CPAP: No Currently Using BIPAP: No Cardiac: Yes (CARDIAC CATH--STENTS X 2) Coronary Artery Disease, High Cholesterol, Hypertension Neurological: No Reproductive Disorders: No 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 Sexually Transmitted Disease: No HIV/AIDS: No Genitourinary: No Gastrointestinal: Yes (DIVERTICULITUS,ULCERS) Gastroesophageal Reflux, Diverticulosis, Esophagitis, Ulcer Musculoskeletal: Yes Degenerate Disk Disease, Arthritis, Chronic Back Pain Endocrine: Yes (DIET CONTROLLED) Diabetes, Non-Insulin dep HEENT: No (S/P TRACH DUE TO RESPIRATORY ARREST FROM [facility]) Loss of Vision: Denies Hearing Impairment: Denies Cancer: No Did You Recieve Any Treatments: No Psychosocial: No Integumentary: No Blood Disorders: No Adverse Reaction/Blood Tranf: No Family Medical History No Pertinent Family Hx Physical Exam Vital Signs Capillary Refill : General Appearance: WD/WN, no apparent distress Neurologic/Psychiatric: no motor/sensory deficits, alert, normal mood/affect, oriented x 3 Skin: normal color, warm/dry, other (SITE OF RECENT TICK BITE, ON LEFT FLANK. NO EVIDENCE OF RESIDUAL MATERIAL. NO BLEEDING OR SIGNS OF INFECTION. NO RASH. ) Departure Impression Primary Impression: Tick bite of left flank Disposition: 01 HOME, SELF-CARE Condition: Stable Departure-Patient Inst. Referrals: [facility] (PCP) Primary Care Physician FUENTES PATIÑO (Family) Primary Care Physician Patient Instructions: Insect Bites and Stings (DC) Add. Discharge Instructions: FOLLOW UP WITH YOUR DR NEEDED Scripts Doxycycline Hyclate (Doxycycline Hyclate) 100 Mg Tablet 100 MG PO BID, #20 TAB 0 Refills Prov: PONCHO ROCHA DO 07/19/19 PONCHO ROCHA DO July 19, 2019 09:31
--- OUTSIDE RECORDS SUMMARY | 2019-07-19 09:31 | XMS REPORT | Continuity of Care Document ---
Author Organization Unknown Address Unknown Phone Unavailable Allergies Active Description Code Type Severity Reaction Onset Reported/Identified Relationship to Patient Clinical Status Yes ALEVE MODERATE MODERATE Yes ALEVE MODERATE OTHER Yes DEMEROL MODERATE MODERATE Yes DEMEROL MODERATE OTHER Yes DILANTIN MODERATE MODERATE Yes DILANTIN MODERATE OTHER Yes Aleve Drug Allergy N/A N/A 12/12/2008 Yes Demerol Drug Allergy N/A N/A 12/12/2008 Yes Dilantin Drug Allergy N/A N/A 12/12/2008 Yes Aleve Drug Allergy 12/12/2008 Yes Demerol Drug Allergy 12/12/2008 Yes Dilantin Drug Allergy 12/12/2008 Yes naproxen [id number] Drug Allergy Moderate RASH/HIVES 10/04/[address] [id number] [address] ug Allergy Unknown N/A 10/04/2015 Yes phenytoin sodium [id number] Drug Allergy Unknown N/A 10/04/2015 Yes Phenytoin Sodium Extended [id number] Drug Allergy Unknown N/A 10/04/2015 Medications Medication Packaging Start Date St op Date Route Dosage Sig ORPHENADRINE INJ 60 MG/2CC (NORFLEX) MG 10/11/2018 10/11/2018 ONCE&2002 Problems Date Dx Coded Attending Type Code Diagnosis Diagnosed By 12/12/2008 FUENTES PATIÑO APRN 477.9 ALLERGIC RHINITIS 12/12/2008 FUENTES PATIÑO APRN 477.9 ALLERGIC RHINITIS 12/12/2008 477.9 AARON RGIC RHINITIS 12/12/2008 477.9 AARON RGIC RHINITIS 12/12/2008 477.9 AARON RGIC RHINITIS 12/12/2008 477.9 AARON RGIC RHINITIS 12/12/2008 477.9 AARON RGIC RHINITIS 12/12/2008 477.9 AARON RGIC RHINITIS 12/12/2008 477.9 AARON RGIC RHINITIS 12/12/2008 ELIAS DO, TOSHIA K 477.9 ALLERGIC RHINITIS 12/12/2008 HAROON LAN ANALYST, FUENTES S 477.9 ALLERGIC RHINITIS 12/12/2008 HAROON LAN ANALYST, FUENTES S 477.9 ALLERGIC RHINITIS 12/12/2008 ROBB CURTIS MD 477.9 ALLERGIC RHINITIS 12/12/2008 HAROON LAN ANALYST, FUENTES S 477.9 ALLERGIC RHINITIS 12/12/2008 LEONID SIMON, TOSHIA R 477.9 ALLERGIC RHINITIS 12/12/2008 ROBB CURTIS MD 477.9 ALLERGIC RHINITIS 12/12/2008 HAROON LAN ANALYST, FUENTES S 477.9 ALLERGIC RHINITIS 12/12/2008 ELIAS DO, TOSHIA K 477.9 ALLERGIC RHINITIS 12/12/2008 HAROON LAN ANALYST, FUENTES S 477.9 ALLERGIC RHINITIS 12/12/2008 HAROON LAN ANALYST, FUENTES S 477.9 ALLERGIC RHINITIS 12/12/2008 HAROON LAN ANALYST, FUENTES S 477.9 ALLERGIC RHINITIS 01/12/2009 HAROON LAN ANALYST, FUENTES S 272.4 DYSLIPIDEMIA 01/12/2009 HAROON LAN ANALYST, FUENTES S 401.1 ESSENTIAL HYPERTENSION BENIGN 01/12/2009 HAROON LAN ANALYST, FUENTES S 784.0 headache 01/12/2009 HAROON LAN ANALYST, FUENTES S V18.0 FAMILY HISTORY OF DIABETES MELLITUS 01/12/2009 HAROON LAN ANALYST, FUENTES S 272.4 DYSLIPIDEMIA 01/12/2009 HAROON MONROYN, FUENTES S 401.1 ESSENTIAL HYPERTENSION BENIGN 01/12/2009 HAROON MONROYN, FUENTES S 784.0 headache 01/12/2009 HAROON LAN ANALYST, FUENTES S V18.0 FAMILY HISTORY OF DIABETES MELLITUS 01/12/2009 272.4 DYSL IPIDEMIA 01/12/2009 401.1 ESSE NTIAL HYPERTENSION BENIGN 01/12/2009 784.0 headache 01/12/2009 V18.0 FAMI LY HISTORY OF DIABETES MELLITUS 01/12/2009 272.4 DYSL IPIDEMIA 01/12/2009 401.1 ESSE NTIAL HYPERTENSION BENIGN 01/12/2009 784.0 headache 01/12/2009 V18.0 FAMI LY HISTORY OF DIABETES MELLITUS 01/12/2009 272.4 DYSL IPIDEMIA 01/12/2009 401.1 ESSE NTIAL HYPERTENSION BENIGN 01/12/2009 784.0 headache 01/12/2009 V18.0 FAMI LY HISTORY OF DIABETES MELLITUS 01/12/2009 272.4 DYSL IPIDEMIA 01/12/2009 401.1 ESSE NTIAL HYPERTENSION BENIGN 01/12/2009 784.0 headache 01/12/2009 V18.0 FAMI LY HISTORY OF DIABETES MELLITUS 01/12/2009 272.4 DYSL IPIDEMIA 01/12/2009 401.1 ESSE NTIAL HYPERTENSION BENIGN 01/12/2009 784.0 headache 01/12/2009 V18.0 FAMI LY HISTORY OF DIABETES MELLITUS 01/12/2009 272.4 DYSL IPIDEMIA 01/12/2009 401.1 ESSE NTIAL HYPERTENSION BENIGN 01/12/2009 784.0 headache 01/12/2009 V18.0 FAMI LY HISTORY OF DIABETES MELLITUS 01/12/2009 272.4 DYSL IPIDEMIA 01/12/2009 401.1 ESSE NTIAL HYPERTENSION BENIGN 01/12/2009 784.0 headache 01/12/2009 V18.0 FAMI LY HISTORY OF DIABETES MELLITUS 01/12/2009 ELIAS DO, TOSHIA K 272.4 DYSLIPIDEMIA 01/12/2009 ELIAS DO, TOSHIA K 401.1 ESSENTIAL HYPERTENSION BENIGN 01/12/2009 ELIAS DO, TOSHIA K 784.0 headache 01/12/2009 ELIAS DO, TOSHIA K V18.0 FAMILY HISTORY OF DIABETES MELLITUS 01/12/2009 HAROON LAN ANALYST, FUENTES S 272.4 DYSLIPIDEMIA 01/12/2009 HAROON LAN ANALYST, FUENTES S 401.1 ESSENTIAL HYPERTENSION BENIGN 01/12/2009 HAROON LAN ANALYST, FUENTES S 784.0 headache 01/12/2009 HAROON LAN ANALYST, FUENTES S V18.0 FAMILY HISTORY OF DIABETES MELLITUS 01/12/2009 HAROON LAN ANALYST, FUENTES S 272.4 DYSLIPIDEMIA 01/12/2009 HAROON LAN ANALYST, FUENTES S 401.1 ESSENTIAL HYPERTENSION BENIGN 01/12/2009 HAROON LAN ANALYST, FUENTES S 784.0 headache 01/12/2009 HAROON LAN ANALYST, FUENTES S V18.0 FAMILY HISTORY OF DIABETES MELLITUS 01/12/2009 ROBB CURTIS MD 272.4 DYSLIPIDEMIA 01/12/2009 ROBB CURTIS MD 401.1 ESSENTIAL HYPERTENSION BENIGN 01/12/2009 ROBB CURTIS MD 784.0 headache 01/12/2009 ROBB CURTIS MD V18.0 FAMILY HISTORY OF DIABETES MELLITUS 01/12/2009 HAROON SIMON, FUENTES S 272.4 DYSLIPIDEMIA 01/12/2009 HAROON SIMON, FUENTES S 401.1 ESSENTIAL HYPERTENSION BENIGN 01/12/2009 HAROON SIMON, FUENTES S 784.0 headache 01/12/2009 HAROON SIMON, FUENTES S V18.0 FAMILY HISTORY OF DIABETES MELLITUS 01/12/2009 LEONID SIMON, TOSHIA R 272.4 DYSLIPIDEMIA 01/12/2009 LEONID SIMON, TOSHIA R 401.1 ESSENTIAL HYPERTENSION BENIGN 01/12/2009 LEONID SIMON, TOSHIA R 784.0 headache 01/12/2009 LEONID SIMON TOSHIA R V18.0 FAMILY HISTORY OF DIABETES MELLITUS 01/12/2009 ROBB CURTIS MD 272.4 DYSLIPIDEMIA 01/12/2009 ROBB CURTIS MD 401.1 ESSENTIAL HYPERTENSION BENIGN 01/12/2009 ROBB CURTIS MD 784.0 headache 01/12/2009 ROBB CURTIS MD V18.0 FAMILY HISTORY OF DIABETES MELLITUS 01/12/2009 HAROON SIMON, FUENTES S 272.4 DYSLIPIDEMIA 01/12/2009 HAROON SIMON, FUENTES S 401.1 ESSENTIAL HYPERTENSION BENIGN 01/12/2009 HAROON SIMON FUENTES S 784.0 headache 01/12/2009 HAROON SIMON, FUENTES S V18.0 FAMILY HISTORY OF DIABETES MELLITUS 01/12/2009 ELIAS DO, TOSHIA K 272.4 DYSLIPIDEMIA 01/12/2009 ELIAS DO, TOSHIA K 401.1 ESSENTIAL HYPERTENSION BENIGN 01/12/2009 ELIAS DO, TOSHIA K 784.0 headache 01/12/2009 ELIAS DO, TOSHIA K V18.0 FAMILY HISTORY OF DIABETES MELLITUS 01/12/2009 HAROON SIMON, FUENTES S 272.4 DYSLIPIDEMIA 01/12/2009 HAROON SIMON, FUENTES S 401.1 ESSENTIAL HYPERTENSION BENIGN 01/12/2009 HAROON LAN ANALYST, FUENTES S 784.0 headache 01/12/2009 HAROON LAN ANALYST, FUENTES S V18.0 FAMILY HISTORY OF DIABETES MELLITUS 01/12/2009 HAROON LAN ANALYST, FUENTES S 272.4 DYSLIPIDEMIA 01/12/2009 HAROON LAN ANALYST, FUENTES S 401.1 ESSENTIAL HYPERTENSION BENIGN 01/12/2009 HAROON LAN ANALYST, FUENTES S 784.0 headache 01/12/2009 HAROON LAN ANALYST, FUENTES S V18.0 FAMILY HISTORY OF DIABETES MELLITUS 01/12/2009 HAROON LAN ANALYST, FUENTES S 272.4 DYSLIPIDEMIA 01/12/2009 HAROON LAN ANALYST, FUENTES S 401.1 ESSENTIAL HYPERTENSION BENIGN 01/12/2009 HAROON LAN ANALYST, FUENTES S 784.0 headache 01/12/2009 HAROON LAN ANALYST, FUENTES S V18.0 FAMILY HISTORY OF DIABETES MELLITUS 02/01/2009 HAROON SIMON, FUENTES S 250.00 DIABETES MELLITUS TYPE II - UNCOMPLICATED, CONTROLLED 02/01/2009 HAROON SIMON, FUENTES S 272.1 PURE HYPERGLYCERIDEMIA 02/01/2009 HAROON SIMON, FUENTES S 564.1 IRRITABLE BOWEL SYNDROME 02/01/2009 HAROON SIMON, FUENTES S 250.00 DIABETES MELLITUS TYPE II - UNCOMPLICATED, CONTROLLED 02/01/2009 HAROON SIMON, FUENTES S 272.1 PURE HYPERGLYCERIDEMIA 02/01/2009 HAROON SIMON, FUENTES S 564.1 IRRITABLE BOWEL SYNDROME 02/01/2009 250.00 NAYA BETES MELLITUS TYPE II - UNCOMPLICATED, CONTROLLED 02/01/2009 272.1 PURE HYPERGLYCERIDEMIA 02/01/2009 564.1 IRRI TABLE BOWEL SYNDROME 02/01/2009 250.00 NAYA BETES MELLITUS TYPE II - UNCOMPLICATED, CONTROLLED 02/01/2009 272.1 PURE HYPERGLYCERIDEMIA 02/01/2009 564.1 IRRI TABLE BOWEL SYNDROME 02/01/2009 250.00 NAYA BETES MELLITUS TYPE II - UNCOMPLICATED, CONTROLLED 02/01/2009 272.1 PURE HYPERGLYCERIDEMIA 02/01/2009 564.1 IRRI TABLE BOWEL SYNDROME 02/01/2009 250.00 NAYA BETES MELLITUS TYPE II - UNCOMPLICATED, CONTROLLED 02/01/2009 272.1 PURE HYPERGLYCERIDEMIA 02/01/2009 564.1 IRRI TABLE BOWEL SYNDROME 02/01/2009 250.00 NAYA BETES MELLITUS TYPE II - UNCOMPLICATED, CONTROLLED 02/01/2009 272.1 PURE HYPERGLYCERIDEMIA 02/01/2009 564.1 IRRI TABLE BOWEL SYNDROME 02/01/2009 250.00 NAYA BETES MELLITUS TYPE II - UNCOMPLICATED, CONTROLLED 02/01/2009 272.1 PURE HYPERGLYCERIDEMIA 02/01/2009 564.1 IRRI TABLE BOWEL SYNDROME 02/01/2009 250.00 NAYA BETES MELLITUS TYPE II - UNCOMPLICATED, CONTROLLED 02/01/2009 272.1 PURE HYPERGLYCERIDEMIA 02/01/2009 564.1 IRRI TABLE BOWEL SYNDROME 02/01/2009 ELIAS DO TOSHIA K 250.00 DIABETES MELLITUS TYPE II - UNCOMPLICATED, CONTROLLED 02/01/2009 ELIAS DO TOSHIA K 272.1 PURE HYPERGLYCERIDEMIA 02/01/2009 ELIAS DO TOSHIA K 564.1 IRRITABLE BOWEL SYNDROME 02/01/2009 GIOVANI PATIÑO APRNA S 250.00 DIABETES MELLITUS TYPE II - UNCOMPLICATED, CONTROLLED 02/01/2009 SHAWN PATIÑO APRNNDA S 272.1 PURE HYPERGLYCERIDEMIA 02/01/2009 HAROON SIMON FUENTES S 564.1 IRRITABLE BOWEL SYNDROME 02/01/2009 HAROON SIMON FUENTES S 250.00 DIABETES MELLITUS TYPE II - UNCOMPLICATED, CONTROLLED 02/01/2009 HAROON SIMON FUENTES S 272.1 PURE HYPERGLYCERIDEMIA 02/01/2009 SHAWN PATIÑO APRNNDA S 564.1 IRRITABLE BOWEL SYNDROME 02/01/2009 ROBB CURTIS MD 250.0 0 DIABETES MELLITUS TYPE II - UNCOMPLICATED, CONTROLLED 02/01/2009 ROBB CURTIS MD 272.1 PURE HYPERGLYCERIDEMIA 02/01/2009 ROBB CURTIS MD 564.1 IRRITABLE BOWEL SYNDROME 02/01/2009 GIOVANI PATIÑO APRNA S 250.00 DIABETES MELLITUS TYPE II - UNCOMPLICATED, CONTROLLED 02/01/2009 HAROON SIMON FUENTES S 272.1 PURE HYPERGLYCERIDEMIA 02/01/2009 HAROON SIMON FUENTES S 564.1 IRRITABLE BOWEL SYNDROME 02/01/2009 JAQUEZ LAN ANALYST, TOSHIA R 250.00 DIABETES MELLITUS TYPE II - UNCOMPLICATED, CONTROLLED 02/01/2009 LEONID SIMON, TOSHIA R 272.1 PURE HYPERGLYCERIDEMIA 02/01/2009 TOSHIA JAQUEZ APRN R 564.1 IRRITABLE BOWEL SYNDROME 02/01/2009 ROBB CURTIS MD 250.0 0 DIABETES MELLITUS TYPE II - UNCOMPLICATED, CONTROLLED 02/01/2009 ROBB CURTIS MD 272.1 PURE HYPERGLYCERIDEMIA 02/01/2009 ROBB CURTIS MD 564.1 IRRITABLE BOWEL SYNDROME 02/01/2009 HAROON SIMON, FUENTES S 250.00 DIABETES MELLITUS TYPE II - UNCOMPLICATED, CONTROLLED 02/01/2009 HAROON SIMON, FUENTES S 272.1 PURE HYPERGLYCERIDEMIA 02/01/2009 HAROON SIMON, FUENTES S 564.1 IRRITABLE BOWEL SYNDROME 02/01/2009 JADA MUNIZ TOSHIA K 250.00 DIABETES MELLITUS TYPE II - UNCOMPLICATED, CONTROLLED 02/01/2009 ELIAS AUBRIEA K 272.1 PURE HYPERGLYCERIDEMIA 02/01/2009 AUBRIE ELIAS DOA K 564.1 IRRITABLE BOWEL SYNDROME 02/01/2009 HAROON SIMON, FUENTES S 250.00 DIABETES MELLITUS TYPE II - UNCOMPLICATED, CONTROLLED 02/01/2009 HAROON SIMON, FUENTES S 272.1 PURE HYPERGLYCERIDEMIA 02/01/2009 HAROON SIMON FUENTES S 564.1 IRRITABLE BOWEL SYNDROME 02/01/2009 HAROON SIMON, FUENTES S 250.00 DIABETES MELLITUS TYPE II - UNCOMPLICATED, CONTROLLED 02/01/2009 HAROON SIMON, FUENTES S 272.1 PURE HYPERGLYCERIDEMIA 02/01/2009 HAROON SIMON, FUENTES S 564.1 IRRITABLE BOWEL SYNDROME 02/01/2009 HAROON SIMON, FUENTES S 250.00 DIABETES MELLITUS TYPE II - UNCOMPLICATED, CONTROLLED 02/01/2009 HAROON SIMON, FUENTES S 272.1 PURE HYPERGLYCERIDEMIA 02/01/2009 HAROON SIMON, FUENTES S 564.1 IRRITABLE BOWEL SYNDROME 05/09/2009 HAROON SIMON FUENTES S 466.0 ACUTE BRONCHITIS 05/09/2009 HAROON SIMON FUENTES S 466.0 ACUTE BRONCHITIS 05/09/2009 466.0 ACUT E BRONCHITIS 05/09/2009 466.0 ACUT E BRONCHITIS 05/09/2009 466.0 ACUT E BRONCHITIS 05/09/2009 466.0 ACUT E BRONCHITIS 05/09/2009 466.0 ACUT E BRONCHITIS 05/09/2009 466.0 ACUT E BRONCHITIS 05/09/2009 466.0 ACUT E BRONCHITIS 05/09/2009 ELIAS DO, TOSHIA K 466.0 ACUTE BRONCHITIS 05/09/2009 HAROON LAN ANALYST, FUENTES S 466.0 ACUTE BRONCHITIS 05/09/2009 HAROON MONROYN, FUENTES S 466.0 ACUTE BRONCHITIS 05/09/2009 ROBB CURTIS MD 466.0 ACUTE BRONCHITIS 05/09/2009 HAROON SIMON, FUENTES S 466.0 ACUTE BRONCHITIS 05/09/2009 TOSHIA JAQUEZ APRN 466.0 ACUTE BRONCHITIS 05/09/2009 ROBB CURTIS MD 466.0 ACUTE BRONCHITIS 05/09/2009 HAROON SIMON, FUENTES S 466.0 ACUTE BRONCHITIS 05/09/2009 TOSHIA ELIAS DO K 466.0 ACUTE BRONCHITIS 05/09/2009 HAROON MONROYN, FUENTES S 466.0 ACUTE BRONCHITIS 05/09/2009 HAROON SIMON, FUENTES S 466.0 ACUTE BRONCHITIS 05/09/2009 HAROON SIMON, FUENTES S 466.0 ACUTE BRONCHITIS 06/07/2009 HAROON SIMON, FUENTES S 461.1 SINUSITIS ACUTE FRONTAL 06/07/2009 HAROON SIMON, FUENTES S 461.1 SINUSITIS ACUTE FRONTAL 06/07/2009 461.1 SINU SITIS ACUTE FRONTAL 06/07/2009 461.1 SINU SITIS ACUTE FRONTAL 06/07/2009 461.1 SINU SITIS ACUTE FRONTAL 06/07/2009 461.1 SINU SITIS ACUTE FRONTAL 06/07/2009 461.1 SINU SITIS ACUTE FRONTAL 06/07/2009 461.1 SINU SITIS ACUTE FRONTAL 06/07/2009 461.1 SINU SITIS ACUTE FRONTAL 06/07/2009 TOSHIA ELIAS DO K 461.1 SINUSITIS ACUTE FRONTAL 06/07/2009 SHAWN PATIÑO APRNNDA S 461.1 SINUSITIS ACUTE FRONTAL 06/07/2009 HAROON LAN ANALYST, FUENTES S 461.1 SINUSITIS ACUTE FRONTAL 06/07/2009 ROBB CURTIS MD 461.1 SINUSITIS ACUTE FRONTAL 06/07/2009 HAROON SIMON FUENTES S 461.1 SINUSITIS ACUTE FRONTAL 06/07/2009 TOSHIA JAQUEZ APRN 461.1 SINUSITIS ACUTE FRONTAL 06/07/2009 ROBB CURTIS MD 461.1 SINUSITIS ACUTE FRONTAL 06/07/2009 SHAWN PATIÑO APRNNDA S 461.1 SINUSITIS ACUTE FRONTAL 06/07/2009 TOSHIA ELIAS DO 461.1 SINUSITIS ACUTE FRONTAL 06/07/2009 HAROON LAN ANALYST, FUENTES S 461.1 SINUSITIS ACUTE FRONTAL 06/07/2009 SHAWN PATIÑO APRNNDA S 461.1 SINUSITIS ACUTE FRONTAL 06/07/2009 HAROON LAN ANALYSTSHAWN FishNDA S 461.1 SINUSITIS ACUTE FRONTAL 09/12/2009 SHAWN PATIÑO APRNNDA S 780.2 fainting (syncope) 09/12/2009 HAROON SIMON FUENTES S 780.4 VERTIGO 09/12/2009 HAROON SIMON FUENTES S 787.02 nausea 09/12/2009 SHAWN PATIÑO APRNNDA S 780.2 fainting (syncope) 09/12/2009 HAROON SIMON FUENTES S 780.4 VERTIGO 09/12/2009 SHAWN PATIÑO APRNNDA S 787.02 nausea 09/12/2009 780.2 kirsten ting (syncope) 09/12/2009 780.4 VERTIGO 09/12/2009 787.02 nausea 09/12/2009 780.2 kirsten ting (syncope) 09/12/2009 780.4 VERTIGO 09/12/2009 787.02 nausea 09/12/2009 780.2 kirsten ting (syncope) 09/12/2009 780.4 VERTIGO 09/12/2009 787.02 nausea 09/12/2009 780.2 kirsten ting (syncope) 09/12/2009 780.4 VERTIGO 09/12/2009 787.02 nausea 09/12/2009 780.2 kirsten ting (syncope) 09/12/2009 780.4 VERTIGO 09/12/2009 787.02 nausea 09/12/2009 780.2 kirsten ting (syncope) 09/12/2009 780.4 VERTIGO 09/12/2009 787.02 nausea 09/12/2009 780.2 kirsten ting (syncope) 09/12/2009 780.4 VERTIGO 09/12/2009 787.02 nausea 09/12/2009 ELIAS DO, TOSHIA K 780.2 fainting (syncope) 09/12/2009 ELIAS DO, TOSHIA K 780.4 VERTIGO 09/12/2009 ELIAS DO, TOSHIA K 787.02 nausea 09/12/2009 HAROON LAN ANALYST, FUENTES S 780.2 fainting (syncope) 09/12/2009 HAROON LAN ANALYST, FUENTES S 780.4 VERTIGO 09/12/2009 HAROON LAN ANALYST, FUENTES S 787.02 nausea 09/12/2009 HAROON LAN ANALYST, FUENTES S 780.2 fainting (syncope) 09/12/2009 HAROON LAN ANALYST, FUENTES S 780.4 VERTIGO 09/12/2009 HAROON SIMON, FUENTES S 787.02 nausea 09/12/2009 ROBB CURTIS MD 780.2 fainting (syncope) 09/12/2009 ROBB CURTIS MD 780.4 VERTIGO 09/12/2009 ROBB CURTIS MD 787.0 2 nausea 09/12/2009 SHAWN PATIÑO APRNNDA S 780.2 fainting (syncope) 09/12/2009 HAROON SIMON FUENTES S 780.4 VERTIGO 09/12/2009 HAROON SIMON FUENTES S 787.02 nausea 09/12/2009 LEONID SIMON TOSHIA R 780.2 fainting (syncope) 09/12/2009 LEONID SIMON, TOSHIA R 780.4 VERTIGO 09/12/2009 LEONID SIMON TOSHIA R 787.02 nausea 09/12/2009 ROBB CURTIS MD 780.2 fainting (syncope) 09/12/2009 ROBB CURTIS MD 780.4 VERTIGO 09/12/2009 ROBB CURTIS MD 787.0 2 nausea 09/12/2009 HAROON SIMON FUENTES S 780.2 fainting (syncope) 09/12/2009 HAROON LAN ANALYST, FUENTES S 780.4 VERTIGO 09/12/2009 HAROON LAN ANALYST, FUENTES S 787.02 nausea 09/12/2009 ELIAS DO, TOSHIA K 780.2 fainting (syncope) 09/12/2009 LEIAS DO, TOSHIA K 780.4 VERTIGO 09/12/2009 ELIAS DO, TOSHIA K 787.02 nausea 09/12/2009 HAROON LAN ANALYST, FUENTES S 780.2 fainting (syncope) 09/12/2009 HAROON LAN ANALYST, FUENTES S 780.4 VERTIGO 09/12/2009 HAROON LAN ANALYST, FUENTES S 787.02 nausea 09/12/2009 HAROON LAN ANALYST, FUENTES S 780.2 fainting (syncope) 09/12/2009 HAROON LAN ANALYST, FUENTES S 780.4 VERTIGO 09/12/2009 HAROON LAN ANALYST, FUENTES S 787.02 nausea 09/12/2009 HAROON LAN ANALYST, FUENTES S 780.2 fainting (syncope) 09/12/2009 HAROON LAN ANALYST, FUENTES S 780.4 VERTIGO 09/12/2009 HAROON SIMON, FUENTES S 787.02 nausea 10/11/2009 SHAWN PATIÑO APRNNDA S 372.30 CONJUNCTIVITIS - LEFT EYE 10/11/2009 SHAWN PATIÑO APRNNDA S 372.30 CONJUNCTIVITIS - LEFT EYE 10/11/2009 372.30 CON JUNCTIVITIS - LEFT EYE 10/11/2009 372.30 CON JUNCTIVITIS - LEFT EYE 10/11/2009 372.30 CON JUNCTIVITIS - LEFT EYE 10/11/2009 372.30 CON JUNCTIVITIS - LEFT EYE 10/11/2009 372.30 CON JUNCTIVITIS - LEFT EYE 10/11/2009 372.30 CON JUNCTIVITIS - LEFT EYE 10/11/2009 372.30 CON JUNCTIVITIS - LEFT EYE 10/11/2009 ELIAS DO, TOSHIA K 372.30 CONJUNCTIVITIS - LEFT EYE 10/11/2009 SHAWN PATIÑO APRNNDA S 372.30 CONJUNCTIVITIS - LEFT EYE 10/11/2009 SHAWN PATIÑO APRNNDA S 372.30 CONJUNCTIVITIS - LEFT EYE 10/11/2009 ROBB CURTIS MD 372.3 0 CONJUNCTIVITIS - LEFT EYE 10/11/2009 GIOVANI PATIÑO APRNA S 372.30 CONJUNCTIVITIS - LEFT EYE 10/11/2009 LEONID SIMON TOSHIA R 372.30 CONJUNCTIVITIS - LEFT EYE 10/11/2009 ROBB CURTIS MD 372.3 0 CONJUNCTIVITIS - LEFT EYE 10/11/2009 HAROON SIMON, FUENTES S 372.30 CONJUNCTIVITIS - LEFT EYE 10/11/2009 TOSHIA ELIAS DO 372.30 CONJUNCTIVITIS - LEFT EYE 10/11/2009 HAROON SIMON, FUENTES S 372.30 CONJUNCTIVITIS - LEFT EYE 10/11/2009 HAROON SIMON, FUENTES S 372.30 CONJUNCTIVITIS - LEFT EYE 10/11/2009 HAROON SIMON, FUENTES S 372.30 CONJUNCTIVITIS - LEFT EYE 03/08/2010 GIOVANI PATIÑO APRNA S 333.94 RESTLESS LEGS SYNDROME (RLS) 03/08/2010 GIOVANI PATIÑO APRNA S 715.11 OSTEOARTHROSIS LOCALIZED PRIMARY INVOLVING SHOULDER RE GION 03/08/2010 SHAWN PATIÑO APRNNDA S 729.5 limb pain 03/08/2010 GIOVANI PATIÑO APRNA S 781.2 walk is wobbly or unsteady (ataxia) [Sx] 03/08/2010 SHAWN PATIÑO APRNNDA S 333.94 RESTLESS LEGS SYNDROME (RLS) 03/08/2010 GIOVANI PATIÑO APRNA S 715.11 OSTEOARTHROSIS LOCALIZED PRIMARY INVOLVING SHOULDER RE GION 03/08/2010 SHAWN PATIÑO APRNNDA S 729.5 limb pain 03/08/2010 HAROON SIMON, FUENTES S 781.2 walk is wobbly or unsteady (ataxia) [Sx] 03/08/2010 333.94 RES TLESS LEGS SYNDROME (RLS) 03/08/2010 715.11 OST EOARTHROSIS LOCALIZED PRIMARY INVOLVING SHOULDER REGION 03/08/2010 729.5 limb pain 03/08/2010 781.2 walk is wobbly or unsteady (ataxia) [Sx] 03/08/2010 333.94 RES TLESS LEGS SYNDROME (RLS) 03/08/2010 715.11 OST EOARTHROSIS LOCALIZED PRIMARY INVOLVING SHOULDER REGION 03/08/2010 729.5 limb pain 03/08/2010 781.2 walk is wobbly or unsteady (ataxia) [Sx] 03/08/2010 333.94 RES TLESS LEGS SYNDROME (RLS) 03/08/2010 715.11 OST EOARTHROSIS LOCALIZED PRIMARY INVOLVING SHOULDER REGION 03/08/2010 729.5 limb pain 03/08/2010 781.2 walk is wobbly or unsteady (ataxia) [Sx] 03/08/2010 333.94 RES TLESS LEGS SYNDROME (RLS) 03/08/2010 715.11 OST EOARTHROSIS LOCALIZED PRIMARY INVOLVING SHOULDER REGION 03/08/2010 729.5 limb pain 03/08/2010 781.2 walk is wobbly or unsteady (ataxia) [Sx] 03/08/2010 333.94 RES TLESS LEGS SYNDROME (RLS) 03/08/2010 715.11 OST EOARTHROSIS LOCALIZED PRIMARY INVOLVING SHOULDER REGION 03/08/2010 729.5 limb pain 03/08/2010 781.2 walk is wobbly or unsteady (ataxia) [Sx] 03/08/2010 333.94 RES TLESS LEGS SYNDROME (RLS) 03/08/2010 715.11 OST EOARTHROSIS LOCALIZED PRIMARY INVOLVING SHOULDER REGION 03/08/2010 729.5 limb pain 03/08/2010 781.2 walk is wobbly or unsteady (ataxia) [Sx] 03/08/2010 333.94 RES TLESS LEGS SYNDROME (RLS) 03/08/2010 715.11 OST EOARTHROSIS LOCALIZED PRIMARY INVOLVING SHOULDER REGION 03/08/2010 729.5 limb pain 03/08/2010 781.2 walk is wobbly or unsteady (ataxia) [Sx] 03/08/2010 TOSHIA ELIAS DO 333.94 RESTLESS LEGS SYNDROME (RLS) 03/08/2010 TOSHIA ELIAS DO 715.11 OSTEOARTHROSIS LOCALIZED PRIMARY INVOLVING SHOULDER REGION 03/08/2010 TOSHIA ELIAS DO 729.5 limb pain 03/08/2010 TOSHIA ELIAS DO 781.2 walk is wobbly or unsteady (ataxia) [Sx] 03/08/2010 HAROON SIMON, FUENTES S 333.94 RESTLESS LEGS SYNDROME (RLS) 03/08/2010 SHAWN PATIÑO APRNNDA S 715.11 OSTEOARTHROSIS LOCALIZED PRIMARY INVOLVING SHOULDER RE GION 03/08/2010 HAROON SIMON, FUENTES S 729.5 limb pain 03/08/2010 SHAWN PATIÑO APRNNDA S 781.2 walk is wobbly or unsteady (ataxia) [Sx] 03/08/2010 SHAWN PATIÑO APRNNDA S 333.94 RESTLESS LEGS SYNDROME (RLS) 03/08/2010 HAROON SIMON, FUENTES S 715.11 OSTEOARTHROSIS LOCALIZED PRIMARY INVOLVING SHOULDER RE GION 03/08/2010 SHAWN PATIÑO APRNNDA S 729.5 limb pain 03/08/2010 GIOVANI PATIÑO APRNA S 781.2 walk is wobbly or unsteady (ataxia) [Sx] 03/08/2010 ROBB CURTIS MD 333.9 4 RESTLESS LEGS SYNDROME (RLS) 03/08/2010 ROBB CURTIS MD 715.1 1 OSTEOARTHROSIS LOCALIZED PRIMARY INVOLVING SHOULDER REGION 03/08/2010 ROBB CURTIS MD 729.5 limb pain 03/08/2010 ROBB CURTIS MD 781.2 walk is wobbly or unsteady (ataxia) [Sx] 03/08/2010 GIOVANI PATIÑO APRNA S 333.94 RESTLESS LEGS SYNDROME (RLS) 03/08/2010 GIOVANI PATIÑO APRNA S 715.11 OSTEOARTHROSIS LOCALIZED PRIMARY INVOLVING SHOULDER RE GION 03/08/2010 SHAWN PATIÑO APRNNDA S 729.5 limb pain 03/08/2010 SHAWN PATIÑO APRNNDA S 781.2 walk is wobbly or unsteady (ataxia) [Sx] 03/08/2010 JUAN JAQUEZ APRNIA R 333.94 RESTLESS LEGS SYNDROME (RLS) 03/08/2010 KAYLEN JAQUEZ APRNRICIA R 715.11 OSTEOARTHROSIS LOCALIZED PRIMARY INVOLVING SHOULDER RE GION 03/08/2010 LEONID SIMON TOSHIA R 729.5 limb pain 03/08/2010 TOSHIA JAQUEZ APRN 781.2 walk is wobbly or unsteady (ataxia) [Sx] 03/08/2010 ROBB CURTIS MD 333.9 4 RESTLESS LEGS SYNDROME (RLS) 03/08/2010 ROBB CURTIS MD 715.1 1 OSTEOARTHROSIS LOCALIZED PRIMARY INVOLVING SHOULDER REGION 03/08/2010 ROBB CURTIS MD 729.5 limb pain 03/08/2010 ROBB CURTIS MD 781.2 walk is wobbly or unsteady (ataxia) [Sx] 03/08/2010 HAROON SIMON FUENTES S 333.94 RESTLESS LEGS SYNDROME (RLS) 03/08/2010 SHAWN PATIÑO APRNNDA S 715.11 OSTEOARTHROSIS LOCALIZED PRIMARY INVOLVING SHOULDER RE GION 03/08/2010 HAROON SIMON FUENTES S 729.5 limb pain 03/08/2010 SHAWN PATIÑO APRNNDA S 781.2 walk is wobbly or unsteady (ataxia) [Sx] 03/08/2010 ELIAS DO, TOSHIA K 333.94 RESTLESS LEGS SYNDROME (RLS) 03/08/2010 ELIAS DO, TOSHIA K 715.11 OSTEOARTHROSIS LOCALIZED PRIMARY INVOLVING SHOULDER REGION 03/08/2010 ELIAS DO, TOSHIA K 729.5 limb pain 03/08/2010 ELIAS DO, TOSHIA K 781.2 walk is wobbly or unsteady (ataxia) [Sx] 03/08/2010 HAROON SIMON FUENTES S 333.94 RESTLESS LEGS SYNDROME (RLS) 03/08/2010 HRAOON SIMON FUENTES S 715.11 OSTEOARTHROSIS LOCALIZED PRIMARY INVOLVING SHOULDER RE GION 03/08/2010 HAROON SIMON FUENTES S 729.5 limb pain 03/08/2010 SHAWN PATIÑO APRNNDA S 781.2 walk is wobbly or unsteady (ataxia) [Sx] 03/08/2010 HAROON SIMON FUENTES S 333.94 RESTLESS LEGS SYNDROME (RLS) 03/08/2010 HAROON SIMON FUENTES S 715.11 OSTEOARTHROSIS LOCALIZED PRIMARY INVOLVING SHOULDER RE GION 03/08/2010 SHAWN PATIÑO APRNNDA S 729.5 limb pain 03/08/2010 HAROON SIMON, FUENTES S 781.2 walk is wobbly or unsteady (ataxia) [Sx] 03/08/2010 SHAWN PATIÑO APRNNDA S 333.94 RESTLESS LEGS SYNDROME (RLS) 03/08/2010 HAROON SIMON, FUENTES S 715.11 OSTEOARTHROSIS LOCALIZED PRIMARY INVOLVING SHOULDER RE GION 03/08/2010 HAROON SIMON, FUENTES S 729.5 limb pain 03/08/2010 HAROON SIMON, FUENTES S 781.2 walk is wobbly or unsteady (ataxia) [Sx] 06/14/2010 SHAWN PATIÑO APRNNDA S 724.2 lower back pain 06/14/2010 SHAWN PATIÑO APRNNDA S 724.2 lower back pain 06/14/2010 724.2 lowe r back pain 06/14/2010 724.2 lowe r back pain 06/14/2010 724.2 lowe r back pain 06/14/2010 724.2 lowe r back pain 06/14/2010 724.2 lowe r back pain 06/14/2010 724.2 lowe r back pain 06/14/2010 724.2 lowe r back pain 06/14/2010 TOSHIA ELIAS DO K 724.2 lower back pain 06/14/2010 HAROON SIMON, FUENTES S 724.2 LOWER BACK PAIN 06/14/2010 SHAWN PATIÑO APRNNDA S 724.2 lower back pain 06/14/2010 ROBB CURTIS MD 724.2 LOWER BACK PAIN 06/14/2010 SHAWN PATIÑO APRNNDA S 724.2 LOWER BACK PAIN 06/14/2010 TOSHIA JAQUEZ APRN 724.2 LOWER BACK PAIN 06/14/2010 ROBB CURTIS MD 724.2 LOWER BACK PAIN 06/14/2010 SHAWN PATIÑO APRNNDA S 724.2 LOWER BACK PAIN 06/14/2010 TOSHIA ELIAS DO K 724.2 LOWER BACK PAIN 06/14/2010 SHAWN PATIÑO APRNNDA S 724.2 LOWER BACK PAIN 06/14/2010 GIOVANI PATIÑO APRNA S 724.2 LOWER BACK PAIN 06/14/2010 GIOVANI PATIÑO APRNA S 724.2 LOWER BACK PAIN 08/09/2010 GIOVANI PATIÑO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 (PRIMARY) HYPERTENSION 08/26/2017 EFREM ALCALA MD Ot I25. 10 ATHSCL HEART DISEASE OF [place] CORONARY 08/26/2017 EFREM ALCALA MD Ot R07. 9 CHEST PAIN, UNSPECIFIED 08/26/2017 PAVAN OCAMPO Ot E78.2 MIXED HYPERLIPIDEMIA 08/26/2017 PAVAN OCAMPO Ot I10 ESSENTIAL (PRIMARY) HYPERTENSION 08/26/2017 PAVAN OCAMPO Ot I25.10 ATHSCL HEART DISEASE OF [place] CORONARY 08/26/2017 PAVAN OCAMPO Ot I65.29 OCCLUSION AND STENOSIS OF UNSPECIFIED CA 08/26/2017 HAROON FUENTES GREGORIO Ot Z12.31 ENCNTR SCREEN MAMMOGRAM FOR MALIGNANT NE 08/28/2017 NICOLA MEJÍA MD, Ot Z01.818 ENCOUNTER FOR OTHER PREPROCEDURAL EXAMIN 09/01/2017 NICOLA MEJÍA MD Ot E11.9 TYPE 2 DIABETES MELLITUS WITHOUT COMPLIC 09/01/2017 NICOLA MEJÍA MD Ot I1 0 ESSENTIAL (PRIMARY) HYPERTENSION 09/01/2017 NICOLA MEJÍA MD Ot I25.10 ATHSCL HEART DISEASE OF [place] CORONARY 09/01/2017 NICOLA MEJÍA MD, Ot J44.9 CHRONIC OBSTRUCTIVE PULMONARY DISEASE, U 09/01/2017 NICOLA MEJÍA MD, Ot J45.909 UNSPECIFIED ASTHMA, UNCOMPLICATED 09/01/2017 NICOLA MEJÍA MD Ot K57.30 DVRTCLOS OF LG INT W/O PERFORATION OR AB 09/01/2017 NICOLA MEJÍA MD Ot R19.5 OTHER FECAL ABNORMALITIES 09/01/2017 NICOLA MEJÍA MD Ot Z79.82 SENIOR CARE (CURRENT) USE OF ASPIRIN 09/01/2017 NICOLA MEJÍA MD Ot Z79.899 OTHER DYE TUB OPERATOR (CURRENT) DRUG THERAPY 09/03/2017 NICOLA MEJÍA MD, Ot E11.9 TYPE 2 DIABETES MELLITUS WITHOUT COMPLIC 09/03/2017 NICOLA MEJÍA MD, Ot I1 0 ESSENTIAL (PRIMARY) HYPERTENSION 09/03/2017 NICOLA MEJÍA MD Ot I25.10 ATHSCL HEART DISEASE OF [place] CORONARY 09/03/2017 NICOLA MEJÍA MD, Ot J44.9 CHRONIC OBSTRUCTIVE PULMONARY DISEASE, U 09/03/2017 NICOLA MEJÍA MD, Ot J45.909 UNSPECIFIED ASTHMA, UNCOMPLICATED 09/03/2017 NICOLA MEJÍA MD Ot K57.30 DVRTCLOS OF LG INT W/O PERFORATION OR AB 09/03/2017 NICOLA MEJÍA MD Ot R19.5 OTHER FECAL ABNORMALITIES 09/03/2017 NICOLA MEJÍA MD Ot Z79.82 SENIOR CARE (CURRENT) USE OF ASPIRIN 09/03/2017 NICOLA MEJÍA MD Ot Z79.899 OTHER DYE TUB OPERATOR (CURRENT) DRUG THERAPY 09/09/2017 NICOLA MEJÍA MD Ot E11.9 TYPE 2 DIABETES MELLITUS WITHOUT COMPLIC 09/09/2017 KYM WANG, NICOLA Samuel Ot I1 0 ESSENTIAL (PRIMARY) HYPERTENSION 09/09/2017 KYM WANG, NICOLA Samuel Ot I25.10 ATHSCL HEART DISEASE OF [place] CORONARY 09/09/2017 KYM WANG, NICOLA Samuel Ot J44.9 CHRONIC OBSTRUCTIVE PULMONARY DISEASE, U 09/09/2017 NICOLA MEJÍA MD, Ot J45.909 UNSPECIFIED ASTHMA, UNCOMPLICATED 09/09/2017 KYM WANG, NICOLA Samuel Ot K57.30 DVRTCLOS OF LG INT W/O PERFORATION OR AB 09/09/2017 NICOLA MEJÍA MD, Ot R19.5 OTHER FECAL ABNORMALITIES 09/09/2017 NICOLA MEJÍA MD, Ot Z79.82 DYE TUB 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 09/09/2017 NICOLA MEJÍA MD, Ot Z79.899 OTHER DYE TUB OPERATOR (CURRENT) DRUG THERAPY 12/22/2017 EFREM ALCALA MD Ot E04. 2 NONTOXIC MULTINODULAR GOITER 01/08/2018 EFREM ALCALA MD Ot E04. 2 NONTOXIC MULTINODULAR GOITER 04/10/2018 FUENTES PATIÑO AB INITIO ETL DEVELOPER Ot M81.0 AGE-RELATED OSTEOPOROSIS W/O CURRENT PAT 05/06/2018 FUENTES PATIÑO AB INITIO ETL DEVELOPER Ot M81.0 AGE-RELATED OSTEOPOROSIS W/O CURRENT PAT 05/11/2018 FUENTES PATIÑO Ot M81.0 AGE-RELATED OSTEOPOROSIS W/O CURRENT PAT 05/12/2018 FUENTES PATIÑO Ot V76.12 OTH SCREEN MAMMO-MALIGN NEOPLASM OF [place] 05/12/2018 EFREM ALCALA MD Ot 272. 4 HYPERLIPIDEMIA NEC/NOS 05/12/2018 EFREM ALCALA MD Ot 397. 0 TRICUSPID VALVE DISEASE 05/12/2018 EFREM ALCALA MD Ot 401. 9 HYPERTENSION NOS 05/12/2018 EFREM ALCALA MD Ot 414. 00 CORON ATHEROSCLER NOS TYPE VESSEL, NATIV 05/12/2018 EFREM ALCALA MD Ot 424. 0 MITRAL VALVE DISORDER 05/12/2018 EFREM ALCALA MD Ot 786. 09 RESPIRATORY ABNORM NEC 05/12/2018 EFREM ALCALA MD Ot 401. 9 HYPERTENSION NOS 05/12/2018 EFREM ALCALA MD Ot 414. 00 CORON ATHEROSCLER NOS TYPE VESSEL, NATIV 05/12/2018 EFREM ALCALA MD Ot 786. 09 RESPIRATORY ABNORM NEC 05/12/2018 FUENTES PATIÑO Ot V76.12 OTH SCREEN MAMMO-MALIGN NEOPLASM OF [place] 05/12/2018 PAVAN OCAMPO Ot 272.4 HYPERLIPIDEMIA NEC/NOS 05/12/2018 PAVAN OCAMPO Ot 401.9 HYPERTENSION NOS 05/12/2018 PAVAN OCAMPO Ot 414.00 CORON ATHEROSCLER NOS TYPE VESSEL, NATIV 05/12/2018 PAVAN OCAMPO Ot 496 CHR AIRWAY OBSTRUCT NEC 05/12/2018 FUENTES PATIÑO Ot Z12.31 ENCNTR SCREEN MAMMOGRAM FOR MALIGNANT NE 05/12/2018 PAVAN OCAMPO Ot E78.5 HYPERLIPIDEMIA, UNSPECIFIED 05/12/2018 EFREM ALCALA MD Ot E78. 2 MIXED HYPERLIPIDEMIA 05/12/2018 EFREM ALCALA MD Ot I10 ESSENTIAL (PRIMARY) HYPERTENSION 05/12/2018 EFREM ALCALA MD Ot I25. 10 ATHSCL HEART DISEASE OF [place] CORONARY 05/12/2018 EFREM ALCALA MD Ot R07. 9 CHEST PAIN, UNSPECIFIED 05/12/2018 EFREM ALCALA MD Ot E78. 2 MIXED HYPERLIPIDEMIA 05/12/2018 EFREM ALCALA MD Ot I10 ESSENTIAL (PRIMARY) HYPERTENSION 05/12/2018 EFREM ALCALA MD Ot I25. 10 ATHSCL HEART DISEASE OF [place] CORONARY 05/12/2018 EFREM ALCALA MD Ot R07. 9 CHEST PAIN, UNSPECIFIED 05/12/2018 PAVAN OCAMPO Ot E78.2 MIXED HYPERLIPIDEMIA 05/12/2018 PAVAN OCAPMO Ot I10 ESSENTIAL (PRIMARY) HYPERTENSION 05/12/2018 PAVAN OCAMPO Ot I25.10 ATHSCL HEART DISEASE OF [place] CORONARY 05/12/2018 PAVAN OCAMPO Ot I65.29 OCCLUSION AND STENOSIS OF UNSPECIFIED CA 05/12/2018 FUENTES PATIÑO Ot Z12.31 ENCNTR SCREEN MAMMOGRAM FOR MALIGNANT NE 05/12/2018 HOMERO WANG, EFREM Eden Ot E04. 2 NONTOXIC MULTINODULAR GOITER 05/12/2018 FUENTES PATIÑO Ot M81.0 AGE-RELATED OSTEOPOROSIS W/O CURRENT PAT 06/09/2018 FUENTES PATIÑO Ot M81.0 AGE-RELATED OSTEOPOROSIS W/O CURRENT PAT 06/09/2018 FUENTES PATIÑO Ot M85.80 OT DISRD OF BONE DENSITY AND STRUCTURE, 06/09/2018 FUENTES PATIÑO Ot Z78.0 ASYMPTOMATIC MENOPAUSAL STATE 10/11/2018 HILL RAE APRN W 401 .0 MALIGNANT ESSENTIAL HYPERTENSION 10/11/2018 HILL RAE APRN W 726 .2 OTHER AFFECTIONS OF SHOULDER REGION, NOT ELSEWHERE CLASSIFIED 10/11/2018 HILL RAE APRN W I10 ESSENTIAL (PRIMARY) HYPERTENSION 10/11/2018 HILL RAE APRN M54 .5 LOW BACK PAIN 10/11/2018 HILL RAE APRN W M75 .42 IMPINGEMENT SYNDROME OF LEFT SHOULDER 10/11/2018 HILL RAE APRN W S06.0X9A CONCUSSION W LOSS OF CONSCIOUSNESS OF UNSP DURATION, I NIT 10/11/2018 HILL RAE APRN S70.02XA CONTUSION OF LEFT HIP, INITIAL ENCOUNTER 11/27/2018 PAVAN OCAMPO Ot I10 ESSENTIAL (PRIMARY) HYPERTENSION 11/27/2018 PAVAN OCAMPO Ot I25.10 ATHSCL HEART DISEASE OF [place] CORONARY 11/27/2018 PAVAN OCAMPO Ot I34.0 NONRHEUMATIC MITRAL (VALVE) INSUFFICIENC 11/27/2018 PAVAN OCAMPO Ot I65.29 OCCLUSION AND STENOSIS OF UNSPECIFIED CA 12/19/2018 JENNIFER MADDEN 920 CONTUSION OF FACE, SCALP, AND NECK EXCEPT EYE(S) 12/19/2018 JENNIFER MADDEN W I10 ESSENTIAL (PRIMARY) HYPERTENSION 12/19/2018 JENNIFER MADDEN M54.5 LOW BACK PAIN 12/19/2018 JENNIFER MADDEN M75.4 2 IMPINGEMENT SYNDROME OF LEFT SHOULDER 12/19/2018 JENNIFER MADDEN S00.0 3XA CONTUSION OF SCALP, INITIAL ENCOUNTER 12/19/2018 JENNIFER MADDEN S06.0 X9A CONCUSSION W LOSS OF CONSCIOUSNESS OF UNSP DURATION, INIT 12/19/2018 JENNIFER MADDEN S70.0 2XA CONTUSION OF LEFT HIP, INITIAL ENCOUNTER 02/09/2019 PAVAN OCAMPO Ot I10 ESSENTIAL (PRIMARY) HYPERTENSION 02/09/2019 PAVAN OCAMPO Ot I25.10 ATHSCL HEART DISEASE OF [place] CORONARY 02/09/2019 PAVAN OCAMPO Ot I65.29 OCCLUSION AND STENOSIS OF UNSPECIFIED CA 02/09/2019 PAVAN OCAMPO Ot R07.9 CHEST PAIN, UNSPECIFIED 02/09/2019 PAVAN OCAMPO Ot R60.9 EDEMA, UNSPECIFIED 03/02/2019 PAVAN OCAMPO Ot I10 ESSENTIAL (PRIMARY) HYPERTENSION 03/02/2019 PAVAN OCAMPO Ot I25.10 ATHSCL HEART DISEASE OF [place] CORONARY 03/02/2019 PAVAN OCAMPO Ot I65.29 OCCLUSION AND STENOSIS OF UNSPECIFIED CA 03/02/2019 PAVAN OCAMPO Ot R07.9 CHEST PAIN, UNSPECIFIED 03/02/2019 PAVAN OCAMPO Ot R60.9 EDEMA, UNSPECIFIED 03/03/2019 EFREM ALCALA MD Ot E11. 9 TYPE 2 DIABETES MELLITUS WITHOUT COMPLIC 03/03/2019 EFREM ALCALA MD Ot E78. 2 MIXED HYPERLIPIDEMIA 03/03/2019 EFREM ALCALA MD Ot G25. 81 RESTLESS LEGS SYNDROME 03/03/2019 EFREM ALCALA MD Ot G89. 29 OTHER CHRONIC PAIN 03/03/2019 EFREM ALCALA MD Ot I10 ESSENTIAL (PRIMARY) HYPERTENSION 03/03/2019 EFREM ALCALA MD Ot I25. 10 ATHSCL HEART DISEASE OF [place] CORONARY 03/03/2019 EFREM ALCALA MD Ot I73. 9 PERIPHERAL VASCULAR DISEASE, UNSPECIFIED 03/03/2019 EFREM ALCALA MD Ot J44. 9 CHRONIC OBSTRUCTIVE PULMONARY DISEASE, U 03/03/2019 EFREM ALCALA MD Ot R55 SYNCOPE AND COLLAPSE 03/03/2019 EFREM ALCALA MD Ot Z79. 82 SENIOR CARE (CURRENT) USE OF ASPIRIN 03/03/2019 EFREM ALCALA MD Ot Z82. 3 FAMILY HISTORY OF STROKE 03/03/2019 EFREM ALCALA MD Ot Z83. 3 FAMILY HISTORY OF DIABETES MELLITUS 03/03/2019 EFREM ALCALA MD Ot Z88. 5 ALLERGY STATUS TO NARCOTIC AGENT STATUS 03/03/2019 EFREM ALCALA MD, Ot Z88. 8 ALLERGY STATUS TO OTH DRUG/MEDS/BIOL SUB 03/03/2019 EFREM ALCALA MD, Ot Z90. 49 ACQUIRED ABSENCE OF OTHER SPECIFIED PART 03/03/2019 EFREM ALCALA MD Ot Z90.710 ACQUIRED ABSENCE OF BOTH CERVIX AND UTER 03/05/2019 EFREM ALCALA MD Ot E11. 9 TYPE 2 DIABETES MELLITUS WITHOUT COMPLIC 03/05/2019 EFREM ALCALA MD Ot E78. 2 MIXED HYPERLIPIDEMIA 03/05/2019 EFREM ALCALA MD Ot G25. 81 RESTLESS LEGS SYNDROME 03/05/2019 EFREM ALACLA MD Ot G89. 29 OTHER CHRONIC PAIN 03/05/2019 EFREM ALCALA MD Ot I10 ESSENTIAL (PRIMARY) HYPERTENSION 03/05/2019 EFREM ALCALA MD Ot I25. 10 ATHSCL HEART DISEASE OF [place] CORONARY 03/05/2019 EFREM ALCALA MD Ot I73. 9 PERIPHERAL VASCULAR DISEASE, UNSPECIFIED 03/05/2019 EFREM ALCALA MD, Ot J44. 9 CHRONIC OBSTRUCTIVE PULMONARY DISEASE, U 03/05/2019 EFREM ALCALA MD Ot R55 SYNCOPE AND COLLAPSE 03/05/2019 EFREM ALCALA MD Ot Z79. 82 SENIOR CARE (CURRENT) USE OF ASPIRIN 03/05/2019 EFREM ALCALA MD, Ot Z82. 3 FAMILY HISTORY OF STROKE 03/05/2019 EFREM ALCALA MD Ot Z83. 3 FAMILY HISTORY OF DIABETES MELLITUS 03/05/2019 EFREM ALCALA MD Ot Z88. 5 ALLERGY STATUS TO NARCOTIC AGENT STATUS 03/05/2019 EFREM ALCALA MD, Ot Z88. 8 ALLERGY STATUS TO OT DRUG/MEDS/BIOL SUB 03/05/2019 EFREM ALCALA MD, Ot Z90. 49 ACQUIRED ABSENCE OF OTHER SPECIFIED PART 03/05/2019 EFREM ALCALA MD, Ot Z90.710 ACQUIRED ABSENCE OF BOTH CERVIX AND UTER Procedures Code Description Performed By Per formed On Orthopedi Silver Fong 02/28/2012 14251 MAMM OGRAM, SCREENING 03/02/2012 06536 ROUT INE VENIPUNCTURE 06/09/2012 01662 A1C (IN-HOUSE) 06/09/2012 97876 CMP 06/09/2012 [id number] GF R CALC (RESULT ONLY) 06/09/2012 98812 CBC 06/09/2012 Cardiolog Efrem Alcala 07/01/2012 40086 MAMM OGRAM, SCREENING 05/04/2013 33974 ROUT INE VENIPUNCTURE 07/26/2013 43844 CBC 07/26/2013 [id number] GF R CALC (RESULT ONLY) 07/26/2013 25834 BMP 07/26/[id number] OOL FOR BACTERIAL PATHOGENS 07/28/2013 76670 WART DESTRUCT 1-14 (CRYO) 02/10/2014 00146 AMERITOX 02/14/2014 Results Test Result Range Methicillin resistant Staphylococcus aur eus (MRSA) screening culture - 10/04/15 11:30 Methicillin resistant Staphylococcus aureus (MRSA) scr eening culture NEG NRG Liver function panel (serum or plasma al k phos, alb, total and direct bili, total protein, ALT, AST) - 10/13/15 09:00 Serum or plasma total bilirubin measurement (mass/volu me) 1.0 mg/dL 0.1-1.0 Serum or plasma alkaline phosphatase evy surement (enzymatic activity/volume) 65 U/L 40-136 Serum or plasma aspartate aminotransfera se measurement (enzymatic activity/volume) 12 U/L 5-34 Serum or plasma alanine aminotransferase measurement (enzymatic activity/volume) 14 U/L 0-55 Serum or plasma protein measurement (mass/volume) 6.2 g/dL 6.4-8.2 Serum or plasma albumin measurement (mass/volume) 4.2 g/dL 3.2-4.5 Bilirubin direct 0.3 mg/dL 0.0-0.3 Serum or plasma indirect bilirubin measurement (mass/v olume) 0.7 mg/dL [facility] Lipid 1996 panel - 10/13/15 09:00 Serum or plasma triglyceride measurement (mass/volume) 154 mg/dL <150 Serum or plasma cholesterol measurement (mass/volume) 175 mg/dL < 200 Serum or plasma cholesterol in HDL measurement (mass/v olume) 44 mg/dL 40-60 Cholesterol in LDL [mass/volume] in serum or plasma by direct assay 97 mg/dL 1-129 Serum or plasma cholesterol in VLDL measurement (mass/ volume) 31 mg/dL 5-40 Aerobic Bacterial Culture - 01/12/16 16: 44 Aerobic Bacterial Culture Note CBC With Differential/Platelet - 6 17:50 WBC 9.9 x10E3/uL 3.4-10.8 RBC 4.33 x10E6/uL 3.77-5.28 Hemoglobin 12.4 g/dL 11.1-15.9 Hematocrit 39.2 % 34.0-46.6 MCV 91 fL 79-97 MCH 28.6 pg 26.6-33.0 MCHC 31.6 g/dL 31.5-35.7 RDW 13.3 % 12.3-15.4 Platelets 294 x10E3/uL 150-379 Neutrophils 47 % Lymphs 42 % Monocytes 8 % Eos 2 % Basos 1 % Neutrophils (Absolute) 4.7 x10E3/uL 1.4- 7.0 Lymphs (Absolute) 4.2 x10E3/uL 0.7-3.1 Monocytes(Absolute) 0.7 x10E3/uL 0.1-0.9 Eos (Absolute) 0.2 x10E3/uL 0.0-0.4 Baso (Absolute) 0.1 x10E3/uL 0.0-0.2 Immature Granulocytes 0 % Immature Grans (Abs) 0.0 x10E3/uL 0.0-0. 1 Comp. Metabolic Panel (14) - 02/22/16 17 :50 Glucose, Serum 84 mg/dL 65-99 BUN 11 mg/dL 8-27 Creatinine, Serum 0.81 mg/dL 0.57-1.00 eGFR If NonAfricn Am 75 mL/min/1.73 >59 eGFR If Africn Am 86 mL/min/1.73 >59 BUN/Creatinine Ratio 14 11-26 Sodium, Serum 141 mmol/L 134-144 Potassium, Serum 3.7 mmol/L 3.5-5.2 Chloride, Serum 101 mmol/L 96-106 Carbon Dioxide, Total 29 mmol/L 18-29 Calcium, Serum 9.5 mg/dL 8.7-10.3 Protein, Total, Serum 6.5 g/dL 6.0-8.5 Albumin, Serum 4.6 g/dL 3.6-4.8 Globulin, Total 1.9 g/dL 1.5-4.5 A/G Ratio 2.4 1.1-2.5 Bilirubin, Total 0.9 mg/dL 0.0-1.2 Alkaline Phosphatase, S 60 IU/L 39-117 AST (SGOT) 11 IU/L 0-40 ALT (SGPT) 8 IU/L 0-32 Complete urinalysis with reflex to cultu re - 01/18/17 18:41 Urine color determination YELLOW NRG Urine clarity determination CLEAR NR G Urine pH measurement by test strip 6.5 5-9 Specific gravity of urine by test strip 1.010 1.016-1.022 Urine protein assay by test strip, semi-quantitative 1+ NEGATIVE Urine glucose detection by automated test strip NE GATIVE NEGATIVE Erythrocytes detection in urine sediment by light micr oscopy NEGATIVE NEGATIVE Urine ketones detection by automated test strip NE GATIVE NEGATIVE Urine nitrite detection by test strip NEGATIVE NEGATIVE Urine total bilirubin detection by test strip NEGA TIVE NEGATIVE Urine urobilinogen measurement by automated test strip (mass/volume) NORMAL NORMAL Urine leukocyte esterase detection by dipstick NEG ATIVE NEGATIVE Automated urine sediment erythrocyte cou nt by microscopy (number/high power field) NONE NRG Automated urine sediment leukocyte count by microscopy (number/high power field) NONE NRG Bacteria detection in urine sediment by light microsco py NONE NRG Squamous epithelial cells detection in u rine sediment by light microscopy 5-10 NRG Crystals detection in urine sediment by light microsco py NONE NRG Casts detection in urine sediment by light microscopy NONE NRG Mucus detection in urine sediment by light microscopy NEGATIVE NRG Complete urinalysis with reflex to culture NO NRG Complete blood count (CBC) with automate d white blood cell (WBC) differential - 01/18/17 18:44 Blood leukocytes automated count (number/volume) 8.5 10*3/uL 4.3-11.0 Blood erythrocytes automated count (number/volume) 4.64 10*6/uL 4.35-5.85 Venous blood hemoglobin measurement (mass/volume) 13.6 g/dL 11.5-16.0 Blood hematocrit (volume fraction) 41 % 35-52 Automated erythrocyte mean corpuscular volume 88 [ foz_us] 80-99 Automated erythrocyte mean corpuscular h emoglobin (mass per erythrocyte) 29 pg 25-34 Automated erythrocyte mean corpuscular h emoglobin concentration measurement (mass/volume) 33 g/dL 32-36 Automated erythrocyte distribution width ratio 12. 8 % 10.0- 14.5 Automated blood platelet count (count/volume) 243 10*3/uL 130-400 Automated blood platelet mean volume measurement 10.3 [foz_us] 7.4-10.4 Automated blood neutrophils/100 leukocytes 56 % 42-75 Automated blood lymphocytes/100 leukocytes 32 % 12-44 Blood monocytes/100 leukocytes 9 % 0-12 Automated blood eosinophils/100 leukocytes 3 % 0-10 Automated blood basophils/100 leukocytes 1 % 0-10 Blood neutrophils automated count (number/volume) 4.8 10*3 1.8-7.8 Blood lymphocytes automated count (number/volume) 2.7 10*3 1.0-4.0 Blood monocytes automated count (number/volume) 0. 7 10*3 0.0-1.0 Automated eosinophil count 0.2 10*3/uL 0 .0-0.3 Automated blood basophil count (count/volume) 0.1 10*3/uL 0.0-0.1 PT panel in platelet poor plasma by coag ulation assay - 01/18/17 18:44 Prothrombin time (PT) in platelet poor plasma by coagu lation assay 12.4 s 12.2-14.7 INR in platelet poor plasma or blood by coagulation as say 0.9 0.8-1.4 Activated partial thromboplastin time (a PTT) in platelet poor plasma bycoagulation assay - 01/18/17 18:44 Activated partial thromboplastin time (a PTT) in platelet poor plasma bycoagulation assay 22 s 24-35 Comprehensive metabolic panel - 01/18/17 18:44 Serum or plasma sodium measurement (moles/volume) 140 mmol/L 135-145 Serum or plasma potassium measurement (moles/volume) 3.5 mmol/L 3.6-5.0 Serum or plasma chloride measurement (moles/volume) 104 mmol/L 98-107 Carbon dioxide 26 mmol/L 21-32 Serum or plasma anion gap determination (moles/volume) 10 mmol/L 5-14 Serum or plasma urea nitrogen measurement (mass/volume ) 11 mg/dL 7-18 Serum or plasma creatinine measurement (mass/volume) 0.75 mg/dL 0.60-1.30 Serum or plasma urea nitrogen/creatinine mass ratio 15 NRG Serum or plasma creatinine measurement w ith calculation of estimated glomerular filtration rate > NRG Serum or plasma glucose measurement (mass/volume) 101 mg/dL 70-105 Serum or plasma calcium measurement (mass/volume) 9.5 mg/dL 8.5-10.1 Serum or plasma total bilirubin measurement (mass/volu me) 1.1 mg/dL 0.1-1.0 Serum or plasma alkaline phosphatase evy surement (enzymatic activity/volume) 60 U/L 40-136 Serum or plasma aspartate aminotransfera se measurement (enzymatic activity/volume) 12 U/L 5-34 Serum or plasma alanine aminotransferase measurement (enzymatic activity/volume) 13 U/L 0-55 Serum or plasma protein measurement (mass/volume) 6.8 g/dL 6.4-8.2 Serum or plasma albumin measurement (mass/volume) 4.2 g/dL 3.2-4.5 Serum or plasma troponin i.cardiac measu rement (mass/volume) - 01/18/17 18:44 Serum or plasma troponin i.cardiac measurement (mass/v olume) < ng/mL <0.30 Serum or plasma amylase measurement (enz ymatic activity/volume) - 01/18/17 18:44 Serum or plasma amylase measurement (enzymatic activit y/volume) 49 U/L 25-125 Lipase - 01/18/17 18:44 Lipase 35 U/L 8-78 CMP - 05/18/18 08:39 GLUCOSE 104 mg/dL 65-99 UREA NITROGEN (BUN) 20 mg/dL 7-25 CREATININE 0.82 mg/dL 0.60-0.93 eGFR NON-AFR. TUNISIAN 72 mL/min/1.73m2 > OR = 60 eGFR 84 mL/min/1.73m2 > OR = 60 BUN/CREATININE RATIO NOT APPLICABLE (calc) 6-22 SODIUM 141 mmol/L 135-146 POTASSIUM 4.5 mmol/L 3.5-5.3 CHLORIDE 106 mmol/L 98-110 CARBON DIOXIDE 28 mmol/L 20-32 CALCIUM 9.3 mg/dL 8.6-10.4 PROTEIN, TOTAL 6.4 g/dL 6.1-8.1 ALBUMIN 4.4 g/dL 3.6-5.1 GLOBULIN 2.0 g/dL (calc) 1.9-3.7 ALBUMIN/GLOBULIN RATIO 2.2 (calc) 1.0-2. 5 BILIRUBIN, TOTAL 0.9 mg/dL 0.2-1.2 ALKALINE PHOSPHATASE 69 U/L 33-130 AST 13 U/L 10-35 ALT 10 U/L 6-29 Cardiac Panel - 10/11/18 19:25 CK 42 U/L 26-174 CK-MB 0.8 ng/ml 0.0-9.2 Myoglobin 20.5 ng/ml 1.6-106.0 Troponin <0.020 ng/mL 0.0-0.4 Urinalysis - 10/11/18 19:55 Icotest N/A Negative Urine Volume Urine Volume Sufficient (10mL) Urine Yeast No Yeast present Urine-Appearance Slightly Cloudy Clear Urine-Bacteria Rare Urine-Bilirubin Negative Negative Urine-Blood Negative Negative Urine-Color Yellow Colorless-Lt. [place] ow Urine-Epithelial Cells 2-5/HPF Urine-Glucose Negative Negative Urine-Ketones Negative Negative Urine-Leukocytes Negative Negative Urine-Nitrite Negative Negative Urine-Other Urine Saved if Culture Need ed (48hrs from time of collection) Urine-pH 6.5 5-8.5 Urine-Protein Negative Negative Urine-RBC 0-2/HPF Urine-Specific [place] 1.020 1.000-1 .030 Urine-WBC 2-5/HPF Urobilinogen 0.2 0.2-1.0 Automated blood complete blood count (he mogram) panel - 03/03/19 07:05 Blood leukocytes automated count (number/volume) 8.0 10*3/uL 4.3-11.0 Blood erythrocytes automated count (number/volume) 4.79 10*6/uL 4.35-5.85 Venous blood hemoglobin measurement (mass/volume) 14.1 g/dL 11.5-16.0 Blood hematocrit (volume fraction) 43 % 35-52 Automated erythrocyte mean corpuscular volume 90 [ foz_us] 80-99 Automated erythrocyte mean corpuscular h emoglobin (mass per erythrocyte) 29 pg 25-34 Automated erythrocyte mean corpuscular h emoglobin concentration measurement (mass/volume) 33 g/dL 32-36 Automated erythrocyte distribution width ratio 13. 1 % 10.0- 14.5 Automated blood platelet count (count/volume) 269 10*3/uL 130-400 Automated blood platelet mean volume measurement 10.0 [foz_us] 7.4-10.4 Complete urinalysis with reflex to cultu re - 03/03/19 07:05 Urine color determination YELLOW NRG Urine clarity determination CLEAR NR G Urine pH measurement by test strip 7.0 5-9 Specific gravity of urine by test strip 1.025 1.016-1.022 Urine protein assay by test strip, semi-quantitative NEGATIVE NEGATIVE Urine glucose detection by automated test strip NE GATIVE NEGATIVE Erythrocytes detection in urine sediment by light micr oscopy NEGATIVE NEGATIVE Urine ketones detection by automated test strip NE GATIVE NEGATIVE Urine nitrite detection by test strip NEGATIVE NEGATIVE Urine total bilirubin detection by test strip NEGA TIVE NEGATIVE Urine urobilinogen measurement by automated test strip (mass/volume) 1.0 mg/dL < = 1.0 Urine leukocyte esterase detection by dipstick NEG ATIVE NEGATIVE Automated urine sediment erythrocyte cou nt by microscopy (number/high power field) NONE NRG Automated urine sediment leukocyte count by microscopy (number/high power field) NONE NRG Bacteria detection in urine sediment by light microsco py TRACE NRG Squamous epithelial cells detection in u rine sediment by light microscopy 25-50 NRG Crystals detection in urine sediment by light microsco py NONE NRG Casts detection in urine sediment by light microscopy NONE NRG Mucus detection in urine sediment by light microscopy SMALL NRG Complete urinalysis with reflex to culture NO NRG Comprehensive metabolic panel - 03/03/19 07:05 Serum or plasma sodium measurement (moles/volume) 143 mmol/L 135-145 Serum or plasma potassium measurement (moles/volume) 3.8 mmol/L 3.6-5.0 Serum or plasma chloride measurement (moles/volume) 105 mmol/L 98-107 Carbon dioxide 26 mmol/L 21-32 Serum or plasma anion gap determination (moles/volume) 12 mmol/L 5-14 Serum or plasma urea nitrogen measurement (mass/volume ) 12 mg/dL 7-18 Serum or plasma creatinine measurement (mass/volume) 0.81 mg/dL 0.60-1.30 Serum or plasma urea nitrogen/creatinine mass ratio 15 NRG Serum or plasma creatinine measurement w ith calculation of estimated glomerular filtration rate > NRG Serum or plasma glucose measurement (mass/volume) 104 mg/dL 70-105 Serum or plasma calcium measurement (mass/volume) 9.5 mg/dL 8.5-10.1 Serum or plasma total bilirubin measurement (mass/volu me) 1.1 mg/dL 0.1-1.0 Serum or plasma alkaline phosphatase evy surement (enzymatic activity/volume) 75 U/L 40-136 Serum or plasma aspartate aminotransfera se measurement (enzymatic activity/volume) 15 U/L 5-34 Serum or plasma alanine aminotransferase measurement (enzymatic activity/volume) 12 U/L 0-55 Serum or plasma protein measurement (mass/volume) 7.2 g/dL 6.4-8.2 Serum or plasma albumin measurement (mass/volume) 4.7 g/dL 3.2-4.5 Lipid 1996 panel - 03/03/19 07:05 Serum or plasma triglyceride measurement (mass/volume) 184 mg/dL <150 Serum or plasma cholesterol measurement (mass/volume) 208 mg/dL < 200 Serum or plasma cholesterol in HDL measurement (mass/v olume) 51 mg/dL 40-60 Cholesterol in LDL [mass/volume] in serum or plasma by direct assay 123 mg/dL 1-129 Serum or plasma cholesterol in VLDL measurement (mass/ volume) 37 mg/dL 5-40 PT panel in platelet poor plasma by coag ulation assay - 03/03/19 07:05 Prothrombin time (PT) in platelet poor plasma by coagu lation assay 13.3 s 12.2-14.7 INR in platelet poor plasma or blood by coagulation as say 1.0 0.8-1.4 Activated partial thromboplastin time (a PTT) in platelet poor plasma bycoagulation assay - 03/03/19 07:05 Activated partial thromboplastin time (a PTT) in platelet poor plasma bycoagulation assay 38 s 24-35 Methicillin resistant Staphylococcus aur eus (MRSA) screening culture - 03/03/19 07:05 Methicillin resistant Staphylococcus aureus (MRSA) scr eening culture NEG NRG Encounters ACCT No. Visit Date/Time Discharge Status Pt. Type Provider Facility Loc./Unit Complaint [id number] 12/19/2018 22:00:00 12/19/2018 23:30: 00 DIS Outpatient JENNIFER MADDEN [facility] ER [id number] 10/11/2018 18:30:00 10/11/2018 20:40: 00 DIS Outpatient HILL RAE APRN [place] [facility] ER [id number] 11/25/2016 15:22:00 11/25/2016 17:12: 00 DIS Outpatient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
== END 2019-07-19 09:52 | disposition home or self-care (01) ==
LOC: EDUNIT# 09:02 → ER 09:03
DX: S30.861A Insect bite (nonvenomous) of abdominal wall, initial encounter (principal); J44.9 Chronic obstructive pulmonary disease, unspecified; I10 Essential (primary) hypertension; E78.00 Pure hypercholesterolemia, unspecified; I25.10 Atherosclerotic heart disease of native coronary artery without angina pectoris; K21.9 Gastro-esophageal reflux disease without esophagitis; Z88.6 Allergy status to analgesic agent; Z95.5 Presence of coronary angioplasty implant and graft; Z88.5 Allergy status to narcotic agent; Z88.8 Allergy status to other drugs, medicaments and biological substances; Z79.82 Long term (current) use of aspirin; W57.XXXA Bitten or stung by nonvenomous insect and other nonvenomous arthropods, initial encounter
CPT/HCPCS: 99281

== ENCOUNTER → 2019-07-28 | Outpatient (CLI) | payer MEDICARE ==
[~2019-07-28] MED LIST changes: +BARIUM for suspension 96% w/w (Vanilla Silq Medium Density) PO ONE; +BARIUM for suspension 98% w/w (Vanilla Silq High Density) PO ONE; +DOXY100T2 PO
--- NOTE | 2019-07-28 10:38 | Diagnostic Imaging Report ---
INDICATION: Dysphasia. Patient ingested effervescent crystals as well as thin and thick barium and imaging of esophagus was performed. A total of 1 minute and 7 seconds of fluoroscopic time was utilized. 62 images were obtained. Preliminary radiograph is unremarkable. Upper esophagus has a normal contour. No mass or stricture is seen. Mid and distal esophagus does show a moderate amount of tertiary contractions on multiple swallows consistent with esophageal dysmotility. No stricture or mass was visualized. There is a small hiatal hernia present. No significant gastroesophageal reflux was demonstrated. IMPRESSION: Esophageal dysmotility and small sliding-type hiatal hernia. No mass or stricture was identified. Dictated by: Dictated on workstation # [id number]
== END ==
LOC: RAD 08:52
PROVIDERS: ATTEND Surgery
DX: K44.9 Diaphragmatic hernia without obstruction or gangrene (principal); K22.8 Other specified diseases of esophagus; R47.02 Dysphasia
CPT/HCPCS: 74220

== ENCOUNTER 2019-08-05 05:44 | Outpatient (RCR) | payer MEDICARE ==
[~2019-08-05] VITALS: Ht 157 cm; Wt 74.0 kg
[~2019-08-05 05:44] MED LIST changes: -BARIUM for suspension 96% w/w (Vanilla Silq Medium Density) PO ONE; -BARIUM for suspension 98% w/w (Vanilla Silq High Density) PO ONE
[2019-08-10] MEDS ORDERED: SUCR1TAB36 PO (13:51)
== END 2019-08-05 15:06 | disposition home or self-care (01) ==
LOC: PREOP 05:44
PROVIDERS: ATTEND Surgery
DX: Z01.812 Encounter for preprocedural laboratory examination (principal); R13.10 Dysphagia, unspecified; Z20.828 Contact with and (suspected) exposure to other viral communicable diseases
CPT/HCPCS: 87635

== ENCOUNTER 2019-08-10 12:37 | Day surgery (SDC) | payer MEDICARE ==
[~2019-08-10] VITALS: Ht 157 cm; Wt 74.0 kg
[2019-08-10] MEDS ORDERED: LACTATED RINGERS 1,000 ML IV STA (12:46)
[2019-08-10] MEDS ORDERED: LACTATED RINGERS 1,000 ML IV ONE (12:48)
[2019-08-10] MEDS ORDERED: proPOfol 200 MG/20 ML (DIPRIVAN) VIAL IV ONE ×2 (12:51→13:44)
[2019-08-10 13:02] VITALS: BP 179/97
--- NOTE | 2019-08-10 13:14 | Progress Note-Pre Operative ---
Pre-Operative Progress Note H&P Reviewed The H&P was reviewed, patient examined and no changes noted. Date Seen by Provider: Aug 10, 2019 Time Seen by Provider: 13:13 Date H&P Reviewed: Aug 10, 2019 Time H&P Reviewed: 13:13 Pre-Operative Diagnosis: dysphagia CHRIS QUINTEROS DO Aug 10, 2019 13:14
[2019-08-10] MEDS ORDERED: HURRICAINE EXT TUBE (BENZOCAINE) XX ONE (13:15)
[2019-08-10] MEDS ORDERED: HURRICAINE EXT TUBE (BENZOCAINE) ONE (13:21)
--- NOTE | 2019-08-10 13:49 | Progress Note-Post Operative ---
Post-Operative Progess Note Surgeon (s)/Absorption And Adsorption Engineer (s) Surgeon CHRIS QUINTEROS DO Absorption And Adsorption Engineer: na Pre-Operative Diagnosis dysphagia Post-Operative Diagnosis hiatal hernia, antral ulcers, schatski's ring Procedure & Operative Findings Date of Procedure 08/10/19 Procedure Performed/Findings egd c biopsies Anesthesia Type per mda Estimated Blood Loss Estimated blood loss (mL): scant Specimens/Packing Specimens Removed antrum, ge CHRIS QUINTEROS DO Aug 10, 2019 13:49
[2019-08-10 13:50] VITALS: BP 136/87
[2019-08-10] MEDS ORDERED: SUCR1TAB36 PO (13:51)
--- NOTE | 2019-08-10 13:51 | Discharge Inst-Simple/Standard ---
Discharge Inst-Standard Discharge Medications New, Converted or Re-Newed RX: Transmitted to Pharmacy Patient Instructions/Follow Up Plan of Care/Instructions/FU: 2 weeks Ailyn Activity as Tolerated: Yes Discharge Diet: Regular Diet (ulcer diet) CHRIS QUINTEROS DO Aug 10, 2019 13:51
--- NOTE | 2019-08-10 13:54 | Anesthesia-General Post-Op ---
MAC Patient Condition Mental Status/LOC: Same as Preop Cardiovascular: Satisfactory Nausea/Vomiting: Absent Respiratory: Satisfactory Pain: Controlled Complications: Absent Post Op Complications Complications None Follow Up Care/Instructions Patient Instructions None needed. Anesthesiology Discharge Order Discharge Order Patient is doing well, no complaints, stable vital signs, no apparent adverse anesthesia problems. ADIS SANZ DO Aug 10, 2019 13:54
[2019-08-10 13:55] VITALS: BP 134/85
[2019-08-10 14:20] VITALS: BP 164/95
[2019-08-10 14:40] VITALS: BP 164/95
--- NOTE | 2019-08-10 18:18 | OPERATIVE REPORT ---
DATE OF SERVICE: 08/10/2019 PREOPERATIVE DIAGNOSIS: Dysphagia. POSTOPERATIVE DIAGNOSES: Hiatal hernia, antral ulcer, Schatzki's ring. SURGEON: Chris Robertson DO ANESTHESIA: Per MDA. ESTIMATED BLOOD LOSS: Scant. COMPLICATIONS: None. INDICATIONS: The patient is a 73-year-old female with dysphagia. She had barium swallow demonstrating sliding hiatal hernia and dysmotility. She understands risks and benefits of procedure and wished to proceed with procedure. Consent was signed on the chart. DESCRIPTION OF PROCEDURE: The patient was taken to the endoscopy suite, placed in left lateral recumbent position. Timeout was performed. Scope was inserted in mouth, down the esophagus, stomach and into the duodenum without difficulty. There were no polyps, masses or ulcerations within the duodenum. Scope was then slowly retracted back into the stomach where it was further insufflated. Antral ulcerations present. Biopsies were obtained. Scope was retroflexed noting hiatal hernia, no other pathology. Scope was then returned to its normal position, slowly withdrawn to the distal esophagus. Schatzki's ring is present. Biopsies of this area were obtained. The scope was then slowly retracted back until completely removed noting no other pathology. The patient tolerated procedure well without any complications. She was taken to recovery room in stable condition. RECOMMENDATIONS: The patient will continue on Protonix. We will add Carafate 1 gram four times a day. We will see how her symptoms are doing at that point. Job ID: [id number] DocumentID: [id number] Dictated Date: 08/10/2019 13:53:55 [address] Contractor Date: 08/10/2019 18:17:50 Dictated By: CHRIS ROBERTSON DO
== END 2019-08-10 14:40 | disposition home or self-care (01) ==
LOC: ENDO 12:37
PROVIDERS: ATTEND Surgery
DX: K29.50 Unspecified chronic gastritis without bleeding (principal); K21.0 Gastro-esophageal reflux disease with esophagitis; K22.2 Esophageal obstruction; K25.9 Gastric ulcer, unspecified as acute or chronic, without hemorrhage or perforation; K44.9 Diaphragmatic hernia without obstruction or gangrene; I10 Essential (primary) hypertension; J44.9 Chronic obstructive pulmonary disease, unspecified; E78.2 Mixed hyperlipidemia; I73.9 Peripheral vascular disease, unspecified; G25.81 Restless legs syndrome; G89.29 Other chronic pain; I25.10 Atherosclerotic heart disease of native coronary artery without angina pectoris; Z95.5 Presence of coronary angioplasty implant and graft; Z88.8 Allergy status to other drugs, medicaments and biological substances; Z88.5 Allergy status to narcotic agent; Z79.82 Long term (current) use of aspirin; Z79.891 Long term (current) use of opiate analgesic; Z79.899 Other long term (current) drug therapy; Z90.49 Acquired absence of other specified parts of digestive tract; Z90.710 Acquired absence of both cervix and uterus
CPT/HCPCS: 88305; 88312

== ENCOUNTER 2019-12-21 10:20 | Emergency (ER) | payer MEDICARE ==
[~2019-12-21] VITALS: Ht 157.4 cm; Wt 75.2 kg
[~2019-12-21 10:20] MED LIST changes: -ACET-2715 PO; +ACET-3075 PO; +AMLO-251 PO; -AMLO10TA7 PO; -PANT40TA3 PO; +PANT40TA52 PO; +SUCR1TAB36 PO
[2019-12-21 11:07] LABS: BASOPHILS # (AUTO) 0.1 10^3/uL (0.0-0.1); BASOPHILS % (AUTO) 1 % (0-10); EOSINOPHILS # (AUTO) 0.2 10^3/uL (0.0-0.3); EOSINOPHILS % (AUTO) 3 % (0-10); HEMATOCRIT 40 % (35-52); LYMPHOCYTES # (AUTO) 2.8 10^3/uL (1.0-4.0); LYMPHOCYTES % (AUTO) 34 % (12-44); MEAN CORPUSCULAR HEMOGLOBIN 29 pg (25-34); MEAN CORPUSCULAR HGB CONC 32 g/dL (32-36); MEAN CORPUSCULAR VOLUME 91 fL (80-99); MONOCYTES # (AUTO) 0.5 10^3/uL (0.0-1.0); MONOCYTES % (AUTO) 7 % (0-12); NEUTROPHILS # (AUTO) 4.4 10^3/uL (1.8-7.8); NEUTROPHILS % (AUTO) 55 % (42-75); PLATELET COUNT 268 10^3/uL (130-400); WHITE BLOOD COUNT 8.1 10^3/uL (4.3-11.0)
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
[2019-12-21 11:28] LABS: ALBUMIN 4.3 GM/DL (3.2-4.5); CHLORIDE 105 MMOL/L (98-107); POTASSIUM 3.5 MMOL/L (3.6-5.0); SODIUM 141 MMOL/L (135-145)
[2019-12-21 11:29] LABS: CALCIUM 9.2 MG/DL (8.5-10.1)
[2019-12-21 11:30] LABS: GLUCOSE 109 MG/DL (70-105)
[2019-12-21 11:31] LABS: TOTAL PROTEIN 6.7 GM/DL (6.4-8.2)
[2019-12-21 11:32] LABS: BILIRUBIN,TOTAL 0.9 MG/DL (0.1-1.0); CARBON DIOXIDE 25 MMOL/L (21-32); INR 0.9 (0.8-1.4); PROTHROMBIN TIME PATIENT 12.7 SEC (12.2-14.7)
[2019-12-21 11:34] LABS: ALKALINE PHOSPHATASE 62 U/L (40-136); CREATININE SERUM 0.73 MG/DL (0.60-1.30); GFR ESTIMATED > 60
[2019-12-21 11:35] LABS: BUN/CREATININE RATIO 15
[2019-12-21 11:37] LABS: ALANINE AMINOTRANSFERASE 13 U/L (0-55)
[2019-12-21 11:58] LABS: FREE T4 (FREE THYROXINE) 0.88 NG/DL (0.70-1.48)
--- NOTE | 2019-12-21 12:24 | Diagnostic Imaging Report ---
INDICATION: Bilateral feet swelling and chest pain. Time of exam 12:16 p.m. Correlation is made to prior chest from 07/28/2019. The heart size is normal. The pulmonary vascularity is unremarkable. The lungs are clear. No infiltrate, effusion or pneumothorax is detected. IMPRESSION: No acute cardiopulmonary process is detected. Dictated by: Dictated on workstation # [id number]
[2019-12-21 14:12] LABS: BILIRUBIN,URINE NEGATIVE (NEGATIVE); CLARITY,URINE CLEAR; COLOR,URINE YELLOW; GLUCOSE, URINE (UA) NEGATIVE (NEGATIVE); KETONES,URINE NEGATIVE (NEGATIVE); LEUKOCYTE ESTERASE ,URINE NEGATIVE (NEGATIVE); NITRITE,URINE NEGATIVE (NEGATIVE); PROTEIN,URINE NEGATIVE (NEGATIVE)
[2019-12-21] MEDS ORDERED: LISI-552 PO (14:15)
[2019-12-21 14:26] LABS: BACTERIA,URINE NEGATIVE /HPF; SQUAMOUS EPITHELIAL CELL,UR 0-2 /HPF; WBC,URINE RARE /HPF
[2019-12-21 14:36] VITALS: BP 156/109
== END 2019-12-21 14:40 | disposition home or self-care (01) ==
LOC: EDUNIT# 10:20 → ER 10:22
DX: I10 Essential (primary) hypertension (principal); R35.0 Frequency of micturition; J44.9 Chronic obstructive pulmonary disease, unspecified; E78.00 Pure hypercholesterolemia, unspecified; I25.10 Atherosclerotic heart disease of native coronary artery without angina pectoris; K21.9 Gastro-esophageal reflux disease without esophagitis; E11.9 Type 2 diabetes mellitus without complications; Z95.5 Presence of coronary angioplasty implant and graft; Z95.9 Presence of cardiac and vascular implant and graft, unspecified; Z88.5 Allergy status to narcotic agent; Z88.8 Allergy status to other drugs, medicaments and biological substances; Z79.82 Long term (current) use of aspirin
CPT/HCPCS: 36415; 71045; 80053; 81000; 83735; 83874; 83880; 84439; 84443; 84484; 85025; 85610; 85730; 93005

== ENCOUNTER → 2020-01-26 | Outpatient (CLI) | payer MEDICARE ==
[~2020-01-26] MED LIST changes: +LISI-552 PO
--- NOTE | 2020-01-26 14:17 | Diagnostic Imaging Report ---
Indication: Routine screening. Comparison is made to prior mammogram 05/21/2017 and 09/25/2015. 2-D and 3-D bilateral screening mammography was performed with CAD. Both breasts are heterogeneously dense, limiting the sensitivity of mammography. No dominant mass or malignant appearing microcalcifications are seen. Axillae are unremarkable. IMPRESSION: BI-RADS Category 1 No mammographic features suspicious for malignancy are identified. ACR BI-RADS Category 1: Negative. Result letter will be mailed to the patient. Note: At least 10% of breast cancer is not imaged by mammography. Dictated by: Dictated on workstation # [id number]
== END ==
LOC: RAD 10:00
PROVIDERS: ATTEND Nurse Practitioner Community Health
DX: Z12.31 Encounter for screening mammogram for malignant neoplasm of breast (principal)
CPT/HCPCS: 77063; 77067

== ENCOUNTER 2020-03-23 10:45 | Emergency (ER) | payer OTHER, MEDICARE ==
[~2020-03-23] VITALS: Ht 157 cm; Wt 75.2 kg
[~2020-03-23 10:45] MED LIST changes: -MONT10TA26 PO; +MONT10TA97 PO
[2020-03-23] MEDS ORDERED: ORPHENADRINE 60 MG/2 ML (NORFLEX) AMP (ED ONLY) IM ONE (11:45)
[2020-03-23] MEDS ORDERED: KETOROLAC 60 MG/2 ML VIAL IM ONE (11:45)
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
--- NOTE | 2020-03-23 13:35 | Diagnostic Imaging Report ---
INDICATION: Neck, back, and shoulder pain. COMPARISON: Comparison is made with previous CT cervical spine of 01/18/2017 and thoracic spine. TECHNIQUE: Noncontrasted images were obtained with sagittal and coronal reformatting. FINDINGS: The cervical and thoracic spine show good alignment. Fusion of the C4-C5 disc with posterior hardware appears intact. No change in appearance of the hardware. There is calcification annulus of the disc C6-C7 which appears unchanged without significant encroachment. The odontoid is intact. The atlantoaxial joint appears normal. The surrounding soft tissues appear normal. Thoracic spine shows mild wedge-type compression fracture at T10 and T12. These are unchanged in appearance since previous exam. There are no acute changes. Degenerative disc disease with desiccation of vacuum phenomena noted throughout from T6 through T12. No evidence of spinal stenosis. There is a calcified mass filling approximately 50% of the canal at the level of T8 along the right half. This does appear to abut the dural surface and has the contour of the dura along the right lateral side. This measures approximately 1.2 cm in diameter and is quite round in appearance. IMPRESSION: 1. Calcified mass noted at the level of T8 filling approximately 50% of the lumen on the right. 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 Would recommend MRI of the thoracic spine with and without IV contrast to help better delineate. Dictated by: Dictated on workstation # [id number]
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
[2020-03-23] MEDS ORDERED: IBUP-1780 PO (13:39)
[2020-03-23] MEDS ORDERED: METH-313 PO (13:39)
[2020-03-23 13:48] VITALS: BP 137/82
== END 2020-03-23 13:48 | disposition home or self-care (01) ==
LOC: EDUNIT# 10:45 → ER 10:47
DX: S16.1XXA Strain of muscle, fascia and tendon at neck level, initial encounter (principal); E78.00 Pure hypercholesterolemia, unspecified; I10 Essential (primary) hypertension; I25.10 Atherosclerotic heart disease of native coronary artery without angina pectoris; K21.9 Gastro-esophageal reflux disease without esophagitis; J44.9 Chronic obstructive pulmonary disease, unspecified; Z95.5 Presence of coronary angioplasty implant and graft; Z95.9 Presence of cardiac and vascular implant and graft, unspecified; Z88.8 Allergy status to other drugs, medicaments and biological substances; Z87.891 Personal history of nicotine dependence; Z79.82 Long term (current) use of aspirin; V69.9XXA Occupant (driver) (passenger) of heavy transport vehicle injured in unspecified traffic accident, initial encounter
CPT/HCPCS: 72125; 72128; 73030

== ENCOUNTER → 2020-05-03 | Outpatient (CLI) | payer MEDICARE ==
[~2020-05-03] MED LIST changes: +GADOBUTROL 7.5 MMOL/7.5 ML (GADAVIST) VIAL IV ONE; +IBUP-1780 PO; +ISOS30TA82 PO; -LISI-552 PO; +LISI20TA26 PO; -LISI40TA PO; +LISI40TA9 PO; +METH-313 PO; +MONT10TA32 PO; -MONT10TA97 PO
--- NOTE | 2020-05-03 14:26 | Diagnostic Imaging Report ---
EXAM: MRI THORACIC SPINE W/WO CON INDICATION: Thoracic spine mass. COMPARISON: CT thoracic spine without contrast 03/23/2020. FINDINGS: Intradural extra medullary well-circumscribed enhancing mass in the spinal canal at the level of T8 occupies approximately 50% of the spinal canal and displaces the spinal cord towards the left. No abnormal signal or enhancement within the thoracic spinal cord itself is identified. No other spinal canal stenosis in the thoracic spine. Moderate diffuse degenerative endplate changes. Chronic anterior wedging of a few lower thoracic vertebral bodies. No acute osseous findings. No suspicious bone marrow enhancement. Visualized paravertebral soft tissues are unremarkable. IMPRESSION: Enhancing intradural extra medullary mass in the spinal canal at the level of T8 most likely represents a benign meningioma, possibly a schwannoma. This results in displacement of the spinal cord towards the left with no apparent compression of the cord or abnormal signal within the cord. Dictated by: Dictated on workstation # [id number]
== END ==
LOC: RAD 09:30
PROVIDERS: ATTEND Family Medicine
DX: D49.2 Neoplasm of unspecified behavior of bone, soft tissue, and skin (principal)
CPT/HCPCS: 72157

== ENCOUNTER 2020-06-25 09:50 | Emergency (ER) | payer MEDICARE ==
[~2020-06-25] VITALS: Ht 157 cm; Wt 72.5 kg
[~2020-06-25 09:50] MED LIST changes: -GADOBUTROL 7.5 MMOL/7.5 ML (GADAVIST) VIAL IV ONE
[2020-06-25 11:26] LABS: BASOPHILS # (AUTO) 0.1 10^3/uL (0.0-0.1); BASOPHILS % (AUTO) 1 % (0-10); EOSINOPHILS # (AUTO) 0.3 10^3/uL (0.0-0.3); EOSINOPHILS % (AUTO) 4 % (0-10); HEMATOCRIT 41 % (35-52); HEMOGLOBIN 13.2 g/dL (11.5-16.0); LYMPHOCYTES # (AUTO) 2.9 10^3/uL (1.0-4.0); LYMPHOCYTES % (AUTO) 40 % (12-44); MEAN CORPUSCULAR HEMOGLOBIN 30 pg (25-34); MEAN CORPUSCULAR HGB CONC 32 g/dL (32-36); MEAN CORPUSCULAR VOLUME 95 fL (80-99); MEAN PLATELET VOLUME 10.3 fL (9.0-12.2); MONOCYTES # (AUTO) 0.5 10^3/uL (0.0-1.0); MONOCYTES % (AUTO) 7 % (0-12); NEUTROPHILS # (AUTO) 3.6 10^3/uL (1.8-7.8); NEUTROPHILS % (AUTO) 48 % (42-75); PLATELET COUNT 268 10^3/uL (130-400); WHITE BLOOD COUNT 7.4 10^3/uL (4.3-11.0)
[2020-06-25 11:57] LABS: CHLORIDE 105 MMOL/L (98-107); POTASSIUM 4.1 MMOL/L (3.6-5.0); SODIUM 142 MMOL/L (135-145)
[2020-06-25 11:58] LABS: CALCIUM 9.3 MG/DL (8.5-10.1); GLUCOSE 97 MG/DL (70-105)
[2020-06-25 12:00] LABS: CARBON DIOXIDE 26 MMOL/L (21-32)
[2020-06-25 12:02] LABS: CREATININE SERUM 0.75 MG/DL (0.60-1.30); GFR ESTIMATED > 60
[2020-06-25 12:03] LABS: BUN/CREATININE RATIO 15
[2020-06-25 12:04] LABS: MAGNESIUM 1.9 MG/DL (1.6-2.4)
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
[2020-06-25 14:10] VITALS: BP 140/84
[2020-06-25] MEDS ORDERED: CYCL5TAB PO (14:21)
== END 2020-06-25 14:10 | disposition home or self-care (01) ==
LOC: EDUNIT# 09:50 → ER 09:51
DX: G47.62 Sleep related leg cramps (principal); J44.9 Chronic obstructive pulmonary disease, unspecified; I10 Essential (primary) hypertension; K21.9 Gastro-esophageal reflux disease without esophagitis; E78.00 Pure hypercholesterolemia, unspecified; I25.10 Atherosclerotic heart disease of native coronary artery without angina pectoris; E11.9 Type 2 diabetes mellitus without complications; Z88.5 Allergy status to narcotic agent; Z88.8 Allergy status to other drugs, medicaments and biological substances; Z87.891 Personal history of nicotine dependence; Z95.5 Presence of coronary angioplasty implant and graft; Z95.9 Presence of cardiac and vascular implant and graft, unspecified; Z79.82 Long term (current) use of aspirin; Z79.899 Other long term (current) drug therapy
CPT/HCPCS: 36415; 80048; 83735; 83880; 85025

== ENCOUNTER → 2020-09-11 | Outpatient (CLI) | payer MEDICARE ==
[~2020-09-11] MED LIST changes: +CATHETER FLUSH 10 ML SYR IV PRN; +CYCL5TAB PO; +HOLD METFORMIN - RECEIVED CONTRAST 20 ML VIAL IV SCH; +IOHEXOL 350 MG/ML 100 ML (OMNIPAQUE 350) VIAL IV ONE; +NS 100 ML (IVPB) BAG IV ONE
--- NOTE | 2020-09-11 09:42 | Diagnostic Imaging Report ---
EXAMINATION: CT abdomen and pelvis with and without intravenous contrast. TECHNIQUE: Precontrast acquisitions were acquired through the abdomen and pelvis. Multiple contiguous axial images were obtained through the abdomen and pelvis after the administration of intravenous contrast. All CT scans use one or more of the following dose optimizing techniques: automated exposure control, MA and/or KvP adjustment based on patient size and exam type or iterative reconstruction. HISTORY: Renal mass evaluation COMPARISON: CT abdomen and pelvis 01/18/2017. FINDINGS: Lung bases: Bibasilar dependent atelectasis. Solid organs: The liver is normal without focal lesion. The gallbladder is surgically absent. There is no biliary ductal dilation. Pancreas is normal. Spleen is normal. Adrenal glands are normal. There are stable bilateral right renal cortical cysts measuring up to 1.2 cm. There is no suspicious enhancing lesion or hydronephrosis. No visualized renal calculus. Bowel: The stomach and small bowel are normal without obstruction. Surgical changes of the colon. Peritoneum: There is no intraperitoneal free fluid or free air. No suspicious lymphadenopathy. Vasculature: Calcification of the aorta without aneurysm. Musculoskeletal: Chronic compression deformity of T10 vertebral body. Multilevel degenerative changes spine without suspicious osseous lesion. Surgical changes of the right abdominal wall. Pelvis: The uterus is surgically absent. No adnexal mass. The urinary bladder is normal. IMPRESSION: 1. Simple right renal cysts measuring up to 1.2 cm. No suspicious enhancing renal lesion. 2. No visualized renal calculus or hydronephrosis. 3. Surgical changes of the colon without bowel obstruction. Dictated by: Dictated on workstation # [id number]
== END ==
LOC: RAD 08:45
PROVIDERS: ATTEND Family Medicine
DX: N28.1 Cyst of kidney, acquired (principal)
CPT/HCPCS: 74178

== ENCOUNTER 2020-12-24 07:43 | Emergency (ER) | payer MEDICARE, MEDICAID ==
[~2020-12-24] VITALS: Ht 157 cm; Wt 72.0 kg
[~2020-12-24 07:43] MED LIST changes: -CATHETER FLUSH 10 ML SYR IV PRN; -HOLD METFORMIN - RECEIVED CONTRAST 20 ML VIAL IV SCH; -IOHEXOL 350 MG/ML 100 ML (OMNIPAQUE 350) VIAL IV ONE; -NS 100 ML (IVPB) BAG IV ONE
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
[2020-12-24 08:10] LABS: BASOPHILS # (AUTO) 0.1 10^3/uL (0.0-0.1); BASOPHILS % (AUTO) 1 % (0-10); EOSINOPHILS # (AUTO) 0.4 10^3/uL (0.0-0.3); EOSINOPHILS % (AUTO) 3 % (0-10); HEMATOCRIT 38 % (35-52); HEMOGLOBIN 12.1 g/dL (11.5-16.0); LYMPHOCYTES # (AUTO) 3.1 10^3/uL (1.0-4.0); LYMPHOCYTES % (AUTO) 28 % (12-44); MEAN CORPUSCULAR HEMOGLOBIN 30 pg (25-34); MEAN CORPUSCULAR HGB CONC 32 g/dL (32-36); MEAN CORPUSCULAR VOLUME 93 fL (80-99); MEAN PLATELET VOLUME 10.1 fL (9.0-12.2); MONOCYTES # (AUTO) 0.7 10^3/uL (0.0-1.0); MONOCYTES % (AUTO) 7 % (0-12); NEUTROPHILS # (AUTO) 6.5 10^3/uL (1.8-7.8); NEUTROPHILS % (AUTO) 60 % (42-75); PLATELET COUNT 325 10^3/uL (130-400); WHITE BLOOD COUNT 10.9 10^3/uL (4.3-11.0)
[2020-12-24] MEDS ORDERED: NS IV 500 ML 500 ML IV ONE (08:15)
[2020-12-24 08:19] LABS: BILIRUBIN,URINE NEGATIVE (NEGATIVE); CLARITY,URINE CLEAR; COLOR,URINE YELLOW; GLUCOSE, URINE (UA) NEGATIVE (NEGATIVE); KETONES,URINE NEGATIVE (NEGATIVE); LEUKOCYTE ESTERASE ,URINE NEGATIVE (NEGATIVE); NITRITE,URINE NEGATIVE (NEGATIVE); PROTEIN,URINE NEGATIVE (NEGATIVE)
[2020-12-24 08:24] LABS: ALBUMIN 4.1 GM/DL (3.2-4.5); CHLORIDE 101 MMOL/L (98-107); POTASSIUM 3.5 MMOL/L (3.6-5.0); SODIUM 137 MMOL/L (135-145)
[2020-12-24 08:26] LABS: GLUCOSE 123 MG/DL (70-105)
[2020-12-24 08:27] LABS: TOTAL PROTEIN 6.5 GM/DL (6.4-8.2)
[2020-12-24 08:28] LABS: AMORPHOUS SEDIMENT,UR FEW AMOR URATES /LPF; BACTERIA,URINE NEGATIVE /HPF
[2020-12-24 08:28] LABS: BILIRUBIN,TOTAL 0.7 MG/DL (0.1-1.0); CARBON DIOXIDE 24 MMOL/L (21-32)
[2020-12-24 08:30] LABS: ALKALINE PHOSPHATASE 68 U/L (40-136); GFR ESTIMATED 61
[2020-12-24 08:31] LABS: BUN/CREATININE RATIO 19
[2020-12-24 08:33] LABS: ALANINE AMINOTRANSFERASE 16 U/L (0-55); MAGNESIUM 1.8 MG/DL (1.6-2.4)
--- NOTE | 2020-12-24 09:21 | Diagnostic Imaging Report ---
Clinical Indication: Patient woke up this morning with low blood pressure and dizziness. Daughter states patient's sister just . Exam: Portable chest x-ray upright view. Comparisons: Chest x-ray dated 12/21/2019. Findings: Lungs/pleura: There is interval mild discoid atelectasis involving the left lung base and right lower lung field region. There is no definite lung infiltrate. There is no pneumothorax. There is no pleural effusion. Mediastinum: Unremarkable. Pulmonary vasculature: Unremarkable. Heart: Unremarkable. Bones/extrathoracic soft tissue: There are degenerative spurs involving the right shoulder region. Impression: Interval development of mild bibasilar atelectasis. There is no definite lung infiltrate seen. Dictated by: Dictated on workstation # [id number]
[2020-12-24 09:54] VITALS: BP 135/75
== END 2020-12-24 09:54 | disposition home or self-care (01) ==
LOC: EDUNIT# 07:43 → ER 07:44
DX: R42 Dizziness and giddiness (principal); E86.0 Dehydration; J44.9 Chronic obstructive pulmonary disease, unspecified; I10 Essential (primary) hypertension; K21.9 Gastro-esophageal reflux disease without esophagitis; E11.9 Type 2 diabetes mellitus without complications; E78.00 Pure hypercholesterolemia, unspecified; I25.10 Atherosclerotic heart disease of native coronary artery without angina pectoris; Z79.899 Other long term (current) drug therapy; Z79.82 Long term (current) use of aspirin
CPT/HCPCS: 36415; 71045; 80053; 81000; 83735; 84484; 85025; 86141; 93005

== ENCOUNTER → 2021-02-02 | Outpatient (CLI) | payer MEDICARE, MEDICAID ==
[~2021-02-02] MED LIST changes: -CITA10TA7 PO; +CITA10TA9 PO; +CYCL10TA25 PO; -CYCL10TA9 PO; +MONT-40 PO; -MONT10TA32 PO
== END ==
LOC: CARD 13:00
PROVIDERS: ATTEND Physician Assistant
DX: I11.9 Hypertensive heart disease without heart failure (principal)
CPT/HCPCS: 93306

== ENCOUNTER 2021-02-07 10:27 | Outpatient (CLI) | payer MEDICARE, MEDICAID ==
[~2021-02-07] VITALS: Ht 157.5 cm; Wt 72.0 kg
[2021-02-07] MEDS ORDERED: ATOR40TA70 PO (11:07)
[2021-02-07] MEDS ORDERED: LISI20TA26 PO (11:07)
[2021-02-07] MEDS ORDERED: LORA10TA7 PO (11:07)
[2021-02-07] MEDS ORDERED: FAMO20TA3 PO (11:07)
[2021-02-07] MEDS ORDERED: CALC-962 PO (11:07)
[2021-02-07] MEDS ORDERED: AMLO-250 PO (11:07)
[2021-02-07] MEDS ORDERED: HYDR25TA4 PO (11:07)
[2021-02-07] MEDS ORDERED: IBUP-1773 PO (11:07)
[2021-02-07] MEDS ORDERED: CHOL-34 PO (11:07)
[2021-02-07] MEDS ORDERED: METH-732 PO (11:07)
== END 2021-02-07 11:11 | disposition home or self-care (01) ==
LOC: PREOP 10:27
PROVIDERS: ATTEND Specialist
DX: Z01.818 Encounter for other preprocedural examination (principal)

== ENCOUNTER 2021-02-09 09:50 | Day surgery (SDC) | payer MEDICARE, MEDICAID ==
[~2021-02-09] VITALS: Ht 160 cm; Wt 72.0 kg
[~2021-02-09 09:50] MED LIST changes: +AMLO-250 PO; +ATOR40TA70 PO; +CALC-962 PO; +CHOL-34 PO; +FAMO20TA3 PO; +HYDR25TA4 PO; +METH-732 PO
[2021-02-09] MEDS ORDERED: LIDOCAINE PF 1% 2 ML VIAL IR PRN (10:15)
[2021-02-09] MEDS ORDERED: POVIDONE (BETADINE) OPHTH SOLN 5% 30 ML OP ONE (10:15)
[2021-02-09] MEDS ORDERED: MOXIFLOXACIN OPHTH SOLN 5 MG/ML 0.3 ML SYRINGE OP ONE (10:15)
[2021-02-09] MEDS ORDERED: TIMOLOL MALEATE 0.5% 5 ML (TIMOPTIC) BTL OU PRN (10:15)
[2021-02-09] MEDS: TETRACAINE 0.5% OPHTH SOLN 4 ML BTL (SINGLE DOSE ONLY) OU PRN ×4 (10:20→10:46)
[2021-02-09] MEDS: TROPICAMIDE 1% OPH SOLN (MYDRIACYL) 15 ML BTL OP SCH ×3 (10:28→10:46)
[2021-02-09] MEDS: PHENYLEPHRINE 10% OPHTH (NEO-SYN) 5 ML BTL OU SCH ×3 (10:28→10:46)
[2021-02-09 10:30] VITALS: BP_SYST 135; BP_SYST 99; BP_DIAS 75
[2021-02-09] MEDS ORDERED: MIDAZOLAM 2 MG/2 ML (VERSED) VIAL ONE (11:11)
[2021-02-09] MEDS ORDERED: acetaZOLAMIDE ER 500 MG CAP (DIAMOX SEQUELS) PO ONE (11:30)
--- NOTE | 2021-02-09 11:32 | Ophthalmologist Pre-Op Note ---
Pre-Operative Progress Note H&P Reviewed The H&P was reviewed, patient examined and no changes noted. Date H&P Reviewed: Feb 09, 2021 Time H&P Reviewed: 11:32 Pre-Op Dx Cataract, Right Eye LEATHA BRINK MD Feb 09, 2021 11:32
--- NOTE | 2021-02-09 11:58 | Ophthalmology Operative Report ---
Cataract removal/placement IOL PREOPERATIVE DIAGNOSIS: Cataract Right Eye POSTOPERATIVE DIAGNOSIS: Cataract Right Eye PROCEDURE: Cataract removal and placement of posterior chamber implant, right eye SURGEON: Blu Brink ANESTHESIA: Topical with sedation COMPLICATIONS: None ESTIMATED BLOOD LOSS: Minimal DESCRIPTION OF PROCEDURE: After proper informed consent was obtained, the patient, a 75 female, was taken to the Operating Room and the right eye was anesthetized with tetracaine. The right eye was then prepped and draped in the usual manner. A wire lid speculum was placed. A paracentesis was made at the left hand position. Preservative free lidocaine was injected into the anterior chamber followed by viscoelastic. A clear corneal incision was made in the temporal position. A capsulorrhexis was preformed and the central nuclear and cortical material were removed. The posterior capsule was polished and Sebastian 16.5 AU00T0 IOL was placed into the capsular bag. The residual viscoelastic was aspirated and balanced saline solution was injected into the anterior chamber. Moxifloxacin was injected into the anterior chamber. The wound was checked and found to be water tight. The patient tolerated the procedure well without complications. BLU BRINK MD Feb 09, 2021 11:58
[2021-02-09 12:05] VITALS: BP 121/71
--- NOTE | 2021-02-09 13:13 | Anesthesia-General Post-Op ---
MAC Patient Condition Mental Status/LOC: Same as Preop Cardiovascular: Satisfactory Nausea/Vomiting: Absent Respiratory: Satisfactory Pain: Controlled Complications: Absent Post Op Complications Complications None Follow Up Care/Instructions Patient Instructions None needed. Anesthesiology Discharge Order Discharge Order Patient is doing well, no complaints, stable vital signs, no apparent adverse anesthesia problems. No complications reported per nursing. MELISA MEAD CRNA Feb 09, 2021 13:13
== END 2021-02-09 12:07 ==
LOC: SDC 09:50
PROVIDERS: ATTEND Specialist
DX: E11.36 Type 2 diabetes mellitus with diabetic cataract (principal); H25.11 Age-related nuclear cataract, right eye; I10 Essential (primary) hypertension; I25.119 Atherosclerotic heart disease of native coronary artery with unspecified angina pectoris; J44.9 Chronic obstructive pulmonary disease, unspecified

== ENCOUNTER 2021-03-02 06:30 | Day surgery (SDC) | payer MEDICARE, MEDICAID ==
[~2021-03-02] VITALS: Ht 160 cm; Wt 72.0 kg
[2021-03-02 06:45] VITALS: BP 137/74
[2021-03-02] MEDS ORDERED: LIDOCAINE PF 1% 2 ML VIAL IR PRN (06:45)
[2021-03-02] MEDS: TETRACAINE 0.5% OPHTH SOLN 4 ML BTL (SINGLE DOSE ONLY) OU PRN ×4 (06:45→07:01)
[2021-03-02] MEDS ORDERED: POVIDONE (BETADINE) OPHTH SOLN 5% 30 ML OP ONE (06:45)
[2021-03-02] MEDS ORDERED: MOXIFLOXACIN OPHTH SOLN 5 MG/ML 0.3 ML SYRINGE OP ONE (06:45)
[2021-03-02] MEDS ORDERED: TIMOLOL MALEATE 0.5% 5 ML (TIMOPTIC) BTL OU PRN (06:45)
[2021-03-02] MEDS: PHENYLEPHRINE 10% OPHTH (NEO-SYN) 5 ML BTL OU SCH ×3 (06:51→07:01)
[2021-03-02] MEDS: TROPICAMIDE 1% OPH SOLN (MYDRIACYL) 15 ML BTL OP SCH ×3 (06:51→07:01)
[2021-03-02] MEDS ORDERED: MIDAZOLAM 2 MG/2 ML (VERSED) VIAL ONE (07:48)
[2021-03-02] MEDS ORDERED: acetaZOLAMIDE ER 500 MG CAP (DIAMOX SEQUELS) PO ONE (08:00)
--- NOTE | 2021-03-02 08:06 | Ophthalmologist Pre-Op Note ---
Pre-Operative Progress Note H&P Reviewed The H&P was reviewed, patient examined and no changes noted. Date H&P Reviewed: Mar 02, 2021 Time H&P Reviewed: 07:45 Pre-Op Dx Cataract, Left Eye LEATHA BRINK MD Mar 02, 2021 08:06
--- NOTE | 2021-03-02 08:06 | Ophthalmology Operative Report ---
Cataract removal/placement IOL PREOPERATIVE DIAGNOSIS: Cataract Left Eye POSTOPERATIVE DIAGNOSIS: Cataract Left Eye PROCEDURE: Cataract removal and placement of posterior chamber implant, left eye SURGEON: Blu Brink ANESTHESIA: Topical with sedation COMPLICATIONS: None ESTIMATED BLOOD LOSS: Minimal DESCRIPTION OF PROCEDURE: After proper informed consent was obtained, the patient, a 75 female, was taken to the Operating Room and the left eye was anesthetized with tetracaine. The left eye was then prepped and draped in the usual manner. A wire lid speculum was placed. A paracentesis was made at the left hand position. Preservative free lidocaine was injected into the anterior chamber followed by viscoelastic. A clear corneal incision was made in the temporal position. A capsulorrhexis was preformed and the central nuclear and cortical material were removed. The posterior capsule was polished and an Sebastian 18.0 AU00T0 was placed into the capsular bag. The residual viscoelastic was aspirated and balanced saline solution was injected into the anterior chamber. Moxifloxacin was injected into the anterior chamber. The wound was checked and found to be water tight. The patient tolerated the procedure well without complications. BLU BRINK MD Mar 02, 2021 08:06
[2021-03-02 08:15] VITALS: BP 139/82
--- NOTE | 2021-03-02 11:31 | Anesthesia-General Post-Op ---
MAC Patient Condition Mental Status/LOC: Same as Preop Cardiovascular: Satisfactory Nausea/Vomiting: Absent Respiratory: Satisfactory Pain: Controlled Complications: Absent Post Op Complications Complications None Follow Up Care/Instructions Patient Instructions None needed. Anesthesiology Discharge Order Discharge Order Patient is doing well, no complaints, stable vital signs, no apparent adverse anesthesia problems. No complications reported per nursing. TRISTON URRUTIA CRNA Mar 02, 2021 11:31
== END 2021-03-02 08:17 ==
LOC: SDC 06:30
PROVIDERS: ATTEND Specialist
DX: H25.12 Age-related nuclear cataract, left eye (principal); E11.36 Type 2 diabetes mellitus with diabetic cataract; K21.9 Gastro-esophageal reflux disease without esophagitis; J44.9 Chronic obstructive pulmonary disease, unspecified; I11.9 Hypertensive heart disease without heart failure; I25.119 Atherosclerotic heart disease of native coronary artery with unspecified angina pectoris; E78.5 Hyperlipidemia, unspecified; F41.9 Anxiety disorder, unspecified; F32.A Depression, unspecified; Z83.3 Family history of diabetes mellitus

== ENCOUNTER → 2021-03-21 | Outpatient (CLI) | payer MEDICARE, MEDICAID ==
[~2021-03-21] VITALS: Ht 157 cm; Wt 75.0 kg
[~2021-03-21] MED LIST changes: +CATHETER FLUSH 10 ML SYR IV PRN; +REGADENOSON 0.4 MG/5 ML SYR (LEXISCAN) IV ONE
[2021-03-21 09:06] VITALS: BP 129/65
--- NOTE | 2021-03-21 12:38 | Cardiology Stress Test Report ---
Stress Test Report Date of Procedure/Referring: Date of Procedure: Mar 21, 2021 Janeth Vaca Admitting Physician Gwendolyn Carter MD Indications: CP Baseline Heart Rate: 67 Baseline Blood Pressure: Blood Pressure Systolic: 129 Blood Pressure Diastolic: 65 Baseline Vitals Vital Signs Date Time Temp Pulse Resp B/P (MAP) Pulse Ox O2 Delivery O2 Flow Rate FiO2 03/21/21 09:06 81 129/65 (86) 96 Room Air Baseline EKG: Baseline EKG: NSR Summary After explaining the procedure to the patient, she signed a consent and then brought to the stress nuclear laboratory. Patient received 0.4 mg Lexiscan for stress test, ECG, heart rate and blood pressure were monitored continuously. Resting and stress dose of radio tracer were injected, imaging was acquired and reviewed in short axis, horizontal long axis and vertical long axis views. TID: 1.09 SSS: 8 SDS: 8 EF: 83 1. Patient tolerated Lexiscan well 2. Dense breast attenuation with mild decrease uptake involving the mid to apical anterolateral and inferolateral wall most probably due to breast attenuation. No significant ischemia was noted 3. Normal left ventricular size, EF 83% EFREM VALENTIN MD Mar 21, 2021 12:38
== END ==
LOC: CARD 08:15
PROVIDERS: ATTEND Physician Assistant
DX: R07.9 Chest pain, unspecified (principal); I10 Essential (primary) hypertension
CPT/HCPCS: 78452; 93017

== ENCOUNTER 2021-07-13 19:49 | Outpatient (CLI) | payer MEDICARE, MEDICAID ==
[~2021-07-13 19:49] MED LIST changes: -CATHETER FLUSH 10 ML SYR IV PRN; -REGADENOSON 0.4 MG/5 ML SYR (LEXISCAN) IV ONE
== END 2021-07-14 06:20 | disposition home or self-care (01) ==
LOC: SLEEP 19:49
PROVIDERS: ATTEND Family Medicine
DX: R06.81 Apnea, not elsewhere classified (principal)
CPT/HCPCS: 95811

== ENCOUNTER → 2021-08-21 | Outpatient (CLI) | payer MEDICARE, MEDICAID | LOC: CARD 13:49 | PROVIDERS: ATTEND Physician Assistant | DX: I11.9 Hypertensive heart disease without heart failure (principal) | CPT/HCPCS: 93306 ==

== ENCOUNTER → 2021-09-10 | Outpatient (CLI) | payer MEDICARE, MEDICAID ==
[~2021-09-10] MED LIST changes: +CATHETER FLUSH 10 ML SYR IVP PRN; +REGADENOSON 0.4 MG/5 ML SYR (LEXISCAN) IV ONE
[2021-09-10 09:19] VITALS: BP 110/59
--- NOTE | 2021-09-12 10:42 | Cardiology Stress Test Report ---
Stress Test Report Date of Procedure/Referring: Date of Procedure: Sep 10, 2021 PCP Isabel Carter MD Admitting Physician Admitting Physician: Attending Physician: Janeth Huang Indications: HTN Baseline Heart Rate: 52 Baseline Blood Pressure: Blood Pressure Systolic: 110 Blood Pressure Diastolic: 59 Baseline Vitals Vital Signs Date Time Temp Pulse Resp B/P (MAP) Pulse Ox O2 Delivery O2 Flow Rate FiO2 09/10/21 09:19 51 110/59 (76) 95 Baseline EKG: Baseline EKG: NSR Summary After explaining the procedure to the patient, she signed a consent and then brought to the stress nuclear laboratory. Patient received 0.4 mg Lexiscan for stress test, ECG, heart rate and blood pressure were monitored continuously. Resting and stress dose of radio tracer were injected, imaging was acquired and reviewed in short axis, horizontal long axis and vertical long axis views. TID: 0.95 SSS: 4 SDS: 4 EF: 72 1. Patient tolerated Lexiscan well 2. Breast attenuation with typical female pattern, no significant ischemia or infarction on SPECT images 3. Normal left ventricular size, ejection fraction 72% Copy Copies To 1: ISABEL CARTER MD Copies To 2: [facility]/EFREM AUSTIN MD Sep 12, 2021 10:42
== END ==
LOC: CARD 08:15
PROVIDERS: ATTEND Physician Assistant
DX: I10 Essential (primary) hypertension (principal)
CPT/HCPCS: 78452; 93017

== ENCOUNTER 2021-09-16 13:12 | Emergency (ER) | payer MEDICARE, MEDICAID ==
[~2021-09-16] VITALS: Ht 157.5 cm; Wt 72.6 kg
[~2021-09-16 13:12] MED LIST changes: -CATHETER FLUSH 10 ML SYR IVP PRN; -REGADENOSON 0.4 MG/5 ML SYR (LEXISCAN) IV ONE
[2021-09-16 13:18] VITALS: BP 125/85
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
--- NOTE | 2021-09-16 13:42 | Diagnostic Imaging Report ---
INDICATION: Fall, pain. COMPARISON: None available. TECHNIQUE: Three radiographs of the left wrist dated 09/16/2021. FINDINGS: No acute fracture or dislocation. No destructive osseous process. Widening of the scapholunate interval measuring near 5 mm. Otherwise, carpal alignment is well-maintained. No suspicious radiopaque foreign body. Minimal scattered degenerative changes, greatest involving the 1st CMC joint. No suspicious radiopaque foreign body. IMPRESSION: Widening of the scapholunate interval is consistent with age indeterminate injury to the scapholunate ligament. No acute fracture. Dictated by: Dictated on workstation # [id number]
== END 2021-09-16 13:50 | disposition home or self-care (01) ==
LOC: EDUNIT# 13:12 → ER 13:13
DX: S63.502A Unspecified sprain of left wrist, initial encounter (principal); W01.0XXA Fall on same level from slipping, tripping and stumbling without subsequent striking against object, initial encounter; Y92.009 Unspecified place in unspecified non-institutional (private) residence as the place of occurrence of the external cause
CPT/HCPCS: 73110

== ENCOUNTER → 2021-10-17 | Outpatient (CLI) | payer MEDICARE, MEDICAID ==
[~2021-10-17] MED LIST changes: +GADOTERATE 0.5 MMOL/ML (CLARISCAN) 20 ML VIAL IV ONE
--- NOTE | 2021-10-17 13:48 | Diagnostic Imaging Report ---
PROCEDURE: MRI lumbar spine with and without contrast. TECHNIQUE: Multiplanar, multisequence MRI of the lumbar spine was performed with and without contrast. INDICATION: Possible tumor along the spine. Prior lumbar surgery. EXAMINATION: Lumbar spine MRI with and without contrast 10/17/[address] cervical and thoracic spine from 03/23/2020 FINDINGS: On prior CT of the thoracic spine, abnormality is seen at the T8 level which is not included on this examination. There is grade 1 retrolisthesis of L1 on L2 and L2 on L3. Vertebral body heights maintained. Within the visualized lower thoracic spine, mild wedge compression deformities noted chronic in appearance specifically at T11 and T12. The visualized cord is unremarkable with the tip of the conus unremarkable in appearance and location. L1-L2: There is intervertebral disc space narrowing and disc desiccation. There is bilateral facet and ligamentum flavum hypertrophy. There is a broad-based bulging disc with secondary dgts-ap-eflcvoxo central stenosis. There is moderate left and severe right neural foraminal narrowing. L2-L3: There is intervertebral disc space narrowing and disc desiccation. There is bilateral facet and ligamentum flavum hypertrophy. There is a mild broad-based bulging disc. There is secondary moderate central stenosis. There is moderate bilateral neural foraminal narrowing. L3-L4: There is minimal broad-based bulging disc material. There is bilateral facet hypertrophy. There is no significant central stenosis. There is caxb-st-xlcjfedr bilateral neural foraminal narrowing. L4-L5: There is a broad-based bulging disc left paracentral containing an annular tear. There is bilateral facet and ligamentum flavum hypertrophy. There is no significant central stenosis. There is mild bilateral neural foraminal narrowing. L5-S1: There is intervertebral disc space narrowing and disc desiccation. There is bilateral facet and ligamentum flavum hypertrophy. There is a focal central disc protrusion. No significant central stenosis is seen. Minimal narrowing of the left lateral recess is noted. There is moderate to severe left neural foraminal stenosis. Moderate narrowing is noted on the right. Postcontrast imaging demonstrates minimal enhancement along the endplates at T11-T12 anteriorly with similar findings noted at the anterior endplates at the L1-L2. This appears to be associated with Modic type degenerative changes. No suspicious enhancing lesions appreciated. The visualized intra-abdominal structures unremarkable for acute abnormality. Tiny cystic lesion right kidney simple in appearance. IMPRESSION: 1. Multilevel diffuse degenerative findings within the visualized thoracic and lumbar spine with areas of moderate to severe neural foraminal stenosis as detailed above. No significant central narrowing appreciated 2. No suspicious masses seen on postcontrast imaging. Per history, there is a known lesion at the thoracic spine. If further characterization is desired, dedicated MRI with and without contrast of the thoracic spine recommended. Dictated by: Dictated on workstation # [id number]
== END ==
LOC: RAD 11:40
PROVIDERS: ATTEND Neurological Surgery
DX: M47.815 Spondylosis without myelopathy or radiculopathy, thoracolumbar region (principal); G95.9 Disease of spinal cord, unspecified; M48.07 Spinal stenosis, lumbosacral region; M47.817 Spondylosis without myelopathy or radiculopathy, lumbosacral region; D49.7 Neoplasm of unspecified behavior of endocrine glands and other parts of nervous system
CPT/HCPCS: 72158

== ENCOUNTER 2022-06-12 18:03 | Observation (INO) | payer MEDICARE, MEDICAID ==
[~2022-06-12] VITALS: Ht 157.4 cm; Wt 81.6 kg
[~2022-06-12 18:03] MED LIST changes: +ALBU8.5H6 IH; -GADOTERATE 0.5 MMOL/ML (CLARISCAN) 20 ML VIAL IV ONE; -RT-ALBUINH IH
[2022-06-12 18:42] LABS: BASOPHILS # (AUTO) 0.1 10^3/uL (0.0-0.1); BASOPHILS % (AUTO) 1 % (0-10); EOSINOPHILS # (AUTO) 0.2 10^3/uL (0.0-0.3); EOSINOPHILS % (AUTO) 2 % (0-10); HEMATOCRIT 36 % (35-52); HEMOGLOBIN 12.1 g/dL (11.5-16.0); LYMPHOCYTES # (AUTO) 3.7 10^3/uL (1.0-4.0); LYMPHOCYTES % (AUTO) 31 % (12-44); MEAN CORPUSCULAR HEMOGLOBIN 31 pg (25-34); MEAN CORPUSCULAR HGB CONC 34 g/dL (32-36); MEAN CORPUSCULAR VOLUME 90 fL (80-99); MEAN PLATELET VOLUME 9.9 fL (9.0-12.2); MONOCYTES # (AUTO) 0.9 10^3/uL (0.0-1.0); MONOCYTES % (AUTO) 7 % (0-12); NEUTROPHILS # (AUTO) 7.1 10^3/uL (1.8-7.8); NEUTROPHILS % (AUTO) 59 % (42-75); PLATELET COUNT 289 10^3/uL (130-400); WHITE BLOOD COUNT 12.1 10^3/uL (4.3-11.0)
--- NOTE | 2022-06-12 18:53 | Diagnostic Imaging Report ---
PROCEDURE: CT head wo r/o stroke. TECHNIQUE: Multiple contiguous axial images were obtained through the brain without the use of intravenous contrast. Auto Exposure Controls were utilized during the CT exam to meet ALARA standards for radiation dose reduction. INDICATION: Dizziness and headache The ventricles are normal in size, shape and position. There are no masses or hemorrhages. There are no extra-axial fluid collections. IMPRESSION: Negative CT head Dictated by: Dictated on workstation # [id number]
[2022-06-12 18:54] LABS: INR 0.9 (0.8-1.4); PROTHROMBIN TIME PATIENT 12.5 SEC (12.2-14.7)
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
[2022-06-12 19:00] LABS: ALANINE AMINOTRANSFERASE 18 U/L (0-55); ALBUMIN 3.9 GM/DL (3.2-4.5); ALKALINE PHOSPHATASE 69 U/L (40-136); BILIRUBIN,TOTAL 0.4 MG/DL (0.1-1.0); BUN/CREATININE RATIO 13; CALCIUM 9.1 MG/DL (8.5-10.1); CARBON DIOXIDE 20 MMOL/L (21-32); CHLORIDE 99 MMOL/L (98-107); CREATININE SERUM 0.94 MG/DL (0.60-1.30); GFR ESTIMATED 64; GLUCOSE 121 MG/DL (70-105); MAGNESIUM 1.7 MG/DL (1.6-2.4); POTASSIUM 3.4 MMOL/L (3.6-5.0); SODIUM 133 MMOL/L (135-145); TOTAL PROTEIN 6.7 GM/DL (6.4-8.2)
--- NOTE | 2022-06-12 19:04 | Diagnostic Imaging Report ---
INDICATION: Chest pain. EXAMINATION: Portable chest at 6:56 PM. FINDINGS: Heart size and pulmonary vascularity are normal. Lungs are clear. There is no effusion or pneumothorax. IMPRESSION: Negative chest. Dictated by: Dictated on workstation # [id number]
[2022-06-12] MEDS ORDERED: SCOPOLAMINE 1.5 MG (TRANSDERM-SCOP) PATCH TD ONE (19:15)
[2022-06-12] MEDS ORDERED: LACTATED RINGERS 1,000 ML IV ONE (19:15)
[2022-06-12] MEDS ORDERED: MECLIZINE 25 MG (ANTIVERT) TAB PO ONE (19:15)
[2022-06-12] MEDS ORDERED: ACETAMINOPHEN 500 MG TAB (TYLENOL) PO ONE (19:15)
[2022-06-12 19:20] LABS: TSH (THYROID ANALYZER) 3.97 UIU/ML (0.35-4.94)
[2022-06-12] MEDS ORDERED: NS 100 ML (IVPB) BAG IV ONE (19:30)
[2022-06-12] MEDS ORDERED: IOHEXOL 350 MG/ML 100 ML (OMNIPAQUE 350) VIAL IV ONE (19:30)
--- NOTE | 2022-06-12 19:58 | Diagnostic Imaging Report ---
PROCEDURE: CT angiography of the head and CT angiography of the neck with and without contrast. TECHNIQUE: Contiguous noncontrast images were obtained from the skull base through the vertex. After intravenous contrast administration, helical CT angiography of the neck was performed. Source data was reformatted into 3D MIP projections. Delayed post contrast acquisition was also obtained. Auto Exposure Controls were utilized during the CT exam to meet ALARA standards for radiation dose reduction. INDICATION: Dizziness and headache. COMPARISON: CT head from same day. FINDINGS: CTA NECK: Aorta: Aortic arch is normal, with standard three vessel branching pattern. Anterior Circulation: The origin of the bilateral common carotid arteries are patent. No stenosis of the common carotid arteries in the neck. No significant stenosis of the internal carotid arteries per NASCET criteria. The cervical segments of the bilateral ICAs are patent, and the right has a retropharyngeal course. The proximal external carotid arteries are patent and without significant stenosis. Posterior Circulation: Origins of the right vertebral artery is normal. Left vertebral artery is likely occluded at its origin. String like opacification of the proximal extraosseous and proximal 3rd of the intraosseous segment of the left vertebral artery may be due to dissection. Distal intraosseous segment from C5 to the skull base is normal in caliber and opacifies normally. Right vertebral artery opacifies normally without dissection. Non-vascular: No cervical lymphadenopathy. The airway is patent. No evidence of mucosal-based mass lesion in the pharynx. Thyroid is normal. Salivary glands are normal. No concerning lesion in the cervical spine. CTA HEAD: Anterior Circulation: The distal internal carotid arteries are patent. The bilateral M1 and M2 segments of the middle cerebral arteries are patent and without stenosis. The bilateral M3 and M4 segments are symmetric in size and number. The anterior cerebral arteries are patent and without stenosis. Anterior communicating artery is patent. No saccular aneurysm in the anterior circulation. Posterior Circulation: The bilateral intracranial segments of the vertebral arteries are patent. The basilar artery is patent and without stenosis. The posterior cerebral arteries are patent. Bilateral posterior communicating arteries are patent and without aneurysm. No saccular aneurysm in the posterior circulation. Post Contrast Head: No pathologic enhancement on delayed post-contrast enhancement. IMPRESSION: 1. 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 This raises the possibility of dissection as the vertebral artery cranial to this aspect is normal in caliber. 2. Right vertebral artery is patent. 3. No intracranial large vessel occlusion or saccular aneurysm. Dictated by: Dictated on workstation # [id number]
[2022-06-12 20:31] LABS: BILIRUBIN,URINE NEGATIVE (NEGATIVE); CLARITY,URINE CLEAR; COLOR,URINE YELLOW; GLUCOSE, URINE (UA) NEGATIVE (NEGATIVE); KETONES,URINE NEGATIVE (NEGATIVE); LEUKOCYTE ESTERASE ,URINE NEGATIVE (NEGATIVE); NITRITE,URINE NEGATIVE (NEGATIVE); PROTEIN,URINE NEGATIVE (NEGATIVE)
[2022-06-12 20:39] LABS: BACTERIA,URINE LARGE /HPF; SQUAMOUS EPITHELIAL CELL,UR 25-50 /HPF; WBC,URINE 25-50 /HPF
[2022-06-12] MEDS ORDERED: cefTRIAXone IV/IM 1,000 MG in NS (IVPB) 50 ML IV ONE (21:15)
[2022-06-12] MEDS ORDERED: LIDOCAINE UROJET 2% GEL 10 ML PKG TOP ONE (21:15)
[2022-06-12] MEDS ORDERED: 1/2 NS IV SOLUTION 1,000 ML IV ONE (23:27)
[2022-06-12] MEDS ORDERED: ACETAMINOPHEN 500 MG TAB (TYLENOL) PO PRN (23:45)
[2022-06-12] MEDS ORDERED: ONDANSETRON 4 MG/2 ML (SDV) Z0FRAN IV PRN (23:45)
[2022-06-12] MEDS ORDERED: fentaNYL INJ 100 MCG/2 ML AMP IV PRN (23:45)
[2022-06-13] MEDS ORDERED: MECLIZINE 25 MG (ANTIVERT) TAB PO PRN (00:15)
[2022-06-13] MEDS ORDERED: NS IV 500 ML 500 ML IV PRN (01:30)
[2022-06-13] MEDS: 1/2 NS IV SOLUTION 1,000 ML IV SCH ×3 (01:31→21:54)
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
[2022-06-13 03:56] LABS: BASOPHILS # (AUTO) 0.1 10^3/uL (0.0-0.1); BASOPHILS % (AUTO) 1 % (0-10); EOSINOPHILS # (AUTO) 0.3 10^3/uL (0.0-0.3); EOSINOPHILS % (AUTO) 3 % (0-10); HEMATOCRIT 34 % (35-52); HEMOGLOBIN 11.4 g/dL (11.5-16.0); LYMPHOCYTES # (AUTO) 2.8 10^3/uL (1.0-4.0); LYMPHOCYTES % (AUTO) 28 % (12-44); MEAN CORPUSCULAR HEMOGLOBIN 30 pg (25-34); MEAN CORPUSCULAR HGB CONC 33 g/dL (32-36); MEAN CORPUSCULAR VOLUME 90 fL (80-99); MONOCYTES # (AUTO) 0.7 10^3/uL (0.0-1.0); MONOCYTES % (AUTO) 7 % (0-12); NEUTROPHILS % (AUTO) 61 % (42-75); PLATELET COUNT 252 10^3/uL (130-400); WHITE BLOOD COUNT 9.9 10^3/uL (4.3-11.0)
[2022-06-13 04:10] LABS: ALBUMIN 3.6 GM/DL (3.2-4.5)
[2022-06-13 04:11] LABS: CALCIUM 8.8 MG/DL (8.5-10.1)
[2022-06-13 04:12] LABS: TOTAL PROTEIN 5.9 GM/DL (6.4-8.2)
[2022-06-13 04:14] LABS: BILIRUBIN,TOTAL 0.3 MG/DL (0.1-1.0)
[2022-06-13 04:15] LABS: PHOSPHORUS 3.4 MG/DL (2.3-4.7)
[2022-06-13 04:16] LABS: CREATININE SERUM 0.8 MG/DL (0.60-1.30)
[2022-06-13 04:18] LABS: MAGNESIUM 1.7 MG/DL (1.6-2.4)
[2022-06-13] MEDS: KCL 20 MEQ TAB (K-DUR) PO SCH (04:54)
[2022-06-13] MEDS: MAGNESIUM 1 GM/100 ML IVPB 100 ML IV SCH ×4 (04:54→08:34)
[2022-06-13] MEDS: inSUlin ASPART (NovoLOG) 1 UNIT/0.01 ML (CHARGE PER UNIT) SC SCH ×6 (04:54→20:58)
[2022-06-13] MEDS: POTASSIUM CL 10MEQ/50ML IVPB 50 ML IV SCH ×9 (04:54→14:52)
[2022-06-13] MEDS: ASPIRIN E.C. 81 MG (ECOTRIN) TAB PO SCH (08:15)
--- NOTE | 2022-06-13 09:19 | Consultation-Cardiology ---
HPI-Cardiology Cardiology Consultation Date of Consultation 06/13/22 Date of Admission Time Seen by Provider: 08:45 [facility] Ms. Renae is a 76-year-old female with a history of CAD status post PCI to the LAD, diabetes, hypertension, COPD, not on home O2 although recommended, hy perlipidemia, GERD who presents for evaluation of dizziness and occipital headache x1 week. Patient states that she has been experiencing symptoms for a week. She notes that she has been dizzy with an unsteady gait. She notes that it became worse on the day of admission. In that setting she decided to come in for evaluation. She denies any jeanine numbness or weakness. She denies any dysarthria dysphagia. She denies any palpitations presyncope syncope PND orthopnea. She is noted to have chronic shortness of breath and chronic chest pain. She states that she has not had to use nitroglycerin at home recently. Personal read of her EKG today demonstrates normal sinus rhythm with incomplete right bundle branch block troponins are negative. She does have a cardiac cath in February 2019 which demonstrated patent LAD stent and mild to moderate nonobstructive LAD and the left circumflex territory. As a part of her work-up she had a head CT which was negative, however she did have a CTA of the head which demonstrated high-grade stenosis, occlusion of the left vertebral artery with question of dissection. Neuroradiology and neurology of [facility] were contacted and recommended continuing antiplatelet regimen, no anticoagulation, no need for emergent intervention, MRI echo and risk factor work-up. Cardiology is now consulted to aid in evaluation. Home Medications & Allergies Allergies: Coded Allergies: naproxen (Verified Allergy, Intermediate, RASH/HIVES, 08/04/19) diphenhydramine (Verified Allergy, Mild, RASH, 08/04/19) Penicillins (Verified Allergy, Unknown, 06/12/22) Phenytoin Sodium Extended (Verified Allergy, Unknown, 08/04/19) meperidine HCl (Verified Allergy, Unknown, 08/04/19) phenytoin sodium (Verified Allergy, Unknown, 08/04/19) Home Medication List Reviewed: Yes Tylenol PM Albuterol inhaler Norvasc 5 mg p.o. daily Claritin Nitroglycerin spray Aspirin 81 mg p.o. daily Atorvastatin 40 mg p.o. nightly Symbicort (1604.5) 2 puffs INH twice daily as needed Pepcid 20 mg p.o. daily Ibuprofen 600 mg p.o. twice daily Hydrochlorothiazide 25 mg p.o. daily Lisinopril 20 mg p.o. daily Protonix 40 mg p.o. daily KNC-Wslutw-Kzzhqt Hx Patient Social History Smoking Status: Never a Smoker Type Used: Cigarettes 2nd Hand Smoke Exposure: Yes Recent Hopitalizations: No Have you traveled recently?: No Alcohol Use?: No Immunizations Up To Date Tetanus Booster (TDap): More than 5yrs Date of Pneumonia Vaccine: Nov 30, 2018 Date of Influenza Vaccine: Nov 04, 2018 Past Medical History CAD status post PCI of the LAD Diabetes Hypertension COPD, not on home O2 although recommended Hyperlipidemia GERD Status post C4-C5 fusion Family Medical History Significant Family History: No Pertinent Family Hx Family Medical Hx Reviewed and is noncontributory Review of Systems-General Review of Systems Constitutional: see HPI, dizziness EENTM: no symptoms reported Respiratory: see HPI Cardiovascular: see HPI Gastrointestinal: no symptoms reported; No abdominal pain, No diarrhea, No loss of appetite, No nausea, No vomiting Genitourinary: no symptoms reported Musculoskeletal: no symptoms reported Skin: no symptoms reported Psychiatric/Neurological: See HPI, Headache; Denies Numbness, Denies Parest hesia, Denies Seizure, Denies Tingling, Denies Tremors, Denies Weakness All Other Systems Reviewed Negative Unless Noted: Yes (Negative excepted noted.) Reviewed Test Results Reviewed Test Results Lab White blood cell count of 9.9, hematocrit of 34, platelets of 252 troponin I is negative, BNP of 33, sodium 137, potassium 3.0, chloride 102, bicarb 24, BUN 9, creatinine 0.8, LFTs within normal limit ECG Impression ECG Comment Personal read of EKG demonstrates normal sinus rhythm with incomplete right bundle branch block Physical Exam Physical Exam Vital Signs Vital Signs - First Documented 06/12/22 06/12/22 18:21 23:00 Temp 36.3 Pulse 67 Resp 18 B/P (MAP) 147/82 (103) Pulse Ox 97 O2 Delivery Room Air Capillary Refill : Less Than 3 Seconds Height, Weight, BMI Height: 5'2.00" Weight: 171lbs. 0.0oz. 77.402503cx; 33.46 BMI Method:Stated General Appearance: No Apparent Distress, WD/WN HEENT: PERRL/EOMI, TMs Normal, Pharynx Normal, Moist Mucous Membranes, Other (POOR DENTITION) Neck: Full Range of Motion, Normal Inspection, Non Tender, Supple; No Carotid Bruit, No JVD Respiratory: Normal Breath Sounds, No Accessory Muscle Use, No Respiratory Distress Cardiovascular: Regular Rate, Rhythm, No Edema, No JVD, No Murmur, Normal Peripheral Pulses Gastrointestinal: Non Tender, Soft Back: No CVA Tenderness Extremity: Normal Capillary Refill, Normal Inspection, Normal Range of Motion, Non Tender, No Calf Tenderness, No Pedal Edema Neurologic/Psychiatric: Alert, Oriented x3, No Motor/Sensory Deficits, Normal 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 OTHERWISE ALL OF HER MOTOR SKILLS ARE INTACT. SHE IS HAS EQUAL AND NORMAL STRENGTH IN ALL EXTREMITIES, SHE HAS NORMAL FINGER TO NOSE AND HEEL TO MUIR COORDINATION. ) Reflexes: 2+ Bicep (R), 2+ Bicep (L), 2+ Knee (R), 2+ Knee (L) Skin: Normal Color, Warm/Dry Comments Gen: No acute distress; A+O x 3, sitting comfortably in the bed Neck: soft supple, no cervical LAD Lungs: CTA-bilaterally; breath sounds diminished bilaterally but no jeanine wheezing, rales or rhonchi CV: nl s1/s2, no m-g-r, RRR Abd: soft nt nd, no HSM, + BS Ext: wwp, no c-c-e; 2+ DP and femoral pulses skin: no lesions rashes or ecchymoses are noted. A/P-Cardiology Assessment/Plan Ms. Renae is a 76-year-old female with a history of CAD status post PCI to the LAD, diabetes, hypertension, COPD, not on home O2 although recommended, hyperlipidemia, GERD who presents for evaluation of dizziness and occipital h eadache x1 week, found to have a left vertebral artery occlusion. ## Left vertebral artery occlusion: Neurology has been consulted and recommended a cardiac work-up with an echocardiogram and risk factor modification. - Restart home antihypertensives at half dose - Continue aspirin 325 mg p.o. daily for now - Echocardiogram with bubble study - Brain MRI - Follow-up carotid ultrasound ## HTN: BPs 90s to 120s -Restart antihypertensives at half dose, Norvasc 2.5, lisinopril 10, hold on hydrochlorothiazide for now ## risk factor modification: -Check A1c and fasting lipid panel ## hypokalemia: K 3.0 - supp K ## Dispo: -Once all information obtained, follow-up with neurology to figure out next steps OVIDIO BARON MD Jun 13, 2022 09:19
[2022-06-13] MEDS ORDERED: KCL 20 MEQ TAB (K-DUR) PO ONE (09:30)
[2022-06-13] MEDS ORDERED: ONDANSETRON 4 MG/2 ML (SDV) Z0FRAN IV PRN (09:45)
[2022-06-13] MEDS ORDERED: morphine INJ 4 MG/ML 1 ML (VIAL/SYRINGE) IV PRN (09:45)
[2022-06-13] MEDS ORDERED: polyethylene glycoL POWDER 17 GM (MIRALAX) PACK PO PRN (09:45)
[2022-06-13] MEDS ORDERED: CALCIUM CARBONATE 500 MG (TUMS) TAB.CHEW PO PRN (09:45)
[2022-06-13] MEDS ORDERED: ONDANSETRON 4 MG (ZOFRAN) ORAL DISSOLVE TAB PO PRN (09:45)
[2022-06-13] MEDS ORDERED: ANTACID SUSP 30 ML UDC (MYLANTA) PO PRN (09:45)
[2022-06-13] MEDS ORDERED: MILK OF MAGNESIA 400 MG/5 ML 30 ML UDC PO PRN (09:45)
[2022-06-13] MEDS ORDERED: MELATONIN 3 MG TABLET PO PRN (09:45)
[2022-06-13] MEDS ORDERED: BISACODYL 10 MG SUPP (DULCOLAX) PR PRN (09:45)
[2022-06-13] MEDS ORDERED: LACTULOSE SYRUP 10GM/15ML (ENULOSE) 30ML UDC PO PRN (09:45)
[2022-06-13] MEDS ORDERED: ACETAMINOPHEN 325 MG TABLET PO PRN (09:45)
[2022-06-13] MEDS: amLODIPine 2.5MG (NORVASC) TAB PO SCH (10:17)
[2022-06-13] MEDS: ENOXAPARIN 40 MG/0.4 ML (LOVENOX) SYR SC SCH (10:17)
[2022-06-13] MEDS: lisINopril 5 MG (PRINIVIL) TABLET PO SCH (10:17)
--- NOTE | 2022-06-13 10:57 | Diagnostic Imaging Report ---
PROCEDURE: US carotid duplex, bilateral. TECHNIQUE: Multiple real-time grayscale images were obtained over the carotid arteries in various projections, bilaterally. Additional spectral analysis and color Doppler duplex images were also obtained. INDICATION: Dizziness. FINDINGS: There are no focally elevated velocities in either internal carotid artery. The ICA/CCA ratios are within normal limits, bilaterally. There is antegrade flow in the vertebral arteries, bilaterally. Grayscale images demonstrate minimal carotid plaque, bilaterally. IMPRESSION: Minimal bilateral carotid plaque however spectral analysis shows no evidence of a hemodynamically significant stenosis in either internal carotid artery. Parameters based on the consensus panel Mahoney-Scale and Doppler ultrasound criteria published December 2002, Radiology, Volume 229. DOPPLER (peak systolic velocity M/S Right Left CCA 1.0 .99 ICA Proximal .35 .48 ICA Mid .47 .60 ICA Distal .58 .44 RATIO .56 .60 ECA .91 .63 VERT .37 .17 Dictated by: Dictated on workstation # [id number]
--- NOTE | 2022-06-13 11:30 | Physical Therapy Evaluation ---
PT Evaluation-General Medical Diagnosis Admission Date Jun 12, 2022 at 22:56 Medical Diagnosis: Dizziness/UTI Onset Date: Jun 12, 2022 Therapy Diagnosis Therapy Diagnosis: debility/weakness Height/Weight Height (Feet): 5 Height (Inches): 2.00 Weight (Pounds): 171 Weight (Ounces): 0.0 Precautions Precautions/Isolations: Fall Prevention, Standard Precautions Referral Physician: Jen Reason for Referral: Evaluation/Treatment Medical History Pertinent Medical History: CAD, COPD, DM, HTN Current History ambulated into the ER secondary to dizzy x 1 week Reviewed History: Yes Social History Home: Apartment Current Living Status: Alone (with caregivers 45 hours/week) Entry Into Home: Level Entry Prior Prior Level of Function SCALE: Activities may be completed with or without assistive devices. 4-Nsbizrkwzm-yasoesa completes the activity by him/herself with no assistance from a helper. 5-Set-up or Clean-up Assistance-helper sets up or cleans up; patient completes activity. Redford assists only prior to or following the activity. 4-Supervision or Touching Assistance-helper provides verbal cues and/or touching/steadying and/or contact guard assistance as patient completes activity. Assistance may be provided throughout the activity or intermittently. 3-Partial/Moderate Assistance-helper does LESS THAN HALF the effort. Redford lifts, holds or supports trunk or limbs, but provides less than half the effort. 2-Substantial/Maximal Assistance-helper does MORE THAN HALF the effort. Redford lifts or holds trunk or limbs and provides more than half the effort. 0-Nzrskzisa-ohuwsd does ALL the effort. Patient does none of the effort to complete the activity. Or, the assistance of 2 or more helpers is required for the patient to complete the activity. If activity was not attempted, code reason: 7-Patient Refused. 9-Not Applicable-not attempted and the patient did not perform the activity be fore the current illness, exacerbation or injury. 10-Not Attempted due to Environmental Limitations-(lack of equipment, weather restraints, etc.). 88-Not Attempted due to Medical Conditions or Safety Concerns. Bed Mobility: 4 Transfers (B,C,W/C): 4 Gait: 4 Stairs: 9 Indoor Mobility (Ambulation): Needed Some Help Prior Devices Use: Walker PT Evaluation-Current Subjective Patient and family agree to PT. Objective Patient Orientation: Person, Time Attachments: Redmond Catheter, IV ROM/Strength ROM Lower Extremities bilateral LE WF Strength Lower Extremities 3+/5 grossly bilateral LE all planes Integumentary/Posture Bowel Incontinence: No Bladder Incontinence: Redmond Cath Posture WFL Neuromuscular (Tone, Coordination, Reflexes) grossly intact Sensory Vision: Functional Hearing: Functional Transfers Lying to Sitting/Side of Bed(Q: 4 Sit to Stand (QC): 4 Chair/Rca-ye-Vxykg Xfer(QC): 4 Gait Mode of Locomotion: Walk Anticipated Mode of Locomotion: Walk Walk 10 feet (QC): 4 Walk 50 ft with 2 Turns(QC): 4 Walk 150 ft (QC): 4 Distance: 225' Gait Assistive Device: FWW Comments/Gait Description safe and functional with no deviation Balance Sitting Static: Normal Sitting Dynamic: Normal Standing Static: Normal Standing Dynamic: Normal Assessment/Needs Patient will be seen short term by skilled PT to address functional strength and mobility to ensure safe return to home, with caregivers, at maximum LOF. Rehab Potential: Fair PT Ham Stringer Goals Fdc Goals PT Fdc Goals Time Frame: Jun 22, 2022 Roll Left & Right (QC): 6 Sit to Lying (QC): 6 Lying-Sitting on Side/Bed(QC): 6 Sit to Stand (QC): 4 Chair/Ctn-pa-Ztfen Xfer(QC): 4 Toilet Transfer (QC): 4 Walk 10 feet (QC): 4 Walk 50ft with 2 Turns (QC): 4 Walk 150 ft (QC): 4 PT Plan Problem List Problem List: Activity Tolerance, Functional Strength, Safety Treatment/Plan Treatment Plan: Continue Plan of Care Treatment Plan: Bed Mobility, Education, Functional Activity Pete, Functional Strength, Gait, Therapeutic Exercise, Transfers Treatment Duration: Jun 22, 2022 Frequency: 6 times per week Estimated Hrs Per Day: .25 hour per day Patient and/or Family Agrees t: Yes Safety Risks/Education Patient Education: W/C Management Time Time In: 1025 Time Out: 1043 DATE: Jun 13, 2022 Total Billed Treatment Time: 18 Total Billed Treatment 1 visit EVModC 18 min GABRIELLA WILLIAMSON PT Jun 13, 2022 11:30
--- NOTE | 2022-06-13 11:36 | Occupational Therapy Eval ---
OT Evaluation-General/PLF Medical Diagnosis Admission Date Jun 12, 2022 at 22:56 Medical Diagnosis: Dizziness/UTI Onset Date: Jun 12, 2022 Therapy Diagnosis Therapy Diagnosis: WEAKNESS Height/Weight Height (Feet): 5 Height (Inches): 2.00 Weight (Pounds): 171 Weight (Ounces): 0.0 Precautions Precautions/Isolations: Fall Prevention, Standard Precautions Weight Bear Status Weight Bearing Restriction: Weight Bearing/Tolerated Referral Physician: Jen Referral Reason: Evaluation/Treatment Medical History Pertinent Medical History: CAD, COPD, DM, HTN Social History Home: Apartment Current Living Status: Alone (with caregivers 45 hours/week) Entry Into Home: Level Entry ADL-Prior Level of Function SCALE: Activities may be completed with or without assistive devices. 4-Mbxrygzxzh-pndjchw completes the activity by him/herself with no assistance from a helper. 5-Set-up or Clean-up Assistance-helper sets up or cleans up; patient completes activity. [place] assists only prior to or following the activity. 4-Supervision or Touching Assistance-helper provides verbal cues and/or touching/steadying and/or contact guard assistance as patient completes activity. Assistance may be provided throughout the activity or intermittently. 3-Partial/Moderate Assistance-helper does LESS THAN HALF the effort. [place] lifts, holds or supports trunk or limbs, but provides less than half the effort. 2-Substantial/Maximal Assistance-helper does MORE THAN HALF the effort. [place] lifts or holds trunk or limbs and provides more than half the effort. 8-Benyhghjh-dtloir does ALL the effort. Patient does none of the effort to complete the activity. Or, the assistance of 2 or more helpers is required for the patient to complete the activity. If activity was not attempted, code reason: 7-Patient Refused. 9-Not Applicable-not attempted and the patient did not perform the activity before the current illness, exacerbation or injury. 10-Not Attempted due to Environmental Limitations-(lack of equipment, weather restraints, etc.). 88-Not Attempted due to Medical Conditions or Safety Concerns. Self Care: Needed Some Help Functional Cognition: Needed Some Help 45 HOUR PER WEEK CARE GIVERS Drive Self: No OT Current Status Subjective RESTING IN BED AGREEABLE TO OT Mental Status/Objective Patient Orientation: Person, Place, Time, Situation Attachments: [place] Catheter, IV, Telemetry Current Glasses/Contacts: Yes Upper Extremity ROM CHRONIC rROM LIMITED TO LEFT SHOULDER Upper Extremity Strength WFLS FOR ADLS ADL-Treatment Eating (QC): 6 Oral Hygiene (QC): 5 Shower/Bathe Self (QC): 4 Upper Body Dressing (QC): 4 Lower Body Dressing (QC): 3 On/Off Footwear (QC): 3 Toileting Hygiene (QC): 3 Education OT Patient Education: Modified ADL techniques, Progress toward Goal/Update tx plan, Purpose of tx/functional activities, Reviewed precautions, Rehab process, Safety issues, Transfer techniques Teaching Recipient: Patient Teaching Methods: Demonstration Response to Teaching: Verbalize Understanding, Reinforcement Needed OT Nursing Home Goals Manager Labor Relations Goals Eating (QC): 6 Oral Hygiene (QC): 6 Toileting Hygiene (QC): 6 Shower/Bathe Self (QC): 6 Upper Body Dressing (QC): 6 Lower Body Dressing (QC): 6 On/Off Footwear (QC): 6 1=Demonstrate adherence to instructed precautions during ADL tasks. 2=Patient will verbalize/demonstrate understanding of assistive devices/modifications for ADL. 3=Patient will improve strength/tolerance for activity to enable patient to perform ADL's. OT Education/Plan Problem List/Assessment Assessment: Decreased Activ Tolerance, Impaired Self-Care Skills Discharge Recommendations Plan/Recommendations: Continue POC Treatment Plan/Plan of Care Treatment,Training & Education: Yes Patient would benefit from OT for education, treatment and training to promote independence in ADL's, mobility, safety and/or upper extremity function for ADL's. Plan of Care: ADL Retraining, Functional Mobility, Group Exercise/Act as Ind, UE Funct Exercise/Act Treatment Duration: Jun 22, 2022 Frequency: 3 times per week (3-5 TIMES PER WEEK) Estimated Hrs Per Day: .25 hour per day Agreement: Yes Rehab Potential: Fair Time Start Time: 11:25 Stop Time: 11:43 DATE: Jun 13, 2022 Total Time Billed (hr/min): 18 Billed Treatment Time EVM 18 MIN ZORAIDA NGUYEN OT Jun 13, 2022 11:35
--- NOTE | 2022-06-13 11:49 | Diagnostic Imaging Report ---
CLINICAL INDICATION: Patient with dizziness spells, possible stroke. EXAM: MRI of the brain performed without IV contrast. Sequences include axial DWI, ADC map, axial T1, axial T2, axial FLAIR, axial gradient echo, and sagittal T1. COMPARISON: CT angiogram of the head/neck dated 06/12/2022. FINDINGS: There is no evidence of acute cerebral infarct, intracranial hemorrhage, or gross mass effect. The brain parenchymal volume appears appropriate for patient's age. There are multiple focal and patchy areas of high T2 signal white matter changes involving both cerebral hemispheres and periventricular regions likely related to chronic small vessel ischemic disease and leukoaraiosis. There is normal fajardo-white matter distinction. There is no significant midline shift or herniation. The [place] vascular structures show no gross abnormality as visualized. The pituitary gland, sella, and suprasellar regions are unremarkable as visualized. There is no evidence of hydrocephalus. The basal cisterns are unremarkable. The skull, extracranial soft tissue, and orbits are unremarkable. The paranasal sinuses are unremarkable. Temporal bones show no significant abnormality. IMPRESSION: 1: There is no evidence of acute intracranial process. There is no intracranial hemorrhage. 2: There are age-related brain parenchymal changes including chronic small vessel ischemic disease and leukoaraiosis. Dictated by: Dictated on workstation # [id number]
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
[2022-06-13 13:30] VITALS: BP 133/78
[2022-06-13] MEDS ORDERED: RT-ALBUTEROL/IPRATROPIUM 3 ML (DUONEB) VIAL INH PRN (13:45)
[2022-06-13] MEDS ORDERED: GABA300C PO (15:38)
[2022-06-13] MEDS ORDERED: MONT-40 PO (15:38)
[2022-06-13] MEDS ORDERED: MULT-1060 PO (15:38)
[2022-06-13] MEDS ORDERED: FAMO20TA5 PO (15:38)
[2022-06-13] MEDS ORDERED: NEBI2.5T6 PO (15:38)
[2022-06-13] MEDS: DOCUSATE SODIUM 100 MG (COLACE) CAP PO SCH (20:57)
[2022-06-13] MEDS: SENNOSIDES 8.6 MG (SENOKOT) TAB PO SCH (20:58)
[2022-06-13] MEDS ORDERED: METHOCARBAMOL 750 MG (ROBAXIN) TAB PO PRN (21:15)
[2022-06-13] MEDS ORDERED: RT-ALBUTEROL SULF 2.5 MG/3 ML PRE-MIX VIAL IH PRN (21:15)
[2022-06-13] MEDS ORDERED: diphenhydrAMINE 25 MG TAB (BENADRYL) PO SCH (21:48)
[2022-06-13] MEDS ORDERED: ACETAMINOPHEN 500 MG TAB (TYLENOL) PO SCH (21:49)
[2022-06-14 05:01] LABS: BASOPHILS # (AUTO) 0.1 10^3/uL (0.0-0.1); BASOPHILS % (AUTO) 1 % (0-10); EOSINOPHILS # (AUTO) 0.3 10^3/uL (0.0-0.3); EOSINOPHILS % (AUTO) 4 % (0-10); HEMATOCRIT 35 % (35-52); HEMOGLOBIN 11.4 g/dL (11.5-16.0); LYMPHOCYTES # (AUTO) 2.7 10^3/uL (1.0-4.0); LYMPHOCYTES % (AUTO) 30 % (12-44); MEAN CORPUSCULAR HEMOGLOBIN 29 pg (25-34); MEAN CORPUSCULAR HGB CONC 32 g/dL (32-36); MEAN CORPUSCULAR VOLUME 91 fL (80-99); MEAN PLATELET VOLUME 9.9 fL (9.0-12.2); MONOCYTES # (AUTO) 0.6 10^3/uL (0.0-1.0); MONOCYTES % (AUTO) 7 % (0-12); NEUTROPHILS # (AUTO) 5.2 10^3/uL (1.8-7.8); NEUTROPHILS % (AUTO) 58 % (42-75); PLATELET COUNT 276 10^3/uL (130-400)
[2022-06-14 05:10] LABS: ALBUMIN 3.6 GM/DL (3.2-4.5)
[2022-06-14 05:11] LABS: CALCIUM 8.8 MG/DL (8.5-10.1)
[2022-06-14 05:14] LABS: BILIRUBIN,TOTAL 0.5 MG/DL (0.1-1.0)
[2022-06-14 05:16] LABS: CREATININE SERUM 0.77 MG/DL (0.60-1.30)
[2022-06-14 05:19] LABS: MAGNESIUM 2.2 MG/DL (1.6-2.4)
[2022-06-14] MEDS: POTASSIUM CL 10MEQ/50ML IVPB 50 ML IV SCH (05:19)
[2022-06-14] MEDS: MAGNESIUM 1 GM/100 ML IVPB 100 ML IV SCH (05:20)
[2022-06-14] MEDS: KCL 20 MEQ TAB (K-DUR) PO SCH (05:20)
[2022-06-14] MEDS: inSUlin ASPART (NovoLOG) 1 UNIT/0.01 ML (CHARGE PER UNIT) SC SCH ×2 (05:20→11:00)
[2022-06-14] MEDS: 1/2 NS IV SOLUTION 1,000 ML IV SCH ×2 (07:13→08:26)
[2022-06-14] MEDS ORDERED: CALCIUM CARB + VIT D 600 MG (CALCARB + D) TAB PO SCH (08:00)
[2022-06-14] MEDS: amLODIPine 2.5MG (NORVASC) TAB PO SCH (08:01)
[2022-06-14] MEDS: lisINopril 5 MG (PRINIVIL) TABLET PO SCH (08:16)
[2022-06-14] MEDS: DOCUSATE SODIUM 100 MG (COLACE) CAP PO SCH (08:18)
[2022-06-14] MEDS: SENNOSIDES 8.6 MG (SENOKOT) TAB PO SCH (08:18)
[2022-06-14] MEDS: ASPIRIN E.C. 81 MG (ECOTRIN) TAB PO SCH (08:18)
[2022-06-14] MEDS ORDERED: PANTOPRAZOLE 40 MG (PROTONIX) TAB PO SCH (09:00)
[2022-06-14] MEDS ORDERED: GABAPENTIN 300 MG (NEURONTIN) CAP PO SCH (09:00)
[2022-06-14] MEDS ORDERED: LORATADINE (CLARITIN) 10 MG TAB PO SCH (09:00)
[2022-06-14] MEDS ORDERED: lisINopril 20 MG (PRINIVIL) TABLET PO SCH (09:00)
[2022-06-14] MEDS ORDERED: amLODIPine 5 MG (NORVASC) TAB PO SCH (09:00)
[2022-06-14] MEDS ORDERED: MONTELUKAST 10 MG (SINGULAIR) TAB PO SCH (09:00)
[2022-06-14] MEDS ORDERED: amLODIPine 2.5MG (NORVASC) TAB PO SCH (09:00)
[2022-06-14] MEDS ORDERED: lisINopril 5 MG (PRINIVIL) TABLET PO SCH (09:00)
[2022-06-14] MEDS ORDERED: MULTIVIT W/MINERALS TAB (THERAGRAN M) PO SCH (09:00)
[2022-06-14] MEDS ORDERED: VITAMIN D3 25 MCG (1,000 UNITS) TABLET PO SCH (09:00)
[2022-06-14] MEDS: ENOXAPARIN 40 MG/0.4 ML (LOVENOX) SYR SC SCH (10:27)
--- NOTE | 2022-06-14 11:43 | Physical Therapy Daily Note ---
PT Daily Note-Current Subjective Patient agrees to PT. Daughter present. Pain Section J - Health Conditions 1. Rarely or not at all 2. Occasionally 3. Frequently 4. Almost constantly 8. Unable to answer Pain Effect on Sleep: 1 Pain Interference with Therapy: 1 Pain Interference w/Day-to-Day: 1 Mental Status Patient Orientation: Normal For Age Transfers SCALE: Activities may be completed with or without assistive devices. 9-Xeycqprpoj-vwxlpnd completes the activity by him/herself with no assistance from a helper. 5-Set-up or Clean-up Assistance-helper sets up or cleans up; patient completes activity. [place] assists only prior to or following the activity. 4-Supervision or Touching Assistance-helper provides verbal cues and/or touching/steadying and/or contact guard assistance as patient completes activity. Assistance may be provided throughout the activity or intermittently. 3-Partial/Moderate Assistance-helper does LESS THAN HALF the effort. [place] lifts, holds or supports trunk or limbs, but provides less than half the effort. 2-Substantial/Maximal Assistance-helper does MORE THAN HALF the effort. [place] lifts or holds trunk or limbs and provides more than half the effort. 8-Qzwronvgy-juvldj does ALL the effort. Patient does none of the effort to complete the activity. Or, the assistance of 2 or more helpers is required for the patient to complete the activity. If activity was not attempted, code reason: 7-Patient Refused. 9-Not Applicable-not attempted and the patient did not perform the activity before the current illness, exacerbation or injury. 10-Not Attempted due to Environmental Limitations-(lack of equipment, weather restraints, etc.). 88-Not Attempted due to Medical Conditions or Safety Concerns. Lying to Sitting/Side of Bed(Q: 6 Sit to Stand (QC): 6 Chair/Efk-et-Cphjt Xfer(QC): 6 Gait Training Distance: 300' Walk 10 feet (QC): 5 Walk 50 ft with 2 Turns(QC): 5 Walk 150 ft (QC): 5 Gait Assistive Device: FWW safe and functional with no deviation Assessment Patient displayed good dynamic balance with all gross motor skills and dressing with OT present to assess. PT to dismiss patient from services at this time. PT Senior Care Goals Interior Design Instructor Goals PT Senior Care Goals Time Frame: Jun 22, 2022 Roll Left & Right (QC): 6 Sit to Lying (QC): 6 Lying-Sitting on Side/Bed(QC): 6 Sit to Stand (QC): 4 Chair/Fdz-dp-Tmxzv Xfer(QC): 4 Toilet Transfer (QC): 4 Walk 10 feet (QC): 4 Walk 50ft with 2 Turns (QC): 4 Walk 150 ft (QC): 4 PT Plan Treatment/Plan Treatment Plan: Discontinue PT, goals met Treatment Plan: Bed Mobility, Education, Functional Activity Pete, Functional Strength, Gait, Therapeutic Exercise, Transfers Treatment Duration: Jun 22, 2022 Frequency: 6 times per week Estimated Hrs Per Day: .25 hour per day Patient and/or Family Agrees t: Yes Time Time In: 1120 Time Out: 1134 DATE: Jun 14, 2022 Total Billed Treatment Time: 14 Total Billed Treatment 1 visit FA 14 min GABRIELLA WILLIAMSON PT Jun 14, 2022 11:43
--- NOTE | 2022-06-14 11:46 | Occupational Ther Daily Note ---
OT Current Status-Daily Note Subjective UP alert and agreeable to OT Mental Status/Objective Patient Orientation: Situation ADL-Treatment Therapy Code Descriptions/Definitions Functional Priddy Measure: 0=Not Assessed/NA 4=Minimal Assistance 1=Total Assistance 5=Supervision or Setup 2=Maximal Assistance 6=Modified Priddy 3=Moderate Assistance 7=Complete IndependenceSCALE: Activities may be completed with or without assistive devices. 1-Mdfuhgnvyv-qilmwan completes the activity by him/herself with no assistance from a helper. 5-Set-up or Clean-up Assistance-helper sets up or cleans up; patient completes activity. Ashley assists only prior to or following the activity. 4-Supervision or Touching Assistance-helper provides verbal cues and/or touching/steadying and/or contact guard assistance as patient completes activit y. Assistance may be provided throughout the activity or intermittently. 3-Partial/Moderate Assistance-helper does LESS THAN HALF the effort. Ashley lifts, holds or supports trunk or limbs, but provides less than half the effort. 2-Substantial/Maximal Assistance-helper does MORE THAN HALF the effort. Ashley lifts or holds trunk or limbs and provides more than half the effort. 2-Fibskndck-uxmhnm does ALL the effort. Patient does none of the effort to complete the activity. Or, the assistance of 2 or more helpers is required for the patient to complete the activity. If activity was not attempted, code reason: 7-Patient Refused. 9-Not Applicable-not attempted and the patient did not perform the activity before the current illness, exacerbation or injury. 10-Not Attempted due to Environmental Limitations-(lack of equipment, weather restraints, etc.). 88-Not Attempted due to Medical Conditions or Safety Concerns. Eating (QC): 6 Oral Hygiene (QC): 6 Shower/Bathe Self (QC): 7 Upper Body Dressing (QC): 6 Lower Body Dressing (QC): 5 On/Off Footwear: 6 Toileting Hygiene (QC): 7 Toilet Transfer (QC): 7 ADLS at PLOF and above Education OT Patient Education: Correct positioning, Progress toward Goal/Update tx plan, Purpose of tx/functional activities, Reviewed precautions, Rehab process, Safety issues, Transfer techniques Teaching Recipient: Patient, Family Teaching Methods: Demonstration, Discussion Response to Teaching: Return Demonstration OT Detention Goals Detention Goals Eating (QC): 6 Oral Hygiene (QC): 6 Toileting Hygiene (QC): 6 Shower/Bathe Self (QC): 6 Upper Body Dressing (QC): 6 Lower Body Dressing (QC): 6 On/Off Footwear (QC): 6 1=Demonstrate adherence to instructed precautions during ADL tasks. 2=Patient will verbalize/demonstrate understanding of assistive devices/modifications for ADL. 3=Patient will improve strength/tolerance for activity to enable patient to perform ADL's. OT Education/Plan Discharge Recommendations Plan/Recommendations: Discharge/Goals Met Therapy Discharge Recommendati: Home & Family Treatment Plan/Plan of Care Treatment,Training & Education: Yes Patient would benefit from OT for education, treatment and training to promote independence in ADL's, mobility, safety and/or upper extremity function for ADL's. Plan of Care: ADL Retraining, Functional Mobility, Group Exercise/Act as Ind, UE Funct Exercise/Act Treatment Duration: Jun 22, 2022 Frequency: 3 times per week (3-5 TIMES PER WEEK) Estimated Hrs Per Day: .25 hour per day Agreement: Yes Rehab Potential: Fair Fully dressed in recliner all needs met Time Start Time: 11:30 Stop Time: 11:45 DATE: Jun 14, 2022 Total Time Billed (hr/min): 15 Billed Treatment Time ADL 15 min ZORAIDA NGUYEN OT Jun 14, 2022 11:46
[2022-06-14] MEDS ORDERED: MECL-149 PO (12:21)
[2022-06-14] MEDS ORDERED: ONDA4TAB11 PO (12:21)
[2022-06-14] MEDS ORDERED: ASPI-808 PO (12:21)
--- NOTE | 2022-06-14 12:22 | Discharge Summary ---
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 [facility] neurology was consulted by the ED provider who recomended ASA and further cardiac work-up with no need for immediate intervention. Further work-up included Echocardiogram (06/13) which revealed LVEF of 60-65%, Carotid US (06/13) which revealed no hemodynamically significant stenosis, and Head MRI (06/13) which showed no acute intracranial abnormalities. During her stay she had no other complications and her labwork was mostly unremarkable. By day of discharge she was still having some dizziness, but it was mildly improved from admission and she was given scopalamine patches to help. She will need to follow up closely with PCP and neurology in the out patient setting upon discharge. ROCIO BOWEN Labs and Pending Lab Test: Laboratory Tests 06/13/22 15:14: Glucometer 111H 06/13/22 16:44: Potassium Level 4.4 06/13/22 20:13: Glucometer 151H 06/14/22 04:08: Potassium Level 4.0, Sodium Level 135, Chloride Level 103, Carbon Dioxide Level 20L, Anion Gap 12, Blood Urea Nitrogen 7, Creatinine 0.77, Estimat Glomerular Filtration Rate 81, BUN/Creatinine Ratio 9, Glucose Level 115H, Mean Blood Glucose [Pending], Hemoglobin A1c [Pending], Calcium Level 8.8, Corrected Calcium 9.1, Magnesium Level 2.2, Total Bilirubin 0.5, Aspartate Amino Transf (AST/SGOT) 12, Alanine Aminotransferase (ALT/SGPT) 14, Alkaline Phosphatase 61, Total Protein 6.0L, Albumin 3.6, Triglycerides Level 362H, Cholesterol Level 154, LDL Cholesterol Direct 55, VLDL Cholesterol 72H, HDL Cholesterol 32L 06/14/22 04:21: White Blood Count 9.0, Red Blood Count 3.90, Hemoglobin 11.4L, Hematocrit 35, Mean Corpuscular Volume 91, Mean Corpuscular Hemoglobin 29, Mean Corpuscular Hemoglobin Concent 32, Red Cell Distribution Width 12.7, Platelet Count 276, Mean Platelet Volume 9.9, Immature Granulocyte % (Auto) 1, Neutrophils (%) (Auto) 58, Lymphocytes (%) (Auto) 30, Monocytes (%) (Auto) 7, Eosinophils (%) (Auto) 4, Basophils (%) (Auto) 1, Neutrophils # (Auto) 5.2, Lymphocytes # (Auto) 2.7, Monocytes # (Auto) 0.6, Eosinophils # (Auto) 0.3, Basophils # (Auto) 0.1, Immature Granulocyte # (Auto) 0.1 06/14/22 10:39: Glucometer 129H Microbiology 06/12/22 MRSA Screen - Final, Complete MRSA not isolated 06/12/22 Urine Culture - Final, Complete 3 or more isolates Home Meds Active Aspirin 325 Mg Tablet 325 Mg PO DAILY Ondansetron Odt (Ondansetron) 4 Mg Tab.rapdis 4 Mg PO Q6H PRN Meclizine HCl 25 Mg Tablet 50 Mg PO Q6H PRN Reported Centrum Women Tablet (Multivitamin/Iron/Folic Acid) 18 Mg Iron-400 Mcg Tablet 1 Each PO DAILY Nebivolol HCl 2.5 Mg Tablet 2.5 Mg PO DAILY Montelukast Sodium 10 Mg Tablet 10 Mg PO DAILY Famotidine 20 Mg Tablet 20 Mg PO HS Neurontin (Gabapentin) 300 Mg Capsule 300 Mg PO TID Calcium Citrate +Vit D3 Tablet (Calcium Citrate/Vitamin D3) 1 Each Tablet 1 Each PO DAILY Vitamin D3 (Cholecalciferol (Vitamin D3)) 25 Mcg Tablet 25 Mcg PO DAILY Methocarbamol 750 Mg Tablet 750 Mg PO TID PRN Loratadine 10 Mg Tablet 10 Mg PO DAILY Hydrochlorothiazide 25 Mg Tablet 25 Mg PO DAILY Atorvastatin Calcium 40 Mg Tablet 40 Mg PO DAILY Amlodipine Besylate 5 Mg Tablet 5 Mg PO DAILY Lisinopril 20 Mg Tablet 20 Mg PO BID Tylenol Pm Ex-Strength Caplet (Acetaminophen/Diphenhydramine) 500 Mg-25 Mg Tablet 2 Each PO HS Ventolin Hfa (Albuterol Sulfate) 1 Puff Puff 2 Puff IH Q4H PRN Pantoprazole Sodium 40 Mg Tablet.dr 40 Mg PO DAILY Aspirin 81 Mg Tab.chew 81 Mg PO DAILY Assessment/Pt Instructions PCP and cerebrovascular expert for left vertebral artery stenosis Discharge Planning: <30 minutes discharge planning Discharge Instructions Discharge Diet: No Restrictions Discharge Physical Examination Vital Signs Vital Signs Date Time Temp Pulse Resp B/P (MAP) Pulse Ox O2 Delivery O2 Flow Rate FiO2 06/14/22 08:30 94 Room Air 06/14/22 08:00 36.7 63 12 143/84 (103) General Appearance: No Apparent Distress, WD/WN, Chronically ill Respiratory: Lungs Clear, Normal Breath Sounds Neurologic/Psychiatric: Alert, Oriented x3, No Motor/Sensory Deficits, Normal Mood/Affect, Other (chronic delayed responses during conversation) Allergies: Coded Allergies: naproxen (Verified Allergy, Intermediate, RASH/HIVES, 08/04/19) diphenhydramine (Verified Allergy, Mild, RASH, 08/04/19) Penicillins (Verified Allergy, Unknown, 06/12/22) Phenytoin Sodium Extended (Verified Allergy, Unknown, 08/04/19) meperidine HCl (Verified Allergy, Unknown, 08/04/19) phenytoin sodium (Verified Allergy, Unknown, 08/04/19) Discharge Summary Date of Admission Jun 12, 2022 at 22:56 Date of Discharge Discharge Date: Jun 14, 2022 Admission Diagnosis TAD MILLER DO Jun 14, 2022 12:22
--- NOTE | 2022-06-14 12:22 | D/C HH Face to Face Order ---
D/C HH Face to Face Orders Reconcile Patient Problems Problems Reviewed?: Yes Instructions for Patient HH Patient Instructions/FollowUp: PCP 1 week Physician to follow Patient: [facility] Discharge Diet for Home: No Restrictions Patient Problems: Dizziness Verterbral artery stenosis Patient Data-Allergies,Ht & Wt Patient Allergies: Coded Allergies: naproxen (Verified Allergy, Intermediate, RASH/HIVES, 08/04/19) diphenhydramine (Verified Allergy, Mild, RASH, 08/04/19) Penicillins (Verified Allergy, Unknown, 06/12/22) Phenytoin Sodium Extended (Verified Allergy, Unknown, 08/04/19) meperidine HCl (Verified Allergy, Unknown, 08/04/19) phenytoin sodium (Verified Allergy, Unknown, 08/04/19) Height (Feet): 5 Height (Inches): 2.00 Weight (Pounds): 171 Weight (Ounces): 0.0 Home Health Need/Face to Face Date of Face to Face: Jun 14, 2022 Clinical Findings: Generalized weakness and fatigue, Instability, Muscle weakness I have seen Pt [id number]: Yes Discharged To: Home Diagnosis/Conditions: Debility Patient is Homebound due to: CognItive deficits, Ector fall risk due to instabilty, Muscle weakness Homebound Status Due to the above stated illness, injury or surgical procedure (medical condition or diagnosis) and associated clinical findings, the patient is homebound because of his/her inability to leave home except with aid of a supportive device and/or person AND leaving the home requires a considerable and taxing effort or is medically contraindicated. Pt req the following assistanc: [facility] Nursing Orders Home Health Services Order: Nursing Services, Household Coordinator-Evaluate & Treat, Physical Therapy-Evaluate & Treat Home Health Infusion Therapy Line Start Date: Jun 12, 2022 Certify Stmt I certify that this patient is under my care and that I, a nurse practitioner or a physician; a assistant administrator working with me, had a face to face encounter that - meets the physician face to face encounter requirements with this patient as dated. TAD MILLER DO Jun 14, 2022 12:22
--- NOTE | 2022-06-14 12:31 | Progress Note ---
ROCIO BOWEN 06/14/22 1231: Progress Note Hospital Course This patient was admitted to [facility] from 06/12-06/14 after having dizziness at home and found to have segment of high grade stenosis and or occlusion of Left vertebral artery indicating possible dissection on Head CTA. [facility] neurology was consulted by the ED provider who recomended ASA and further cardiac work-up with no need for immediate intervention. Further work-up included Echocardiogram (06/13) which revealed LVEF of 60-65%, Carotid US (06/13) which revealed no hemodynamically significant stenosis, and Head MRI (06/13) which showed no acute intracranial abnormalities. During her stay she had no other complications and her labwork was mostly unremarkable. By day of discharge she was still having some dizziness, but it was mildly improved from admission and she was given scopalamine patches to help. She will need to follow up closely with PCP and neurology in the out patient setting upon discharge. TABATHA MILLER DO 06/14/22 [id number]: Supervisory-Addendum Brief Verification & Attestation Participated in pt care: history, MDM, physical Personally performed: exam, history, MDM, supervision of care Care discussed with: Medical Student Procedures: n/a Results interpretation: Verified all documentation Verification and Attestation of Medical Student E/M Service A medical student performed and documented this service in my presence. I reviewed and verified all information documented by the medical student and made modifications to such information, when appropriate. I personally performed the physical exam and medical decision making. Tabatha Miller, Jun 14, 2022,16:57 ROCIO BOWEN Jun 14, 2022 12:31 TABATHA MILLER DO Jun 14, 2022 16:57
[2022-06-14 13:07] VITALS: BP 111/79
--- NOTE | 2022-06-14 17:01 | Cardiology Progress Note ---
Subjective Date Seen by Provider: Jun 14, 2022 Time Seen by Provider: 09:45 Subjective/Events-last exam no acute issue sovernight. pt doing well. no cp/sob/palpitations. up and walking yesterday with improved dizziness. Exam Vital Signs Vital Signs Date Time Temp Pulse Resp B/P (MAP) Pulse Ox O2 Delivery O2 Flow Rate FiO2 06/14/22 13:07 36.5 70 16 111/79 91 Room Air Physical Exam Gen: No acute distress; A+O x 3, sitting comfortably in the bed Neck: soft supple, no cervical LAD Lungs: CTA-bilaterally; breath sounds diminished bilaterally but no jeanine wheezing, rales or rhonchi CV: nl s1/s2, no m-g-r, RRR Abd: soft nt nd, no HSM, + BS Ext: wwp, no c-c-e; 2+ DP and femoral pulses skin: no lesions rashes or ecchymoses are noted. Labs Laboratory Tests Test 06/13/22 20:13 06/14/22 04:08 06/14/22 04:21 06/14/22 10:39 Range/Units Glucometer 151 H 129 H 70-110 MG/DL Sodium Level 135 135-145 MMOL/L Potassium Level 4.0 3.6-5.0 MMOL/L Chloride Level 103 98-107 MMOL/L Carbon Dioxide Level 20 L 21-32 MMOL/L Anion Gap 12 5-14 MMOL/L Blood Urea Nitrogen 7 7-18 MG/DL Creatinine 0.77 0.60-1.30 MG/DL Estimat Glomerular Filtration Rate 81 BUN/Creatinine Ratio 9 Glucose Level 115 H 70-105 MG/DL Calcium Level 8.8 8.5-10.1 MG/DL Corrected Calcium 9.1 8.5-10.1 MG/DL Magnesium Level 2.2 1.6-2.4 MG/DL Total Bilirubin 0.5 0.1-1.0 MG/DL Aspartate Amino Transf (AST/SGOT) 12 5-34 U/L Alanine Aminotransferase (ALT/SGPT) 14 0-55 U/L Alkaline Phosphatase 61 40-136 U/L Total Protein 6.0 L 6.4-8.2 GM/DL Albumin 3.6 3.2-4.5 GM/DL Triglycerides Level 362 H <150 MG/DL Cholesterol Level 154 < 200 MG/DL LDL Cholesterol Direct 55 1-129 MG/DL VLDL Cholesterol 72 H 5-40 MG/DL HDL Cholesterol 32 L 40-60 MG/DL White Blood Count 9.0 4.3-11.0 10^3/uL Red Blood Count 3.90 3.80-5.11 10^6/uL Hemoglobin 11.4 L 11.5-16.0 g/dL Hematocrit 35 35-52 % Mean Corpuscular Volume 91 80-99 fL Mean Corpuscular Hemoglobin 29 25-34 pg Mean Corpuscular Hemoglobin Concent 32 32-36 g/dL Red Cell Distribution Width 12.7 10.0-14.5 % Platelet Count 276 130-400 10^3/uL Mean Platelet Volume 9.9 9.0-12.2 fL Immature Granulocyte % (Auto) 1 % Neutrophils (%) (Auto) 58 42-75 % Lymphocytes (%) (Auto) 30 12-44 % Monocytes (%) (Auto) 7 0-12 % Eosinophils (%) (Auto) 4 0-10 % Basophils (%) (Auto) 1 0-10 % Neutrophils # (Auto) 5.2 1.8-7.8 10^3/uL Lymphocytes # (Auto) 2.7 1.0-4.0 10^3/uL Monocytes # (Auto) 0.6 0.0-1.0 10^3/uL Eosinophils # (Auto) 0.3 0.0-0.3 10^3/uL Basophils # (Auto) 0.1 0.0-0.1 10^3/uL Immature Granulocyte # (Auto) 0.1 0.0-0.1 10^3/uL A/P-Cardiology Assessment/Plan Ms. Renae is a 76-year-old female with a history of CAD status post PCI to the LAD, diabetes, hypertension, COPD, not on home O2 although recommended, hyperlipidemia, GERD who presents for evaluation of dizziness and occipital headache x1 week, found to have a left vertebral artery occlusion. ## Left vertebral artery occlusion: Neurology has been consulted and recommended a cardiac work-up with an echocardiogram and risk factor modification. - Resume full dose anti-HTN - cont asa 81 qd for now - Echocardiogram with bubble study negative for intracardiac shunt and demonstrates normal LV-RV function. - Brain MRI negative for CVA - Follow-up carotid ultrasound demonstrates no hemodynamically significant stenosis bilaterally - Review of telemetry demonstrates only sinus rhythym - no potenital cardiac etiology identified. ## HTN: BPs up to 150s - start home regimen ## risk factor modification: - LDL 55, TG 362 (can consider addition of fibrates) - a1c: Check A1c and fasting lipid panel ## hypokalemia: K up to 4.0 from 3.0 yesterday ## Dispo: - follow-up with neurology to figure out next steps - we will sign off for now, pl call with questions. OVIDIO BARON MD Jun 14, 2022 5:01 pm
[2022-06-14] MEDS ORDERED: cefTRIAXone 1 GM/NS 50 ML IVPB IV SCH ×2 (21:00)
[2022-06-14] MEDS ORDERED: FAMOTIDINE 20 MG (PEPCID) TABLET PO SCH (21:00)
[2022-06-15] MEDS ORDERED: SCOPOLAMINE 1.5 MG (TRANSDERM-SCOP) PATCH TOP SCH (21:00)
== END 2022-06-14 12:19 | disposition home health service (06) ==
LOC: EDUNIT# 18:03 → ER 18:04 → UNDOADMOB 22:56 → INTOOBSV 22:56 → ICU 22:56 → UNDODISOB 06-14 12:19
PROVIDERS: ADMIT Internal Medicine; ATTEND Family Medicine
DX: I65.02 Occlusion and stenosis of left vertebral artery (principal); J44.9 Chronic obstructive pulmonary disease, unspecified; I10 Essential (primary) hypertension; J45.909 Unspecified asthma, uncomplicated; E87.6 Hypokalemia; N39.0 Urinary tract infection, site not specified; E78.5 Hyperlipidemia, unspecified; I25.10 Atherosclerotic heart disease of native coronary artery without angina pectoris; K21.9 Gastro-esophageal reflux disease without esophagitis; Z95.5 Presence of coronary angioplasty implant and graft; Z79.82 Long term (current) use of aspirin; Z79.899 Other long term (current) drug therapy
CPT/HCPCS: 36415; 70450; 70496; 70498; 70551; 71045; 80053; 80061; 81000; 82947; 83036; 83735; 83874; 83880; 84100; 84132; 84443; 84484; 85025; 85610; 85730; 87081; 87088; 93005; 93041; 93306; 93880; 96361; 96366; 96372; 96375; 96376; G0378

== ENCOUNTER 2022-06-16 10:03 | Emergency (ER) | payer MEDICARE, MEDICAID ==
[~2022-06-16] VITALS: Ht 157 cm; Wt 80.0 kg
[~2022-06-16 10:03] MED LIST changes: +ASPI-808 PO; +FAMO20TA5 PO; +GABA300C PO; +MECL-149 PO; +MULT-1060 PO; +NEBI2.5T6 PO; +ONDA4TAB11 PO
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
--- NOTE | 2022-06-16 12:20 | Diagnostic Imaging Report ---
INDICATION: Post hospital discharge one day earlier. Redness, warmth right ankle area with pain TECHNIQUE: Three views of the right ankle CORRELATION STUDY: None FINDINGS: The bony alignment is anatomic. The talar dome is intact. The ankle mortise is maintained. Small plantar calcaneal spur. There is no acute fracture or dislocation. Extensive soft tissue edema present. IMPRESSION: Negative for acute bony abnormality of the ankle. Extremity soft tissue edema. Dictated by: Dictated on workstation # [id number]
[2022-06-16] MEDS ORDERED: ACETAMINOPHEN 325 MG TABLET PO STA (12:39)
[2022-06-16] MEDS ORDERED: ENOXAPARIN 40 MG/0.4 ML (LOVENOX) SYR SC STA (13:11)
[2022-06-16 13:22] VITALS: BP 125/64
== END 2022-06-16 13:22 | disposition home or self-care (01) ==
LOC: EDUNIT# 10:03 → ER 10:06
DX: S93.491A Sprain of other ligament of right ankle, initial encounter (principal); Z79.82 Long term (current) use of aspirin; Z79.01 Long term (current) use of anticoagulants; X50.1XXA Overexertion from prolonged static or awkward postures, initial encounter; W19.XXXA Unspecified fall, initial encounter; Y92.512 Supermarket, store or market as the place of occurrence of the external cause
CPT/HCPCS: 36415; 73610; 85379

== ENCOUNTER → 2022-06-17 | Outpatient (CLI) | payer MEDICARE, MEDICAID ==
--- NOTE | 2022-06-17 08:50 | Diagnostic Imaging Report ---
PROCEDURE: US right lower extremity venous. TECHNIQUE: Multiple real-time grayscale images were obtained over the right lower extremity in various projections. Additional spectral analysis and color Doppler duplex images were also obtained. INDICATION: Pain and swelling to the right lower extremity. There is no evidence of right lower extremity DVT. Right lower extremity deep venous system shows normal compressibility with normal response to augmentation and Valsalva. No fluid collection or mass is detected. IMPRESSION: No evidence of right lower extremity DVT. Dictated by: Dictated on workstation # [id number]
== END ==
LOC: RAD 07:18
PROVIDERS: ATTEND Nurse Practitioner
DX: M79.89 Other specified soft tissue disorders (principal); M79.604 Pain in right leg

== ENCOUNTER 2022-07-16 09:01 | Emergency (ER) | payer MEDICARE, MEDICAID ==
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
--- NOTE | 2022-07-16 10:26 | Diagnostic Imaging Report ---
CHEST PA/LAT (2 VIEW) INDICATION: cough, dyspnea. COMPARISON: Chest radiograph on 12/17/2012, CT of the chest 01/18/2017.. FINDINGS: Lungs: Low lung volume. No focal consolidation. Normal pulmonary vasculature. Bibasilar subsegmental atelectasis. Pleura: No pleural effusion or pneumothorax. Heart and Mediastinum: Cardiomegaly. Pulmonary vascularity is within normal limits. Osseous Structures and Soft Tissues: No acute osseous abnormality. Normal soft tissues. Kyphotic curvature of the thoracic spine. IMPRESSION: No acute cardiopulmonary process. Dictated by: Dictated on workstation # [id number]
[2022-07-16 10:51] VITALS: BP 109/76
== END 2022-07-16 10:51 | disposition home or self-care (01) ==
LOC: EDUNIT# 09:01 → ER 09:03
DX: J40 Bronchitis, not specified as acute or chronic (principal)
CPT/HCPCS: 71046

== ENCOUNTER 2022-10-27 18:49 | Emergency (ER) | payer MEDICARE, MEDICAID ==
[~2022-10-27] VITALS: Ht 162 cm; Wt 77.0 kg
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
--- NOTE | 2022-10-27 20:24 | Diagnostic Imaging Report ---
INDICATION: Right upper arm pain. COMPARISON: 03/23/2020. FINDINGS: Two radiographic views of the right humerus were obtained. There is chronic gross deformity to the proximal humerus. Large extraosseous calcifications are noted interposed between the acromion and humeral head. This is stable compared to 03/23/2020. No new acute fracture is seen. Glenohumeral joint space appears appropriate. Right elbow joint space is not well evaluated. No unexpected radiopaque foreign body is seen. IMPRESSION: No new acute fracture or dislocation of the right humerus. Dictated by: Dictated on workstation # [id number]
--- NOTE | 2022-10-27 20:26 | Diagnostic Imaging Report ---
INDICATION: Right chest and rib pain status post traumatic injury. COMPARISON: None. FINDINGS: Three views of the right ribs were obtained. There is no fracture, dislocation, or other acute bony abnormality identified. Visualized portions of the right lung are clear. The surrounding soft tissues appear unremarkable. No radiopaque foreign body is seen. IMPRESSION: No healing or displaced right-sided rib fracture. Dictated by: Dictated on workstation # [id number]
--- NOTE | 2022-10-27 20:28 | Diagnostic Imaging Report ---
INDICATION: Right shoulder pain status post traumatic injury. COMPARISON: 03/23/2020. FINDINGS: Three radiographic views of the right shoulder were obtained and again show chronic gross deformity of the humeral head. Large extraosseous calcification is noted projecting between the acromion and superior margins of the humeral head. Appearance is stable compared to 03/23/2020. There is no new acute fracture or dislocation. Included portions of the right hemithorax are clear. No unexpected radiopaque foreign body is identified. IMPRESSION: Chronic deformity to the right shoulder. No new acute fracture or dislocation. Dictated by: Dictated on workstation # [id number]
[2022-10-27 20:50] VITALS: BP 139/89
== END 2022-10-27 20:51 | disposition home or self-care (01) ==
LOC: EDUNIT# 18:49 → ER 18:51
DX: M79.621 Pain in right upper arm (principal); R07.89 Other chest pain; Z95.5 Presence of coronary angioplasty implant and graft; W01.0XXA Fall on same level from slipping, tripping and stumbling without subsequent striking against object, initial encounter
CPT/HCPCS: 71100; 73030; 73060

== ENCOUNTER → 2022-11-27 | Outpatient (CLI) | payer MEDICARE, MEDICAID ==
[~2022-11-27] MED LIST changes: +FAMO-356 PO; -FAMO20TA3 PO; -MECL-149 PO; +MECL-291 PO; +ROPI0.5T37 PO; -ROPI0.5T4 PO
[2022-11-27 10:30] LABS: POTASSIUM 3.4 MMOL/L (3.6-5.0)
[2022-11-27 10:31] LABS: ALBUMIN 4.2 GM/DL (3.2-4.5)
[2022-11-27 10:32] LABS: CALCIUM 9.4 MG/DL (8.5-10.1)
[2022-11-27 10:33] LABS: TOTAL PROTEIN 6.6 GM/DL (6.4-8.2)
[2022-11-27 10:35] LABS: BILIRUBIN,TOTAL 0.5 MG/DL (0.1-1.0)
[2022-11-27 10:37] LABS: CREATININE SERUM 1.02 MG/DL (0.60-1.30)
== END ==
LOC: LAB 09:55
PROVIDERS: ATTEND Internal Medicine Cardiovascular Disease
DX: I10 Essential (primary) hypertension (principal); I65.29 Occlusion and stenosis of unspecified carotid artery; J44.9 Chronic obstructive pulmonary disease, unspecified; E78.2 Mixed hyperlipidemia
CPT/HCPCS: 36415; 80053; 80061

== ENCOUNTER 2022-12-26 20:45 | Outpatient (CLI) | payer MEDICARE, MEDICAID | END 2022-12-27 06:09 | LOC: CANPRECLI → SLEEP 20:45 | PROVIDERS: ATTEND Nurse Practitioner | DX: G47.33 Obstructive sleep apnea (adult) (pediatric) (principal) | CPT/HCPCS: 95810 ==